=== PATIENT | female | born 1950 | race Caucasian/White ===

== ENCOUNTER 2017-06-18 11:52 | Inpatient (IN) | payer OTHER ==
[2017-06-18] MEDS ORDERED: METHYLPREDNISOLONE 125 MG INJ ONE (12:54)
[2017-06-18] MEDS ORDERED: LEVALBUTEROL 1.25 MG/3 ML NEB ONE (12:54)
--- NOTE | 2017-06-18 12:56 | RAD REPORT ---
EXAM DESCRIPTION: Vikash Single View06/18/2017 12:47 pm CLINICAL HISTORY: Shortness of breath COMPARISON: May 31, 2017 FINDINGS: The lungs appear clear of acute infiltrate. The heart is normal size IMPRESSION: No acute abnormalities displayed
[2017-06-18 13:11] LABS: Absolute Lymphocytes (CBC) 1.7 K/uL (0.7-4.9); Absolute Monocytes 0.9 K/uL (0.1-1.3); Absolute Neutrophil 17.7 K/uL (1.8-8.0); Basophils % 0.6 % (0-1.3); Hematocrit 41.8 % (36.0-45.0); Lymphocytes % 8.3 % (15.3-44.8); MCH 27.7 pg (27.0-35.0); MCV 89.2 fL (80-100); MPV 7.7 fL (7.6-11.3); Monocytes % 4.3 % (3.3-12.3); RBC Red Blood Cell Count 4.69 M/uL (3.86-4.86)
[2017-06-18 13:20] LABS: Protime INR 0.91
[2017-06-18 13:25] LABS: Potassium 4.4 mEq/L (3.6-5.0)
[2017-06-18 13:26] LABS: Magnesium 1.9 mg/dL (1.8-2.5)
[2017-06-18 13:36] LABS: CKMB Creatine Kinase MB 1.8 ng/ml (0.3-4.0)
[2017-06-18 13:47] LABS: Blood Morphology Comment NOT SEEN (NOT SEEN); Platelet Estimate ADEQ; Urine White Blood Cell Casts OK
[2017-06-18] MEDS ORDERED: ALBUTEROL 2.5 MG/3 ML NEB SOL ONE (13:57)
[2017-06-18] MEDS ORDERED: HYDROCODONE/APAP 5/325 MG TAB ONE (14:48)
--- NOTE | 2017-06-18 15:05 | ER ---
Nurse's Notes [facility] Name: Amy Velasquez Age: 67 yrs Sex: Female : 1950 Arrival Date: 06/18/2017 Time: 11:56 Bed 16 Private MD: Lucho Catalan Diagnosis: Chronic obstructive pulmonary disease with (acute) exacerbation;Dyspnea, unspecified Presentation: 06/18 11:58 Presenting complaint: Patient states: "My doctor sent me here. I have had pneumonia for lk1 2 weeks and can't get better.". Transition of care: patient was not received from another setting of care. Onset of symptoms was June 04, 2017. Care prior to arrival: None. 11:58 Method Of Arrival: Wheelchair lk1 11:58 Acuity: BHARTI 2 lk1 Triage Assessment: 12:01 General: Appears in no apparent distress. Behavior is calm, cooperative, appropriate lk1 for age. Pain: Complains of pain in back and chest. Pain: Pain currently is 9 out of 10 on a pain scale. Respiratory: Reports shortness of breath cough that is Airway is patent Respiratory effort is labored, with nasal flaring, pursed lip, Respiratory pattern is symmetrical, tachypnea Onset: The symptoms/episode began/occurred 2 weeks ago, the patient has moderate shortness of breath. Historical: - Allergies: 12:01 Amitriptyline; lk1 12:01 Cipro; lk1 12:01 Demerol; lk1 12:01 Morphine (rash, Itching); lk1 12:01 Phenobarbital; lk1 - Home Meds: 16:47 amlodipine 5 mg tab 1 tab once daily [Active]; aspirin 81 mg Oral chew 1 tab once daily [Active]; Cheratussin AC 10-100 mg/5 mL oral liqd 10 mL every 4 hours [Active]; clonazepam 1 mg Oral TbDL 1 tab once daily [Active]; clonazepam 1 mg Oral tab 1 tab 2 times per day [Active]; furosemide 20 mg Oral tab 1 tab once daily [Active]; gabapentin 400 mg oral cap 1 cap 3 times per day [Active]; lisinopril 40 mg Oral tab 1 tab twice a day [Active]; metoprolol tartrate 50 mg Oral tab 1 tab once daily [Active]; Nexium 40 mg Oral cpDR 1 cap once daily [Active]; nystatin 100,000 unit/gram Topical crea 3 times per day [Active]; oxycodone-acetaminophen 10-325 mg Oral tab 1 tab every 6 hours for Pain [Active]; prednisone 20 mg Oral tab 1 tab 2 times per day [Active]; sertraline 50 mg oral tab 3 tabs once daily [Active]; Bactrim DS 800-160 mg Oral tab 1 tab once daily [Active]; Tessalon Perles 100 mg Oral cap 1 cap 3 times per day [Active]; Ventolin Rotahaler/Rotacaps Inhl four times a day [Active]; - PMHx: 12:01 Anxiety; Asthma; Atrial Fib; CHF; COPD; Degenerative disc disease; Hernia; lk1 Hypertension; ADD/ADHD; cancer, skin; - PSHx: 12:01 Hysterectomy; Hernia repair; lypoma removed; tumor removed ovary; skin cancer removed; lk1 - Immunization history:: Adult Immunizations up to date. - Social history:: Smoking status: Patient/guardian denies using tobacco. - Family history:: not pertinent. - Hospitalizations: : No recent hospitalization is reported. Screenin:53 Abuse screen: Denies threats or abuse. Denies injuries from another. Nutritional hj screening: No deficits noted. Tuberculosis screening: No symptoms or risk factors identified. Fall Risk None identified. Assessment: 12:53 Cardiovascular: Rhythm is regular. Respiratory: Airway is patent Respiratory effort is hj labored, Respiratory pattern is regular, tachypnea Breath sounds with wheezes. 14:16 Reassessment: Patient appears in no apparent distress at this time. No changes from ch previously documented assessment. Patient and/or family updated on plan of care and expected duration. Pain level reassessed. General: Appears in no apparent distress. uncomfortable, Behavior is calm, cooperative, appropriate for age. Respiratory: Reports shortness of breath cough that is productive, Airway is patent Trachea midline Respiratory effort is even, labored, Respiratory pattern is regular, tachypnea Breath sounds are coarse bilaterally. Breath sounds with wheezes bilaterally. GI: No signs and/or symptoms were reported involving the gastrointestinal system. GI: Abdomen is obese, Bowel sounds present X 4 quads. : No signs and/or symptoms were reported regarding the genitourinary system. Derm: Skin is pale. 15:05 Reassessment: Patient appears in no apparent distress at this time. Patient and/or ch family updated on plan of care and expected duration. Pain level reassessed. pt states she feels the same. 15:05 Respiratory: Airway is patent Respiratory effort is even, labored, pt resting, states ch she feels better. pt has been off o2 for the past 30 min. pt tolerating well. Vital Signs: 12:02 BP 158 / 63; Pulse 79; Resp 24; Temp 97.2(TE); Pulse Ox 96% on R/A; Weight 164.2 kg; lk1 Height 5 ft. 4 in. (162.56 cm) (R); Pain 9/10; 14:16 BP 139 / 83; Pulse 75; Resp 24; Pulse Ox 97% on 2 lpm NC; Pain 9/10; ch 15:05 BP 152 / 72; Pulse 77; Resp 20; Temp 97.8; Pulse Ox 93% on R/A; Pain 7/10; ch 16:26 BP 136 / 87; Pulse 77; Resp 24; Temp 98.3; Pulse Ox 94% on R/A; Pain 7/10; ch 12:02 Body Mass Index 62.14 (164.20 kg, 162.56 cm) lk1 ED Course: 11:56 Patient arrived in ED. mr 11:56 Lucho Catalan MD is Private Physician. mr 11:59 Triage completed. lk1 12:04 Arm band placed on right wrist. lk1 12:07 Thom Lynn, SHAD is Primary Nurse. hj 12:19 Francis Mcintyre MD is Attending Physician. rn 12:30 EKG done, by mri special procedures technologist. reviewed by Francis Mcintyre MD. tc 12:40 X-ray completed. Portable x-ray completed in exam room. Patient tolerated procedure jb2 well. 12:42 XRAY CXR (1 view) In Process Unspecified. EDMS 12:52 Inserted saline lock: 22 gauge in right upper arm, using aseptic technique. hj 12:53 Patient has correct armband on for positive identification. Placed in gown. Bed in low hj position. Call light in reach. Side rails up X 1. Adult w/ patient. 12:57 Primary Nurse role handed off by Thom Lynn, SHAD ch 12:57 Rachel Osborne, SHAD is Primary Nurse. ch 12:59 Report received from thom. ch 15:03 Geovanna Ca MD is Hospitalizing Provider. rn 15:05 monitor technician on. Pulse ox on. NIBP on. 15:05 No provider procedures requiring assistance completed. 18:09 Patient admitted, IV remains in place. Administered Medications: 12:26 Drug: Xopenex 1.25 mg Route: Inhalation; hj 12:26 Drug: SOLU-Medrol 125 mg Route: IVP; Site: right upper arm; hj 12:58 Follow up: Response: No adverse reaction; Marked relief of symptoms 13:45 Drug: AtroVENT Aerosol 0.5 mg Route: Inhalation; 14:45 Drug: HYDROcodone-acetaminophen 5 mg-325 mg 1 tabs Route: PO; 18:07 Follow up: Response: No adverse reaction Outcome: 15:04 Decision to Hospitalize by Provider. rn 16:50 Admitted to Med/surg accompanied by tech, via wheelchair, with chart, Report called to sergio 16:50 Condition: stable 16:50 Instructed on the need for admit. 17:02 Patient left the ED. Signatures: Dispatcher [employer] EDMS Rachel Osborne, RN RN Sharifa Ruiz mr Jiménez, Elbert jb2 Francis Mcintyre MD MD rn Callis, Tiffany, benzol still operator EKG Ttc Thom Lynn RN RN hj Kluge, Leah RN RN lk1 Corrections: (The following items were deleted from the chart) 15:07 14:16 Reassessment: Patient appears in no apparent distress at this time. Patient ch and/or family updated on plan of care and expected duration. Pain level reassessed. Patient is alert, oriented x 3, equal unlabored respirations, skin warm/dry/pink. 15:07 15:05 Reassessment: Patient appears in no apparent distress at this time. Patient ch and/or family updated on plan of care and expected duration. Pain level reassessed. Patient is alert, oriented x 3, equal unlabored respirations, skin warm/dry/pink. pt states she feels the same.
--- NOTE | 2017-06-18 15:05 | EDPHYS ---
Physician Documentation [facility] Name: Amy Velasquez Age: 67 yrs Sex: Female : 1950 Arrival Date: 06/18/2017 Time: 11:56 Bed 16 Private MD: Lucho Catalan ED Physician Francis Mcintyre HPI: 06/18 13:18 This 67 yrs old Female presents to ER via Wheelchair with complaints of rn Breathing Difficulty. 13:18 The patient has shortness of breath at rest, with light activity. Onset: The rn symptoms/episode began/occurred 3 week(s) ago. Duration: The symptoms are continuous. The patient's shortness of breath is aggravated by coughing, light activity, talking. Severity of symptoms: At their worst the symptoms were moderate in the emergency department the symptoms are unchanged. The patient has experienced similar episodes in the past. Sent by Dr. Catalan for sob, patient states 3 weeks of sob, took augmentin for suspected pneumonia, + intermittent fever, + productive sputum, no chest pain, + weight gain, sleeps with 2L o2 at home, + increased dyspnea lately. . Historical: - Allergies: 12:01 Amitriptyline; lk1 12:01 Cipro; lk1 12:01 Demerol; lk1 12:01 Morphine (rash, Itching); lk1 12:01 Phenobarbital; lk1 - Home Meds: 16:47 amlodipine 5 mg tab 1 tab once daily [Active]; aspirin 81 mg Oral chew 1 tab once daily ch [Active]; Cheratussin AC 10-100 mg/5 mL oral liqd 10 mL every 4 hours [Active]; clonazepam 1 mg Oral TbDL 1 tab once daily [Active]; clonazepam 1 mg Oral tab 1 tab 2 times per day [Active]; furosemide 20 mg Oral tab 1 tab once daily [Active]; gabapentin 400 mg oral cap 1 cap 3 times per day [Active]; lisinopril 40 mg Oral tab 1 tab twice a day [Active]; metoprolol tartrate 50 mg Oral tab 1 tab once daily [Active]; Nexium 40 mg Oral cpDR 1 cap once daily [Active]; nystatin 100,000 unit/gram Topical crea 3 times per day [Active]; oxycodone-acetaminophen 10-325 mg Oral tab 1 tab every 6 hours for Pain [Active]; prednisone 20 mg Oral tab 1 tab 2 times per day [Active]; sertraline 50 mg oral tab 3 tabs once daily [Active]; Bactrim DS 800-160 mg Oral tab 1 tab once daily [Active]; Tessalon Perles 100 mg Oral cap 1 cap 3 times per day [Active]; Ventolin Rotahaler/Rotacaps Inhl four times a day [Active]; - PMHx: 12:01 Anxiety; Asthma; Atrial Fib; CHF; COPD; Degenerative disc disease; Hernia; lk1 Hypertension; ADD/ADHD; cancer, skin; - PSHx: 12:01 Hysterectomy; Hernia repair; lypoma removed; tumor removed ovary; skin cancer removed; lk1 - Immunization history:: Adult Immunizations up to date. - Social history:: Smoking status: Patient/guardian denies using tobacco. - Family history:: not pertinent. - Hospitalizations: : No recent hospitalization is reported. ROS: 13:18 Constitutional: Negative for fever, chills, and weight loss, Eyes: Negative for injury, rn pain, redness, and discharge, Neck: Negative for injury, pain, and swelling, Cardiovascular: Negative for chest pain, palpitations Respiratory: Negative for pleuritic chest pain Abdomen/GI: Negative for abdominal pain, nausea, vomiting, diarrhea, and constipation, Back: Negative for injury and pain, MS/Extremity: Negative for injury and deformity, Skin: Negative for injury, rash, and discoloration, Neuro: Negative for headache, numbness, tingling, and seizure. Exam: 13:18 Constitutional: Overweight female, mild tachypnea Head/Face: Normocephalic, rn atraumatic. Eyes: Pupils equal round and reactive to light, extra-ocular motions intact. Lids and lashes normal. Conjunctiva and sclera are non-icteric and not injected. Cornea within normal limits. Periorbital areas with no swelling, redness, or edema. ENT: no stridor Neck: Trachea midline, no thyromegaly or masses palpated, and no cervical lymphadenopathy. Supple, full range of motion without nuchal rigidity, or vertebral point tenderness. No Meningismus. Cardiovascular: Regular rate and rhythm with a normal S1 and S2. No gallops, murmurs, or rubs. Normal PMI, no JVD. No pulse deficits. Respiratory: + tachypnea with diffuse exp wheezing, no retractions Abdomen/GI: Soft, non-tender, with normal bowel sounds. No distension or tympany. No guarding or rebound. No evidence of tenderness throughout. Back: No spinal tenderness. No costovertebral tenderness. Full range of motion. MS/ Extremity: Pulses equal, no cyanosis. Neurovascular intact. Full, normal range of motion. Equal circumference. Neuro: Awake and alert, GCS 15, oriented to person, place, time, and situation. Cranial nerves II-XII grossly intact. Motor strength 5/5 in all extremities. Sensory grossly intact. Vital Signs: 12:02 BP 158 / 63; Pulse 79; Resp 24; Temp 97.2(TE); Pulse Ox 96% on R/A; Weight 164.2 kg; lk1 Height 5 ft. 4 in. (162.56 cm) (R); Pain 9/10; 14:16 BP 139 / 83; Pulse 75; Resp 24; Pulse Ox 97% on 2 lpm NC; Pain 9/10; ch 15:05 BP 152 / 72; Pulse 77; Resp 20; Temp 97.8; Pulse Ox 93% on R/A; Pain 7/10; ch 16:26 BP 136 / 87; Pulse 77; Resp 24; Temp 98.3; Pulse Ox 94% on R/A; Pain 7/10; ch 12:02 Body Mass Index 62.14 (164.20 kg, 162.56 cm) lk1 MDM: 12:19 Patient medically screened. rn 15:02 Differential diagnosis: Anemia CHF exacerbation, Chronic Obstructive Pulmonary Disease rn Myocardial Infarction pneumonia, Pneumothorax Psychogenic pulmonary edema, reactive airway disease. Data reviewed: vital signs, nurses notes, lab test result(s), EKG, radiologic studies, and as a result, I will admit patient. Counseling: I had a detailed discussion with the patient and/or guardian regarding: the historical points, exam findings, and any diagnostic results supporting the discharge/admit diagnosis, lab results, radiology results, the need for further work-up and treatment in the hospital. Response to treatment: the patient's symptoms have mildly improved after treatment, and as a result, I will admit patient. Admission orders: after a detailed discussion of the patient's condition and case, the admit orders are written by me. ED course: Symptoms only mildly improved, cxr clear, wbc 20k but may be due to steroid use, will admit for persistent dyspnea/wheezing/tachypnea. Admitted under observation status to Dr. Ca. . 06/18 12:26 Order name: Blood Culture Adult (2) rn 06/18 12:26 Order name: BMP; Complete Time: 13:38 rn 06/18 12:26 Order name: BNP; Complete Time: 13:38 rn 06/18 12:26 Order name: CBC with Diff; Complete Time: 14:14 rn 06/18 12:26 Order name: Ckmb; Complete Time: 13:38 rn 06/18 12:26 Order name: Magnesium; Complete Time: 13:38 rn 06/18 12:26 Order name: PT-INR; Complete Time: 13:38 rn 06/18 12:26 Order name: Ptt, Activated; Complete Time: 13:38 rn 06/18 12:26 Order name: Troponin (emerg Dept Use Only); Complete Time: 13:38 rn 06/18 12:26 Order name: Procalcitonin; Complete Time: 14:14 rn 06/18 12:26 Order name: Blood Culture [facility] 06/18 13:18 Order name: CBC Smear Scan; Complete Time: 14:14 [facility] 06/18 15:53 Order name: Urine Microscopic Only bd 06/18 15:56 Order name: Urine Dipstick--Ancillary (enter results) bd 06/18 12:26 Order name: XRAY CXR (1 view); Complete Time: 12:57 rn 06/18 12:26 Order name: EKG; Complete Time: 12:26 rn 06/18 12:26 Order name: Cardiac monitoring; Complete Time: 12:32 rn 06/18 12:26 Order name: EKG - Nurse/Tech; Complete Time: 12:32 rn 06/18 12:26 Order name: IV Saline Lock; Complete Time: 12:32 rn 06/18 12:26 Order name: Labs collected and sent; Complete Time: 12:57 rn 06/18 12:26 Order name: O2 Per Protocol; Complete Time: 12:32 rn 06/18 12:26 Order name: O2 Sat Monitoring; Complete Time: 12:32 rn 06/18 12:26 Order name: Urine Dipstick-Ancillary (obtain specimen); Complete Time: 16:25 rn Administered Medications: 12:26 Drug: Xopenex 1.25 mg Route: Inhalation; 12:26 Drug: SOLU-Medrol 125 mg Route: IVP; Site: right upper arm; 12:58 Follow up: Response: No adverse reaction; Marked relief of symptoms ch 13:45 Drug: AtroVENT Aerosol 0.5 mg Route: Inhalation; ch 14:45 Drug: HYDROcodone-acetaminophen 5 mg-325 mg 1 tabs Route: PO; 18:07 Follow up: Response: No adverse reaction Disposition: 06/18/17 15:04 Hospitalization ordered by Geovanna Ca for Observation. Preliminary diagnosis are Chronic obstructive pulmonary disease with (acute) exacerbation, Dyspnea, unspecified. - Bed requested for Telemetry/MedSurg (observation). - Status is Observation. - Condition is Stable. - Problem is an ongoing problem. - Symptoms have improved. UTI on Admission? No Signatures: Dispatcher [employer] EDMS Delisa Ontiveros Christina, RN RN Francis Mcintyre MD MD rn Joaquin, Henry, RN RN Ofelia Kellogg RN RN lk1
[2017-06-18] MEDS ORDERED: ALBUTEROL 2.5 MG/3 ML NEB SOL NEB PRN (15:42)
[2017-06-18] MEDS ORDERED: ACETAMINOPHEN 500 MG TAB PO PRN (15:42)
[2017-06-18] MEDS ORDERED: IPRATROPIUM BROM 0.5MG/2.5ML NEB PRN (15:42)
--- NOTE | 2017-06-18 16:26 | EKG ---
Test Date: 2017-06-18 Test Time: 12:17:47 Apple Picker: RALPH MEASUREMENT RESULTS: Intervals: Rate: 72 VA: 168 QRSD: 80 QT: 410 QTc: 448 [place]: P: 73 VA: 168 QRS: -4 T: 71 INTERPRETIVE STATEMENTS: Normal sinus rhythm with sinus arrhythmia Cannot rule out Anterior infarct, age undetermined Abnormal ECG Compared to ECG 05/31/2017 20:46:07 Ventricular premature complex(es) no longer present Myocardial infarct finding still present Electronically Signed On 06-18-17 16:24:31 CDT by Pollo Pinto
[2017-06-18 17:11] LABS: Urine Bacteria >50 /HPF (<20); Urine Culture Reflex Order REFLEXED; Urine RBC <5 /HPF (NONE SEEN)
[2017-06-18 17:14] LABS: Urine Blood TRACE (NEG); Urine Glucose NEGATIVE (NEG); Urine Protein NEGATIVE (NEG); Urine Specific Gravity 1.025 (1.005-1.030); Urine pH 5.5 (5.0-7.0)
[2017-06-18 18:00] VITALS: BMI 62.1
[2017-06-18] MEDS: ENOXAPARIN 40 MG/0.4 ML SQ SCH (18:44)
[2017-06-18] MEDS: CEFTRIAXONE/SWI 1gm 1 GM/10 ML SYR IV SCH (18:45)
[2017-06-18] MEDS: METHYLPREDNISOLONE 40 MG INJ IV SCH (18:45)
[2017-06-18] MEDS ORDERED: PROMETHAZINE 25 MG TABLET PO PRN (19:03)
[2017-06-18] MEDS ORDERED: NITROGLYCERIN 0.4 MG/TAB SL PRN (19:03)
[2017-06-18] MEDS ORDERED: HOME MED 1 EA UNK (Oxycodone Hcl/Acetaminophen [Oxycodone-Acetaminophen 10-325] 1 TAB) PO PRN (19:03)
[2017-06-18] MEDS ORDERED: HOME MED 1 EA UNK (Lisinopril [Zestril] 40 MG) PO SCH (21:00)
[2017-06-18] MEDS: GABAPENTIN 400 MG CAP PO SCH (21:00)
[2017-06-18] MEDS: FUROSEMIDE 40 MG TABLET PO SCH (21:00)
[2017-06-18] MEDS: clonazePAM 1 MG TAB PO PRN (21:05)
[2017-06-18] MEDS ORDERED: OXYCODONE *CR* 10 MG TAB PO PRN (21:14)
[2017-06-19] MEDS: METHYLPREDNISOLONE 40 MG INJ IV SCH ×2 (00:07→10:31)
--- NOTE | 2017-06-19 02:34 | HP ---
Date of Admission: 06/18/2017 Primary Care Physician: Dr. Catalan. Code Status: Full. Chief Complaint: Shortness of breath. History Of Present Illness: The patient is a 67-year-old female with past medical history of COPD, not on home oxygen, hypertension, congestive heart failure, asthma, gastroesophageal reflux disease, degenerative disk disease, morbid obesity, IBS, chronic back pain, depression, who was in her usual state of health. Recently discharged from the hospital in February of 2017. The patient reports shortness of breath especially worse with exertion. Does report some mild wheezing. No fever, cough, or chills. No ill contacts. The patient does report gaining 7 pounds in the past few days. She states she is compliant with her Lasix and her sodium restricted diet. The patient recently completed a multiple courses of antibiotics initially for pneumonia, specifically azithromycin 2 days ago. The patient also reports some generalized weakness. Her symptoms are constant, moderate, progressively worsening. No chest pain. The patient came into the ER for further evaluation. Upon arrival, her vital signs showed blood pressure 115/63, respirations 24, O2 saturation 96% on room air, temperature 97.2, pulse of 79. She was in some mild distress. Past Medical History: Hypertension, COPD, CHF, asthma, GERD, IBS, degenerative disk disease, melanoma removed from under the breast, history of liver tumor, chronic back pain, sees Pain Management Dr. Hale, depression. Past Surgical History: Left ovarian tumor removal, melanoma removed from breast , hysterectomy, and hernia repair. Social History: The patient is , is disabled, has 5 children, in good social support. Family History: Father has heart disease, hypertension, diabetes, cancer, liver disease. Mother has heart disease, hypertension, diabetes, and cancer. Sister has heart disease, hypertension, and diabetes. Brother has hypertension. Social History: Denies any alcohol use, tobacco use, or illicit drug use. Medications: Reviewed. Allergies: TO AMITRIPTYLINE, WHICH CAUSES NAUSEA, VOMITING. MEPERIDINE, MORPHINE, PHENOBARBITAL, WHICH CAUSES ITCHING, HIVES, RASH. Review of Systems: An 11-point system reviewed, negative except as above. Physical Examination: Vital Signs: Temperature 97.2, heart rate 79, blood pressure 158/62, respirations 24, O2 saturation 96% on room air. General: Awake, alert, oriented x3. Some acute distress, morbidly obese female , somewhat ill-appearing. HEENT: Normocephalic and atraumatic. PERRLA. EOMI. Moist mucous membranes. Oropharynx is clear. Normal dentition. Conjunctiva is anicteric. Neck: Supple. Trachea midline. CV: S1, S2. Regular rate and rhythm. Peripheral pulses are present bilaterally. Respiratory: Diminished breath sounds bilaterally. Some expiratory wheezes are present. No stridor. The patient is tachypneic, use of accessory muscles. Gastrointestinal: Abdomen is obese, soft, nontender, nondistended. Positive bowel sounds. No guarding or rigidity. Extremities: No clubbing, cyanosis. 1+ peripheral edema. No calf tenderness. Neuro: Cranial nerves 2 through 12 intact grossly. No focal neurological deficits. Strength is 5/5 in bilateral upper and lower extremities. Sensation intact to light touch. Skin: No rashes. Normal skin turgor. Laboratory Data: Sodium 140, potassium 4.4, chloride 100, CO2 29, BUN 23, creatinine 0.8, glucose 142, calcium 9.4, magnesium 1.9. Troponin less than 0.03. BNP 112. Procalcitonin 0.05. INR 0.91. WBC 20.4, H and H are 13 and 41.8, platelets 327, neutrophils 86%. UA pending. Chest x-ray shows no acute abnormalities. EKG shows normal sinus rhythm with sinus arrhythmia, rate of 72. Assessment And Plan: A 67-year-old female with; 1. Acute chronic obstructive pulmonary disease exacerbation. We will start on DuoNeb and IV steroids. We will monitor pulse ox. Supplemental oxygen as needed. 2. Dyspnea upon exertion likely secondary to chronic obstructive pulmonary disease. 3. Essential hypertension, resume home medications. 4. Diastolic heart failure, compensated. Chest x-ray is clear. We will resume home medications. 5. Asthma, mild intermittent. 6. Gastroesophageal reflux disease. PPI. 7. Irritable bowel syndrome. 8. Degenerative disk disease and chronic back pain, midline, without sciatica , on chronic narcotics. 9. Narcotic dependency. 10. History of melanoma, status post surgery. 11. History of liver tumor. 12. Major depressive disorder, on SSRI. 13. Morbid obesity. 14. Gastrointestinal and deep venous thrombosis prophylaxis with PPI and Lovenox. Plan: Admit the patient to Med-Surg, place as observation. No MPOA or living will /LUIS MIGUEL Voice ID: [id number] MTDD
[2017-06-19 05:08] LABS: BUN Blood Urea Nitrogen 18 mg/dL (6-20); Bicarbonate 31 mEq/L (21-31); Glomerular Filtration Rate > 90 mL/min (=/>90); Glucose Level 163 mg/dL (65-120); Potassium 4.8 mEq/L (3.6-5.0); Sodium Level 140 mEq/L (135-145)
[2017-06-19 05:10] LABS: Absolute Lymphocytes (CBC) 1.1 K/uL (0.7-4.9); Absolute Monocytes 0.2 K/uL (0.1-1.3); Absolute Neutrophil 11.8 K/uL (1.8-8.0); Basophils % 0.7 % (0-1.3); Hematocrit 40.8 % (36.0-45.0); Lymphocytes % 8.1 % (15.3-44.8); MCH 27.5 pg (27.0-35.0); MCV 88.2 fL (80-100); MPV 8.3 fL (7.6-11.3); Monocytes % 1.3 % (3.3-12.3); RBC Red Blood Cell Count 4.63 M/uL (3.86-4.86)
[2017-06-19] MEDS: PANTOPRAZOLE 40MG TABLET PO SCH (06:19)
[2017-06-19] MEDS: ASPIRIN EC 81 MG TAB PO SCH (10:31)
[2017-06-19] MEDS: AMLODIPINE 10 MG TAB PO SCH (10:31)
[2017-06-19] MEDS: METOPROLOL XL 50 MG TAB PO SCH (10:31)
[2017-06-19] MEDS: GABAPENTIN 400 MG CAP PO SCH ×2 (10:31→20:19)
[2017-06-19] MEDS: ONDANSETRON 4 MG/2 ML VIAL IV PRN ×2 (10:31→23:07)
[2017-06-19] MEDS: ENOXAPARIN 40 MG/0.4 ML SQ SCH (10:31)
[2017-06-19] MEDS: CA POLYCARBOPHIL (FIBERCON) 625 MG TAB PO SCH (10:31)
[2017-06-19] MEDS: LISINOPRIL 20 MG TAB PO SCH ×2 (10:32→20:19)
[2017-06-19] MEDS: SERTRALINE HCL 100 MG TAB PO SCH (10:32)
[2017-06-19] MEDS: FUROSEMIDE 40 MG TABLET PO SCH ×2 (10:33→18:02)
[2017-06-19] MEDS: CEFTRIAXONE/SWI 1gm 1 GM/10 ML SYR IV SCH (10:33)
[2017-06-19] MEDS: OXYCODONE *CR* 10 MG TAB PO PRN ×4 (10:57→23:06)
[2017-06-19] MEDS: clonazePAM 1 MG TAB PO PRN (14:08)
[2017-06-19] MEDS: Meropenem 1,000 MG in NA CHLORIDE 0.9% 100 ML IV SCH (18:02)
--- NOTE | 2017-06-19 19:10 | PN ---
Date of Progress Note: 06/19/2017 Subjective: The patient seen and examined. Chart reviewed and case discussed with RN. The patient states her breathing is somewhat better; however, still feeling weak, asking for her pain medications to be adjusted to every 4 hours. Review of Systems: Negative except as above. Medications: Reviewed. Physical Examination: Vital Signs: Temperature 98.4, heart rate 62, blood pressure 176/66, respirations 18, O2 96% on 2 L via nasal cannula. General: Awake, alert, and oriented x3. Morbidly obese female, somewhat ill- appearing, in mild distress. CV: S1, S2. No murmurs. Peripheral pulses present bilaterally. Respiratory: Some diminished breath sounds at the bases, otherwise moving air well. Some mild wheezing. Gastrointestinal: Abdomen is soft, nontender, nondistended. Positive bowel sounds. Extremities: No clubbing, cyanosis. Trace edema. Neurologic: Nonfocal. Laboratory Data: Sodium 140, potassium 4.8, chloride 101, CO2 31, BUN 18, creatinine 0.56, glucose 163, calcium 8.9. WBC 13.1, H and H 12.7 and 40.8, platelets 256, neutrophils 89%. Blood cultures, no growth to date. Urine culture shows 100,000 colony-forming units of gram-negative rods 4+. The patient has history of ESBL producing E. coli. Assessment: A 67-year-old female with; 1. Acute chronic obstructive pulmonary disease exacerbation. Continue DuoNebs. We will taper steroids. Continue supplemental oxygen. The patient does require home oxygen. 2. Chronic respiratory failure. The patient is on oxygen secondary to chronic obstructive pulmonary disease at home. 3. Essential hypertension, stable. 4. Diastolic heart failure, compensated. Continue home medications. 5. Mild intermittent asthma. 6. Gastroesophageal reflux disease. Continue PPI. 7. Irritable bowel syndrome. 8. Degenerative disk disease, chronic back pain in midline without sciatica, on chronic narcotics, dose adjusted. The patient brought in her pill vial, which shows that she takes hydrocodone every 4 hours as needed. 9. Narcotic dependency. 10. History of melanoma status post surgery. 11. History of liver tumor. 12. Major depressive disorder. Continue SSRI. 13. Morbid obesity, BMI of 62. 14. Gastrointestinal and deep venous thrombosis prophylaxis with PPI and Lovenox. 15. UTI acute cystitis without hematuria will start on IV antibiotics follow up on urine culture. Plan: Likely discharge in a.m. if continues to improve. Wean steroids. SA/MODL Voice ID: [id number] Report ID: [id number] MTDD
[2017-06-19] MEDS: predniSONE 20 MG TAB PO SCH (20:20)
[2017-06-20] MEDS: Meropenem 1,000 MG in NA CHLORIDE 0.9% 100 ML IV SCH ×2 (00:30→08:31)
[2017-06-20] MEDS: clonazePAM 1 MG TAB PO PRN ×3 (02:21→22:34)
[2017-06-20] MEDS: OXYCODONE *CR* 10 MG TAB PO PRN ×5 (03:49→21:00)
[2017-06-20 04:31] LABS: Absolute Lymphocytes (CBC) 1.1 K/uL (0.7-4.9); Absolute Monocytes 0.8 K/uL (0.1-1.3); Absolute Neutrophil 13.3 K/uL (1.8-8.0); Basophils % 0.5 % (0-1.3); Hematocrit 41.8 % (36.0-45.0); Lymphocytes % 7.3 % (15.3-44.8); MCH 27.9 pg (27.0-35.0); MCV 89.3 fL (80-100); MPV 8.3 fL (7.6-11.3); Potassium 4.8 mEq/L (3.6-5.0); RBC Red Blood Cell Count 4.68 M/uL (3.86-4.86)
[2017-06-20] MEDS: PANTOPRAZOLE 40MG TABLET PO SCH (06:37)
[2017-06-20] MEDS: CA POLYCARBOPHIL (FIBERCON) 625 MG TAB PO SCH (08:32)
[2017-06-20] MEDS: ENOXAPARIN 40 MG/0.4 ML SQ SCH (08:32)
[2017-06-20] MEDS: SERTRALINE HCL 100 MG TAB PO SCH (08:32)
[2017-06-20] MEDS: ASPIRIN EC 81 MG TAB PO SCH (08:32)
[2017-06-20] MEDS: predniSONE 20 MG TAB PO SCH ×2 (08:33→20:59)
[2017-06-20] MEDS: AMLODIPINE 10 MG TAB PO SCH (08:33)
[2017-06-20] MEDS: FUROSEMIDE 40 MG TABLET PO SCH ×2 (08:33→16:26)
[2017-06-20] MEDS: GABAPENTIN 400 MG CAP PO SCH ×2 (08:33→20:59)
[2017-06-20] MEDS: METOPROLOL XL 50 MG TAB PO SCH (08:33)
[2017-06-20] MEDS: LISINOPRIL 20 MG TAB PO SCH ×2 (08:33→20:59)
[2017-06-20] MEDS: CEFTRIAXONE/SWI 1gm 1 GM/10 ML SYR IV SCH (11:46)
--- NOTE | 2017-06-20 15:43 | PN ---
Date of Progress Note: 06/20/2017 The patient seen and examined. Chart reviewed and case discussed with RN. History: The patient states that she is feeling significantly weak. Her breathing has improved. Review of Systems: Negative except as above. Medications: Reviewed. Physical Examination: Vital Signs: Temperature 98.4, heart rate 60, blood pressure 151/79, respirations 20, O2 92% on 2 L via nasal cannula. General: Awake, alert, oriented x3, in some mild distress. Morbidly obese, ill-appearing female. B ND 62.1. CV: S1, S2. No murmurs. Regular rate and rhythm. Peripheral pulses present. Respiratory: Diminished breath sounds at the bases. Some mild expiratory wheezes. Gastrointestinal: Abdomen is soft, nontender, nondistended. Positive bowel sounds. Extremities: No clubbing, cyanosis. Some trace pedal edema. Neurologic: Nonfocal. Laboratory Data: Sodium 138, potassium 4.8, chloride 99, CO2 30, BUN 24, creatinine 0.81, glucose 18 9, calcium 8.6. WBC 15.2, H and H 13, 41.8, platelets 260, neutrophils 87%. Blood cultures, no grow th to date. Urine culture shows Escherichia coli, sensitivities noted. Sputum culture shows 2+ gram -negative rods. Assessment And Plan: A 67-year-old female with: 1.Acute chronic obstructive pulmonary disease exacerbation. We will continue DuoNeb and steroids. The patient does show some improvement. Still having some dry cough, but O2 saturation has improved. Will ambulate and recheck O2 levels. Chronic respiratory failure. The patient is on oxygen at [facility] secondary to chronic obstructive pulmonary disease, however, mainly at night only. 2.Essential hypertension, stable. 3.Diastolic heart failure, compensated. 4.Mild intermittent asthma. 5.Gastroesophageal reflux disease. Continue PPI. 6.Irritable bowel syndrome. 7.Degenerative disk disease. 8.Chronic back pain, midline without sciatica on chronic narcotics. 9.Narcotic dependency. 10.History of melanoma status post surgery. 11.Morbid obesity, BMI 62.1. 12.Major depressive disorder, SSRI. 13.History of liver tumor. 14.Urinary tract infection and acute cystitis. Urine culture growing Escherichia coli. Sensitiviti es noted. We will switch IV antibiotics to Rocephin as the patient does not have extended-spectrum b eta-lactamase producing Escherichia coli. 15.Gastrointestinal and deep venous thrombosis prophylaxis with PPI and Lovenox. Plan: Ambulate. Continue physical therapy. Likely discharge in the 24-48 hours if continues to imp rove. /LUIS MIGUEL Voice ID: [id number] Report ID: [id number]
[2017-06-20] MEDS: ONDANSETRON 4 MG/2 ML VIAL IV PRN (16:26)
[2017-06-20 23:41] VITALS: O2SAT 95
[2017-06-21] MEDS: OXYCODONE *CR* 10 MG TAB PO PRN ×3 (01:37→09:10)
[2017-06-21] MEDS: ONDANSETRON 4 MG/2 ML VIAL IV PRN (04:33)
[2017-06-21] MEDS: PANTOPRAZOLE 40MG TABLET PO SCH (05:25)
[2017-06-21] MEDS: ENOXAPARIN 40 MG/0.4 ML SQ SCH (09:00)
[2017-06-21] MEDS: SERTRALINE HCL 100 MG TAB PO SCH (09:11)
[2017-06-21] MEDS: CEFTRIAXONE/SWI 1gm 1 GM/10 ML SYR IV SCH (09:11)
[2017-06-21] MEDS: LISINOPRIL 20 MG TAB PO SCH (09:12)
[2017-06-21] MEDS: ASPIRIN EC 81 MG TAB PO SCH (09:12)
[2017-06-21] MEDS: FUROSEMIDE 40 MG TABLET PO SCH (09:13)
[2017-06-21] MEDS: CA POLYCARBOPHIL (FIBERCON) 625 MG TAB PO SCH (09:13)
[2017-06-21] MEDS: GABAPENTIN 400 MG CAP PO SCH (09:13)
[2017-06-21] MEDS: METOPROLOL XL 50 MG TAB PO SCH (09:13)
[2017-06-21] MEDS: predniSONE 20 MG TAB PO SCH (09:14)
[2017-06-21] MEDS: AMLODIPINE 10 MG TAB PO SCH (09:14)
[2017-06-21 09:15] VITALS: BP 150/71
[2017-06-21 09:38] VITALS: TEMP 97.1
--- NOTE | 2017-06-22 01:25 | DS ---
Date of Discharge: 06/21/2017 Admitting Diagnoses: 1.Acute chronic obstructive pulmonary disease exacerbation. 2.Essential hypertension. 3.Diastolic heart failure, chronic. 4.Mild intermittent asthma. 5.Gastroesophageal reflux disease. 6.Irritable bowel syndrome. 7.Degenerative disk disease. 8.Chronic back pain, midline without sciatica. 9.Narcotic dependency. 10.History of melanoma, status post surgery. 11.Morbid obesity, body mass index is 62.1. 12.Major depressive disorder. 13.History of liver tumor. 14.Urinary tract infection, acute cystitis secondary to Escherichia coli. Discharge Diagnoses: 1.Acute chronic obstructive pulmonary disease exacerbation, improved. 2.Urinary tract infection, acute cystitis without hematuria secondary to Escherichia coli. 3.Chronic diastolic heart failure. 4.Essential hypertension. 5.Mild intermittent asthma. 6.Gastroesophageal reflux disease without esophagitis. 7.Irritable bowel syndrome. 8.Degenerative disk disease. 9.Chronic back pain, midline without sciatica. 10.Narcotic dependency. 11.History of melanoma. 12.Morbid obesity, body mass index of 62.1. 13.Major depressive disorder. 14.History of liver tumor. Hospital Course: The patient is a 67-year-old female, who has had multiple recurrent admissions to [facility], comes in with shortness of breath. The patient was found to have some COPD type sympto ms. The patient did have some dry cough. The patient was started on DuoNeb treatments, IV steroids, which were weaned off. She was placed on supplemental oxygen as needed. Chest x-ray did not show a ny acute abnormalities. No infiltrates. The patient did well over the course of the hospital stay. Her vital signs remained stable. Her O2 saturations improved. She was able to ambulate without sig nificant hypoxia or dyspnea upon exertion. The patient was found to have acute cystitis secondary to E. coli. The patient's sputum culture grew out Pseudomonas cepacia. The patient's white count impr morgan initially, then went up slightly due to steroid induced leukocytosis. The patient was otherwise doing well. She was then discharged in a stable condition. Activity: No strenuous activity. No driving or operating heavy machinery while on narcotics. The patient was counseled on the excessive use of narcotics and to follow up with her primary care ph ysician to reduce the dose of narcotics to the lowest dose possible. Diet: Low-sodium, fluid-restricted diet. Medications: As per medication reconciliation list. Total time spent discharging the patient was 37 minutes. Physical Examination: General: Awake, alert, oriented, no acute distress. CV: S1, S2. No murmurs. Respiratory: Moving air well. No wheezing. Abdomen: Soft, nontender, nondistended. Positive bowel sounds. Extremities: No clubbing or cyanosis. Peripheral edema is present. Neuro: Nonfocal. SA/MODL Voice ID: [id number] Report ID: [id number]
== END 2017-06-21 10:59 | disposition home or self-care (01) | DRG 191 ==
LOC: ER 11:52 → ERHOLD 15:05 → 4TH 16:47 → OBSVTOIN 06-19 14:50
PROVIDERS: ADMIT Family Medicine; ATTEND Family Medicine
DX: J44.1 Chronic obstructive pulmonary disease with (acute) exacerbation (principal); I50.32 Chronic diastolic (congestive) heart failure; Z68.44 Body mass index [BMI] 60.0-69.9, adult; J96.10 Chronic respiratory failure, unspecified whether with hypoxia or hypercapnia; N30.00 Acute cystitis without hematuria; F11.20 Opioid dependence, uncomplicated; R84.5 Abnormal microbiological findings in specimens from respiratory organs and thorax; B96.20 Unspecified Escherichia coli [E. coli] as the cause of diseases classified elsewhere; I11.0 Hypertensive heart disease with heart failure; E66.01 Morbid (severe) obesity due to excess calories; J45.20 Mild intermittent asthma, uncomplicated; K21.9 Gastro-esophageal reflux disease without esophagitis; K58.9 Irritable bowel syndrome, unspecified; F32.9 Major depressive disorder, single episode, unspecified; Z85.820 Personal history of malignant melanoma of skin; M54.9 Dorsalgia, unspecified
CPT/HCPCS: 36415; 71045; 80048; 81003; 81015; 82553; 83605; 83735; 83880; 84145; 84484; 85025; 85610; 85730; 87040; 87070; 87077; 87086; 87088; 87186; 87205; 93005; 94760; 96374; 97163; 99285; G0378; J0696; J1650; J2405; J2920; J2930; J7512

== ENCOUNTER 2017-07-25 14:38 | Observation (INO) | payer OTHER ==
[2017-07-25] MEDS ORDERED: ALBUTEROL 2.5 MG/3 ML NEB SOL ONE (15:19)
[2017-07-25] MEDS ORDERED: IPRATROPIUM BROM 0.5MG/2.5ML ONE (15:20)
[2017-07-25 15:51] LABS: Absolute Lymphocytes (CBC) 1.7 K/uL (0.7-4.9); Absolute Monocytes 0.6 K/uL (0.1-1.3); Absolute Neutrophil 10.2 K/uL (1.8-8.0); Basophils % 0.2 % (0-1.3); Eosinophils % 0.1 % (0-4.4); Hematocrit 39.4 % (36.0-45.0); Lymphocytes % 13.5 % (15.3-44.8); MCH 28.2 pg (27.0-35.0); MCV 88.6 fL (80-100); MPV 7.7 fL (7.6-11.3); Monocytes % 5.1 % (3.3-12.3); RBC Red Blood Cell Count 4.45 M/uL (3.86-4.86)
[2017-07-25 15:53] LABS: Protime INR 0.93
--- NOTE | 2017-07-25 15:53 | RAD REPORT ---
EXAM DESCRIPTION: RAD - Chest Single View - 07/25/2017 3:46 pm CLINICAL HISTORY: Shortness of breath COMPARISON: June 18 TECHNIQUE: AP portable chest image was obtained 1541 hours . FINDINGS: No peripheral mass or consolidation seen. Vasculature and lung markings are increased slig htly over the prior study. Heart size is upper normal but not significantly different. Trachea is mid line. No measurable pleural effusion and no pneumothorax. No gross bony abnormality seen. No acute ao rtic findings suspected. IMPRESSION: Increased vasculature and lung markings since May. Pattern is suspicious for developing failure or volume overload.
--- NOTE | 2017-07-25 16:19 | EKG ---
Test Date: 2017-07-25 Test Time: 15:46:18 Health Care Facility Administrator: TOSHIA MEASUREMENT RESULTS: Intervals: Rate: 68 AK: 176 QRSD: 82 QT: 410 QTc: 435 Aspen: P: 88 AK: 176 QRS: 15 T: 61 INTERPRETIVE STATEMENTS: Normal sinus rhythm Possible Anterior infarct, age undetermined Abnormal ECG Compared to ECG 06/18/2017 12:17:47 Sinus arrhythmia no longer present Myocardial infarct finding still present Electronically Signed On 07-25-17 16:18:37 CDT by Krystian Charles
[2017-07-25] MEDS ORDERED: METHYLPREDNISOLONE 125 MG INJ ONE (16:48)
[2017-07-25] MEDS ORDERED: ONDANSETRON 4 MG/2 ML VIAL ONE (16:49)
[2017-07-25] MEDS ORDERED: Magnesium Sulfate 2gm IVPB 2 G/50 ML BAG IV ONE (16:49)
[2017-07-25] MEDS ORDERED: Oxycodone HCl/Acetaminophen 1 TAB TAB ONE (16:50)
[2017-07-25 17:05] LABS: Potassium 4.1 mEq/L (3.6-5.0)
[2017-07-25 17:23] LABS: Bilirubin Direct 0.1 mg/dL (0-0.2); Bilirubin Total 0.3 mg/dL (0.3-1.2); Protein, Total 8.4 g/dL (6.0-8.3)
--- NOTE | 2017-07-25 18:06 | ER ---
Nurse's Notes [facility] Name: Amy Velasquez Age: 67 yrs Sex: Female : 1950 Arrival Date: 07/25/2017 Time: 14:42 Bed 5 Private MD: Lucho Catalan Diagnosis: Unspecified combined systolic (congestive) and diastolic (congestive) heart failure;Shortness of breath Presentation: 07/25 14:43 Presenting complaint: Patient states: shortness of breath that's being there for 3 days hj now and i almost passed out today; reports fever and chills;. Transition of care: patient was not received from another setting of care. Onset of symptoms was July 25, 2017. Initial Sepsis Screen: Does the patient meet any 2 criteria? No. Patient's initial sepsis screen is negative. Does the patient have a suspected source of infection? No. Patient's initial sepsis screen is negative. Care prior to arrival: None. 14:43 Method Of Arrival: Ambulatory 14:43 Acuity: BHARTI 3 hj Triage Assessment: 14:46 General: Appears in no apparent distress. uncomfortable, obese, Behavior is calm, hj cooperative, appropriate for age. Pain: Complains of pain in chest. Respiratory: Reports shortness of breath labored breathing Onset: The symptoms/episode began/occurred yesterday, the patient has moderate shortness of breath. Historical: - Allergies: 14:46 Amitriptyline; 14:46 Cipro; 14:46 Demerol; 14:46 Morphine (rash, Itching); 14:46 Phenobarbital; - Home Meds: 14:46 amlodipine 5 mg tab 1 tab once daily [Active]; aspirin 81 mg Oral chew 1 tab once daily [Active]; Bactrim DS 800-160 mg Oral tab 1 tab once daily [Active]; Cheratussin AC 10-100 mg/5 mL Oral liqd 10 mL every 4 hours [Active]; clonazepam 1 mg Oral tab 1 tab once daily [Active]; clonazepam 1 mg Oral tab 1 tab 2 times per day [Active]; furosemide 20 mg Oral tab 1 tab once daily [Active]; gabapentin 400 mg Oral cap 1 cap 3 times per day [Active]; lisinopril 40 mg Oral tab 1 tab twice a day [Active]; metoprolol tartrate 50 mg Oral tab 1 tab once daily [Active]; Nexium 40 mg Oral cpDR 1 cap once daily [Active]; nystatin 100,000 unit/gram Topical crea 3 times per day [Active]; oxycodone-acetaminophen 10-325 mg Oral tab 1 tab every 6 hours for Pain [Active]; prednisone 20 mg Oral tab 1 tab 2 times per day [Active]; sertraline 50 mg Oral tab 3 tabs once daily [Active]; Tessalon Perles 100 mg Oral cap 1 cap 3 times per day [Active]; Ventolin Rotahaler/Rotacaps Inhl four times a day [Active]; - PMHx: 14:46 ADD/ADHD; Anxiety; Asthma; Atrial Fib; CANCER, SKIN; CHF; COPD; Degenerative disc hj disease; Hypertension; Hernia; - PSHx: 14:46 Hysterectomy; Hernia repair; lypoma removed; tumor removed ovary; skin cancer removed; hj - Immunization history:: Adult Immunizations up to date. - Social history:: Smoking status: Patient/guardian denies using tobacco. Screenin:09 Abuse screen: Denies threats or abuse. Denies injuries from another. Nutritional aj screening: No deficits noted. Tuberculosis screening: No symptoms or risk factors identified. Fall Risk None identified. Assessment: 14:47 Cardiovascular: Rhythm is. Respiratory: Airway is patent Respiratory effort is even, hj labored, Respiratory pattern is tachypnea 15:09 General: Appears in no apparent distress. uncomfortable, obese, Behavior is calm, aj cooperative, appropriate for age. Pain: Denies pain. Neuro: Level of Consciousness is awake, alert, obeys commands, Oriented to person, place, time, situation. Respiratory: Reports shortness of breath Airway is patent Respiratory effort is even, labored, Respiratory pattern is symmetrical, tachypnea. Derm: Skin is intact, is healthy with good turgor, Skin is pink, warm \T\ dry. normal. 19:28 Reassessment: Patient appears in no apparent distress at this time. Patient is alert, mg2 oriented x 3, equal unlabored respirations, skin warm/dry/pink. received on bed and asked for latham catheter insertion. Provider to be informed. 20:03 Reassessment: 4th floor nurse will call back to receive the report. ea Vital Signs: 14:47 BP 141 / 68; Pulse 76; Resp 22; Temp 98.4(TE); Pulse Ox 95% on 2 lpm NC; Weight 165.56 hj kg; Height 5 ft. 4 in. (162.56 cm); 15:45 BP 146 / 73; Pulse 71; Resp 17; Pulse Ox 94% on 2 lpm NC; hb 17:14 BP 123 / 73; Pulse 70; Resp 25; Pulse Ox 98% on 2 lpm NC; aj 18:43 BP 106 / 93; Pulse 78; Resp 26; Pulse Ox 98% on 2 lpm NC; aj 19:24 BP 121 / 67; Pulse 72; Resp 20; Pulse Ox 95% on 2 lpm NC; mg2 14:47 Body Mass Index 62.65 (165.56 kg, 162.56 cm) hj ED Course: 14:42 Patient arrived in ED. mr 14:42 Lucho Catalan MD is Private Physician. mr 14:44 Triage completed. hj 14:47 Arm band placed on right wrist. hj 15:00 You Jorge PA is PHCP. cp 15:00 Padilla Mak MD is Attending Physician. cp 15:06 Delma Sanchez, SHAD is Primary Nurse. aj 15:09 Patient has correct armband on for positive identification. aj 15:09 Inserted saline lock: 20 gauge in right antecubital area, using aseptic technique. aj Blood collected. 15:44 X-ray completed. Portable x-ray completed in exam room. Patient tolerated procedure ml well. 15:46 XRAY Chest (1 view) In Process Unspecified. EDMS 17:07 IV discontinued, intact, bleeding controlled, No redness/swelling at site. Pressure iw dressing applied. 17:08 Inserted saline lock: 20 gauge in right antecubital area, using aseptic technique. iw 18:04 Geovanna Ca MD is Hospitalizing Provider. cp 20:14 No provider procedures requiring assistance completed. Patient admitted, IV remains in lp1 place. Administered Medications: 15:20 Drug: Albuterol - atroVENT (3:1) (2.5 mg - 0.5 mg) 3 ml Route: Nebulizer; aj 17:00 Drug: Percocet (5 mg-325 mg) 2 tabs Route: PO; aj 17:12 Drug: Zofran 4 mg Route: IVP; Site: right antecubital; aj 17:13 Drug: SOLU-Medrol 125 mg Route: IVP; Site: right antecubital; aj 17:13 Drug: Magnesium Sulfate 2 grams Route: IVPB; Infused Over: 2 hrs; Site: right aj antecubital; 18:41 Drug: Lasix 40 mg Route: IVP; Site: right antecubital; aj 20:16 Follow up: Urine output 500 ml lp1 18:42 Drug: Lovenox 40 mg Route: Sub-Q; Site: right upper abdomen; aj 20:16 Follow up: Response: No adverse reaction lp1 Output: 20:16 Urine: 500ml; Total: 500ml. lp1 Outcome: 18:06 Decision to Hospitalize by Provider. cp 20:14 Condition: stable lp1 20:14 Instructed on the need for admit. 20:15 Admitted to Tele accompanied by tech, via wheelchair, room 419, with oxygen, with lp1 chart, Report called to STACIE Padron 21:02 Patient left the ED. lp1 Signatures: Dispatcher [employer] EDMS Delma Sanchez, RN Sharifa Louis Irene, RN Sakina Tan Laura, RN RN lp1 Thom Lynn RN RN hj Page, Corey, PA PA cp Baxter, Heather, RN Laurel Carmona RN RN ea Gardose, Michele, SHAD RN mg2 Corrections: (The following items were deleted from the chart) 14:49 14:47 Pulse 76bpm; Resp 22bpm; Pulse Ox 95% 2 lpm Nasal Cannula; Temp 98.4F Temporal; hj 165.56 kg; Height 5 ft. 4 in.; BMI: 62.6; hj
--- NOTE | 2017-07-25 18:07 | EDPHYS ---
Physician Documentation [facility] Name: Amy Velasquez Age: 67 yrs Sex: Female : 1950 Arrival Date: 07/25/2017 Time: 14:42 Bed 5 Private MD: Lcuho Catalan ED Physician Padilla Mak HPI: 07/25 15:20 This 67 yrs old Female presents to ER via Ambulatory with complaints of cp Shortness Of Breath. 15:20 The patient has shortness of breath with light activity. cp 15:20 Onset: The symptoms/episode began/occurred 3 day(s) ago. cp 15:20 Duration: The symptoms are continuous, and are steadily getting worse. The patient's cp shortness of breath is aggravated by walking. Associated signs and symptoms: Pertinent positives: near syncope, Pertinent negatives: chest pain, diaphoresis, fever. Severity of symptoms: in the emergency department the symptoms are unchanged. The patient has experienced similar episodes in the past, multiple times. Historical: - Allergies: 14:46 Amitriptyline; 14:46 Cipro; 14:46 Demerol; 14:46 Morphine (rash, Itching); 14:46 Phenobarbital; hj - Home Meds: 14:46 amlodipine 5 mg tab 1 tab once daily [Active]; aspirin 81 mg Oral chew 1 tab once daily [Active]; Bactrim DS 800-160 mg Oral tab 1 tab once daily [Active]; Cheratussin AC 10-100 mg/5 mL Oral liqd 10 mL every 4 hours [Active]; clonazepam 1 mg Oral tab 1 tab once daily [Active]; clonazepam 1 mg Oral tab 1 tab 2 times per day [Active]; furosemide 20 mg Oral tab 1 tab once daily [Active]; gabapentin 400 mg Oral cap 1 cap 3 times per day [Active]; lisinopril 40 mg Oral tab 1 tab twice a day [Active]; metoprolol tartrate 50 mg Oral tab 1 tab once daily [Active]; Nexium 40 mg Oral cpDR 1 cap once daily [Active]; nystatin 100,000 unit/gram Topical crea 3 times per day [Active]; oxycodone-acetaminophen 10-325 mg Oral tab 1 tab every 6 hours for Pain [Active]; prednisone 20 mg Oral tab 1 tab 2 times per day [Active]; sertraline 50 mg Oral tab 3 tabs once daily [Active]; Tessalon Perles 100 mg Oral cap 1 cap 3 times per day [Active]; Ventolin Rotahaler/Rotacaps Inhl four times a day [Active]; - PMHx: 14:46 ADD/ADHD; Anxiety; Asthma; Atrial Fib; CANCER, SKIN; CHF; COPD; Degenerative disc hj disease; Hypertension; Hernia; - PSHx: 14:46 Hysterectomy; Hernia repair; lypoma removed; tumor removed ovary; skin cancer removed; hj - Immunization history:: Adult Immunizations up to date. - Social history:: Smoking status: Patient/guardian denies using tobacco. ROS: 15:30 Constitutional: Negative for body aches, chills, fever, poor PO intake. cp 15:30 Eyes: Negative for injury, pain, redness, and discharge. cp 15:30 ENT: Negative for drainage from ear(s), ear pain, sore throat, difficulty swallowing, difficulty handling secretions. 15:30 Neck: Negative for pain with movement, pain at rest, stiffness. 15:30 Cardiovascular: Positive for edema, Negative for chest pain, palpitations. 15:30 Respiratory: Positive for shortness of breath, on exertion. Negative for cough. 15:30 Abdomen/GI: Negative for abdominal pain, nausea, vomiting, and diarrhea, black/tarry stool, rectal bleeding. 15:30 : Negative for urinary symptoms. 15:30 Skin: Negative for cellulitis, rash. 15:30 Neuro: Positive for near syncope, Negative for altered mental status, headache, weakness. 15:30 All other systems are negative. Exam: 15:30 Constitutional: The patient appears in no acute distress, alert, awake, cp non-diaphoretic, non-toxic, well developed, well nourished, morbid obesity 15:30 Head/Face: Normocephalic, atraumatic. cp 15:30 Eyes: Periorbital structures: appear normal, Pupils: equal, round, and reactive to light and accomodation, Extraocular movements: intact throughout, Conjunctiva: normal, no exudate, no injection, Sclera: no appreciated abnormality, Lids and lashes: appear normal, bilaterally. 15:30 ENT: External ear(s): are unremarkable, Ear canal(s): are normal, clear, TM's: bulging, is not appreciated, bilaterally, dullness, bilaterally, erythema, is not appreciated, bilaterally, Nose: is normal, Mouth: Lips: moist, Oral mucosa: pink and intact, moist, Posterior pharynx: is normal, airway is patent, no erythema, no exudate, Voice: is normal. 15:30 Neck: ROM/movement: is normal, is supple, without pain, no range of motions limitations, no meningismus, no nuchal rigidity. 15:30 Chest/axilla: Inspection: normal, Palpation: is normal, no crepitus, no tenderness. 15:30 Cardiovascular: Rate: normal, Rhythm: regular, Pulses: Pulses are 2+ in right radial artery and left radial artery. Edema: pedal edema, that is mild, JVD: is not appreciated. 15:30 Respiratory: mild respiratory distress is noted, Respirations: labored breathing, that is mild, intercostal retractions, are absent, shallow respirations, are not present, splinting, is not noted, Breath sounds: decreased breath sounds, that are moderate, throughout, stridor, is not appreciated, wheezing: is not appreciated. 15:30 Abdomen/GI: Inspection: obese Palpation: abdomen is soft and non-tender, in all quadrants, rebound tenderness, is not appreciated, involuntary guarding, is not appreciated. 15:30 Back: pain, is absent, ROM is normal. 15:30 Skin: cellulitis, is not appreciated, no rash present. 15:30 Neuro: Orientation: to person, place \T\ time. Mentation: lucid, able to follow commands, Cerebellar function: is grossly normal, Motor: moves all fours, strength is normal, Sensation: no obvious gross deficits. 15:51 ECG was reviewed by the Attending Physician. cp Vital Signs: 14:47 BP 141 / 68; Pulse 76; Resp 22; Temp 98.4(TE); Pulse Ox 95% on 2 lpm NC; Weight 165.56 hj kg; Height 5 ft. 4 in. (162.56 cm); 15:45 BP 146 / 73; Pulse 71; Resp 17; Pulse Ox 94% on 2 lpm NC; hb 17:14 BP 123 / 73; Pulse 70; Resp 25; Pulse Ox 98% on 2 lpm NC; aj 18:43 BP 106 / 93; Pulse 78; Resp 26; Pulse Ox 98% on 2 lpm NC; aj 19:24 BP 121 / 67; Pulse 72; Resp 20; Pulse Ox 95% on 2 lpm NC; mg2 14:47 Body Mass Index 62.65 (165.56 kg, 162.56 cm) hj MDM: 14:49 Patient medically screened. wa 16:00 Differential diagnosis: CHF exacerbation, Chronic Obstructive Pulmonary Disease cp Myocardial Infarction pneumonia, pulmonary edema, Pulmonary Embolism Unstable Angina. 17:45 Physician consultation: Geovanna Ca MD was contacted at 17:45, regarding admission, to the telemetry unit. patient's condition. 18:01 Data reviewed: vital signs, nurses notes, lab test result(s), EKG, radiologic studies, cp plain films. 18:01 Antibiotic administration: Not indicated, the patient does not have an appreciated cp infiltrate. Response to treatment: the patient's symptoms have mildly improved after treatment. 07/25 15:13 Order name: Basic Metabolic Panel; Complete Time: 17:48 cp 07/25 19:31 Interpretation: Normal except: CL 94; CO2 33; BUN 25; CRE 1.09; GFR 50. cp 07/25 15:13 Order name: BNP; Complete Time: 16:03 cp 07/25 15:13 Order name: CBC with Diff; Complete Time: 16:03 cp 03 15:13 Order name: Ckmb; Complete Time: 17:48 cp 03 15:13 Order name: CPK; Complete Time: 17:48 cp 03 15:13 Order name: LFT's; Complete Time: 17:48 cp 07/25 15:13 Order name: Magnesium; Complete Time: 17:48 cp 07/25 15:13 Order name: PT-INR; Complete Time: 16:03 cp 03 15:13 Order name: Ptt, Activated; Complete Time: 16:03 cp 03 15:13 Order name: Troponin (emerg Dept Use Only); Complete Time: 17:48 cp 07/25 15:13 Order name: XRAY Chest (1 view); Complete Time: 16:03 cp /03 16:58 Order name: Urine Dipstick--Ancillary (enter results); Complete Time: 19:30 ag 05/ 17:48 Order name: Urine Microscopic Only; Complete Time: 20:03 cp 03 20:03 Interpretation: Normal except: UWBC 5-10; UBACT 20-50; SQEPI 5-10. cp 07/25 15:13 Order name: EKG; Complete Time: 15:28 cp 07/25 15:13 Order name: Cardiac monitoring; Complete Time: 15:14 cp 07/25 15:13 Order name: EKG - Nurse/Tech; Complete Time: 17:13 cp 07/25 15:13 Order name: IV Saline Lock; Complete Time: 15:14 cp 07/25 15:13 Order name: Labs collected and sent; Complete Time: 15:15 cp 07/25 15:13 Order name: O2 Per Protocol; Complete Time: 15:15 cp 07/25 15:13 Order name: O2 Sat Monitoring; Complete Time: 15:15 cp 07/25 15:13 Order name: Urine Dipstick-Ancillary (obtain specimen); Complete Time: 17:13 cp 07/25 16:14 Order name: Labs - recollect needed; Complete Time: 16:37 iw EC:51 Rate is 68 beats/min. Rhythm is regular. IL interval is normal. QRS interval is normal. cp QT interval is normal. No ST changes noted. Interpreted by me. Reviewed by me. Administered Medications: 15:20 Drug: Albuterol - atroVENT (3:1) (2.5 mg - 0.5 mg) 3 ml Route: Nebulizer; aj 17:00 Drug: Percocet (5 mg-325 mg) 2 tabs Route: PO; aj 17:12 Drug: Zofran 4 mg Route: IVP; Site: right antecubital; aj 17:13 Drug: SOLU-Medrol 125 mg Route: IVP; Site: right antecubital; aj 17:13 Drug: Magnesium Sulfate 2 grams Route: IVPB; Infused Over: 2 hrs; Site: right aj antecubital; 18:41 Drug: Lasix 40 mg Route: IVP; Site: right antecubital; aj 20:16 Follow up: Urine output 500 ml lp1 18:42 Drug: Lovenox 40 mg Route: Sub-Q; Site: right upper abdomen; aj 20:16 Follow up: Response: No adverse reaction lp1 Disposition: 07/26 06:59 Co-signature as Attending Physician, Padilla Mak MD I agree with the assessment and wa plan of care. Disposition: 07/25/17 18:06 Hospitalization ordered by Geovanna Ca for Observation. Preliminary diagnosis are Unspecified combined systolic (congestive) and diastolic (congestive) heart failure, Shortness of breath. - Bed requested for Telemetry/MedSurg (observation). - Status is Observation. lp1 - Condition is Stable. - Problem is an acute exacerbation. - Symptoms have improved. UTI on Admission? No Signatures: Dispatcher [employer] EDMS Delma Sanchez RN SHAD aj Molly Mcdaniel RN RN iw Rocio Engel RN RN lp1 Thom Lynn RN RN You Saavedra PA PA cp Radha Ware RN RN Padilla Stone MD MD wa Corrections: (The following items were deleted from the chart) 07/25 15:33 15:13 Song ordered. cp aj 19:30 18:06 Hospitalization Ordered by Geovanna Ca MD for Observation. Preliminary diagnosis df is Unspecified combined systolic (congestive) and diastolic (congestive) heart failure; Shortness of breath. Bed requested for Telemetry/MedSurg (observation). Status is Observation. Condition is Stable. Problem is an acute exacerbation. Symptoms have improved. UTI on Admission? No. cp 19:32 19:30 Song ordered. cp mg2 21:02 19:30 07/25/2017 18:06 Hospitalization Ordered by Geovanna Ca MD for Observation. lp1 Preliminary diagnosis is Unspecified combined systolic (congestive) and diastolic (congestive) heart failure; Shortness of breath. Bed requested for Telemetry/MedSurg (observation). Status is Observation. Condition is Stable. Problem is an acute exacerbation. Symptoms have improved. UTI on Admission? No. df
[2017-07-25] MEDS ORDERED: ACETAMINOPHEN 500 MG TAB PO PRN (18:29)
[2017-07-25] MEDS ORDERED: ONDANSETRON 4 MG/2 ML VIAL IV PRN (18:29)
[2017-07-25] MEDS ORDERED: FUROSEMIDE 40 MG/4 ML VIAL ONE (18:35)
[2017-07-25] MEDS ORDERED: ENOXAPARIN 40 MG/0.4 ML SQ ONE (18:35)
[2017-07-25 19:22] LABS: Urine Blood TRACE (NEG); Urine Glucose NEGATIVE (NEG); Urine Protein NEGATIVE (NEG); Urine pH 5.5 (5.0-7.0)
[2017-07-25 20:01] LABS: Urine Bacteria 20-50 /HPF (<20); Urine Culture Reflex Order REFLEXED; Urine RBC <5 /HPF (NONE SEEN)
[2017-07-25 21:51] VITALS: BMI 63.6
[2017-07-26] MEDS: Oxycodone HCl/Acetaminophen 1 TAB TAB PO PRN ×5 (01:56→21:54)
[2017-07-26] MEDS: OXYCODONE HCL 5 MG TAB PO PRN ×5 (01:58→21:53)
[2017-07-26 05:23] LABS: Absolute Lymphocytes (CBC) 0.8 K/uL (0.7-4.9); Absolute Monocytes 0.1 K/uL (0.1-1.3); Absolute Neutrophil 8.3 K/uL (1.8-8.0); Basophils % 0.1 % (0-1.3); Lymphocytes % 8.9 % (15.3-44.8); MCH 28.4 pg (27.0-35.0); MCV 88.9 fL (80-100); MPV 7.8 fL (7.6-11.3); Monocytes % 1.3 % (3.3-12.3); RBC Red Blood Cell Count 4.16 M/uL (3.86-4.86)
[2017-07-26 05:37] LABS: Albumin 3.3 g/dL (3.2-5.5); Bilirubin Total 0.3 mg/dL (0.3-1.2); Potassium 4.6 mEq/L (3.6-5.0); Protein, Total 5.7 g/dL (6.0-8.3)
[2017-07-26] MEDS: PANTOPRAZOLE 40MG TABLET PO SCH (05:44)
--- NOTE | 2017-07-26 05:52 | P.HP ---
Certification for Inpatient Patient admitted to: Observation With expected LOS: <2 Midnights Practitioner: I am a practitioner with admitting privileges, knowledge of patient current condition, hospital course, and medical plan of care. Services: Services provided to patient in accordance with Admission requirements found in Title 42 Section 412.3 of the Code of Federal Regulations Patient History Date of Service: 07/25/17 Reason for admission: CHF exacerbation History of Present Illness: Ms Velasquez is a 67 years old woman with multiple medical problems who came to ED complaining of progressive SOB for the last 3 days. She report dry cough and wheezing. She als states that has had some fever and chills today, but she was afebrile in ER. Denied chest pain, nausea, vomiting or diarrhea. ER work up remarkable for leukocytosis 12.5, creatinine mildly elevated 1.09. CXR remarkable for vascular congestion. Allergies amitriptyline HCl [From Elavil] Allergy (Intermediate, Verified 12/18/16 04:46) Nausea/Vomiting ciprofloxacin [From Cipro] Allergy (Intermediate, Verified 06/18/17 17:27) Rash meperidine [From Demerol] Allergy (Verified 07/25/17 23:57) Itching/Hives/Rash morphine Allergy (Verified 03/21/17 22:38) Itching/Hives/Rash phenobarbital Allergy (Verified 12/18/16 04:46) Itching/Hives/Rash Home Medications: Albuterol Sulfate [Ventolin Hfa] 2 puff PO Q4HP PRN 07/25/17 Amlodipine Besylate 1 tab PO DAILY 07/25/17 Budesonide/Formoterol Fumarate [Symbicort 160-4.5 Mcg Inhaler] 2 puff PO BID 06/09 Clonazepam 1 tab PO BID 07/25/17 Esomeprazole Magnesium 40 mg PO DAILY 07/25/17 Gabapentin 1 cap PO BID 07/25/17 Lisinopril 1 tab PO BID 07/25/17 Metoprolol Succinate 1 tab PO DAILY 07/25/17 Oxycodone HCl/Acetaminophen [Oxycodone-Acetaminophen 10-325] 1 tab PO Q4HP PRN 07/25/17 Sertraline HCl 3 tab PO DAILY 07/25/17 - Past Medical/Surgical History Has patient received pneumonia vaccine in the past: Yes Diabetic: No -: HTN -: COPD -: CHF -: Asthma -: GERD -: IBS -: Degenerative Disc Disease -: Melanoma removed from under breasts -: History of Liver tumor -: Chronic back pain-Pain management-Dr. Herron -: Depression -: Left ovarian tumor -: Hysterectomy -: Hernia Repair Psychosocial/ Personal History: , Disabled, 5 children - Family History Father -: Heart disease, Hypertension, Diabetes, Cancer, Liver disease Mother -: Heart disease, Hypertension, Diabetes, Cancer Sister -: Heart disease, Hypertension, Diabetes Brother -: Hypertension - Social History Smoking Status: Former smoker Alcohol use: No CD- Drugs: No Caffeine use: Yes Place of Residence: Home Review of Systems 10-point ROS is otherwise unremarkable Physical Examination - Vital Signs Temperature: 97.1 F Blood Pressure: 131/67 Pulse: 66 Respirations: 20 Pulse Ox (%): 95 - Physical Exam General: Alert, In no apparent distress HEENT: Atraumatic, PERRLA, Mucous membr. moist/pink, EOMI, Sclerae nonicteric Neck: Supple, 2+ carotid pulse no bruit, No LAD, Without JVD or thyroid abnormality Respiratory: Normal air movement, Crackles/rales (bibasilar rales), Expiratory wheezes Cardiovascular: Regular rate/rhythm, Normal S1 S2 Gastrointestinal: Normal bowel sounds, No tenderness Musculoskeletal: No tenderness Integumentary: No rashes Neurological: Normal speech, Normal strength at 5/5 x4 extr, Normal tone, Normal affect Lymphatics: No axilla or inguinal lymphadenopathy - Studies Laboratory Data (last 24 hrs) 07/25/17 16:39: Sodium 140, Potassium 4.1, BUN 25 H, Creatinine 1.09 H, Glucose 96, Magnesium 2.0, Total Bilirubin 0.3, AST 34, ALT 34, Alkaline Phosphatase 88 07/25/17 15:25: PT 11.0, INR 0.93, APTT 24.8 07/25/17 15:25: WBC 12.5 H, Hgb 12.5, Hct 39.4, Plt Count 310 07/25/17 15:25: B-Natriuretic Peptide 139 H Assessment and Plan - Problems (Diagnosis) (1) ARF (acute renal failure) Onset Date: 06/20/15 Current Visit: No Status: Acute Qualifiers: (2) COPD (chronic obstructive pulmonary disease) Onset Date: 06/20/15 Current Visit: No Status: Chronic Qualifiers: (3) Hypertension Onset Date: 03/27/16 Current Visit: No Status: Chronic Qualifiers: Hypertension type: essential hypertension (4) Morbid obesity Onset Date: 03/26/17 Current Visit: No Status: Chronic (5) Acute on chronic diastolic CHF (congestive heart failure) Current Visit: Yes Status: Acute - Plan The patient will be admitted to the hospital due to dyspnea secondary of CHF exacerbation. She is COPD as well, CXR shows no acute infiltrate, will give empiric oral antibiotic for potential acute bronchitis. Will order diuretics and breathing treatments. - Advance Directives Does patient have a Living Will: No Does patient have a Durable POA for Healthcare: No
[2017-07-26] MEDS ORDERED: ALBUTEROL 2.5 MG/3 ML NEB SOL NEB PRN (05:55)
[2017-07-26 07:26] LABS: Blood Morphology Comment NOT SEEN (NOT SEEN); Platelet Estimate ADEQ; Urine White Blood Cell Casts OK
[2017-07-26] MEDS: FUROSEMIDE 40 MG/4 ML VIAL IV SCH ×2 (08:46→16:55)
[2017-07-26] MEDS: clonazePAM 1 MG TAB PO SCH ×2 (08:47→21:49)
[2017-07-26] MEDS: GABAPENTIN 400 MG CAP PO SCH ×2 (08:47→21:49)
[2017-07-26] MEDS: LISINOPRIL 20 MG TAB PO SCH (08:47)
[2017-07-26] MEDS: METOPROLOL TAR 50 MG TAB PO SCH (08:47)
[2017-07-26] MEDS: SERTRALINE HCL 50 MG TAB PO SCH (08:48)
[2017-07-26] MEDS ORDERED: METOPROLOL XL 50 MG TAB PO SCH (09:00)
[2017-07-26] MEDS: CEFTRIAXONE/SWI 1gm 1 GM/10 ML SYR IV SCH (10:20)
--- NOTE | 2017-07-26 12:32 | RAD REPORT ---
EXAM DESCRIPTION: RAD - Shoulder Left 2 View - 07/26/2017 12:06 pm CLINICAL HISTORY: Left shoulder pain COMPARISON: None. FINDINGS: Degenerative changes, mild, affect the AC joint and glenohumeral joint. No fracture, dislo cation or aggressive marrow lesion.
--- NOTE | 2017-07-26 19:16 | PN ---
Date of Progress Note: 07/26/2017 Subjective: The patient seen and examined, chart reviewed, and case discussed with RN. The patient still reports shortness of breath with exertion. Complaining of shoulder pain to the nurses. Review of Systems: Negative except as above. Medications: Reviewed. Physical Examination: Vital Signs: Temperature 97, heart rate 61, blood pressure 143/67, respirations 18, O2 97% on 3.5 L via nasal cannula. General: Awake, alert, oriented x3. Morbidly obese female, elderly, some mild distress. CV: S1 and S2. Peripheral pulses are present. No murmurs. Regular rate and rhythm. Respiratory: Diminished breath sounds. No wheezing or crackles. Gastrointestinal: Abdomen is soft, nontender, nondistended. Positive bowel sounds. Extremities: No clubbing, cyanosis. Peripheral edema is present. Neurologic: Nonfocal. Laboratory Data: Sodium 139, potassium 4.6, chloride 94, CO2 38, BUN 25, creatinine 0.81, glucose 17 2, and calcium 8.7. WBC 9.2, H and H 11.8, 37, and platelets 259. UA shows 4+ gram-negative rods. Shoulder x-ray personally reviewed shows degenerative changes, mild affect the AC joint and glenohume ral joint. No fracture, dislocation, or aggressive marrow lesion. Assessment: 1.Acute on chronic respiratory distress. The patient is on home oxygen at night only. Currently re quiring 4 L via nasal cannula. 2.Acute on chronic diastolic heart failure. We will continue with diuresis, fluid restriction, tish tor I's and O's strict. 3.Chronic obstructive pulmonary disease with chronic respiratory failure, on home oxygen. 4.Essential hypertension, stable. Resume home medications. 5.Morbid obesity, body mass index 63. 6.Gastroesophageal reflux disease without esophagitis. PPI. 7.Degenerative disk disease. 8.Urinary tract infection, acute cystitis without hematuria secondary to gram-negative rods. We elder l start on Rocephin. Follow up with culture, ID and sensitivity. 9.Acute kidney injury, resolved. Creatinine is normalized. We will continue to monitor. SA/MODL Voice ID: [id number] Report ID: [id number]
[2017-07-26] MEDS: Symbicort 160-4.5 Mcg Inhaler PO SCH (21:00)
[2017-07-27] MEDS: Oxycodone HCl/Acetaminophen 1 TAB TAB PO PRN ×3 (02:07→10:40)
[2017-07-27] MEDS: OXYCODONE HCL 5 MG TAB PO PRN ×3 (02:07→10:39)
[2017-07-27] MEDS: PANTOPRAZOLE 40MG TABLET PO SCH (06:07)
[2017-07-27 06:15] LABS: Albumin 3.1 g/dL (3.2-5.5); Bilirubin Total 0.3 mg/dL (0.3-1.2); Potassium 4.1 mEq/L (3.6-5.0); Protein, Total 5.3 g/dL (6.0-8.3)
[2017-07-27 07:03] LABS: Absolute Lymphocytes (CBC) 2.2 K/uL (0.7-4.9); Absolute Neutrophil 8.5 K/uL (1.8-8.0); Basophils % 0.7 % (0-1.3); Eosinophils % 0.1 % (0-4.4); Hematocrit 36.1 % (36.0-45.0); Lymphocytes % 18.8 % (15.3-44.8); MCH 27.7 pg (27.0-35.0); MPV 8.3 fL (7.6-11.3); Monocytes % 8.8 % (3.3-12.3); RBC Red Blood Cell Count 4.01 M/uL (3.86-4.86)
[2017-07-27] MEDS ORDERED: POTASSIUM 25 MEQ EFFERV TAB PO ONE (07:47)
[2017-07-27] MEDS: GABAPENTIN 400 MG CAP PO SCH (08:51)
[2017-07-27] MEDS: SERTRALINE HCL 50 MG TAB PO SCH (08:51)
[2017-07-27] MEDS: clonazePAM 1 MG TAB PO SCH (08:51)
[2017-07-27] MEDS: FUROSEMIDE 40 MG/4 ML VIAL IV SCH (08:51)
[2017-07-27] MEDS: METOPROLOL TAR 50 MG TAB PO SCH (08:52)
[2017-07-27] MEDS: CEFTRIAXONE/SWI 1gm 1 GM/10 ML SYR IV SCH (08:55)
[2017-07-27] MEDS: Symbicort 160-4.5 Mcg Inhaler PO SCH (09:41)
--- NOTE | 2017-07-27 10:14 | RAD REPORT ---
EXAM DESCRIPTION: Vikash Single View07/27/2017 6:05 am CLINICAL HISTORY: sob COMPARISON: July 25, 2017 FINDINGS: The lungs appear clear of acute infiltrate. The heart is normal size IMPRESSION: No acute abnormalities displayed
[2017-07-27] MEDS: LISINOPRIL 20 MG TAB PO SCH (10:40)
[2017-07-27 12:37] VITALS: O2SAT 98
[2017-07-27 12:39] VITALS: BP 123/44; TEMP 97.2
--- NOTE | 2017-07-28 05:55 | DS ---
Date of Discharge: 07/27/2017 Admitting Diagnoses: 1. Acute kidney injury. 2. Chronic obstructive pulmonary disease. 3. Hypertension. 4. Morbid obesity, BMI 63. 5. Acute on chronic diastolic heart failure. 6. Gastroesophageal reflux disease. 7. Irritable bowel syndrome. 8. Degenerative disk disease. 9. Depression. 10. Chronic back pain. Discharge Diagnoses: 1. [id number] respiratory distress, improved. The patient is on supplemental oxygen at home, 2 L at night. 2. Htdmy-[id number] diastolic heart failure, improving. Chest x-ray is clear. The patient will be discharged on Lasix. 3. Chronic obstructive pulmonary disease with chronic respiratory failure, 2 L of oxygen at night. 4. Essential hypertension, stable. 5. Morbid obesity BMI 63. 6. Gastroesophageal reflux disease without esophagitis, PPI. 7. Degenerative disk disease. 8. Back pain, midline, without sciatica. 9. Urinary tract infection, acute cystitis secondary to Escherichia coli, sensitivities noted. We will finish a course of antibiotics with cefuroxime. 10. Acute kidney injury, improved. Hospital Course: The patient is a frequent flyer to the hospital. A 67-year- old female, who comes in with CHF exacerbation. Her chest x-ray showed some vascular congestion. She did have some mild leukocytosis. Her UA was positive and grew out E. coli which was treated with Rocephin. The patient otherwise did well. She was able to be titrated back to her home level of oxygen requirement. She was able to ambulate. She does report some pain in her shoulder and back. However, this is chronic. The patient is morbidly obese. She is 5 feet 4 inches tall and 370 pounds. The patient needs to have bariatric surgery performed in order to improve her morbidity and mortality. The patient was doing well. She no longer had any shortness of breath, back to her baseline, able to ambulate. She was then cleared for discharge and sent home in a stable condition. Activity: No strenuous activity. Diet: Heart healthy, low-sodium, 2 g, 100 mL fluid restriction. Followup: Follow up with primary care physician in 2-3 days. Follow up with tie carrier 1 week. Return to ER for worsening condition. Medications: As per medication reconciliation list. Physical Examination: General: Awake, alert, oriented, in no acute distress, morbidly obese elderly female. CVS: S1, S2. No murmurs. Respiratory: Moving air well however some dominished breath sounds at the bases. Gastrointestinal: Abdomen is soft, nontender, nondistended. Positive bowel sounds. Extremities: No clubbing, cyanosis. Trace edema. Neurologic: Nonfocal. ADDENDUM: pt was not dc due to dyspnea upon exertion. /LUIS MIGUEL Voice ID: [id number] Report ID: [id number] [facility]
== END 2017-07-27 13:09 | disposition home or self-care (01) ==
LOC: ER 14:38 → ERHOLD 18:13 → 4TH 19:42
PROVIDERS: ADMIT Family Medicine; ATTEND Internal Medicine
DX: I11.0 Hypertensive heart disease with heart failure (principal); I50.33 Acute on chronic diastolic (congestive) heart failure; R06.03 Acute respiratory distress; J44.9 Chronic obstructive pulmonary disease, unspecified; E66.01 Morbid (severe) obesity due to excess calories; Z68.44 Body mass index [BMI] 60.0-69.9, adult; K21.9 Gastro-esophageal reflux disease without esophagitis; N30.00 Acute cystitis without hematuria; B96.20 Unspecified Escherichia coli [E. coli] as the cause of diseases classified elsewhere; N17.9 Acute kidney failure, unspecified; Z87.891 Personal history of nicotine dependence; Z88.0 Allergy status to penicillin
CPT/HCPCS: 36415 ×2; 71045 ×2; 73030; 80048; 80053 ×2; 80076; 82550; 82553; 83735; 83880; 84484; 85025 ×3; 85610; 85730; 87077; 87086; 87088; 87186; 93005; 94640; 94760 ×4; 96372; 96374; 96375; 99285; G0378 ×2; J0696 ×2; J1650; J2405; J2930; J3475; 81003; 81015

== ENCOUNTER 2017-11-12 12:09 | Inpatient (IN) | payer OTHER ==
[2017-11-12] MEDS ORDERED: LIDOCAINE 1% MPF 5 ML VIAL ONE (14:55)
[2017-11-12] MEDS ORDERED: FENTANYL CITR 100 MCG/2 ML ONE ×2 (15:27→15:58)
[2017-11-12] MEDS ORDERED: ONDANSETRON 4 MG/2 ML VIAL ONE (15:27)
[2017-11-12] MEDS ORDERED: FAMOTIDINE 20 MG/2 ML VIAL IV ONE (15:27)
[2017-11-12] MEDS ORDERED: Meropenem 1 GM/100 ML BAG ONE (15:27)
[2017-11-12] MEDS ORDERED: NA CHLORIDE 0.9% 1,000 ML ONE (15:27)
--- NOTE | 2017-11-12 15:32 | EDPHYS ---
Physician Documentation [facility] Name: Amy Velasquez Age: 67 yrs Sex: Female : 1950 Arrival Date: 11/12/2017 Time: 12:12 Bed 8 Private MD: Justin Benitez; out of town, doctor ED Physician You Dao HPI: 11/12 13:22 This 67 yrs old Female presents to ER via Wheelchair with complaints of phoebe INFECTION. 13:22 The patient presents with abdominal pain in the upper abdomen, in the lower abdomen. phoebe Onset: The symptoms/episode began/occurred 3 day(s) ago. fever , weakness, resistant uti. Onset: The symptoms/episode began/occurred 3 day(s) ago. The symptoms do not radiate. Associated signs and symptoms: none. The symptoms are described as crampy. Modifying factors: The symptoms are alleviated by nothing, the symptoms are aggravated by nothing. The patient reports fever, that was measured at 102 degrees Fahrenheit. Severity of pain: At its worst the pain was mild moderate. Historical: - Allergies: 12:28 Amitriptyline; ph 12:28 Phenobarbital; ph 12:28 Cipro; ph - Home Meds: 12:28 amlodipine 5 mg tab 1 tab once daily [Active]; aspirin 81 mg Oral chew 1 tab once daily ph [Active]; Cheratussin AC 10-100 mg/5 mL Oral liqd 10 mL every 4 hours [Active]; clonazepam 1 mg Oral tab 1 tab once daily [Active]; clonazepam 1 mg Oral tab 1 tab 2 times per day [Active]; furosemide 20 mg Oral tab 1 tab once daily [Active]; gabapentin 400 mg Oral cap 1 cap 3 times per day [Active]; lisinopril 40 mg Oral tab 1 tab twice a day [Active]; metoprolol tartrate 50 mg Oral tab 1 tab once daily [Active]; Nexium 40 mg Oral cpDR 1 cap once daily [Active]; nystatin 100,000 unit/gram Topical crea 3 times per day [Active]; oxycodone-acetaminophen 10-325 mg Oral tab 1 tab every 6 hours for Pain [Active]; prednisone 20 mg Oral tab 1 tab 2 times per day [Active]; sertraline 50 mg Oral tab 3 tabs once daily [Active]; Tessalon Perles 100 mg Oral cap 1 cap 3 times per day [Active]; Ventolin Rotahaler/Rotacaps Inhl four times a day [Active]; - PMHx: 12:28 ADD/ADHD; Anxiety; Asthma; Atrial Fib; CANCER, SKIN; CHF; COPD; Degenerative disc ph disease; Hernia; Hypertension; - PSHx: 12:28 Hysterectomy; lypoma removed; Hernia repair; tumor removed ovary; skin cancer removed; ph - Immunization history:: Adult Immunizations up to date. - Social history:: Smoking status: Patient/guardian denies using tobacco. - Family history:: not pertinent. - Ebola Screening: : No symptoms or risks identified at this time. ROS: 13:22 Eyes: Negative for injury, pain, redness, and discharge, ENT: Negative for injury, phoebe pain, and discharge, Neck: Negative for injury, pain, and swelling, Cardiovascular: Negative for chest pain, palpitations, and edema, Respiratory: Negative for shortness of breath, cough, wheezing, and pleuritic chest pain, Back: Negative for injury and pain, : Negative for injury, bleeding, discharge, and swelling, MS/Extremity: Negative for injury and deformity, Skin: Negative for injury, rash, and discoloration, Neuro: Negative for headache, weakness, numbness, tingling, and seizure, Psych: Negative for depression, anxiety, suicide ideation, homicidal ideation, and hallucinations, Allergy/Immunology: Negative for hives, rash, and allergies, Endocrine: Negative for neck swelling, polydipsia, polyuria, polyphagia, and marked weight changes, Hematologic/Lymphatic: Negative for swollen nodes, abnormal bleeding, and unusual bruising. 13:22 Abdomen/GI: Positive for abdominal pain, abdominal distension. Exam: 13:22 Constitutional: This is a well developed, well nourished patient who is awake, alert, phoebe and in no acute distress. Head/Face: Normocephalic, atraumatic. Eyes: Pupils equal round and reactive to light, extra-ocular motions intact. Lids and lashes normal. Conjunctiva and sclera are non-icteric and not injected. Cornea within normal limits. Periorbital areas with no swelling, redness, or edema. ENT: Nares patent. No nasal discharge, no septal abnormalities noted. Tympanic membranes are normal and external auditory canals are clear. Oropharynx with no redness, swelling, or masses, exudates, or evidence of obstruction, uvula midline. Mucous membranes moist. Neck: Trachea midline, no thyromegaly or masses palpated, and no cervical lymphadenopathy. Supple, full range of motion without nuchal rigidity, or vertebral point tenderness. No Meningismus. Chest/axilla: Normal chest wall appearance and motion. Nontender with no deformity. No lesions are appreciated. Cardiovascular: Regular rate and rhythm with a normal S1 and S2. No gallops, murmurs, or rubs. Normal PMI, no JVD. No pulse deficits. Respiratory: Lungs have equal breath sounds bilaterally, clear to auscultation and percussion. No rales, rhonchi or wheezes noted. No increased work of breathing, no retractions or nasal flaring. Back: No spinal tenderness. No costovertebral tenderness. Full range of motion. Female : Normal external genitalia. Skin: Warm, dry with normal turgor. Normal color with no rashes, no lesions, and no evidence of cellulitis. MS/ Extremity: Pulses equal, no cyanosis. Neurovascular intact. Full, normal range of motion. Neuro: Awake and alert, GCS 15, oriented to person, place, time, and situation. Cranial nerves II-XII grossly intact. Motor strength 5/5 in all extremities. Sensory grossly intact. Cerebellar exam normal. Normal gait. Psych: Awake, alert, with orientation to person, place and time. Behavior, mood, and affect are within normal limits. 13:22 Abdomen/GI: Inspection: distension, Bowel sounds: normal, Palpation: mild abdominal tenderness, in the posterior aspect of right lateral abdomen, posterior aspect of left lateral abdomen, right lower quadrant and left lower quadrant. Vital Signs: 12:29 BP 158 / 80; Pulse 82; Resp 22; Temp 97.7(O); Pulse Ox 96% on R/A; Weight 163.29 kg; ph Height 5 ft. 3 in. (160.02 cm); Pain 8/10; 13:30 BP 168 / 88; Pulse 80; Resp 20; Pulse Ox 96% on R/A; hb 14:30 BP 160 / 80; Pulse 84; Resp 19; Pulse Ox 97% on R/A; hb 15:30 BP 168 / 98; Pulse 86; Resp 22; Pulse Ox 96% on R/A; hb 17:07 BP 143 / 77; Pulse 88; Resp 17 S; Temp 97.7; Pulse Ox 95% on R/A; Pain 6/10; sg 12:29 Body Mass Index 63.77 (163.29 kg, 160.02 cm) ph Procedures: 15:26 Central Line: the site was prepped with Betadine, in sterile fashion, a triple lumen [facility] catheter was inserted, in the right femoral vein, in 1 attempts. placement was verified, by blood return, the site was dressed with using sterile technique, the patient tolerated the procedure, well. MDM: 12:46 Patient medically screened. [facility] 13:27 Data reviewed: vital signs, nurses notes, lab test result(s), EKG, radiologic studies, [facility] CT scan, plain films. 11/12 13:20 Order name: Basic Metabolic Panel; Complete Time: 16:56 [facility] 11/12 13:20 Order name: CBC with Diff; Complete Time: 15:51 [facility] 11/12 13:20 Order name: Ckmb; Complete Time: 16:56 [facility] 11/12 13:20 Order name: CPK; Complete Time: 16:56 [facility] 11/12 13:20 Order name: LFT's; Complete Time: 16:56 [facility] 11/12 13:20 Order name: Magnesium; Complete Time: 16:56 [facility] 11/12 13:20 Order name: NT PRO-BNP; Complete Time: 16:56 [facility] 11/12 13:20 Order name: PT-INR; Complete Time: 16:56 [facility] 11/12 13:20 Order name: Ptt, Activated; Complete Time: 16:56 [facility] 11/12 13:20 Order name: Troponin (emerg Dept Use Only); Complete Time: 16:56 [facility] 11/12 13:20 Order name: Lipase; Complete Time: 16:56 [facility] 11/12 13:20 Order name: Blood Culture Adult (2) [facility] 11/12 13:20 Order name: Urine Culture [facility] 11/12 13:22 Order name: Procalcitonin; Complete Time: 16:56 [facility] 11/12 13:20 Order name: XRAY Chest (1 view) [facility] 11/12 13:20 Order name: EKG; Complete Time: 13:21 [facility] 11/12 13:20 Order name: Cardiac monitoring; Complete Time: 14:33 [facility] 11/12 13:20 Order name: EKG - Nurse/Tech; Complete Time: 14:33 [facility] 11/12 13:20 Order name: IV Saline Lock; Complete Time: 15:33 [facility] 11/12 13:22 Order name: Lactate; Complete Time: 16:56 [facility] 11/12 14:29 Order name: Chest Abd Pelvis Wo Con; Complete Time: 16:56 [facility] 11/12 14:53 Order name: Urine Dipstick--Ancillary (enter results) 11/12 15:40 Order name: CONS Physician Consult [facility] 11/12 13:20 Order name: Labs collected and sent; Complete Time: 15:33 [facility] 11/12 13:20 Order name: O2 Per Protocol; Complete Time: 14:33 [facility] 11/12 13:20 Order name: O2 Sat Monitoring; Complete Time: 14:33 [facility] 11/12 13:20 Order name: Urine Dipstick-Ancillary (obtain specimen); Complete Time: 14:33 [facility] 11/12 14:33 Order name: Song; Complete Time: 14:33 hb Administered Medications: 15:32 Drug: Pepcid 20 mg Route: IVP; Site: right femoral; sg 16:00 Follow up: Response: No adverse reaction hb 15:32 Drug: NS 0.9% 1000 ml Route: IV; Rate: 125 ml/hr; Site: right femoral; sg 17:30 Follow up: Response: No adverse reaction; IV Status: Completed infusion; Infusion hb continued upon admission 15:32 Drug: fentaNYL (PF) 50 mcg Route: IVP; Site: right femoral; hb 15:45 Follow up: Response: No adverse reaction hb 15:33 Drug: Meropenem 1 grams Route: IV; Rate: per protocol; Site: right femoral; sg 16:30 Follow up: Response: No adverse reaction; IV Status: Completed infusion hb 16:10 Drug: fentaNYL (PF) 50 mcg Route: IVP; Site: right femoral; hb 16:30 Follow up: Response: No adverse reaction hb 17:05 Drug: Albuterol - atroVENT (3:1) (2.5 mg - 0.5 mg) 3 ml Route: Nebulizer; hb 17:30 Follow up: Response: No adverse reaction hb Disposition: 11/12/17 15:32 Hospitalization ordered by Hola Aguilera for Inpatient Admission. Preliminary diagnosis are Weakness, Cystitis, Fever, unspecified, Obesity, unspecified. - Bed requested for Telemetry/MedSurg (Inpatient). - Status is Inpatient Admission. hb - Condition is Stable. - Problem is new. - Symptoms have improved. UTI on Admission? Yes Signatures: Dispatcher [employer] [facility] Delisa Ontiveros Yousuf Melton, SHAD RN You Sutton MD MD cha Hall, Patricia, RN RN Jeanne Zuniga RN RN Corrections: (The following items were deleted from the chart) 14:26 13:21 Chest Abdomen Pelvis Wo Con+CT.RAD.BRZ ordered. [facility] 16:54 15:32 Hospitalization Ordered by Hola Aguilera DO for Inpatient Admission. Preliminary bd diagnosis is Weakness; Cystitis; Fever, unspecified; Obesity, unspecified. Bed requested for Telemetry/MedSurg (Inpatient). Status is Inpatient Admission. Condition is Stable. Problem is new. Symptoms have improved. UTI on Admission? Yes. [facility] 17:20 16:54 11/12/2017 15:32 Hospitalization Ordered by Hola Aguilera DO for Inpatient hb Admission. Preliminary diagnosis is Weakness; Cystitis; Fever, unspecified; Obesity, unspecified. Bed requested for Telemetry/MedSurg (Inpatient). Status is Inpatient Admission. Condition is Stable. Problem is new. Symptoms have improved. UTI on Admission? Yes. bd 17:31 17:20 11/12/2017 15:32 Hospitalization Ordered by Hola Aguilera DO for Inpatient hb Admission. Preliminary diagnosis is Weakness; Cystitis; Fever, unspecified; Obesity, unspecified. Bed requested for Telemetry/MedSurg (Inpatient). Status is Inpatient Admission. Condition is Stable. Problem is new. Symptoms have improved. UTI on Admission? Yes. hb
--- NOTE | 2017-11-12 15:32 | ER ---
Nurse's Notes [facility] Name: Amy Velasquez Age: 67 yrs Sex: Female : 1950 Arrival Date: 11/12/2017 Time: 12:12 Bed 8 Private MD: Justin Benitez; out of town, doctor Diagnosis: Weakness;Cystitis;Fever, unspecified;Obesity, unspecified Presentation: 11/12 12:23 Presenting complaint: Patient states: " Home health tested my urine a few days ago and ph they said today that I have E coli and need IV antibiotics." Pt reports abdominal pain, lora low back pain, burning w/ urination, N/V, and chills, reports being on PO Cipro and amoxicillin w/ no relief. Transition of care: patient was not received from another setting of care. Onset of symptoms was November 12, 2017. Risk Assessment: Do you want to hurt yourself or someone else? Patient reports no desire to harm self or others. Initial Sepsis Screen: Does the patient meet any 2 criteria? No. Patient's initial sepsis screen is negative. Does the patient have a suspected source of infection? Yes: Dysuria/Frequency/Urgency/UTI. Care prior to arrival: None. 12:23 Method Of Arrival: Wheelchair ph 12:23 Acuity: BHARTI 3 ph Historical: - Allergies: 12:28 Amitriptyline; ph 12:28 Phenobarbital; ph 12:28 Cipro; ph - Home Meds: 12:28 amlodipine 5 mg tab 1 tab once daily [Active]; aspirin 81 mg Oral chew 1 tab once daily ph [Active]; Cheratussin AC 10-100 mg/5 mL Oral liqd 10 mL every 4 hours [Active]; clonazepam 1 mg Oral tab 1 tab once daily [Active]; clonazepam 1 mg Oral tab 1 tab 2 times per day [Active]; furosemide 20 mg Oral tab 1 tab once daily [Active]; gabapentin 400 mg Oral cap 1 cap 3 times per day [Active]; lisinopril 40 mg Oral tab 1 tab twice a day [Active]; metoprolol tartrate 50 mg Oral tab 1 tab once daily [Active]; Nexium 40 mg Oral cpDR 1 cap once daily [Active]; nystatin 100,000 unit/gram Topical crea 3 times per day [Active]; oxycodone-acetaminophen 10-325 mg Oral tab 1 tab every 6 hours for Pain [Active]; prednisone 20 mg Oral tab 1 tab 2 times per day [Active]; sertraline 50 mg Oral tab 3 tabs once daily [Active]; Tessalon Perles 100 mg Oral cap 1 cap 3 times per day [Active]; Ventolin Rotahaler/Rotacaps Inhl four times a day [Active]; - PMHx: 12:28 ADD/ADHD; Anxiety; Asthma; Atrial Fib; CANCER, SKIN; CHF; COPD; Degenerative disc ph disease; Hernia; Hypertension; - PSHx: 12:28 Hysterectomy; lypoma removed; Hernia repair; tumor removed ovary; skin cancer removed; ph - Immunization history:: Adult Immunizations up to date. - Social history:: Smoking status: Patient/guardian denies using tobacco. - Family history:: not pertinent. - Ebola Screening: : No symptoms or risks identified at this time. Screenin:53 Abuse screen: Denies threats or abuse. Denies injuries from another. Nutritional hb screening: No deficits noted. Tuberculosis screening: No symptoms or risk factors identified. Fall Risk None identified. Assessment: 13:25 General: Appears in no apparent distress. Behavior is calm, cooperative. Pain: Pain hb currently is 5 out of 10 on a pain scale. Neuro: Level of Consciousness is awake, alert, obeys commands, Oriented to person, place, time, situation. Cardiovascular: Capillary refill < 3 seconds Patient's skin is warm and dry. Respiratory: Airway is patent Trachea midline Respiratory effort is even, unlabored, Respiratory pattern is regular, symmetrical, Breath sounds are clear bilaterally. GI: No signs and/or symptoms were reported involving the gastrointestinal system. : Reports urgency, urinary frequency. EENT: No signs and/or symptoms were reported regarding the EENT system. Derm: No signs and/or symptoms reported regarding the dermatologic system. Skin is intact, is healthy with good turgor, Skin is pink, warm \\T\\ dry. Musculoskeletal: No signs and/or symptoms reported regarding the musculoskeletal system. 13:45 Reassessment: Umable to esablish PIV access, DIEGO Tapia Rn and Dr. Dao notified. hb 13:46 Reassessment: DIEGO Tapia RN at bedside. hb 14:15 Reassessment: Rory Wylie RN at bedside to establish IV access. hb 14:20 Reassessment: Patient appears in no apparent distress at this time. Patient and/or hb family updated on plan of care and expected duration. Pain level reassessed. 14:26 Reassessment: Unable to establish IV access, Dr. Dao notified. hb 14:58 Reassessment: Dr. Dao at bedside for CVC placement. hb 15:32 Reassessment: Pt transported to MD via stretcher with tech. hb Vital Signs: 12:29 BP 158 / 80; Pulse 82; Resp 22; Temp 97.7(O); Pulse Ox 96% on R/A; Weight 163.29 kg; ph Height 5 ft. 3 in. (160.02 cm); Pain 8/10; 13:30 BP 168 / 88; Pulse 80; Resp 20; Pulse Ox 96% on R/A; hb 14:30 BP 160 / 80; Pulse 84; Resp 19; Pulse Ox 97% on R/A; hb 15:30 BP 168 / 98; Pulse 86; Resp 22; Pulse Ox 96% on R/A; hb 17:07 BP 143 / 77; Pulse 88; Resp 17 S; Temp 97.7; Pulse Ox 95% on R/A; Pain 6/10; sg 12:29 Body Mass Index 63.77 (163.29 kg, 160.02 cm) ph ED Course: 12:12 Patient arrived in ED. sb2 12:12 Justin Benitez DO is Private Physician. sb2 12:13 out of [facility], doctor is Private Physician. sb2 12:26 Triage completed. ph 12:29 Arm band placed on. ph 12:46 You Dao MD is Attending Physician. phoebe 13:42 EKG done, by p 3 armament/ordnance ima technician. reviewed by You Dao MD. sm3 13:45 Patient has correct armband on for positive identification. Placed in gown. Bed in low hb position. Call light in reach. Side rails up X2. 13:46 Missed attempt(s): 24 gauge in right upper arm. Bleeding controlled, band aid applied, hb catheter tip intact. 13:50 Missed attempt(s): 24 gauge in right hand. Bleeding controlled, band aid applied, ss catheter tip intact. 13:52 X-ray completed. Portable x-ray completed in exam room. Patient tolerated procedure ml well. 13:53 XRAY Chest (1 view) In Process Unspecified. EDMS 14:01 Missed attempt(s): 24 gauge in right antecubital area. Bleeding controlled, band aid ss applied, catheter tip intact. 14:25 Song cath inserted, using sterile technique, 16 Fr., by ok, balloon inflated, to hb gravity drainage, urine specimen collected. returned clear yellow urine. 14:33 Jeanne Zuniga, RN is Primary Nurse. hb 15:00 Assisted provider with central line placement. Set up central line tray. Triple lumen hb line placed in right femoral. Line placed by You Dao MD Placement verified by blood return, Dressed with Tegaderm, Blood was collected. Patient tolerated well. 15:32 Hola Aguilera DO is Hospitalizing Provider. phoebe 15:42 CT completed. Patient tolerated procedure well. Patient moved back from CT. 17:15 Patient admitted, IV remains in place. hb 17:28 Primary Nurse role handed off by Jeanne Zuniag, RN hb Administered Medications: 15:32 Drug: Pepcid 20 mg Route: IVP; Site: right femoral; sg 16:00 Follow up: Response: No adverse reaction hb 15:32 Drug: NS 0.9% 1000 ml Route: IV; Rate: 125 ml/hr; Site: right femoral; sg 17:30 Follow up: Response: No adverse reaction; IV Status: Completed infusion; Infusion hb continued upon admission 15:32 Drug: fentaNYL (PF) 50 mcg Route: IVP; Site: right femoral; hb 15:45 Follow up: Response: No adverse reaction hb 15:33 Drug: Meropenem 1 grams Route: IV; Rate: per protocol; Site: right femoral; sg 16:30 Follow up: Response: No adverse reaction; IV Status: Completed infusion hb 16:10 Drug: fentaNYL (PF) 50 mcg Route: IVP; Site: right femoral; hb 16:30 Follow up: Response: No adverse reaction hb 17:05 Drug: Albuterol - atroVENT (3:1) (2.5 mg - 0.5 mg) 3 ml Route: Nebulizer; hb 17:30 Follow up: Response: No adverse reaction hb Output: 17:12 Urine: 450ml (Song); Total: 450ml. sg Outcome: 15:32 Decision to Hospitalize by Provider. phoebe 17:00 Admitted to Tele accompanied by tech, family with patient, via stretcher, room 416, hb Report called to SHAD Friedman 17:00 Condition: stable 17:00 Instructed on the need for admit, Demonstrated understanding of instructions. 17:20 Patient left the ED. hb 17:31 Patient left the ED. hb Signatures: Dispatcher [employer] EDMS Yousuf Melton, SHAD RN You Sutton MD MD cha Jones, Amy Agudelo, Regina Cabral RN RN Sailaja Vaca RN RN Jeanne Zuniga RN RN Elba Sneed sb2 Arianna Slater sm3 Corrections: (The following items were deleted from the chart) 14:01 14:01 Missed attempt(s): 24 gauge in right antecubital area. [facility] 17:30 15:30 fentaNYL (PF) 50 mcg IVP in right femoral hb hb
[2017-11-12 15:35] LABS: Protime INR 1.01
[2017-11-12 15:47] LABS: Absolute Lymphocytes (CBC) 2.8 K/uL (0.7-4.9); Absolute Monocytes 1.1 K/uL (0.1-1.3); Absolute Neutrophil 9.4 K/uL (1.8-8.0); Basophils % 0.6 % (0-1.3); Eosinophils % 1.4 % (0-4.4); Hematocrit 40.6 % (36.0-45.0); Lymphocytes % 20.9 % (15.3-44.8); MCV 87.9 fL (80-100); MPV 7.9 fL (7.6-11.3); Monocytes % 7.8 % (3.3-12.3); RBC Red Blood Cell Count 4.62 M/uL (3.86-4.86)
[2017-11-12 15:53] LABS: ALT/SGPT 18 U/L (12-78); AST/SGOT 16 U/L (15-37); Albumin 3.2 g/dL (3.4-5.0); Alkaline Phosphatase 89 U/L (45-117); BUN Blood Urea Nitrogen 14 mg/dL (7-18); Bicarbonate 35 mmol/L (21-32); Bilirubin Direct < 0.1 mg/dL (0-0.2); Bilirubin Total 0.2 mg/dL (0.2-1.0); Creatine Phosphokinase 72 U/L (26-192); Glucose Level 107 mg/dL (74-106); Lipase 54 U/L (73-393); NT PRO-BNP 663 pg/mL (<125); Protein, Total 6.6 g/dL (6.4-8.2); Sodium Level 141 mmol/L (136-145)
--- NOTE | 2017-11-12 15:55 | RAD REPORT ---
EXAM DESCRIPTION: CT - Chest Abd Pelvis Wo Con - 11/12/2017 3:42 pm CLINICAL HISTORY: Cough, abdominal pain, abdominal distention COMPARISON: CT chest May 2017 TECHNIQUE: Axial 5 millimeter thick images of the chest, abdomen and pelvis were obtained. No oral o r IV contrast administered. All CT scans are performed using dose optimization technique as appropriate and may include automated exposure control or mA/KV adjustment according to patient size. FINDINGS: No suspicious mass or infiltrate of the lung parenchyma. Minimal scarring or atelectasis a t each lung base. No pneumothorax or pleural effusion. No chest wall mass or abnormal axillary lymph adenopathy seen. Mediastinal and hilar regions show no mass or lymphadenopathy. No significant card iac finding. Liver size is normal. In the posterior subcapsular dome (image 41/127) there is a 2.6 centimeter roun d low-density mass. This is not clearly seen on the prior study though the comparison is not consider ed adequate. This could simply be at a hemangioma. A follow-up nonemergent liver ultrasound could be performed. Spleen and pancreas are unremarkable. No gallbladder or biliary tree abnormality. Stones a nd sludge can be occult. No hydronephrosis or acute renal parenchymal process identifiable on noncontrast imaging. Isodense ma sses and pyelonephritis are not excluded. Urinary bladder is fully contracted around a Song catheter and is not further assessed. Uterus is absent. Ovaries are absent or atrophic. No adnexal abnormalit y. No adrenal abnormalities. No dilated bowel loops or focal ball bowel wall thickening. No free air, free fluid or inflammatory stranding. No hernia, mass or bulky lymphadenopathy. Disc and bony degenerative change present without acute finding. No acute vascular finding suspected. IMPRESSION: CT chest, abdomen and pelvis imaging, as detailed above, without acute or suspicious fin ding. Absence of IV contrast is limiting. Isodense masses and pyelonephritis of the kidneys cannot be exclu ded. Urinary bladder is contracted around a Song catheter limiting assessment. A 2.6 centimeter low-density mass in the subcapsular posterior dome of the liver is not otherwise phoebe racterized. No adequate comparison is available. A follow-up nonemergent liver ultrasound could be pe rformed.
[2017-11-12] MEDS ORDERED: ACETAMINOPHEN 500 MG TAB PO PRN (16:07)
[2017-11-12] MEDS ORDERED: HYDROCODONE/APAP 7.5/325 MG TAB PO PRN (16:07)
[2017-11-12] MEDS ORDERED: ONDANSETRON 4 MG/2 ML VIAL IV PRN (16:07)
--- NOTE | 2017-11-12 16:33 | P.HP ---
Certification for Inpatient Patient admitted to: Inpatient With expected LOS: >2 Midnights Patient will require the following post-hospital care: Other Practitioner: I am a practitioner with admitting privileges, knowledge of patient current condition, hospital course, and medical plan of care. Services: Services provided to patient in accordance with Admission requirements found in Title 42 Section 412.3 of the Code of Federal Regulations Patient History Date of Service: 11/12/17 Primary Care Provider: Dr. Anderson Reason for admission: Recurrent UTI History of Present Illness: 67-year-old female presented to the emergency room with recurrent UTI. She apparently was found to have a UTI on 11/07/2017. Urinalysis was done by [facility]. She was found to have E coli. The patient had been previously on Cipro and amoxicillin without any relief. The patient continue to have fever, chills and weakness. Urine culture identified E coli with multi resistance. The patient was sent to the ER for IV antibiotic therapy. Patient reports mild back pain. Some fatigue. Patient has a history of atrial fibrillation, diastolic CHF, COPD, degenerative disc and joint disease, chronic back pain, hypertension, GERD and anxiety. She is seen by pain management. In the ER patient was evaluated. Initial vital signs were stable. White count 13.6, lactic acid normal. Sodium 141, potassium 4.0, GFR greater than 90. BNP 663. CT scan shows no significant acute findings. She has a 2.6 cm liver mass. She reports that seen and evaluated in the past. Patient will be admitted. Central line was placed in emergency room. Patient to be started on meropenem. Allergies amitriptyline HCl [From Elavil] Allergy (Intermediate, Verified 12/18/16 04:46) Nausea/Vomiting ciprofloxacin [From Cipro] Allergy (Intermediate, Verified 06/18/17 17:27) Rash meperidine [From Demerol] Allergy (Verified 07/25/17 23:57) Itching/Hives/Rash morphine Allergy (Verified 03/21/17 22:38) Itching/Hives/Rash phenobarbital Allergy (Verified 12/18/16 04:46) Itching/Hives/Rash Home medications list reviewed: Yes Home Medications: Albuterol Sulfate [Ventolin Hfa] 2 puff PO Q4HP PRN 07/25/17 Budesonide/Formoterol Fumarate [Symbicort 160-4.5 Mcg Inhaler] 2 puff PO BID 06/09 Esomeprazole Magnesium 40 mg PO DAILY 07/25/17 Gabapentin 1 cap PO BID 07/25/17 Lisinopril 1 tab PO BID 07/25/17 Metoprolol Succinate 1 tab PO DAILY 07/25/17 Oxycodone HCl/Acetaminophen [Oxycodone-Acetaminophen 10-325] 1 tab PO Q4HP PRN 07/25/17 Sertraline HCl 3 tab PO DAILY 07/25/17 clonazePAM [Clonazepam] 1 tab PO BID 07/25/17 Cefuroxime Axetil [Cefuroxime] 500 mg PO BID #10 tab 07/27/17 Furosemide [Lasix] 40 mg PO DAILY #30 tablet 07/27/17 Lisinopril [Prinivil*] 40 mg PO DAILY tab 07/27/17 Potassium Chloride 20 meq PO DAILY #30 tablet.er 07/27/17 - Past Medical/Surgical History Diabetic: No -: HTN -: COPD -: CHF, diastolic dysfunction -: GERD -: Morbid obesity -: Anxiety -: DDD, DJD lumbar spine, chronic pain -: Melanoma removed from under breasts -: History of Liver tumor -: Chronic back pain-Pain management-Dr. Herron -: Depression with anxiety -: Left ovarian tumor -: Hysterectomy -: Hernia Repair Psychosocial/ Personal History: , Disabled, 5 children - Family History Father -: Heart disease, Hypertension, Diabetes, Cancer, Liver disease Mother -: Heart disease, Hypertension, Diabetes, Cancer Sister -: Heart disease, Hypertension, Diabetes Brother -: Hypertension - Social History Smoking Status: Never smoker Alcohol use: No CD- Drugs: No Caffeine use: Yes Place of Residence: Home Review of Systems General: Fever, Weakness, As per HPI Eyes: Unremarkable ENT: Unremarkable Respiratory: Unremarkable Cardiovascular: Unremarkable Gastrointestinal: Unremarkable Genitourinary: Dysuria, Urgency, As per HPI Musculoskeletal: Back Pain, As per HPI Integumentary: Unremarkable Neurological: As per HPI Lymphatics: Unremarkable Physical Examination - Physical Exam General: Alert, In no apparent distress, Oriented x3, Cooperative, Other ( Increased anxiety noted.) HEENT: Atraumatic, Normocephalic, PERRLA, Mucous membr. moist/pink Neck: Supple, No Thyromegaly Respiratory: Clear to auscultation bilaterally, Normal air movement Cardiovascular: Normal pulses, Regular rate/rhythm Gastrointestinal: Normal bowel sounds, Soft and benign, Non-distended, No tenderness, No masses, No rebound, No guarding, Other (Morbid obesity. Large pannus noted.) Musculoskeletal: No erythema, No tenderness, No warmth Integumentary: No erythema, No warmth, No cyanosis, Tenderness/swelling (Pain to the lumbar region) Neurological: Normal speech, Normal strength at 5/5 x4 extr, Normal tone, Normal affect - Studies Laboratory Data (last 24 hrs) 11/12/17 15:15: PT 11.9, INR 1.01, APTT 27.2 11/12/17 15:15: WBC 13.6 H, Hgb 12.9, Hct 40.6, Plt Count 267 11/12/17 15:15: Sodium 141, Potassium 4.0, BUN 14, Creatinine 0.60, Glucose 107 H, Magnesium 2.0, Total Bilirubin 0.2, AST 16, ALT 18, Alkaline Phosphatase 89, Lipase 54 L Assessment and Plan - Problems (Diagnosis) (1) Atrial fibrillation Current Visit: Yes Status: Chronic Plan: Patient has history of atrial fibrillation. Will start DVT prophylaxis. Will continue with aspirin. Patient not on chronic anti coagulation therapy likely because of multiple risks. Will review previous information. Qualifiers: Atrial fibrillation type: chronic Qualified Code(s): I48.2 - Chronic atrial fibrillation (2) Depression with anxiety Current Visit: Yes Status: Chronic Plan: Will continue with her medication. (3) UTI (urinary tract infection) Onset Date: 10/06/15 Current Visit: No Status: Acute Plan: Recurrent multi resistant UTI noted. Urine culture done on the shows E coli. Will recheck urine culture. Will obtain blood culture. Will start meropenem. Will also order PICC line as the patient will likely require IV antibiotic therapy. Patient does not desire to go to a skilled facility. Most likely patient will need IV antibiotic therapy as an outpatient through home health. Will have social services counselor arrange this. Will discuss case with her PCP. Qualifiers: Urinary tract infection type: acute cystitis Hematuria presence: without hematuria Qualified Code(s): N30.00 - Acute cystitis without hematuria (4) CHF (congestive heart failure) Onset Date: 04/23/14 Current Visit: No Status: Chronic Plan: Patient with diastolic dysfunction. Currently stable. Will continue with Lasix. Qualifiers: Qualified Code(s): I50.32 - Chronic diastolic (congestive) heart failure (5) COPD (chronic obstructive pulmonary disease) Onset Date: 06/20/15 Current Visit: No Status: Chronic Plan: Will continue with COPD medication. Will maintain sats above 90%. Will wean off oxygen. Qualifiers: COPD type: chronic bronchitis Chronic bronchitis type: unspecified Qualified Code(s): J42 - Unspecified chronic bronchitis (6) Chronic back pain Onset Date: 03/26/17 Current Visit: No Status: Chronic Plan: Will continue with pain medication. Patient with history of chronic back pain will continue with oral medication. No IV pain medication is recommended or indicated at this time. Qualifiers: Back pain location: back pain in unspecified location Back pain laterality : midline Qualified Code(s): M54.9 - Dorsalgia, unspecified; G89.29 - Other chronic pain; G89.29 - Other chronic pain (7) Hypertension Onset Date: 03/27/16 Current Visit: No Status: Chronic Plan: Will continue with her medication. Qualifiers: Hypertension type: essential hypertension (8) Morbid obesity Onset Date: 03/26/17 Current Visit: No Status: Chronic Plan: Will address lifestyle modification education. (9) Obstructive sleep apnea Current Visit: Yes Status: Suspected Plan: Suspect obstructive sleep apnea. Will check to see if the patient has CPAP machine (10) Liver mass Current Visit: Yes Status: Chronic Plan: She reports that this has been monitored as an outpatient. Recommendation to continue with GI evaluation as an outpatient. Discharge Plan: Home Plan to discharge in: 72 Hours - Advance Directives Does patient have a Living Will: No Does patient have a Durable POA for Healthcare: No - Code Status/Comfort Care Code Status Assessed: Yes Time Spent Managing Pts Care (In Minutes): 55
[2017-11-12] MEDS ORDERED: ALBUTEROL 2.5 MG/3 ML NEB SOL ONE (17:08)
[2017-11-12] MEDS ORDERED: IPRATROPIUM BROM 0.5MG/2.5ML ONE (17:08)
[2017-11-12 17:56] LABS: Urine Blood NEGATIVE (NEG); Urine Glucose NEGATIVE (NEG); Urine Protein NEGATIVE (NEG); Urine Specific Gravity 1.015 (1.005-1.030); Urine pH 6.5 (5.0-7.0)
[2017-11-12] MEDS: ENOXAPARIN 40 MG/0.4 ML SQ SCH (18:08)
[2017-11-12] MEDS: clonazePAM 1 MG TAB PO PRN (18:08)
[2017-11-12 18:28] VITALS: BMI 63.8
[2017-11-12] MEDS: OXYCODONE HCL 5 MG TAB PO PRN ×2 (18:32→22:57)
[2017-11-12] MEDS: ARFORMOTEROL TARTRATE 15 MCG/2 ML VIAL.NEB NEB SCH (20:17)
[2017-11-12] MEDS: Meropenem 1,000 MG in NA CHLORIDE 0.9% 100 ML IV SCH (20:38)
[2017-11-12] MEDS: GABAPENTIN 300 MG CAP PO SCH (20:38)
[2017-11-12] MEDS ORDERED: Meropenem 1000 MG/VIAL IV SCH (21:00)
[2017-11-12] MEDS ORDERED: SERTRALINE HCL 100 MG TAB PO SCH (21:00)
[2017-11-13] MEDS ORDERED: hydrOXYzine HCl 25 MG TAB PO ONE (01:17)
[2017-11-13] MEDS: OXYCODONE HCL 5 MG TAB PO PRN ×3 (06:04→17:02)
[2017-11-13 06:53] LABS: Potassium 4.3 mmol/L (3.5-5.1); Thyroid Stimulating Hormone 2.93 uIU/mL (0.36-3.74)
[2017-11-13 06:56] LABS: Absolute Lymphocytes (CBC) 2.3 K/uL (0.7-4.9); Absolute Monocytes 0.9 K/uL (0.1-1.3); Absolute Neutrophil 6.5 K/uL (1.8-8.0); Basophils % 0.6 % (0-1.3); Eosinophils % 2.9 % (0-4.4); Lymphocytes % 22.9 % (15.3-44.8); MCH 28.7 pg (27.0-35.0); MCV 89.2 fL (80-100); RBC Red Blood Cell Count 4.49 M/uL (3.86-4.86)
--- NOTE | 2017-11-13 07:23 | EKG ---
Test Date: 2017-11-12 Test Time: 13:32:41 Big Machine Consultant: MARIAELENA MEASUREMENT RESULTS: Intervals: Rate: 70 OH: 186 QRSD: 80 QT: 396 QTc: 427 Decker: P: 78 OH: 186 QRS: 15 T: 46 INTERPRETIVE STATEMENTS: Normal sinus rhythm Normal ECG Compared to ECG 07/25/2017 15:46:18 Myocardial infarct finding no longer present Electronically Signed On 11-13-17 07:22:18 CDT by Krystian Charles
[2017-11-13] MEDS: ARFORMOTEROL TARTRATE 15 MCG/2 ML VIAL.NEB NEB SCH ×2 (07:46→19:50)
[2017-11-13] MEDS: GABAPENTIN 300 MG CAP PO SCH (09:00)
[2017-11-13] MEDS ORDERED: hydrOXYzine HCl 25 MG TAB PO PRN (09:38)
--- NOTE | 2017-11-13 09:46 | P.PN ---
Subjective Date of Service: 11/13/17 Primary Care Provider: Dr. Anderson Chief Complaint: Recurrent UTI Subjective: Other (Patient anxious this morning.) Physical Examination - Vital Signs Temperature: 97.4 F Blood Pressure: 116/57 Pulse: 87 Respirations: 20 Pulse Ox (%): 91 - Physical Exam General: Alert, In no apparent distress, Oriented x3, Cooperative HEENT: Atraumatic Neck: Supple Respiratory: Clear to auscultation bilaterally, Normal air movement Cardiovascular: Normal pulses, Regular rate/rhythm Gastrointestinal: Normal bowel sounds, Soft and benign, Non-distended, No tenderness, No masses, No rebound, No guarding Musculoskeletal: No erythema, No tenderness, No warmth Integumentary: No tenderness/swelling, No erythema, No warmth, No cyanosis Neurological: Normal speech, Normal strength at 5/5 x4 extr, Normal tone, Abnormal affect (Increased anxiety) - Studies Laboratory Data (last 24 hrs) 11/12/17 15:15: PT 11.9, INR 1.01, APTT 27.2 11/12/17 15:15: WBC 13.6 H, Hgb 12.9, Hct 40.6, Plt Count 267 11/12/17 15:15: Sodium 141, Potassium 4.0, BUN 14, Creatinine 0.60, Glucose 107 H, Magnesium 2.0, Total Bilirubin 0.2, AST 16, ALT 18, Alkaline Phosphatase 89, Lipase 54 L Medications List Reviewed: Yes Assessment & Plan - Problems (Diagnosis) (1) Atrial fibrillation Onset Date: 11/13/17 Current Visit: Yes Status: Chronic Plan: Patient has history of atrial fibrillation. Continue with DVT prophylaxis. Will continue aspirin. Patient not on chronic anti coagulation therapy likely because of multiple risks. Will review previous information. Qualifiers: Atrial fibrillation type: chronic Qualified Code(s): I48.2 - Chronic atrial fibrillation (2) Depression with anxiety Onset Date: 11/13/17 Current Visit: Yes Status: Chronic Plan: Will continue with her medication. Patient takes antidepressant medication and benzodiazepine for anxiety. (3) UTI (urinary tract infection) Onset Date: 10/06/15 Current Visit: No Status: Acute Plan: Recurrent multi resistant UTI noted. Urine culture done on the shows E coli. Will recheck urine culture. Will obtain blood culture. Continue with meropenem. Will also order PICC line as the patient will likely require IV antibiotic therapy for at least 7 days. Spoke with case management. Insurance may not pay for IV antibiotic therapy at home. Options may only be long-term acute care facility placement or skilled placement. Will discuss with patient and family. Qualifiers: Urinary tract infection type: acute cystitis Hematuria presence: without hematuria Qualified Code(s): N30.00 - Acute cystitis without hematuria (4) CHF (congestive heart failure) Onset Date: 04/23/14 Current Visit: No Status: Chronic Plan: Patient with diastolic dysfunction. Currently stable. Will continue with Lasix. Will check chest x-ray today. Qualifiers: Qualified Code(s): I50.32 - Chronic diastolic (congestive) heart failure (5) COPD (chronic obstructive pulmonary disease) Onset Date: 06/20/15 Current Visit: No Status: Chronic Plan: Will continue with COPD medication. Will maintain sats above 90%. Will wean off oxygen. Patient with chronic steroids. Will restart prednisone. Qualifiers: COPD type: chronic bronchitis Chronic bronchitis type: unspecified Qualified Code(s): J42 - Unspecified chronic bronchitis (6) Chronic back pain Onset Date: 03/26/17 Current Visit: No Status: Chronic Plan: Will continue with pain medication. Patient with history of chronic back pain will continue with oral medication. No IV pain medication is recommended or indicated at this time. Qualifiers: Back pain location: back pain in unspecified location Back pain laterality : midline Qualified Code(s): M54.9 - Dorsalgia, unspecified; G89.29 - Other chronic pain; G89.29 - Other chronic pain (7) Hypertension Onset Date: 03/27/16 Current Visit: No Status: Chronic Plan: Will continue with her medication. Qualifiers: Hypertension type: essential hypertension (8) Morbid obesity Onset Date: 03/26/17 Current Visit: No Status: Chronic Plan: Will address lifestyle modification education. (9) Obstructive sleep apnea Onset Date: 11/13/17 Current Visit: Yes Status: Suspected Plan: Suspect obstructive sleep apnea. Will check to see if the patient has CPAP machine (10) Liver mass Onset Date: 11/13/17 Current Visit: Yes Status: Chronic Plan: She reports that this has been monitored as an outpatient. Recommendation to continue with GI evaluation as an outpatient. (11) Renal insufficiency Current Visit: Yes Status: Acute Plan: Mild renal insufficiency noted. Will start low-dose IV fluids. (12) Chronic use of steroids Current Visit: Yes Status: Chronic Plan: Patient appears to be taking chronic steroids. Will continue with her steroid medication. Will confirm. Discharge Plan: Other (Long-term acute care facility placement or skilled placement) Plan to discharge in: 24 Hours Time Spent Managing Pts Care (In Minutes): 55
[2017-11-13] MEDS: Meropenem 1,000 MG in NA CHLORIDE 0.9% 100 ML IV SCH ×2 (10:34→21:27)
[2017-11-13] MEDS: PANTOPRAZOLE 40MG TABLET PO SCH (10:35)
[2017-11-13] MEDS: AMLODIPINE 5 MG TAB PO SCH (10:35)
[2017-11-13] MEDS: ENOXAPARIN 40 MG/0.4 ML SQ SCH (10:35)
[2017-11-13] MEDS: LISINOPRIL 20 MG TAB PO SCH (10:35)
[2017-11-13] MEDS: ASPIRIN EC 81 MG TAB PO SCH (10:36)
[2017-11-13] MEDS: GABAPENTIN 400 MG CAP PO SCH ×2 (10:36→21:28)
[2017-11-13] MEDS: FUROSEMIDE 20 MG TABLET PO SCH (10:36)
[2017-11-13] MEDS: predniSONE 20 MG TAB PO SCH (10:36)
[2017-11-13] MEDS: METOPROLOL TAR 50 MG TAB PO SCH (10:36)
[2017-11-13] MEDS: NACHLORIDE 0.45% 1,000 ML IV SCH (10:37)
--- NOTE | 2017-11-13 11:12 | RAD REPORT ---
EXAM DESCRIPTION: RAD - Chest Single View - 11/12/2017 1:53 pm CLINICAL HISTORY: Cough and congestion COMPARISON: July 27, 2017 TECHNIQUE: AP portable chest image was obtained 1349 hours. FINDINGS: No peripheral mass or consolidation. Central vasculature and lung markings are prominent. Inspiratory effort is shallow. Heart size is upper normal and similar to comparison. Trachea is midli ne. No measurable pleural effusion and no pneumothorax. No gross bony abnormality seen. No acute aort ic findings suspected. IMPRESSION: 1. Central vasculature and lung markings are mildly prominent but not substantially diff erent from comparison. 2. Significant acute disease is doubtful. A minimal early failure or volume overload would be possibl e.
--- NOTE | 2017-11-13 11:58 | RAD REPORT ---
EXAM DESCRIPTION: Vikash Single View11/13/2017 11:34 am CLINICAL HISTORY: Shortness of breath COMPARISON: November 12, 2017 FINDINGS: The lungs appear clear of acute infiltrate. The heart is normal size IMPRESSION: No acute abnormalities displayed
[2017-11-13] MEDS: IPRATROPIUM BROM 0.5MG/2.5ML NEB PRN (13:44)
[2017-11-13] MEDS: ALBUTEROL 2.5 MG/3 ML NEB SOL NEB PRN (13:44)
[2017-11-13] MEDS: VANCOMYCIN 2 GM in NA CHLORIDE 0.9% 500 ML IVPB SCH (17:02)
--- NOTE | 2017-11-13 18:48 | CON ---
Date of Consultation: 11/13/2017 NEPHROLOGY CONSULTATION Reason For Consult: Acute renal insufficiency with recurrent urinary tract infection. History Of Present Illness: Ms. Velasquez is a 67-year-old female with past medical history signifi cant for history of recurrent urinary tract infection, presented to [facility] after she was treated for urinary tract infection on the , however, she continued to have fevers. She also alfaro d weakness. She was admitted for failure of outpatient antibiotic therapy. At this time, patient's daughter at bedside is reporting that the patient continues to have altered mental status and she fee ls fatigued and weak. Her oxygen level has been running low despite nasal oxygen. Past Medical History: Significant for history of hypertension, COPD, CHF with diastolic dysfunction, GERD, morbid obesity, chronic pain secondary to degenerative disk disease, history of liver tumor, d epression, anxiety, hysterectomy, and hernia repair. Social History: She is . She has 5 children. Lives at home. Family History: Significant for history of heart disease and hypertension in her father. Mother wit h diabetes and sister with diabetes. Social History: Lives at home. No history of smoking or alcohol use reported. Review of Systems: Positive for weakness, lethargy, shortness of breath. Denies any dysuria at this time, but has been having dysuria prior. All other review of systems are negative. Physical Examination: Vital Signs: At this time are showing temperature of 97.9, pulse rate of 97, respiratory rate 20, bl ood pressure 148/100. General: She is an obese female, in no acute distress, seems drowsy and lethargic. HEENT: Shows atraumatic head. Lungs: Auscultation of the lungs revealed diminished breath sounds overall. Heart: Auscultation of the heart revealed regular rate and rhythm. Abdomen: Obese and nontender. Extremities: Without any evidence of edema. Laboratory Data: At this time is showing sodium of 139, potassium of 4.6, chloride of 102, creatinin e worsened to 1 from 0.6, bicarb of 36. Urine was showing evidence of trace leukocyte esterase. Current Medications: Include amlodipine 5 mg a day, aspirin, clonazepam, Lasix 20 mg p.o. daily, dylon apentin, hydroxyzine, lisinopril 40 mg a day, meropenem every 12 hours, oxycodone p.r.n. for pain, Zo loft and tramadol. She is also on prednisone 20 mg a day. Imaging: She had a chest x-ray done today which shows no acute abnormalities were noted. She has a CT scan of her abdomen and pelvis that is pending at this time. Impression: 1.Recurrent urinary tract infections, currently with concern for sepsis. The patient remains on gina openem at this time. We will continue to monitor for now. 2.Altered mental status. The patient is on multiple medications for pain. We will need to minimize and monitor her mental status closely. 3.Depression with anxiety. Continue home dose of antidepressants. 4.Congestive heart failure, currently stable. Continue p.o. Lasix and avoid IV fluids at this time. 5.Chronic obstructive pulmonary disease. Resume all home medications. Continue nebulizer treatment s. May need steroids if continues to have worsening hypoxia. 6.Chronic back pain. Would be cautious with pain medications secondary to altered mental status. Plan: Overall, the patient is doing okay. Renal function remains stable. However will need to clos ginger monitor and consider getting a CT scan of her chest if still continues to have hypoxia and may need to be treated for COPD exacerbat ion as well. VICKY/LUIS MIGUEL Voice ID: [id number] Report ID: [id number]
[2017-11-13] MEDS ORDERED: NA CHLORIDE 0.9% 500 ML IV ONE (21:04)
[2017-11-13] MEDS: SERTRALINE HCL 100 MG TAB PO SCH (21:28)
[2017-11-14] MEDS: OXYCODONE HCL 5 MG TAB PO PRN ×5 (02:20→20:43)
[2017-11-14] MEDS: clonazePAM 1 MG TAB PO PRN ×2 (03:32→20:43)
[2017-11-14 05:36] LABS: Absolute Lymphocytes (CBC) 2.1 K/uL (0.7-4.9); Absolute Monocytes 1.2 K/uL (0.1-1.3); Absolute Neutrophil 9.4 K/uL (1.8-8.0); Basophils % 0.9 % (0-1.3); Eosinophils % 0.6 % (0-4.4); Hematocrit 38.6 % (36.0-45.0); Lymphocytes % 16.5 % (15.3-44.8); MCV 88.7 fL (80-100); MPV 7.6 fL (7.6-11.3); RBC Red Blood Cell Count 4.36 M/uL (3.86-4.86)
[2017-11-14 05:50] LABS: Magnesium 2.3 mg/dL (1.8-2.4); Potassium 4.8 mmol/L (3.5-5.1)
[2017-11-14] MEDS: NACHLORIDE 0.45% 1,000 ML IV SCH (06:30)
[2017-11-14] MEDS: ARFORMOTEROL TARTRATE 15 MCG/2 ML VIAL.NEB NEB SCH ×2 (07:42→19:52)
[2017-11-14] MEDS ORDERED: VANCOMYCIN 1 GM in NA CHLORIDE 0.9% 500 ML IVPB SCH (09:00)
--- NOTE | 2017-11-14 09:21 | RAD REPORT ---
EXAM DESCRIPTION: RAD - Chest Single View - 11/14/2017 4:49 am CLINICAL HISTORY: PICC line insertion COMPARISON: Chest Single View dated 11/13/2017; Chest Single View dated 11/12/2017; Chest Single View dated 07/27/2017; Chest Single View dated 07/25/2017 FINDINGS: Portable chest was obtained following placement of a right upper extremity PICC line. The catheter tip projects over the atriocaval junction.
--- NOTE | 2017-11-14 09:32 | P.PN ---
Subjective Date of Service: 11/14/17 Primary Care Provider: Dr. Anderson Chief Complaint: Recurrent UTI Subjective: Improving Physical Examination - Vital Signs Temperature: 97 F Blood Pressure: 138/57 Pulse: 77 Respirations: 16 Pulse Ox (%): 95 - Physical Exam General: Alert, In no apparent distress, Oriented x3, Cooperative HEENT: Atraumatic Neck: Supple Respiratory: Clear to auscultation bilaterally, Normal air movement Cardiovascular: Normal pulses, Regular rate/rhythm Gastrointestinal: Normal bowel sounds, Soft and benign, Non-distended, No tenderness, No masses, No rebound, No guarding Musculoskeletal: No erythema, No tenderness, No warmth Integumentary: No tenderness/swelling, No erythema, No warmth, No cyanosis Neurological: Normal speech, Normal strength at 5/5 x4 extr, Normal tone, Abnormal affect (Increased anxiety) - Studies Microbiology Data (last 24 hrs): 11/12/17 14:35 Catheterized Urine [place] Count - Final >100,000 CFU/ML. 11/12/17 14:35 Catheterized Urine - Final Escherichia Coli Medications List Reviewed: Yes Assessment & Plan - Problems (Diagnosis) (1) Atrial fibrillation Onset Date: 11/13/17 Current Visit: Yes Status: Chronic Plan: Patient has history of atrial fibrillation. Continue with DVT prophylaxis. Will continue aspirin. Patient not on chronic anti coagulation therapy likely because of multiple risks. Qualifiers: Atrial fibrillation type: chronic Qualified Code(s): I48.2 - Chronic atrial fibrillation (2) Depression with anxiety Onset Date: 11/13/17 Current Visit: Yes Status: Chronic Plan: Will continue with her medication. Patient takes antidepressant medication and benzodiazepine for anxiety. (3) UTI (urinary tract infection) Onset Date: 10/06/15 Current Visit: No Status: Acute Plan: Recurrent multi resistant UTI noted. Urine culture positive for E coli-ESBL. Patient on IV meropenem. Blood cultures positive for Gram positive cocci. This is likely a contaminant. Patient also on vancomycin. Await results of blood cultures to determine whether the patient will require 2 antibiotic therapies. Arrangements are being made so that she can get IV antibiotic therapy at home. This was discussed in detail with the patient and daughter present. Will discuss further with case management. Anticipate possible discharge tomorrow Qualifiers: Urinary tract infection type: acute cystitis Hematuria presence: without hematuria Qualified Code(s): N30.00 - Acute cystitis without hematuria (4) CHF (congestive heart failure) Onset Date: 04/23/14 Current Visit: No Status: Chronic Plan: Patient with diastolic dysfunction. Currently stable. Will hold Lasix today. Qualifiers: Qualified Code(s): I50.32 - Chronic diastolic (congestive) heart failure (5) COPD (chronic obstructive pulmonary disease) Onset Date: 06/20/15 Current Visit: No Status: Chronic Plan: Will continue with COPD medication. Will maintain sats above 90%. Will wean off oxygen. Patient with chronic steroids. Qualifiers: COPD type: chronic bronchitis Chronic bronchitis type: unspecified Qualified Code(s): J42 - Unspecified chronic bronchitis (6) Chronic back pain Onset Date: 03/26/17 Current Visit: No Status: Chronic Plan: Will continue with pain medication. Patient with history of chronic back pain will continue with oral medication. No IV pain medication is recommended or indicated at this time. Qualifiers: Back pain location: back pain in unspecified location Back pain laterality : midline Qualified Code(s): M54.9 - Dorsalgia, unspecified; G89.29 - Other chronic pain; G89.29 - Other chronic pain (7) Hypertension Onset Date: 03/27/16 Current Visit: No Status: Chronic Plan: Will continue with her medication. Qualifiers: Hypertension type: essential hypertension (8) Morbid obesity Onset Date: 03/26/17 Current Visit: No Status: Chronic Plan: Will address lifestyle modification education. (9) Obstructive sleep apnea Onset Date: 11/13/17 Current Visit: Yes Status: Suspected Plan: Suspect obstructive sleep apnea. Will check to see if the patient has CPAP machine (10) Liver mass Onset Date: 11/13/17 Current Visit: Yes Status: Chronic Plan: She reports that this has been monitored as an outpatient. Recommendation to continue with GI evaluation as an outpatient. (11) Renal insufficiency Current Visit: Yes Status: Acute Plan: Mild renal insufficiency noted. Will start low-dose IV fluids. (12) Chronic use of steroids Current Visit: Yes Status: Chronic Plan: Patient appears to be taking chronic steroids. Will continue with her steroid medication. Will confirm. (13) Bacteremia Current Visit: Yes Status: Acute Plan: Blood cultures positive. Likely contaminated. Await blood culture results positive for Gram positive cocci,urine culture positive for E coli-ESBL. Continue as above. Discharge Plan: Home Plan to discharge in: 24 Hours Time Spent Managing Pts Care (In Minutes): 55
[2017-11-14] MEDS: Meropenem 1,000 MG in NA CHLORIDE 0.9% 100 ML IV SCH ×2 (09:43→20:42)
[2017-11-14] MEDS: GABAPENTIN 400 MG CAP PO SCH ×2 (09:46→20:42)
[2017-11-14] MEDS: METOPROLOL TAR 50 MG TAB PO SCH (09:46)
[2017-11-14] MEDS: ASPIRIN EC 81 MG TAB PO SCH (09:47)
[2017-11-14] MEDS: AMLODIPINE 5 MG TAB PO SCH (09:47)
[2017-11-14] MEDS: PANTOPRAZOLE 40MG TABLET PO SCH (09:48)
[2017-11-14] MEDS: predniSONE 20 MG TAB PO SCH (09:48)
[2017-11-14] MEDS: ENOXAPARIN 40 MG/0.4 ML SQ SCH (09:48)
[2017-11-14] MEDS: LISINOPRIL 20 MG TAB PO SCH (09:48)
[2017-11-14] MEDS: VANCOMYCIN 2 GM in NA CHLORIDE 0.9% 500 ML IVPB SCH (09:49)
[2017-11-14] MEDS: SERTRALINE HCL 100 MG TAB PO SCH (20:43)
[2017-11-15] MEDS: OXYCODONE HCL 5 MG TAB PO PRN ×5 (01:33→21:06)
[2017-11-15] MEDS: NACHLORIDE 0.45% 1,000 ML IV SCH ×2 (04:06→21:11)
[2017-11-15 04:43] LABS: Absolute Lymphocytes (CBC) 2.3 K/uL (0.7-4.9); Absolute Monocytes 0.8 K/uL (0.1-1.3); Absolute Neutrophil 7.9 K/uL (1.8-8.0); Basophils % 0.2 % (0-1.3); Eosinophils % 1.6 % (0-4.4); Hematocrit 36.2 % (36.0-45.0); Lymphocytes % 20.2 % (15.3-44.8); MCH 28.6 pg (27.0-35.0); MCV 88.3 fL (80-100); MPV 7.8 fL (7.6-11.3); Monocytes % 6.9 % (3.3-12.3)
[2017-11-15 04:51] LABS: Magnesium 2.2 mg/dL (1.8-2.4)
[2017-11-15] MEDS: ARFORMOTEROL TARTRATE 15 MCG/2 ML VIAL.NEB NEB SCH ×2 (08:02→20:27)
[2017-11-15] MEDS: VANCOMYCIN 2 GM in NA CHLORIDE 0.9% 500 ML IVPB SCH (09:18)
[2017-11-15] MEDS: LISINOPRIL 20 MG TAB PO SCH (09:19)
[2017-11-15] MEDS: Meropenem 1,000 MG in NA CHLORIDE 0.9% 100 ML IV SCH ×2 (09:19→21:05)
[2017-11-15] MEDS: ENOXAPARIN 40 MG/0.4 ML SQ SCH (09:20)
[2017-11-15] MEDS: ASPIRIN EC 81 MG TAB PO SCH (09:20)
[2017-11-15] MEDS: predniSONE 20 MG TAB PO SCH (09:20)
[2017-11-15] MEDS: PANTOPRAZOLE 40MG TABLET PO SCH (09:20)
[2017-11-15] MEDS: AMLODIPINE 5 MG TAB PO SCH (09:20)
[2017-11-15] MEDS: GABAPENTIN 400 MG CAP PO SCH ×2 (09:20→21:06)
[2017-11-15] MEDS: METOPROLOL TAR 50 MG TAB PO SCH (09:20)
[2017-11-15] MEDS: FUROSEMIDE 20 MG TABLET PO SCH (09:23)
--- NOTE | 2017-11-15 10:28 | P.PN ---
Subjective Date of Service: 11/15/17 Primary Care Provider: Dr. Anderson Chief Complaint: Recurrent UTI Subjective: Doing well Physical Examination - Vital Signs Temperature: 97.1 F Blood Pressure: 140/61 Pulse: 67 Respirations: 22 Pulse Ox (%): 97 - Physical Exam General: Alert, In no apparent distress, Oriented x3, Cooperative HEENT: Atraumatic Neck: Supple Respiratory: Clear to auscultation bilaterally, Normal air movement Cardiovascular: Normal pulses, Regular rate/rhythm Gastrointestinal: Normal bowel sounds, Soft and benign, Non-distended, No tenderness, No masses, No rebound, No guarding Musculoskeletal: No erythema, No tenderness, No warmth Integumentary: No tenderness/swelling, No erythema, No warmth, No cyanosis Neurological: Normal speech, Normal strength at 5/5 x4 extr, Normal tone, Abnormal affect (Increase anxiety noted) - Studies Microbiology Data (last 24 hrs): 11/12/17 14:35 Catheterized Urine [place] Count - Final >100,000 CFU/ML. 11/12/17 14:35 Catheterized Urine - Final Escherichia Coli Medications List Reviewed: Yes Assessment & Plan - Problems (Diagnosis) (1) Atrial fibrillation Onset Date: 11/13/17 Current Visit: Yes Status: Chronic Plan: Patient has history of atrial fibrillation. Continue with DVT prophylaxis. Will continue aspirin. Patient not on chronic anti coagulation therapy likely because of multiple risks. Qualifiers: Atrial fibrillation type: chronic Qualified Code(s): I48.2 - Chronic atrial fibrillation (2) Depression with anxiety Onset Date: 11/13/17 Current Visit: Yes Status: Chronic Plan: Will continue with her medication. Patient takes antidepressant medication and benzodiazepine for anxiety. (3) UTI (urinary tract infection) Onset Date: 10/06/15 Current Visit: No Status: Acute Plan: Recurrent multi resistant UTI noted. Urine culture positive for E coli-ESBL. Patient on IV meropenem. Blood cultures positive for Gram positive cocci. This is likely a contaminant. Vancomycin was started yesterday. Await blood culture results as this will determine whether the patient will require 2 antibiotic therapies at discharge. If negative patient can possibly be discharged today with IV antibiotic arranged as an outpatient. Case discussed with case management. Qualifiers: Urinary tract infection type: acute cystitis Hematuria presence: without hematuria Qualified Code(s): N30.00 - Acute cystitis without hematuria (4) CHF (congestive heart failure) Onset Date: 04/23/14 Current Visit: No Status: Chronic Plan: Patient with diastolic dysfunction. Currently stable. Will hold Lasix today. Qualifiers: Qualified Code(s): I50.32 - Chronic diastolic (congestive) heart failure (5) COPD (chronic obstructive pulmonary disease) Onset Date: 06/20/15 Current Visit: No Status: Chronic Plan: Will continue with COPD medication. Will maintain sats above 90%. Will wean off oxygen. Patient with chronic steroids. Patient uses oxygen at home. Qualifiers: COPD type: chronic bronchitis Chronic bronchitis type: unspecified Qualified Code(s): J42 - Unspecified chronic bronchitis (6) Chronic back pain Onset Date: 03/26/17 Current Visit: No Status: Chronic Plan: Will continue with pain medication. Patient with history of chronic back pain will continue with oral medication. No IV pain medication is recommended or indicated at this time. Qualifiers: Back pain location: back pain in unspecified location Back pain laterality : midline Qualified Code(s): M54.9 - Dorsalgia, unspecified; G89.29 - Other chronic pain; G89.29 - Other chronic pain (7) Hypertension Onset Date: 03/27/16 Current Visit: No Status: Chronic Plan: Will continue with her medication. Qualifiers: Hypertension type: essential hypertension (8) Morbid obesity Onset Date: 03/26/17 Current Visit: No Status: Chronic Plan: Will address lifestyle modification education. (9) Obstructive sleep apnea Onset Date: 11/13/17 Current Visit: Yes Status: Suspected Plan: Suspect obstructive sleep apnea. Will check to see if the patient has CPAP machine (10) Liver mass Onset Date: 11/13/17 Current Visit: Yes Status: Chronic Plan: She reports that this has been monitored as an outpatient. Recommendation to continue with GI evaluation as an outpatient. (11) Renal insufficiency Current Visit: Yes Status: Acute Plan: Mild renal insufficiency noted. Will start low-dose IV fluids. (12) Chronic use of steroids Current Visit: Yes Status: Chronic Plan: Patient appears to be taking chronic steroids. Will continue with her steroid medication. Will confirm. (13) Bacteremia Current Visit: Yes Status: Acute Plan: Blood cultures positive. Likely contaminated. Await blood culture results positive for Gram positive cocci. Urine culture positive for E coli-ESBL. Await final results as this will determine what the patient will require at discharge. Discharge Plan: Home Plan to discharge in: 24 Hours Time Spent Managing Pts Care (In Minutes): 55
[2017-11-15] MEDS: IPRATROPIUM BROM 0.5MG/2.5ML NEB PRN (20:27)
[2017-11-15] MEDS: ALBUTEROL 2.5 MG/3 ML NEB SOL NEB PRN (20:27)
[2017-11-15] MEDS: clonazePAM 1 MG TAB PO PRN (21:06)
[2017-11-15] MEDS: SERTRALINE HCL 100 MG TAB PO SCH (21:06)
[2017-11-15] MEDS ORDERED: hydrOXYzine HCl 25 MG TAB PO PRN (23:27)
[2017-11-16] MEDS: OXYCODONE HCL 5 MG TAB PO PRN ×6 (01:55→22:31)
[2017-11-16] MEDS ORDERED: LACTULOSE 20 GM/30 ML UCUP PO PRN (06:58)
[2017-11-16] MEDS: VANCOMYCIN 2 GM in NA CHLORIDE 0.9% 500 ML IVPB SCH (08:18)
[2017-11-16] MEDS: Meropenem 1,000 MG in NA CHLORIDE 0.9% 100 ML IV SCH ×2 (08:18→16:32)
[2017-11-16] MEDS: ENOXAPARIN 40 MG/0.4 ML SQ SCH (08:19)
[2017-11-16] MEDS: AMLODIPINE 5 MG TAB PO SCH (08:19)
[2017-11-16] MEDS: GABAPENTIN 400 MG CAP PO SCH ×2 (08:19→20:50)
[2017-11-16] MEDS: LISINOPRIL 20 MG TAB PO SCH (08:19)
[2017-11-16] MEDS: DOCUSATE NA 100 MG CAP PO SCH (08:20)
[2017-11-16] MEDS: FUROSEMIDE 20 MG TABLET PO SCH (08:20)
[2017-11-16] MEDS: PANTOPRAZOLE 40MG TABLET PO SCH (08:20)
[2017-11-16] MEDS: predniSONE 20 MG TAB PO SCH (08:20)
[2017-11-16] MEDS: ASPIRIN EC 81 MG TAB PO SCH (08:20)
[2017-11-16] MEDS: METOPROLOL TAR 50 MG TAB PO SCH (08:20)
--- NOTE | 2017-11-16 08:59 | P.PN ---
Subjective Date of Service: 11/16/17 Primary Care Provider: Dr. Anderson Chief Complaint: Recurrent UTI Subjective: Improving Physical Examination - Vital Signs Temperature: 97.7 F Blood Pressure: 143/72 Pulse: 65 Respirations: 18 Pulse Ox (%): 97 - Physical Exam General: Alert, In no apparent distress, Oriented x3, Cooperative HEENT: Atraumatic Neck: Supple Respiratory: Clear to auscultation bilaterally, Normal air movement Cardiovascular: Normal pulses, Regular rate/rhythm Gastrointestinal: Normal bowel sounds, Soft and benign, Non-distended, No tenderness, No masses, No rebound, No guarding Musculoskeletal: No erythema, No tenderness, No warmth Integumentary: No tenderness/swelling, No erythema, No warmth, No cyanosis Neurological: Normal speech, Normal strength at 5/5 x4 extr, Normal tone, Abnormal affect (Anxious appearing) - Studies Microbiology Data (last 24 hrs): 11/12/17 15:27 Blood - Blood Aerobic Blood Culture - Final Staph Hominis 11/12/17 15:27 Blood - Blood Gram Stain - Final 11/12/17 15:27 Blood - Blood Anaerobic Blood Culture - Final Staph Hominis 11/12/17 15:27 Blood - Blood Gram Stain - Final 11/12/17 15:15 Blood - Blood Aerobic Blood Culture - Final Staph Hominis 11/12/17 15:15 Blood - Blood Gram Stain - Final 11/12/17 15:15 Blood - Blood Anaerobic Blood Culture - Final Staph Hominis 11/12/17 15:15 Blood - Blood Gram Stain - Final Medications List Reviewed: Yes Assessment & Plan - Problems (Diagnosis) (1) Atrial fibrillation Onset Date: 11/13/17 Current Visit: Yes Status: Chronic Plan: Patient has history of atrial fibrillation. Continue with DVT prophylaxis. Will continue aspirin. Patient not on chronic anti coagulation therapy likely because of multiple risks. Qualifiers: Atrial fibrillation type: chronic Qualified Code(s): I48.2 - Chronic atrial fibrillation (2) Depression with anxiety Onset Date: 11/13/17 Current Visit: Yes Status: Chronic Plan: Will continue with her medication. Patient takes antidepressant medication and benzodiazepine for anxiety. (3) UTI (urinary tract infection) Onset Date: 10/06/15 Current Visit: No Status: Acute Plan: Recurrent multi resistant UTI noted. Urine culture positive for E coli-ESBL. Patient on IV meropenem. Blood cultures positive for Staph hominis. Will discuss case with infectious disease. Will continue with IV meropenem. Will recheck urine culture today to along with repeat blood cultures. Will transition vancomycin to Augmentin if okay with Infectious disease. Will discuss treatment and duration. Qualifiers: Urinary tract infection type: acute cystitis Hematuria presence: without hematuria Qualified Code(s): N30.00 - Acute cystitis without hematuria (4) CHF (congestive heart failure) Onset Date: 04/23/14 Current Visit: No Status: Chronic Plan: Patient with diastolic dysfunction. Currently stable. Restart low-dose Lasix Qualifiers: Qualified Code(s): I50.32 - Chronic diastolic (congestive) heart failure (5) COPD (chronic obstructive pulmonary disease) Onset Date: 06/20/15 Current Visit: No Status: Chronic Plan: Will continue with COPD medication. Will maintain sats above 90%. Will wean off oxygen. Patient with chronic steroids. Patient uses oxygen at home. Qualifiers: COPD type: chronic bronchitis Chronic bronchitis type: unspecified Qualified Code(s): J42 - Unspecified chronic bronchitis (6) Chronic back pain Onset Date: 03/26/17 Current Visit: No Status: Chronic Plan: Will continue with pain medication. Patient with history of chronic back pain will continue with oral medication. No IV pain medication is recommended or indicated at this time. Qualifiers: Back pain location: back pain in unspecified location Back pain laterality : midline Qualified Code(s): M54.9 - Dorsalgia, unspecified; G89.29 - Other chronic pain; G89.29 - Other chronic pain (7) Hypertension Onset Date: 03/27/16 Current Visit: No Status: Chronic Plan: Will continue with her medication. Qualifiers: Hypertension type: essential hypertension (8) Morbid obesity Onset Date: 03/26/17 Current Visit: No Status: Chronic Plan: Will address lifestyle modification education. (9) Obstructive sleep apnea Onset Date: 11/13/17 Current Visit: Yes Status: Suspected Plan: Suspect obstructive sleep apnea. Will check to see if the patient has CPAP machine (10) Liver mass Onset Date: 11/13/17 Current Visit: Yes Status: Chronic Plan: She reports that this has been monitored as an outpatient. Recommendation to continue with GI evaluation as an outpatient. (11) Renal insufficiency Current Visit: Yes Status: Acute Plan: Mild renal insufficiency noted but improved. Will discontinue IV fluids. (12) Chronic use of steroids Current Visit: Yes Status: Chronic Plan: Patient appears to be taking chronic steroids. Will continue with her steroid medication. Will confirm. (13) Bacteremia Current Visit: Yes Status: Acute Plan: Blood cultures positive for Staph hominis. Will transition from vancomycin to Augmentin. Will repeat blood cultures. Patient also with urine culture positive for E coli-ESBL. Patient on meropenem for that. Will consult infectious disease. Will discuss treatment and induration of antibiotics. Discharge Plan: Home Plan to discharge in: 72 Hours Time Spent Managing Pts Care (In Minutes): 55
[2017-11-16] MEDS ORDERED: AMOX/K CLAV 500 MG TAB PO SCH (09:00)
[2017-11-16] MEDS: ARFORMOTEROL TARTRATE 15 MCG/2 ML VIAL.NEB NEB SCH ×2 (09:44→20:39)
[2017-11-16] MEDS: clonazePAM 1 MG TAB PO PRN ×2 (11:52→22:34)
[2017-11-16] MEDS: SERTRALINE HCL 100 MG TAB PO SCH (20:51)
[2017-11-17] MEDS: Meropenem 1,000 MG in NA CHLORIDE 0.9% 100 ML IV SCH ×3 (01:46→18:09)
[2017-11-17] MEDS: OXYCODONE HCL 5 MG TAB PO PRN ×5 (02:33→22:17)
[2017-11-17] MEDS: ARFORMOTEROL TARTRATE 15 MCG/2 ML VIAL.NEB NEB SCH ×2 (07:30→19:40)
[2017-11-17] MEDS: FUROSEMIDE 20 MG TABLET PO SCH (09:00)
[2017-11-17] MEDS ORDERED: VANCOMYCIN 1 GM in NA CHLORIDE 0.9% 500 ML IVPB SCH (09:00)
[2017-11-17] MEDS: DOCUSATE NA 100 MG CAP PO SCH (09:13)
[2017-11-17] MEDS: METOPROLOL TAR 50 MG TAB PO SCH (09:13)
[2017-11-17] MEDS: LISINOPRIL 20 MG TAB PO SCH (09:14)
[2017-11-17] MEDS: clonazePAM 1 MG TAB PO PRN ×2 (09:14→18:59)
[2017-11-17] MEDS: predniSONE 20 MG TAB PO SCH (09:14)
[2017-11-17] MEDS: AMLODIPINE 5 MG TAB PO SCH (09:14)
[2017-11-17] MEDS: ASPIRIN EC 81 MG TAB PO SCH (09:14)
[2017-11-17] MEDS: GABAPENTIN 400 MG CAP PO SCH ×2 (09:14→22:04)
[2017-11-17] MEDS: PANTOPRAZOLE 40MG TABLET PO SCH (09:15)
[2017-11-17] MEDS: VANCOMYCIN 2 GM in NA CHLORIDE 0.9% 500 ML IVPB SCH (09:16)
[2017-11-17] MEDS: ENOXAPARIN 40 MG/0.4 ML SQ SCH (09:17)
--- NOTE | 2017-11-17 09:18 | P.PN ---
Subjective Date of Service: 11/17/17 Primary Care Provider: Dr. Anderson Chief Complaint: Recurrent UTI Subjective: Doing well Physical Examination - Vital Signs Temperature: 97.8 F Blood Pressure: 148/76 Pulse: 75 Respirations: 18 Pulse Ox (%): 98 - Physical Exam General: Alert, In no apparent distress, Cooperative, Other (Increased anxiety) HEENT: Atraumatic Neck: Supple Respiratory: Clear to auscultation bilaterally, Normal air movement Cardiovascular: Normal pulses, Regular rate/rhythm Gastrointestinal: Normal bowel sounds, Soft and benign, Non-distended, No tenderness, No masses, No rebound, No guarding Musculoskeletal: No erythema, No tenderness, No warmth Integumentary: No tenderness/swelling, No erythema, No warmth, No cyanosis Neurological: Normal speech, Normal strength at 5/5 x4 extr, Normal tone, Abnormal affect (Increase anxiety) - Studies Microbiology Data (last 24 hrs): 11/12/17 15:27 Blood - Blood Aerobic Blood Culture - Final Staph Hominis 11/12/17 15:27 Blood - Blood Gram Stain - Final 11/12/17 15:27 Blood - Blood Anaerobic Blood Culture - Final Staph Hominis 11/12/17 15:27 Blood - Blood Gram Stain - Final 11/12/17 15:15 Blood - Blood Aerobic Blood Culture - Final Staph Hominis 11/12/17 15:15 Blood - Blood Gram Stain - Final 11/12/17 15:15 Blood - Blood Anaerobic Blood Culture - Final Staph Hominis 11/12/17 15:15 Blood - Blood Gram Stain - Final Medications List Reviewed: Yes Assessment & Plan - Problems (Diagnosis) (1) Atrial fibrillation Onset Date: 11/13/17 Current Visit: Yes Status: Chronic Plan: Patient has history of atrial fibrillation. Continue with DVT prophylaxis. Will continue aspirin. Patient not on chronic anti coagulation therapy likely because of multiple risks. Qualifiers: Atrial fibrillation type: chronic Qualified Code(s): I48.2 - Chronic atrial fibrillation (2) Depression with anxiety Onset Date: 11/13/17 Current Visit: Yes Status: Chronic Plan: Will continue with her medication. Patient takes antidepressant medication and benzodiazepine for anxiety. (3) UTI (urinary tract infection) Onset Date: 10/06/15 Current Visit: No Status: Acute Plan: Recurrent multi resistant UTI noted. Urine culture positive for E coli-ESBL. Patient on IV meropenem. Blood cultures positive for Staph hominis. Will continue with IV meropenem. Patient currently on meropenem 1 g IV 3 times a day. Will consider changing to twice daily. Patient also on vancomycin to cover for blood cultures that were positive for Staph hominis. Likely cause of bacteremia likely from central line. Repeat blood culture and urine culture at this time. Patient will likely need IV antibiotic therapy for a total 14 days. This includes vancomycin 2 g currently daily and meropenem 1 g IV currently 3 times a day possibly changed over to twice daily. Will need to discuss options with patient and patient family. Patient may likely require skilled placement versus home considering the complexity of her infection. Will discuss with infectious disease. Will check echocardiogram to rule out endocarditis. Qualifiers: Urinary tract infection type: acute cystitis Hematuria presence: without hematuria Qualified Code(s): N30.00 - Acute cystitis without hematuria (4) CHF (congestive heart failure) Onset Date: 04/23/14 Current Visit: No Status: Chronic Plan: Patient with diastolic dysfunction. Currently stable. Continue with low-dose Lasix Qualifiers: Qualified Code(s): I50.32 - Chronic diastolic (congestive) heart failure (5) COPD (chronic obstructive pulmonary disease) Onset Date: 06/20/15 Current Visit: No Status: Chronic Plan: Will continue with COPD medication. Will maintain sats above 90%. Will wean off oxygen. Patient with chronic steroids. Patient uses oxygen at home. Qualifiers: COPD type: chronic bronchitis Chronic bronchitis type: unspecified Qualified Code(s): J42 - Unspecified chronic bronchitis (6) Chronic back pain Onset Date: 03/26/17 Current Visit: No Status: Chronic Plan: Will continue with pain medication. Patient with history of chronic back pain will continue with oral medication. No IV pain medication is recommended or indicated at this time. Qualifiers: Back pain location: back pain in unspecified location Back pain laterality : midline Qualified Code(s): M54.9 - Dorsalgia, unspecified; G89.29 - Other chronic pain; G89.29 - Other chronic pain (7) Hypertension Onset Date: 03/27/16 Current Visit: No Status: Chronic Plan: Will continue with her medication. Qualifiers: Hypertension type: essential hypertension (8) Morbid obesity Onset Date: 03/26/17 Current Visit: No Status: Chronic Plan: Will address lifestyle modification education. (9) Obstructive sleep apnea Onset Date: 11/13/17 Current Visit: Yes Status: Suspected Plan: Suspect obstructive sleep apnea. Will check to see if the patient has CPAP machine (10) Liver mass Onset Date: 11/13/17 Current Visit: Yes Status: Chronic Plan: She reports that this has been monitored as an outpatient. Recommendation to continue with GI evaluation as an outpatient. (11) Renal insufficiency Current Visit: Yes Status: Acute Plan: Mild renal insufficiency noted but improved. Will monitor closely. (12) Chronic use of steroids Current Visit: Yes Status: Chronic Plan: Patient appears to be taking chronic steroids. Will continue with her steroid medication. (13) Bacteremia Current Visit: Yes Status: Acute Plan: Blood cultures positive for Staph hominis. This is likely from central line. Will check echocardiogram to rule out endocarditis. Patient also with urine culture positive for E coli-ESBL. Currently on meropenem and vancomycin. Will consult infectious disease for further recommendation. Patient will likely need IV antibiotic therapy for total 14 days. Blood culture positive likely from central line. Will discuss with patient and family concerning complexity of infections. Will recommend skilled placement. Patient previously did not want to go to a skilled placement facility. This may be her only option as the patient will require 2 antibiotic therapies. Await further recommendations from infectious disease. Discharge Plan: Other (Home versus skilled placement) Plan to discharge in: 24 Hours Time Spent Managing Pts Care (In Minutes): 55
[2017-11-17] MEDS: TRAMADOL HCL 50 MG TAB PO PRN (11:31)
[2017-11-17] MEDS: SERTRALINE HCL 100 MG TAB PO SCH (22:04)
--- NOTE | 2017-11-17 23:46 | CON ---
History Of Present Illness: This is a 67-year-old female consulted for urinary tract infection secon harshal to Escherichia coli and Staph hominis identified in blood culture. The patient came in with rec urrent urinary tract infection to emergency room. She was found to have E. coli growing in her urine with ESBL, sensitive to meropenem and aminoglycosides. The patient is currently being treated with meropenem and vancomycin. The patient denies any headache, nausea, vomiting, chest pain, abdominal p ain, constipation, or diarrhea. Past Medical History: Includes hypertension, COPD, congestive heart failure, gastroesophageal reflux disease, morbid obesity, anxiety, degenerative joint disease of lumbar spine, melanoma, history of l iver tumor, back pain, depression, hysterectomy, hernia repair. Social History: Nonsmoker, nondrinker. Family History: Hypertension, diabetes, and liver disease. Medication: Includes vancomycin and meropenem. Allergies: AMITRIPTYLINE, CIPRO, AND PHENOBARBITAL. Review of Systems: A 10-point review was performed. Physical Examination: General: This is a 67-year-old female, lying in bed, not in any acute cardiopulmonary distress. Vital Signs: Temperature 98, pulse 65, respirations 20, blood pressure 173/74. HEENT: Unremarkable. Neck: Supple. Lungs: Clear to auscultation. Heart: S1, S2. Regular. Abdomen: Soft, nontender. Bowel sounds positive. Extremities: 3+ edema. Laboratory Data: WBC 11.2, hemoglobin 11.7, platelets are 230. Chemistry shows sodium 134, potassiu m 5, chloride 98, bicarb 35, BUN 23, creatinine 0.7, glucose is 104. Micro data shows Staph hominis in blood culture; sensitive to sulfa drugs, tetracycline, and cefazolin, vancomycin, Levaquin. Urine infection is secondary to Escherichia coli ESBL. Assessment And Plan: Staphylococcus hominis bacteremia and Escherichia coli extended spectrum beta-l actamase urinary tract infection in a 67-year-old female with multiple medical problems and severe mo rbid obesity, poor nutritional status. We will recommend to continue IV antibiotics at this time. C onsider long-term acute care. We will follow the patient closely. Thank you Dr. Aguilera for consult. NF/MODL Voice ID: [id number] Report ID: [id number]
[2017-11-18] MEDS: Meropenem 1,000 MG in NA CHLORIDE 0.9% 100 ML IV SCH ×3 (01:11→16:51)
[2017-11-18 05:08] VITALS: O2SAT 92
[2017-11-18] MEDS: TRAMADOL HCL 50 MG TAB PO PRN (05:49)
[2017-11-18 05:50] LABS: Absolute Lymphocytes (CBC) 2.2 K/uL (0.7-4.9); Absolute Monocytes 0.9 K/uL (0.1-1.3); Absolute Neutrophil 7.6 K/uL (1.8-8.0); Basophils % 0.5 % (0-1.3); Eosinophils % 1.7 % (0-4.4); Hematocrit 37.4 % (36.0-45.0); Lymphocytes % 20.3 % (15.3-44.8); MCH 28.5 pg (27.0-35.0); MCV 87.5 fL (80-100); MPV 7.5 fL (7.6-11.3); RBC Red Blood Cell Count 4.28 M/uL (3.86-4.86)
[2017-11-18 05:55] LABS: BUN Blood Urea Nitrogen 18 mg/dL (7-18); Bicarbonate 39 mmol/L (21-32); Glucose Level 148 mg/dL (74-106); Magnesium 2.1 mg/dL (1.8-2.4); Potassium 4.1 mmol/L (3.5-5.1); Sodium Level 140 mmol/L (136-145)
[2017-11-18] MEDS: ARFORMOTEROL TARTRATE 15 MCG/2 ML VIAL.NEB NEB SCH (08:00)
[2017-11-18] MEDS: ENOXAPARIN 40 MG/0.4 ML SQ SCH (09:24)
[2017-11-18] MEDS: OXYCODONE HCL 5 MG TAB PO PRN ×3 (09:25→17:33)
[2017-11-18] MEDS: METOPROLOL TAR 50 MG TAB PO SCH (09:25)
[2017-11-18] MEDS: DOCUSATE NA 100 MG CAP PO SCH (09:25)
[2017-11-18] MEDS: PANTOPRAZOLE 40MG TABLET PO SCH (09:25)
[2017-11-18] MEDS: LISINOPRIL 20 MG TAB PO SCH (09:26)
[2017-11-18] MEDS: ASPIRIN EC 81 MG TAB PO SCH (09:26)
[2017-11-18] MEDS: GABAPENTIN 400 MG CAP PO SCH (09:26)
[2017-11-18] MEDS: FUROSEMIDE 20 MG TABLET PO SCH (09:27)
[2017-11-18] MEDS: AMLODIPINE 5 MG TAB PO SCH (09:27)
[2017-11-18] MEDS: predniSONE 20 MG TAB PO SCH (09:27)
[2017-11-18] MEDS: VANCOMYCIN 2 GM in NA CHLORIDE 0.9% 500 ML IVPB SCH (09:28)
--- NOTE | 2017-11-18 11:40 | ECHO ---
HEIGHT: 5 ft 3 in WEIGHT: 360 lb 0 oz DATE OF STUDY: 11/18/[address]: 2-DIMENSIONAL: YES M.MODE: YES DOPPLER: YES COLOR FLOW: YES TDS: YES PORTABLE: NO DEFINITY: NO BUBBLE STUDY: NO DIAGNOSIS: BACTEREMIA CARDIAC HISTORY: CATHERIZATION: NO SURGERY: NO PROSTHETIC VALVE: NO PACEMAKER: NO MEASUREMENTS (cm) DIASTOLIC (NORMALS) SYSTOLIC (NORMALS) IVSd 1.2 (0.6-1.2) LA Diam 4.4 (1.9-4.0) LVEF 60-69% LVIDd 4.7 (3.5-5.7) LVIDs 2.8 (2.0-3.5) %FS 12% LVPWd 1.2 (0.6-1.2) Ao Diam 2.9 (2.0-3.7) 2 DIMENSIONAL ASSESSMENT: RIGHT ATRIUM: NORMAL LEFT ATRIUM: DILATED RIGHT VENTRICLE: NORMAL LEFT VENTRICLE: NORMAL TRICUSPID VALVE: NORMAL MITRAL VALVE: NORMAL PULMONIC VALVE: NORMAL AORTIC VALVE: NORMAL PERICARDIAL EFFUSION: NONE AORTIC ROOT: NORMAL LEFT VENTRICULAR WALL MOTION: NORMAL. DOPPLER/COLOR FLOW: NORMAL. COMMENTS: NORMAL LEFT VENTRICULAR EJECTION FRACTION. DILATED LEFT ATRIUM. NORMAL CARDIAC DOPPLER. TECHNOLOGIST: BRYANNA LEON
[2017-11-18] MEDS: clonazePAM 1 MG TAB PO PRN (12:33)
--- NOTE | 2017-11-18 15:40 | P.DS ---
Admission Date: 11/12/17 Discharge Date: 11/18/17 Primary Care Provider: Dr. Anderson Disposition: DC HOME/HOME HEALTH CARE Discharge Condition: GOOD Reason for Admission: Recurrent UTI - Problems (1) Atrial fibrillation Onset Date: 11/13/17 Current Visit: Yes Status: Chronic Qualifiers: Atrial fibrillation type: chronic Qualified Code(s): I48.2 - Chronic atrial fibrillation (2) Depression with anxiety Onset Date: 11/13/17 Current Visit: Yes Status: Chronic (3) UTI (urinary tract infection) Onset Date: 10/06/15 Current Visit: No Status: Acute Qualifiers: Urinary tract infection type: acute cystitis Hematuria presence: without hematuria Qualified Code(s): N30.00 - Acute cystitis without hematuria (4) CHF (congestive heart failure) Onset Date: 04/23/14 Current Visit: No Status: Chronic Qualifiers: Qualified Code(s): I50.32 - Chronic diastolic (congestive) heart failure (5) COPD (chronic obstructive pulmonary disease) Onset Date: 06/20/15 Current Visit: No Status: Chronic Qualifiers: COPD type: chronic bronchitis Chronic bronchitis type: unspecified Qualified Code(s): J42 - Unspecified chronic bronchitis (6) Chronic back pain Onset Date: 03/26/17 Current Visit: No Status: Chronic Qualifiers: Back pain location: back pain in unspecified location Back pain laterality : midline Qualified Code(s): M54.9 - Dorsalgia, unspecified; G89.29 - Other chronic pain; G89.29 - Other chronic pain (7) Hypertension Onset Date: 03/27/16 Current Visit: No Status: Chronic Qualifiers: Hypertension type: essential hypertension (8) Morbid obesity Onset Date: 03/26/17 Current Visit: No Status: Chronic (9) Obstructive sleep apnea Onset Date: 11/13/17 Current Visit: Yes Status: Suspected (10) Liver mass Onset Date: 11/13/17 Current Visit: Yes Status: Chronic (11) Renal insufficiency Current Visit: Yes Status: Acute (12) Chronic use of steroids Current Visit: Yes Status: Chronic (13) Bacteremia Current Visit: Yes Status: Acute Brief History of Present Illness: 67-year-old female presented to the emergency room with recurrent UTI. She apparently was found to have a UTI on 11/07/2017. Urinalysis was done by home health. She was found to have E coli. The patient had been previously on Cipro and amoxicillin without any relief. The patient continue to have fever, chills and weakness. Urine culture identified E coli with multi resistance. The patient was sent to the ER for IV antibiotic therapy. Patient reports mild back pain. Some fatigue. Patient has a history of atrial fibrillation, diastolic CHF, COPD, degenerative disc and joint disease, chronic back pain, hypertension, GERD and anxiety. She is seen by pain management. In the ER patient was evaluated. Initial vital signs were stable. White count 13.6, lactic acid normal. Sodium 141, potassium 4.0, GFR greater than 90. BNP 663. CT scan shows no significant acute findings. She has a 2.6 cm liver mass. She reports that seen and evaluated in the past. Patient will be admitted. Central line was placed in emergency room. Patient to be started on meropenem. Hospital Course: Patient presented with recurrent multi resistant UTI. Patient found to have E coli-ESBL and Blood culture positive for Staph Hominis. This required IV antibiotic therapy. Patient seen evaluated by infectious disease. Patient responded to antibiotic therapy well. Arrangements have been made so that she can continue with IV antibiotic therapy at Skilled facility. Patient has PICC line in place. At discharge she will continue with IV meropenem 1 g IV three times a day and Vancomycin 2 gm IV daily for total of 14 days. Pharmacy will monitor and adjust appropriately along with Skilled facility physician. This can be followed up by her PCP. Recommendation to recheck urine culture and blood culture after that time to monitor resolution. If negative PICC line can be removed. Patient will need to continue with UTI prevention. Patient has COPD. She is oxygen and steroid dependent. At discharge she will continue with oxygen to maintain sats above 90%. She will also continue with prednisone 20 mg daily. At discharge she will continue with Brovana 1 puff twice daily for 5 days for COPD maintenance. Patient may continue with Pro air 2 puffs 3 times a day as needed for shortness of breath. Recommendation is for the patient follow up with pulmonology as an outpatient to further monitor and address. Patient has hypertension. At discharge she will continue with Norvasc 5 mg daily, lisinopril 40 mg 1 pill daily, and metoprolol 50 mg 1 pill daily. Recommendation is to maintain blood pressures less 150/80. Further adjustment can be done by her PCP. 5. Patient has history of atrial fibrillation not on chronic anti coagulation therapy. Patient will continue with aspirin 81 mg daily. Patient has history of diastolic CHF. Patient will continue with a 1500 cc per day fluid restriction and low-salt diet. Patient will also continue with Lasix 40 mg 1 pill once daily. Medications may need to be adjusted by her PCP. Patient is to monitor her weight daily. If her weight increases by more than 5 lb she is to contact her PCP for further recommendation. Patient has depression with anxiety. Patient will continue with Zoloft 200 mg daily and clonazepam 1 mg 1 pill twice daily as needed for anxiety. Further adjustment can be done by her PCP. Patient has GERD. Patient will continue with Nexium 40 mg 1 pill once daily. Patient with chronic pain. Patient will continue with Neurontin 400 mg 1 pill twice daily. Patient also takes oxycodone 10/325 mg 1 pill 4 times a day as needed for pain. Patient will need to follow up with her pain management physician to continue her care and monitor this closely. Patient likely with obstructive sleep apnea. Recommendation is to continue with her CPAP if this is already in place or if not patient will need a follow up with pulmonology as an outpatient to further assess. Patient may require sleep study as an outpatient to further treat. Lifestyle modification education will be provided. Fall precautions will need to be enforced. Vital Signs/Physical Exam: Temp Pulse Resp BP Pulse Ox 97.0 F 63 20 116/57 L 100 11/18/17 12:00 11/18/17 12:00 11/18/17 12:00 11/18/17 12:00 11/18/17 12:00 Laboratory Data at Discharge: WBC 10.9 K/uL (4.3-10.9) 11/18/17 05:30 Hgb 12.2 g/dL (12.0-15.0) 11/18/17 05:30 Hct 37.4 % (36.0-45.0) 11/18/17 05:30 Plt Count 249 K/uL (152-406) 11/18/17 05:30 PT 11.9 SECONDS (9.5-12.5) 11/12/17 15:15 INR 1.01 11/12/17 15:15 APTT 27.2 SECONDS (24.3-36.9) 11/12/17 15:15 Sodium 140 mmol/L (136-145) 11/18/17 05:30 Potassium 4.1 mmol/L (3.5-5.1) 11/18/17 05:30 BUN 18 mg/dL (7-18) 11/18/17 05:30 Creatinine 0.50 mg/dL (0.55-1.3) L 11/18/17 05:30 Glucose 148 mg/dL (74-106) H 11/18/17 05:30 Magnesium 2.1 mg/dL (1.8-2.4) 11/18/17 05:30 Total Bilirubin 0.2 mg/dL (0.2-1.0) 11/12/17 15:15 AST 16 U/L (15-37) 11/12/17 15:15 ALT 18 U/L (12-78) 11/12/17 15:15 Alkaline Phosphatase 89 U/L (45-117) 11/12/17 15:15 Lipase 54 U/L (73-393) L 11/12/17 15:15 Home Medications: Albuterol Inhaler [Ventolin Inhaler*] 2 puff IH QID 11/12/17 Amlodipine [Norvasc*] 5 mg PO DAILY 11/12/17 Aspirin 81 mg PO DAILY 11/12/17 Esomeprazole Mag Trihydrate [Nexium] 1 cap PO DAILY 11/12/17 Furosemide [Lasix*] 40 mg PO DAILY 11/12/17 Gabapentin [Neurontin*] 400 mg PO BID 11/12/17 Metoprolol Tartrate [Lopressor*] 50 mg PO DAILY 11/12/17 Nystatin 100,000 unit TD QID 11/12/17 Oxycodone HCl/Acetaminophen [Endocet 10-325 mg Tablet] 1 each PO Q4H PRN Prednisone [Deltasone] 20 mg PO DAILY 11/12/17 Promethazine HCl [Phenergan] 25 mg PO Q6HR 11/12/17 Sertraline [Zoloft*] 2 tab PO DAILY 11/12/17 clonazePAM [Clonazepam] 1 mg PO BID 11/12/17 hydrOXYzine pamoate [Hydroxyzine Pamoate] 1 tab PO BID PRN 11/13/17 Arformoterol Tartrate [Brovana] 15 mcg NEB BIDRESP #60 vial.neb 11/15/17 Lisinopril 40 mg PO DAILY #30 tablet 11/15/17 New Medications: Arformoterol Tartrate [Brovana] 15 mcg NEB BIDRESP #60 vial.neb Lisinopril 40 mg PO DAILY #30 tablet Patient Discharge Instructions: 1. Patient will need a follow up with a PCP in 1 week to follow up this hospitalization. 2. Patient presented with recurrent multi resistant UTI. Patient found to have E coli-ESBL and Blood culture positive for Staph Hominis. This required IV antibiotic therapy. Arrangements have been made so that she can continue with IV antibiotic therapy at Skilled facility. Patient seen by Infectious disease. Patient has PICC line in place. At discharge she will continue with IV meropenem 1 g IV three times a day and Vancomycin 2 gm IV daily for total of 14 days. Pharmacy will monitor and adjust appropriately along with [facility] physician. This can be followed up by her PCP. Recommendation to recheck urine culture and blood culture after that time to monitor resolution. If negative PICC line can be removed. Patient will need to continue with UTI prevention. 3. Patient has COPD. She is oxygen and steroid dependent. At discharge she will continue with oxygen to maintain sats above 90%. She will also continue with prednisone 20 mg daily. At discharge she will continue with Brovana 1 puff twice daily for 5 days for COPD maintenance. Patient may continue with Pro air 2 puffs 3 times a day as needed for shortness of breath. Recommendation is for the patient follow up with pulmonology as an outpatient to further monitor and address. 4. Patient has hypertension. At discharge she will continue with Norvasc 5 mg daily, lisinopril 40 mg 1 pill daily, and metoprolol 50 mg 1 pill daily. Recommendation is to maintain blood pressures less 150/80. Further adjustment can be done by her PCP. 5. Patient has history of atrial fibrillation not on chronic anti coagulation therapy. Patient will continue with aspirin 81 mg daily. 6. Patient has history of diastolic CHF. Patient will continue with a 1500 cc per day fluid restriction and low-salt diet. Patient will also continue with Lasix 40 mg 1 pill once daily. Medications may need to be adjusted by her PCP. Patient is to monitor her weight daily. If her weight increases by more than 5 lb she is to contact her PCP for further recommendation. 7. Patient has depression with anxiety. Patient will continue with Zoloft 200 mg daily and clonazepam 1 mg 1 pill twice daily as needed for anxiety. Further adjustment can be done by her PCP. 8. Patient has GERD. Patient will continue with Nexium 40 mg 1 pill once daily. 9. Patient with chronic pain. Patient will continue with Neurontin 400 mg 1 pill twice daily. Patient also takes oxycodone 10/325 mg 1 pill 4 times a day as needed for pain. Patient will need to follow up with her pain management physician to continue her care and monitor this closely. 10. Patient likely with obstructive sleep apnea. Recommendation is to continue with her CPAP if this is already in place or if not patient will need a follow up with pulmonology as an outpatient to further assess. Patient may require sleep study as an outpatient to further treat. 11. Lifestyle modification education will be provided. Fall precautions will need to be enforced. Diet: AHA Activity: Fall precautions Time spent managing pt's care (in minutes): 55
[2017-11-18 18:27] VITALS: BP 140/61; TEMP 97.4
--- NOTE | 2017-11-19 08:28 | PN ---
Subjective: The patient lying in bed. Denies any headache, nausea, vomiting, chest pain, abdominal pain, constipation, or diarrhea. Objective: Vital Signs: Reviewed. Lungs: Basal crackles. Heart: S1, S2, regular. Abdomen: Soft, nontender. Bowel sounds positive. Extremity: Trace edema. Laboratory Data: Reviewed. Assessment And Plan: Urinary tract infection secondary to ESBL. Continue IV antibiotics and support thang care. We will follow the patient as needed. ARIELA/MODL Voice ID: [id number] Report ID: [id number]
== END 2017-11-18 18:00 | DRG 690 ==
LOC: ER 12:09 → ERHOLD 15:34 → 4TH 17:09
PROVIDERS: ADMIT Family Medicine; ATTEND Family Medicine
PROC: 06HM33Z Insertion of Infusion Device into Right Femoral Vein, Percutaneous Approach (ICD-10-PCS; 2017-11-12)
PROC: 02HV33Z Insertion of Infusion Device into Superior Vena Cava, Percutaneous Approach (ICD-10-PCS; principal; 2017-11-14)
DX: N30.00 Acute cystitis without hematuria (principal); I50.32 Chronic diastolic (congestive) heart failure; R78.81 Bacteremia; R53.1 Weakness; E66.01 Morbid (severe) obesity due to excess calories; I48.2 Chronic atrial fibrillation; F41.8 Other specified anxiety disorders; I11.0 Hypertensive heart disease with heart failure; J44.9 Chronic obstructive pulmonary disease, unspecified; G89.29 Other chronic pain; M54.9 Dorsalgia, unspecified; G47.33 Obstructive sleep apnea (adult) (pediatric); R16.0 Hepatomegaly, not elsewhere classified; N28.9 Disorder of kidney and ureter, unspecified; Z79.52 Long term (current) use of systemic steroids; B96.20 Unspecified Escherichia coli [E. coli] as the cause of diseases classified elsewhere; Z16.12 Extended spectrum beta lactamase (ESBL) resistance; K21.9 Gastro-esophageal reflux disease without esophagitis; B95.7 Other staphylococcus as the cause of diseases classified elsewhere; Z99.81 Dependence on supplemental oxygen; Z79.82 Long term (current) use of aspirin
CPT/HCPCS: 36415; 51702; 71045; 71250; 74176; 80048; 80076; 80202; 81003; 82550; 82553; 82962; 83605; 83690; 83735; 83880; 84145; 84443; 84484; 85025; 85610; 85730; 87040; 87077; 87086; 87088; 87186; 87205; 93005; 93306; 94640; 96361; 96365; 96375; 97163; 99285; J1650; J2185; J2405; J3010; J7030; J7512; J7605

== ENCOUNTER 2017-12-10 14:08 | Observation (INO) | payer OTHER ==
[2017-12-10] MEDS ORDERED: LEVALBUTEROL 1.25 MG/3 ML NEB ONE (15:02)
[2017-12-10 15:05] LABS: Absolute Lymphocytes (CBC) 1.5 K/uL (0.7-4.9); Absolute Monocytes 1.1 K/uL (0.1-1.3); Absolute Neutrophil 5.5 K/uL (1.8-8.0); Basophils % 0.7 % (0-1.3); Eosinophils % 10.5 % (0-4.4); Hematocrit 34.5 % (36.0-45.0); Lymphocytes % 16.4 % (15.3-44.8); MCH 28.7 pg (27.0-35.0); MCV 87.6 fL (80-100); MPV 7.1 fL (7.6-11.3); Monocytes % 12.1 % (3.3-12.3); RBC Red Blood Cell Count 3.93 M/uL (3.86-4.86)
[2017-12-10 15:16] LABS: Potassium 3.5 mmol/L (3.5-5.1); Protime INR 1.17
[2017-12-10 15:50] LABS: Urine Amorphous Sediment 1+ /HPF (NONE SEEN); Urine Bacteria <20 /HPF (<20); Urine Culture Reflex Order NOT NEEDED
[2017-12-10 15:50] LABS: Urine Blood TRACE (NEG); Urine Glucose NEGATIVE (NEG); Urine Protein NEGATIVE (NEG)
--- NOTE | 2017-12-10 15:57 | RAD REPORT ---
EXAM DESCRIPTION: CT - Head Brain Wo Cont - 12/10/2017 3:49 pm CLINICAL HISTORY: Fall, head injury COMPARISON: CT study December 01 TECHNIQUE: Axial 5 mm thick images of the head were obtained without IV contrast. All CT scans are performed using dose optimization technique as appropriate and may include automated exposure control or mA/KV adjustment according to patient size. FINDINGS: No intracranial hemorrhage, mass, edema or shift of mid-line structures. No acute infarcti on changes seen. Mild atrophy and chronic ischemic changes are present matching the prior short inter teressa study. Ventricles are normal. Mastoid air cells and visualized portions of the paranasal sinuses are clear. No acute bony findings. IMPRESSION: No acute intracranial finding. Mild atrophy and chronic ischemic pattern similar to December 01.
--- NOTE | 2017-12-10 16:03 | RAD REPORT ---
EXAM DESCRIPTION: CT - Chest Abdomen Pelvis W Cont - 12/10/2017 3:49 pm CLINICAL HISTORY: Fall, chest and abdomen pain COMPARISON: CT imaging March 2016 TECHNIQUE: Following dynamic enhancement using 100 milliliters nonionic IV contrast, axial imaging o f the chest, abdomen and pelvis was performed. Biphasic technique was utilized through the abdomen. No oral contrast was administered. All CT scans are performed using dose optimization technique as appropriate and may include automated exposure control or mA/KV adjustment according to patient size. FINDINGS: Minimal scarring or atelectasis changes in the left base. No pulmonary contusion or acute lung parenchymal process. No pleural effusion, pleural thickening or pneumothorax. No significant aor tic or pulmonary arterial tree finding. Mediastinal and hilar regions show no mass or abnormal lympha denopathy. No chest wall mass or axillary lymphadenopathy. No displaced rib fractures. Thoracic spine degenerative changes are present. No clearly pathologic bone process seen. The liver, spleen and pancreas show no suspicious findings. Liver shows a mild fatty infiltration pat tern. Gallbladder is distended. Wall thickening and pericholecystic fluid are not seen. Gallstones ca n be occult. No biliary tree dilatation. Symmetric renal function is seen with no mass or hydronephro sis. No adrenal abnormalities. Urinary bladder is fully contracted limiting assessment. Uterus is abs ent. Ovaries are absent or atrophic. No gastric dilatation or gastric wall thickening. No dilated small bowel loops. No appendicitis findi ngs. Tortuous sigmoid colon is decompressed. There is subtle stranding in the adjacent fat. This was not seen on the comparison study. Trauma etiology is not suspected. A minimal colitis would be possib le if there are matching clinical findings. No other acute GI finding. No acute or destructive bony process. Degenerative changes are present. No significant vascular findings. IMPRESSION: CT chest imaging shows no pulmonary contusion, pneumothorax or acute CT chest finding. Trace amount of stranding is present in the fatty tissues adjacent to a decompressed sigmoid colon. F indings are subtle and not suspected to be trauma related. Minimal colitis would be possible but woul d need a supporting clinical presentation. No associated mass. No free air, free fluid or other emergent traumatic injury.
--- NOTE | 2017-12-10 16:20 | EDPHYS ---
Physician Documentation [facility] Name: Amy Velasquez Age: 67 yrs Sex: Female : 1950 Arrival Date: 12/10/2017 Time: 14:17 Bed 23 Private MD: ED Physician Francis Mcintyre HPI: 12/10 14:33 This 67 yrs old Female presents to ER via EMS with complaints of Fall Injury. rn 14:33 Details of fall: The patient fell from an upright position. Onset: The symptoms/episode rn began/occurred 3 day(s) ago. Associated injuries: The patient sustained injury to the head, injury to the chest, injury to the abdomen. Severity of symptoms: At their worst the symptoms were moderate, in the emergency department the symptoms are unchanged. The patient has experienced similar episodes in the past. Reports fall 3 days ago, from standing, hit head/chest/abdomen, feels like cracked some ribs, + painful breathing and sob, also reports mild abd pain and diarrhea, non-bloody. . Historical: - Allergies: 14:26 Amitriptyline; aj1 14:26 Cipro; aj1 14:26 Morphine (rash, Itching); aj1 14:26 Phenobarbital; aj1 - Home Meds: 14:26 amlodipine 5 mg tab 1 tab once daily [Active]; aspirin 81 mg Oral chew 1 tab once daily aj1 [Active]; clonazepam 1 mg Oral tab 1 tab once daily [Active]; furosemide 20 mg Oral tab 1 tab once daily [Active]; gabapentin 400 mg Oral cap 1 cap 3 times per day [Active]; lisinopril 40 mg Oral tab 1 tab twice a day [Active]; metoprolol tartrate 50 mg Oral tab 1 tab once daily [Active]; Nexium 40 mg Oral cpDR 1 cap once daily [Active]; nystatin 100,000 unit/gram Topical crea 3 times per day [Active]; oxycodone-acetaminophen 10-325 mg Oral tab 1 tab every 6 hours for Pain [Active]; prednisone 20 mg Oral tab 1 tab 2 times per day [Active]; sertraline 50 mg Oral tab 3 tabs once daily [Active]; Ventolin Rotahaler/Rotacaps Inhl four times a day [Active]; - PMHx: 14:26 ADD/ADHD; Anxiety; Asthma; Atrial Fib; CANCER, SKIN; CHF; COPD; Degenerative disc aj1 disease; Hernia; Hypertension; - Immunization history:: Flu vaccine is up to date. - Social history:: Smoking status: Patient/guardian denies using tobacco. - Ebola Screening: : Patient denies travel to an Ebola-affected area in the 21 days before illness onset. - Family history:: not pertinent. - Hospitalizations: : No recent hospitalization is reported. ROS: 14:33 Constitutional: Negative for fever, chills, and weight loss, Eyes: Negative for injury, rn pain, redness, and discharge, Neck: Negative for injury, pain, and swelling, Cardiovascular: Negative for palpitations Respiratory: + sob Abdomen/GI: + abd pain and diarrhea Back: Negative for injury and pain, MS/Extremity: Negative for deformity, Skin: Negative for injury, rash, and discoloration, Neuro: Negative for headache, numbness, tingling, and seizure. Exam: 14:33 Constitutional: Morbidly obese female who appears somnolent Head/Face: Normocephalic, rn atraumatic. Eyes: Pupils equal round and reactive to light, extra-ocular motions intact. Lids and lashes normal. Conjunctiva and sclera are non-icteric and not injected. Cornea within normal limits. Periorbital areas with no swelling, redness, or edema. ENT: dry MM, no stridor Neck: Trachea midline, no thyromegaly or masses palpated, and no cervical lymphadenopathy. Supple, full range of motion without nuchal rigidity, or vertebral point tenderness. No Meningismus. Cardiovascular: Regular rate and rhythm with a normal S1 and S2. No gallops, murmurs, or rubs. Respiratory: + mild tachypnea and speaking 4-5 word sentences, diminished breath sounds at bases with mild wheezing noted bilaterally Abdomen/GI: soft, mild mid and upper tenderness without rebound, + ecchymosis lower abd quadrants (presumably from lovenox shots) MS/ Extremity: Pulses equal, no cyanosis. Neuro: Somnolent but awakens to voice and stimulation, moves all 4 extremities oriented x 3. Vital Signs: 14:26 BP 117 / 61; Pulse 92; Resp 24; Temp 98.9(O); Pulse Ox 94% on 3 lpm NC; Weight 167.83 aj1 kg (R); Height 5 ft. 3 in. (160.02 cm) (R); Pain 8/10; 15:16 BP 122 / 62; Pulse 90; Resp 24; Pulse Ox 97% on Nebulizer Mask; aj1 16:10 BP 114 / 75; Pulse 95; Resp 24; Pulse Ox 97% on 2 lpm NC; aj1 17:30 BP 127 / 65; Pulse 92; Resp 24; Pulse Ox 97% on 2 lpm NC; aj1 14:26 Body Mass Index 65.54 (167.83 kg, 160.02 cm) [facility] MDM: 14:17 Patient medically screened. rn 16:17 Differential diagnosis: abrasion, closed head injury, contusion, fracture, sprain, rn strain. Data reviewed: vital signs, nurses notes, lab test result(s), EKG, radiologic studies, CT scan, and as a result, I will admit patient. Counseling: I had a detailed discussion with the patient and/or guardian regarding: the historical points, exam findings, and any diagnostic results supporting the discharge/admit diagnosis, lab results, radiology results, the need for further work-up and treatment in the hospital. Response to treatment: the patient's symptoms have mildly improved after treatment, and as a result, I will admit patient. Admission orders: after a detailed discussion of the patient's condition and case, the admit orders are written by me. ED course: Pt with mild improvement, + dehydration and weakness, + mild colitis on CT, with recent abx for urosepsis, possible Cdiff, will admit for hydration and further assessment, no acute traumatic findings. Message left for Dr. Rausch regarding admission \T\ 1618.. 12/10 14:26 Order name: CBC with Diff; Complete Time: 15:28 12/10 14:26 Order name: Basic Metabolic Panel; Complete Time: 15:12/10 14:26 Order name: Protime (+inr); Complete Time: 15:28 12/10 14:26 Order name: Ptt, Activated; Complete Time: 15:28 12/10 14:26 Order name: Urine Culture rn 12/10 14:26 Order name: Urine Microscopic Only; Complete Time: 16:06 12/10 14:26 Order name: IV Start; Complete Time: 15:12/10 14:26 Order name: Urine Dipstick-Ancillary (obtain specimen); Complete Time: 15:10 rn 12/10 14:26 Order name: CT Head Brain wo Cont; Complete Time: 16:06 rn 12/10 14:26 Order name: CT Chest, Abdomen, Pelvis - W/Contrast; Complete Time: 16:06 rn 12/10 14:33 Order name: N-Terminal Pro-brain Natriuretic Peptide 12/10 15:31 Order name: Urine Dipstick--Ancillary (enter results); Complete Time: 16:06 12/10 16:08 Order name: CDIFF rn Administered Medications: 15:10 Drug: Xopenex 1.25 mg Route: Inhalation; aj1 Disposition: 12/10/17 16:19 Hospitalization ordered by Evita Rausch for Observation. Preliminary diagnosis are Dehydration, Colitis, Chest and abdominal wall contusions. - Bed requested for Telemetry/MedSurg (observation). - Status is Observation. sv - Condition is Stable. - Problem is an ongoing problem. - Symptoms are unchanged. UTI on Admission? No Signatures: Dispatcher [employer] EDMS Jazmin Seaman RN RN aj1 Elva Mclaughlin RN RN sv Woody, Diana, RN RN dw Nieto, Roman, MD MD rn Corrections: (The following items were deleted from the chart) 14:39 14:33 Constitutional: Morbidly obese female who appears somnolent Head/Face: rn Normocephalic, atraumatic. Eyes: Pupils equal round and reactive to light, extra-ocular motions intact. Lids and lashes normal. Conjunctiva and sclera are non-icteric and not injected. Cornea within normal limits. Periorbital areas with no swelling, redness, or edema. Neck: Trachea midline, no thyromegaly or masses palpated, and no cervical lymphadenopathy. Supple, full range of motion without nuchal rigidity, or vertebral point tenderness. No Meningismus. Cardiovascular: Regular rate and rhythm with a normal S1 and S2. No gallops, murmurs, or rubs. Normal PMI, no JVD. No pulse deficits. Respiratory: Lungs have equal breath sounds bilaterally, clear to auscultation and percussion. No rales, rhonchi or wheezes noted. No increased work of breathing, no retractions or nasal flaring. Abdomen/GI: Soft, non-tender, with normal bowel sounds. No distension or tympany. No guarding or rebound. No evidence of tenderness throughout. rn 17: 16:19 Hospitalization Ordered by Evita Rausch MD for Observation. Preliminary dw diagnosis is Dehydration; Colitis; Chest and abdominal wall contusions. Bed requested for Telemetry/MedSurg (observation). Status is Observation. Condition is Stable. Problem is an ongoing problem. Symptoms are unchanged. UTI on Admission? No. rn 18:11 17:08 12/10/2017 16:19 Hospitalization Ordered by Evita Rausch MD for Observation. sv Preliminary diagnosis is Dehydration; Colitis; Chest and abdominal wall contusions. Bed requested for Telemetry/MedSurg (observation). Status is Observation. Condition is Stable. Problem is an ongoing problem. Symptoms are unchanged. UTI on Admission? No. dw
--- NOTE | 2017-12-10 16:20 | ER ---
Nurse's Notes [facility] Name: Amy Velasquez Age: 67 yrs Sex: Female : 1950 Arrival Date: 12/10/2017 Time: 14:17 Bed 23 Private MD: Diagnosis: Dehydration;Colitis;Chest and abdominal wall contusions Presentation: 12/10 14:18 Presenting complaint: Patient states: She was discharged from [facility] last ajSaturday. On Saturday she fell, but did not want to go back to the hospital. Since then she has been having right rib pain, that has gotten worse, and it is making her feel more short of breath than usual. Patient states that she has also been having diarrhea, which she has been taking Imodium for, which has helped. Reports that she is having much less diarrhea now. Transition of care: patient was not received from another setting of care. Onset of symptoms was December 06, 2017. Risk Assessment: Do you want to hurt yourself or someone else? Patient reports no desire to harm self or others. Initial Sepsis Screen: Does the patient meet any 2 criteria? RR > 20 per min. HR > 90 bpm. Does the patient have a suspected source of infection? Yes: Other: diarrhea. Care prior to arrival: None. 14:18 Method Of Arrival: EMS: [facility] aj1 14:18 Acuity: BHARTI 3 aj1 Triage Assessment: 14:26 General: Appears in no apparent distress. uncomfortable, Behavior is calm, cooperative, aj1 appropriate for age. Pain: Complains of pain in right lateral anterior chest Pain does not radiate. Historical: - Allergies: 14:26 Amitriptyline; aj1 14:26 Cipro; aj1 14:26 Morphine (rash, Itching); aj1 14:26 Phenobarbital; aj1 - Home Meds: 14:26 amlodipine 5 mg tab 1 tab once daily [Active]; aspirin 81 mg Oral chew 1 tab once daily aj1 [Active]; clonazepam 1 mg Oral tab 1 tab once daily [Active]; furosemide 20 mg Oral tab 1 tab once daily [Active]; gabapentin 400 mg Oral cap 1 cap 3 times per day [Active]; lisinopril 40 mg Oral tab 1 tab twice a day [Active]; metoprolol tartrate 50 mg Oral tab 1 tab once daily [Active]; Nexium 40 mg Oral cpDR 1 cap once daily [Active]; nystatin 100,000 unit/gram Topical crea 3 times per day [Active]; oxycodone-acetaminophen 10-325 mg Oral tab 1 tab every 6 hours for Pain [Active]; prednisone 20 mg Oral tab 1 tab 2 times per day [Active]; sertraline 50 mg Oral tab 3 tabs once daily [Active]; Ventolin Rotahaler/Rotacaps Inhl four times a day [Active]; - PMHx: 14:26 ADD/ADHD; Anxiety; Asthma; Atrial Fib; CANCER, SKIN; CHF; COPD; Degenerative disc aj1 disease; Hernia; Hypertension; - Immunization history:: Flu vaccine is up to date. - Social history:: Smoking status: Patient/guardian denies using tobacco. - Ebola Screening: : Patient denies travel to an Ebola-affected area in the 21 days before illness onset. - Family history:: not pertinent. - Hospitalizations: : No recent hospitalization is reported. Screenin:28 Abuse screen: Denies threats or abuse. Denies injuries from another. Nutritional aj1 screening: No deficits noted. Tuberculosis screening: No symptoms or risk factors identified. 17:27 Fall Risk Fall in past 12 months (25 points). Secondary diagnosis (15 points) impaired aj1 mobility, IV access (20 points). Ambulatory Aid- None/Bed Rest/Nurse Assist (0 pts). Gait- Normal/Bed Rest/Wheelchair (0 pts) Mental Status- Oriented to own ability (0 pts). Total Omer Fall Scale indicates High Risk Score (45 or more points). As available patient and family educated on Fall Prevention Program and Strategies. Assessment: 14:28 General: Appears in no apparent distress. uncomfortable, Behavior is calm, cooperative, aj1 appropriate for age. Pain: Complains of pain in right lateral anterior chest Pain does not radiate. Pain currently is 8 out of 10 on a pain scale. Quality of pain is described as aching, Aggravated by deep breathing, activity. Neuro: Level of Consciousness is awake, alert, obeys commands, Oriented to person, place, time, situation, Moves all extremities. Full function Speech is normal, Facial symmetry appears normal. Cardiovascular: Patient's skin is warm and dry. Respiratory: Reports shortness of breath on exertion Airway is patent Respiratory effort is even, unlabored, Respiratory pattern is regular, symmetrical, Breath sounds are diminished bilaterally. GI: Reports diarrhea, that has improved with the use of Imodium. : No signs and/or symptoms were reported regarding the genitourinary system. EENT: No signs and/or symptoms were reported regarding the EENT system. Derm: No signs and/or symptoms reported regarding the dermatologic system. Skin is pink, warm \T\ dry. normal. Musculoskeletal: Range of motion: intact in all extremities. 15:16 Reassessment: Patient appears in no apparent distress at this time. No changes from [facility] previously documented assessment. Patient and/or family updated on plan of care and expected duration. Pain level reassessed. Patient is alert, oriented x 3, equal unlabored respirations, skin warm/dry/pink. 15:40 Reassessment: Patient transported to [place] via stretcher. aj 16:10 Reassessment: Patient states that her eyes have been burning since she went to [place]. [facility] Notified Dr. Mcintyre of patient complaint. 16:15 Reassessment: Patient and/or family updated on plan of care and expected duration. Pain aj1 level reassessed. General: Appears in no apparent distress. uncomfortable, Behavior is calm, cooperative. Neuro: Level of Consciousness is awake, alert, obeys commands, Speech is normal. Cardiovascular: Patient's skin is warm and dry. Respiratory: Airway is patent Respiratory effort is even, unlabored, Respiratory pattern is regular, symmetrical. Derm: Skin is pink, warm \T\ dry. normal, Bruising that is dark purple, on right lower quadrant and left lower quadrant. Musculoskeletal: Range of motion: intact in all extremities. 17:20 Reassessment: Spoke with Joya, Proposal Development Manager on 2nd floor. States that the [facility] receiving nurse is unavailable to take report at this time as she is giving medications. Reports that receiving nurse will call back. 17:27 Reassessment: Patient appears in no apparent distress at this time. No changes from [facility] previously documented assessment. Patient and/or family updated on plan of care and expected duration. Pain level reassessed. Patient is alert, oriented x 3, equal unlabored respirations, skin warm/dry/pink. 17:45 Reassessment: Reports given to SHAD Blanca on 2nd floor. [facility] Vital Signs: 14:26 BP 117 / 61; Pulse 92; Resp 24; Temp 98.9(O); Pulse Ox 94% on 3 lpm NC; Weight 167.83 aj1 kg (R); Height 5 ft. 3 in. (160.02 cm) (R); Pain 8/10; 15:16 BP 122 / 62; Pulse 90; Resp 24; Pulse Ox 97% on Nebulizer Mask; aj1 16:10 BP 114 / 75; Pulse 95; Resp 24; Pulse Ox 97% on 2 lpm NC; aj1 17:30 BP 127 / 65; Pulse 92; Resp 24; Pulse Ox 97% on 2 lpm NC; aj1 14:26 Body Mass Index 65.54 (167.83 kg, 160.02 cm) aj1 ED Course: 14:17 Patient arrived in ED. rn 14:17 Jazmin Seaman, RN is Primary Nurse. aj1 14:17 Francis Mcintyre MD is Attending Physician. rn 14:21 Triage completed. aj1 14:26 Arm band placed on. aj1 14:28 Patient has correct armband on for positive identification. Bed in low position. Call aj1 light in reach. Side rails up X2. 14:28 No provider procedures requiring assistance completed. aj1 14:50 Inserted saline lock: 24 gauge in left antecubital area, using aseptic technique. Blood ss collected. 15:13 Straight cath inserted, using sterile technique, Returned clear yellow urine. Patient aj1 tolerated well. 15:50 CT Head Brain wo Cont In Process Unspecified. EDMS 15:50 CT Chest, Abdomen, Pelvis - W/Contrast In Process Unspecified. EDMS 16:18 Evita Rausch MD is Hospitalizing Provider. rn 16:57 bariatric bed order from [facility], confirmation number [id number]. bd 17:28 Patient admitted, IV remains in place. aj1 Administered Medications: 15:10 Drug: Xopenex 1.25 mg Route: Inhalation; aj1 Outcome: 16:19 Decision to Hospitalize by Provider. rn 17:57 Admitted to Med/surg accompanied by tech, via stretcher, with chart. aj1 17:57 Condition: stable 17:57 Discharge instructions given to patient, Instructed on the need for admit, Demonstrated understanding of instructions. 18:11 Patient left the ED. sv Signatures: Dispatcher [employer] EDMS Delisa Ontiveros Jazmin, RN RN aj1 Elva Mclaughlin, RN RN sv Francis Mcintyre MD MD rn Regina Louis, RN RN ss
--- NOTE | 2017-12-10 17:04 | P.HP ---
Certification for Inpatient Patient admitted to: Observation With expected LOS: <2 Midnights Patient will require the following post-hospital care: None Practitioner: I am a practitioner with admitting privileges, knowledge of patient current condition, hospital course, and medical plan of care. Services: Services provided to patient in accordance with Admission requirements found in Title 42 Section 412.3 of the Code of Federal Regulations Patient History Date of Service: 12/10/17 Reason for admission: Colitis History of Present Illness: 67 y/o F with pmhx of COPD, Afib, CHF, HTN, Anxiety and Asthma who presented to the ER with Complains of Diarrhea, Fever and Chills x 4 days. Progressively getting Worse since 4 days. Diarrhea is NB and Watery in consistency. Recently admitted to the hospital for UTI and sent to SNF for IV abx for ecoli for 14days. Pt also had a fall x 2 at the house. Fever is subjective and Chills are intermittent. No Nausea or vomitting noted. Pt also complains of having generalized weakness since past 6 to 7 days. No other symptoms noted. Allergies amitriptyline HCl [From Elavil] Allergy (Intermediate, Verified 12/18/16 04:46) Nausea/Vomiting ciprofloxacin [From Cipro] Allergy (Intermediate, Verified 06/18/17 17:27) Rash phenobarbital Allergy (Verified 12/18/16 04:46) Itching/Hives/Rash Home Medications: Albuterol Inhaler [Ventolin Inhaler*] 2 puff IH QID 11/12/17 Amlodipine [Norvasc*] 5 mg PO DAILY 11/12/17 Aspirin 81 mg PO DAILY 11/12/17 Esomeprazole Mag Trihydrate [Nexium] 1 cap PO DAILY 11/12/17 Furosemide [Lasix*] 40 mg PO DAILY 11/12/17 Gabapentin [Neurontin*] 400 mg PO BID 11/12/17 Metoprolol Tartrate [Lopressor*] 50 mg PO DAILY 11/12/17 Nystatin 100,000 unit TD QID 11/12/17 Oxycodone HCl/Acetaminophen [Endocet 10-325 mg Tablet] 1 each PO Q4H PRN Prednisone [Deltasone] 20 mg PO DAILY 11/12/17 Promethazine HCl [Phenergan] 25 mg PO Q6HR 11/12/17 Sertraline [Zoloft*] 2 tab PO DAILY 11/12/17 clonazePAM [Clonazepam] 1 mg PO BID 11/12/17 hydrOXYzine pamoate [Hydroxyzine Pamoate] 1 tab PO BID PRN 11/13/17 Arformoterol Tartrate [Brovana] 15 mcg NEB BIDRESP #60 vial.neb 11/15/17 Lisinopril 40 mg PO DAILY #30 tablet 11/15/17 - Past Medical/Surgical History Diabetic: No -: HTN -: COPD -: CHF, diastolic dysfunction -: GERD -: Morbid obesity -: Anxiety -: DDD, DJD lumbar spine, chronic pain -: Melanoma removed from back -: History of Liver tumor -: Chronic back pain-Pain management-Dr. Herron -: Depression with anxiety -: Hernia -: Left ovarian tumor removal -: Hysterectomy -: Hernia Repair Psychosocial/ Personal History: , Disabled, 5 children - Family History Father -: Heart disease, Hypertension, Diabetes, Cancer, Liver disease Mother -: Heart disease, Hypertension, Diabetes, Cancer Sister -: Heart disease, Hypertension, Diabetes Brother -: Hypertension - Social History Alcohol use: No CD- Drugs: No Caffeine use: Yes Review of Systems 10-point ROS is otherwise unremarkable Physical Examination - Physical Exam General: Alert, In no apparent distress, Obese HEENT: Atraumatic, PERRLA Neck: Supple, 2+ carotid pulse no bruit, No LAD, Without JVD or thyroid abnormality Respiratory: Clear to auscultation bilaterally, Normal air movement Cardiovascular: Regular rate/rhythm, Normal S1 S2 Gastrointestinal: Normal bowel sounds, Tenderness Musculoskeletal: No tenderness Integumentary: No rashes Neurological: Normal speech, Normal tone Lymphatics: No axilla or inguinal lymphadenopathy - Studies Laboratory Data (last 24 hrs) 12/10/17 14:50: PT 13.8 H, INR 1.17, APTT 31.3 12/10/17 14:50: Sodium 141, Potassium 3.5, BUN 15, Creatinine 0.90, Glucose 98 12/10/17 14:50: WBC 9.1, Hgb 11.3 L, Hct 34.5 L, Plt Count 263 Assessment and Plan - Plan Assessment and Plan: 1. Colitis 2.2 to abx use -Abd CT with Colitis mild -IV cipro and flagyl -Cdiff pending at this time -F.u with Culture -NPO and then CLD 2. Fall -Fall precaution given -PT consult -may need HH 3. HTN -Restart home medicaiton 4. Afib chronic 5. CHF systolic 6. COPD 7. Anxiety Dispo: Admit to Med surg for IV abx and PT consult. Discharge Plan: Home Plan to discharge in: 48 Hours - Advance Directives Does patient have a Living Will: No Does patient have a Durable POA for Healthcare: No - Code Status/Comfort Care Code Status Assessed: Yes Critical Care: No
[2017-12-10] MEDS ORDERED: ONDANSETRON 4 MG/2 ML VIAL IV PRN (17:59)
[2017-12-10] MEDS ORDERED: ACETAMINOPHEN 500 MG TAB PO PRN (17:59)
[2017-12-10 18:23] VITALS: BMI 64.5
[2017-12-10] MEDS: METRONIDAZOLE 500mg IVPB 500 MG/100 ML BAG IV SCH (19:12)
[2017-12-10] MEDS: DIPHENHYDRAMINE 50 MG/ML VIAL IV PRN (21:37)
[2017-12-10] MEDS: CIPROFLOXACIN 400mg IV 400 MG/200 ML BAG IV SCH (21:38)
[2017-12-10] MEDS: ENOXAPARIN 40 MG/0.4 ML SQ SCH (21:51)
[2017-12-10] MEDS ORDERED: KCL 20 MEQ/100 mL IVPB 20 MEQ/100 ML BAG IV SCH (22:00)
[2017-12-10] MEDS: Oxycodone HCl/Acetaminophen 1 TAB TAB PO PRN (22:35)
[2017-12-10] MEDS ORDERED: NA CHLORIDE 0.9% 250 ML ONE (22:37)
[2017-12-11] MEDS: Oxycodone HCl/Acetaminophen 1 TAB TAB PO PRN ×5 (02:08→22:12)
[2017-12-11] MEDS: METRONIDAZOLE 500mg IVPB 500 MG/100 ML BAG IV SCH ×3 (03:24→17:18)
[2017-12-11 05:19] LABS: Absolute Lymphocytes (CBC) 1.5 K/uL (0.7-4.9); Basophils % 0.8 % (0-1.3); Eosinophils % 9.5 % (0-4.4); Hematocrit 33.5 % (36.0-45.0); Lymphocytes % 18.3 % (15.3-44.8); MCH 28.4 pg (27.0-35.0); MCV 87.3 fL (80-100); MPV 7.6 fL (7.6-11.3); RBC Red Blood Cell Count 3.84 M/uL (3.86-4.86)
[2017-12-11 05:49] LABS: Albumin 2.7 g/dL (3.4-5.0); Bilirubin Total 0.5 mg/dL (0.2-1.0); Magnesium 1.8 mg/dL (1.8-2.4); Phosphorus 3.8 mg/dL (2.5-4.9); Potassium 3.5 mmol/L (3.5-5.1); Protein, Total 5.9 g/dL (6.4-8.2)
[2017-12-11] MEDS ORDERED: MAGNESIUM SULFATE 1 gm IVPB 1 GM/100 ML BAG IV ONE (06:10)
[2017-12-11] MEDS ORDERED: NA CHLORIDE 0.9% 250 ML ONE (06:45)
[2017-12-11] MEDS ORDERED: KCL 20 MEQ/100 mL IVPB 20 MEQ/100 ML BAG IV SCH (08:00)
[2017-12-11] MEDS: CIPROFLOXACIN 400mg IV 400 MG/200 ML BAG IV SCH ×2 (08:58→21:00)
[2017-12-11] MEDS: ENOXAPARIN 40 MG/0.4 ML SQ SCH (08:58)
[2017-12-11] MEDS: DIPHENHYDRAMINE 50 MG/ML VIAL IV PRN ×2 (08:58→22:32)
[2017-12-11] MEDS ORDERED: POTASSIUM 25 MEQ EFFERV TAB PO ONE (13:23)
--- NOTE | 2017-12-11 13:41 | P.PN ---
Subjective Date of Service: 12/11/17 Chief Complaint: Colitis Patient seen and examined at bedside with RN. Chart reviewed. Case discussed with family and patient at bedside. Currently doing much better than before. Had a 2 bouts of diarrhea overnight has improved drastically from 4-5 diarrheal episodes at home. Review of Systems 10-point ROS is otherwise unremarkable Physical Examination - Vital Signs Temperature: 97.9 F Blood Pressure: 110/60 Pulse: 88 Respirations: 20 Pulse Ox (%): 93 - Physical Exam General: Alert, In no apparent distress, Obese HEENT: Atraumatic, PERRLA, EOMI Neck: Supple, JVD not distended Respiratory: Clear to auscultation bilaterally, Normal air movement Cardiovascular: Regular rate/rhythm, Normal S1 S2 Gastrointestinal: Normal bowel sounds, No tenderness Musculoskeletal: No tenderness Integumentary: No rashes Neurological: Normal speech, Normal tone, Normal affect Lymphatics: No axilla or inguinal lymphadenopathy - Studies Laboratory Data (last 24 hrs) 12/10/17 14:50: PT 13.8 H, INR 1.17, APTT 31.3 12/10/17 14:50: Sodium 141, Potassium 3.5, BUN 15, Creatinine 0.90, Glucose 98 12/10/17 14:50: WBC 9.1, Hgb 11.3 L, Hct 34.5 L, Plt Count 263 Medications List Reviewed: Yes Assessment And Plan - Plan Assessment and Plan: 1. Colitis 2.2 to abx use -Abd CT with Colitis -IV cipro and flagyl. Will continue today -Cdiff pending at this time -advance diet to a clear liquid diet today. 2. Fall -Fall precaution given -PT consult -may need HH 3. HTN -Restart home medication 4. Afib chronic 5. CHF systolic 6. COPD 7. Anxiety Dispo: Awaiting clinical improvement at this time. Will advance diet to a clear liquid diet today if patient is able to tolerated will go ahead and bands a diet further. Once patient is able to ambulate with physical therapy and able to tolerate p.o. intake she will have transition to p.o. antibiotics. Anticipate discharge in 24-48 hr after that. Discharge Plan: Home Plan to discharge in: 48 Hours - Code Status/Comfort Care Code Status Assessed: Yes Critical Care: No
[2017-12-11] MEDS: CIPROFLOXACIN 0.3% ML OPHTH OPTH SCH ×2 (17:26→21:00)
[2017-12-11] MEDS: Levofloxacin500mg IV 500 MG/100 ML BAG IV SCH (22:33)
[2017-12-12] MEDS: METRONIDAZOLE 500mg IVPB 500 MG/100 ML BAG IV SCH ×3 (00:43→17:39)
[2017-12-12 05:14] LABS: Albumin 2.9 g/dL (3.4-5.0); Bilirubin Total 0.4 mg/dL (0.2-1.0); Magnesium 2.2 mg/dL (1.8-2.4); Potassium 4.2 mmol/L (3.5-5.1); Protein, Total 6.6 g/dL (6.4-8.2)
[2017-12-12 05:21] LABS: Absolute Lymphocytes (CBC) 1.9 K/uL (0.7-4.9); Absolute Monocytes 1.2 K/uL (0.1-1.3); Absolute Neutrophil 5.9 K/uL (1.8-8.0); Basophils % 0.7 % (0-1.3); Eosinophils % 7.7 % (0-4.4); Hematocrit 36.5 % (36.0-45.0); Lymphocytes % 19.4 % (15.3-44.8); MCH 28.6 pg (27.0-35.0); MCV 88.5 fL (80-100); MPV 7.7 fL (7.6-11.3); Monocytes % 12.2 % (3.3-12.3); RBC Red Blood Cell Count 4.13 M/uL (3.86-4.86)
[2017-12-12] MEDS: Oxycodone HCl/Acetaminophen 1 TAB TAB PO PRN ×4 (09:31→21:53)
[2017-12-12] MEDS: ENOXAPARIN 40 MG/0.4 ML SQ SCH (09:33)
[2017-12-12] MEDS: CIPROFLOXACIN 0.3% ML OPHTH OPTH SCH ×2 (09:35→21:00)
[2017-12-12] MEDS: DIPHENHYDRAMINE 50 MG/ML VIAL IV PRN ×2 (11:39→22:41)
--- NOTE | 2017-12-12 13:03 | P.PN ---
Subjective Date of Service: 12/12/17 Chief Complaint: Colitis Patient seen and examined at bedside with RN. Chart reviewed. Currently doing much better than before. Awaiting physical therapy recommendations at this time. Patient wanting to go home with home health however educated on the need to be evaluated by physical therapy for proper disposition Review of Systems 10-point ROS is otherwise unremarkable Physical Examination - Vital Signs Temperature: 100.2 F Blood Pressure: 149/66 Pulse: 95 Respirations: 16 Pulse Ox (%): 92 - Physical Exam General: Alert, In no apparent distress, Obese HEENT: Atraumatic, PERRLA, EOMI Neck: Supple, JVD not distended Respiratory: Clear to auscultation bilaterally, Normal air movement Cardiovascular: Regular rate/rhythm, Normal S1 S2 Gastrointestinal: Normal bowel sounds, No tenderness Musculoskeletal: No tenderness Integumentary: No rashes Neurological: Normal speech, Normal tone, Normal affect Lymphatics: No axilla or inguinal lymphadenopathy - Studies Medications List Reviewed: Yes Assessment And Plan - Plan Assessment and Plan: 1. Colitis 2.2 to abx use -Abd CT with Colitis -IV cipro and flagyl. Will continue today -Cdiff pending at this time -advance diet to a clear liquid diet today. 2. Recurrent Fall secondary to unsteady gait worse is acute -Fall precaution given -PT consult -may need placement 3. HTN -Restart home medication 4. Afib chronic 5. CHF systolic 6. COPD 7. Anxiety Dispo: Awaiting clinical improvement at this time. The C. diff is pending at this time. Physical therapy evaluation pending at this time as well. If patient needs placement will talk to the family and patient about inpatient rehab as patient has used all her halfway facility days from previous time and has no benefits with halfway facility. Discharge Plan: Other Plan to discharge in: 48 Hours - Code Status/Comfort Care Code Status Assessed: Yes Critical Care: No
[2017-12-12] MEDS: Levofloxacin500mg IV 500 MG/100 ML BAG IV SCH (21:19)
[2017-12-13] MEDS: METRONIDAZOLE 500mg IVPB 500 MG/100 ML BAG IV SCH ×2 (00:30→08:25)
[2017-12-13 01:00] VITALS: O2SAT 94
[2017-12-13] MEDS: Oxycodone HCl/Acetaminophen 1 TAB TAB PO PRN ×4 (01:25→17:24)
[2017-12-13 05:01] LABS: Absolute Lymphocytes (CBC) 1.6 K/uL (0.7-4.9); Absolute Monocytes 1.1 K/uL (0.1-1.3); Absolute Neutrophil 4.5 K/uL (1.8-8.0); Basophils % 0.8 % (0-1.3); Eosinophils % 9.3 % (0-4.4); Hematocrit 33.7 % (36.0-45.0); Lymphocytes % 19.9 % (15.3-44.8); MCH 28.6 pg (27.0-35.0); MCV 88.3 fL (80-100); MPV 7.4 fL (7.6-11.3); Monocytes % 13.8 % (3.3-12.3); RBC Red Blood Cell Count 3.82 M/uL (3.86-4.86)
[2017-12-13 05:12] LABS: Albumin 2.6 g/dL (3.4-5.0); Bilirubin Total 0.3 mg/dL (0.2-1.0); Potassium 4.1 mmol/L (3.5-5.1)
[2017-12-13] MEDS: ENOXAPARIN 40 MG/0.4 ML SQ SCH (08:25)
[2017-12-13] MEDS: CIPROFLOXACIN 0.3% ML OPHTH OPTH SCH (08:26)
--- NOTE | 2017-12-13 12:26 | P.DS ---
Admission Date: 12/10/17 Discharge Date: 12/13/17 Disposition: TRANSFER TO INPATIENT REHAB Discharge Condition: GOOD Reason for Admission: Colitis Consultations: None Brief History of Present Illness: 67 y/o F with pmhx of COPD, Afib, CHF, HTN, Anxiety and Asthma who presented to the ER with Complains of Diarrhea, Fever and Chills x 4 days. Progressively getting Worse since 4 days. Diarrhea is NB and Watery in consistency. Recently admitted to the hospital for UTI and sent to SNF for IV abx for ecoli for 14days. Pt also had a fall x 2 at the house. Fever is subjective and Chills are intermittent. No Nausea or vomitting noted. Pt also complains of having generalized weakness since past 6 to 7 days. No other symptoms noted. Hospital Course: Discharge Diagnosis 1. Colitis 2.2 to abx use 2. Recurrent Fall secondary to unsteady gait worse is acute 3. HTN 4. Afib chronic 5. CHF systolic 6. COPD 7. Anxiety Hospital Course Overall patient remained stable while here in the hospital The patient was initially admitted to the hospital after having generalized weakness and having a fall at the house. Patient also had diarrhea at the house as well. C. diff was collected which was positive. Patient was started on Flagyl here in the hospital. Patient also had a UTI for which she was treated with Levaquin while here in the hospital. For patient's generalized weakness patient did have physical therapy consulted who recommended the patient me need inpatient rehab. Patient then had a rehab consult and got accepted to inpatient rehab for therapy. Patient then was discharged to inpatient rehab once her diarrhea has resolved for further therapy. Patient was educated extensively on the disease process and the need to have proper and hygiene patient then demonstrated understanding and then was discharged to inpatient rehab under stable condition Vital Signs/Physical Exam: Temp Pulse Resp BP Pulse Ox 98 F 80 20 144/66 H 94 12/13/17 08:00 12/13/17 08:00 12/13/17 08:00 12/13/17 08:00 12/13/17 08:00 General: Alert, In no apparent distress, Obese HEENT: Atraumatic, PERRLA, EOMI Neck: Supple, JVD not distended Respiratory: Clear to auscultation bilaterally, Normal air movement Cardiovascular: Regular rate/rhythm, Normal S1 S2 Gastrointestinal: Normal bowel sounds, No tenderness Musculoskeletal: No tenderness Integumentary: No rashes Neurological: Normal speech, Normal tone, Normal affect Lymphatics: No axilla or inguinal lymphadenopathy Laboratory Data at Discharge: WBC 7.9 K/uL (4.3-10.9) D 12/13/17 04:24 Hgb 10.9 g/dL (12.0-15.0) L 12/13/17 04:24 Hct 33.7 % (36.0-45.0) L 12/13/17 04:24 Plt Count 297 K/uL (152-406) 12/13/17 04:24 PT 13.8 SECONDS (9.5-12.5) H 12/10/17 14:50 INR 1.17 12/10/17 14:50 APTT 31.3 SECONDS (24.3-36.9) 12/10/17 14:50 Sodium 140 mmol/L (136-145) 12/13/17 04:24 Potassium 4.1 mmol/L (3.5-5.1) 12/13/17 04:24 BUN 15 mg/dL (7-18) 12/13/17 04:24 Creatinine 1.00 mg/dL (0.55-1.3) 12/13/17 04:24 Glucose 114 mg/dL (74-106) H 12/13/17 04:24 Phosphorus 3.8 mg/dL (2.5-4.9) 12/11/17 04:25 Magnesium 2.2 mg/dL (1.8-2.4) 12/12/17 04:44 Total Bilirubin 0.3 mg/dL (0.2-1.0) 12/13/17 04:24 AST 21 U/L (15-37) 12/13/17 04:24 ALT 23 U/L (12-78) 12/13/17 04:24 Alkaline Phosphatase 75 U/L (45-117) 12/13/17 04:24 Home Medications: Albuterol Inhaler [Ventolin Inhaler*] 2 puff IH QID 11/12/17 Amlodipine [Norvasc*] 5 mg PO DAILY 11/12/17 Aspirin 81 mg PO DAILY 11/12/17 Esomeprazole Mag Trihydrate [Nexium] 1 cap PO DAILY 11/12/17 Furosemide [Lasix*] 40 mg PO DAILY 11/12/17 Gabapentin [Neurontin*] 400 mg PO BID 11/12/17 Metoprolol Tartrate [Lopressor*] 50 mg PO DAILY 11/12/17 Nystatin 100,000 unit TD QID 11/12/17 Oxycodone HCl/Acetaminophen [Endocet 10-325 mg Tablet] 1 each PO Q4H PRN Prednisone [Deltasone] 20 mg PO DAILY 11/12/17 Promethazine HCl [Phenergan] 25 mg PO Q6HR 11/12/17 Sertraline [Zoloft*] 2 tab PO DAILY 11/12/17 clonazePAM [Clonazepam] 1 mg PO BID 11/12/17 hydrOXYzine pamoate [Hydroxyzine Pamoate] 1 tab PO BID PRN 11/13/17 Arformoterol Tartrate [Brovana] 15 mcg NEB BIDRESP #60 vial.neb 11/15/17 Lisinopril 40 mg PO DAILY #30 tablet 11/15/17 Ciprofloxacin HCl [Ciprofloxacin 0.3% Ophth Maggie] 1 drops OPTH BID #1 btl levoFLOXacin [Levaquin] 500 mg PO DAILY #14 tab 12/13/17 metroNIDAZOLE [Flagyl] 500 mg PO Q8H #42 tablet 12/13/17 New Medications: Ciprofloxacin HCl [Ciprofloxacin 0.3% Ophth Maggie] 1 drops OPTH BID #1 btl levoFLOXacin [Levaquin] 500 mg PO DAILY #14 tab metroNIDAZOLE [Flagyl] 500 mg PO Q8H #42 tablet Patient Discharge Instructions: Please f.u with PCP IN 1TO 2 WEEK POST DISCHARge. New medication. Levaquin 500mg daily for 14 days. Flagyl 500mg q8h for 14 days Diet: Regular Activity: Ad leti
[2017-12-13] MEDS ORDERED: DIPHENHYDRAMINE 25 MG TAB/CAP PO PRN (15:11)
[2017-12-13 15:37] VITALS: TEMP 97.1
[2017-12-13] MEDS ORDERED: VANCOMYCIN ORAL SOLN 250 MG/5 ML OSYR PO SCH (18:00)
[2017-12-13 18:09] VITALS: BP 130/64
== END 2017-12-13 18:21 ==
LOC: ER 14:08 → ERHOLD 16:20 → 2ND 17:13
PROVIDERS: ADMIT Family Medicine; ATTEND Family Medicine
DX: A04.72 Enterocolitis due to Clostridium difficile, not specified as recurrent (principal); N39.0 Urinary tract infection, site not specified; J44.9 Chronic obstructive pulmonary disease, unspecified; I11.0 Hypertensive heart disease with heart failure; I50.22 Chronic systolic (congestive) heart failure; F41.9 Anxiety disorder, unspecified; I48.2 Chronic atrial fibrillation; J45.909 Unspecified asthma, uncomplicated; E66.01 Morbid (severe) obesity due to excess calories; Z68.44 Body mass index [BMI] 60.0-69.9, adult
CPT/HCPCS: 36415; 51702; 70450; 71260; 74177; 80048; 80053; 81003; 81015; 83735; 83880; 84100; 85025; 85610; 85730; 87077; 87086; 87088; 87186; 87493; 97163; 99285; G0378; J0744; J1650; J2405; J3475; Q9967

== ENCOUNTER 2017-12-13 10:38 | Inpatient (IN) | payer OTHER ==
--- NOTE | 2017-12-13 14:35 | R.PREADM ---
SCREENING DATE AND TIME 12/13/2017 13:05 (CDT) ANTICIPATED REHAB ADMISSION DATE 12/15/2017 REFERRING FACILITY [facility] REFERRAL DATE AND TIME 12/13/2017 13:05 (CDT) ACUTE ADMIT DATE 12/10/2017 Previous Rehabilitation(s): No. REFERRING PHYSICIAN Evita Rausch REHAB FACILITY [facility] CLINICAL LIAISON Nathanael Ely PHYSICIAN REVIEWER Dr. Pancho De Santiago M.D. MR# [id number] NAME ELIJAH ORTEGA ADDRESS [address] [facility] PHONE [facility] [id number] DATE OF 1950 AGE 67 SSN# [id number] GENDER female MARITAL STATUS RACE white ADMIT FROM 02 - [facility] PRE-HOSPITAL LIVING SETTING 01 - Home (private home/apt. board/care, assisted living, chcf, transitional living) HOME TYPE AND DETAILS Type of home: single family house # of steps to enter the residence: 4 # of steps within the residence: 0 # of levels in the residence: 1 PRE-HOSPITAL LIVING WITH Family/Relatives FAMILY SUPPORT Yes PRIMARY FAMILY CONTACT NAME Raffi Rawls PRIMARY FAMILY CONTACT PHONE PHONE PRIMARY FAMILY CONTACT ON ADM.? no IS PRIMARY FAMILY CONTACT AUTH. REP.? no 1ST EMERGENCY CONTACT Raffi Rawls 1ST CONTACT PHONE PHONE 1ST CONTACT ON ADM. no IS 1ST CONTACT AUTH. REP.? no PHONE 2ND CONTACT ON ADM.? no PATIENT EMPLOYMENT STATUS Retired (for age) PATIENT EMPLOYER No Employer PAYOR INFORMATION: 1ST PAYOR NAME Medicare 1ST PAYOR PHONE 1ST PAYOR INJURY/ILLNESS DUE TO ACCIDENT? No ANOTHER CONSTITUTION PARTY RESPONSIBLE? No PRIMARY REHAB/ACUTE DIAGNOSIS: colitis hypertension chronic Afib CHF systolic COPD Anxiety ONSET DATE 12/10/2017 REHAB IMPAIRMENT CATEGORY ([place]): 20 Miscellaneous (Misc) does NOT meet 60% rule PRIMARY DIAGNOSIS-RELATED SURGERIES: No surgeries related to the primary diagnosis were performed. COMORBID REHAB/ACUTE DIAGNOSES: - N/A asthma diarrhea Falls INTERVENTIONS: - Asthma ABG's Inhalers Medications Nebulizers Respiratory therapy X-Rays RISK FOR COMPLICATIONS: - Asthma Hypoxia Metabolic acidosis Worsening of asthma SUMMARY OF ACUTE HOSPITALIZATION: Pt. is a 67 yo Right-handed white female. On 12/10/2017 she was admitted to [facility] with diagnosis colitis. Her impairment category is Medically Complex Conditions 17 - Other Medically Complex Conditions (17. 9). Pre-morbidly, Pt. was independent/mod-I in Sphincter Control, Communication, Social Cognition, Self-C are, and Locomotion; and she had good Sphincter Control. Currently, she has deficits of Endurance, Safety Awareness, Transfers Control, Communication, Social Cognition, Balance, Locomotion, and Self-Care. Pt. is now referred to [facility] for acute in-patient rehabilitation in order to maximize patient's functional independence in activities of daily living, strength, ROM, and mobi lity. Patient has realistic goal of being discharged at assistance level 6-Zainab to reside at Home with Fam genevieve/Relatives. PAST MEDICAL HISTORY Falls asthma diarrhea MEDICATION ALLERGIES: amitriptyline HCI Ciprofloxacin Phenobarbital ENVIRONMENTAL ALLERGIES: - Substance Allergies None Known - Other Allergies None Known CODE STATUS: Full code WEIGHT/HEIGHT/BMI: WEIGHT 370 lbs HEIGHT 5' 4" BMI 63.5 DIET: - Diet Type Regular - Diet - Solid Texture Regular - Diet - Liquid Texture Regular - Tube Feed N/A REVIEW OF SYSTEMS: - Gen Alert and awake Lying in bed No apparent distress Oriented to: person, time, and place - CVS RRR VITAL SIGNS Temperature: 98.3F SBP/DBP: 140/81 Pulse: 80 Resp: 18 Vital signs stable, afebrile CURRENT SPHINCTER CONTROL: Pre-hospital bladder status: incontinent # of bladder accidents in the last 7 days prior to screenin Pre-hospital bowel status: incontinent # of bowel accidents in the last 7 days prior to screenin Last Bowel Movement Date: 12/13/2017 DETAILED CURRENT FUNCTIONAL STATUS: - Bladder Bladder control device used: diaper accident frequency: Ind - No accidents in the past 7 days - Bowel Bowel control device used: diaper accident frequency: Ind - No accidents in the past 7 days - Walking score based on distance walked: 0(N/A) - Wheelchair score based on distance traveled: 0(N/A) FUNCTIONAL STATUS: - Self-Care A. Eating Ind Ind B. Grooming Ind Ind C. Bathing Joanna maxA D. Dressing - Upper sup sup E. Dressing - Lower Joanna maxA F. Toileting Dep Dep - Sphincter Control G: Bladder control Dep Dep H: Bowel control Dep Dep - Transfers Control I. Bed/Chair/Wheelchair sup modA J. Toilet sup modA K. Tub/Shower sup modA - Locomotion L. Walk/Wheelchair (B) Zainab maxA M. Stairs Joanna ADNO - Communication N. Comprehension (B) Ind sup O. Expression (B) Ind sup - Social Cognition P. Social Interaction Ind sup Q. Problem Solving Ind sup R. Memory Ind sup - Endurance Poor - Balance Fair - Safety Awareness Poor CURRENT FUNC. DEFICITS: Endurance, Safety Awareness, Transfers Control, Communication, Social Cognition, Balance, Locomotion, and Self-Care THERAPY NOTES FROM ACUTE CARE: Attached. SPECIAL NEEDS: - Safety Concerns Skin breakdown precautions needed due to skin breakdown risk PATIENT NEEDS ACTIVE AND ONGOING THERAPEUTIC INTERVENTION OF MULTIPLE THERAPY DISCIPLINES, INCLUDING: - Occupational Therapy Evaluate and Treat. - Physical Therapy Evaluate and Treat. PATIENT NEEDS CLOSE MEDICAL SUPERVISION BY A REHABILITATION PHYSICIAN FOR: Bowel and Bladder Management Coordination of Treatment Team Medical and Co-Morbidity Management PATIENT REQUIRES 24X7 REHAB NURSING FOR MEDICAL AND FUNCTIONAL MGT. OF THE FOLLOWING DEFICITS: ADL's Ambulation Bowel and Bladder Management Cognition Communication Disease Management Medication Management Patient/Family Education Providing Safe Environment Transfers PATIENT REQUIRES INTENSIVE, COORDINATED INTERDISCIPLINARY APPROACH TO REHAB: Arranging Home Equipment/Services Discharge Planning Family Intervention/Training Pharmaceutical Development Technician/Case Management PATIENT REHAB POTENTIAL: Expected level of measurable improvement will be of a practical value to patient's functional capacit y or adaptations to impairments Has a viable Discharge Plan Medically appropriate; condition is sufficiently stable to participate in intensive rehab program Patient is able and expected to receive 3 hours of individualized therapy daily on at least 5 of ever y 7 days Patient's prognosis for significant practical improvement within a reasonable period of time appears Good DISCHARGE PLAN: - Estimated Length of Stay (days) 13. - Consensus on plan Discharge plan has been discussed with primary caregiver. Patient/Family is in agreement with the juan miguel n. Primary caregiver is in agreement with the plan. - Patient/Family Goals Return home with assistance. - Planned Living Setting Upon Discharge Home, to live with Family/Relatives. RECOMMENDED CARE LEVEL: IRF RECOMMENDATION DETAILS: Recommended Admission to Comprehensive Rehabilitation Program to Increase Functional [place] SCREENER'S COMPLETENESS CONFIRMATION: - Screening Confirmation The patient data collection on this preadmission screening form is finished PHYSICIANS REVIEW AND ADMISSION DETERMINATION Admit - Based on my review of the Pre-Admission Screening results, in my medical judgment and experie nce, I concur with the findings and recommend admission to [facility], as this patient requires an IRF level of care. SIGNATURE PANEL: Clinical Liaison - [electronically] signed by Rosmery Crawford on 12/13/2017 at 13:59 (CDT) Clinical Liaison - [electronically] signed by Nathanael Ely on 12/13/2017 at 14:20 (CDT) Physician Reviewer - [electronically] signed by Dr. Pancho De Santiago M.D. on 12/13/2017 at 14:34 (CDT )
[2017-12-13] MEDS: clonazePAM 1 MG TAB PO PRN (23:30)
[2017-12-13] MEDS: Oxycodone HCl/Acetaminophen 1 TAB TAB PO PRN (23:30)
[2017-12-14] MEDS: metroNIDAZOLE 500 MG TABLET PO SCH ×3 (01:00→16:18)
[2017-12-14] MEDS ORDERED: hydrOXYzine HCl 25 MG TAB PO PRN (01:03)
[2017-12-14 06:25] LABS: Absolute Monocytes 0.9 K/uL (0.1-1.3); Absolute Neutrophil 4.9 K/uL (1.8-8.0); Basophils % 0.5 % (0-1.3); Eosinophils % 8.4 % (0-4.4); Hematocrit 39.2 % (36.0-45.0); MCH 28.5 pg (27.0-35.0); MCV 89.7 fL (80-100); MPV 7.2 fL (7.6-11.3); Monocytes % 10.8 % (3.3-12.3); RBC Red Blood Cell Count 4.37 M/uL (3.86-4.86)
[2017-12-14] MEDS: PANTOPRAZOLE 40MG TABLET PO SCH (06:26)
[2017-12-14 07:20] LABS: Albumin 3.1 g/dL (3.4-5.0); Magnesium 2.1 mg/dL (1.8-2.4); Potassium 4.4 mmol/L (3.5-5.1); Prealbumin 10.8 mg/dL (20-40)
[2017-12-14] MEDS: CIPROFLOXACIN 0.3% ML OPHTH OPTH SCH ×2 (08:00→20:00)
[2017-12-14] MEDS: LISINOPRIL 20 MG TAB PO SCH (08:37)
[2017-12-14] MEDS: GABAPENTIN 400 MG CAP PO SCH ×2 (08:37→20:28)
[2017-12-14] MEDS: DIPHENHYDRAMINE 25 MG TAB/CAP PO PRN ×2 (08:37→16:18)
[2017-12-14] MEDS: METOPROLOL TAR 50 MG TAB PO SCH (08:38)
[2017-12-14] MEDS: FUROSEMIDE 40 MG TABLET PO SCH (08:38)
[2017-12-14] MEDS: ASPIRIN EC 81 MG TAB PO SCH (08:38)
[2017-12-14] MEDS: levoFLOXacin 500 MG TAB PO SCH (08:38)
[2017-12-14] MEDS: AMLODIPINE 5 MG TAB PO SCH (08:38)
[2017-12-14] MEDS: predniSONE 20 MG TAB PO SCH (08:39)
[2017-12-14] MEDS: SERTRALINE HCL 50 MG TAB PO SCH (08:42)
[2017-12-14] MEDS: Oxycodone HCl/Acetaminophen 1 TAB TAB PO PRN ×4 (09:29→21:04)
[2017-12-14] MEDS: ALBUTEROL INHALER 60 PUFF/8 GM IH SCH ×4 (09:37→20:30)
[2017-12-14] MEDS: ARFORMOTEROL TARTRATE 15 MCG/2 ML VIAL.NEB NEB SCH ×2 (09:45→19:39)
[2017-12-14] MEDS: VANCOMYCIN ORAL SOLN 250 MG/5 ML OSYR PO SCH ×2 (16:57→20:28)
[2017-12-14] MEDS: clonazePAM 1 MG TAB PO PRN (21:03)
--- NOTE | 2017-12-14 23:26 | FAST ---
SHIFT START DATE/TIME: 12/14/2017 07:00 (CDT) SHIFT END DATE/TIME: 12/14/2017 19:00 (CDT) NAME ELIJAH ORTEGA DATE OF : 1950 DATE OF ADMISSION: 12/13/2017 18:47 (CDT) PHONE: AGE: 67 N# [id number] GENDER: Female ENCOUNTER PHYSICIAN: Dr. Pancho De Santiago M.D. ADMISSION DIAGNOSIS: - Medically Complex Conditions 17 - Other Medically Complex Conditions (17.9) colitis. hypertension. chronic Afib. CHF systolic. COPD. Anxiety. EATING: EATING - STEP 1: Does the patient require assistance when eating? Yes. EATING - STEP 2: Does the patient require the assistance of a helper? Yes. EATING - STEP 3: Does the patient perform half or more of the eating tasks? Yes. EATING - STEP 4: Does the patient need only supervision, cuing, coaxing OR help to apply an orthosis OR help to cut fo od, open containers, pour liquids, or butter bread? Yes. EATING - SCORE: 5-SUP GROOMING: Activity did not occur on this shift GROOMING - SCORE: 0-UNK BATHING: Activity did not occur on this shift BATHING - SCORE: 0-UNK DRESSING - UPPER BODY: Activity did not occur on this shift ARTICLES SCORE Total number of steps: 0 DRESSING - UPPER BODY - SCORE: 0-UNK DRESSING - LOWER BODY: Activity did not occur on this shift ARTICLES SCORE Total number of steps: 0 DRESSING - LOWER BODY - SCORE: 0-UNK TOILETING: TOILETING - STEP 1: Does the patient require assistance with toileting? Yes. TOILETING - STEP 2: Does the patient require the assistance of a helper? Yes. TOILETING - STEP 3: How much assistance does the patient require from the helper? Hands-on assistance from the helper TOILETING - STEP 4: Of the 3 tasks: 1) Adjusting clothing prior to use, 2) Cleansing of perineal area, 3) Adjusting clot brooks after use; How many tasks does the patient perform WITHOUT assistance of the helper? Two tasks TOILETING - SCORE: 3-MOD BLADDER MANAGEMENT: BLADDER MANAGEMENT - STEP 1: Does the patient control the bladder completely and intentionally without equipment or devices or med ications, and is always continent? No. BLADDER MANAGEMENT - STEP 2: Does the patient require the assistance of a helper? No, patient requires and independently uses an a ssistive device, such as a urinal, bedpan, bedside commode, catheter, absorbent pad, or collecting de vice BLADDER MANAGEMENT - SCORE: 6-LUIS ARMANDO BOWEL MANAGEMENT: Activity did not occur on this shift BOWEL MANAGEMENT - SCORE: 7-IND TRANSFERS: BED, CHAIR, WHEELCHAIR: TRANSFERS: BED, CHAIR, WHEELCHAIR - STEP 1: Does the patient require assistance with bed, chair, or wheelchair transfers? Yes. TRANSFERS: BED, CHAIR, WHEELCHAIR - STEP 2: Does the patient require the assistance of a helper? Yes. TRANSFERS: BED, CHAIR, WHEELCHAIR - STEP 3: How much assistance does the patient require from the helper? Lifting of the legs TRANSFERS: BED, CHAIR, WHEELCHAIR - STEP 4: How many legs does the patient require the helper to lift? both legs TRANSFERS: BED, CHAIR, WHEELCHAIR - SCORE: 3-MOD TRANSFERS: TOILET: TRANSFERS: TOILET - STEP 1: Does the patient require assistance with toilet transfers? Yes. TRANSFERS: TOILET - STEP 2: Does the patient require the assistance of a helper? Yes. TRANSFERS: TOILET - STEP 3: How much assistance does the patient require from the helper? Patient performs less than half of the transferring tasks TRANSFERS: TOILET - STEP 4: Does the patient require total assistance for the toilet transfer such as the helper doing basically all the lifting? No. TRANSFERS: TOILET - SCORE: 2-MAX TRANSFERS: SHOWER: Activity did not occur on this shift TRANSFERS: SHOWER - SCORE: 0-UNK TRANSFERS: TUB: Activity did not occur on this shift TRANSFERS: TUB - SCORE: 0-UNK LOCOMOTION: WALK: Activity did not occur on this shift LOCOMOTION: WALK - SCORE: 0-UNK LOCOMOTION: WHEELCHAIR: Activity did not occur on this shift LOCOMOTION: WHEELCHAIR - SCORE: 0-UNK COMPREHENSION: COMPREHENSION: TYPE: Both COMPREHENSION - STEP 1: Does the patient require help to understand complex and abstract ideas (such as current events, finan sebastian, discharge planning, medical issues, relationships, etc)? No. COMPREHENSION - STEP 2: Does the patient need extra time, require an assistive device (such as glasses for visual comprehensi on or a hearing aid for auditory comprehension) or does s/he have mild difficulty understanding compl ex and abstract information? Yes. COMPREHENSION - SCORE: 6-LUIS ARMANDO EXPRESSION EXPRESSION: TYPE: Both EXPRESSION - STEP 1: Does the patient require help expressing complex and abstract ideas (such as current events, finances , discharge planning, medical issues, relationships, etc)? No. EXPRESSION - STEP 2: Does the patient need extra time, require an assistive device (such as augmentive communication syste m or a communication board), OR does s/he have mild difficulty expressing complex and abstract ideas (including mild dysarthria or mild word-find problems)? Yes. EXPRESSION - SCORE: 6-LUIS ARMANDO SOCIAL INTERACTION: SOCIAL INTERACTION - STEP 1: Does the patient require a helper to interact with others in social and therapeutic situations? No. SOCIAL INTERACTION - STEP 2: Does the patient need extra time in social situations, OR does s/he interact with staff, other patien ts, and family members ONLY in structured environments, OR does s/he require medication for social in teraction? Yes, patient needs extra time SOCIAL INTERACTION - SCORE: 6-LUIS ARMANDO PROBLEM SOLVING: PROBLEM SOLVING - STEP 1: Does the patient need help to solve complex problems such as managing a checking account or confronti ng interpersonal problems? No. PROBLEM SOLVING - STEP 2: Does the patient require extra time to make decisions or solve problems, OR does s/he have slight dif ficulty reading, initiating, or self-correcting in unfamiliar situations? Yes, patient needs extra ti me. PROBLEM SOLVING - SCORE: 6-LUIS ARMANDO MEMORY: MEMORY - STEP 1: Does the patient need help to remember frequently encountered people, daily routines, and executing r equests? No. MEMORY - STEP 2: Does the patient have slight difficulty recognizing frequently encountered people, daily routines, or executing requests without the need for repetition or using self-initiated or environmental cues to remember? Yes. MEMORY - SCORE: 6-LUIS ARMANDO SIGNATURE PANEL: The following modified sections: Eating - Score, Grooming - Score, Bathing - Score, Dressing - Upper Body - Score, Dressing - Lower Body - Score, Toileting - Score, Bladder Management - Score, Bowel Man agement - Score, Transfers: Bed, Chair, Wheelchair - Score, Transfers: Toilet - Score, Transfers: Yuli wer - Score, Transfers: Tub - Score, Locomotion: Walk - Score, Locomotion: Wheelchair - Score, Compre hension - Score, Expression - Score, Social Interaction - Score, Problem Solving - Score, Memory - Sc ore were [electronically] signed by Endy Strong on Sat Dec 14 2017 13:50:54 GMT-0500 (Central Daylight Time)
--- NOTE | 2017-12-14 23:27 | FAST ---
ENCOUNTER DATE AND TIME: 12/14/2017 08:00 (CDT) NAME ELIJAH ORTEGA DATE OF : 1950 DATE OF ADMISSION: 12/13/2017 18:47 (CDT) PHONE: AGE: 67 SSN# [id number] GENDER: Female ENCOUNTER PHYSICIAN: Dr. Pancho De Santiago M.D. ADMISSION DIAGNOSIS: - Medically Complex Conditions 17 - Other Medically Complex Conditions (17.9) colitis. hypertension. chronic Afib. CHF systolic. COPD. Anxiety. EATING: Activity did not occur on this shift EATING - SCORE: 0-UNK GROOMING: Activity did not occur on this shift GROOMING - SCORE: 0-UNK BATHING: Activity did not occur on this shift BATHING - SCORE: 0-UNK DRESSING - UPPER BODY: Activity did not occur on this shift Patient is not dressing in public clothing ARTICLES SCORE Total number of steps: 0 DRESSING - UPPER BODY - SCORE: 0-UNK DRESSING - LOWER BODY: Activity did not occur on this shift Patient is not dressing in public clothing ARTICLES SCORE Total number of steps: 0 DRESSING - LOWER BODY - SCORE: 0-UNK TOILETING: Activity did not occur on this shift TOILETING - SCORE: 0-UNK BLADDER MANAGEMENT: Activity did not occur on this shift BLADDER MANAGEMENT - SCORE: 7-IND BOWEL MANAGEMENT: Activity did not occur on this shift BOWEL MANAGEMENT - SCORE: 7-IND TRANSFERS: BED, CHAIR, WHEELCHAIR: TRANSFERS: BED, CHAIR, WHEELCHAIR - STEP 1: Does the patient require assistance with bed, chair, or wheelchair transfers? Yes. TRANSFERS: BED, CHAIR, WHEELCHAIR - STEP 2: Does the patient require the assistance of a helper? Yes. TRANSFERS: BED, CHAIR, WHEELCHAIR - STEP 3: How much assistance does the patient require from the helper? Lifting of the legs TRANSFERS: BED, CHAIR, WHEELCHAIR - STEP 4: How many legs does the patient require the helper to lift? both legs TRANSFERS: BED, CHAIR, WHEELCHAIR - SCORE: 3-MOD TRANSFERS: TOILET: TRANSFERS: TOILET - STEP 1: Does the patient require assistance with toilet transfers? Yes. TRANSFERS: TOILET - STEP 2: Does the patient require the assistance of a helper? Yes. TRANSFERS: TOILET - STEP 3: How much assistance does the patient require from the helper? Patient performs half or more of the tr ansferring tasks TRANSFERS: TOILET - STEP 4: Does the patient need only incidental help such as contact guard or steadying during toilet transfer? Yes. TRANSFERS: TOILET - SCORE: 4-MIN TRANSFERS: SHOWER: Activity did not occur on this shift TRANSFERS: SHOWER - SCORE: 0-UNK TRANSFERS: TUB: Activity did not occur on this shift TRANSFERS: TUB - SCORE: 0-UNK LOCOMOTION: WALK: Patient walks less than 50 feet LOCOMOTION: WALK - SCORE: 1-DEP LOCOMOTION: WHEELCHAIR: Activity did not occur on this shift LOCOMOTION: WHEELCHAIR - SCORE: 0-UNK LOCOMOTION: STAIRS: HOUSEHOLD EXCEPTION: Patient goes up and down at least 4 to 6 stairs independently (with or without a device) LOCOMOTION: STAIRS - SCORE: 5-SUP COMPREHENSION: COMPREHENSION - SCORE: 0-UNK EXPRESSION EXPRESSION - SCORE: 0-UNK SOCIAL INTERACTION: SOCIAL INTERACTION - SCORE: 0-UNK PROBLEM SOLVING: PROBLEM SOLVING - SCORE: 0-UNK MEMORY: MEMORY - SCORE: 0-UNK SIGNATURE PANEL: The following modified sections: Transfers: Bed, Chair, Wheelchair - Score, Transfers: Toilet - Score , Locomotion: Walk - Score, Locomotion: Wheelchair - Score, Locomotion: Stairs - Score were [electron matias] signed by Ruth Morris PTA on Sat Dec 14 2017 16:09:07 GMT-0500 (Central Daylight Time)
--- NOTE | 2017-12-14 23:27 | FAST ---
ENCOUNTER DATE AND TIME: 12/14/2017 08:00 (CDT) NAME ELIJAH ORTEGA DATE OF : 1950 DATE OF ADMISSION: 12/13/2017 18:47 (CDT) PHONE: AGE: 67 SSN# [id number] GENDER: Female ENCOUNTER PHYSICIAN: Dr. Pancho De Santiago M.D. ADMISSION DIAGNOSIS: - Medically Complex Conditions 17 - Other Medically Complex Conditions (17.9) colitis. hypertension. chronic Afib. CHF systolic. COPD. Anxiety. EATING: Activity did not occur on this shift EATING - SCORE: 0-UNK GROOMING: Wash, rinse, and dry face Wash, rinse, and dry hands GROOMING - STEP 1: Does the patient require assistance when grooming? No. GROOMING - SCORE: 7-IND BATHING: Abdomen Buttocks Chest Left arm Left lower leg and foot Left upper leg Perineal area Right arm Right lower leg and foot BATHING - STEP 1: Does the patient require assistance when bathing? Yes. BATHING - STEP 2: Does the patient require the assistance of a helper? Yes. BATHING - STEP 3: How much assistance does the patient require from the helper? More than just incidental help BATHING - STEP 4: What percent of the body parts did the patient bathe WITHOUT the helper? Less than half of the body p arts BATHING - SCORE: 2-MAX DRESSING - UPPER BODY: T-shirt/pullover shirt (four steps) ARTICLES SCORE Total number of steps: 4 DRESSING - UPPER BODY - STEP 1: Does the patient require help when dressing above the waist? Yes. DRESSING - UPPER BODY - STEP 2: Does the patient require the assistance of a helper? Yes. DRESSING - UPPER BODY - STEP 3: Does the helper touch the patient while dressing? Yes. DRESSING - UPPER BODY - STEP 4: How many of the total steps does the patient complete on his/her own? 3 DRESSING - UPPER BODY - SCORE: 4-MIN DRESSING - UPPER BODY - COMMENTS: Pullover shirt style dress DRESSING - LOWER BODY: Sock - Left foot (one step) Sock - Right foot (one step) Underwear (three steps) ARTICLES SCORE Total number of steps: 5 DRESSING - LOWER BODY - STEP 1: Does the patient require help when dressing below the waist? Yes. DRESSING - LOWER BODY - STEP 2: Does the patient require the assistance of a helper? Yes. DRESSING - LOWER BODY - STEP 3: Does the helper touch the patient while dressing? Yes. DRESSING - LOWER BODY - STEP 4: How many of the total steps does the patient complete on his/her own? 0 DRESSING - LOWER BODY - STEP 5: Does patient require total assistance for dressing below the waist such as the helper holding clothin g and performing basically all the activities? Yes. DRESSING - LOWER BODY - SCORE: 1-DEP TOILETING: Activity did not occur on this shift TOILETING - SCORE: 0-UNK BLADDER MANAGEMENT: Activity did not occur on this shift BLADDER MANAGEMENT - SCORE: 7-IND BOWEL MANAGEMENT: Activity did not occur on this shift BOWEL MANAGEMENT - SCORE: 7-IND TRANSFERS: BED, CHAIR, WHEELCHAIR: Activity did not occur on this shift TRANSFERS: BED, CHAIR, WHEELCHAIR - SCORE: 0-UNK TRANSFERS: TOILET: Activity did not occur on this shift TRANSFERS: TOILET - SCORE: 0-UNK TRANSFERS: SHOWER: TRANSFERS: SHOWER - STEP 1: Does the patient require assistance with shower transfers? Yes. TRANSFERS: SHOWER - STEP 2: Does the patient require the assistance of a helper? Yes. TRANSFERS: SHOWER - STEP 3: How much assistance does the patient require from the helper? More than incidental help TRANSFERS: SHOWER - STEP 4: How much more help does the patient require from the helper? Lifting the patient either up OR down fr om the wheelchair onto the shower chair TRANSFERS: SHOWER - SCORE: 3-MOD TRANSFERS: TUB: Activity did not occur on this shift TRANSFERS: TUB - SCORE: 0-UNK LOCOMOTION: WALK: Activity did not occur on this shift LOCOMOTION: WALK - SCORE: 0-UNK LOCOMOTION: WHEELCHAIR: Activity did not occur on this shift LOCOMOTION: WHEELCHAIR - SCORE: 0-UNK LOCOMOTION: STAIRS: Activity did not occur on this shift LOCOMOTION: STAIRS - SCORE: 0-UNK COMPREHENSION: COMPREHENSION: TYPE: Both COMPREHENSION - STEP 1: Does the patient require help to understand complex and abstract ideas (such as current events, finan sebastian, discharge planning, medical issues, relationships, etc)? No. COMPREHENSION - STEP 2: Does the patient need extra time, require an assistive device (such as glasses for visual comprehensi on or a hearing aid for auditory comprehension) or does s/he have mild difficulty understanding compl ex and abstract information? Yes. COMPREHENSION - SCORE: 6-LUIS ARMANDO EXPRESSION EXPRESSION: TYPE: Vocal EXPRESSION - STEP 1: Does the patient require help expressing complex and abstract ideas (such as current events, finances , discharge planning, medical issues, relationships, etc)? No. EXPRESSION - STEP 2: Does the patient need extra time, require an assistive device (such as augmentive communication syste m or a communication board), OR does s/he have mild difficulty expressing complex and abstract ideas (including mild dysarthria or mild word-find problems)? No. EXPRESSION - SCORE: 7-IND SOCIAL INTERACTION: SOCIAL INTERACTION - STEP 1: Does the patient require a helper to interact with others in social and therapeutic situations? No. SOCIAL INTERACTION - STEP 2: Does the patient need extra time in social situations, OR does s/he interact with staff, other patien ts, and family members ONLY in structured environments, OR does s/he require medication for social in teraction? No. SOCIAL INTERACTION - SCORE: 7-IND PROBLEM SOLVING: PROBLEM SOLVING - STEP 1: Does the patient need help to solve complex problems such as managing a checking account or confronti ng interpersonal problems? Yes. PROBLEM SOLVING - STEP 2: Does the patient solve basic routine problems half or more of the time? Yes. PROBLEM SOLVING - STEP 3: How often does the patient need help to solve basic routine problems? Less than 10% of the time PROBLEM SOLVING - SCORE: 5-SUP MEMORY: MEMORY - STEP 1: Does the patient need help to remember frequently encountered people, daily routines, and executing r equests? No. MEMORY - STEP 2: Does the patient have slight difficulty recognizing frequently encountered people, daily routines, or executing requests without the need for repetition or using self-initiated or environmental cues to remember? Yes. MEMORY - SCORE: 6-LUIS ARMANDO SIGNATURE PANEL: The following modified sections: Eating - Score, Grooming - Score, Bathing - Score, Dressing - Upper Body - Score, Dressing - Upper Body - Comments:, Dressing - Lower Body - Score, Toileting - Score, Tr ansfers: Bed, Chair, Wheelchair - Score, Transfers: Toilet - Score, Transfers: Shower - Score, Transf ers: Tub - Score, Comprehension - Score, Expression - Score, Social Interaction - Score, Problem Solv ing - Score, Memory - Score were [electronically] signed by Marie Dias OT on Sat Dec 14 2017 16: 25:07 GMT-0500 (Central Daylight Time)
--- NOTE | 2017-12-15 02:22 | FAST ---
SHIFT START DATE/TIME: 12/14/2017 19:00 (CDT) SHIFT END DATE/TIME: 12/15/2017 07:00 (CDT) NAME ELIJAH ORTEGA DATE OF : 1950 DATE OF ADMISSION: 12/13/2017 18:47 (CDT) PHONE: AGE: 67 N# [id number] GENDER: Female ENCOUNTER PHYSICIAN: Dr. Pancho De Santiago M.D. ADMISSION DIAGNOSIS: - Medically Complex Conditions 17 - Other Medically Complex Conditions (17.9) colitis. hypertension. chronic Afib. CHF systolic. COPD. Anxiety. EATING: EATING - STEP 1: Does the patient require assistance when eating? Yes. EATING - STEP 2: Does the patient require the assistance of a helper? Yes. EATING - STEP 3: Does the patient perform half or more of the eating tasks? Yes. EATING - STEP 4: Does the patient need only supervision, cuing, coaxing OR help to apply an orthosis OR help to cut fo od, open containers, pour liquids, or butter bread? Yes. EATING - SCORE: 5-SUP GROOMING: Activity did not occur on this shift GROOMING - SCORE: 0-UNK BATHING: Activity did not occur on this shift BATHING - SCORE: 0-UNK DRESSING - UPPER BODY: Patient is not dressing in public clothing ARTICLES SCORE Total number of steps: 0 DRESSING - UPPER BODY - SCORE: 0-UNK DRESSING - LOWER BODY: Patient is not dressing in public clothing ARTICLES SCORE Total number of steps: 0 DRESSING - LOWER BODY - SCORE: 0-UNK TOILETING: TOILETING - STEP 1: Does the patient require assistance with toileting? Yes. TOILETING - STEP 2: Does the patient require the assistance of a helper? Yes. TOILETING - STEP 3: How much assistance does the patient require from the helper? Hands-on assistance from the helper TOILETING - STEP 4: Of the 3 tasks: 1) Adjusting clothing prior to use, 2) Cleansing of perineal area, 3) Adjusting clot brooks after use; How many tasks does the patient perform WITHOUT assistance of the helper? Three tasks with steadying assistance from the helper TOILETING - SCORE: 4-MIN BLADDER MANAGEMENT: BLADDER MANAGEMENT - STEP 1: Does the patient control the bladder completely and intentionally without equipment or devices or med ications, and is always continent? No. BLADDER MANAGEMENT - STEP 2: Does the patient require the assistance of a helper? Yes. BLADDER MANAGEMENT - STEP 3: How much assistance does the patient require from the helper? Patient requires contact assistance fro m the helper BLADDER MANAGEMENT - STEP 4: How much contact assistance does the patient require from the helper? Patient requires minimal assist ance to maintain an external device - by positioning, and the patient performs 75% or more of bladder management tasks, while the helper provides less than 25% of the assistance to position patient on / off bedpan BLADDER MANAGEMENT - SCORE: 4-MIN BLADDER MANAGEMENT - FREQUENCY OF ACCIDENTS: BLADDER MANAGEMENT(FA) - STEP 1: How many accidents has the patient had during the current shift? 1 BOWEL MANAGEMENT: Activity did not occur on this shift BOWEL MANAGEMENT - SCORE: 7-IND TRANSFERS: BED, CHAIR, WHEELCHAIR: TRANSFERS: BED, CHAIR, WHEELCHAIR - STEP 1: Does the patient require assistance with bed, chair, or wheelchair transfers? Yes. TRANSFERS: BED, CHAIR, WHEELCHAIR - STEP 2: Does the patient require the assistance of a helper? Yes. TRANSFERS: BED, CHAIR, WHEELCHAIR - STEP 3: How much assistance does the patient require from the helper? Lifting of the legs TRANSFERS: BED, CHAIR, WHEELCHAIR - STEP 4: How many legs does the patient require the helper to lift? both legs TRANSFERS: BED, CHAIR, WHEELCHAIR - SCORE: 3-MOD TRANSFERS: TOILET: TRANSFERS: TOILET - STEP 1: Does the patient require assistance with toilet transfers? Yes. TRANSFERS: TOILET - STEP 2: Does the patient require the assistance of a helper? Yes. TRANSFERS: TOILET - STEP 3: How much assistance does the patient require from the helper? Patient performs half or more of the tr ansferring tasks TRANSFERS: TOILET - STEP 4: Does the patient need only incidental help such as contact guard or steadying during toilet transfer? Yes. TRANSFERS: TOILET - SCORE: 4-MIN TRANSFERS: SHOWER: Activity did not occur on this shift TRANSFERS: SHOWER - SCORE: 0-UNK TRANSFERS: TUB: Activity did not occur on this shift TRANSFERS: TUB - SCORE: 0-UNK LOCOMOTION: WALK: Activity did not occur on this shift LOCOMOTION: WALK - SCORE: 0-UNK LOCOMOTION: WHEELCHAIR: Activity did not occur on this shift LOCOMOTION: WHEELCHAIR - SCORE: 0-UNK COMPREHENSION: COMPREHENSION: TYPE: Both COMPREHENSION - STEP 1: Does the patient require help to understand complex and abstract ideas (such as current events, finan sebastian, discharge planning, medical issues, relationships, etc)? No. COMPREHENSION - STEP 2: Does the patient need extra time, require an assistive device (such as glasses for visual comprehensi on or a hearing aid for auditory comprehension) or does s/he have mild difficulty understanding compl ex and abstract information? Yes. COMPREHENSION - SCORE: 6-LUIS ARMANDO EXPRESSION EXPRESSION: TYPE: Both EXPRESSION - STEP 1: Does the patient require help expressing complex and abstract ideas (such as current events, finances , discharge planning, medical issues, relationships, etc)? No. EXPRESSION - STEP 2: Does the patient need extra time, require an assistive device (such as augmentive communication syste m or a communication board), OR does s/he have mild difficulty expressing complex and abstract ideas (including mild dysarthria or mild word-find problems)? No. EXPRESSION - SCORE: 7-IND SOCIAL INTERACTION: SOCIAL INTERACTION - STEP 1: Does the patient require a helper to interact with others in social and therapeutic situations? No. SOCIAL INTERACTION - STEP 2: Does the patient need extra time in social situations, OR does s/he interact with staff, other patien ts, and family members ONLY in structured environments, OR does s/he require medication for social in teraction? Yes, patient requires medication for social interaction SOCIAL INTERACTION - SCORE: 6-LUIS ARMANDO PROBLEM SOLVING: PROBLEM SOLVING - STEP 1: Does the patient need help to solve complex problems such as managing a checking account or confronti ng interpersonal problems? No. PROBLEM SOLVING - STEP 2: Does the patient require extra time to make decisions or solve problems, OR does s/he have slight dif ficulty reading, initiating, or self-correcting in unfamiliar situations? No. PROBLEM SOLVING - SCORE: 7-IND MEMORY: MEMORY - STEP 1: Does the patient need help to remember frequently encountered people, daily routines, and executing r equests? No. MEMORY - STEP 2: Does the patient have slight difficulty recognizing frequently encountered people, daily routines, or executing requests without the need for repetition or using self-initiated or environmental cues to remember? Yes. MEMORY - SCORE: 6-LUIS ARMANDO SIGNATURE PANEL: The following modified sections: Eating - Score, Grooming - Score, Bathing - Score, Dressing - Upper Body - Score, Dressing - Lower Body - Score, Toileting - Score, Bladder Management - Score, Bowel Man agement - Score, Transfers: Bed, Chair, Wheelchair - Score, Transfers: Toilet - Score, Transfers: Yuli wer - Score, Transfers: Tub - Score, Locomotion: Walk - Score, Locomotion: Wheelchair - Score, Compre hension - Score, Expression - Score, Social Interaction - Score, Problem Solving - Score, Memory - Sc ore were [electronically] signed by Trang Noe RN on SatDec 15 2017 02:21:57 GMT-0500 ([facility] Time)
[2017-12-15] MEDS: Oxycodone HCl/Acetaminophen 1 TAB TAB PO PRN ×5 (03:27→20:35)
[2017-12-15 05:57] LABS: Urine Appearance CLOUDY; Urine Bilirubin NEGATIVE (NEG); Urine Blood NEGATIVE (NEG); Urine Color YELLOW; Urine Glucose NEGATIVE (NEG); Urine Protein NEGATIVE (NEG); Urine Specific Gravity 1.015 (1.005-1.030); Urine Urobilinogen 0.2 mg/dL (0.2-1.0)
[2017-12-15 06:12] LABS: Urine Bacteria >50 /HPF (<20); Urine RBC NONE SEEN /HPF (NONE SEEN)
[2017-12-15 06:13] LABS: Urine Culture Reflex Order NOT NEEDED
[2017-12-15] MEDS: PANTOPRAZOLE 40MG TABLET PO SCH (06:24)
[2017-12-15] MEDS: CIPROFLOXACIN 0.3% ML OPHTH OPTH SCH ×2 (08:00→20:36)
[2017-12-15] MEDS: ARFORMOTEROL TARTRATE 15 MCG/2 ML VIAL.NEB NEB SCH ×2 (08:00→20:23)
[2017-12-15] MEDS: LISINOPRIL 20 MG TAB PO SCH (08:34)
[2017-12-15] MEDS: ASPIRIN EC 81 MG TAB PO SCH (08:35)
[2017-12-15] MEDS: METOPROLOL TAR 50 MG TAB PO SCH (08:35)
[2017-12-15] MEDS: levoFLOXacin 500 MG TAB PO SCH (08:35)
[2017-12-15] MEDS: VANCOMYCIN ORAL SOLN 250 MG/5 ML OSYR PO SCH ×4 (08:36→20:36)
[2017-12-15] MEDS: FUROSEMIDE 40 MG TABLET PO SCH (08:36)
[2017-12-15] MEDS: predniSONE 20 MG TAB PO SCH (08:36)
[2017-12-15] MEDS: SERTRALINE HCL 50 MG TAB PO SCH (08:36)
[2017-12-15] MEDS: DIPHENHYDRAMINE 25 MG TAB/CAP PO PRN ×2 (08:36→16:41)
[2017-12-15] MEDS: AMLODIPINE 5 MG TAB PO SCH (08:36)
[2017-12-15] MEDS: GABAPENTIN 400 MG CAP PO SCH ×2 (08:36→20:35)
[2017-12-15] MEDS: ALBUTEROL INHALER 60 PUFF/8 GM IH SCH ×4 (08:39→20:37)
--- NOTE | 2017-12-15 10:23 | FAST ---
SHIFT START DATE/TIME: 12/15/2017 07:00 (CDT) SHIFT END DATE/TIME: 12/15/2017 19:00 (CDT) NAME ELIJAH ORTEGA DATE OF : 1950 DATE OF ADMISSION: 12/13/2017 18:47 (CDT) PHONE: AGE: 67 N# [id number] GENDER: Female ENCOUNTER PHYSICIAN: Dr. Pancho De Santiago M.D. ADMISSION DIAGNOSIS: - Medically Complex Conditions 17 - Other Medically Complex Conditions (17.9) colitis. hypertension. chronic Afib. CHF systolic. COPD. Anxiety. EATING: EATING - STEP 1: Does the patient require assistance when eating? Yes. EATING - STEP 2: Does the patient require the assistance of a helper? Yes. EATING - STEP 3: Does the patient perform half or more of the eating tasks? Yes. EATING - STEP 4: Does the patient need only supervision, cuing, coaxing OR help to apply an orthosis OR help to cut fo od, open containers, pour liquids, or butter bread? Yes. EATING - SCORE: 5-SUP GROOMING: Activity did not occur on this shift GROOMING - SCORE: 0-UNK BATHING: Activity did not occur on this shift BATHING - SCORE: 0-UNK DRESSING - UPPER BODY: Patient is not dressing in public clothing ARTICLES SCORE Total number of steps: 0 DRESSING - UPPER BODY - SCORE: 0-UNK DRESSING - LOWER BODY: Activity did not occur on this shift ARTICLES SCORE Total number of steps: 0 DRESSING - LOWER BODY - SCORE: 0-UNK TOILETING: TOILETING - STEP 1: Does the patient require assistance with toileting? Yes. TOILETING - STEP 2: Does the patient require the assistance of a helper? Yes. TOILETING - STEP 3: How much assistance does the patient require from the helper? Hands-on assistance from the helper TOILETING - STEP 4: Of the 3 tasks: 1) Adjusting clothing prior to use, 2) Cleansing of perineal area, 3) Adjusting clot brooks after use; How many tasks does the patient perform WITHOUT assistance of the helper? Three tasks with steadying assistance from the helper TOILETING - SCORE: 4-MIN BLADDER MANAGEMENT: BLADDER MANAGEMENT - STEP 1: Does the patient control the bladder completely and intentionally without equipment or devices or med ications, and is always continent? No. BLADDER MANAGEMENT - STEP 2: Does the patient require the assistance of a helper? No, patient requires and independently uses an a ssistive device, such as a urinal, bedpan, bedside commode, catheter, absorbent pad, or collecting de vice BLADDER MANAGEMENT - SCORE: 6-LUIS ARMANDO BOWEL MANAGEMENT: Activity did not occur on this shift BOWEL MANAGEMENT - SCORE: 7-IND TRANSFERS: BED, CHAIR, WHEELCHAIR: TRANSFERS: BED, CHAIR, WHEELCHAIR - STEP 1: Does the patient require assistance with bed, chair, or wheelchair transfers? Yes. TRANSFERS: BED, CHAIR, WHEELCHAIR - STEP 2: Does the patient require the assistance of a helper? Yes. TRANSFERS: BED, CHAIR, WHEELCHAIR - STEP 3: How much assistance does the patient require from the helper? Lifting of the legs TRANSFERS: BED, CHAIR, WHEELCHAIR - STEP 4: How many legs does the patient require the helper to lift? both legs TRANSFERS: BED, CHAIR, WHEELCHAIR - SCORE: 3-MOD TRANSFERS: TOILET: TRANSFERS: TOILET - STEP 1: Does the patient require assistance with toilet transfers? Yes. TRANSFERS: TOILET - STEP 2: Does the patient require the assistance of a helper? Yes. TRANSFERS: TOILET - STEP 3: How much assistance does the patient require from the helper? Patient performs half or more of the tr ansferring tasks TRANSFERS: TOILET - STEP 4: Does the patient need only incidental help such as contact guard or steadying during toilet transfer? Yes. TRANSFERS: TOILET - SCORE: 4-MIN TRANSFERS: SHOWER: Activity did not occur on this shift TRANSFERS: SHOWER - SCORE: 0-UNK TRANSFERS: TUB: Activity did not occur on this shift TRANSFERS: TUB - SCORE: 0-UNK LOCOMOTION: WALK: Activity did not occur on this shift LOCOMOTION: WALK - SCORE: 0-UNK LOCOMOTION: WHEELCHAIR: Activity did not occur on this shift LOCOMOTION: WHEELCHAIR - SCORE: 0-UNK COMPREHENSION: COMPREHENSION: TYPE: Both COMPREHENSION - STEP 1: Does the patient require help to understand complex and abstract ideas (such as current events, finan sebastian, discharge planning, medical issues, relationships, etc)? No. COMPREHENSION - STEP 2: Does the patient need extra time, require an assistive device (such as glasses for visual comprehensi on or a hearing aid for auditory comprehension) or does s/he have mild difficulty understanding compl ex and abstract information? Yes. COMPREHENSION - SCORE: 6-LUIS ARMANDO EXPRESSION EXPRESSION: TYPE: Both EXPRESSION - STEP 1: Does the patient require help expressing complex and abstract ideas (such as current events, finances , discharge planning, medical issues, relationships, etc)? No. EXPRESSION - STEP 2: Does the patient need extra time, require an assistive device (such as augmentive communication syste m or a communication board), OR does s/he have mild difficulty expressing complex and abstract ideas (including mild dysarthria or mild word-find problems)? Yes. EXPRESSION - SCORE: 6-LUIS ARMANDO SOCIAL INTERACTION: SOCIAL INTERACTION - STEP 1: Does the patient require a helper to interact with others in social and therapeutic situations? No. SOCIAL INTERACTION - STEP 2: Does the patient need extra time in social situations, OR does s/he interact with staff, other patien ts, and family members ONLY in structured environments, OR does s/he require medication for social in teraction? Yes, patient needs extra time SOCIAL INTERACTION - SCORE: 6-LUIS ARMANDO PROBLEM SOLVING: PROBLEM SOLVING - STEP 1: Does the patient need help to solve complex problems such as managing a checking account or confronti ng interpersonal problems? No. PROBLEM SOLVING - STEP 2: Does the patient require extra time to make decisions or solve problems, OR does s/he have slight dif ficulty reading, initiating, or self-correcting in unfamiliar situations? No. PROBLEM SOLVING - SCORE: 7-IND MEMORY: MEMORY - STEP 1: Does the patient need help to remember frequently encountered people, daily routines, and executing r equests? No. MEMORY - STEP 2: Does the patient have slight difficulty recognizing frequently encountered people, daily routines, or executing requests without the need for repetition or using self-initiated or environmental cues to remember? No. MEMORY - SCORE: 7-IND SIGNATURE PANEL: The following modified sections: Eating - Score, Grooming - Score, Bathing - Score, Dressing - Upper Body - Score, Dressing - Lower Body - Score, Toileting - Score, Bladder Management - Score, Bowel Man agement - Score, Transfers: Bed, Chair, Wheelchair - Score, Transfers: Toilet - Score, Transfers: Yuli wer - Score, Transfers: Tub - Score, Locomotion: Walk - Score, Locomotion: Wheelchair - Score, Compre hension - Score, Expression - Score, Social Interaction - Score, Problem Solving - Score, Memory - Sc ore were [electronically] signed by Endy Strong on Sun Dec 15 2017 10:22:25 T-0500 (Central Daylight Time)
--- NOTE | 2017-12-15 12:29 | R.HP ---
FACILITY: [facility] ENCOUNTER DATE AND TIME: 12/15/2017 12:24 (CDT) MR#: [id number] NAME ELIJAH ORTEGA ADDRESS: [place] [id number] CITY: [place] [address] [address] PHONE: DATE OF : 1950 AGE: 67 SSN# [id number] GENDER: Female DEXTERITY Right-handed MARITAL STATUS RACE White PRE-HOSPITAL LIVING SETTING 01 - Home (private home/apt. board/care, assisted living, skilled nursing, transitional living) PRE-HOSPITAL LIVING WITH Family/Relatives ENCOUNTER PHYSICIAN: Dr. Pancho De Santiago M.D. REFERRING DOCTOR: alondra Rausch DATE OF ADMISSION: 12/13/2017 18:47 (CDT) REFERRING FACILITY [facility] HOME TYPE AND DETAILS: Type of home: single family house # of steps to enter the residence: 4 # of steps within the residence: 0 # of levels in the residence: 1 ADMISSION DIAGNOSIS: colitis hypertension chronic Afib CHF systolic COPD Anxiety ONSET DATE: 12/10/2017 PRIMARY DIAGNOSIS-RELATED SURGERIES: No surgeries related to the primary diagnosis were performed. SECONDARY/COMORBID DIAGNOSES (TIERED): - N/A asthma diarrhea Falls HISTORY OF PRESENT ILLNESS (HPI): Pt. is a 67 yo Right-handed white female. On 12/10/2017 she was admitted to [facility] with diagnosis colitis. Her impairment category is Medically Complex Conditions 17 - Other Medically Complex Conditions (17. 9). Pre-morbidly, Pt. was independent/mod-I in Sphincter Control, Communication, Social Cognition, Self-C are, and Locomotion; and she had good Sphincter Control. Currently, she has deficits of Endurance, Safety Awareness, Transfers Control, Communication, Social Cognition, Balance, Locomotion, and Self-Care. Pt. is now referred to [facility] for acute in-patient rehabilitation in order to maximize patient's functional independence in activities of daily living, strength, ROM, and mobi lity. Patient has realistic goal of being discharged at assistance level 6-Zainab to reside at Home with Fam genevieve/Relatives. MEDICATION ALLERGIES: amitriptyline HCI Ciprofloxacin Phenobarbital ENVIRONMENTAL ALLERGIES: - Substance Allergies None Known - Other Allergies None Known PAST MEDICAL HISTORY: Falls asthma diarrhea FAMILY HISTORY: Family history is not contributory. SOCIAL HISTORY: - Home Living Family/Relatives REVIEW OF SYSTEMS: - Gen No Chills No Fatigue No Fever - Eyes No Double Vision No itchiness - ENMT No Difficulty Swallowing - CVS No Chest Discomfort No Chest Pain Fatigue No Weight Gain - Resp No Cough No Shortness of Breath - GI Continent No Abdominal Pain No Constipation No Diarrhea - Continent No Kidney Pain No Painful Urination No Urinary Urgency - MSK No Joint Pain Muscle Cramps Stiffness - Skin No Itching No Rash No Suspicious Lesions - Neuro Coordination Difficulty No Difficulty with Concentration No Memory Loss No Seizures Weakness - Psych No Anxiety No Depression No HIV Exposure No Persistent Infections No Seasonal Allergies - Endo No Cold/Heat Intolerance No Excessive Hunger No Excessive Thirst No Excessive Urination PHYSICAL EXAM - Gen Alert and awake Lying in bed No apparent distress Oriented to: person, time, and place - Skin No skin breakdown. Normacephalic - Eyes No abnormalities - ENMT No abnormalities - Neck No abnormalities - CVS RRR - Chest Clear - Abd Soft - GI Non distended Deferred - No abnormalities - Ext No significant edema - MSK 4/5 weakness in both lower extremities. - Neuro No focal deficits - Psych No abnormalities VITAL SIGNS Temperature: 98.3F SBP/DBP: 140/81 Pulse: 80 Resp: 18 NURSING: - Shower allowing shower ACTIVITIES OOB only with supervision FUNCTIONAL STATUS: - Self-Care A. Eating Ind Ind B. Grooming Ind Ind C. Bathing Joanna maxA D. Dressing - Upper sup sup E. Dressing - Lower Joanna maxA F. Toileting Dep Dep - Sphincter Control G: Bladder control Dep Dep H: Bowel control Dep Dep - Transfers Control I. Bed/Chair/Wheelchair sup modA J. Toilet sup modA K. Tub/Shower sup modA - Locomotion L. Walk/Wheelchair (B) Zainab maxA M. Stairs Joanna ADNO - Communication N. Comprehension (B) Ind sup O. Expression (B) Ind sup - Social Cognition P. Social Interaction Ind sup Q. Problem Solving Ind sup R. Memory Ind sup - Endurance Poor - Balance Fair - Safety Awareness Poor CURRENT FUNC. DEFICITS: Endurance, Safety Awareness, Transfers Control, Communication, Social Cognition, Balance, Locomotion, and Self-Care ASSESSMENT: Pt. is a 67 yo Right-handed white female.On 12/10/2017 she was admitted to [facility] with diagnosis colitis.Her impairment category is Medically Complex Conditions 17 - Other Med ically Complex Conditions (17.9).Pre-morbidly, Pt. was independent/mod-I in Sphincter Control, Commun ication, Social Cognition, Self-Care, and Locomotion; and she had good Sphincter Control.Currently, s he has deficits of Endurance, Safety Awareness, Transfers Control, Communication, Social Cognition, B alance, Locomotion, and Self-Care.Pt. is now referred to [facility] for acute in-patient rehabilitation in order to maximize patient's functional independence in activities of ruddy ly living, strength, ROM, and mobility.- Rehab Goal Patient has realistic goal of being discharged at assistance level 6-Zainab to reside at Home with Fam genevieve/Relatives. REHAB PLAN: - Physical Therapy Gait dysfunction - to improve, our physical therapists will perform initial evaluation of pt's status upon admission and devise an individualized program for Gait Training, and Wheel Chair mobility Inability to transfer - to improve, our physical therapists will perform initial evaluation of pt's s tatus upon admission and devise an individualized program for Bed mobility Need for home safety evaluation - to improve, our physical therapists will perform initial evaluation of pt's status upon admission and devise an individualized program for Home Evaluation Need in caregiver upon discharge - to improve, our physical therapists will perform initial evaluatio n of pt's status upon admission and devise an individualized program for Caregiver Training New precaution - to improve, our physical therapists will perform initial evaluation of pt's status u jeannette admission and devise an individualized program for Patient precaution education Edema - to improve, our physical therapists will perform initial evaluation of pt's status upon admi ssion and devise an individualized program for Elevation Training, and Lymphedema Therapy Poor balance - to improve, our physical therapists will perform initial evaluation of pt's status upo n admission and devise an individualized program for Balance Training Poor endurance - to improve, our physical therapists will perform initial evaluation of pt's status u jeannette admission and devise an individualized program for Endurance Training Weakness - to improve, our physical therapists will perform initial evaluation of pt's status upon ad mission and devise an individualized program for Aquatic Therapy, Neuromuscular Reeducation, and Stre ngthening Achieving independence - to improve, our physical therapists will perform initial evaluation of pt's status upon admission and devise an individualized program for Community Reintegration Activities - Occupational Therapy ADL deficits - to improve, our occupation therapists will perform initial evaluation of pt's status u jeannette admission and devise an individualized program for Bathing, Bed mobility, Community Reintegration , Cooking, Dressing, Eating, Fine Motor Skills, Grooming, Homemaking, Kitchen Mobility, Laundry, Nisha ent Education, Safety Awareness, Splinting - Positioning, Transfers(Toilet, Tub, Shower), and Wheel C hair Management Cognitive deficits - to improve, our occupation therapists will perform initial evaluation of pt's st atus upon admission and devise an individualized program for Cognition - orientation Need for medication care manager - to improve, our occupation therapists will perform initial evaluation of pt's s tatus upon admission and devise an individualized program for Caregiver Training Weakness - to improve, our occupation therapists will perform initial evaluation of pt's status upon admission and devise an individualized program for Aquatic Therapy, Balance, Endurance, UE ROM, and U E strengthening MEDICAL PLAN: - Diet Type Start Regular - Diet - Liquid Texture Start Regular - Tube Feed Start N/A - Diet - Solid Texture Regular - Shower shower DISCHARGE PLAN: - Estimated Length of Stay (days) 13. - Consensus on plan Discharge plan has been discussed with primary caregiver. Patient/Family is in agreement with the juan miguel n. Primary caregiver is in agreement with the plan. - Patient/Family Goals Return home with assistance. - Planned Living Setting Upon Discharge Home, to live with Family/Relatives. SIGNATURE PANEL: (CDT)
--- NOTE | 2017-12-15 12:30 | PAPE ---
PATIENT: [facility] MR# [id number] REFERRING DOCTOR alondra Rausch EVALUATION DATE AND TIME 12/15/2017 12:28 (CDT) NAME ELIJAH ORTEGA DATE OF 1950 AGE 67 PHONE SSN# [id number] GENDER female EVALUATING PHYSICIAN Dr. Pancho De Santiago M.D. ADMISSION DIAGNOSIS: colitis hypertension chronic Afib CHF systolic COPD Anxiety ONSET DATE 12/10/2017 SECONDARY/COMORBID DIAGNOSES TIERED: - N/A asthma diarrhea Falls POST-ADMISSION FUNCTIONAL/MEDICAL STATUS: - Bladder Same Bladder control device used: diaper Same accident frequency: Ind - No accidents in the past 7 days - Bowel Same Bowel control device used: diaper Same accident frequency: Ind - No accidents in the past 7 days - Walking Same score based on distance walked: 0(N/A) - Wheelchair Same score based on distance traveled: 0(N/A) STATUS CHANGE EVALUATION: No change in Functional or Medical Status is identified compared with Pre-Admission screening. PATIENT NEEDS CLOSE MEDICAL SUPERVISION BY A REHABILITATION PHYSICIAN FOR: Bowel and Bladder Management Coordination of Treatment Team Medical and Co-Morbidity Management PATIENT REQUIRES 24X7 REHAB NURSING FOR MEDICAL AND FUNCTIONAL MGT. OF THE FOLLOWING DEFICITS: ADL's Ambulation Bowel and Bladder Management Cognition Communication Disease Management Medication Management Patient/Family Education Providing Safe Environment Transfers PATIENT REQUIRES INTENSIVE, COORDINATED INTERDISCIPLINARY APPROACH TO REHAB: Arranging Home Equipment/Services Discharge Planning Family Intervention/Training Video Surveillance Technician/Case Management LIST OF IDENTIFIED AND POTENTIAL PROBLEMS: Alteration in leisure activities Bladder, Incontinence Bowel, Incontinence Fluid volume change related to dehydration Infection, Actual or Potential Mobility Impaired Pain, Alteration in Comfort Self Care Deficit Skin Integrity, Actual or Potential Urinary Tract Infection (UTI), Actual or Potential RISK FOR COMPLICATIONS - Asthma Hypoxia. Metabolic acidosis. Worsening of asthma. INTERVENTIONS - Asthma ABG's. Inhalers. Medications. Nebulizers. Respiratory therapy. X-Rays. PATIENT COULD BE AT RISK FOR COMPLICATIONS FROM ADVERSE MEDICAL CONDITIONS DUE TO HIS/HER COMORBIDITI ES AND THE RIGORS OF THE INTENSIVE REHABILLITATION PROGRAM. METHODS OR INTERVENTIONS TO AVOID COMPLIC ATIONS INCLUDE: - Infection Clinical staff to assess and manage the signs and symptoms of infection including fever, redness, war mth, etc. - Urinary Tract Infection - Falls Patient will be evaluated for Fall Precautions and will be placed on Fall Precautions as indicated pe r protocol. - Skin Breakdown Nursing will assess skin daily using assessment tool and will place on Skin Breakdown Precautions as indicated per protocol. - Pain Clinical staff may employ non-medication methods such as massage, distraction, decrease stimulus, etc . as needed. Clinical staff will assess patient's pain level every shift per protocol to assess and e nsure pain management effectiveness. Medications will be given and the pain level re-assessed. PRELIMINARY PLAN OF CARE: - Physical Therapy Patient needs Physical Therapy for a daily minimum of 1.5 hours at least 5 out of 7 days, to improve: Mobility, Strengthening, Transfers, Stretching, ROM, Endurance, Ability to manage stairs, Gait, and Balance. - Rehabilitation Nursing Patient requires 24x7 Rehabilitation Nursing for: Pain Issues, Identifying and preventing risk factor s, Monitoring and reporting current medical conditions, Assisting with ambulation and transfer, Ismael ting with all ADL-s, Teaching patients about disease process and medications, Family teaching, Provid ing safe environment, Bowel and Bladder Issues, Skin Integrity, and Medication Management. Patient needs Video Surveillance Technician and/or Case Management for: Discharge Planning, Arranging Home Equipmen t or Services, and Family Interventions. - Dietary and Nutrition Services Patient needs Dietary and Nutrition Services for: Adequate Nutrition, Nutritional Supplements, and Nu tritional Education. - Occupational Therapy Patient needs Occupational Therapy for a daily minimum of 1.5 hours at least 5 out of 7 days, to impr ove Activities of Daily Living, including: Eating, Grooming, Bathing, Dressing, Toileting, Toilet Tra nsfers, Community Reintegration, Higher functional activities, Adaptive Equipment, Splinting, Househo ld Tasks, and Other activities as determined. POTENTIAL FUNCTIONAL GOALS FOR PATIENT TO ACHIEVE BY DISCHARGE: - Safety Precaution Patient will remain free from falls or injury at time of discharge. - Bed Mobility Patient will perform bed mobility at 4-Joanna level of assistance. - Transfers Patient will complete transfers from bed to chair at 4-Joanna level of assistance. - Mobility Patient will ambulate 150 ft with 4-Joanna level of assistance with RW. PATIENT REHAB POTENTIAL Expected level of measurable improvement will be of a practical value to patient's functional capacit y or adaptations to impairments Has a viable Discharge Plan Medically appropriate; condition is sufficiently stable to participate in intensive rehab program Patient is able and expected to receive 3 hours of individualized therapy daily on at least 5 of ever y 7 days Patient's prognosis for significant practical improvement within a reasonable period of time appears Good DISCHARGE PLAN: - Estimated Length of Stay (days) 13. - Consensus on plan Discharge plan has been discussed with primary caregiver. Patient/Family is in agreement with the juan miguel n. Primary caregiver is in agreement with the plan. - Patient/Family Goals Return home with assistance. - Planned Living Setting Upon Discharge Home, to live with Family/Relatives. CONCLUSION ON REHABILITATION NECESSITY: I have evaluated patient's pre-admission functional status and, comparing it to the patient's post-ad mission functional status now, I conclude that the pre-admission assessment was accurate. Patient's c ondition on admission supports the medical necessity of admission to IRF. It is safe to proceed with patient's therapy program. SIGNATURE PANEL: (CDT)
[2017-12-15] MEDS: clonazePAM 1 MG TAB PO PRN (17:28)
[2017-12-15] MEDS: PROMETHAZINE 25 MG TABLET PO PRN (18:13)
[2017-12-15] MEDS: APIXABAN 2.5 MG TABLET PO SCH (20:35)
--- NOTE | 2017-12-16 02:13 | FAST ---
SHIFT START DATE/TIME: 12/15/2017 19:00 (CDT) SHIFT END DATE/TIME: 12/16/2017 07:00 (CDT) NAME ELIJAH ORTEGA DATE OF : 1950 DATE OF ADMISSION: 12/13/2017 18:47 (CDT) PHONE: AGE: 67 N# [id number] GENDER: Female ENCOUNTER PHYSICIAN: Dr. Pancho De Santiago M.D. ADMISSION DIAGNOSIS: - Medically Complex Conditions 17 - Other Medically Complex Conditions (17.9) colitis. hypertension. chronic Afib. CHF systolic. COPD. Anxiety. EATING: EATING - STEP 1: Does the patient require assistance when eating? No. EATING - SCORE: 7-IND GROOMING: Activity did not occur on this shift GROOMING - SCORE: 0-UNK BATHING: Activity did not occur on this shift BATHING - SCORE: 0-UNK DRESSING - UPPER BODY: Activity did not occur on this shift ARTICLES SCORE Total number of steps: 0 DRESSING - UPPER BODY - SCORE: 0-UNK DRESSING - LOWER BODY: Activity did not occur on this shift ARTICLES SCORE Total number of steps: 0 DRESSING - LOWER BODY - SCORE: 0-UNK TOILETING: TOILETING - STEP 1: Does the patient require assistance with toileting? Yes. TOILETING - STEP 2: Does the patient require the assistance of a helper? Yes. TOILETING - STEP 3: How much assistance does the patient require from the helper? Only supervision TOILETING - SCORE: 5-SUP BLADDER MANAGEMENT: BLADDER MANAGEMENT - STEP 1: Does the patient control the bladder completely and intentionally without equipment or devices or med ications, and is always continent? No. BLADDER MANAGEMENT - STEP 2: Does the patient require the assistance of a helper? Yes. BLADDER MANAGEMENT - STEP 3: How much assistance does the patient require from the helper? Only supervision, stand-by, cuing, or c oaxing BLADDER MANAGEMENT - SCORE: 5-SUP BOWEL MANAGEMENT: Activity did not occur on this shift BOWEL MANAGEMENT - SCORE: 7-IND TRANSFERS: BED, CHAIR, WHEELCHAIR: TRANSFERS: BED, CHAIR, WHEELCHAIR - STEP 1: Does the patient require assistance with bed, chair, or wheelchair transfers? Yes. TRANSFERS: BED, CHAIR, WHEELCHAIR - STEP 2: Does the patient require the assistance of a helper? Yes. TRANSFERS: BED, CHAIR, WHEELCHAIR - STEP 3: How much assistance does the patient require from the helper? Lifting of the legs TRANSFERS: BED, CHAIR, WHEELCHAIR - STEP 4: How many legs does the patient require the helper to lift? one leg TRANSFERS: BED, CHAIR, WHEELCHAIR - SCORE: 4-MIN TRANSFERS: TOILET: TRANSFERS: TOILET - STEP 1: Does the patient require assistance with toilet transfers? Yes. TRANSFERS: TOILET - STEP 2: Does the patient require the assistance of a helper? Yes. TRANSFERS: TOILET - STEP 3: How much assistance does the patient require from the helper? Only supervision, cuing, coaxing, OR he lp to set out transfer equipment or to lock brakes and/or lift foot rests TRANSFERS: TOILET - SCORE: 5-SUP TRANSFERS: SHOWER: Activity did not occur on this shift TRANSFERS: SHOWER - SCORE: 0-UNK TRANSFERS: TUB: Activity did not occur on this shift TRANSFERS: TUB - SCORE: 0-UNK LOCOMOTION: WALK: Activity did not occur on this shift LOCOMOTION: WALK - SCORE: 0-UNK LOCOMOTION: WHEELCHAIR: Activity did not occur on this shift LOCOMOTION: WHEELCHAIR - SCORE: 0-UNK COMPREHENSION: COMPREHENSION: TYPE: Both COMPREHENSION - STEP 1: Does the patient require help to understand complex and abstract ideas (such as current events, finan sebastian, discharge planning, medical issues, relationships, etc)? No. COMPREHENSION - STEP 2: Does the patient need extra time, require an assistive device (such as glasses for visual comprehensi on or a hearing aid for auditory comprehension) or does s/he have mild difficulty understanding compl ex and abstract information? Yes. COMPREHENSION - SCORE: 6-LUIS ARMANDO EXPRESSION EXPRESSION: TYPE: Both EXPRESSION - STEP 1: Does the patient require help expressing complex and abstract ideas (such as current events, finances , discharge planning, medical issues, relationships, etc)? No. EXPRESSION - STEP 2: Does the patient need extra time, require an assistive device (such as augmentive communication syste m or a communication board), OR does s/he have mild difficulty expressing complex and abstract ideas (including mild dysarthria or mild word-find problems)? Yes. EXPRESSION - SCORE: 6-LUIS ARMANDO SOCIAL INTERACTION: SOCIAL INTERACTION - STEP 1: Does the patient require a helper to interact with others in social and therapeutic situations? No. SOCIAL INTERACTION - STEP 2: Does the patient need extra time in social situations, OR does s/he interact with staff, other patien ts, and family members ONLY in structured environments, OR does s/he require medication for social in teraction? Yes, patient requires medication for social interaction SOCIAL INTERACTION - SCORE: 6-LUIS ARMANDO PROBLEM SOLVING: PROBLEM SOLVING - STEP 1: Does the patient need help to solve complex problems such as managing a checking account or confronti ng interpersonal problems? No. PROBLEM SOLVING - STEP 2: Does the patient require extra time to make decisions or solve problems, OR does s/he have slight dif ficulty reading, initiating, or self-correcting in unfamiliar situations? Yes, patient needs extra ti me. PROBLEM SOLVING - SCORE: 6-LUIS ARMANDO MEMORY: MEMORY - STEP 1: Does the patient need help to remember frequently encountered people, daily routines, and executing r equests? No. MEMORY - STEP 2: Does the patient have slight difficulty recognizing frequently encountered people, daily routines, or executing requests without the need for repetition or using self-initiated or environmental cues to remember? Yes. MEMORY - SCORE: 6-LUIS ARMANDO SIGNATURE PANEL: The following modified sections: Eating - Score, Grooming - Score, Bathing - Score, Dressing - Upper Body - Score, Dressing - Lower Body - Score, Toileting - Score, Bladder Management - Score, Bowel Man agement - Score, Transfers: Bed, Chair, Wheelchair - Score, Transfers: Toilet - Score, Transfers: Yuli wer - Score, Transfers: Tub - Score, Locomotion: Walk - Score, Locomotion: Wheelchair - Score, Compre hension - Score, Expression - Score, Social Interaction - Score, Problem Solving - Score, Memory - Sc ore were [electronically] signed by Elizabeth Bartlett on SatDec 16 2017 02:12:50 GMT-0500 (Central Day light Time)
[2017-12-16] MEDS: Oxycodone HCl/Acetaminophen 1 TAB TAB PO PRN ×5 (05:26→21:13)
[2017-12-16] MEDS: PANTOPRAZOLE 40MG TABLET PO SCH (07:00)
[2017-12-16] MEDS: CIPROFLOXACIN 0.3% ML OPHTH OPTH SCH ×2 (08:00→20:00)
[2017-12-16] MEDS: FUROSEMIDE 40 MG TABLET PO SCH ×2 (08:00→09:02)
[2017-12-16] MEDS: LISINOPRIL 20 MG TAB PO SCH (08:00)
[2017-12-16] MEDS: ARFORMOTEROL TARTRATE 15 MCG/2 ML VIAL.NEB NEB SCH ×2 (08:52→19:33)
[2017-12-16] MEDS: ALBUTEROL INHALER 60 PUFF/8 GM IH SCH ×4 (09:00→21:00)
[2017-12-16] MEDS: GABAPENTIN 400 MG CAP PO SCH ×2 (09:02→21:14)
[2017-12-16] MEDS: predniSONE 20 MG TAB PO SCH (09:02)
[2017-12-16] MEDS: levoFLOXacin 500 MG TAB PO SCH (09:02)
[2017-12-16] MEDS: ASPIRIN EC 81 MG TAB PO SCH (09:03)
[2017-12-16] MEDS: APIXABAN 2.5 MG TABLET PO SCH ×2 (09:03→21:14)
[2017-12-16] MEDS: SERTRALINE HCL 50 MG TAB PO SCH (09:03)
--- NOTE | 2017-12-16 11:11 | FAST ---
SHIFT START DATE/TIME: 12/16/2017 07:00 (CDT) SHIFT END DATE/TIME: 12/16/2017 19:00 (CDT) NAME ELIJAH ORTEGA DATE OF : 1950 DATE OF ADMISSION: 12/13/2017 18:47 (CDT) PHONE: AGE: 67 N# [id number] GENDER: Female ENCOUNTER PHYSICIAN: Dr. Pancho De Santiago M.D. ADMISSION DIAGNOSIS: - Medically Complex Conditions 17 - Other Medically Complex Conditions (17.9) colitis. hypertension. chronic Afib. CHF systolic. COPD. Anxiety. EATING: EATING - STEP 1: Does the patient require assistance when eating? Yes. EATING - STEP 2: Does the patient require the assistance of a helper? Yes. EATING - STEP 3: Does the patient perform half or more of the eating tasks? Yes. EATING - STEP 4: Does the patient need only supervision, cuing, coaxing OR help to apply an orthosis OR help to cut fo od, open containers, pour liquids, or butter bread? Yes. EATING - SCORE: 5-SUP GROOMING: Oral care GROOMING - STEP 1: Does the patient require assistance when grooming? Yes. GROOMING - STEP 2: Does the patient require the assistance of a helper? Yes. GROOMING - STEP 3: How much assistance does the patient require from the helper? Only prior equipment preparation/set up from the helper GROOMING - SCORE: 5-SUP BATHING: Activity did not occur on this shift BATHING - SCORE: 0-UNK DRESSING - UPPER BODY: Activity did not occur on this shift ARTICLES SCORE Total number of steps: 0 DRESSING - UPPER BODY - SCORE: 0-UNK DRESSING - LOWER BODY: Activity did not occur on this shift ARTICLES SCORE Total number of steps: 0 DRESSING - LOWER BODY - SCORE: 0-UNK TOILETING: TOILETING - STEP 1: Does the patient require assistance with toileting? Yes. TOILETING - STEP 2: Does the patient require the assistance of a helper? Yes. TOILETING - STEP 3: How much assistance does the patient require from the helper? Hands-on assistance from the helper TOILETING - STEP 4: Of the 3 tasks: 1) Adjusting clothing prior to use, 2) Cleansing of perineal area, 3) Adjusting clot brooks after use; How many tasks does the patient perform WITHOUT assistance of the helper? Three tasks with steadying assistance from the helper TOILETING - SCORE: 4-MIN BLADDER MANAGEMENT: BLADDER MANAGEMENT - STEP 1: Does the patient control the bladder completely and intentionally without equipment or devices or med ications, and is always continent? No. BLADDER MANAGEMENT - STEP 2: Does the patient require the assistance of a helper? No, patient requires and independently uses an a ssistive device, such as a urinal, bedpan, bedside commode, catheter, absorbent pad, or collecting de vice BLADDER MANAGEMENT - SCORE: 6-LUIS ARMANDO BOWEL MANAGEMENT: Activity did not occur on this shift BOWEL MANAGEMENT - SCORE: 7-IND TRANSFERS: BED, CHAIR, WHEELCHAIR: TRANSFERS: BED, CHAIR, WHEELCHAIR - STEP 1: Does the patient require assistance with bed, chair, or wheelchair transfers? Yes. TRANSFERS: BED, CHAIR, WHEELCHAIR - STEP 2: Does the patient require the assistance of a helper? Yes. TRANSFERS: BED, CHAIR, WHEELCHAIR - STEP 3: How much assistance does the patient require from the helper? Steadying/guiding assistance TRANSFERS: BED, CHAIR, WHEELCHAIR - SCORE: 4-MIN TRANSFERS: TOILET: TRANSFERS: TOILET - STEP 1: Does the patient require assistance with toilet transfers? Yes. TRANSFERS: TOILET - STEP 2: Does the patient require the assistance of a helper? Yes. TRANSFERS: TOILET - STEP 3: How much assistance does the patient require from the helper? Patient performs half or more of the tr ansferring tasks TRANSFERS: TOILET - STEP 4: Does the patient need only incidental help such as contact guard or steadying during toilet transfer? Yes. TRANSFERS: TOILET - SCORE: 4-MIN TRANSFERS: SHOWER: Activity did not occur on this shift TRANSFERS: SHOWER - SCORE: 0-UNK TRANSFERS: TUB: Activity did not occur on this shift TRANSFERS: TUB - SCORE: 0-UNK LOCOMOTION: WALK: Activity did not occur on this shift LOCOMOTION: WALK - SCORE: 0-UNK LOCOMOTION: WHEELCHAIR: Activity did not occur on this shift LOCOMOTION: WHEELCHAIR - SCORE: 0-UNK COMPREHENSION: COMPREHENSION: TYPE: Both COMPREHENSION - STEP 1: Does the patient require help to understand complex and abstract ideas (such as current events, finan sebastian, discharge planning, medical issues, relationships, etc)? No. COMPREHENSION - STEP 2: Does the patient need extra time, require an assistive device (such as glasses for visual comprehensi on or a hearing aid for auditory comprehension) or does s/he have mild difficulty understanding compl ex and abstract information? Yes. COMPREHENSION - SCORE: 6-LUIS ARMANDO EXPRESSION EXPRESSION: TYPE: Both EXPRESSION - STEP 1: Does the patient require help expressing complex and abstract ideas (such as current events, finances , discharge planning, medical issues, relationships, etc)? No. EXPRESSION - STEP 2: Does the patient need extra time, require an assistive device (such as augmentive communication syste m or a communication board), OR does s/he have mild difficulty expressing complex and abstract ideas (including mild dysarthria or mild word-find problems)? No. EXPRESSION - SCORE: 7-IND SOCIAL INTERACTION: SOCIAL INTERACTION - STEP 1: Does the patient require a helper to interact with others in social and therapeutic situations? No. SOCIAL INTERACTION - STEP 2: Does the patient need extra time in social situations, OR does s/he interact with staff, other patien ts, and family members ONLY in structured environments, OR does s/he require medication for social in teraction? Yes, patient needs extra time SOCIAL INTERACTION - SCORE: 6-LUIS ARMANDO PROBLEM SOLVING: PROBLEM SOLVING - STEP 1: Does the patient need help to solve complex problems such as managing a checking account or confronti ng interpersonal problems? No. PROBLEM SOLVING - STEP 2: Does the patient require extra time to make decisions or solve problems, OR does s/he have slight dif ficulty reading, initiating, or self-correcting in unfamiliar situations? Yes, patient needs extra ti me. PROBLEM SOLVING - SCORE: 6-LUIS ARMANDO MEMORY: MEMORY - STEP 1: Does the patient need help to remember frequently encountered people, daily routines, and executing r equests? No. MEMORY - STEP 2: Does the patient have slight difficulty recognizing frequently encountered people, daily routines, or executing requests without the need for repetition or using self-initiated or environmental cues to remember? Yes. MEMORY - SCORE: 6-LUIS ARMANDO SIGNATURE PANEL: The following modified sections: Eating - Score, Grooming - Score, Bathing - Score, Dressing - Upper Body - Score, Dressing - Lower Body - Score, Toileting - Score, Bladder Management - Score, Bowel Man agement - Score, Transfers: Bed, Chair, Wheelchair - Score, Transfers: Toilet - Score, Transfers: Yuli wer - Score, Transfers: Tub - Score, Locomotion: Walk - Score, Locomotion: Wheelchair - Score, Compre hension - Score, Expression - Score, Social Interaction - Score, Problem Solving - Score, Memory - Sc ore were [electronically] signed by Endy Strong on SatDec 16 2017 11:10:36 GMT-0500 (Central Daylight Time)
[2017-12-16] MEDS: VANCOMYCIN ORAL SOLN 250 MG/5 ML OSYR PO SCH ×4 (11:22→21:14)
[2017-12-16] MEDS: AMLODIPINE 5 MG TAB PO SCH (12:36)
[2017-12-16] MEDS: METOPROLOL TAR 50 MG TAB PO SCH (12:37)
--- NOTE | 2017-12-16 14:51 | FAST ---
ENCOUNTER DATE AND TIME: 12/16/2017 08:00 (CDT) NAME ELIJAH ORTEGA DATE OF : 1950 DATE OF ADMISSION: 12/13/2017 18:47 (CDT) PHONE: AGE: 67 SSN# [id number] GENDER: Female ENCOUNTER PHYSICIAN: Dr. Pancho De Santiago M.D. ADMISSION DIAGNOSIS: - Medically Complex Conditions 17 - Other Medically Complex Conditions (17.9) colitis. hypertension. chronic Afib. CHF systolic. COPD. Anxiety. EATING: Activity did not occur on this shift EATING - SCORE: 0-UNK GROOMING: Activity did not occur on this shift GROOMING - SCORE: 0-UNK BATHING: Activity did not occur on this shift BATHING - SCORE: 0-UNK DRESSING - UPPER BODY: Activity did not occur on this shift Patient is not dressing in public clothing ARTICLES SCORE Total number of steps: 0 DRESSING - UPPER BODY - SCORE: 0-UNK DRESSING - LOWER BODY: Activity did not occur on this shift Patient is not dressing in public clothing ARTICLES SCORE Total number of steps: 0 DRESSING - LOWER BODY - SCORE: 0-UNK TOILETING: Activity did not occur on this shift TOILETING - SCORE: 0-UNK BLADDER MANAGEMENT: Activity did not occur on this shift BLADDER MANAGEMENT - SCORE: 7-IND BOWEL MANAGEMENT: Activity did not occur on this shift BOWEL MANAGEMENT - SCORE: 7-IND TRANSFERS: BED, CHAIR, WHEELCHAIR: TRANSFERS: BED, CHAIR, WHEELCHAIR - STEP 1: Does the patient require assistance with bed, chair, or wheelchair transfers? Yes. TRANSFERS: BED, CHAIR, WHEELCHAIR - STEP 2: Does the patient require the assistance of a helper? Yes. TRANSFERS: BED, CHAIR, WHEELCHAIR - STEP 3: How much assistance does the patient require from the helper? Only supervision TRANSFERS: BED, CHAIR, WHEELCHAIR - SCORE: 5-SUP TRANSFERS: TOILET: TRANSFERS: TOILET - STEP 1: Does the patient require assistance with toilet transfers? Yes. TRANSFERS: TOILET - STEP 2: Does the patient require the assistance of a helper? Yes. TRANSFERS: TOILET - STEP 3: How much assistance does the patient require from the helper? Only supervision, cuing, coaxing, OR he lp to set out transfer equipment or to lock brakes and/or lift foot rests TRANSFERS: TOILET - SCORE: 5-SUP TRANSFERS: SHOWER: Activity did not occur on this shift TRANSFERS: SHOWER - SCORE: 0-UNK TRANSFERS: TUB: Activity did not occur on this shift TRANSFERS: TUB - SCORE: 0-UNK LOCOMOTION: WALK: LOCOMOTION: WALK - STEP 1: Does the patient need help to walk 150 feet? Yes. LOCOMOTION: WALK - STEP 2: How much assistance does the patient require to walk a minimum of 150 feet? Patient walks less than 1 50 feet - but more than 50 feet - with the assistance of only one helper LOCOMOTION: WALK - SCORE: 2-MAX LOCOMOTION: WHEELCHAIR: Activity did not occur on this shift LOCOMOTION: WHEELCHAIR - SCORE: 0-UNK LOCOMOTION: STAIRS: Activity did not occur on this shift LOCOMOTION: STAIRS - SCORE: 0-UNK COMPREHENSION: COMPREHENSION - SCORE: 0-UNK EXPRESSION EXPRESSION - SCORE: 0-UNK SOCIAL INTERACTION: SOCIAL INTERACTION - SCORE: 0-UNK PROBLEM SOLVING: PROBLEM SOLVING - SCORE: 0-UNK MEMORY: MEMORY - SCORE: 0-UNK SIGNATURE PANEL: The following modified sections: Transfers: Bed, Chair, Wheelchair - Score, Transfers: Toilet - Score , Locomotion: Walk - Score, Locomotion: Wheelchair - Score, Locomotion: Stairs - Score were [electron matias] signed by Henrry Murphy PT on SatDec 16 2017 14:50:13 GMT-0500 (Central Daylight Time)
--- NOTE | 2017-12-16 16:50 | FAST ---
ENCOUNTER DATE AND TIME: 12/16/2017 08:00 (CDT) NAME ELIJAH ORTEGA DATE OF : 1950 DATE OF ADMISSION: 12/13/2017 18:47 (CDT) PHONE: AGE: 67 N# [id number] GENDER: Female ENCOUNTER PHYSICIAN: Dr. Pancho De Santiago M.D. ADMISSION DIAGNOSIS: - Medically Complex Conditions 17 - Other Medically Complex Conditions (17.9) colitis. hypertension. chronic Afib. CHF systolic. COPD. Anxiety. EATING: EATING - STEP 1: Does the patient require assistance when eating? No. EATING - SCORE: 7-IND GROOMING: Wash, rinse, and dry hands GROOMING - STEP 1: Does the patient require assistance when grooming? No. GROOMING - SCORE: 7-IND BATHING: Activity did not occur on this shift BATHING - SCORE: 0-UNK DRESSING - UPPER BODY: Activity did not occur on this shift ARTICLES SCORE Total number of steps: 0 DRESSING - UPPER BODY - SCORE: 0-UNK DRESSING - LOWER BODY: Activity did not occur on this shift ARTICLES SCORE Total number of steps: 0 DRESSING - LOWER BODY - SCORE: 0-UNK TOILETING: TOILETING - STEP 1: Does the patient require assistance with toileting? Yes. TOILETING - STEP 2: Does the patient require the assistance of a helper? Yes. TOILETING - STEP 3: How much assistance does the patient require from the helper? Hands-on assistance from the helper TOILETING - STEP 4: Of the 3 tasks: 1) Adjusting clothing prior to use, 2) Cleansing of perineal area, 3) Adjusting clot brooks after use; How many tasks does the patient perform WITHOUT assistance of the helper? Two tasks TOILETING - SCORE: 3-MOD BLADDER MANAGEMENT: Activity did not occur on this shift BLADDER MANAGEMENT - SCORE: 7-IND BOWEL MANAGEMENT: Activity did not occur on this shift BOWEL MANAGEMENT - SCORE: 7-IND TRANSFERS: BED, CHAIR, WHEELCHAIR: Activity did not occur on this shift TRANSFERS: BED, CHAIR, WHEELCHAIR - SCORE: 0-UNK TRANSFERS: TOILET: TRANSFERS: TOILET - STEP 1: Does the patient require assistance with toilet transfers? Yes. TRANSFERS: TOILET - STEP 2: Does the patient require the assistance of a helper? Yes. TRANSFERS: TOILET - STEP 3: How much assistance does the patient require from the helper? Only supervision, cuing, coaxing, OR he lp to set out transfer equipment or to lock brakes and/or lift foot rests TRANSFERS: TOILET - SCORE: 5-SUP TRANSFERS: SHOWER: Activity did not occur on this shift TRANSFERS: SHOWER - SCORE: 0-UNK TRANSFERS: TUB: Activity did not occur on this shift TRANSFERS: TUB - SCORE: 0-UNK LOCOMOTION: WALK: Activity did not occur on this shift LOCOMOTION: WALK - SCORE: 0-UNK LOCOMOTION: WHEELCHAIR: Activity did not occur on this shift LOCOMOTION: WHEELCHAIR - SCORE: 0-UNK LOCOMOTION: STAIRS: Activity did not occur on this shift LOCOMOTION: STAIRS - SCORE: 0-UNK COMPREHENSION: COMPREHENSION: TYPE: Both COMPREHENSION - STEP 1: Does the patient require help to understand complex and abstract ideas (such as current events, finan sebastian, discharge planning, medical issues, relationships, etc)? No. COMPREHENSION - STEP 2: Does the patient need extra time, require an assistive device (such as glasses for visual comprehensi on or a hearing aid for auditory comprehension) or does s/he have mild difficulty understanding compl ex and abstract information? No. COMPREHENSION - SCORE: 7-IND EXPRESSION EXPRESSION: TYPE: Both EXPRESSION - STEP 1: Does the patient require help expressing complex and abstract ideas (such as current events, finances , discharge planning, medical issues, relationships, etc)? No. EXPRESSION - STEP 2: Does the patient need extra time, require an assistive device (such as augmentive communication syste m or a communication board), OR does s/he have mild difficulty expressing complex and abstract ideas (including mild dysarthria or mild word-find problems)? No. EXPRESSION - SCORE: 7-IND SOCIAL INTERACTION: SOCIAL INTERACTION - STEP 1: Does the patient require a helper to interact with others in social and therapeutic situations? No. SOCIAL INTERACTION - STEP 2: Does the patient need extra time in social situations, OR does s/he interact with staff, other patien ts, and family members ONLY in structured environments, OR does s/he require medication for social in teraction? Yes, patient needs extra time SOCIAL INTERACTION - SCORE: 6-LUIS ARMANDO PROBLEM SOLVING: PROBLEM SOLVING - STEP 1: Does the patient need help to solve complex problems such as managing a checking account or confronti ng interpersonal problems? No. PROBLEM SOLVING - STEP 2: Does the patient require extra time to make decisions or solve problems, OR does s/he have slight dif ficulty reading, initiating, or self-correcting in unfamiliar situations? No. PROBLEM SOLVING - SCORE: 7-IND MEMORY: MEMORY - STEP 1: Does the patient need help to remember frequently encountered people, daily routines, and executing r equests? No. MEMORY - STEP 2: Does the patient have slight difficulty recognizing frequently encountered people, daily routines, or executing requests without the need for repetition or using self-initiated or environmental cues to remember? No. MEMORY - SCORE: 7-IND SIGNATURE PANEL: The following modified sections: Memory - Score, Problem Solving - Score, Social Interaction - Score, Expression - Score, Comprehension - Score, Transfers: Bed, Chair, Wheelchair - Score, Transfers: Yuli wer - Score, Transfers: Toilet - Score, Transfers: Tub - Score, Eating - Score, Grooming - Score, Bat brooks - Score, Dressing - Upper Body - Score, Dressing - Lower Body - Score, Toileting - Score were [e lectronically] signed by Nellie Reid OT on SatDec 16 2017 16:49:55 T-0500 (Central Daylight T mohan)
--- NOTE | 2017-12-16 17:42 | R.PN ---
ENCOUNTER DATE AND TIME: 12/16/2017 17:36 (CDT) NAME ELIJAH ORTEGA DATE OF : 1950 DATE OF ADMISSION: 12/13/2017 18:47 (CDT) colitishypertensionchronic AfibCHF systolicCOPDAnxietySUBJECTIVE: Pt denied any Shortness of Breath. Pt denied any depression. Ambulated 90' with rolling walker with contact guard to standby assistance. VITAL SIGNS Temperature: 98.3F SBP/DBP: 107/57 Pulse: 65 Resp: 18 MEDICATION ALLERGIES: amitriptyline HCI Ciprofloxacin Phenobarbital ENVIRONMENTAL ALLERGIES: - Substance Allergies None Known - Other Allergies None Known NURSING: - Shower allowing shower ACTIVITIES OOB only with supervision THERAPIES: - Occupational Therapy Evaluate and Treat. - Physical Therapy Evaluate and Treat. PHYSICAL EXAM - Gen Alert and awake Lying in bed No apparent distress Oriented to: person, time, and place - Skin No skin breakdown. Normacephalic - Eyes No abnormalities - ENMT No abnormalities - Neck No abnormalities - CVS RRR - Chest Clear - Abd Soft - GI Non distended Deferred - No abnormalities - Ext No significant edema - MSK 4/5 weakness in both lower extremities. - Neuro No focal deficits - Psych No abnormalities ASSESSMENT: Pt. is a 67 yo Right-handed white female.On 12/10/2017 she was admitted to [facility] with diagnosis colitis.Her impairment category is Medically Complex Conditions 17 - Other Med ically Complex Conditions (17.9).Pre-morbidly, Pt. was independent/mod-I in Sphincter Control, Commun ication, Social Cognition, Self-Care, and Locomotion; and she had good Sphincter Control.Currently, s he has deficits of Endurance, Safety Awareness, Transfers Control, Communication, Social Cognition, B alance, Locomotion, and Self-Care.Pt. is now referred to [facility] for acute in-patient rehabilitation in order to maximize patient's functional independence in activities of ruddy ly living, strength, ROM, and mobility.- Rehab Goal Patient has realistic goal of being discharged at assistance level 6-Zainab to reside at Home with Fam genevieve/Relatives. MDM/PLAN: - Physical Therapy Gait dysfunction - to improve, our physical therapists will perform initial evaluation of pt's statu s upon admission and devise an individualized program for Gait Training, and Wheel Chair mobility Inability to transfer - to improve, our physical therapists will perform initial evaluation of pt's status upon admission and devise an individualized program for Bed mobility Need for home safety evaluation - to improve, our physical therapists will perform initial evaluatio n of pt's status upon admission and devise an individualized program for Home Evaluation Need in caregiver upon discharge - to improve, our physical therapists will perform initial evaluati on of pt's status upon admission and devise an individualized program for Caregiver Training Edema - to improve, our physical therapists will perform initial evaluation of pt's status upon admis meagan and devise an individualized program for Elevation Training, and Lymphedema Therapy New precaution - to improve, our physical therapists will perform initial evaluation of pt's status upon admission and devise an individualized program for Patient precaution education Poor balance - to improve, our physical therapists will perform initial evaluation of pt's status up on admission and devise an individualized program for Balance Training Poor endurance - to improve, our physical therapists will perform initial evaluation of pt's status upon admission and devise an individualized program for Endurance Training Weakness - to improve, our physical therapists will perform initial evaluation of pt's status upon a dmission and devise an individualized program for Aquatic Therapy, Neuromuscular Reeducation, and Str engthening Achieving independence - to improve, our physical therapists will perform initial evaluation of pt's status upon admission and devise an individualized program for Community Reintegration Activities - Occupational Therapy ADL deficits - to improve, our occupation therapists will perform initial evaluation of pt's status upon admission and devise an individualized program for Bathing, Bed mobility, Community Reintegratio n, Cooking, Dressing, Eating, Fine Motor Skills, Grooming, Homemaking, Kitchen Mobility, Laundry, Pat ient Education, Safety Awareness, Splinting - Positioning, Transfers(Toilet, Tub, Shower), and Wheel Chair Management Cognitive deficits - to improve, our occupation therapists will perform initial evaluation of pt's s tatus upon admission and devise an individualized program for Cognition - orientation Need for career representative - to improve, our occupation therapists will perform initial evaluation of pt's status upon admission and devise an individualized program for Caregiver Training Weakness - to improve, our occupation therapists will perform initial evaluation of pt's status upon admission and devise an individualized program for Aquatic Therapy, Balance, Endurance, UE ROM, and UE strengthening - Diet Type Continue Regular - Diet - Liquid Texture Continue Regular - Tube Feed Continue N/A - Diet - Solid Texture Continue Regular - Shower allowing shower FUNCTIONAL STATUS: UPDATED AT WEEKLY TEAM CONFERENCE - Bladder Same Bladder control device used: diaper Same accident frequency: 7-Ind - No accidents in the past 7 days - Bowel Same Bowel control device used: diaper Same accident frequency: 7-Ind - No accidents in the past 7 days - Walking Same score based on distance walked: 0(N/A) - Wheelchair Same score based on distance traveled: 0(N/A) FUNCTIONAL STATUS: - Self-Care A. Eating Ind B. Grooming Ind C. Bathing maxA D. Dressing - Upper sup E. Dressing - Lower maxA F. Toileting Dep - Sphincter Control G: Bladder control Dep H: Bowel control Dep - Transfers Control I. Bed/Chair/Wheelchair modA J. Toilet modA K. Tub/Shower modA - Locomotion L. Walk/Wheelchair (B) maxA M. Stairs ADNO - Communication N. Comprehension (B) sup O. Expression (B) sup - Social Cognition P. Social Interaction sup Q. Problem Solving sup R. Memory sup - Endurance Poor - Balance Fair - Safety Awareness Poor CURRENT FUNC. DEFICITS: Endurance, Safety Awareness, Transfers Control, Communication, Social Cognition, Balance, Locomotion, and Self-Care SIGNATURE PANEL: (CDT)
[2017-12-16] MEDS: clonazePAM 1 MG TAB PO PRN (18:39)
[2017-12-16] MEDS: DIPHENHYDRAMINE 25 MG TAB/CAP PO PRN (18:39)
--- NOTE | 2017-12-17 02:50 | FAST ---
SHIFT START DATE/TIME: 12/16/2017 19:00 (CDT) SHIFT END DATE/TIME: 12/17/2017 07:00 (CDT) NAME ELIJAH ORTEGA DATE OF : 1950 DATE OF ADMISSION: 12/13/2017 18:47 (CDT) PHONE: AGE: 67 N# [id number] GENDER: Female ENCOUNTER PHYSICIAN: Dr. Pancho De Santiago M.D. ADMISSION DIAGNOSIS: - Medically Complex Conditions 17 - Other Medically Complex Conditions (17.9) colitis. hypertension. chronic Afib. CHF systolic. COPD. Anxiety. EATING: Activity did not occur on this shift EATING - SCORE: 0-UNK GROOMING: Wash, rinse, and dry hands GROOMING - STEP 1: Does the patient require assistance when grooming? Yes. GROOMING - STEP 2: Does the patient require the assistance of a helper? Yes. GROOMING - STEP 3: How much assistance does the patient require from the helper? Cuing, coaxing, instructions, or encour agement for completion of grooming GROOMING - SCORE: 5-SUP BATHING: Activity did not occur on this shift BATHING - SCORE: 0-UNK DRESSING - UPPER BODY: Patient is not dressing in public clothing ARTICLES SCORE Total number of steps: 0 DRESSING - UPPER BODY - SCORE: 0-UNK DRESSING - LOWER BODY: Patient is not dressing in public clothing ARTICLES SCORE Total number of steps: 0 DRESSING - LOWER BODY - SCORE: 0-UNK TOILETING: TOILETING - STEP 1: Does the patient require assistance with toileting? Yes. TOILETING - STEP 2: Does the patient require the assistance of a helper? Yes. TOILETING - STEP 3: How much assistance does the patient require from the helper? Hands-on assistance from the helper TOILETING - STEP 4: Of the 3 tasks: 1) Adjusting clothing prior to use, 2) Cleansing of perineal area, 3) Adjusting clot brooks after use; How many tasks does the patient perform WITHOUT assistance of the helper? One task TOILETING - SCORE: 2-MAX BLADDER MANAGEMENT: BLADDER MANAGEMENT - STEP 1: Does the patient control the bladder completely and intentionally without equipment or devices or med ications, and is always continent? No. BLADDER MANAGEMENT - STEP 2: Does the patient require the assistance of a helper? Yes. BLADDER MANAGEMENT - STEP 3: How much assistance does the patient require from the helper? Only set-up of equipment - such as plac ing it within reach of the patient or emptying a device - to maintain either satisfactory voiding pat tern or managing an external device, such as an absorbent pad, ileal device, or catheter BLADDER MANAGEMENT - SCORE: 5-SUP BOWEL MANAGEMENT: Activity did not occur on this shift BOWEL MANAGEMENT - SCORE: 7-IND TRANSFERS: BED, CHAIR, WHEELCHAIR: TRANSFERS: BED, CHAIR, WHEELCHAIR - STEP 1: Does the patient require assistance with bed, chair, or wheelchair transfers? Yes. TRANSFERS: BED, CHAIR, WHEELCHAIR - STEP 2: Does the patient require the assistance of a helper? Yes. TRANSFERS: BED, CHAIR, WHEELCHAIR - STEP 3: How much assistance does the patient require from the helper? Lifting of the legs TRANSFERS: BED, CHAIR, WHEELCHAIR - STEP 4: How many legs does the patient require the helper to lift? both legs TRANSFERS: BED, CHAIR, WHEELCHAIR - SCORE: 3-MOD TRANSFERS: TOILET: TRANSFERS: TOILET - STEP 1: Does the patient require assistance with toilet transfers? Yes. TRANSFERS: TOILET - STEP 2: Does the patient require the assistance of a helper? Yes. TRANSFERS: TOILET - STEP 3: How much assistance does the patient require from the helper? Patient performs half or more of the tr ansferring tasks TRANSFERS: TOILET - STEP 4: Does the patient need only incidental help such as contact guard or steadying during toilet transfer? Yes. TRANSFERS: TOILET - SCORE: 4-MIN TRANSFERS: SHOWER: Activity did not occur on this shift TRANSFERS: SHOWER - SCORE: 0-UNK TRANSFERS: TUB: Activity did not occur on this shift TRANSFERS: TUB - SCORE: 0-UNK LOCOMOTION: WALK: Activity did not occur on this shift LOCOMOTION: WALK - SCORE: 0-UNK LOCOMOTION: WHEELCHAIR: Activity did not occur on this shift LOCOMOTION: WHEELCHAIR - SCORE: 0-UNK COMPREHENSION: COMPREHENSION: TYPE: Both COMPREHENSION - STEP 1: Does the patient require help to understand complex and abstract ideas (such as current events, finan sebastian, discharge planning, medical issues, relationships, etc)? No. COMPREHENSION - STEP 2: Does the patient need extra time, require an assistive device (such as glasses for visual comprehensi on or a hearing aid for auditory comprehension) or does s/he have mild difficulty understanding compl ex and abstract information? Yes. COMPREHENSION - SCORE: 6-LUIS ARMANDO EXPRESSION EXPRESSION: TYPE: Both EXPRESSION - STEP 1: Does the patient require help expressing complex and abstract ideas (such as current events, finances , discharge planning, medical issues, relationships, etc)? No. EXPRESSION - STEP 2: Does the patient need extra time, require an assistive device (such as augmentive communication syste m or a communication board), OR does s/he have mild difficulty expressing complex and abstract ideas (including mild dysarthria or mild word-find problems)? Yes. EXPRESSION - SCORE: 6-LUIS ARMANDO SOCIAL INTERACTION: SOCIAL INTERACTION - STEP 1: Does the patient require a helper to interact with others in social and therapeutic situations? No. SOCIAL INTERACTION - STEP 2: Does the patient need extra time in social situations, OR does s/he interact with staff, other patien ts, and family members ONLY in structured environments, OR does s/he require medication for social in teraction? Yes, patient requires medication for social interaction SOCIAL INTERACTION - SCORE: 6-LUIS ARMANDO PROBLEM SOLVING: PROBLEM SOLVING - STEP 1: Does the patient need help to solve complex problems such as managing a checking account or confronti ng interpersonal problems? No. PROBLEM SOLVING - STEP 2: Does the patient require extra time to make decisions or solve problems, OR does s/he have slight dif ficulty reading, initiating, or self-correcting in unfamiliar situations? Yes, patient needs extra ti me. PROBLEM SOLVING - SCORE: 6-LUIS ARMANDO MEMORY: MEMORY - STEP 1: Does the patient need help to remember frequently encountered people, daily routines, and executing r equests? No. MEMORY - STEP 2: Does the patient have slight difficulty recognizing frequently encountered people, daily routines, or executing requests without the need for repetition or using self-initiated or environmental cues to remember? Yes. MEMORY - SCORE: 6-LUIS ARMANDO SIGNATURE PANEL: The following modified sections: Eating - Score, Grooming - Score, Dressing - Upper Body - Score, Jose ssing - Lower Body - Score, Toileting - Score, Bladder Management - Score, Bowel Management - Score, Transfers: Bed, Chair, Wheelchair - Score, Transfers: Toilet - Score, Transfers: Shower - Score, Kramer sfers: Tub - Score, Locomotion: Walk - Score, Locomotion: Wheelchair - Score, Comprehension - Score, Expression - Score, Social Interaction - Score, Problem Solving - Score, Memory - Score were [electro nically] signed by Sandra Don CNA on SatDec 17 2017 02:48:56 GMT-0500 (Central Daylight Time)
[2017-12-17] MEDS: Oxycodone HCl/Acetaminophen 1 TAB TAB PO PRN ×4 (05:04→18:53)
[2017-12-17] MEDS: FUROSEMIDE 40 MG TABLET PO SCH (05:05)
[2017-12-17] MEDS: CIPROFLOXACIN 0.3% ML OPHTH OPTH SCH ×2 (08:00→20:00)
[2017-12-17] MEDS: levoFLOXacin 500 MG TAB PO SCH (08:00)
[2017-12-17] MEDS: ARFORMOTEROL TARTRATE 15 MCG/2 ML VIAL.NEB NEB SCH ×2 (08:00→19:45)
[2017-12-17] MEDS ORDERED: Meropenem 1000 MG/VIAL IV SCH (09:00)
[2017-12-17] MEDS: LISINOPRIL 20 MG TAB PO SCH (09:03)
[2017-12-17] MEDS: GABAPENTIN 400 MG CAP PO SCH ×2 (09:04→20:02)
[2017-12-17] MEDS: ASPIRIN EC 81 MG TAB PO SCH (09:04)
[2017-12-17] MEDS: SERTRALINE HCL 50 MG TAB PO SCH (09:04)
[2017-12-17] MEDS: METOPROLOL TAR 50 MG TAB PO SCH (09:04)
[2017-12-17] MEDS: APIXABAN 2.5 MG TABLET PO SCH ×2 (09:05→20:02)
[2017-12-17] MEDS: predniSONE 20 MG TAB PO SCH (09:05)
[2017-12-17] MEDS: ALBUTEROL INHALER 60 PUFF/8 GM IH SCH ×4 (09:05→21:00)
[2017-12-17] MEDS: PANTOPRAZOLE 40MG TABLET PO SCH (09:29)
[2017-12-17] MEDS: AMLODIPINE 5 MG TAB PO SCH (10:12)
[2017-12-17] MEDS: Meropenem 1,000 MG in NA CHLORIDE 0.9% 100 ML IV SCH ×2 (10:12→17:03)
[2017-12-17] MEDS: clonazePAM 1 MG TAB PO PRN (10:47)
--- NOTE | 2017-12-17 17:18 | FAST ---
SHIFT START DATE/TIME: 12/17/2017 07:00 (CDT) SHIFT END DATE/TIME: 12/17/2017 19:00 (CDT) NAME ELIJAH ORTEGA DATE OF : 1950 DATE OF ADMISSION: 12/13/2017 18:47 (CDT) PHONE: AGE: 67 N# [id number] GENDER: Female ENCOUNTER PHYSICIAN: Dr. Pancho De Santiago M.D. ADMISSION DIAGNOSIS: - Medically Complex Conditions 17 - Other Medically Complex Conditions (17.9) colitis. hypertension. chronic Afib. CHF systolic. COPD. Anxiety. EATING: EATING - STEP 1: Does the patient require assistance when eating? Yes. EATING - STEP 2: Does the patient require the assistance of a helper? Yes. EATING - STEP 3: Does the patient perform half or more of the eating tasks? Yes. EATING - STEP 4: Does the patient need only supervision, cuing, coaxing OR help to apply an orthosis OR help to cut fo od, open containers, pour liquids, or butter bread? Yes. EATING - SCORE: 5-SUP GROOMING: Comb/brush hair Wash, rinse, and dry face Wash, rinse, and dry hands GROOMING - STEP 1: Does the patient require assistance when grooming? Yes. GROOMING - STEP 2: Does the patient require the assistance of a helper? Yes. GROOMING - STEP 3: How much assistance does the patient require from the helper? Only prior equipment preparation/set up from the helper GROOMING - SCORE: 5-SUP BATHING: Activity did not occur on this shift BATHING - SCORE: 0-UNK DRESSING - UPPER BODY: Activity did not occur on this shift ARTICLES SCORE Total number of steps: 0 DRESSING - UPPER BODY - SCORE: 0-UNK DRESSING - LOWER BODY: Activity did not occur on this shift ARTICLES SCORE Total number of steps: 0 DRESSING - LOWER BODY - SCORE: 0-UNK TOILETING: TOILETING - STEP 1: Does the patient require assistance with toileting? Yes. TOILETING - STEP 2: Does the patient require the assistance of a helper? Yes. TOILETING - STEP 3: How much assistance does the patient require from the helper? Hands-on assistance from the helper TOILETING - STEP 4: Of the 3 tasks: 1) Adjusting clothing prior to use, 2) Cleansing of perineal area, 3) Adjusting clot brooks after use; How many tasks does the patient perform WITHOUT assistance of the helper? Two tasks TOILETING - SCORE: 3-MOD BLADDER MANAGEMENT: BLADDER MANAGEMENT - STEP 1: Does the patient control the bladder completely and intentionally without equipment or devices or med ications, and is always continent? No. BLADDER MANAGEMENT - STEP 2: Does the patient require the assistance of a helper? No, patient requires and independently uses an a ssistive device, such as a urinal, bedpan, bedside commode, catheter, absorbent pad, or collecting de vice BLADDER MANAGEMENT - SCORE: 6-LUIS ARMANDO BLADDER MANAGEMENT - FREQUENCY OF ACCIDENTS: BLADDER MANAGEMENT(FA) - STEP 1: How many accidents has the patient had during the current shift? 0 BOWEL MANAGEMENT: BOWEL MANAGEMENT - STEP 1: Does the patient control bowels completely and intentionally without equipment devices or medications AND is always continent? Yes. BOWEL MANAGEMENT - SCORE: 7-IND BOWEL MANAGEMENT - FREQUENCY OF ACCIDENTS: BOWEL MANAGEMENT(FA) - STEP 1: How many accidents has the patient had during the current shift? 0 TRANSFERS: BED, CHAIR, WHEELCHAIR: TRANSFERS: BED, CHAIR, WHEELCHAIR - STEP 1: Does the patient require assistance with bed, chair, or wheelchair transfers? Yes. TRANSFERS: BED, CHAIR, WHEELCHAIR - STEP 2: Does the patient require the assistance of a helper? Yes. TRANSFERS: BED, CHAIR, WHEELCHAIR - STEP 3: How much assistance does the patient require from the helper? Only supervision TRANSFERS: BED, CHAIR, WHEELCHAIR - SCORE: 5-SUP TRANSFERS: TOILET: TRANSFERS: TOILET - STEP 1: Does the patient require assistance with toilet transfers? Yes. TRANSFERS: TOILET - STEP 2: Does the patient require the assistance of a helper? Yes. TRANSFERS: TOILET - STEP 3: How much assistance does the patient require from the helper? Only supervision, cuing, coaxing, OR he lp to set out transfer equipment or to lock brakes and/or lift foot rests TRANSFERS: TOILET - SCORE: 5-SUP TRANSFERS: SHOWER: Activity did not occur on this shift TRANSFERS: SHOWER - SCORE: 0-UNK TRANSFERS: TUB: Activity did not occur on this shift TRANSFERS: TUB - SCORE: 0-UNK LOCOMOTION: WALK: Activity did not occur on this shift LOCOMOTION: WALK - SCORE: 0-UNK LOCOMOTION: WHEELCHAIR: Activity did not occur on this shift LOCOMOTION: WHEELCHAIR - SCORE: 0-UNK COMPREHENSION: COMPREHENSION: TYPE: Both COMPREHENSION - STEP 1: Does the patient require help to understand complex and abstract ideas (such as current events, finan sebastian, discharge planning, medical issues, relationships, etc)? No. COMPREHENSION - STEP 2: Does the patient need extra time, require an assistive device (such as glasses for visual comprehensi on or a hearing aid for auditory comprehension) or does s/he have mild difficulty understanding compl ex and abstract information? Yes. COMPREHENSION - SCORE: 6-LUIS ARMANDO EXPRESSION EXPRESSION: TYPE: Both EXPRESSION - STEP 1: Does the patient require help expressing complex and abstract ideas (such as current events, finances , discharge planning, medical issues, relationships, etc)? No. EXPRESSION - STEP 2: Does the patient need extra time, require an assistive device (such as augmentive communication syste m or a communication board), OR does s/he have mild difficulty expressing complex and abstract ideas (including mild dysarthria or mild word-find problems)? Yes. EXPRESSION - SCORE: 6-LUIS ARMANDO SOCIAL INTERACTION: SOCIAL INTERACTION - STEP 1: Does the patient require a helper to interact with others in social and therapeutic situations? No. SOCIAL INTERACTION - STEP 2: Does the patient need extra time in social situations, OR does s/he interact with staff, other patien ts, and family members ONLY in structured environments, OR does s/he require medication for social in teraction? Yes, patient needs extra time SOCIAL INTERACTION - SCORE: 6-LUIS ARMANDO PROBLEM SOLVING: PROBLEM SOLVING - STEP 1: Does the patient need help to solve complex problems such as managing a checking account or confronti ng interpersonal problems? No. PROBLEM SOLVING - STEP 2: Does the patient require extra time to make decisions or solve problems, OR does s/he have slight dif ficulty reading, initiating, or self-correcting in unfamiliar situations? Yes, patient needs extra ti me. PROBLEM SOLVING - SCORE: 6-LUIS ARMANDO MEMORY: MEMORY - STEP 1: Does the patient need help to remember frequently encountered people, daily routines, and executing r equests? No. MEMORY - STEP 2: Does the patient have slight difficulty recognizing frequently encountered people, daily routines, or executing requests without the need for repetition or using self-initiated or environmental cues to remember? Yes. MEMORY - SCORE: 6-LUIS ARMANDO SIGNATURE PANEL: The following modified sections: Eating - Score, Grooming - Score, Bathing - Score, Dressing - Upper Body - Score, Dressing - Lower Body - Score, Toileting - Score, Bladder Management - Score, Bowel Man agement - Score, Transfers: Bed, Chair, Wheelchair - Score, Transfers: Toilet - Score, Transfers: Yuli wer - Score, Transfers: Tub - Score, Locomotion: Walk - Score, Locomotion: Wheelchair - Score, Compre hension - Score, Expression - Score, Social Interaction - Score, Problem Solving - Score, Memory - Sc ore were [electronically] signed by Chey Davis C.N.A. on SatDec 17 2017 17:17:40 T-0500 (Centra l Daylight Time)
[2017-12-17] MEDS: DIPHENHYDRAMINE 25 MG TAB/CAP PO PRN (20:02)
[2017-12-17] MEDS: PROMOD 30 ML DOSE PO SCH (20:03)
--- NOTE | 2017-12-17 21:37 | R.PN ---
ENCOUNTER DATE AND TIME: 12/17/2017 21:30 (CDT) NAME ELIJAH ORTEGA DATE OF : 1950 DATE OF ADMISSION: 12/13/2017 18:47 (CDT) colitishypertensionchronic AfibCHF systolicCOPDAnxietyCHIEF COMPLAINT: Debility SUBJECTIVE: Pt denied any Shortness of Breath. Pt denied any depression. Ambulated 90' with rolling walker with contact guard to standby assistance. Eating mechanical soft d iet with chopped meats and requiring supervision. VITAL SIGNS Temperature: 98.3F SBP/DBP: 150/74 Pulse: 76 Resp: 18 MEDICATION ALLERGIES: amitriptyline HCI Ciprofloxacin Phenobarbital ENVIRONMENTAL ALLERGIES: - Substance Allergies None Known - Other Allergies None Known NURSING: - Shower allowing shower ACTIVITIES OOB only with supervision THERAPIES: - Occupational Therapy Evaluate and Treat. - Physical Therapy Evaluate and Treat. PHYSICAL EXAM - Gen Alert and awake Lying in bed No apparent distress Oriented to: person, time, and place - Skin No skin breakdown. Normacephalic - Eyes No abnormalities - ENMT No abnormalities - Neck No abnormalities - CVS RRR - Chest Clear - Abd Soft - GI Non distended Deferred - No abnormalities - Ext No significant edema - MSK 4/5 weakness in both lower extremities. - Neuro No focal deficits - Psych No abnormalities ASSESSMENT: Pt. is a 67 yo Right-handed white female.On 12/10/2017 she was admitted to [facility] with diagnosis colitis.Her impairment category is Medically Complex Conditions 17 - Other Med ically Complex Conditions (17.9).Pre-morbidly, Pt. was independent/mod-I in Sphincter Control, Commun ication, Social Cognition, Self-Care, and Locomotion; and she had good Sphincter Control.Currently, s he has deficits of Endurance, Safety Awareness, Transfers Control, Communication, Social Cognition, B alance, Locomotion, and Self-Care.Pt. is now referred to [facility] for acute in-patient rehabilitation in order to maximize patient's functional independence in activities of ruddy ly living, strength, ROM, and mobility.- Rehab Goal Patient has realistic goal of being discharged at assistance level 6-Zainab to reside at Home with Fam genevieve/Relatives. MDM/PLAN: - Physical Therapy Gait dysfunction - to improve, our physical therapists will perform initial evaluation of pt's statu s upon admission and devise an individualized program for Gait Training, and Wheel Chair mobility Inability to transfer - to improve, our physical therapists will perform initial evaluation of pt's status upon admission and devise an individualized program for Bed mobility Need for home safety evaluation - to improve, our physical therapists will perform initial evaluatio n of pt's status upon admission and devise an individualized program for Home Evaluation Need in caregiver upon discharge - to improve, our physical therapists will perform initial evaluati on of pt's status upon admission and devise an individualized program for Caregiver Training Edema - to improve, our physical therapists will perform initial evaluation of pt's status upon admi ssion and devise an individualized program for Elevation Training, and Lymphedema Therapy New precaution - to improve, our physical therapists will perform initial evaluation of pt's status upon admission and devise an individualized program for Patient precaution education Poor balance - to improve, our physical therapists will perform initial evaluation of pt's status up on admission and devise an individualized program for Balance Training Poor endurance - to improve, our physical therapists will perform initial evaluation of pt's status upon admission and devise an individualized program for Endurance Training Weakness - to improve, our physical therapists will perform initial evaluation of pt's status upon a dmission and devise an individualized program for Aquatic Therapy, Neuromuscular Reeducation, and Str engthening Achieving independence - to improve, our physical therapists will perform initial evaluation of pt's status upon admission and devise an individualized program for Community Reintegration Activities - Occupational Therapy ADL deficits - to improve, our occupation therapists will perform initial evaluation of pt's status upon admission and devise an individualized program for Bathing, Bed mobility, Community Reintegratio n, Cooking, Dressing, Eating, Fine Motor Skills, Grooming, Homemaking, Kitchen Mobility, Laundry, Pat ient Education, Safety Awareness, Splinting - Positioning, Transfers(Toilet, Tub, Shower), and Wheel Chair Management Cognitive deficits - to improve, our occupation therapists will perform initial evaluation of pt's s tatus upon admission and devise an individualized program for Cognition - orientation Need for respiratory care program director - to improve, our occupation therapists will perform initial evaluation of pt's status upon admission and devise an individualized program for Caregiver Training Weakness - to improve, our occupation therapists will perform initial evaluation of pt's status upon admission and devise an individualized program for Aquatic Therapy, Balance, Endurance, UE ROM, and UE strengthening - Diet Type Continue Regular - Diet - Liquid Texture Continue Regular - Tube Feed Continue N/A - Diet - Solid Texture Continue Regular - Shower allowing shower FUNCTIONAL STATUS: UPDATED AT WEEKLY TEAM CONFERENCE - Bladder Same Bladder control device used: diaper Same accident frequency: 7-Ind - No accidents in the past 7 days - Bowel Same Bowel control device used: diaper Same accident frequency: 7-Ind - No accidents in the past 7 days - Walking Same score based on distance walked: 0(N/A) - Wheelchair Same score based on distance traveled: 0(N/A) FUNCTIONAL STATUS: - Self-Care A. Eating Ind B. Grooming Ind C. Bathing maxA D. Dressing - Upper sup E. Dressing - Lower maxA F. Toileting Dep - Sphincter Control G: Bladder control Dep H: Bowel control Dep - Transfers Control I. Bed/Chair/Wheelchair modA J. Toilet modA K. Tub/Shower modA - Locomotion L. Walk/Wheelchair (B) maxA M. Stairs ADNO - Communication N. Comprehension (B) sup O. Expression (B) sup - Social Cognition P. Social Interaction sup Q. Problem Solving sup R. Memory sup - Endurance Poor - Balance Fair - Safety Awareness Poor CURRENT FUNC. DEFICITS: Endurance, Safety Awareness, Transfers Control, Communication, Social Cognition, Balance, Locomotion, and Self-Care SIGNATURE PANEL: (CDT)
[2017-12-18] MEDS: Meropenem 1,000 MG in NA CHLORIDE 0.9% 100 ML IV SCH ×2 (00:49→08:57)
[2017-12-18] MEDS: Oxycodone HCl/Acetaminophen 1 TAB TAB PO PRN ×6 (01:00→20:21)
[2017-12-18] MEDS: clonazePAM 1 MG TAB PO PRN ×2 (01:09→20:21)
--- NOTE | 2017-12-18 01:14 | FAST ---
SHIFT START DATE/TIME: 12/17/2017 19:00 (CDT) SHIFT END DATE/TIME: 12/18/2017 07:00 (CDT) NAME ELIJAH ORTEGA DATE OF : 1950 DATE OF ADMISSION: 12/13/2017 18:47 (CDT) PHONE: AGE: 67 N# [id number] GENDER: Female ENCOUNTER PHYSICIAN: Dr. Pancho De Santiago M.D. ADMISSION DIAGNOSIS: - Medically Complex Conditions 17 - Other Medically Complex Conditions (17.9) colitis. hypertension. chronic Afib. CHF systolic. COPD. Anxiety. EATING: Activity did not occur on this shift EATING - SCORE: 0-UNK GROOMING: Wash, rinse, and dry hands GROOMING - STEP 1: Does the patient require assistance when grooming? Yes. GROOMING - STEP 2: Does the patient require the assistance of a helper? Yes. GROOMING - STEP 3: How much assistance does the patient require from the helper? Cuing, coaxing, instructions, or encour agement for completion of grooming GROOMING - SCORE: 5-SUP BATHING: Activity did not occur on this shift BATHING - SCORE: 0-UNK DRESSING - UPPER BODY: Patient is not dressing in public clothing ARTICLES SCORE Total number of steps: 0 DRESSING - UPPER BODY - SCORE: 0-UNK DRESSING - LOWER BODY: Patient is not dressing in public clothing ARTICLES SCORE Total number of steps: 0 DRESSING - LOWER BODY - SCORE: 0-UNK TOILETING: TOILETING - STEP 1: Does the patient require assistance with toileting? Yes. TOILETING - STEP 2: Does the patient require the assistance of a helper? Yes. TOILETING - STEP 3: How much assistance does the patient require from the helper? Hands-on assistance from the helper TOILETING - STEP 4: Of the 3 tasks: 1) Adjusting clothing prior to use, 2) Cleansing of perineal area, 3) Adjusting clot brooks after use; How many tasks does the patient perform WITHOUT assistance of the helper? No tasks; megan zamora performs all three tasks TOILETING - SCORE: 1-DEP BLADDER MANAGEMENT: BLADDER MANAGEMENT - STEP 1: Does the patient control the bladder completely and intentionally without equipment or devices or med ications, and is always continent? No. BLADDER MANAGEMENT - STEP 2: Does the patient require the assistance of a helper? Yes. BLADDER MANAGEMENT - STEP 3: How much assistance does the patient require from the helper? Patient requires contact assistance fro m the helper BLADDER MANAGEMENT - STEP 4: How much contact assistance does the patient require from the helper? Patient requires minimal assist ance to maintain an external device - by positioning, and the patient performs 75% or more of bladder management tasks, while the helper provides less than 25% of the assistance to position patient on / off bedpan BLADDER MANAGEMENT - SCORE: 4-MIN BOWEL MANAGEMENT: BOWEL MANAGEMENT - STEP 1: Does the patient control bowels completely and intentionally without equipment devices or medications AND is always continent? No. BOWEL MANAGEMENT - STEP 2: Does the patient require the assistance of a helper? No, patient requires medication for control such as stool softeners, suppositories, laxatives, enemas, or OTC medications BOWEL MANAGEMENT - SCORE: 6-LUIS ARMANDO TRANSFERS: BED, CHAIR, WHEELCHAIR: TRANSFERS: BED, CHAIR, WHEELCHAIR - STEP 1: Does the patient require assistance with bed, chair, or wheelchair transfers? Yes. TRANSFERS: BED, CHAIR, WHEELCHAIR - STEP 2: Does the patient require the assistance of a helper? Yes. TRANSFERS: BED, CHAIR, WHEELCHAIR - STEP 3: How much assistance does the patient require from the helper? Lifting of the legs TRANSFERS: BED, CHAIR, WHEELCHAIR - STEP 4: How many legs does the patient require the helper to lift? both legs TRANSFERS: BED, CHAIR, WHEELCHAIR - SCORE: 3-MOD TRANSFERS: TOILET: TRANSFERS: TOILET - STEP 1: Does the patient require assistance with toilet transfers? Yes. TRANSFERS: TOILET - STEP 2: Does the patient require the assistance of a helper? Yes. TRANSFERS: TOILET - STEP 3: How much assistance does the patient require from the helper? Patient performs half or more of the tr ansferring tasks TRANSFERS: TOILET - STEP 4: Does the patient need only incidental help such as contact guard or steadying during toilet transfer? Yes. TRANSFERS: TOILET - SCORE: 4-MIN TRANSFERS: SHOWER: Activity did not occur on this shift TRANSFERS: SHOWER - SCORE: 0-UNK TRANSFERS: TUB: Activity did not occur on this shift TRANSFERS: TUB - SCORE: 0-UNK LOCOMOTION: WALK: Activity did not occur on this shift LOCOMOTION: WALK - SCORE: 0-UNK LOCOMOTION: WHEELCHAIR: Activity did not occur on this shift LOCOMOTION: WHEELCHAIR - SCORE: 0-UNK COMPREHENSION: COMPREHENSION: TYPE: Both COMPREHENSION - STEP 1: Does the patient require help to understand complex and abstract ideas (such as current events, finan sebastian, discharge planning, medical issues, relationships, etc)? Yes. COMPREHENSION - STEP 2: Does the patient require help to understand questions or statements about basic needs or ideas (such as hunger, thirst, sleep, safety, daily schedule, room location, or discomfort) half or more of the t mohan? No. COMPREHENSION - STEP 3: How often does the patient need help to understand directions and conversation about basic needs? 10% - 24% of the time COMPREHENSION - SCORE: 4-MIN EXPRESSION EXPRESSION: TYPE: Both EXPRESSION - STEP 1: Does the patient require help expressing complex and abstract ideas (such as current events, finances , discharge planning, medical issues, relationships, etc)? No. EXPRESSION - STEP 2: Does the patient need extra time, require an assistive device (such as augmentive communication syste m or a communication board), OR does s/he have mild difficulty expressing complex and abstract ideas (including mild dysarthria or mild word-find problems)? Yes. EXPRESSION - SCORE: 6-LUIS ARMANDO SOCIAL INTERACTION: SOCIAL INTERACTION - STEP 1: Does the patient require a helper to interact with others in social and therapeutic situations? No. SOCIAL INTERACTION - STEP 2: Does the patient need extra time in social situations, OR does s/he interact with staff, other patien ts, and family members ONLY in structured environments, OR does s/he require medication for social in teraction? Yes, patient requires medication for social interaction SOCIAL INTERACTION - SCORE: 6-LUIS ARMANDO PROBLEM SOLVING: PROBLEM SOLVING - STEP 1: Does the patient need help to solve complex problems such as managing a checking account or confronti ng interpersonal problems? No. PROBLEM SOLVING - STEP 2: Does the patient require extra time to make decisions or solve problems, OR does s/he have slight dif ficulty reading, initiating, or self-correcting in unfamiliar situations? Yes, patient needs extra ti me. PROBLEM SOLVING - SCORE: 6-LUIS ARMANDO MEMORY: MEMORY - STEP 1: Does the patient need help to remember frequently encountered people, daily routines, and executing r equests? No. MEMORY - STEP 2: Does the patient have slight difficulty recognizing frequently encountered people, daily routines, or executing requests without the need for repetition or using self-initiated or environmental cues to remember? Yes. MEMORY - SCORE: 6-LUIS ARMANDO SIGNATURE PANEL: The following modified sections: Eating - Score, Grooming - Score, Dressing - Upper Body - Score, Jose ssing - Lower Body - Score, Toileting - Score, Bladder Management - Score, Bowel Management - Score, Transfers: Bed, Chair, Wheelchair - Score, Transfers: Toilet - Score, Transfers: Shower - Score, Kramer sfers: Tub - Score, Locomotion: Walk - Score, Locomotion: Wheelchair - Score, Comprehension - Score, Expression - Score, Social Interaction - Score, Problem Solving - Score, Memory - Score were [electro nically] signed by Sandra Don CNA on SatDec 18 2017 01:13:19 T-0500 (Central Daylight Time)
[2017-12-18] MEDS: FUROSEMIDE 40 MG TABLET PO SCH (05:00)
[2017-12-18] MEDS: PANTOPRAZOLE 40MG TABLET PO SCH (06:28)
[2017-12-18] MEDS: CIPROFLOXACIN 0.3% ML OPHTH OPTH SCH ×2 (07:37→20:00)
[2017-12-18] MEDS: ARFORMOTEROL TARTRATE 15 MCG/2 ML VIAL.NEB NEB SCH ×2 (07:48→20:00)
[2017-12-18] MEDS: LISINOPRIL 20 MG TAB PO SCH (08:00)
[2017-12-18] MEDS: AMLODIPINE 5 MG TAB PO SCH (08:00)
[2017-12-18] MEDS: METOPROLOL TAR 50 MG TAB PO SCH (08:00)
[2017-12-18] MEDS: ALBUTEROL INHALER 60 PUFF/8 GM IH SCH ×4 (08:50→20:30)
[2017-12-18] MEDS: ASPIRIN EC 81 MG TAB PO SCH (08:52)
[2017-12-18] MEDS: SERTRALINE HCL 50 MG TAB PO SCH (08:52)
[2017-12-18] MEDS: predniSONE 20 MG TAB PO SCH (08:53)
[2017-12-18] MEDS: APIXABAN 2.5 MG TABLET PO SCH ×2 (08:53→20:21)
[2017-12-18] MEDS: GABAPENTIN 400 MG CAP PO SCH (08:54)
[2017-12-18] MEDS: PROMOD 30 ML DOSE PO SCH ×2 (08:54→20:20)
--- NOTE | 2017-12-18 11:27 | FAST ---
SHIFT START DATE/TIME: 12/18/2017 07:00 (CDT) SHIFT END DATE/TIME: 12/18/2017 19:00 (CDT) NAME ELIJAH ORTEGA DATE OF : 1950 DATE OF ADMISSION: 12/13/2017 18:47 (CDT) PHONE: AGE: 67 N# [id number] GENDER: Female ENCOUNTER PHYSICIAN: Dr. Pancho De Santiago M.D. ADMISSION DIAGNOSIS: - Medically Complex Conditions 17 - Other Medically Complex Conditions (17.9) colitis. hypertension. chronic Afib. CHF systolic. COPD. Anxiety. EATING: EATING - STEP 1: Does the patient require assistance when eating? Yes. EATING - STEP 2: Does the patient require the assistance of a helper? Yes. EATING - STEP 3: Does the patient perform half or more of the eating tasks? Yes. EATING - STEP 4: Does the patient need only supervision, cuing, coaxing OR help to apply an orthosis OR help to cut fo od, open containers, pour liquids, or butter bread? Yes. EATING - SCORE: 5-SUP GROOMING: Activity did not occur on this shift GROOMING - SCORE: 0-UNK BATHING: Activity did not occur on this shift BATHING - SCORE: 0-UNK DRESSING - UPPER BODY: Activity did not occur on this shift ARTICLES SCORE Total number of steps: 0 DRESSING - UPPER BODY - SCORE: 0-UNK DRESSING - LOWER BODY: Activity did not occur on this shift ARTICLES SCORE Total number of steps: 0 DRESSING - LOWER BODY - SCORE: 0-UNK TOILETING: TOILETING - STEP 1: Does the patient require assistance with toileting? Yes. TOILETING - STEP 2: Does the patient require the assistance of a helper? Yes. TOILETING - STEP 3: How much assistance does the patient require from the helper? Hands-on assistance from the helper TOILETING - STEP 4: Of the 3 tasks: 1) Adjusting clothing prior to use, 2) Cleansing of perineal area, 3) Adjusting clot brooks after use; How many tasks does the patient perform WITHOUT assistance of the helper? Three tasks with steadying assistance from the helper TOILETING - SCORE: 4-MIN BLADDER MANAGEMENT: BLADDER MANAGEMENT - STEP 1: Does the patient control the bladder completely and intentionally without equipment or devices or med ications, and is always continent? No. BLADDER MANAGEMENT - STEP 2: Does the patient require the assistance of a helper? No, patient requires and independently uses an a ssistive device, such as a urinal, bedpan, bedside commode, catheter, absorbent pad, or collecting de vice BLADDER MANAGEMENT - SCORE: 6-LUIS ARMANDO BOWEL MANAGEMENT: Activity did not occur on this shift BOWEL MANAGEMENT - SCORE: 7-IND TRANSFERS: BED, CHAIR, WHEELCHAIR: TRANSFERS: BED, CHAIR, WHEELCHAIR - STEP 1: Does the patient require assistance with bed, chair, or wheelchair transfers? Yes. TRANSFERS: BED, CHAIR, WHEELCHAIR - STEP 2: Does the patient require the assistance of a helper? Yes. TRANSFERS: BED, CHAIR, WHEELCHAIR - STEP 3: How much assistance does the patient require from the helper? Steadying/guiding assistance TRANSFERS: BED, CHAIR, WHEELCHAIR - SCORE: 4-MIN TRANSFERS: TOILET: TRANSFERS: TOILET - STEP 1: Does the patient require assistance with toilet transfers? Yes. TRANSFERS: TOILET - STEP 2: Does the patient require the assistance of a helper? Yes. TRANSFERS: TOILET - STEP 3: How much assistance does the patient require from the helper? Patient performs half or more of the tr ansferring tasks TRANSFERS: TOILET - STEP 4: Does the patient need only incidental help such as contact guard or steadying during toilet transfer? Yes. TRANSFERS: TOILET - SCORE: 4-MIN TRANSFERS: SHOWER: Activity did not occur on this shift TRANSFERS: SHOWER - SCORE: 0-UNK TRANSFERS: TUB: Activity did not occur on this shift TRANSFERS: TUB - SCORE: 0-UNK LOCOMOTION: WALK: Activity did not occur on this shift LOCOMOTION: WALK - SCORE: 0-UNK LOCOMOTION: WHEELCHAIR: Activity did not occur on this shift LOCOMOTION: WHEELCHAIR - SCORE: 0-UNK COMPREHENSION: COMPREHENSION: TYPE: Both COMPREHENSION - STEP 1: Does the patient require help to understand complex and abstract ideas (such as current events, finan sebastian, discharge planning, medical issues, relationships, etc)? Yes. COMPREHENSION - STEP 2: Does the patient require help to understand questions or statements about basic needs or ideas (such as hunger, thirst, sleep, safety, daily schedule, room location, or discomfort) half or more of the t mohan? No. COMPREHENSION - STEP 3: How often does the patient need help to understand directions and conversation about basic needs? Les s than 10% of the time COMPREHENSION - SCORE: 5-SUP EXPRESSION EXPRESSION: TYPE: Both EXPRESSION - STEP 1: Does the patient require help expressing complex and abstract ideas (such as current events, finances , discharge planning, medical issues, relationships, etc)? No. EXPRESSION - STEP 2: Does the patient need extra time, require an assistive device (such as augmentive communication syste m or a communication board), OR does s/he have mild difficulty expressing complex and abstract ideas (including mild dysarthria or mild word-find problems)? Yes. EXPRESSION - SCORE: 6-LUIS ARMANDO SOCIAL INTERACTION: SOCIAL INTERACTION - STEP 1: Does the patient require a helper to interact with others in social and therapeutic situations? No. SOCIAL INTERACTION - STEP 2: Does the patient need extra time in social situations, OR does s/he interact with staff, other patien ts, and family members ONLY in structured environments, OR does s/he require medication for social in teraction? Yes, patient needs extra time SOCIAL INTERACTION - SCORE: 6-LUIS ARMANDO PROBLEM SOLVING: PROBLEM SOLVING - STEP 1: Does the patient need help to solve complex problems such as managing a checking account or confronti ng interpersonal problems? Yes. PROBLEM SOLVING - STEP 2: Does the patient solve basic routine problems half or more of the time? Yes. PROBLEM SOLVING - STEP 3: How often does the patient need help to solve basic routine problems? Less than 10% of the time PROBLEM SOLVING - SCORE: 5-SUP MEMORY: MEMORY - STEP 1: Does the patient need help to remember frequently encountered people, daily routines, and executing r equests? No. MEMORY - STEP 2: Does the patient have slight difficulty recognizing frequently encountered people, daily routines, or executing requests without the need for repetition or using self-initiated or environmental cues to remember? No. MEMORY - SCORE: 7-IND SIGNATURE PANEL: The following modified sections: Memory - Score, Problem Solving - Score, Social Interaction - Score, Expression - Score, Comprehension - Score, Locomotion: Wheelchair - Score, Locomotion: Walk - Score, Transfers: Tub - Score, Transfers: Shower - Score, Transfers: Toilet - Score, Transfers: Bed, Chair, Wheelchair - Score, Bowel Management - Score, Bladder Management - Score, Toileting - Score, Dressin g - Lower Body - Score, Dressing - Upper Body - Score, Bathing - Score, Grooming - Score, Eating - Sc ore were [electronically] signed by Endy Strong on SatDec 18 2017 11:26:26 GMT-0500 (Central Daylight Time)
--- NOTE | 2017-12-18 12:16 | RAD REPORT ---
EXAM DESCRIPTION: RAD - Ribs Left - 12/18/2017 12:01 pm CLINICAL HISTORY: c/o pain Left-sided chest pain COMPARISON: Chest Single View dated 11/14/2017; Chest Abdomen Pelvis W Cont dated 12/10/2017 FINDINGS: Minimally displaced fractures of the lateral third, fourth, fifth and sixth ribs seen. No underlying pneumothorax.
[2017-12-18] MEDS: LIDOCAINE 5% PATCH TOP SCH (14:57)
--- NOTE | 2017-12-18 16:08 | FAST ---
ENCOUNTER DATE AND TIME: 12/18/2017 08:00 (CDT) NAME ELIJAH ORTEGA DATE OF : 1950 DATE OF ADMISSION: 12/13/2017 18:47 (CDT) PHONE: AGE: 67 SSN# [id number] GENDER: Female ENCOUNTER PHYSICIAN: Dr. Pancho De Santiago M.D. ADMISSION DIAGNOSIS: - Medically Complex Conditions 17 - Other Medically Complex Conditions (17.9) colitis. hypertension. chronic Afib. CHF systolic. COPD. Anxiety. EATING: Activity did not occur on this shift EATING - SCORE: 0-UNK GROOMING: Activity did not occur on this shift GROOMING - SCORE: 0-UNK BATHING: Activity did not occur on this shift BATHING - SCORE: 0-UNK DRESSING - UPPER BODY: Activity did not occur on this shift Patient is not dressing in public clothing ARTICLES SCORE Total number of steps: 0 DRESSING - UPPER BODY - SCORE: 0-UNK DRESSING - LOWER BODY: Activity did not occur on this shift Patient is not dressing in public clothing ARTICLES SCORE Total number of steps: 0 DRESSING - LOWER BODY - SCORE: 0-UNK TOILETING: Activity did not occur on this shift TOILETING - SCORE: 0-UNK BLADDER MANAGEMENT: Activity did not occur on this shift BLADDER MANAGEMENT - SCORE: 7-IND BOWEL MANAGEMENT: Activity did not occur on this shift BOWEL MANAGEMENT - SCORE: 7-IND TRANSFERS: BED, CHAIR, WHEELCHAIR: TRANSFERS: BED, CHAIR, WHEELCHAIR - STEP 1: Does the patient require assistance with bed, chair, or wheelchair transfers? Yes. TRANSFERS: BED, CHAIR, WHEELCHAIR - STEP 2: Does the patient require the assistance of a helper? Yes. TRANSFERS: BED, CHAIR, WHEELCHAIR - STEP 3: How much assistance does the patient require from the helper? Only supervision TRANSFERS: BED, CHAIR, WHEELCHAIR - SCORE: 5-SUP TRANSFERS: TOILET: TRANSFERS: TOILET - STEP 1: Does the patient require assistance with toilet transfers? Yes. TRANSFERS: TOILET - STEP 2: Does the patient require the assistance of a helper? Yes. TRANSFERS: TOILET - STEP 3: How much assistance does the patient require from the helper? Only supervision, cuing, coaxing, OR he lp to set out transfer equipment or to lock brakes and/or lift foot rests TRANSFERS: TOILET - SCORE: 5-SUP TRANSFERS: SHOWER: Activity did not occur on this shift TRANSFERS: SHOWER - SCORE: 0-UNK TRANSFERS: TUB: Activity did not occur on this shift TRANSFERS: TUB - SCORE: 0-UNK LOCOMOTION: WALK: LOCOMOTION: WALK - STEP 1: Does the patient need help to walk 150 feet? Yes. LOCOMOTION: WALK - STEP 2: How much assistance does the patient require to walk a minimum of 150 feet? Patient walks less than 1 50 feet - but more than 50 feet - with the assistance of only one helper LOCOMOTION: WALK - SCORE: 2-MAX LOCOMOTION: WHEELCHAIR: Activity did not occur on this shift LOCOMOTION: WHEELCHAIR - SCORE: 0-UNK LOCOMOTION: STAIRS: Activity did not occur on this shift LOCOMOTION: STAIRS - SCORE: 0-UNK COMPREHENSION: COMPREHENSION - SCORE: 0-UNK EXPRESSION EXPRESSION - SCORE: 0-UNK SOCIAL INTERACTION: SOCIAL INTERACTION - SCORE: 0-UNK PROBLEM SOLVING: PROBLEM SOLVING - SCORE: 0-UNK MEMORY: MEMORY - SCORE: 0-UNK SIGNATURE PANEL: The following modified sections: Transfers: Bed, Chair, Wheelchair - Score, Transfers: Toilet - Score , Locomotion: Walk - Score, Locomotion: Wheelchair - Score, Locomotion: Stairs - Score were [electron matias] signed by Henrry Murphy PT on SatDec 18 2017 16:07:31 T-0500 (Central Daylight Time)
--- NOTE | 2017-12-18 18:50 | R.PN ---
ENCOUNTER DATE AND TIME: 12/18/2017 18:46 (CDT) NAME ELIJAH ORTEGA DATE OF : 1950 DATE OF ADMISSION: 12/13/2017 18:47 (CDT) colitishypertensionchronic AfibCHF systolicCOPDAnxietyCHIEF COMPLAINT: Debility SUBJECTIVE: Pt denied any Shortness of Breath. Pt denied any depression. Ambulated 140' with rolling walker with standby assistance. Eating mechanical soft diet with chopped meats and requiring supervision. Chest x-ray shows 4 broken ribs on the left side. Will add pain patch to left chest. Increase gabape ntin to 600 mg twice daily. VITAL SIGNS Temperature: 97.8F SBP/DBP: 113/68 Pulse: 68 Resp: 16 MEDICATION ALLERGIES: amitriptyline HCI Ciprofloxacin Phenobarbital ENVIRONMENTAL ALLERGIES: - Substance Allergies None Known - Other Allergies None Known NURSING: - Shower allowing shower ACTIVITIES OOB only with supervision THERAPIES: - Occupational Therapy Evaluate and Treat. - Physical Therapy Evaluate and Treat. PHYSICAL EXAM - Gen Alert and awake Lying in bed No apparent distress Oriented to: person, time, and place - Skin No skin breakdown. Normacephalic - Eyes No abnormalities - ENMT No abnormalities - Neck No abnormalities - CVS RRR - Chest Clear - Abd Soft - GI Non distended Deferred - No abnormalities - Ext No significant edema - MSK 4/5 weakness in both lower extremities. - Neuro No focal deficits - Psych No abnormalities ASSESSMENT: Pt. is a 67 yo Right-handed white female.On 12/10/2017 she was admitted to [facility] with diagnosis colitis.Her impairment category is Medically Complex Conditions 17 - Other Med ically Complex Conditions (17.9).Pre-morbidly, Pt. was independent/mod-I in Sphincter Control, Commun ication, Social Cognition, Self-Care, and Locomotion; and she had good Sphincter Control.Currently, s he has deficits of Endurance, Safety Awareness, Transfers Control, Communication, Social Cognition, B alance, Locomotion, and Self-Care.Pt. is now referred to [facility] for acute in-patient rehabilitation in order to maximize patient's functional independence in activities of ruddy ly living, strength, ROM, and mobility.- Rehab Goal Patient has realistic goal of being discharged at assistance level 6-Zainab to reside at Home with Fam genevieve/Relatives. MDM/PLAN: - Physical Therapy Gait dysfunction - to improve, our physical therapists will perform initial evaluation of pt's statu s upon admission and devise an individualized program for Gait Training, and Wheel Chair mobility Inability to transfer - to improve, our physical therapists will perform initial evaluation of pt's status upon admission and devise an individualized program for Bed mobility Need for home safety evaluation - to improve, our physical therapists will perform initial evaluatio n of pt's status upon admission and devise an individualized program for Home Evaluation Need in caregiver upon discharge - to improve, our physical therapists will perform initial evaluati on of pt's status upon admission and devise an individualized program for Caregiver Training Edema - to improve, our physical therapists will perform initial evaluation of pt's status upon admi ssion and devise an individualized program for Elevation Training, and Lymphedema Therapy New precaution - to improve, our physical therapists will perform initial evaluation of pt's status upon admission and devise an individualized program for Patient precaution education Poor balance - to improve, our physical therapists will perform initial evaluation of pt's status up on admission and devise an individualized program for Balance Training Poor endurance - to improve, our physical therapists will perform initial evaluation of pt's status upon admission and devise an individualized program for Endurance Training Weakness - to improve, our physical therapists will perform initial evaluation of pt's status upon a dmission and devise an individualized program for Aquatic Therapy, Neuromuscular Reeducation, and Str engthening Achieving independence - to improve, our physical therapists will perform initial evaluation of pt's status upon admission and devise an individualized program for Community Reintegration Activities - Occupational Therapy ADL deficits - to improve, our occupation therapists will perform initial evaluation of pt's status upon admission and devise an individualized program for Bathing, Bed mobility, Community Reintegratio n, Cooking, Dressing, Eating, Fine Motor Skills, Grooming, Homemaking, Kitchen Mobility, Laundry, Pat ient Education, Safety Awareness, Splinting - Positioning, Transfers(Toilet, Tub, Shower), and Wheel Chair Management Cognitive deficits - to improve, our occupation therapists will perform initial evaluation of pt's s tatus upon admission and devise an individualized program for Cognition - orientation Need for skin care technician - to improve, our occupation therapists will perform initial evaluation of pt's status upon admission and devise an individualized program for Caregiver Training Weakness - to improve, our occupation therapists will perform initial evaluation of pt's status upon admission and devise an individualized program for Aquatic Therapy, Balance, Endurance, UE ROM, and UE strengthening - Diet Type Continue Regular - Diet - Liquid Texture Continue Regular - Tube Feed Continue N/A - Diet - Solid Texture Continue Regular - Shower allowing shower FUNCTIONAL STATUS: UPDATED AT WEEKLY TEAM CONFERENCE - Bladder Same Bladder control device used: diaper Same accident frequency: 7-Ind - No accidents in the past 7 days - Bowel Same Bowel control device used: diaper Same accident frequency: 7-Ind - No accidents in the past 7 days - Walking Same score based on distance walked: 0(N/A) - Wheelchair Same score based on distance traveled: 0(N/A) FUNCTIONAL STATUS: - Self-Care A. Eating Ind B. Grooming Ind C. Bathing maxA D. Dressing - Upper sup E. Dressing - Lower maxA F. Toileting Dep - Sphincter Control G: Bladder control Dep H: Bowel control Dep - Transfers Control I. Bed/Chair/Wheelchair modA J. Toilet modA K. Tub/Shower modA - Locomotion L. Walk/Wheelchair (B) maxA M. Stairs ADNO - Communication N. Comprehension (B) sup O. Expression (B) sup - Social Cognition P. Social Interaction sup Q. Problem Solving sup R. Memory sup - Endurance Poor - Balance Fair - Safety Awareness Poor CURRENT FUNC. DEFICITS: Endurance, Safety Awareness, Transfers Control, Communication, Social Cognition, Balance, Locomotion, and Self-Care SIGNATURE PANEL: (CDT)
[2017-12-18] MEDS: CRANBERRY FRUIT EXTRACT 200 MG CAP PO SCH (20:20)
[2017-12-18] MEDS: GABAPENTIN 300 MG CAP PO SCH (20:20)
--- NOTE | 2017-12-19 03:01 | FAST ---
SHIFT START DATE/TIME: 12/18/2017 19:00 (CDT) SHIFT END DATE/TIME: 12/19/2017 07:00 (CDT) NAME ELIJAH ORTEGA DATE OF : 1950 DATE OF ADMISSION: 12/13/2017 18:47 (CDT) PHONE: AGE: 67 N# [id number] GENDER: Female ENCOUNTER PHYSICIAN: Dr. Pancho De Santiago M.D. ADMISSION DIAGNOSIS: - Medically Complex Conditions 17 - Other Medically Complex Conditions (17.9) colitis. hypertension. chronic Afib. CHF systolic. COPD. Anxiety. EATING: Activity did not occur on this shift EATING - SCORE: 0-UNK GROOMING: Activity did not occur on this shift GROOMING - SCORE: 0-UNK BATHING: Activity did not occur on this shift BATHING - SCORE: 0-UNK DRESSING - UPPER BODY: Activity did not occur on this shift ARTICLES SCORE Total number of steps: 0 DRESSING - UPPER BODY - SCORE: 0-UNK DRESSING - LOWER BODY: Activity did not occur on this shift ARTICLES SCORE Total number of steps: 0 DRESSING - LOWER BODY - SCORE: 0-UNK TOILETING: TOILETING - STEP 1: Does the patient require assistance with toileting? Yes. TOILETING - STEP 2: Does the patient require the assistance of a helper? Yes. TOILETING - STEP 3: How much assistance does the patient require from the helper? Hands-on assistance from the helper TOILETING - STEP 4: Of the 3 tasks: 1) Adjusting clothing prior to use, 2) Cleansing of perineal area, 3) Adjusting clot brooks after use; How many tasks does the patient perform WITHOUT assistance of the helper? One task TOILETING - SCORE: 2-MAX BLADDER MANAGEMENT: BLADDER MANAGEMENT - STEP 1: Does the patient control the bladder completely and intentionally without equipment or devices or med ications, and is always continent? No. BLADDER MANAGEMENT - STEP 2: Does the patient require the assistance of a helper? Yes. BLADDER MANAGEMENT - STEP 3: How much assistance does the patient require from the helper? Patient requires contact assistance fro m the helper BLADDER MANAGEMENT - STEP 4: How much contact assistance does the patient require from the helper? Patient requires minimal assist ance to maintain an external device - by positioning, and the patient performs 75% or more of bladder management tasks, while the helper provides less than 25% of the assistance to position patient on / off bedpan BLADDER MANAGEMENT - SCORE: 4-MIN BOWEL MANAGEMENT: Activity did not occur on this shift BOWEL MANAGEMENT - SCORE: 7-IND TRANSFERS: BED, CHAIR, WHEELCHAIR: Activity did not occur on this shift TRANSFERS: BED, CHAIR, WHEELCHAIR - SCORE: 0-UNK TRANSFERS: TOILET: Activity did not occur on this shift TRANSFERS: TOILET - SCORE: 0-UNK TRANSFERS: SHOWER: Activity did not occur on this shift TRANSFERS: SHOWER - SCORE: 0-UNK TRANSFERS: TUB: Activity did not occur on this shift TRANSFERS: TUB - SCORE: 0-UNK LOCOMOTION: WALK: Activity did not occur on this shift LOCOMOTION: WALK - SCORE: 0-UNK LOCOMOTION: WHEELCHAIR: Activity did not occur on this shift LOCOMOTION: WHEELCHAIR - SCORE: 0-UNK COMPREHENSION: COMPREHENSION: TYPE: Both COMPREHENSION - STEP 1: Does the patient require help to understand complex and abstract ideas (such as current events, finan sebastian, discharge planning, medical issues, relationships, etc)? No. COMPREHENSION - STEP 2: Does the patient need extra time, require an assistive device (such as glasses for visual comprehensi on or a hearing aid for auditory comprehension) or does s/he have mild difficulty understanding compl ex and abstract information? Yes. COMPREHENSION - SCORE: 6-LUIS ARMANDO EXPRESSION EXPRESSION: TYPE: Both EXPRESSION - STEP 1: Does the patient require help expressing complex and abstract ideas (such as current events, finances , discharge planning, medical issues, relationships, etc)? No. EXPRESSION - STEP 2: Does the patient need extra time, require an assistive device (such as augmentive communication syste m or a communication board), OR does s/he have mild difficulty expressing complex and abstract ideas (including mild dysarthria or mild word-find problems)? Yes. EXPRESSION - SCORE: 6-LUIS ARMANDO SOCIAL INTERACTION: SOCIAL INTERACTION - STEP 1: Does the patient require a helper to interact with others in social and therapeutic situations? No. SOCIAL INTERACTION - STEP 2: Does the patient need extra time in social situations, OR does s/he interact with staff, other patien ts, and family members ONLY in structured environments, OR does s/he require medication for social in teraction? Yes, patient requires medication for social interaction SOCIAL INTERACTION - SCORE: 6-LUIS ARMANDO PROBLEM SOLVING: PROBLEM SOLVING - STEP 1: Does the patient need help to solve complex problems such as managing a checking account or confronti ng interpersonal problems? No. PROBLEM SOLVING - STEP 2: Does the patient require extra time to make decisions or solve problems, OR does s/he have slight dif ficulty reading, initiating, or self-correcting in unfamiliar situations? Yes, patient needs extra ti me. PROBLEM SOLVING - SCORE: 6-LUIS ARMANDO MEMORY: MEMORY - STEP 1: Does the patient need help to remember frequently encountered people, daily routines, and executing r equests? No. MEMORY - STEP 2: Does the patient have slight difficulty recognizing frequently encountered people, daily routines, or executing requests without the need for repetition or using self-initiated or environmental cues to remember? Yes. MEMORY - SCORE: 6-LUIS ARMANDO SIGNATURE PANEL: The following modified sections: Eating - Score, Grooming - Score, Bathing - Score, Dressing - Upper Body - Score, Dressing - Lower Body - Score, Toileting - Score, Bladder Management - Score, Bowel Man agement - Score, Transfers: Bed, Chair, Wheelchair - Score, Transfers: Toilet - Score, Transfers: Yuli wer - Score, Transfers: Tub - Score, Locomotion: Walk - Score, Locomotion: Wheelchair - Score, Compre hension - Score, Expression - Score, Social Interaction - Score, Problem Solving - Score, Memory - Sc ore were [electronically] signed by Elizabeth Bartlett on SatDec 19 2017 03:01:22 GMT-0500 (Central Day light Time)
[2017-12-19] MEDS: FUROSEMIDE 40 MG TABLET PO SCH (05:00)
[2017-12-19] MEDS: Oxycodone HCl/Acetaminophen 1 TAB TAB PO PRN ×5 (05:01→20:33)
[2017-12-19] MEDS: PANTOPRAZOLE 40MG TABLET PO SCH (06:12)
[2017-12-19 06:35] LABS: Absolute Monocytes 0.9 K/uL (0.1-1.3); Absolute Neutrophil 8.4 K/uL (1.8-8.0); Basophils % 0.2 % (0-1.3); Eosinophils % 0.2 % (0-4.4); Lymphocytes % 17.6 % (15.3-44.8); MCH 28.6 pg (27.0-35.0); MCV 87.3 fL (80-100); MPV 7.4 fL (7.6-11.3); Monocytes % 7.7 % (3.3-12.3)
[2017-12-19 06:54] LABS: Albumin 2.8 g/dL (3.4-5.0); Potassium 4.6 mmol/L (3.5-5.1); Prealbumin 22.7 mg/dL (20-40)
[2017-12-19] MEDS: PROMOD 30 ML DOSE PO SCH ×2 (08:00→20:31)
[2017-12-19] MEDS: CIPROFLOXACIN 0.3% ML OPHTH OPTH SCH ×2 (08:00→20:00)
[2017-12-19] MEDS ORDERED: LIDOCAINE 5% PATCH TOP SCH (08:00)
[2017-12-19] MEDS: LIDOCAINE 5% PATCH TOP SCH (09:00)
[2017-12-19] MEDS: AMLODIPINE 5 MG TAB PO SCH (09:00)
[2017-12-19] MEDS: ASPIRIN EC 81 MG TAB PO SCH (09:00)
[2017-12-19] MEDS: DIPHENHYDRAMINE 25 MG TAB/CAP PO PRN ×2 (09:00→20:40)
[2017-12-19] MEDS: GABAPENTIN 300 MG CAP PO SCH ×2 (09:00→20:32)
[2017-12-19] MEDS: ALBUTEROL INHALER 60 PUFF/8 GM IH SCH ×4 (09:00→20:40)
[2017-12-19] MEDS: CRANBERRY FRUIT EXTRACT 200 MG CAP PO SCH ×2 (09:00→20:32)
[2017-12-19] MEDS: LISINOPRIL 20 MG TAB PO SCH (09:00)
[2017-12-19] MEDS: SERTRALINE HCL 50 MG TAB PO SCH (09:01)
[2017-12-19] MEDS: METOPROLOL TAR 50 MG TAB PO SCH (09:01)
[2017-12-19] MEDS: APIXABAN 2.5 MG TABLET PO SCH ×2 (09:02→20:32)
[2017-12-19] MEDS: predniSONE 20 MG TAB PO SCH (09:02)
--- NOTE | 2017-12-19 09:27 | FAST ---
ENCOUNTER DATE AND TIME: 12/17/2017 08:00 (CDT) NAME ELIJAH ORTEGA DATE OF : 1950 DATE OF ADMISSION: 12/13/2017 18:47 (CDT) PHONE: AGE: 67 N# [id number] GENDER: Female ENCOUNTER PHYSICIAN: Dr. Pancho De Santiago M.D. ADMISSION DIAGNOSIS: - Medically Complex Conditions 17 - Other Medically Complex Conditions (17.9) colitis. hypertension. chronic Afib. CHF systolic. COPD. Anxiety. EATING: EATING - STEP 1: Does the patient require assistance when eating? No. EATING - SCORE: 7-IND GROOMING: Comb/brush hair Oral care Wash, rinse, and dry face Wash, rinse, and dry hands GROOMING - STEP 1: Does the patient require assistance when grooming? Yes. GROOMING - STEP 2: Does the patient require the assistance of a helper? Yes. GROOMING - STEP 3: How much assistance does the patient require from the helper? Incidental touching assistance from the helper while grooming GROOMING - SCORE: 4-MIN BATHING: Abdomen Buttocks Chest Left arm Left lower leg and foot Left upper leg Perineal area Right arm Right lower leg and foot Right upper leg BATHING - STEP 1: Does the patient require assistance when bathing? Yes. BATHING - STEP 2: Does the patient require the assistance of a helper? Yes. BATHING - STEP 3: How much assistance does the patient require from the helper? Only incidental help such as placement of a wash cloth in his/her hand a few times as s/he bathes OR help to bathe just one or two areas of the body BATHING - SCORE: 4-MIN DRESSING - UPPER BODY: Sweater (four steps) T-shirt/pullover shirt (four steps) ARTICLES SCORE Total number of steps: 8 DRESSING - UPPER BODY - STEP 1: Does the patient require help when dressing above the waist? Yes. DRESSING - UPPER BODY - STEP 2: Does the patient require the assistance of a helper? Yes. DRESSING - UPPER BODY - STEP 3: Does the helper touch the patient while dressing? Yes. DRESSING - UPPER BODY - STEP 4: How many of the total steps does the patient complete on his/her own? 6 DRESSING - UPPER BODY - SCORE: 4-MIN DRESSING - LOWER BODY: Sock - Left foot (one step) Sock - Right foot (one step) Underwear (three steps) ARTICLES SCORE Total number of steps: 5 DRESSING - LOWER BODY - STEP 1: Does the patient require help when dressing below the waist? Yes. DRESSING - LOWER BODY - STEP 2: Does the patient require the assistance of a helper? Yes. DRESSING - LOWER BODY - STEP 3: Does the helper touch the patient while dressing? Yes. DRESSING - LOWER BODY - STEP 4: How many of the total steps does the patient complete on his/her own? 1 DRESSING - LOWER BODY - STEP 5: Does patient require total assistance for dressing below the waist such as the helper holding clothin g and performing basically all the activities? No. DRESSING - LOWER BODY - SCORE: 2-MAX TOILETING: Activity did not occur on this shift TOILETING - SCORE: 0-UNK BLADDER MANAGEMENT: Activity did not occur on this shift BLADDER MANAGEMENT - SCORE: 7-IND BOWEL MANAGEMENT: Activity did not occur on this shift BOWEL MANAGEMENT - SCORE: 7-IND TRANSFERS: BED, CHAIR, WHEELCHAIR: Activity did not occur on this shift TRANSFERS: BED, CHAIR, WHEELCHAIR - SCORE: 0-UNK TRANSFERS: TOILET: Activity did not occur on this shift TRANSFERS: TOILET - SCORE: 0-UNK TRANSFERS: SHOWER: TRANSFERS: SHOWER - STEP 1: Does the patient require assistance with shower transfers? Yes. TRANSFERS: SHOWER - STEP 2: Does the patient require the assistance of a helper? Yes. TRANSFERS: SHOWER - STEP 3: How much assistance does the patient require from the helper? Only incidental help such as contact gu arding or steadying during shower transfers, or help to lift one leg into the shower TRANSFERS: SHOWER - SCORE: 4-MIN TRANSFERS: TUB: Activity did not occur on this shift TRANSFERS: TUB - SCORE: 0-UNK LOCOMOTION: WALK: Activity did not occur on this shift LOCOMOTION: WALK - SCORE: 0-UNK LOCOMOTION: WHEELCHAIR: Activity did not occur on this shift LOCOMOTION: WHEELCHAIR - SCORE: 0-UNK LOCOMOTION: STAIRS: Activity did not occur on this shift LOCOMOTION: STAIRS - SCORE: 0-UNK COMPREHENSION: COMPREHENSION: TYPE: Both COMPREHENSION - STEP 1: Does the patient require help to understand complex and abstract ideas (such as current events, finan sebastian, discharge planning, medical issues, relationships, etc)? No. COMPREHENSION - STEP 2: Does the patient need extra time, require an assistive device (such as glasses for visual comprehensi on or a hearing aid for auditory comprehension) or does s/he have mild difficulty understanding compl ex and abstract information? No. COMPREHENSION - SCORE: 7-IND EXPRESSION EXPRESSION: TYPE: Both EXPRESSION - STEP 1: Does the patient require help expressing complex and abstract ideas (such as current events, finances , discharge planning, medical issues, relationships, etc)? No. EXPRESSION - STEP 2: Does the patient need extra time, require an assistive device (such as augmentive communication syste m or a communication board), OR does s/he have mild difficulty expressing complex and abstract ideas (including mild dysarthria or mild word-find problems)? No. EXPRESSION - SCORE: 7-IND SOCIAL INTERACTION: SOCIAL INTERACTION - STEP 1: Does the patient require a helper to interact with others in social and therapeutic situations? No. SOCIAL INTERACTION - STEP 2: Does the patient need extra time in social situations, OR does s/he interact with staff, other patien ts, and family members ONLY in structured environments, OR does s/he require medication for social in teraction? Yes, patient needs extra time SOCIAL INTERACTION - SCORE: 6-LUIS ARMANDO PROBLEM SOLVING: PROBLEM SOLVING - STEP 1: Does the patient need help to solve complex problems such as managing a checking account or confronti ng interpersonal problems? No. PROBLEM SOLVING - STEP 2: Does the patient require extra time to make decisions or solve problems, OR does s/he have slight dif ficulty reading, initiating, or self-correcting in unfamiliar situations? Yes, patient needs extra ti me. PROBLEM SOLVING - SCORE: 6-LUIS ARMANDO MEMORY: MEMORY - STEP 1: Does the patient need help to remember frequently encountered people, daily routines, and executing r equests? No. MEMORY - STEP 2: Does the patient have slight difficulty recognizing frequently encountered people, daily routines, or executing requests without the need for repetition or using self-initiated or environmental cues to remember? Yes. MEMORY - SCORE: 6-LUIS ARMANDO SIGNATURE PANEL: The following modified sections: Eating - Score, Grooming - Score, Bathing - Score, Dressing - Upper Body - Score, Dressing - Lower Body - Score, Toileting - Score, Transfers: Bed, Chair, Wheelchair - S core, Transfers: Toilet - Score, Transfers: Shower - Score, Transfers: Tub - Score, Comprehension - S core, Expression - Score, Social Interaction - Score, Problem Solving - Score, Memory - Score were [e lectronically] signed by Nellie Reid OT on SatDec 19 2017 09:26:53 GMT-0500 (Central Daylight T mohan)
[2017-12-19] MEDS: ARFORMOTEROL TARTRATE 15 MCG/2 ML VIAL.NEB NEB SCH ×2 (14:15→20:50)
--- NOTE | 2017-12-19 14:53 | FAST ---
SHIFT START DATE/TIME: 12/19/2017 07:00 (CDT) SHIFT END DATE/TIME: 12/19/2017 19:00 (CDT) NAME ELIJAH ORTEGA DATE OF : 1950 DATE OF ADMISSION: 12/13/2017 18:47 (CDT) PHONE: AGE: 67 N# [id number] GENDER: Female ENCOUNTER PHYSICIAN: Dr. Pancho De Santiago M.D. ADMISSION DIAGNOSIS: - Medically Complex Conditions 17 - Other Medically Complex Conditions (17.9) colitis. hypertension. chronic Afib. CHF systolic. COPD. Anxiety. EATING: EATING - STEP 1: Does the patient require assistance when eating? Yes. EATING - STEP 2: Does the patient require the assistance of a helper? No, patient only requires an assistive device, O R s/he takes more than reasonable time to eat, OR there is a safety concern, OR s/he requires modifie d food consistency EATING - SCORE: 6-LUIS ARMANDO GROOMING: Comb/brush hair Wash, rinse, and dry face Wash, rinse, and dry hands GROOMING - STEP 1: Does the patient require assistance when grooming? Yes. GROOMING - STEP 2: Does the patient require the assistance of a helper? No. The patient only requires an assistive devic e, OR takes more than reasonable time to groom, OR there is a concern for safety as the patient groom s GROOMING - SCORE: 6-LUIS ARMANDO BATHING: Activity did not occur on this shift BATHING - SCORE: 0-UNK DRESSING - UPPER BODY: T-shirt/pullover shirt (four steps) ARTICLES SCORE Total number of steps: 4 DRESSING - UPPER BODY - STEP 1: Does the patient require help when dressing above the waist? Yes. DRESSING - UPPER BODY - STEP 2: Does the patient require the assistance of a helper? No. Patient only requires an assistive device, s uch as a button hook, velcro, or tc operator. OR s/he takes more than reasonable time as s/he dresses the upper body. OR there is a concern for safety when s/he dresses the upper body DRESSING - UPPER BODY - SCORE: 6-LUIS ARMANDO DRESSING - LOWER BODY: Underwear (three steps) ARTICLES SCORE Total number of steps: 3 DRESSING - LOWER BODY - STEP 1: Does the patient require help when dressing below the waist? Yes. DRESSING - LOWER BODY - STEP 2: Does the patient require the assistance of a helper? No. Patient requires an assistive device such as a tc operator. OR s/he takes more than reasonable time as s/he dresses the lower body, OR there is a con cern for safety when s/he dresses the lower body DRESSING - LOWER BODY - SCORE: 6-LUIS ARMANDO TOILETING: TOILETING - STEP 1: Does the patient require assistance with toileting? Yes. TOILETING - STEP 2: Does the patient require the assistance of a helper? Yes. TOILETING - STEP 3: How much assistance does the patient require from the helper? Only supervision TOILETING - SCORE: 5-SUP BLADDER MANAGEMENT: Elmo removes incontinent device (Depends, pull ups, etc.); cleans the patient after accident / inco ntinent episode; and, applies new incontinent device. BLADDER MANAGEMENT - SCORE: 1-DEP BLADDER MANAGEMENT - FREQUENCY OF ACCIDENTS: BLADDER MANAGEMENT(FA) - STEP 1: How many accidents has the patient had during the current shift? 2 BOWEL MANAGEMENT: Activity did not occur on this shift BOWEL MANAGEMENT - SCORE: 7-IND BOWEL MANAGEMENT - FREQUENCY OF ACCIDENTS: BOWEL MANAGEMENT(FA) - STEP 1: How many accidents has the patient had during the current shift? 0 TRANSFERS: BED, CHAIR, WHEELCHAIR: TRANSFERS: BED, CHAIR, WHEELCHAIR - STEP 1: Does the patient require assistance with bed, chair, or wheelchair transfers? Yes. TRANSFERS: BED, CHAIR, WHEELCHAIR - STEP 2: Does the patient require the assistance of a helper? Yes. TRANSFERS: BED, CHAIR, WHEELCHAIR - STEP 3: How much assistance does the patient require from the helper? Lifting of the legs TRANSFERS: BED, CHAIR, WHEELCHAIR - STEP 4: How many legs does the patient require the helper to lift? one leg TRANSFERS: BED, CHAIR, WHEELCHAIR - SCORE: 4-MIN TRANSFERS: TOILET: TRANSFERS: TOILET - STEP 1: Does the patient require assistance with toilet transfers? Yes. TRANSFERS: TOILET - STEP 2: Does the patient require the assistance of a helper? No. Patient only requires an assistive device benitez ch as a grab bar or special seat, OR s/he takes more than reasonable time to perform toilet transfers , OR there is a safety concern when s/he performs toilet transfers. TRANSFERS: TOILET - SCORE: 6-LUIS ARMANDO TRANSFERS: SHOWER: Activity did not occur on this shift TRANSFERS: SHOWER - SCORE: 0-UNK TRANSFERS: TUB: Activity did not occur on this shift TRANSFERS: TUB - SCORE: 0-UNK LOCOMOTION: WALK: Activity did not occur on this shift LOCOMOTION: WALK - SCORE: 0-UNK LOCOMOTION: WHEELCHAIR: Activity did not occur on this shift LOCOMOTION: WHEELCHAIR - SCORE: 0-UNK COMPREHENSION: COMPREHENSION: TYPE: Visual COMPREHENSION - STEP 1: Does the patient require help to understand complex and abstract ideas (such as current events, finan sebastian, discharge planning, medical issues, relationships, etc)? No. COMPREHENSION - STEP 2: Does the patient need extra time, require an assistive device (such as glasses for visual comprehensi on or a hearing aid for auditory comprehension) or does s/he have mild difficulty understanding compl ex and abstract information? Yes. COMPREHENSION - SCORE: 6-LUIS ARMANDO EXPRESSION EXPRESSION: TYPE: Both EXPRESSION - STEP 1: Does the patient require help expressing complex and abstract ideas (such as current events, finances , discharge planning, medical issues, relationships, etc)? No. EXPRESSION - STEP 2: Does the patient need extra time, require an assistive device (such as augmentive communication syste m or a communication board), OR does s/he have mild difficulty expressing complex and abstract ideas (including mild dysarthria or mild word-find problems)? Yes. EXPRESSION - SCORE: 6-LUIS ARMANDO SOCIAL INTERACTION: SOCIAL INTERACTION - STEP 1: Does the patient require a helper to interact with others in social and therapeutic situations? No. SOCIAL INTERACTION - STEP 2: Does the patient need extra time in social situations, OR does s/he interact with staff, other patien ts, and family members ONLY in structured environments, OR does s/he require medication for social in teraction? Yes, patient needs extra time SOCIAL INTERACTION - SCORE: 6-LUIS ARMANDO PROBLEM SOLVING: PROBLEM SOLVING - STEP 1: Does the patient need help to solve complex problems such as managing a checking account or confronti ng interpersonal problems? No. PROBLEM SOLVING - STEP 2: Does the patient require extra time to make decisions or solve problems, OR does s/he have slight dif ficulty reading, initiating, or self-correcting in unfamiliar situations? Yes, patient needs extra ti me. PROBLEM SOLVING - SCORE: 6-LUIS ARMANDO MEMORY: MEMORY - STEP 1: Does the patient need help to remember frequently encountered people, daily routines, and executing r equests? No. MEMORY - STEP 2: Does the patient have slight difficulty recognizing frequently encountered people, daily routines, or executing requests without the need for repetition or using self-initiated or environmental cues to remember? Yes. MEMORY - SCORE: 6-LUIS ARMANDO SIGNATURE PANEL: The following modified sections: Eating - Score, Grooming - Score, Bathing - Score, Dressing - Upper Body - Score, Dressing - Lower Body - Score, Toileting - Score, Bladder Management - Score, Bowel Man agement - Score, Transfers: Bed, Chair, Wheelchair - Score, Transfers: Toilet - Score, Transfers: Yuli wer - Score, Transfers: Tub - Score, Locomotion: Walk - Score, Locomotion: Wheelchair - Score, Compre hension - Score, Expression - Score, Social Interaction - Score, Problem Solving - Score, Memory - Sc ore were [electronically] signed by Jose GuzmanNGauri on SatDec 19 2017 14:51:59 T-0500 (Centra l Daylight Time)
[2017-12-19] MEDS: clonazePAM 1 MG TAB PO PRN (15:27)
--- NOTE | 2017-12-19 18:32 | R.PN ---
ENCOUNTER DATE AND TIME: 12/19/2017 18:29 (CDT) NAME ELIJAH ORTEGA DATE OF : 1950 DATE OF ADMISSION: 12/13/2017 18:47 (CDT) colitishypertensionchronic AfibCHF systolicCOPDAnxietyCHIEF COMPLAINT: Debility SUBJECTIVE: Pt denied any Shortness of Breath. Pt denied any depression. Ambulated 180' with rolling walker with standby assistance. Eating mechanical soft diet with chopped meats and requiring supervision. Chest x-ray shows 4 broken ribs on the left side. Will add pain patch to left chest. Increase gabape ntin to 600 mg twice daily. Her pain is better managed today. VITAL SIGNS Temperature: 97.8F SBP/DBP: 148/68 Pulse: 70 Resp: 16 MEDICATION ALLERGIES: amitriptyline HCI Ciprofloxacin Phenobarbital ENVIRONMENTAL ALLERGIES: - Substance Allergies None Known - Other Allergies None Known NURSING: - Shower allowing shower ACTIVITIES OOB only with supervision THERAPIES: - Occupational Therapy Evaluate and Treat. - Physical Therapy Evaluate and Treat. PHYSICAL EXAM - Gen Alert and awake Lying in bed No apparent distress Oriented to: person, time, and place - Skin No skin breakdown. Normacephalic - Eyes No abnormalities - ENMT No abnormalities - Neck No abnormalities - CVS RRR - Chest Clear - Abd Soft - GI Non distended Deferred - No abnormalities - Ext No significant edema - MSK 4/5 weakness in both lower extremities. - Neuro No focal deficits - Psych No abnormalities ASSESSMENT: Pt. is a 67 yo Right-handed white female.On 12/10/2017 [address] [facility] with diagnosis colitis.Her impairment category is Medically Complex Conditions 17 - Other Med ically Complex Conditions (17.9).Pre-morbidly, Pt. was independent/mod-I in Sphincter Control, Commun ication, Social Cognition, Self-Care, and Locomotion; and she had good Sphincter Control.Currently, s he has deficits of Endurance, Safety Awareness, Transfers Control, Communication, Social Cognition, B alance, Locomotion, and Self-Care.Pt. is now referred to [facility] for acute in-patient rehabilitation in order to maximize patient's functional independence in activities of ruddy ly living, strength, ROM, and mobility.- Rehab Goal Patient has realistic goal of being discharged at assistance level 6-Zainab to reside at Home with Fam genevieve/Relatives. MDM/PLAN: - Physical Therapy Gait dysfunction - to improve, our physical therapists will perform initial evaluation of pt's statu s upon admission and devise an individualized program for Gait Training, and Wheel Chair mobility Inability to transfer - to improve, our physical therapists will perform initial evaluation of pt's status upon admission and devise an individualized program for Bed mobility Need for home safety evaluation - to improve, our physical therapists will perform initial evaluatio n of pt's status upon admission and devise an individualized program for Home Evaluation Need in caregiver upon discharge - to improve, our physical therapists will perform initial evaluati on of pt's status upon admission and devise an individualized program for Caregiver Training Edema - to improve, our physical therapists will perform initial evaluation of pt's status upon admi ssion and devise an individualized program for Elevation Training, and Lymphedema Therapy New precaution - to improve, our physical therapists will perform initial evaluation of pt's status upon admission and devise an individualized program for Patient precaution education Poor balance - to improve, our physical therapists will perform initial evaluation of pt's status up on admission and devise an individualized program for Balance Training Poor endurance - to improve, our physical therapists will perform initial evaluation of pt's status upon admission and devise an individualized program for Endurance Training Weakness - to improve, our physical therapists will perform initial evaluation of pt's status upon a dmission and devise an individualized program for Aquatic Therapy, Neuromuscular Reeducation, and Str engthening Achieving independence - to improve, our physical therapists will perform initial evaluation of pt's status upon admission and devise an individualized program for Community Reintegration Activities - Occupational Therapy ADL deficits - to improve, our occupation therapists will perform initial evaluation of pt's status upon admission and devise an individualized program for Bathing, Bed mobility, Community Reintegratio n, Cooking, Dressing, Eating, Fine Motor Skills, Grooming, Homemaking, Kitchen Mobility, Laundry, Pat ient Education, Safety Awareness, Splinting - Positioning, Transfers(Toilet, Tub, Shower), and Wheel Chair Management Cognitive deficits - to improve, our occupation therapists will perform initial evaluation of pt's s tatus upon admission and devise an individualized program for Cognition - orientation Need for healthcare customer service - to improve, our occupation therapists will perform initial evaluation of pt's status upon admission and devise an individualized program for Caregiver Training Weakness - to improve, our occupation therapists will perform initial evaluation of pt's status upon admission and devise an individualized program for Aquatic Therapy, Balance, Endurance, UE ROM, and UE strengthening - Diet Type Continue Regular - Diet - Liquid Texture Continue Regular - Tube Feed Continue N/A - Diet - Solid Texture Continue Regular - Shower allowing shower FUNCTIONAL STATUS: UPDATED AT WEEKLY TEAM CONFERENCE - Bladder Same Bladder control device used: diaper Same accident frequency: 7-Ind - No accidents in the past 7 days - Bowel Same Bowel control device used: diaper Same accident frequency: 7-Ind - No accidents in the past 7 days - Walking Same score based on distance walked: 0(N/A) - Wheelchair Same score based on distance traveled: 0(N/A) FUNCTIONAL STATUS: - Self-Care A. Eating Ind B. Grooming Ind C. Bathing maxA D. Dressing - Upper sup E. Dressing - Lower maxA F. Toileting Dep - Sphincter Control G: Bladder control Dep H: Bowel control Dep - Transfers Control I. Bed/Chair/Wheelchair modA J. Toilet modA K. Tub/Shower modA - Locomotion L. Walk/Wheelchair (B) maxA M. Stairs ADNO - Communication N. Comprehension (B) sup O. Expression (B) sup - Social Cognition P. Social Interaction sup Q. Problem Solving sup R. Memory sup - Endurance Poor - Balance Fair - Safety Awareness Poor CURRENT FUNC. DEFICITS: Endurance, Safety Awareness, Transfers Control, Communication, Social Cognition, Balance, Locomotion, and Self-Care SIGNATURE PANEL: (CDT)
[2017-12-20] MEDS: Oxycodone HCl/Acetaminophen 1 TAB TAB PO PRN ×6 (00:34→21:48)
--- NOTE | 2017-12-20 01:59 | FAST ---
SHIFT START DATE/TIME: 12/19/2017 19:00 (CDT) SHIFT END DATE/TIME: 12/20/2017 07:00 (CDT) NAME ELIJAH ORTEGA DATE OF : 1950 DATE OF ADMISSION: 12/13/2017 18:47 (CDT) PHONE: AGE: 67 N# [id number] GENDER: Female ENCOUNTER PHYSICIAN: Dr. Pancho De Santiago M.D. ADMISSION DIAGNOSIS: - Medically Complex Conditions 17 - Other Medically Complex Conditions (17.9) colitis. hypertension. chronic Afib. CHF systolic. COPD. Anxiety. EATING: Activity did not occur on this shift EATING - SCORE: 0-UNK GROOMING: Wash, rinse, and dry hands GROOMING - STEP 1: Does the patient require assistance when grooming? Yes. GROOMING - STEP 2: Does the patient require the assistance of a helper? Yes. GROOMING - STEP 3: How much assistance does the patient require from the helper? Cuing, coaxing, instructions, or encour agement for completion of grooming GROOMING - SCORE: 5-SUP BATHING: Activity did not occur on this shift BATHING - SCORE: 0-UNK DRESSING - UPPER BODY: Patient is not dressing in public clothing ARTICLES SCORE Total number of steps: 0 DRESSING - UPPER BODY - SCORE: 0-UNK DRESSING - LOWER BODY: Patient is not dressing in public clothing ARTICLES SCORE Total number of steps: 0 DRESSING - LOWER BODY - SCORE: 0-UNK TOILETING: TOILETING - STEP 1: Does the patient require assistance with toileting? Yes. TOILETING - STEP 2: Does the patient require the assistance of a helper? Yes. TOILETING - STEP 3: How much assistance does the patient require from the helper? Hands-on assistance from the helper TOILETING - STEP 4: Of the 3 tasks: 1) Adjusting clothing prior to use, 2) Cleansing of perineal area, 3) Adjusting clot brooks after use; How many tasks does the patient perform WITHOUT assistance of the helper? Two tasks TOILETING - SCORE: 3-MOD BLADDER MANAGEMENT: BLADDER MANAGEMENT - STEP 1: Does the patient control the bladder completely and intentionally without equipment or devices or med ications, and is always continent? No. BLADDER MANAGEMENT - STEP 2: Does the patient require the assistance of a helper? Yes. BLADDER MANAGEMENT - STEP 3: How much assistance does the patient require from the helper? Patient requires contact assistance fro m the helper BLADDER MANAGEMENT - STEP 4: How much contact assistance does the patient require from the helper? Patient requires minimal assist ance to maintain an external device - by positioning, and the patient performs 75% or more of bladder management tasks, while the helper provides less than 25% of the assistance to position patient on / off bedpan BLADDER MANAGEMENT - SCORE: 4-MIN BOWEL MANAGEMENT: Activity did not occur on this shift BOWEL MANAGEMENT - SCORE: 7-IND TRANSFERS: BED, CHAIR, WHEELCHAIR: TRANSFERS: BED, CHAIR, WHEELCHAIR - STEP 1: Does the patient require assistance with bed, chair, or wheelchair transfers? Yes. TRANSFERS: BED, CHAIR, WHEELCHAIR - STEP 2: Does the patient require the assistance of a helper? Yes. TRANSFERS: BED, CHAIR, WHEELCHAIR - STEP 3: How much assistance does the patient require from the helper? Lifting of the patient TRANSFERS: BED, CHAIR, WHEELCHAIR - STEP 4: Does the helper lift the patient ONLY up? ONLY down? Up AND Down? ONLY up. TRANSFERS: BED, CHAIR, WHEELCHAIR - SCORE: 3-MOD TRANSFERS: TOILET: TRANSFERS: TOILET - STEP 1: Does the patient require assistance with toilet transfers? Yes. TRANSFERS: TOILET - STEP 2: Does the patient require the assistance of a helper? Yes. TRANSFERS: TOILET - STEP 3: How much assistance does the patient require from the helper? Patient performs half or more of the tr ansferring tasks TRANSFERS: TOILET - STEP 4: Does the patient need only incidental help such as contact guard or steadying during toilet transfer? No. Patient needs more than incidental help TRANSFERS: TOILET - SCORE: 3-MOD TRANSFERS: SHOWER: Activity did not occur on this shift TRANSFERS: SHOWER - SCORE: 0-UNK TRANSFERS: TUB: Activity did not occur on this shift TRANSFERS: TUB - SCORE: 0-UNK LOCOMOTION: WALK: Activity did not occur on this shift LOCOMOTION: WALK - SCORE: 0-UNK LOCOMOTION: WHEELCHAIR: Activity did not occur on this shift LOCOMOTION: WHEELCHAIR - SCORE: 0-UNK COMPREHENSION: COMPREHENSION: TYPE: Both COMPREHENSION - STEP 1: Does the patient require help to understand complex and abstract ideas (such as current events, finan sebastian, discharge planning, medical issues, relationships, etc)? No. COMPREHENSION - STEP 2: Does the patient need extra time, require an assistive device (such as glasses for visual comprehensi on or a hearing aid for auditory comprehension) or does s/he have mild difficulty understanding compl ex and abstract information? Yes. COMPREHENSION - SCORE: 6-LUIS ARMANDO EXPRESSION EXPRESSION: TYPE: Both EXPRESSION - STEP 1: Does the patient require help expressing complex and abstract ideas (such as current events, finances , discharge planning, medical issues, relationships, etc)? No. EXPRESSION - STEP 2: Does the patient need extra time, require an assistive device (such as augmentive communication syste m or a communication board), OR does s/he have mild difficulty expressing complex and abstract ideas (including mild dysarthria or mild word-find problems)? Yes. EXPRESSION - SCORE: 6-LUIS ARMANDO SOCIAL INTERACTION: SOCIAL INTERACTION - STEP 1: Does the patient require a helper to interact with others in social and therapeutic situations? No. SOCIAL INTERACTION - STEP 2: Does the patient need extra time in social situations, OR does s/he interact with staff, other patien ts, and family members ONLY in structured environments, OR does s/he require medication for social in teraction? Yes, patient requires medication for social interaction SOCIAL INTERACTION - SCORE: 6-LUIS ARMANDO PROBLEM SOLVING: PROBLEM SOLVING - STEP 1: Does the patient need help to solve complex problems such as managing a checking account or confronti ng interpersonal problems? No. PROBLEM SOLVING - STEP 2: Does the patient require extra time to make decisions or solve problems, OR does s/he have slight dif ficulty reading, initiating, or self-correcting in unfamiliar situations? Yes, patient needs extra ti me. PROBLEM SOLVING - SCORE: 6-LUIS ARMANDO MEMORY: MEMORY - STEP 1: Does the patient need help to remember frequently encountered people, daily routines, and executing r equests? No. MEMORY - STEP 2: Does the patient have slight difficulty recognizing frequently encountered people, daily routines, or executing requests without the need for repetition or using self-initiated or environmental cues to remember? Yes. MEMORY - SCORE: 6-LUIS ARMANDO SIGNATURE PANEL: The following modified sections: Eating - Score, Grooming - Score, Dressing - Upper Body - Score, Jose ssing - Lower Body - Score, Toileting - Score, Bladder Management - Score, Bowel Management - Score, Transfers: Bed, Chair, Wheelchair - Score, Transfers: Toilet - Score, Transfers: Shower - Score, Kramer sfers: Tub - Score, Locomotion: Walk - Score, Locomotion: Wheelchair - Score, Comprehension - Score, Expression - Score, Social Interaction - Score, Problem Solving - Score, Memory - Score were [electro nically] signed by Sandra Don CNA on SatDec 20 2017 01:59:00 GMT-0500 (Central Daylight Time)
[2017-12-20] MEDS: clonazePAM 1 MG TAB PO PRN ×2 (02:33→14:28)
[2017-12-20] MEDS: FUROSEMIDE 40 MG TABLET PO SCH (04:54)
[2017-12-20] MEDS: PANTOPRAZOLE 40MG TABLET PO SCH (07:00)
[2017-12-20] MEDS: ARFORMOTEROL TARTRATE 15 MCG/2 ML VIAL.NEB NEB SCH ×2 (07:40→20:00)
[2017-12-20] MEDS: CIPROFLOXACIN 0.3% ML OPHTH OPTH SCH ×2 (08:00→20:33)
[2017-12-20] MEDS: APIXABAN 2.5 MG TABLET PO SCH ×2 (08:48→20:32)
[2017-12-20] MEDS: LISINOPRIL 20 MG TAB PO SCH (08:48)
[2017-12-20] MEDS: CRANBERRY FRUIT EXTRACT 200 MG CAP PO SCH ×2 (08:48→20:32)
[2017-12-20] MEDS: ASPIRIN EC 81 MG TAB PO SCH (08:48)
[2017-12-20] MEDS: SERTRALINE HCL 50 MG TAB PO SCH (08:49)
[2017-12-20] MEDS: GABAPENTIN 300 MG CAP PO SCH ×2 (08:49→20:33)
[2017-12-20] MEDS: predniSONE 20 MG TAB PO SCH (08:50)
[2017-12-20] MEDS: AMLODIPINE 5 MG TAB PO SCH (08:51)
[2017-12-20] MEDS: LIDOCAINE 5% PATCH TOP SCH (09:22)
[2017-12-20] MEDS: PROMOD 30 ML DOSE PO SCH ×2 (09:23→20:33)
[2017-12-20] MEDS: ALBUTEROL INHALER 60 PUFF/8 GM IH SCH ×4 (09:23→21:00)
--- NOTE | 2017-12-20 10:16 | P.RH.PN ---
Estimated Length of Stay: 12 Expected Discharge Date: 12/24/17 Discharge Disposition Plan: Home Family Support: Yes Half-Way Goal: Mobility, Transfers, Self Care Vital Signs: Last Vital Signs Temp 96.4 F L 12/20/17 07:15 Pulse 66 12/20/17 08:51 Resp 18 12/20/17 07:15 BP 119/65 12/20/17 08:51 Pulse Ox 93 12/20/17 07:15 Laboratory: Laboratory Last Values WBC 11.3 K/uL (4.3-10.9) H D 12/19/17 06:05 RBC 4.00 M/uL (3.86-4.86) 12/19/17 06:05 Hgb 11.4 g/dL (12.0-15.0) L 12/19/17 06:05 Hct 35.0 % (36.0-45.0) L 12/19/17 06:05 MCV 87.3 fL (80-100) 12/19/17 06:05 MCH 28.6 pg (27.0-35.0) 12/19/17 06:05 MCHC 32.7 g/dL (32.0-36.0) 12/19/17 06:05 RDW 13.9 % (12.1-15.2) 12/19/17 06:05 Plt Count 350 K/uL (152-406) 12/19/17 06:05 MPV 7.4 fL (7.6-11.3) L 12/19/17 06:05 Neutrophils % 74.3 % (41.7-73.7) H 12/19/17 06:05 Lymphocytes % 17.6 % (15.3-44.8) 12/19/17 06:05 Monocytes % 7.7 % (3.3-12.3) 12/19/17 06:05 Eosinophils % 0.2 % (0-4.4) 12/19/17 06:05 Basophils % 0.2 % (0-1.3) 12/19/17 06:05 Absolute Neutrophils 8.4 K/uL (1.8-8.0) H 12/19/17 06:05 Absolute Lymphocytes 2.0 K/uL (0.7-4.9) 12/19/17 06:05 Absolute Monocytes 0.9 K/uL (0.1-1.3) 12/19/17 06:05 Absolute Eosinophils 0.0 K/uL (0-0.5) 12/19/17 06:05 Absolute Basophils 0.0 K/uL (0-0.5) 12/19/17 06:05 Sodium 140 mmol/L (136-145) 12/19/17 06:05 Potassium 4.6 mmol/L (3.5-5.1) 12/19/17 06:05 Chloride 101 mmol/L (98-107) 12/19/17 06:05 Carbon Dioxide 36 mmol/L (21-32) H 12/19/17 06:05 BUN 15 mg/dL (7-18) 12/19/17 06:05 Creatinine 0.70 mg/dL (0.55-1.3) 12/19/17 06:05 Estimated GFR 83 mL/min (=/>90) L 12/19/17 06:05 Glucose 109 mg/dL (74-106) H 12/19/17 06:05 Calcium 8.9 mg/dL (8.5-10.1) 12/19/17 06:05 Magnesium 2.1 mg/dL (1.8-2.4) 12/14/17 06:00 Albumin 2.8 g/dL (3.4-5.0) L 12/19/17 06:05 Prealbumin 22.7 mg/dL (20-40) 12/19/17 06:05 Urine Color Yellow 12/15/17 05:24 Urine Appearance Cloudy 12/15/17 05:24 Urine pH 5.0 (5.0-7.0) 12/15/17 05:24 Ur Specific [place] 1.015 (1.005-1.030) 12/15/17 05:24 Urine Ketones Negative (NEG) 12/15/17 05:24 Urine Blood Negative (NEG) 12/15/17 05:24 Urine Nitrite Positive (NEG) H 12/15/17 05:24 Urine Bilirubin Negative (NEG) 12/15/17 05:24 Urine Urobilinogen 0.2 mg/dL (0.2-1.0) 12/15/17 05:24 Ur Leukocyte Esterase 3+ (NEG) H 12/15/17 05:24 Urine RBC None seen /HPF (NONE SEEN) 12/15/17 05:24 Urine WBC 20-50 /HPF (<5) H 12/15/17 05:24 Ur Squamous Epith Cells 5-10 /HPF (NONE SEEN) H 12/15/17 05:24 Urine Bacteria >50 /HPF (<20) H 12/15/17 05:24 Urine Culture Reflexed Not needed 12/15/17 05:24 Urine Glucose Negative (NEG) 12/15/17 05:24 Urine Total Protein Negative (NEG) 12/15/17 05:24 Weight: 379 lb 3 oz Wound Present: No Closed Surgical Incision Present: No Negative Pressure Wound Therapy Present: No Physician Update: She has four broken ribs on the left which is fairly well managed with lidoderm patch and gabapentin. She is making fair progress overally. She is at minimum to moderate assitance with physical and occupational therapy. She is on soft chopped meats with mechanical soft diet due to no dentures and poor eating habits. Medical Issues: C. Diff (+), for repeat test Pain Issues: Lidoderm 2 patches Daily. Percocet 5/325mg Q4H PRN Comment: multiple abrasions and bruises on extremities Functional Improvement: Patient is progressing as expected w/ therapy goals. Patient requires VC for motivation w/ therapy. Functional Improvement Occupational Therapy: GOOD PROGRESS REQUIRING MIN ASSIST TO SBA FOR SET UP OF ITEMS. Speech Therapy Update: Swallow WFL. Patient is tolerating mechanical soft chopped diet with regular liquids well; no s/s of aspiration. She is following swallow precautions independenty now: seating @ 90 degrees, small bites and sips and slow rate for intake. Summary: Patient's care plan and care home goals have been reviewed and revised as necessary. Please see the Rehabilitation Signature page for all necessary signatures.
[2017-12-20] MEDS: METOPROLOL TAR 50 MG TAB PO SCH (11:17)
--- NOTE | 2017-12-20 11:28 | FAST ---
ENCOUNTER DATE AND TIME: 12/20/2017 08:00 (CDT) NAME ELIJAH ORETGA DATE OF : 1950 DATE OF ADMISSION: 12/13/2017 18:47 (CDT) PHONE: AGE: 67 SSN# [id number] GENDER: Female ENCOUNTER PHYSICIAN: Dr. Pancho De Santiago M.D. ADMISSION DIAGNOSIS: - Medically Complex Conditions 17 - Other Medically Complex Conditions (17.9) colitis. hypertension. chronic Afib. CHF systolic. COPD. Anxiety. EATING: Activity did not occur on this shift EATING - SCORE: 0-UNK GROOMING: Wash, rinse, and dry face Wash, rinse, and dry hands GROOMING - STEP 1: Does the patient require assistance when grooming? No. GROOMING - SCORE: 7-IND BATHING: Abdomen Buttocks Chest Left arm Left lower leg and foot Left upper leg Perineal area Right arm Right lower leg and foot Right upper leg BATHING - STEP 1: Does the patient require assistance when bathing? Yes. BATHING - STEP 2: Does the patient require the assistance of a helper? Yes. BATHING - STEP 3: How much assistance does the patient require from the helper? Only supervision, cuing, coaxing, instr uctions, encouragement BATHING - SCORE: 5-SUP DRESSING - UPPER BODY: Bra (three steps) T-shirt/pullover shirt (four steps) ARTICLES SCORE Total number of steps: 7 DRESSING - UPPER BODY - STEP 1: Does the patient require help when dressing above the waist? Yes. DRESSING - UPPER BODY - STEP 2: Does the patient require the assistance of a helper? Yes. DRESSING - UPPER BODY - STEP 3: Does the helper touch the patient while dressing? Yes. DRESSING - UPPER BODY - STEP 4: How many of the total steps does the patient complete on his/her own? 6 DRESSING - UPPER BODY - SCORE: 4-MIN DRESSING - LOWER BODY: Sock - Left foot (one step) Sock - Right foot (one step) ARTICLES SCORE Total number of steps: 2 DRESSING - LOWER BODY - STEP 1: Does the patient require help when dressing below the waist? Yes. DRESSING - LOWER BODY - STEP 2: Does the patient require the assistance of a helper? Yes. DRESSING - LOWER BODY - STEP 3: Does the helper touch the patient while dressing? Yes. DRESSING - LOWER BODY - STEP 4: How many of the total steps does the patient complete on his/her own? 0 DRESSING - LOWER BODY - STEP 5: Does patient require total assistance for dressing below the waist such as the helper holding clothin g and performing basically all the activities? No. DRESSING - LOWER BODY - SCORE: 2-MAX TOILETING: TOILETING - STEP 1: Does the patient require assistance with toileting? Yes. TOILETING - STEP 2: Does the patient require the assistance of a helper? Yes. TOILETING - STEP 3: How much assistance does the patient require from the helper? Hands-on assistance from the helper TOILETING - STEP 4: Of the 3 tasks: 1) Adjusting clothing prior to use, 2) Cleansing of perineal area, 3) Adjusting clot brooks after use; How many tasks does the patient perform WITHOUT assistance of the helper? Two tasks TOILETING - SCORE: 3-MOD BLADDER MANAGEMENT: Activity did not occur on this shift BLADDER MANAGEMENT - SCORE: 7-IND BOWEL MANAGEMENT: Activity did not occur on this shift BOWEL MANAGEMENT - SCORE: 7-IND TRANSFERS: BED, CHAIR, WHEELCHAIR: TRANSFERS: BED, CHAIR, WHEELCHAIR - STEP 1: Does the patient require assistance with bed, chair, or wheelchair transfers? Yes. TRANSFERS: BED, CHAIR, WHEELCHAIR - STEP 2: Does the patient require the assistance of a helper? Yes. TRANSFERS: BED, CHAIR, WHEELCHAIR - STEP 3: How much assistance does the patient require from the helper? Lifting of the legs TRANSFERS: BED, CHAIR, WHEELCHAIR - STEP 4: How many legs does the patient require the helper to lift? both legs TRANSFERS: BED, CHAIR, WHEELCHAIR - SCORE: 3-MOD TRANSFERS: TOILET: TRANSFERS: TOILET - STEP 1: Does the patient require assistance with toilet transfers? Yes. TRANSFERS: TOILET - STEP 2: Does the patient require the assistance of a helper? Yes. TRANSFERS: TOILET - STEP 3: How much assistance does the patient require from the helper? Patient performs half or more of the tr ansferring tasks TRANSFERS: TOILET - STEP 4: Does the patient need only incidental help such as contact guard or steadying during toilet transfer? Yes. TRANSFERS: TOILET - SCORE: 4-MIN TRANSFERS: SHOWER: TRANSFERS: SHOWER - STEP 1: Does the patient require assistance with shower transfers? Yes. TRANSFERS: SHOWER - STEP 2: Does the patient require the assistance of a helper? Yes. TRANSFERS: SHOWER - STEP 3: How much assistance does the patient require from the helper? Only incidental help such as contact gu arding or steadying during shower transfers, or help to lift one leg into the shower TRANSFERS: SHOWER - SCORE: 4-MIN TRANSFERS: TUB: Activity did not occur on this shift TRANSFERS: TUB - SCORE: 0-UNK LOCOMOTION: WALK: Activity did not occur on this shift LOCOMOTION: WALK - SCORE: 0-UNK LOCOMOTION: WHEELCHAIR: Activity did not occur on this shift LOCOMOTION: WHEELCHAIR - SCORE: 0-UNK LOCOMOTION: STAIRS: Activity did not occur on this shift LOCOMOTION: STAIRS - SCORE: 0-UNK COMPREHENSION: COMPREHENSION - SCORE: 0-UNK EXPRESSION EXPRESSION: TYPE: Non-Vocal EXPRESSION - STEP 1: Does the patient require help expressing complex and abstract ideas (such as current events, finances , discharge planning, medical issues, relationships, etc)? No. EXPRESSION - STEP 2: Does the patient need extra time, require an assistive device (such as augmentive communication syste m or a communication board), OR does s/he have mild difficulty expressing complex and abstract ideas (including mild dysarthria or mild word-find problems)? No. EXPRESSION - SCORE: 7-IND SOCIAL INTERACTION: SOCIAL INTERACTION - STEP 1: Does the patient require a helper to interact with others in social and therapeutic situations? No. SOCIAL INTERACTION - STEP 2: Does the patient need extra time in social situations, OR does s/he interact with staff, other patien ts, and family members ONLY in structured environments, OR does s/he require medication for social in teraction? No. SOCIAL INTERACTION - SCORE: 7-IND PROBLEM SOLVING: PROBLEM SOLVING - STEP 1: Does the patient need help to solve complex problems such as managing a checking account or confronti ng interpersonal problems? No. PROBLEM SOLVING - STEP 2: Does the patient require extra time to make decisions or solve problems, OR does s/he have slight dif ficulty reading, initiating, or self-correcting in unfamiliar situations? No. PROBLEM SOLVING - SCORE: 7-IND MEMORY: MEMORY - STEP 1: Does the patient need help to remember frequently encountered people, daily routines, and executing r equests? No. MEMORY - STEP 2: Does the patient have slight difficulty recognizing frequently encountered people, daily routines, or executing requests without the need for repetition or using self-initiated or environmental cues to remember? No. MEMORY - SCORE: 7-IND SIGNATURE PANEL: The following modified sections: Eating - Score, Grooming - Score, Bathing - Score, Dressing - Upper Body - Score, Dressing - Lower Body - Score, Toileting - Score, Transfers: Bed, Chair, Wheelchair - S core, Transfers: Toilet - Score, Transfers: Shower - Score, Transfers: Tub - Score, Comprehension - S core, Expression - Score, Social Interaction - Score, Problem Solving - Score, Memory - Score were [e lectronically] signed by RIDGE Granado on SatDec 20 2017 11:26:57 T-0500 (Formerly [facility], later [facility])
--- NOTE | 2017-12-20 15:05 | FAST ---
ENCOUNTER DATE AND TIME: 12/20/2017 08:00 (CDT) NAME ELIJAH ORTEGA DATE OF : 1950 DATE OF ADMISSION: 12/13/2017 18:47 (CDT) PHONE: AGE: 67 SSN# [id number] GENDER: Female ENCOUNTER PHYSICIAN: Dr. Pancho De Santiago M.D. ADMISSION DIAGNOSIS: - Medically Complex Conditions 17 - Other Medically Complex Conditions (17.9) colitis. hypertension. chronic Afib. CHF systolic. COPD. Anxiety. EATING: Activity did not occur on this shift EATING - SCORE: 0-UNK GROOMING: Activity did not occur on this shift GROOMING - SCORE: 0-UNK BATHING: Activity did not occur on this shift BATHING - SCORE: 0-UNK DRESSING - UPPER BODY: Activity did not occur on this shift Patient is not dressing in public clothing ARTICLES SCORE Total number of steps: 0 DRESSING - UPPER BODY - SCORE: 0-UNK DRESSING - LOWER BODY: Activity did not occur on this shift Patient is not dressing in public clothing ARTICLES SCORE Total number of steps: 0 DRESSING - LOWER BODY - SCORE: 0-UNK TOILETING: Activity did not occur on this shift TOILETING - SCORE: 0-UNK BLADDER MANAGEMENT: Activity did not occur on this shift BLADDER MANAGEMENT - SCORE: 7-IND BOWEL MANAGEMENT: Activity did not occur on this shift BOWEL MANAGEMENT - SCORE: 7-IND TRANSFERS: BED, CHAIR, WHEELCHAIR: TRANSFERS: BED, CHAIR, WHEELCHAIR - STEP 1: Does the patient require assistance with bed, chair, or wheelchair transfers? Yes. TRANSFERS: BED, CHAIR, WHEELCHAIR - STEP 2: Does the patient require the assistance of a helper? Yes. TRANSFERS: BED, CHAIR, WHEELCHAIR - STEP 3: How much assistance does the patient require from the helper? Lifting of the legs TRANSFERS: BED, CHAIR, WHEELCHAIR - STEP 4: How many legs does the patient require the helper to lift? both legs TRANSFERS: BED, CHAIR, WHEELCHAIR - SCORE: 3-MOD TRANSFERS: TOILET: TRANSFERS: TOILET - STEP 1: Does the patient require assistance with toilet transfers? Yes. TRANSFERS: TOILET - STEP 2: Does the patient require the assistance of a helper? Yes. TRANSFERS: TOILET - STEP 3: How much assistance does the patient require from the helper? Only supervision, cuing, coaxing, OR he lp to set out transfer equipment or to lock brakes and/or lift foot rests TRANSFERS: TOILET - SCORE: 5-SUP TRANSFERS: SHOWER: Activity did not occur on this shift TRANSFERS: SHOWER - SCORE: 0-UNK TRANSFERS: TUB: Activity did not occur on this shift TRANSFERS: TUB - SCORE: 0-UNK LOCOMOTION: WALK: LOCOMOTION: WALK - STEP 1: Does the patient need help to walk 150 feet? Yes. LOCOMOTION: WALK - STEP 2: How much assistance does the patient require to walk a minimum of 150 feet? Only supervision, cuing, or coaxing LOCOMOTION: WALK - SCORE: 5-SUP LOCOMOTION: WHEELCHAIR: Activity did not occur on this shift LOCOMOTION: WHEELCHAIR - SCORE: 0-UNK LOCOMOTION: STAIRS: Activity did not occur on this shift LOCOMOTION: STAIRS - SCORE: 0-UNK COMPREHENSION: COMPREHENSION - SCORE: 0-UNK EXPRESSION EXPRESSION - SCORE: 0-UNK SOCIAL INTERACTION: SOCIAL INTERACTION - SCORE: 0-UNK PROBLEM SOLVING: PROBLEM SOLVING - SCORE: 0-UNK MEMORY: MEMORY - SCORE: 0-UNK SIGNATURE PANEL: The following modified sections: Transfers: Bed, Chair, Wheelchair - Score, Transfers: Toilet - Score , Locomotion: Walk - Score, Locomotion: Wheelchair - Score, Locomotion: Stairs - Score were [chung salcedo] signed by Ruth Morris PTA on SatDec 20 2017 15:04:09 GMT-0500 (Central Daylight Time)
[2017-12-20] MEDS: PROMETHAZINE 25 MG TABLET PO PRN (20:32)
[2017-12-21] MEDS: Oxycodone HCl/Acetaminophen 1 TAB TAB PO PRN ×5 (02:09→20:13)
--- NOTE | 2017-12-21 02:12 | FAST ---
SHIFT START DATE/TIME: 12/20/2017 19:00 (CDT) SHIFT END DATE/TIME: 12/21/2017 07:00 (CDT) NAME ELIJAH ORTEGA DATE OF : 1950 DATE OF ADMISSION: 12/13/2017 18:47 (CDT) PHONE: AGE: 67 N# [id number] GENDER: Female ENCOUNTER PHYSICIAN: Dr. Pancho eD Santiago M.D. ADMISSION DIAGNOSIS: - Medically Complex Conditions 17 - Other Medically Complex Conditions (17.9) colitis. hypertension. chronic Afib. CHF systolic. COPD. Anxiety. EATING: Activity did not occur on this shift EATING - SCORE: 0-UNK GROOMING: Wash, rinse, and dry face Wash, rinse, and dry hands GROOMING - STEP 1: Does the patient require assistance when grooming? Yes. GROOMING - STEP 2: Does the patient require the assistance of a helper? Yes. GROOMING - STEP 3: How much assistance does the patient require from the helper? Only prior equipment preparation/set up from the helper GROOMING - SCORE: 5-SUP BATHING: Activity did not occur on this shift BATHING - SCORE: 0-UNK DRESSING - UPPER BODY: Patient is not dressing in public clothing ARTICLES SCORE Total number of steps: 0 DRESSING - UPPER BODY - SCORE: 0-UNK DRESSING - LOWER BODY: Patient is not dressing in public clothing ARTICLES SCORE Total number of steps: 0 DRESSING - LOWER BODY - SCORE: 0-UNK TOILETING: TOILETING - STEP 1: Does the patient require assistance with toileting? Yes. TOILETING - STEP 2: Does the patient require the assistance of a helper? Yes. TOILETING - STEP 3: How much assistance does the patient require from the helper? Hands-on assistance from the helper TOILETING - STEP 4: Of the 3 tasks: 1) Adjusting clothing prior to use, 2) Cleansing of perineal area, 3) Adjusting clot brooks after use; How many tasks does the patient perform WITHOUT assistance of the helper? Two tasks TOILETING - SCORE: 3-MOD BLADDER MANAGEMENT: BLADDER MANAGEMENT - STEP 1: Does the patient control the bladder completely and intentionally without equipment or devices or med ications, and is always continent? No. BLADDER MANAGEMENT - STEP 2: Does the patient require the assistance of a helper? Yes. BLADDER MANAGEMENT - STEP 3: How much assistance does the patient require from the helper? Patient requires contact assistance fro m the helper BLADDER MANAGEMENT - STEP 4: How much contact assistance does the patient require from the helper? Patient requires minimal assist ance to maintain an external device - by positioning, and the patient performs 75% or more of bladder management tasks, while the helper provides less than 25% of the assistance to position patient on / off bedpan BLADDER MANAGEMENT - SCORE: 4-MIN BOWEL MANAGEMENT: Activity did not occur on this shift BOWEL MANAGEMENT - SCORE: 7-IND TRANSFERS: BED, CHAIR, WHEELCHAIR: TRANSFERS: BED, CHAIR, WHEELCHAIR - STEP 1: Does the patient require assistance with bed, chair, or wheelchair transfers? Yes. TRANSFERS: BED, CHAIR, WHEELCHAIR - STEP 2: Does the patient require the assistance of a helper? Yes. TRANSFERS: BED, CHAIR, WHEELCHAIR - STEP 3: How much assistance does the patient require from the helper? Lifting of the legs TRANSFERS: BED, CHAIR, WHEELCHAIR - STEP 4: How many legs does the patient require the helper to lift? both legs TRANSFERS: BED, CHAIR, WHEELCHAIR - SCORE: 3-MOD TRANSFERS: TOILET: TRANSFERS: TOILET - STEP 1: Does the patient require assistance with toilet transfers? Yes. TRANSFERS: TOILET - STEP 2: Does the patient require the assistance of a helper? Yes. TRANSFERS: TOILET - STEP 3: How much assistance does the patient require from the helper? Patient performs half or more of the tr ansferring tasks TRANSFERS: TOILET - STEP 4: Does the patient need only incidental help such as contact guard or steadying during toilet transfer? No. Patient needs more than incidental help TRANSFERS: TOILET - SCORE: 3-MOD TRANSFERS: SHOWER: Activity did not occur on this shift TRANSFERS: SHOWER - SCORE: 0-UNK TRANSFERS: TUB: Activity did not occur on this shift TRANSFERS: TUB - SCORE: 0-UNK LOCOMOTION: WALK: Activity did not occur on this shift LOCOMOTION: WALK - SCORE: 0-UNK LOCOMOTION: WHEELCHAIR: Activity did not occur on this shift LOCOMOTION: WHEELCHAIR - SCORE: 0-UNK COMPREHENSION: COMPREHENSION: TYPE: Both COMPREHENSION - STEP 1: Does the patient require help to understand complex and abstract ideas (such as current events, finan sebastian, discharge planning, medical issues, relationships, etc)? No. COMPREHENSION - STEP 2: Does the patient need extra time, require an assistive device (such as glasses for visual comprehensi on or a hearing aid for auditory comprehension) or does s/he have mild difficulty understanding compl ex and abstract information? Yes. COMPREHENSION - SCORE: 6-LUIS ARMANDO EXPRESSION EXPRESSION: TYPE: Both EXPRESSION - STEP 1: Does the patient require help expressing complex and abstract ideas (such as current events, finances , discharge planning, medical issues, relationships, etc)? No. EXPRESSION - STEP 2: Does the patient need extra time, require an assistive device (such as augmentive communication syste m or a communication board), OR does s/he have mild difficulty expressing complex and abstract ideas (including mild dysarthria or mild word-find problems)? Yes. EXPRESSION - SCORE: 6-LUIS ARMANDO SOCIAL INTERACTION: SOCIAL INTERACTION - STEP 1: Does the patient require a helper to interact with others in social and therapeutic situations? No. SOCIAL INTERACTION - STEP 2: Does the patient need extra time in social situations, OR does s/he interact with staff, other patien ts, and family members ONLY in structured environments, OR does s/he require medication for social in teraction? Yes, patient needs extra time SOCIAL INTERACTION - SCORE: 6-LUIS ARMANDO PROBLEM SOLVING: PROBLEM SOLVING - STEP 1: Does the patient need help to solve complex problems such as managing a checking account or confronti ng interpersonal problems? No. PROBLEM SOLVING - STEP 2: Does the patient require extra time to make decisions or solve problems, OR does s/he have slight dif ficulty reading, initiating, or self-correcting in unfamiliar situations? Yes, patient needs extra ti me. PROBLEM SOLVING - SCORE: 6-LUIS ARMANDO MEMORY: MEMORY - STEP 1: Does the patient need help to remember frequently encountered people, daily routines, and executing r equests? No. MEMORY - STEP 2: Does the patient have slight difficulty recognizing frequently encountered people, daily routines, or executing requests without the need for repetition or using self-initiated or environmental cues to remember? Yes. MEMORY - SCORE: 6-LUIS ARMANDO
[2017-12-21] MEDS: FUROSEMIDE 40 MG TABLET PO SCH (04:25)
[2017-12-21] MEDS: PANTOPRAZOLE 40MG TABLET PO SCH (07:02)
[2017-12-21] MEDS ORDERED: GABAPENTIN 100 MG CAP ONE (07:42)
[2017-12-21] MEDS: ARFORMOTEROL TARTRATE 15 MCG/2 ML VIAL.NEB NEB SCH ×2 (07:53→20:29)
[2017-12-21] MEDS: PROMOD 30 ML DOSE PO SCH ×2 (08:00→20:18)
[2017-12-21] MEDS: LIDOCAINE 5% PATCH TOP SCH (08:46)
[2017-12-21] MEDS: ASPIRIN EC 81 MG TAB PO SCH (08:47)
[2017-12-21] MEDS: CRANBERRY FRUIT EXTRACT 200 MG CAP PO SCH ×2 (08:47→20:13)
[2017-12-21] MEDS: LISINOPRIL 20 MG TAB PO SCH (08:47)
[2017-12-21] MEDS: APIXABAN 2.5 MG TABLET PO SCH ×2 (08:48→20:13)
[2017-12-21] MEDS: METOPROLOL TAR 50 MG TAB PO SCH (08:48)
[2017-12-21] MEDS: predniSONE 20 MG TAB PO SCH (08:48)
[2017-12-21] MEDS: SERTRALINE HCL 50 MG TAB PO SCH (08:48)
[2017-12-21] MEDS: ALBUTEROL INHALER 60 PUFF/8 GM IH SCH ×4 (08:50→20:20)
[2017-12-21] MEDS: CIPROFLOXACIN 0.3% ML OPHTH OPTH SCH ×2 (08:50→20:19)
[2017-12-21] MEDS: GABAPENTIN 300 MG CAP PO SCH ×2 (10:33→20:12)
[2017-12-21] MEDS: AMLODIPINE 5 MG TAB PO SCH (10:33)
[2017-12-21] MEDS: clonazePAM 1 MG TAB PO PRN (13:45)
--- NOTE | 2017-12-21 16:02 | FAST ---
SHIFT START DATE/TIME: 12/21/2017 07:00 (CDT) SHIFT END DATE/TIME: 12/21/2017 19:00 (CDT) NAME ELIJAH ORTEGA DATE OF : 1950 DATE OF ADMISSION: 12/13/2017 18:47 (CDT) PHONE: AGE: 67 N# [id number] GENDER: Female ENCOUNTER PHYSICIAN: Dr. Pancho De Santiago M.D. ADMISSION DIAGNOSIS: - Medically Complex Conditions 17 - Other Medically Complex Conditions (17.9) colitis. hypertension. chronic Afib. CHF systolic. COPD. Anxiety. EATING: EATING - STEP 1: Does the patient require assistance when eating? Yes. EATING - STEP 2: Does the patient require the assistance of a helper? No, patient only requires an assistive device, O R s/he takes more than reasonable time to eat, OR there is a safety concern, OR s/he requires modifie d food consistency EATING - SCORE: 6-LUIS ARMANDO GROOMING: Comb/brush hair Wash, rinse, and dry face Wash, rinse, and dry hands GROOMING - STEP 1: Does the patient require assistance when grooming? Yes. GROOMING - STEP 2: Does the patient require the assistance of a helper? No. The patient only requires an assistive devic e, OR takes more than reasonable time to groom, OR there is a concern for safety as the patient groom s GROOMING - SCORE: 6-LUIS ARMANDO BATHING: Activity did not occur on this shift BATHING - SCORE: 0-UNK DRESSING - UPPER BODY: T-shirt/pullover shirt (four steps) ARTICLES SCORE Total number of steps: 4 DRESSING - UPPER BODY - STEP 1: Does the patient require help when dressing above the waist? Yes. DRESSING - UPPER BODY - STEP 2: Does the patient require the assistance of a helper? No. Patient only requires an assistive device, s uch as a button hook, velcro, or bakery deliverer. OR s/he takes more than reasonable time as s/he dresses the upper body. OR there is a concern for safety when s/he dresses the upper body DRESSING - UPPER BODY - SCORE: 6-LUIS ARMANDO DRESSING - LOWER BODY: Underwear (three steps) ARTICLES SCORE Total number of steps: 3 DRESSING - LOWER BODY - STEP 1: Does the patient require help when dressing below the waist? Yes. DRESSING - LOWER BODY - STEP 2: Does the patient require the assistance of a helper? No. Patient requires an assistive device such as a bakery deliverer. OR s/he takes more than reasonable time as s/he dresses the lower body, OR there is a con cern for safety when s/he dresses the lower body DRESSING - LOWER BODY - SCORE: 6-LUIS ARMANDO TOILETING: TOILETING - STEP 1: Does the patient require assistance with toileting? Yes. TOILETING - STEP 2: Does the patient require the assistance of a helper? Yes. TOILETING - STEP 3: How much assistance does the patient require from the helper? Only supervision TOILETING - SCORE: 5-SUP BLADDER MANAGEMENT: BLADDER MANAGEMENT - STEP 1: Does the patient control the bladder completely and intentionally without equipment or devices or med ications, and is always continent? No. BLADDER MANAGEMENT - STEP 2: Does the patient require the assistance of a helper? No, patient only requires extra time BLADDER MANAGEMENT - SCORE: 6-LUIS ARMANDO BLADDER MANAGEMENT - FREQUENCY OF ACCIDENTS: BLADDER MANAGEMENT(FA) - STEP 1: How many accidents has the patient had during the current shift? 0 BOWEL MANAGEMENT: Activity did not occur on this shift BOWEL MANAGEMENT - SCORE: 7-IND TRANSFERS: BED, CHAIR, WHEELCHAIR: TRANSFERS: BED, CHAIR, WHEELCHAIR - STEP 1: Does the patient require assistance with bed, chair, or wheelchair transfers? Yes. TRANSFERS: BED, CHAIR, WHEELCHAIR - STEP 2: Does the patient require the assistance of a helper? No. Patient only requires an assistive device fo r bed, chair, wheelchair transfers such as a sliding board, grab bar, or brace, OR s/he takes more th an reasonable time, OR there is a safety concern when s/he performs the transfers TRANSFERS: BED, CHAIR, WHEELCHAIR - SCORE: 6-LUIS ARMANDO TRANSFERS: TOILET: TRANSFERS: TOILET - STEP 1: Does the patient require assistance with toilet transfers? Yes. TRANSFERS: TOILET - STEP 2: Does the patient require the assistance of a helper? Yes. TRANSFERS: TOILET - STEP 3: How much assistance does the patient require from the helper? Only supervision, cuing, coaxing, OR he lp to set out transfer equipment or to lock brakes and/or lift foot rests TRANSFERS: TOILET - SCORE: 5-SUP TRANSFERS: SHOWER: Activity did not occur on this shift TRANSFERS: SHOWER - SCORE: 0-UNK TRANSFERS: TUB: Activity did not occur on this shift TRANSFERS: TUB - SCORE: 0-UNK LOCOMOTION: WALK: Activity did not occur on this shift LOCOMOTION: WALK - SCORE: 0-UNK LOCOMOTION: WHEELCHAIR: Activity did not occur on this shift LOCOMOTION: WHEELCHAIR - SCORE: 0-UNK COMPREHENSION: COMPREHENSION: TYPE: Both COMPREHENSION - STEP 1: Does the patient require help to understand complex and abstract ideas (such as current events, finan sebastian, discharge planning, medical issues, relationships, etc)? No. COMPREHENSION - STEP 2: Does the patient need extra time, require an assistive device (such as glasses for visual comprehensi on or a hearing aid for auditory comprehension) or does s/he have mild difficulty understanding compl ex and abstract information? Yes. COMPREHENSION - SCORE: 6-LUIS ARMANDO EXPRESSION EXPRESSION: TYPE: Both EXPRESSION - STEP 1: Does the patient require help expressing complex and abstract ideas (such as current events, finances , discharge planning, medical issues, relationships, etc)? No. EXPRESSION - STEP 2: Does the patient need extra time, require an assistive device (such as augmentive communication syste m or a communication board), OR does s/he have mild difficulty expressing complex and abstract ideas (including mild dysarthria or mild word-find problems)? Yes. EXPRESSION - SCORE: 6-LUIS ARMANDO SOCIAL INTERACTION: SOCIAL INTERACTION - STEP 1: Does the patient require a helper to interact with others in social and therapeutic situations? No. SOCIAL INTERACTION - STEP 2: Does the patient need extra time in social situations, OR does s/he interact with staff, other patien ts, and family members ONLY in structured environments, OR does s/he require medication for social in teraction? Yes, patient needs extra time SOCIAL INTERACTION - SCORE: 6-LUIS ARMANDO PROBLEM SOLVING: PROBLEM SOLVING - STEP 1: Does the patient need help to solve complex problems such as managing a checking account or confronti ng interpersonal problems? No. PROBLEM SOLVING - STEP 2: Does the patient require extra time to make decisions or solve problems, OR does s/he have slight dif ficulty reading, initiating, or self-correcting in unfamiliar situations? Yes, patient needs extra ti me. PROBLEM SOLVING - SCORE: 6-LUIS ARMANDO MEMORY: MEMORY - STEP 1: Does the patient need help to remember frequently encountered people, daily routines, and executing r equests? No. MEMORY - STEP 2: Does the patient have slight difficulty recognizing frequently encountered people, daily routines, or executing requests without the need for repetition or using self-initiated or environmental cues to remember? Yes. MEMORY - SCORE: 6-LUIS ARMANDO SIGNATURE PANEL: The following modified sections: Eating - Score, Grooming - Score, Bathing - Score, Dressing - Upper Body - Score, Dressing - Lower Body - Score, Toileting - Score, Bladder Management - Score, Bowel Man agement - Score, Transfers: Bed, Chair, Wheelchair - Score, Transfers: Toilet - Score, Transfers: Yuli wer - Score, Transfers: Tub - Score, Locomotion: Walk - Score, Locomotion: Wheelchair - Score, Compre hension - Score, Expression - Score, Social Interaction - Score, Problem Solving - Score, Memory - Sc ore were [electronically] signed by Jose GuzmanNGauri on Sat Dec 21 2017 16:00:42 T-0500 (Centra l Daylight Time)
[2017-12-21] MEDS: DIPHENHYDRAMINE 25 MG TAB/CAP PO PRN (20:22)
[2017-12-21 20:54] VITALS: O2SAT 100
[2017-12-22] MEDS: Oxycodone HCl/Acetaminophen 1 TAB TAB PO PRN ×5 (00:08→21:11)
--- NOTE | 2017-12-22 02:30 | FAST ---
SHIFT START DATE/TIME: 12/21/2017 19:00 (CDT) SHIFT END DATE/TIME: 12/22/2017 07:00 (CDT) NAME ELIJAH ORTEGA DATE OF : 1950 DATE OF ADMISSION: 12/13/2017 18:47 (CDT) PHONE: AGE: 67 N# [id number] GENDER: Female ENCOUNTER PHYSICIAN: Dr. Pancho De Santiago M.D. ADMISSION DIAGNOSIS: - Medically Complex Conditions 17 - Other Medically Complex Conditions (17.9) colitis. hypertension. chronic Afib. CHF systolic. COPD. Anxiety. EATING: Activity did not occur on this shift EATING - SCORE: 0-UNK GROOMING: Wash, rinse, and dry hands GROOMING - STEP 1: Does the patient require assistance when grooming? Yes. GROOMING - STEP 2: Does the patient require the assistance of a helper? Yes. GROOMING - STEP 3: How much assistance does the patient require from the helper? Only prior equipment preparation/set up from the helper GROOMING - SCORE: 5-SUP BATHING: Activity did not occur on this shift BATHING - SCORE: 0-UNK DRESSING - UPPER BODY: Patient is not dressing in public clothing ARTICLES SCORE Total number of steps: 0 DRESSING - UPPER BODY - SCORE: 0-UNK DRESSING - LOWER BODY: Patient is not dressing in public clothing ARTICLES SCORE Total number of steps: 0 DRESSING - LOWER BODY - SCORE: 0-UNK TOILETING: TOILETING - STEP 1: Does the patient require assistance with toileting? Yes. TOILETING - STEP 2: Does the patient require the assistance of a helper? Yes. TOILETING - STEP 3: How much assistance does the patient require from the helper? Hands-on assistance from the helper TOILETING - STEP 4: Of the 3 tasks: 1) Adjusting clothing prior to use, 2) Cleansing of perineal area, 3) Adjusting clot brooks after use; How many tasks does the patient perform WITHOUT assistance of the helper? Two tasks TOILETING - SCORE: 3-MOD BLADDER MANAGEMENT: BLADDER MANAGEMENT - STEP 1: Does the patient control the bladder completely and intentionally without equipment or devices or med ications, and is always continent? No. BLADDER MANAGEMENT - STEP 2: Does the patient require the assistance of a helper? Yes. BLADDER MANAGEMENT - STEP 3: How much assistance does the patient require from the helper? Only set-up of equipment - such as plac ing it within reach of the patient or emptying a device - to maintain either satisfactory voiding pat tern or managing an external device, such as an absorbent pad, ileal device, or catheter BLADDER MANAGEMENT - SCORE: 5-SUP BOWEL MANAGEMENT: Activity did not occur on this shift BOWEL MANAGEMENT - SCORE: 7-IND TRANSFERS: BED, CHAIR, WHEELCHAIR: TRANSFERS: BED, CHAIR, WHEELCHAIR - STEP 1: Does the patient require assistance with bed, chair, or wheelchair transfers? Yes. TRANSFERS: BED, CHAIR, WHEELCHAIR - STEP 2: Does the patient require the assistance of a helper? Yes. TRANSFERS: BED, CHAIR, WHEELCHAIR - STEP 3: How much assistance does the patient require from the helper? Lifting of the patient TRANSFERS: BED, CHAIR, WHEELCHAIR - STEP 4: Does the helper lift the patient ONLY up? ONLY down? Up AND Down? ONLY up. TRANSFERS: BED, CHAIR, WHEELCHAIR - SCORE: 3-MOD TRANSFERS: TOILET: TRANSFERS: TOILET - STEP 1: Does the patient require assistance with toilet transfers? Yes. TRANSFERS: TOILET - STEP 2: Does the patient require the assistance of a helper? Yes. TRANSFERS: TOILET - STEP 3: How much assistance does the patient require from the helper? Patient performs half or more of the tr ansferring tasks TRANSFERS: TOILET - STEP 4: Does the patient need only incidental help such as contact guard or steadying during toilet transfer? Yes. TRANSFERS: TOILET - SCORE: 4-MIN TRANSFERS: SHOWER: Activity did not occur on this shift TRANSFERS: SHOWER - SCORE: 0-UNK TRANSFERS: TUB: Activity did not occur on this shift TRANSFERS: TUB - SCORE: 0-UNK LOCOMOTION: WALK: Activity did not occur on this shift LOCOMOTION: WALK - SCORE: 0-UNK LOCOMOTION: WHEELCHAIR: Activity did not occur on this shift LOCOMOTION: WHEELCHAIR - SCORE: 0-UNK COMPREHENSION: COMPREHENSION: TYPE: Both COMPREHENSION - STEP 1: Does the patient require help to understand complex and abstract ideas (such as current events, finan sebastian, discharge planning, medical issues, relationships, etc)? No. COMPREHENSION - STEP 2: Does the patient need extra time, require an assistive device (such as glasses for visual comprehensi on or a hearing aid for auditory comprehension) or does s/he have mild difficulty understanding compl ex and abstract information? Yes. COMPREHENSION - SCORE: 6-LUIS ARMANDO EXPRESSION EXPRESSION: TYPE: Both EXPRESSION - STEP 1: Does the patient require help expressing complex and abstract ideas (such as current events, finances , discharge planning, medical issues, relationships, etc)? No. EXPRESSION - STEP 2: Does the patient need extra time, require an assistive device (such as augmentive communication syste m or a communication board), OR does s/he have mild difficulty expressing complex and abstract ideas (including mild dysarthria or mild word-find problems)? Yes. EXPRESSION - SCORE: 6-LUIS ARMANDO SOCIAL INTERACTION: SOCIAL INTERACTION - STEP 1: Does the patient require a helper to interact with others in social and therapeutic situations? No. SOCIAL INTERACTION - STEP 2: Does the patient need extra time in social situations, OR does s/he interact with staff, other patien ts, and family members ONLY in structured environments, OR does s/he require medication for social in teraction? Yes, patient requires medication for social interaction SOCIAL INTERACTION - SCORE: 6-LUIS ARMANDO PROBLEM SOLVING: PROBLEM SOLVING - STEP 1: Does the patient need help to solve complex problems such as managing a checking account or confronti ng interpersonal problems? Yes. PROBLEM SOLVING - STEP 2: Does the patient solve basic routine problems half or more of the time? Yes. PROBLEM SOLVING - STEP 3: How often does the patient need help to solve basic routine problems? 10%-24% of the time PROBLEM SOLVING - SCORE: 4-MIN MEMORY: MEMORY - STEP 1: Does the patient need help to remember frequently encountered people, daily routines, and executing r equests? No. MEMORY - STEP 2: Does the patient have slight difficulty recognizing frequently encountered people, daily routines, or executing requests without the need for repetition or using self-initiated or environmental cues to remember? No. MEMORY - SCORE: 7-IND SIGNATURE PANEL: The following modified sections: Eating - Score, Grooming - Score, Dressing - Upper Body - Score, Jose ssing - Lower Body - Score, Toileting - Score, Bladder Management - Score, Bowel Management - Score, Transfers: Bed, Chair, Wheelchair - Score, Transfers: Toilet - Score, Transfers: Shower - Score, Kramer sfers: Tub - Score, Locomotion: Walk - Score, Locomotion: Wheelchair - Score, Comprehension - Score, Expression - Score, Social Interaction - Score, Problem Solving - Score, Memory - Score were [electro nically] signed by Sandra Don CNA on Sun Dec 22 2017 02:22:27 GMT-0500 (Central Daylight Time)
[2017-12-22] MEDS: FUROSEMIDE 40 MG TABLET PO SCH (05:20)
[2017-12-22] MEDS: PANTOPRAZOLE 40MG TABLET PO SCH (07:00)
[2017-12-22] MEDS: CRANBERRY FRUIT EXTRACT 200 MG CAP PO SCH ×2 (08:00→20:28)
[2017-12-22] MEDS: ARFORMOTEROL TARTRATE 15 MCG/2 ML VIAL.NEB NEB SCH ×2 (08:00→20:20)
[2017-12-22] MEDS: GABAPENTIN 300 MG CAP PO SCH ×2 (08:31→20:28)
[2017-12-22] MEDS: AMLODIPINE 5 MG TAB PO SCH (08:32)
[2017-12-22] MEDS: APIXABAN 2.5 MG TABLET PO SCH ×2 (08:32→20:28)
[2017-12-22] MEDS: LISINOPRIL 20 MG TAB PO SCH (08:32)
[2017-12-22] MEDS: ASPIRIN EC 81 MG TAB PO SCH (08:33)
[2017-12-22] MEDS: SERTRALINE HCL 50 MG TAB PO SCH (08:33)
[2017-12-22] MEDS: predniSONE 20 MG TAB PO SCH (08:33)
[2017-12-22] MEDS: LIDOCAINE 5% PATCH TOP SCH (08:34)
[2017-12-22] MEDS: PROMOD 30 ML DOSE PO SCH ×2 (09:52→20:29)
[2017-12-22] MEDS: ALBUTEROL INHALER 60 PUFF/8 GM IH SCH ×4 (09:52→20:29)
[2017-12-22] MEDS: CIPROFLOXACIN 0.3% ML OPHTH OPTH SCH ×2 (09:54→20:28)
[2017-12-22] MEDS: METOPROLOL TAR 50 MG TAB PO SCH (09:54)
[2017-12-22] MEDS: clonazePAM 1 MG TAB PO PRN (11:41)
[2017-12-22] MEDS: DIPHENHYDRAMINE 25 MG TAB/CAP PO PRN (20:31)
[2017-12-23] MEDS: Oxycodone HCl/Acetaminophen 1 TAB TAB PO PRN ×4 (01:05→12:29)
--- NOTE | 2017-12-23 02:04 | FAST ---
SHIFT START DATE/TIME: 12/22/2017 19:00 (CDT) SHIFT END DATE/TIME: 12/23/2017 07:00 (CDT) NAME ELIJAH ORTEGA DATE OF : 1950 DATE OF ADMISSION: 12/13/2017 18:47 (CDT) PHONE: AGE: 67 N# [id number] GENDER: Female ENCOUNTER PHYSICIAN: Dr. Pancho De Santiago M.D. ADMISSION DIAGNOSIS: - Medically Complex Conditions 17 - Other Medically Complex Conditions (17.9) colitis. hypertension. chronic Afib. CHF systolic. COPD. Anxiety. EATING: Activity did not occur on this shift EATING - SCORE: 0-UNK GROOMING: Wash, rinse, and dry hands GROOMING - STEP 1: Does the patient require assistance when grooming? Yes. GROOMING - STEP 2: Does the patient require the assistance of a helper? Yes. GROOMING - STEP 3: How much assistance does the patient require from the helper? Only prior equipment preparation/set up from the helper GROOMING - SCORE: 5-SUP BATHING: Activity did not occur on this shift BATHING - SCORE: 0-UNK DRESSING - UPPER BODY: Patient is not dressing in public clothing ARTICLES SCORE Total number of steps: 0 DRESSING - UPPER BODY - SCORE: 0-UNK DRESSING - LOWER BODY: Patient is not dressing in public clothing ARTICLES SCORE Total number of steps: 0 DRESSING - LOWER BODY - SCORE: 0-UNK TOILETING: TOILETING - STEP 1: Does the patient require assistance with toileting? Yes. TOILETING - STEP 2: Does the patient require the assistance of a helper? Yes. TOILETING - STEP 3: How much assistance does the patient require from the helper? Hands-on assistance from the helper TOILETING - STEP 4: Of the 3 tasks: 1) Adjusting clothing prior to use, 2) Cleansing of perineal area, 3) Adjusting clot brooks after use; How many tasks does the patient perform WITHOUT assistance of the helper? Two tasks TOILETING - SCORE: 3-MOD BLADDER MANAGEMENT: BLADDER MANAGEMENT - STEP 1: Does the patient control the bladder completely and intentionally without equipment or devices or med ications, and is always continent? No. BLADDER MANAGEMENT - STEP 2: Does the patient require the assistance of a helper? Yes. BLADDER MANAGEMENT - STEP 3: How much assistance does the patient require from the helper? Only set-up of equipment - such as plac ing it within reach of the patient or emptying a device - to maintain either satisfactory voiding pat tern or managing an external device, such as an absorbent pad, ileal device, or catheter BLADDER MANAGEMENT - SCORE: 5-SUP BOWEL MANAGEMENT: BOWEL MANAGEMENT - STEP 1: Does the patient control bowels completely and intentionally without equipment devices or medications AND is always continent? No. BOWEL MANAGEMENT - STEP 2: Does the patient require the assistance of a helper? Yes. BOWEL MANAGEMENT - STEP 3: How much assistance does the patient require from the helper? Patient requires supervision, stand by, cueing, coaxing, or setup of equipment - placing within reach of patient and emptying device / bedpa nd or BSC bucket - to maintain either satisfactory bowel pattern or managing an external device such as an absorbent pad, colostomy bag / ileostomy bag BOWEL MANAGEMENT - SCORE: 5-SUP TRANSFERS: BED, CHAIR, WHEELCHAIR: TRANSFERS: BED, CHAIR, WHEELCHAIR - STEP 1: Does the patient require assistance with bed, chair, or wheelchair transfers? Yes. TRANSFERS: BED, CHAIR, WHEELCHAIR - STEP 2: Does the patient require the assistance of a helper? Yes. TRANSFERS: BED, CHAIR, WHEELCHAIR - STEP 3: How much assistance does the patient require from the helper? Lifting of the legs TRANSFERS: BED, CHAIR, WHEELCHAIR - STEP 4: How many legs does the patient require the helper to lift? both legs TRANSFERS: BED, CHAIR, WHEELCHAIR - SCORE: 3-MOD TRANSFERS: TOILET: TRANSFERS: TOILET - STEP 1: Does the patient require assistance with toilet transfers? Yes. TRANSFERS: TOILET - STEP 2: Does the patient require the assistance of a helper? Yes. TRANSFERS: TOILET - STEP 3: How much assistance does the patient require from the helper? Patient performs half or more of the tr ansferring tasks TRANSFERS: TOILET - STEP 4: Does the patient need only incidental help such as contact guard or steadying during toilet transfer? Yes. TRANSFERS: TOILET - SCORE: 4-MIN TRANSFERS: SHOWER: Activity did not occur on this shift TRANSFERS: SHOWER - SCORE: 0-UNK TRANSFERS: TUB: Activity did not occur on this shift TRANSFERS: TUB - SCORE: 0-UNK LOCOMOTION: WALK: Activity did not occur on this shift LOCOMOTION: WALK - SCORE: 0-UNK LOCOMOTION: WHEELCHAIR: Activity did not occur on this shift LOCOMOTION: WHEELCHAIR - SCORE: 0-UNK COMPREHENSION: COMPREHENSION: TYPE: Both COMPREHENSION - STEP 1: Does the patient require help to understand complex and abstract ideas (such as current events, finan sebastian, discharge planning, medical issues, relationships, etc)? No. COMPREHENSION - STEP 2: Does the patient need extra time, require an assistive device (such as glasses for visual comprehensi on or a hearing aid for auditory comprehension) or does s/he have mild difficulty understanding compl ex and abstract information? Yes. COMPREHENSION - SCORE: 6-LUIS ARMANDO EXPRESSION EXPRESSION: TYPE: Both EXPRESSION - STEP 1: Does the patient require help expressing complex and abstract ideas (such as current events, finances , discharge planning, medical issues, relationships, etc)? No. EXPRESSION - STEP 2: Does the patient need extra time, require an assistive device (such as augmentive communication syste m or a communication board), OR does s/he have mild difficulty expressing complex and abstract ideas (including mild dysarthria or mild word-find problems)? No. EXPRESSION - SCORE: 7-IND SOCIAL INTERACTION: SOCIAL INTERACTION - STEP 1: Does the patient require a helper to interact with others in social and therapeutic situations? No. SOCIAL INTERACTION - STEP 2: Does the patient need extra time in social situations, OR does s/he interact with staff, other patien ts, and family members ONLY in structured environments, OR does s/he require medication for social in teraction? Yes, patient needs extra time SOCIAL INTERACTION - SCORE: 6-LUIS ARMANDO PROBLEM SOLVING: PROBLEM SOLVING - STEP 1: Does the patient need help to solve complex problems such as managing a checking account or confronti ng interpersonal problems? Yes. PROBLEM SOLVING - STEP 2: Does the patient solve basic routine problems half or more of the time? Yes. PROBLEM SOLVING - STEP 3: How often does the patient need help to solve basic routine problems? 10%-24% of the time PROBLEM SOLVING - SCORE: 4-MIN MEMORY: MEMORY - STEP 1: Does the patient need help to remember frequently encountered people, daily routines, and executing r equests? No. MEMORY - STEP 2: Does the patient have slight difficulty recognizing frequently encountered people, daily routines, or executing requests without the need for repetition or using self-initiated or environmental cues to remember? Yes. MEMORY - SCORE: 6-LUIS ARMANDO SIGNATURE PANEL: The following modified sections: Eating - Score, Grooming - Score, Dressing - Upper Body - Score, Jose ssing - Lower Body - Score, Toileting - Score, Bladder Management - Score, Bowel Management - Score, Transfers: Bed, Chair, Wheelchair - Score, Transfers: Toilet - Score, Transfers: Shower - Score, Kramer sfers: Tub - Score, Locomotion: Walk - Score, Locomotion: Wheelchair - Score, Comprehension - Score, Expression - Score, Social Interaction - Score, Problem Solving - Score, Memory - Score were [electro nically] signed by Sandra Don CNA on SatDec 23 2017 01:56:32 GMT-0500 (Central Daylight Time)
[2017-12-23] MEDS: FUROSEMIDE 40 MG TABLET PO SCH (05:17)
[2017-12-23] MEDS: PANTOPRAZOLE 40MG TABLET PO SCH (06:30)
[2017-12-23] MEDS: ARFORMOTEROL TARTRATE 15 MCG/2 ML VIAL.NEB NEB SCH (08:00)
[2017-12-23] MEDS: CIPROFLOXACIN 0.3% ML OPHTH OPTH SCH (08:00)
[2017-12-23] MEDS: APIXABAN 2.5 MG TABLET PO SCH (08:45)
[2017-12-23] MEDS: AMLODIPINE 5 MG TAB PO SCH (08:45)
[2017-12-23] MEDS: LISINOPRIL 20 MG TAB PO SCH (08:45)
[2017-12-23] MEDS: CRANBERRY FRUIT EXTRACT 200 MG CAP PO SCH (08:45)
[2017-12-23] MEDS: GABAPENTIN 300 MG CAP PO SCH (08:45)
[2017-12-23] MEDS: PROMOD 30 ML DOSE PO SCH (08:46)
[2017-12-23] MEDS: METOPROLOL TAR 50 MG TAB PO SCH (08:46)
[2017-12-23] MEDS: SERTRALINE HCL 50 MG TAB PO SCH (08:46)
[2017-12-23] MEDS: ASPIRIN EC 81 MG TAB PO SCH (08:46)
[2017-12-23] MEDS: predniSONE 20 MG TAB PO SCH (08:46)
[2017-12-23] MEDS: ALBUTEROL INHALER 60 PUFF/8 GM IH SCH ×2 (08:47→12:27)
[2017-12-23] MEDS: LIDOCAINE 5% PATCH TOP SCH (08:47)
[2017-12-23 08:48] VITALS: BP 136/57
[2017-12-23 09:10] VITALS: TEMP 97.2
[2017-12-23] MEDS: clonazePAM 1 MG TAB PO PRN (12:29)
== END 2017-12-23 14:25 | disposition home health service (06) | DRG 392 ==
LOC: 5TH 18:47
PROVIDERS: ADMIT Psychiatry & Neurology Neurology with Special Qualifications in Child Neurology; ATTEND Psychiatry & Neurology Neurology with Special Qualifications in Child Neurology
DX: K52.9 Noninfective gastroenteritis and colitis, unspecified (principal); E87.2 Acidosis; I50.20 Unspecified systolic (congestive) heart failure; J45.909 Unspecified asthma, uncomplicated; I10 Essential (primary) hypertension; I48.2 Chronic atrial fibrillation; J44.9 Chronic obstructive pulmonary disease, unspecified
CPT/HCPCS: 36415; 80048; 81001; 82040; 83735; 84134; 85025; 87077; 87086; 87088; 87186; 87493; J0744; J7512; J7605

== ENCOUNTER 2018-01-17 18:18 | Inpatient (IN) | payer OTHER ==
[2018-01-17 19:15] LABS: Protime INR 1.09
[2018-01-17 19:16] LABS: Absolute Lymphocytes (CBC) 2.1 K/uL (0.7-4.9); Absolute Monocytes 0.8 K/uL (0.1-1.3); Absolute Neutrophil 7.1 K/uL (1.8-8.0); Basophils % 0.5 % (0-1.3); Eosinophils % 1.1 % (0-4.4); Hematocrit 40.4 % (36.0-45.0); Lymphocytes % 20.6 % (15.3-44.8); MCH 28.2 pg (27.0-35.0); MCV 87.3 fL (80-100); MPV 7.5 fL (7.6-11.3); Monocytes % 8.3 % (3.3-12.3); RBC Red Blood Cell Count 4.62 M/uL (3.86-4.86)
[2018-01-17 19:30] LABS: ALT/SGPT 16 U/L (12-78); AST/SGOT 22 U/L (15-37); Albumin 3.3 g/dL (3.4-5.0); Alkaline Phosphatase 83 U/L (45-117); BUN Blood Urea Nitrogen 8 mg/dL (7-18); Bicarbonate 29 mmol/L (21-32); Bilirubin Direct 0.1 mg/dL (0-0.2); Bilirubin Total 0.3 mg/dL (0.2-1.0); Glucose Level 115 mg/dL (74-106); Magnesium 1.8 mg/dL (1.8-2.4); NT PRO-BNP 1073 pg/mL (<125); Potassium 4.3 mmol/L (3.5-5.1); Protein, Total 6.9 g/dL (6.4-8.2); Sodium Level 142 mmol/L (136-145); Troponin (Emerg Dept Use Only) < 0.02 ng/mL (0.0-0.045)
[2018-01-17] MEDS ORDERED: IPRATROPIUM BROM 0.5MG/2.5ML ONE (19:33)
[2018-01-17] MEDS ORDERED: ALBUTEROL 2.5 MG/3 ML NEB SOL ONE (19:33)
[2018-01-17] MEDS ORDERED: ASPIRIN 81 MG CHEWABLE TABLET ONE (19:33)
[2018-01-17] MEDS ORDERED: ONDANSETRON 4 MG/2 ML VIAL ONE (19:34)
--- NOTE | 2018-01-17 19:54 | RAD REPORT ---
EXAM DESCRIPTION: Vikash Single View01/17/2018 7:47 pm CLINICAL HISTORY: sob COMPARISON: October 2017 FINDINGS: The lungs appear clear of acute infiltrate. The heart is normal size IMPRESSION: No acute abnormalities displayed
[2018-01-17] MEDS ORDERED: FUROSEMIDE 20 MG/ 2ML VIAL ONE (19:56)
[2018-01-17] MEDS ORDERED: ACETAMINOPHEN 500 MG TAB PO PRN (20:41)
[2018-01-17] MEDS ORDERED: METOPROLOL TAR 25 MG TAB PO ONE (20:47)
--- NOTE | 2018-01-17 20:48 | ER ---
Nurse's Notes [facility] Name: Amy Velasquez Age: 67 yrs Sex: Female : 1950 Arrival Date: 01/17/2018 Time: 18:22 Bed 4 Private MD: Lucho Catalan Diagnosis: Chest pain, unspecified;Unspecified combined systolic (congestive) and diastolic (congestive) heart failure Presentation: 01/17 18:33 Presenting complaint: Patient states: SHORTNESS OF BREATH x2 DAYS. Transition of care: bp patient was not received from another setting of care. Onset of symptoms is unknown. Risk Assessment: Do you want to hurt yourself or someone else? Patient reports no desire to harm self or others. Initial Sepsis Screen: Does the patient meet any 2 criteria? HR > 90 bpm. No. Patient's initial sepsis screen is negative. Does the patient have a suspected source of infection? No. Patient's initial sepsis screen is negative. Care prior to arrival: None. 18:33 Method Of Arrival: Wheelchair bp 18:33 Acuity: BHARTI 2 bp Triage Assessment: 18:39 General: Appears distressed, uncomfortable, obese, Behavior is cooperative, appropriate bp for age, agitated, anxious. Pain: Denies pain. EENT: No deficits noted. Neuro: Level of Consciousness is awake, alert, obeys commands, Oriented to person, place, time, situation, Appropriate for age. Cardiovascular: Rhythm is sinus tachycardia. Respiratory: Reports shortness of breath at rest on exertion Onset: The symptoms/episode began/occurred 2 DAYS, the patient has moderate shortness of breath. GI: No signs and/or symptoms were reported involving the gastrointestinal system. : No signs and/or symptoms were reported regarding the genitourinary system. Derm: No deficits noted. Musculoskeletal: Circulation, motion, and sensation intact. Range of motion: intact in all extremities. Historical: - Allergies: 18:39 Amitriptyline; bp 18:39 Cipro; bp 18:39 Morphine (rash, Itching); bp 18:39 Phenobarbital; bp - Home Meds: 18:39 amlodipine 5 mg tab 1 tab once daily [Active]; aspirin 81 mg Oral chew 1 tab once daily bp [Active]; Cheratussin AC 10-100 mg/5 mL Oral liqd 10 mL every 4 hours [Active]; clonazepam 1 mg Oral tab 1 tab once daily [Active]; gabapentin 400 mg Oral cap 1 cap 3 times per day [Active]; furosemide 20 mg Oral tab 1 tab once daily [Active]; nystatin 100,000 unit/gram Topical crea 3 times per day [Active]; sertraline 50 mg Oral tab 3 tabs once daily [Active]; Ventolin Rotahaler/Rotacaps Inhl four times a day [Active]; prednisone 20 mg Oral tab 1 tab 2 times per day [Active]; oxycodone-acetaminophen 10-325 mg Oral tab 1 tab every 6 hours for Pain [Active]; Nexium 40 mg Oral cpDR 1 cap once daily [Active]; metoprolol tartrate 50 mg Oral tab 1 tab once daily [Active]; lisinopril 40 mg Oral tab 1 tab twice a day [Active]; - PMHx: 18:39 ADD/ADHD; Anxiety; Asthma; Atrial Fib; CANCER, SKIN; COPD; CHF; Degenerative disc bp disease; Hernia; Hypertension; - Immunization history:: Adult Immunizations up to date. - Social history:: Smoking status: Patient/guardian denies using tobacco. - Ebola Screening: : Patient negative for fever greater than or equal to 101.5 degrees Fahrenheit, and additional compatible Ebola Virus Disease symptoms Patient denies exposure to infectious person Patient denies travel to an Ebola-affected area in the 21 days before illness onset No symptoms or risks identified at this time. Screenin:48 Abuse screen: Denies threats or abuse. Denies injuries from another. Nutritional bp screening: No deficits noted. Tuberculosis screening: No symptoms or risk factors identified. Fall Risk None identified. Assessment: 18:42 General: SEE TRIAGE NOTE. Cardiovascular: Rhythm is sinus tachycardia. Respiratory: bp Airway is patent Respiratory effort is labored, gasping, Respiratory pattern is hyperventilation tachypnea Breath sounds are diminished. 18:48 Reassessment: UNABLE TO OBTAIN PIV ACCESS, PROVIDER INFORMED. bp Vital Signs: 18:39 BP 137 / 102; Pulse 106; Resp 32; Temp 97.5; Pulse Ox 97% on 2 lpm NC; Weight 163.29 bp kg; Height 5 ft. 3 in. (160.02 cm); 20:19 BP 165 / 87; Pulse 87; Resp 24; Pulse Ox 97% on 2 lpm NC; ak1 20:57 BP 166 / 80; Pulse 102; Resp 24; Temp 98; Pulse Ox 96% on 2 lpm NC; Pain 5/10; ak1 18:39 Body Mass Index 63.77 (163.29 kg, 160.02 cm) bp ED Course: 18:22 Patient arrived in ED. em 18:30 You Jorge PA is PHCP. cp 18:30 Francis Mcintyre MD is Attending Physician. cp 18:34 Triage completed. bp 18:39 Arm band placed on left wrist. bp 18:43 Radiology exam delayed due to IV insertion attempt and/or patient not having mh1 appropriate IV at this time. 18:45 Melinda Caraballo RN is Primary Nurse. tw2 18:45 Missed attempt(s): 22 gauge in left forearm. Bleeding controlled, band aid applied, tw2 catheter tip intact. Missed attempt(s): 24 gauge in right hand. notified SHAD Ramey of missed attempts and need of IV access at this time.. Bleeding controlled, band aid applied, catheter tip intact. 18:48 Patient has correct armband on for positive identification. Placed in gown. Bed in low bp position. Call light in reach. Side rails up X2. Adult w/ patient. 19:40 Lucho Catalan MD is Private Physician. cp 19:47 XRAY Chest (1 view) In Process Unspecified. EDMS 20:47 Danielle Marley MD is Hospitalizing Provider. cp 21:07 No provider procedures requiring assistance completed. Patient admitted, IV remains in ak1 place. 21:11 Inserted 18 gauge 10 cm midline to left upper basilic vein on first attempt. Line with fc good blood return and flushes well. Administered Medications: 19:35 Drug: Albuterol - atroVENT (3:1) (2.5 mg - 0.5 mg) 3 ml Route: Nebulizer; ak1 19:46 Follow up: Response: No adverse reaction ak1 19:35 Drug: Aspirin Chewable Tablet 324 mg Route: PO; ak1 19:46 Follow up: Response: No adverse reaction ak1 19:36 Drug: Zofran 4 mg Route: IVP; Site: right forearm; ak1 19:46 Follow up: Response: No adverse reaction ak1 19:55 Drug: Lasix 20 mg Route: IVP; Site: right forearm; jd3 20:47 Follow up: Response: No adverse reaction ak1 20:55 Drug: Nitroglycerin 0.4 mg Route: Sublingual; ak1 21:14 Follow up: Response: No adverse reaction ak1 20:55 Drug: fentaNYL (PF) 25 mcg Route: IVP; Site: right forearm; ak1 21:14 Follow up: Response: No adverse reaction ak1 Outcome: 20:48 Decision to Hospitalize by Provider. cp 20:56 Condition: stable ak1 21:07 Instructed on the need for admit. ak1 21:51 Patient left the ED. ak1 21:56 Admitted to Med/surg accompanied by tech, via stretcher, room 207, with oxygen, with ak1 chart, Report called to Aurea KULKARNI Signatures: Dispatcher [employer] EDPaulina Xiao mh1 Omaira Davis, RN RN fc Memo Payne, CASTING MACHINE SET UP OPERATOR CASTING MACHINE SET UP OPERATOR em Danay Sun RN RN ak1 You Jorge PA PA cp Wise, Tara, RN RN 2 Charlie Scruggs RN RN jd3 Tanvir Alvarez RN RN bp
--- NOTE | 2018-01-17 20:48 | EDPHYS ---
Physician Documentation [facility] Name: Amy Velasquez Age: 67 yrs Sex: Female : 1950 Arrival Date: 01/17/2018 Time: 18:22 Bed 4 Private MD: Lucho Catalan ED Physician Francis Mcintyre HPI: 01/17 18:40 This 67 yrs old Female presents to ER via Wheelchair with complaints of cp Shortness Of Breath. 18:40 The patient has shortness of breath at rest, while talking. Onset: The symptoms/episode cp began/occurred 2 day(s) ago. Duration: The symptoms are continuous, and are steadily getting worse. Associated signs and symptoms: Pertinent positives: chest pain, non-productive cough, Pertinent negatives: diaphoresis, fever, hemoptysis, vomiting. Severity of symptoms: in the emergency department the symptoms are unchanged despite home interventions. The patient has experienced similar episodes in the past, multiple times. Historical: - Allergies: 18:39 Amitriptyline; bp 18:39 Cipro; bp 18:39 Morphine (rash, Itching); bp 18:39 Phenobarbital; bp - Home Meds: 18:39 amlodipine 5 mg tab 1 tab once daily [Active]; aspirin 81 mg Oral chew 1 tab once daily bp [Active]; Cheratussin AC 10-100 mg/5 mL Oral liqd 10 mL every 4 hours [Active]; clonazepam 1 mg Oral tab 1 tab once daily [Active]; gabapentin 400 mg Oral cap 1 cap 3 times per day [Active]; furosemide 20 mg Oral tab 1 tab once daily [Active]; nystatin 100,000 unit/gram Topical crea 3 times per day [Active]; sertraline 50 mg Oral tab 3 tabs once daily [Active]; Ventolin Rotahaler/Rotacaps Inhl four times a day [Active]; prednisone 20 mg Oral tab 1 tab 2 times per day [Active]; oxycodone-acetaminophen 10-325 mg Oral tab 1 tab every 6 hours for Pain [Active]; Nexium 40 mg Oral cpDR 1 cap once daily [Active]; metoprolol tartrate 50 mg Oral tab 1 tab once daily [Active]; lisinopril 40 mg Oral tab 1 tab twice a day [Active]; - PMHx: 18:39 ADD/ADHD; Anxiety; Asthma; Atrial Fib; CANCER, SKIN; COPD; CHF; Degenerative disc bp disease; Hernia; Hypertension; - Immunization history:: Adult Immunizations up to date. - Social history:: Smoking status: Patient/guardian denies using tobacco. - Ebola Screening: : Patient negative for fever greater than or equal to 101.5 degrees Fahrenheit, and additional compatible Ebola Virus Disease symptoms Patient denies exposure to infectious person Patient denies travel to an Ebola-affected area in the 21 days before illness onset No symptoms or risks identified at this time. ROS: 18:45 Constitutional: Negative for body aches, chills, fever, poor PO intake. cp 18:45 Eyes: Negative for injury, pain, redness, and discharge. cp 18:45 ENT: Negative for drainage from ear(s), ear pain, sore throat, difficulty swallowing, difficulty handling secretions. 18:45 Cardiovascular: Positive for chest pain. 18:45 Respiratory: Positive for cough, shortness of breath. 18:45 Abdomen/GI: Negative for vomiting, diarrhea, constipation, black/tarry stool, rectal bleeding. 18:45 : Negative for urinary symptoms. 18:45 Skin: Negative for cellulitis, rash. 18:45 Neuro: Negative for altered mental status, headache, syncope, near syncope, weakness. 18:45 All other systems are negative. Exam: 18:35 ECG was reviewed by the Attending Physician. cp 18:48 Head/Face: Normocephalic, atraumatic. Eyes: Pupils equal round and reactive to light, cp extra-ocular motions intact. Lids and lashes normal. Conjunctiva and sclera are non-icteric and not injected. Cornea within normal limits. Periorbital areas with no swelling, redness, or edema. ENT: Nares patent. No nasal discharge, no septal abnormalities noted. Tympanic membranes are normal and external auditory canals are clear. Oropharynx with no redness, swelling, or masses, exudates, or evidence of obstruction, uvula midline. Mucous membranes moist. Neck: Trachea midline, no thyromegaly or masses palpated, and no cervical lymphadenopathy. Supple, full range of motion without nuchal rigidity, or vertebral point tenderness. No Meningismus. Chest/axilla: Normal chest wall appearance and motion. Nontender with no deformity. No lesions are appreciated. 18:48 Constitutional: The patient appears alert, awake, non-diaphoretic, non-toxic, well developed, well nourished, in obvious distress, mildly distressed, morbid obesity 18:48 Cardiovascular: Rate: tachycardic, Rhythm: regular, Edema: mild bilateral lower legs, cp JVD: is not appreciated. 18:48 Respiratory: mild respiratory distress is noted, Respirations: labored breathing, that is mild, tachypnea, that is mild, Breath sounds: decreased breath sounds, that are mild, throughout, stridor, is not appreciated, wheezing: is not appreciated. 18:48 Abdomen/GI: Inspection: obese Palpation: abdomen is soft and non-tender, in all quadrants. 18:48 Back: pain, is absent, ROM is normal. 18:48 Skin: cellulitis, is not appreciated, no rash present. 18:48 Neuro: Orientation: to person, place \T\ time. Mentation: lucid, able to follow commands, Cerebellar function: is grossly normal, Motor: moves all fours, strength is normal, Sensation: is normal. Vital Signs: 18:39 BP 137 / 102; Pulse 106; Resp 32; Temp 97.5; Pulse Ox 97% on 2 lpm NC; Weight 163.29 bp kg; Height 5 ft. 3 in. (160.02 cm); 20:19 BP 165 / 87; Pulse 87; Resp 24; Pulse Ox 97% on 2 lpm NC; ak1 20:57 BP 166 / 80; Pulse 102; Resp 24; Temp 98; Pulse Ox 96% on 2 lpm NC; Pain 5/10; ak1 18:39 Body Mass Index 63.77 (163.29 kg, 160.02 cm) bp MDM: 18:44 Patient medically screened. cp 19:00 Differential diagnosis: asthma, Bronchitis CHF exacerbation, Chronic Obstructive cp Pulmonary Disease pneumonia, pulmonary edema, Pulmonary Embolism Sepsis. 20:05 Data reviewed: vital signs, nurses notes, lab test result(s), EKG, radiologic studies, cp plain films, and as a result, I will admit patient. 20:05 Test interpretation: by ED physician or midlevel provider: ECG, plain radiologic cp studies. Counseling: I had a detailed discussion with the patient and/or guardian regarding: the historical points, exam findings, and any diagnostic results supporting the discharge/admit diagnosis, lab results, radiology results. 20:35 Physician consultation: Danielle Marley MD was contacted at 20:30, regarding admission, cp to the telemetry unit. patient's condition. 01/17 18:31 Order name: Basic Metabolic Panel; Complete Time: 19:42 cp 01/17 20:00 Interpretation: Normal except: GLUC 115; GFR 72. 01/17 18:31 Order name: CBC with Diff; Complete Time: 19:42 cp 01/17 20:00 Interpretation: Normal except: MPV 7.5. cp 01/17 18:31 Order name: LFT's; Complete Time: 19:42 cp 01/17 18:31 Order name: Magnesium; Complete Time: 19:42 cp 01/17 18:31 Order name: NT PRO-BNP; Complete Time: 19:42 cp 01/17 18:31 Order name: PT-INR; Complete Time: 19:42 01/17 18:31 Order name: Troponin (emerg Dept Use Only); Complete Time: 19:42 cp 01/17 20:45 Order name: Comprehensive Metabolic Panel [facility] 01/17 20:45 Order name: Comprehensive Metabolic Panel [facility] 01/17 20:45 Order name: Magnesium [facility] 01/17 20:45 Order name: Magnesium [facility] 01/17 20:45 Order name: Phosphorus [facility] 01/17 20:46 Order name: Troponin I [facility] 01/17 20:51 Order name: ABG Arterial Blood Gas [facility] 01/17 18:31 Order name: XRAY Chest (1 view); Complete Time: 20:00 01/17 18:31 Order name: EKG; Complete Time: 18:32 01/17 18:31 Order name: Cardiac monitoring; Complete Time: 19:36 01/17 18:31 Order name: EKG - Nurse/Tech; Complete Time: 19:22 cp 01/17 18:31 Order name: IV Saline Lock; Complete Time: 19:22 01/17 18:31 Order name: Labs collected and sent; Complete Time: 19:23 cp 01/17 18:31 Order name: O2 Per Protocol; Complete Time: 19:23 01/17 18:31 Order name: O2 Sat Monitoring; Complete Time: 19:23 01/17 20:51 Order name: ABG Arterial Blood Gas EDMS EC:35 Rate is 89 beats/min. Rhythm is regular. WA interval is normal. QRS interval is normal. cp QT interval is normal. Interpreted by me. Reviewed by me. Administered Medications: 19:35 Drug: Albuterol - atroVENT (3:1) (2.5 mg - 0.5 mg) 3 ml Route: Nebulizer; ak1 19:46 Follow up: Response: No adverse reaction ak1 19:35 Drug: Aspirin Chewable Tablet 324 mg Route: PO; ak1 19:46 Follow up: Response: No adverse reaction ak1 19:36 Drug: Zofran 4 mg Route: IVP; Site: right forearm; ak1 19:46 Follow up: Response: No adverse reaction ak1 19:55 Drug: Lasix 20 mg Route: IVP; Site: right forearm; jd3 20:47 Follow up: Response: No adverse reaction ak1 20:55 Drug: Nitroglycerin 0.4 mg Route: Sublingual; ak1 21:14 Follow up: Response: No adverse reaction ak1 20:55 Drug: fentaNYL (PF) 25 mcg Route: IVP; Site: right forearm; ak1 21:14 Follow up: Response: No adverse reaction ak1 Disposition: 01/17/18 20:48 Hospitalization ordered by Danielle Marley for Observation. Preliminary diagnosis are Chest pain, unspecified, Unspecified combined systolic (congestive) and diastolic (congestive) heart failure. - Bed requested for Telemetry/MedSurg (observation). - Status is Observation. ak1 - Condition is Stable. - Problem is new. - Symptoms have improved. UTI on Admission? No Addendum: 01/23/2018 07:46 Co-signature as Attending Physician, Francis Mcintyre MD. r n Signatures: Dispatcher [employer] EDOR Francis Mcintyre MD MD rn Krenek, Amber RN RN ak1 You Jorge PA PA cp Charlie Scruggs RN RN jd3 Peltier, Brian RN RN bp Corrections: (The following items were deleted from the chart) 01/17 21:03 20:48 Hospitalization Ordered by Danielle Marley MD for Observation. Preliminary cp diagnosis is Chest pain, unspecified; Unspecified combined systolic (congestive) and diastolic (congestive) heart failure. Bed requested for Telemetry/MedSurg (observation). Status is Observation. Condition is Stable. Problem is new. Symptoms have improved. UTI on Admission? No. cp 21:51 21:03 01/17/2018 20:48 Hospitalization Ordered by Danielle aMrley MD for Observation. ak1 Preliminary diagnosis is Chest pain, unspecified; Unspecified combined systolic (congestive) and diastolic (congestive) heart failure. Bed requested for Telemetry/MedSurg (observation). Status is Observation. Condition is Stable. Problem is new. Symptoms have improved. UTI on Admission? No. cp
[2018-01-17] MEDS ORDERED: ALBUTEROL 2.5 MG/3 ML NEB SOL NEB PRN (20:50)
[2018-01-17] MEDS ORDERED: FENTANYL CITR 100 MCG/2 ML ONE (20:57)
[2018-01-17] MEDS ORDERED: NITROGLYCERIN 0.4 MG/TAB SL ONE (20:58)
[2018-01-17] MEDS ORDERED: APIXABAN 2.5 MG TABLET PO SCH (21:00)
[2018-01-17] MEDS: GABAPENTIN 400 MG CAP PO SCH (22:52)
[2018-01-17] MEDS: clonazePAM 1 MG TAB PO PRN (22:53)
[2018-01-17] MEDS: NA CHLORIDE 0.9% 1,000 ML IV SCH (22:59)
[2018-01-17] MEDS: ONDANSETRON 4 MG/2 ML VIAL IV PRN (23:05)
[2018-01-18 01:12] LABS: Urine Appearance CLOUDY; Urine Bilirubin NEGATIVE (NEG); Urine Blood 1+ (NEG); Urine Color YELLOW; Urine Glucose NEGATIVE (NEG); Urine Protein NEGATIVE (NEG); Urine Urobilinogen 0.2 mg/dL (0.2-1.0)
[2018-01-18 01:14] LABS: Urine Microscopic Reflex ORDER UMIC
[2018-01-18] MEDS: IPRATROPIUM BROM 0.5MG/2.5ML NEB SCH ×3 (01:17→22:00)
[2018-01-18] MEDS: Oxycodone HCl/Acetaminophen 1 TAB TAB PO PRN ×5 (01:47→18:00)
[2018-01-18 02:18] LABS: Urine Bacteria LOADED /HPF (<20); Urine Culture Reflex Order REFLEXED; Urine RBC <5 /HPF (NONE SEEN)
[2018-01-18 05:35] LABS: Arterial Blood Carboxyhemoglob 1.4 % (0-1.5); Blood Gas Oxyhemoglobin 95.5 % (94-97); Blood O2 Saturation 97.3 % (92-98.5)
[2018-01-18] MEDS: PANTOPRAZOLE 40MG TABLET PO SCH (05:49)
[2018-01-18] MEDS: METHYLPREDNISOLONE 125 MG INJ IV SCH ×4 (06:35→23:03)
[2018-01-18 06:38] LABS: Absolute Lymphocytes (CBC) 2.3 K/uL (0.7-4.9); Absolute Neutrophil 6.3 K/uL (1.8-8.0); Basophils % 0.6 % (0-1.3); Eosinophils % 1.7 % (0-4.4); Hematocrit 38.5 % (36.0-45.0); Lymphocytes % 23.7 % (15.3-44.8); MCH 29.1 pg (27.0-35.0); MCV 87.5 fL (80-100); MPV 7.7 fL (7.6-11.3); Monocytes % 9.9 % (3.3-12.3)
[2018-01-18 06:43] LABS: Albumin 3.3 g/dL (3.4-5.0); Bilirubin Total 0.3 mg/dL (0.2-1.0); Magnesium 2.1 mg/dL (1.8-2.4); Phosphorus 4.1 mg/dL (2.5-4.9); Potassium 3.8 mmol/L (3.5-5.1); Protein, Total 6.5 g/dL (6.4-8.2); Thyroid Stimulating Hormone 2.28 uIU/mL (0.360-3.740)
[2018-01-18] MEDS ORDERED: POTASSIUM 25 MEQ EFFERV TAB PO ONE (07:55)
[2018-01-18] MEDS: ARFORMOTEROL TARTRATE 15 MCG/2 ML VIAL.NEB NEB SCH ×2 (08:34→19:26)
[2018-01-18] MEDS ORDERED: ENOXAPARIN 40 MG/0.4 ML SQ SCH (09:00)
[2018-01-18] MEDS ORDERED: FUROSEMIDE 40 MG TABLET PO SCH (09:00)
[2018-01-18] MEDS: AMLODIPINE 5 MG TAB PO SCH (10:02)
[2018-01-18] MEDS: SERTRALINE HCL 100 MG TAB PO SCH (10:02)
[2018-01-18] MEDS: GABAPENTIN 400 MG CAP PO SCH ×2 (10:02→20:49)
[2018-01-18] MEDS: ASPIRIN 81 MG CHEWABLE TABLET PO SCH (10:02)
[2018-01-18] MEDS: ENOXAPARIN 40 MG/0.4 ML SQ SCH (10:03)
[2018-01-18] MEDS: METOPROLOL TAR 50 MG TAB PO SCH (10:07)
[2018-01-18] MEDS: PROCHLORPERAZINE 5 MG TAB PO PRN ×2 (11:47→21:05)
[2018-01-18] MEDS: levoFLOXacin 750 MG TAB PO SCH (11:48)
[2018-01-18] MEDS: clonazePAM 1 MG TAB PO PRN (12:24)
--- NOTE | 2018-01-18 12:27 | EKG ---
Test Date: 2018-01-17 Test Time: 18:30:30 Cw Operator: ALEXIS MEASUREMENT RESULTS: Intervals: Rate: 89 NM: 184 QRSD: 80 QT: 378 QTc: 459 [place]: P: 87 NM: 184 QRS: 10 T: 70 INTERPRETIVE STATEMENTS: Normal sinus rhythm Possible Anterior infarct, age undetermined Abnormal ECG Compared to ECG 11/12/2017 13:32:41 Myocardial infarct finding now present Electronically Signed On 01-18-18 12:25:43 CDT by Pollo Pinto
--- NOTE | 2018-01-18 15:27 | PN ---
History: The patient currently lying in bed. She looks comfortable, except seem to be short of maria g th. She is unable to go to the bathroom. She had burning when she urinated earlier. UA was positiv e. She was not started on IV antibiotic yet. She had nausea earlier and she received Zofran. Review of Systems: Otherwise negative. Physical Examination: Vital Signs: Blood pressure is 129/59, respiratory rate 20, pulse 71, temperature 97.4, the patient is saturating 96% on 2 L nasal cannula. General: The patient is alert, oriented x3. Does not look in any distress. HEENT: Atraumatic, normocephalic. PERRLA. Oral mucosa is moist. Neck: Supple. No JVD. No carotid bruits. Chest: Clear to auscultation with expiratory wheezing. Heart: Regular rate and rhythm. S1, S2 normal. No gallop or murmur. Abdomen: Soft, nontender. No masses. No hepatosplenomegaly. Positive bowel sounds. Extremities: No clubbing, cyanosis, or edema. Neurologic: Grossly intact. Laboratory Data: Today showed CBC within normal. Chemistry within normal. GFR of 62. BNP of 935. Troponin is 3.3, TSH 2.28. UA was positive. Urine culture is pending. Assessment And Plan: 1.Chronic obstructive pulmonary disease exacerbation versus congestive heart failure. Elevated B-ty pe natriuretic peptide. I will continue patient on steroid and nebulizer. I will check echocardiogr am, and I will continue the patient on Lasix 40, but I will switch it to IV. 2.Chest pain, resolved. We will check cardiac enzymes. 3.?Urinary tract infection. The patient will be started on Levaquin to cover chronic obstructive pu lmonary disease exacerbation as well as a possible urinary tract infection. 4.Nausea. She will be on Zofran and Compazine. 5.Depression. She will continue on Zoloft. 6.Deep vein thrombosis prophylaxis, on Lovenox. 7.Hypothyroidism. The patient will need physical therapy with PT/OT. MT/MODL Voice ID: [id number] Report ID: [id number]
[2018-01-18] MEDS: FUROSEMIDE 40 MG/4 ML VIAL IV SCH (17:09)
[2018-01-18] MEDS: ONDANSETRON 4 MG/2 ML VIAL IV PRN (17:10)
--- NOTE | 2018-01-18 18:41 | P.HP ---
Certification for Inpatient Patient admitted to: Inpatient With expected LOS: >2 Midnights Patient will require the following post-hospital care: None Practitioner: I am a practitioner with admitting privileges, knowledge of patient current condition, hospital course, and medical plan of care. Services: Services provided to patient in accordance with Admission requirements found in Title 42 Section 412.3 of the Code of Federal Regulations Patient History Date of Service: 01/17/18 Reason for admission: COPD exacerbation History of Present Illness: Patient is a 67-year-old female who came to the hospital with difficulty breathing. Patient was recently discharged from rehabilitation. Patient was found to have a resistant infection and was discharged home with weeks of antibiotics. She is not really sure exactly what this was but medication was called in for her. Patient had been doing well and has been ambulating. She has had workup being done around the house. Suddenly she started getting short of breath and coughing over the last 24 hr. Her symptoms gradually worsened and she came into the emergency room for further evaluation. This which worsened has a longstanding history of respiratory problems. She had asthma and then she smoked and has developed COPD. She also had morbid obesity-her body mass index is 62.8. She has obesity hypoventilation syndrome. She does not use her CPAP regularly. Blood gases were not done on arrival. However, we will go ahead and admit her to the hospital for further evaluation. Allergies amitriptyline HCl [From Elavil] Allergy (Intermediate, Verified 01/17/18 23:57) Nausea/Vomiting ciprofloxacin [From Cipro] Allergy (Intermediate, Verified 01/17/18 23:57) Rash metronidazole Allergy (Verified 01/17/18 23:57) Itching morphine Allergy (Verified 01/17/18 23:57) Itching phenobarbital Allergy (Verified 01/17/18 23:57) Itching/Hives/Rash Home Medications: Albuterol Inhaler [Ventolin Inhaler*] 2 puff IH QIDP PRN 11/12/17 Amlodipine [Norvasc*] 5 mg PO DAILY 11/12/17 Aspirin 81 mg PO DAILY 11/12/17 Esomeprazole Mag Trihydrate [Nexium] 1 cap PO DAILY 11/12/17 Furosemide [Lasix*] 40 mg PO DAILY 11/12/17 Gabapentin [Neurontin*] 400 mg PO BID 11/12/17 Metoprolol Tartrate [Lopressor*] 50 mg PO DAILY 11/12/17 Oxycodone HCl/Acetaminophen [Endocet 10-325 mg Tablet] 1 each PO Q4H PRN Sertraline [Zoloft*] 100 mg PO DAILY 11/12/17 hydrOXYzine pamoate [Hydroxyzine Pamoate] 1 tab PO BID PRN 11/13/17 Promethazine HCl 25 mg PO BIDP PRN 12/15/17 clonazePAM [Klonopin*] 1 mg PO BID PRN #50 tab 12/23/17 Budesonide/Formoterol Fumarate [Symbicort 160-4.5 Mcg Inhaler] 2 puff IH BID Lisinopril 40 mg PO BID 01/17/18 - Past Medical/Surgical History Has patient received pneumonia vaccine in the past: Yes Diabetic: No -: HTN -: COPD -: CHF, diastolic dysfunction -: GERD -: Morbid obesity -: Anxiety -: DDD, DJD lumbar spine, chronic pain -: Melanoma removed from back -: History of Liver tumor -: Chronic back pain-Pain management-Dr. Herron -: Depression with anxiety -: Hernia -: Left ovarian tumor removal -: Hysterectomy -: Hernia Repair Psychosocial/ Personal History: , Disabled, 5 children - Family History Father Medical History: Heart disease, Hypertension, Diabetes, Cancer, Liver disease Mother Medical History: Heart disease, Hypertension, Diabetes, Cancer Sister Medical History: Heart disease, Hypertension, Diabetes Brother Medical History: Hypertension - Social History Smoking Status: Former smoker Alcohol use: No CD- Drugs: No Caffeine use: Yes Place of Residence: Home Review of Systems 10-point ROS is otherwise unremarkable Physical Examination - Vital Signs Temperature: 98.3 F Blood Pressure: 157/75 Pulse: 84 Respirations: 20 Pulse Ox (%): 92 - Physical Exam General: Alert, In no apparent distress, Oriented x3 HEENT: Atraumatic, PERRLA, Mucous membr. moist/pink, EOMI, Sclerae nonicteric Neck: Supple, 2+ carotid pulse no bruit, No LAD, Without JVD or thyroid abnormality Respiratory: Expiratory wheezes Cardiovascular: Regular rate/rhythm, Normal S1 S2 Gastrointestinal: Normal bowel sounds, Soft and benign, Non-distended, No tenderness Musculoskeletal: No clubbing, No swelling, No tenderness Integumentary: No rashes Neurological: Normal speech, Normal tone, Sensation intact, Cranial nerves 3-12 intact, Normal affect, Abnormal strength Lymphatics: No axilla or inguinal lymphadenopathy - Studies Laboratory Data (last 24 hrs) 01/17/18 19:00: PT 12.9 H, INR 1.09 01/17/18 19:00: WBC 10.2, Hgb 13.0, Hct 40.4, Plt Count 306 01/17/18 19:00: Sodium 142, Potassium 4.3, BUN 8, Creatinine 0.80, Glucose 115 H , Magnesium 1.8, Total Bilirubin 0.3, AST 22, ALT 16, Alkaline Phosphatase 83 Assessment & Plan - Problems (Diagnosis) (1) COPD with acute exacerbation Current Visit: Yes Status: Acute (2) Colitis Onset Date: 03/27/16 Current Visit: No Status: Acute (3) Chronic use of steroids Current Visit: No Status: Chronic (4) Depression with anxiety Onset Date: 11/13/17 Current Visit: No Status: Chronic (5) Hypertension Onset Date: 03/27/16 Current Visit: No Status: Chronic Qualifiers: (6) Morbid obesity Onset Date: 03/26/17 Current Visit: No Status: Chronic (7) Obstructive sleep apnea Onset Date: 11/13/17 Current Visit: No Status: Suspected - Plan -nebs, steroids, and antibiotics -O2 per protocol. -repeat CXR and check ABGs -outpatient pulmonary function testing/and sleep study -pulmonary consultation if symptoms worsen -monitor for any signs of fever and resistant infection Discharge Plan: Home Plan to discharge in: Greater than 2 days - Advance Directives Does patient have a Living Will: No Does patient have a Durable POA for Healthcare: No - Code Status/Comfort Care Code Status Assessed: Yes Code Status: Full Code Critical Care: No Time Spent Managing PTS Care (In Minutes): 50
[2018-01-18] MEDS ORDERED: METHYLPREDNISOLONE 125 MG INJ IV SCH (20:00)
[2018-01-18] MEDS ORDERED: ALBUTEROL 2.5 MG/3 ML NEB SOL NEB SCH (22:00)
[2018-01-18] MEDS: hydrOXYzine HCl 25 MG TAB PO PRN (22:23)
[2018-01-18] MEDS: FENTANYL CITR 100 MCG/2 ML IV PRN (23:03)
[2018-01-19] MEDS: clonazePAM 1 MG TAB PO PRN ×2 (00:35→13:13)
[2018-01-19] MEDS: IPRATROPIUM BROM 0.5MG/2.5ML NEB SCH ×4 (01:17→19:10)
[2018-01-19] MEDS: Oxycodone HCl/Acetaminophen 1 TAB TAB PO PRN ×4 (03:03→20:08)
[2018-01-19] MEDS: METHYLPREDNISOLONE 125 MG INJ IV SCH ×3 (05:08→17:21)
[2018-01-19] MEDS: NA CHLORIDE 0.9% 1,000 ML IV SCH (05:09)
[2018-01-19 06:43] LABS: Hematocrit 39.4 % (36.0-45.0); MCH 28.5 pg (27.0-35.0); MCV 87.3 fL (80-100); MPV 7.6 fL (7.6-11.3); RBC Red Blood Cell Count 4.51 M/uL (3.86-4.86)
[2018-01-19 07:13] LABS: Bilirubin Total 0.2 mg/dL (0.2-1.0); Potassium 4.3 mmol/L (3.5-5.1); Protein, Total 6.7 g/dL (6.4-8.2)
[2018-01-19] MEDS: ARFORMOTEROL TARTRATE 15 MCG/2 ML VIAL.NEB NEB SCH ×2 (07:35→19:10)
[2018-01-19] MEDS: PANTOPRAZOLE 40MG TABLET PO SCH (07:39)
[2018-01-19] MEDS: ENOXAPARIN 40 MG/0.4 ML SQ SCH (09:31)
[2018-01-19] MEDS: AMLODIPINE 5 MG TAB PO SCH (09:31)
[2018-01-19] MEDS: METOPROLOL TAR 50 MG TAB PO SCH (09:31)
[2018-01-19] MEDS: FUROSEMIDE 40 MG/4 ML VIAL IV SCH ×2 (09:31→17:21)
[2018-01-19] MEDS: ASPIRIN 81 MG CHEWABLE TABLET PO SCH (09:31)
[2018-01-19] MEDS: SERTRALINE HCL 100 MG TAB PO SCH (09:31)
[2018-01-19] MEDS: GABAPENTIN 400 MG CAP PO SCH ×2 (09:31→20:08)
[2018-01-19] MEDS: levoFLOXacin 750 MG TAB PO SCH (09:31)
[2018-01-19] MEDS ORDERED: HYDRALAZINE HCL 20 MG/ML VIAL IV PRN (10:05)
--- NOTE | 2018-01-19 14:55 | PN ---
Subjective: Currently, the patient lying in bed. She looks comfortable. She continued to have shor tness of breath. She has no chest pain. No abdominal pain. Her dysuria improved, but she had a Fol ey catheter now. She thought that she had subjective fever earlier. No cough, no sputum. Her echoc ardiogram is not done yet. Subjective: Vital signs: Currently; blood pressure is 166/74, respiratory rate 16, pulse 77, temper ature 98.1, temperature max 98.3. General: The patient is alert and oriented x3. Does not look in any distress. HEENT: Atraumatic, normocephalic. PERRLA. Oral mucosa is moist. Neck: Supple. No JVD. Chest: Clear to auscultation with basilar crackles. There is no expiratory wheezing. Heart: Regular rate and rhythm. S1, S2 normal. No gallop. Abdomen: Soft, nontender. No masses. Obese. Positive bowel sounds. Extremities: No clubbing, no cyanosis. +1 edema, with lymphedema. There is no calf tenderness. Neurologic: Grossly intact. Cranial nerve exam 2 through 12 intact. Normal sensation. Normal refl exes. Normal muscle strength. Laboratory Data: Labs today showed CBC within normal. Chemistry within normal. Glucose around 280. BMP is still at 1000. TSH of 2.2. Free T4 of 1.28. Assessment And Plan: 1.Chronic obstructive pulmonary disease exacerbation versus congestive heart failure exacerbation. The patient continued to have some dyspnea. She is on Lasix, steroid, and nebulizer. BNP slightly e levated. Echocardiogram ordered yesterday, but still pending. I will continue with Lasix 40 and I w ill switch it to twice a day instead once. 2.Chest pain, resolved. Cardiac enzymes all negative. Chest x-ray can be done as outpatient or can be done as an outpatient if echocardiogram will show any signs of ischemia or hypokinesis. 3.Urinary tract infection. Microbiology culture still pending, but UA was positive. The patient is on Levaquin 750 mg once a day. 4.Nausea, improved with Zofran. 5.Chest x-ray in the morning repeat. 6.Hypothyroidism. Continue on Synthroid. TSH is normal. 7.Deep veinous thrombosis prophylaxis, on Lovenox. 8.Depression. Continue on Zoloft. 9.PT/OT for discharge plan when the patient is ready to be discharged, if her shortness of breath im proved overnight. GIACOMO/LUIS MIGUEL Voice ID: [id number] Report ID: [id number]
[2018-01-19] MEDS: hydrOXYzine HCl 25 MG TAB PO PRN (22:54)
[2018-01-20] MEDS: METHYLPREDNISOLONE 125 MG INJ IV SCH ×5 (00:12→23:51)
[2018-01-20] MEDS: FENTANYL CITR 100 MCG/2 ML IV PRN ×2 (01:06→23:52)
[2018-01-20] MEDS: PANTOPRAZOLE 40MG TABLET PO SCH (05:31)
[2018-01-20] MEDS: Oxycodone HCl/Acetaminophen 1 TAB TAB PO PRN ×4 (05:33→19:24)
[2018-01-20] MEDS: ENOXAPARIN 40 MG/0.4 ML SQ SCH (08:57)
[2018-01-20] MEDS: ASPIRIN 81 MG CHEWABLE TABLET PO SCH (08:57)
[2018-01-20] MEDS: FUROSEMIDE 40 MG/4 ML VIAL IV SCH ×2 (08:57→17:38)
[2018-01-20] MEDS: GABAPENTIN 400 MG CAP PO SCH ×2 (08:58→22:22)
[2018-01-20] MEDS: SERTRALINE HCL 100 MG TAB PO SCH (08:58)
[2018-01-20] MEDS: AMLODIPINE 10 MG TAB PO SCH (08:59)
[2018-01-20] MEDS: IPRATROPIUM BROM 0.5MG/2.5ML NEB SCH ×4 (09:00→19:49)
[2018-01-20] MEDS: ARFORMOTEROL TARTRATE 15 MCG/2 ML VIAL.NEB NEB SCH ×2 (09:00→19:46)
[2018-01-20] MEDS ORDERED: Levofloxacin 750mg IV 750 MG/150 ML BAG IV SCH (09:00)
[2018-01-20] MEDS: METOPROLOL TAR 50 MG TAB PO SCH (09:01)
--- NOTE | 2018-01-20 09:26 | RAD REPORT ---
EXAM DESCRIPTION: RAD - Chest Pa And Lat (2 Views) - 01/20/2018 8:25 am CLINICAL HISTORY: chf Chest pain. COMPARISON: Chest Single View dated 01/17/2018; Chest Single View dated 11/14/2017; Chest Single View dated 11/13/2017; Chest Single View dated 11/12/2017 FINDINGS: The lungs are clear. Heart is moderately enlarged in size. No displaced fractures. IMPRESSION: Moderate cardiomegaly.
[2018-01-20] MEDS ORDERED: levoFLOXacin 750 MG TAB PO SCH (10:00)
--- NOTE | 2018-01-20 11:38 | P.PN ---
Subjective Date of Service: 01/20/18 Chief Complaint: COPD exacerbation Patient seen and examined at bedside. No family at bedside. Case discussed with nursing staff. Patient resting in bed on nasal cannula, no acute distress. Reports improved shortness of breath and states that chest pain has resolved. States that she was worried about her but bladder/urine when she came in. Reports abdominal fullness though denies any increased urination or foul- smelling urine. Patient does have a Song in place as she was having trouble getting up and going to the bathroom. Review of Systems As noted above Physical Examination - Vital Signs Temperature: 97.8 F Blood Pressure: 184/81 Pulse: 75 Respirations: 20 Pulse Ox (%): 94 - Physical Exam General: Alert, In no apparent distress, Oriented x3 HEENT: Atraumatic, PERRLA, EOMI Neck: Supple, JVD not distended Respiratory: Clear to auscultation bilaterally, Normal air movement Cardiovascular: Regular rate/rhythm, Normal S1 S2 Gastrointestinal: Normal bowel sounds, No tenderness Musculoskeletal: No tenderness Integumentary: No rashes Neurological: Normal speech, Normal tone, Normal affect Assessment And Plan - Current Problems (Diagnosis) (1) UTI (urinary tract infection) Onset Date: 10/06/15 Current Visit: No Status: Acute Plan: Patient with a history of recurrent UTIs. Discharged about a month ago on oral Levaquin for UTI and oral Flagyl for C. diff. 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 She returns with a possible urinary tract infection, ESBL resistant to Levaquin. Patient also has a Song catheter in as she was not able to walk to the bathroom. Will go ahead and discontinue Song catheter, recent the catheterized urine sample. Discontinue Levaquin and switched to IV Zosyn. Will follow up with cultures and make antibiotic adjustments as needed. Qualifiers: Urinary tract infection type: acute cystitis Hematuria presence: without hematuria Qualified Code(s): N30.00 - Acute cystitis without hematuria (2) COPD with acute exacerbation Current Visit: Yes Status: Acute Plan: Patient at baseline with breathing, on oxygen via nasal cannula. Repeat chest x -ray with no acute abnormalities. Will continue steroids and breathing treatments. Dyspnea resolved and now at baseline, will continue to monitor (3) Acute on chronic diastolic CHF (congestive heart failure) Onset Date: 07/26/17 Current Visit: No Status: Acute Plan: Patient currently being diuresed with IV Lasix, twice a day. Will continue IV diuresis. Echo pending (4) Depression with anxiety Onset Date: 11/13/17 Current Visit: No Status: Chronic Plan: Continue home Zoloft. Stable at this time. (5) Chest pain Onset Date: 02/20/16 Current Visit: No Status: Acute Plan: Resolved Qualifiers: Chest pain type: unspecified Qualified Code(s): R07.9 - Chest pain, unspecified (6) Hypertension Onset Date: 03/27/16 Current Visit: No Status: Chronic Plan: Continue home medications. Hydralazine p.r.n. ordered Qualifiers:
[2018-01-20] MEDS ORDERED: PIPER/TAZO/NS 3.375gm 3.375 GM/100 ML BAG IVPB SCH (12:00)
[2018-01-20] MEDS: hydrOXYzine HCl 25 MG TAB PO PRN ×2 (12:33→23:52)
[2018-01-20] MEDS: clonazePAM 1 MG TAB PO PRN (12:33)
[2018-01-20] MEDS: Meropenem 1,000 MG in NA CHLORIDE 0.9% 100 ML IV SCH ×3 (13:49→23:52)
[2018-01-20] MEDS: NA CHLORIDE 0.9% 1,000 ML IV SCH (14:26)
[2018-01-21] MEDS: IPRATROPIUM BROM 0.5MG/2.5ML NEB SCH ×4 (01:46→20:00)
[2018-01-21] MEDS: PANTOPRAZOLE 40MG TABLET PO SCH (05:51)
[2018-01-21] MEDS: METHYLPREDNISOLONE 125 MG INJ IV SCH ×4 (05:51→23:06)
[2018-01-21] MEDS: Oxycodone HCl/Acetaminophen 1 TAB TAB PO PRN ×5 (05:51→23:05)
[2018-01-21] MEDS: ARFORMOTEROL TARTRATE 15 MCG/2 ML VIAL.NEB NEB SCH ×2 (08:46→20:00)
[2018-01-21] MEDS: FUROSEMIDE 40 MG/4 ML VIAL IV SCH (09:00)
[2018-01-21] MEDS: Meropenem 1,000 MG in NA CHLORIDE 0.9% 100 ML IV SCH ×2 (09:17→17:32)
[2018-01-21] MEDS: ASPIRIN 81 MG CHEWABLE TABLET PO SCH (09:18)
[2018-01-21] MEDS: AMLODIPINE 10 MG TAB PO SCH (09:18)
[2018-01-21] MEDS: METOPROLOL TAR 50 MG TAB PO SCH (09:18)
[2018-01-21] MEDS: SERTRALINE HCL 100 MG TAB PO SCH (09:18)
[2018-01-21] MEDS: GABAPENTIN 400 MG CAP PO SCH ×2 (09:18→21:20)
[2018-01-21] MEDS: ENOXAPARIN 40 MG/0.4 ML SQ SCH (09:20)
[2018-01-21] MEDS: clonazePAM 1 MG TAB PO PRN (09:50)
[2018-01-21 12:09] LABS: Absolute Lymphocytes (CBC) 0.8 K/uL (0.7-4.9); Absolute Monocytes 0.4 K/uL (0.1-1.3); Absolute Neutrophil 8.5 K/uL (1.8-8.0); Basophils % 0.3 % (0-1.3); Eosinophils % 0.3 % (0-4.4); Hematocrit 37.9 % (36.0-45.0); Lymphocytes % 7.8 % (15.3-44.8); MCH 28.3 pg (27.0-35.0); MCV 86.6 fL (80-100); MPV 8.7 fL (7.6-11.3); Monocytes % 4.1 % (3.3-12.3); RBC Red Blood Cell Count 4.38 M/uL (3.86-4.86)
[2018-01-21 12:19] LABS: Albumin 2.8 g/dL (3.4-5.0); Bilirubin Total 0.2 mg/dL (0.2-1.0); Potassium 4.4 mmol/L (3.5-5.1); Protein, Total 6.2 g/dL (6.4-8.2)
[2018-01-21 13:32] LABS: Blood Morphology Comment NOT SEEN (NOT SEEN); Platelet Estimate ADEQ; Urine White Blood Cell Casts OK
[2018-01-21] MEDS: FUROSEMIDE 40 MG TABLET PO SCH (17:30)
--- NOTE | 2018-01-21 18:42 | P.PN ---
Subjective Date of Service: 01/21/18 Chief Complaint: COPD exacerbation Patient seen and examined at bedside. No family at bedside. Case discussed with nursing staff. Patient resting in bed on nasal cannula, no acute distress. Reports improved shortness of breath and states that chest pain has resolved. States that she was worried about her but bladder/urine when she came in. Reports abdominal fullness though denies any increased urination or foul- smelling urine. Review of Systems As noted a above Physical Examination - Vital Signs Temperature: 97.6 F Blood Pressure: 140/73 Pulse: 79 Respirations: 20 Pulse Ox (%): 96 - Physical Exam General: Alert, In no apparent distress HEENT: Atraumatic, PERRLA, EOMI Neck: Supple, JVD not distended Respiratory: Clear to auscultation bilaterally, Normal air movement Cardiovascular: Regular rate/rhythm, Normal S1 S2 Gastrointestinal: Normal bowel sounds, No tenderness Musculoskeletal: No tenderness Integumentary: No rashes Neurological: Normal speech, Normal tone, Normal affect Lymphatics: No axilla or inguinal lymphadenopathy - Studies Medications List Reviewed: Yes Assessment And Plan - Current Problems (Diagnosis) (1) UTI (urinary tract infection) Onset Date: 10/06/15 Current Visit: No Status: Acute Plan: Patient with a history of recurrent UTIs. Discharged about a month ago on oral Levaquin for UTI and oral Flagyl for C. diff. Patient states that she did not orange picker these prescriptions and has not taken any antibiotics since she has been discharged from the last visit. She returns with a possible urinary tract infection, ESBL resistant to Levaquin. Patient also has a Song catheter in as she was not able to walk to the bathroom. Will go ahead and discontinue Song catheter, recent the catheterized urine sample. Discontinue Levaquin and switched to IV Zosyn. Will follow up with cultures and make antibiotic adjustments as needed. Qualifiers: Urinary tract infection type: acute cystitis Hematuria presence: without hematuria Qualified Code(s): N30.00 - Acute cystitis without hematuria (2) COPD with acute exacerbation Onset Date: 01/20/18 Current Visit: Yes Status: Acute Plan: Patient at baseline with breathing, on oxygen via nasal cannula. Repeat chest x -ray with no acute abnormalities. Will continue steroids and breathing treatments. Dyspnea resolved and now at baseline, will continue to monitor (3) Acute on chronic diastolic CHF (congestive heart failure) Onset Date: 07/26/17 Current Visit: No Status: Acute Plan: Patient currently being diuresed with IV Lasix, twice a day. Will continue IV diuresis. Echo pending (4) Depression with anxiety Onset Date: 11/13/17 Current Visit: No Status: Chronic Plan: Continue home Zoloft. Stable at this time. (5) Chest pain Onset Date: 02/20/16 Current Visit: No Status: Acute Plan: Resolved Qualifiers: Chest pain type: unspecified Qualified Code(s): R07.9 - Chest pain, unspecified (6) Hypertension Onset Date: 03/27/16 Current Visit: No Status: Chronic Plan: Continue home medications. Hydralazine p.r.n. ordered Qualifiers:
[2018-01-21] MEDS: ONDANSETRON 4 MG/2 ML VIAL IV PRN (21:20)
[2018-01-21] MEDS: NA CHLORIDE 0.9% 1,000 ML IV SCH (23:04)
[2018-01-22] MEDS: clonazePAM 1 MG TAB PO PRN (00:46)
[2018-01-22] MEDS: Meropenem 1,000 MG in NA CHLORIDE 0.9% 100 ML IV SCH ×3 (00:47→16:15)
[2018-01-22] MEDS: ONDANSETRON 4 MG/2 ML VIAL IV PRN (02:23)
[2018-01-22] MEDS: FENTANYL CITR 100 MCG/2 ML IV PRN (02:40)
[2018-01-22] MEDS: IPRATROPIUM BROM 0.5MG/2.5ML NEB SCH ×3 (04:50→14:00)
[2018-01-22 05:14] VITALS: O2SAT 98
[2018-01-22] MEDS: METHYLPREDNISOLONE 125 MG INJ IV SCH ×3 (05:36→17:30)
[2018-01-22] MEDS: PANTOPRAZOLE 40MG TABLET PO SCH (05:38)
[2018-01-22] MEDS: Oxycodone HCl/Acetaminophen 1 TAB TAB PO PRN ×3 (05:42→16:15)
[2018-01-22 06:22] LABS: Absolute Lymphocytes (CBC) 0.6 K/uL (0.7-4.9); Absolute Monocytes 0.3 K/uL (0.1-1.3); Absolute Neutrophil 6.5 K/uL (1.8-8.0); Basophils % 0.1 % (0-1.3); Hematocrit 37.4 % (36.0-45.0); Lymphocytes % 8.1 % (15.3-44.8); MCH 28.5 pg (27.0-35.0); MCV 86.8 fL (80-100); MPV 7.9 fL (7.6-11.3); Monocytes % 4.6 % (3.3-12.3)
[2018-01-22 06:37] LABS: Albumin 2.9 g/dL (3.4-5.0); Bilirubin Total 0.2 mg/dL (0.2-1.0); Potassium 4.2 mmol/L (3.5-5.1); Protein, Total 6.2 g/dL (6.4-8.2)
[2018-01-22 06:50] VITALS: BMI 62.6
--- NOTE | 2018-01-22 07:02 | RAD REPORT ---
EXAM DESCRIPTION: RAD - Chest Single View - 01/22/2018 4:18 am CLINICAL HISTORY: PICC line placement A preliminary report was provided at the time of the study and reviewed prior to final report. COMPARISON: January 20 FINDINGS: Portable chest was obtained following placement of a right upper extremity PICC line. The catheter tip is in the mid SVC. Shallow inspiration accentuates vasculature and lung markings. Significant vascular or parenchymal ch lauren doubtful.
[2018-01-22] MEDS: ARFORMOTEROL TARTRATE 15 MCG/2 ML VIAL.NEB NEB SCH (08:00)
[2018-01-22] MEDS: ENOXAPARIN 40 MG/0.4 ML SQ SCH (08:58)
[2018-01-22] MEDS: SERTRALINE HCL 100 MG TAB PO SCH (08:59)
[2018-01-22] MEDS: METOPROLOL TAR 50 MG TAB PO SCH (09:00)
[2018-01-22] MEDS: GABAPENTIN 400 MG CAP PO SCH (09:00)
[2018-01-22] MEDS: ASPIRIN 81 MG CHEWABLE TABLET PO SCH (09:00)
[2018-01-22] MEDS: FUROSEMIDE 40 MG TABLET PO SCH ×2 (09:00→16:14)
[2018-01-22] MEDS: AMLODIPINE 10 MG TAB PO SCH (09:01)
[2018-01-22 12:45] VITALS: BP 137/71
[2018-01-22] MEDS: PROCHLORPERAZINE 5 MG TAB PO PRN (14:24)
--- NOTE | 2018-01-22 17:07 | P.DS ---
Admission Date: 01/17/18 Discharge Date: 01/22/18 Disposition: AL HOME/HOME HEALTH CARE Discharge Condition: GOOD Reason for Admission: COPD exacerbation - Problems (1) UTI (urinary tract infection) Onset Date: 10/06/15 Current Visit: No Status: Acute Qualifiers: Urinary tract infection type: acute cystitis Hematuria presence: without hematuria Qualified Code(s): N30.00 - Acute cystitis without hematuria (2) COPD with acute exacerbation Onset Date: 01/20/18 Current Visit: Yes Status: Acute (3) Acute on chronic diastolic CHF (congestive heart failure) Onset Date: 07/26/17 Current Visit: No Status: Acute (4) Depression with anxiety Onset Date: 11/13/17 Current Visit: No Status: Chronic (5) Chest pain Onset Date: 02/20/16 Current Visit: No Status: Acute Qualifiers: Chest pain type: unspecified Qualified Code(s): R07.9 - Chest pain, unspecified (6) Hypertension Onset Date: 03/27/16 Current Visit: No Status: Chronic Qualifiers: Brief History of Present Illness: Patient is a 67-year-old female who came to the hospital with difficulty breathing. Patient was recently discharged from rehabilitation. Patient was found to have a resistant infection and was discharged home with weeks of antibiotics. She is not really sure exactly what this was but medication was called in for her. Patient had been doing well and has been ambulating. She has had workup being done around the house. Suddenly she started getting short of breath and coughing over the last 24 hr. Her symptoms gradually worsened and she came into the emergency room for further evaluation. This which worsened has a longstanding history of respiratory problems. She had asthma and then she smoked and has developed COPD. She also had morbid obesity-her body mass index is 62.8. She has obesity hypoventilation syndrome. She does not use her CPAP regularly. Blood gases were not done on arrival. However, we will go ahead and admit her to the hospital for further evaluation. Hospital Course: (1) UTI (urinary tract infection),ESBL E.Coli, Patient with a history of recurrent UTIs. Discharged about a month ago on oral Levaquin for UTI and oral Flagyl for C. diff. 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 She returns with a urinary tract infection , ESBL resistant to Levaquin. Patient also has a Song catheter placed as she was not able to walk to the bathroom. Her Song catheter was discontinued. Her Levaquin was discontinued and she was switched to IV meropenem. A PICC line was placed and she will continue IV meropenem for 2 weeks via home health. She was educated on completing IV antibiotic course. (2) COPD with acute exacerbation Patient remains stable at her baseline, on oxygen via nasal cannula. Repeat chest x-ray without any acute abnormalities. She was continued on her steroids and breathing treatments. No medication changes made on discharge. (3) Acute on chronic diastolic CHF (congestive heart failure) Patient was initially diuresed with IV Lasix, twice a day. Patient refused IV Lasix that was making her urinate too much and she was unable to make it to the bathroom and did not like the feeling. Switched over to oral Lasix, will continue home oral Lasix dose at discharge. (4) Depression with anxiety Patient remains stable from this point of view. She was continued on her home medications. No medication dosage changes made at discharge. (5) Hypertension She remains stable on her home medications. No changes made to home medication dosages Vital Signs/Physical Exam: Temp Pulse Resp BP Pulse Ox 97.6 F 68 20 137/71 95 01/22/18 12:00 01/22/18 16:14 01/22/18 12:00 01/22/18 16:14 01/22/18 12:00 General: Alert, In no apparent distress HEENT: Atraumatic, PERRLA, EOMI Neck: Supple, JVD not distended Respiratory: Clear to auscultation bilaterally, Normal air movement Cardiovascular: Regular rate/rhythm, Normal S1 S2 Gastrointestinal: Normal bowel sounds, No tenderness Musculoskeletal: No tenderness Integumentary: No rashes Neurological: Normal speech, Normal tone, Normal affect Lymphatics: No axilla or inguinal lymphadenopathy Laboratory Data at Discharge: WBC 7.4 K/uL (4.3-10.9) D 01/22/18 06:07 Hgb 12.3 g/dL (12.0-15.0) 01/22/18 06:07 Hct 37.4 % (36.0-45.0) 01/22/18 06:07 Plt Count 240 K/uL (152-406) 01/22/18 06:07 PT 12.9 SECONDS (9.5-12.5) H 01/17/18 19:00 INR 1.09 01/17/18 19:00 Sodium 137 mmol/L (136-145) 01/22/18 06:07 Potassium 4.2 mmol/L (3.5-5.1) 01/22/18 06:07 BUN 27 mg/dL (7-18) H 01/22/18 06:07 Creatinine 0.70 mg/dL (0.55-1.3) 01/22/18 06:07 Glucose 224 mg/dL (74-106) H 01/22/18 06:07 Phosphorus 4.1 mg/dL (2.5-4.9) 01/18/18 05:52 Magnesium 2.1 mg/dL (1.8-2.4) 01/18/18 05:52 Total Bilirubin 0.2 mg/dL (0.2-1.0) 01/22/18 06:07 AST 10 U/L (15-37) L 01/22/18 06:07 ALT 17 U/L (12-78) 01/22/18 06:07 Alkaline Phosphatase 86 U/L (45-117) 01/22/18 06:07 Troponin I < 0.02 ng/mL (0.0-0.045) 01/18/18 23:33 Home Medications: Albuterol Inhaler [Ventolin Inhaler*] 2 puff IH QIDP PRN 11/12/17 Amlodipine [Norvasc*] 5 mg PO DAILY 11/12/17 Aspirin 81 mg PO DAILY 11/12/17 Esomeprazole Mag Trihydrate [Nexium] 1 cap PO DAILY 11/12/17 Furosemide [Lasix*] 40 mg PO DAILY 11/12/17 Gabapentin [Neurontin*] 400 mg PO BID 11/12/17 Metoprolol Tartrate [Lopressor*] 50 mg PO DAILY 11/12/17 Oxycodone HCl/Acetaminophen [Endocet 10-325 mg Tablet] 1 each PO Q4H PRN Sertraline [Zoloft*] 100 mg PO DAILY 11/12/17 hydrOXYzine pamoate [Hydroxyzine Pamoate] 1 tab PO BID PRN 11/13/17 Promethazine HCl 25 mg PO BIDP PRN 12/15/17 clonazePAM [Klonopin*] 1 mg PO BID PRN #50 tab 12/23/17 Budesonide/Formoterol Fumarate [Symbicort 160-4.5 Mcg Inhaler] 2 puff IH BID Lisinopril 40 mg PO BID 01/17/18 Meropenem [Merrem] 1,000 mg IV Q8H 14 Days vial 01/22/18 New Medications: Meropenem [Merrem] 1,000 mg IV Q8H 14 Days vial Patient Discharge Instructions: Please follow up with the primary care physician in 1 week. He were diagnosed with the urinary tract infection, with ESBL and needs to be on IV antibiotics for 2 weeks. Diet: AHA Activity: Ad leti Time spent managing pt's care (in minutes): 55
[2018-01-22 17:18] VITALS: TEMP 96.8
== END 2018-01-22 18:05 | disposition home health service (06) | DRG 689 ==
LOC: ER 18:18 → ERHOLD 20:42 → 2ND 21:21
PROVIDERS: ADMIT Hospitalist; ATTEND Family Medicine
PROC: 02HV33Z Insertion of Infusion Device into Superior Vena Cava, Percutaneous Approach (ICD-10-PCS; principal; 2018-01-22)
PROC: B548ZZA Ultrasonography of Superior Vena Cava, Guidance (ICD-10-PCS; 2018-01-22)
DX: N30.00 Acute cystitis without hematuria (principal); I50.33 Acute on chronic diastolic (congestive) heart failure; J44.1 Chronic obstructive pulmonary disease with (acute) exacerbation; Z68.44 Body mass index [BMI] 60.0-69.9, adult; E66.2 Morbid (severe) obesity with alveolar hypoventilation; I11.0 Hypertensive heart disease with heart failure; F32.9 Major depressive disorder, single episode, unspecified; F41.9 Anxiety disorder, unspecified; R07.9 Chest pain, unspecified; B96.29 Other Escherichia coli [E. coli] as the cause of diseases classified elsewhere; Z16.31 Resistance to antiparasitic drug(s); Z88.1 Allergy status to other antibiotic agents; Z88.5 Allergy status to narcotic agent; Z88.8 Allergy status to other drugs, medicaments and biological substances; E03.9 Hypothyroidism, unspecified; K21.9 Gastro-esophageal reflux disease without esophagitis; Z87.891 Personal history of nicotine dependence; K52.9 Noninfective gastroenteritis and colitis, unspecified
CPT/HCPCS: 36415; 71045; 71046; 80048; 80053; 80076; 81003; 81015; 82805; 83735; 83880; 84100; 84439; 84443; 84484; 85025; 85027; 85610; 87077; 87086; 87088; 87186; 93005; 94640; 94760; 96374; 96375; 97163; 99285; J0360; J1650; J1940; J2405; J2543; J2930; J3010; J7030; J7605

== ENCOUNTER 2018-01-30 15:29 | Emergency (ER) | payer OTHER ==
[2018-01-30 16:06] LABS: Absolute Lymphocytes (CBC) 0.8 K/uL (0.7-4.9); Absolute Monocytes 0.2 K/uL (0.1-1.3); Absolute Neutrophil 10.7 K/uL (1.8-8.0); Basophils % 0.1 % (0-1.3); Eosinophils % 0.2 % (0-4.4); Hematocrit 37.4 % (36.0-45.0); Lymphocytes % 7.1 % (15.3-44.8); MCH 28.2 pg (27.0-35.0); MCV 88.2 fL (80-100); MPV 7.5 fL (7.6-11.3); Monocytes % 1.7 % (3.3-12.3); RBC Red Blood Cell Count 4.24 M/uL (3.86-4.86)
[2018-01-30] MEDS ORDERED: ONDANSETRON 4 MG/2 ML VIAL ONE (16:07)
[2018-01-30] MEDS ORDERED: FENTANYL CITR 100 MCG/2 ML ONE (16:07)
[2018-01-30 16:16] LABS: Protime INR 0.99
[2018-01-30 17:20] LABS: Blood Morphology Comment NOTED (NOT SEEN); Platelet Estimate ADEQ; Urine White Blood Cell Casts 0
[2018-01-30 17:21] LABS: Hypochromasia 1+
--- NOTE | 2018-01-30 17:31 | RAD REPORT ---
EXAM DESCRIPTION: CT - Head C Spine Cap Charlotte Robert - 01/30/2018 5:17 pm CLINICAL HISTORY: Fall, head and neck injury, loss of consciousness, headache, neck pain, back pain and abdomen pain COMPARISON: CT head December 10, CT abdomen and pelvis February 2016 TECHNIQUE: Axial [address] head images were obtained. Axial [address] cervical spine images were obtaine d with sagittal and coronal reconstruction images reviewed. During dynamic enhancement of 100mL non-i onic contrast, axial 5 mm images of the chest, abdomen and pelvis were obtained. All CT scans are performed using dose optimization technique as appropriate and may include automated exposure control or mA/KV adjustment according to patient size. FINDINGS: No intracranial hemorrhage, mass or edema. No midline shift or abnormal fluid collection. Mastoid air cells and paranasal sinuses are clear. No skull fracture. No significant change from c omparison. CT cervical spine imaging shows normal height. No suspicious alignment abnormality. Disc space narrow ing is seen at multiple levels throughout the cervical spine. Minimal subluxation of C3 is believed t o be secondary to facet degenerative change. No paraspinal mass or hematoma seen. Central canal detai l is inherently limited. Concerns for traumatic disc herniation or traumatic cord injury can be furth er addressed with MR imaging. CT chest shows no pneumothorax, pulmonary contusion or pleural fluid collection. No mediastinal hemat kim and the aorta and pulmonary arteries are unremarkable. No chest will mass or abnormal axillary fi nding. No acute rib fracture seen. Patient has multiple old anterior left rib fractures. CT abdomen and pelvis show no injury to solid abdominal viscera. Gallbladder and biliary tree are unr emarkable. No bowel injury or significant finding. No free air, free fluid or abnormal stranding. No urinary bladder abnormality. Bony degenerative change present throughout the thoracic spine, lumbar spine and pelvis. No acute fin ding evident. IMPRESSION: No hemorrhage, edema or acute CT Head finding. Cervical spine degenerative change with no acute finding identifiable. No acute CT chest finding. No significant CT Abdomen and Pelvis finding.
[2018-01-30] MEDS ORDERED: LIDOCAINE 1% W/EPI 1:100,000 MDV 50 ML VIAL ONE (18:16)
[2018-01-30] MEDS ORDERED: HYDROCODONE/APAP 7.5/325 MG TAB ONE (18:19)
[2018-01-30] MEDS ORDERED: TETANUS & DIPHTHERIA TOX,ADULT 0.5 ML VIAL ONE (19:23)
--- NOTE | 2018-01-30 19:23 | EDPHYS ---
Physician Documentation [facility] Name: Amy Velasquez Age: 67 yrs Sex: Female : 1950 Arrival Date: 01/30/2018 Time: 15:32 Bed 4 Private MD: ED Physician Padilla Mak HPI: 01/30 15:35 This 67 yrs old Female presents to ER via Unassigned with complaints of Fall cp Injury. 15:35 Details of fall: The patient fell from a height, down approximately 3 stairs, from an cp upright position, while walking, and struck a concrete surface. Onset: The symptoms/episode began/occurred just prior to arrival. 15:35 Associated injuries: The patient sustained injury to the head, laceration, of the scalp.cp 15:35 EMS reports patient experienced LOC for unknown duration. cp Historical: - Allergies: 15:41 Amitriptyline; hb 15:41 Cipro; hb 15:41 Morphine (rash, Itching); hb 15:41 Phenobarbital; hb - Home Meds: 15:41 amlodipine 5 mg tab 1 tab once daily [Active]; aspirin 81 mg Oral chew 1 tab once daily hb [Active]; Cheratussin AC 10-100 mg/5 mL Oral liqd 10 mL every 4 hours [Active]; clonazepam 1 mg Oral tab 1 tab once daily [Active]; furosemide 20 mg Oral tab 1 tab once daily [Active]; gabapentin 400 mg Oral cap 1 cap 3 times per day [Active]; lisinopril 40 mg Oral tab 1 tab twice a day [Active]; metoprolol tartrate 50 mg Oral tab 1 tab once daily [Active]; Nexium 40 mg Oral cpDR 1 cap once daily [Active]; nystatin 100,000 unit/gram Topical crea 3 times per day [Active]; oxycodone-acetaminophen 10-325 mg Oral tab 1 tab every 6 hours for Pain [Active]; prednisone 20 mg Oral tab 1 tab 2 times per day [Active]; sertraline 50 mg Oral tab 3 tabs once daily [Active]; Ventolin Rotahaler/Rotacaps Inhl four times a day [Active]; - PMHx: 15:41 Anxiety; Asthma; Atrial Fib; CANCER, SKIN; CHF; COPD; Degenerative disc disease; hb Hernia; Hypertension; ADD/ADHD; - Immunization history:: Adult Immunizations up to date. - Social history:: Smoking status: Patient/guardian denies using tobacco. - Ebola Screening: : No symptoms or risks identified at this time. ROS: 15:40 Constitutional: Negative for fever. cp 15:40 Respiratory: Negative for cough, wheezing. cp 15:40 Abdomen/GI: Negative for vomiting. 15:40 Back: Positive for pain at rest, pain with movement, of the lumbar area. 15:40 Skin: Positive for laceration(s), of the scalp. 15:40 Neuro: Positive for loss of consciousness, seizure activity, Negative for altered mental status. 15:40 All other systems are negative. Exam: 15:47 Constitutional: The patient appears in no acute distress, alert, awake, cp non-diaphoretic, well developed, well nourished, morbid obesity 15:47 Head/face: Noted is a laceration(s), that is deep, that is jagged, of the occipital cp area. 15:47 Eyes: Periorbital structures: appear normal, Pupils: equal, round, and reactive to light and accomodation, Extraocular movements: intact throughout, Conjunctiva: normal, no exudate, no injection, Sclera: no appreciated abnormality, Lids and lashes: appear normal, bilaterally. 15:47 ENT: External ear(s): are unremarkable, Ear canal(s): are normal, clear, TM's: dullness, bilaterally, Nose: is normal, Mouth: Lips: moist, Oral mucosa: pink and intact, moist, Posterior pharynx: is normal, airway is patent, no erythema, no exudate, Voice: is normal. 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 15:47 Cardiovascular: Rate: normal, Rhythm: regular, Pulses: Pulses are 2+ in right radial artery and left radial artery. 15:47 Respiratory: the patient does not display signs of respiratory distress, Respirations: normal, no use of accessory muscles, no retractions, no splinting, no tachypnea, labored breathing, is not present, Breath sounds: are clear throughout, no decreased breath sounds, no stridor, no wheezing. 15:47 Abdomen/GI: Inspection: obese Bowel sounds: active, all quadrants, Palpation: abdomen is soft and non-tender, in all quadrants, rebound tenderness, is not appreciated, involuntary guarding, is not appreciated. 15:47 Back: pain, that is moderate, of the lumbar area, Straight leg raises: of both lower extremities does not illicit pain. 15:47 Musculoskeletal/extremity: Exam is negative for decreased range of motion, deformity, injury. 15:47 Skin: cellulitis, is not appreciated, no rash present. 15:47 Neuro: Orientation: to person, place \T\ time. Mentation: is normal, Cerebellar function: is grossly normal, Motor: moves all fours, strength is normal, Sensation: is normal. Vital Signs: 15:41 BP 135 / 70; Pulse 96; Resp 20; Temp 98.2; Pulse Ox 90% on 3 lpm NC; Weight 165 kg (R); hb Pain 9/10; 16:19 BP 138 / 76; Pulse 97; Resp 12; Pulse Ox 92% on 3 lpm NC; ph 17:27 BP 127 / 85; Pulse 92; Resp 16; Pulse Ox 94% on 3 lpm NC; ph 18:30 BP 130 / 90; Pulse 94; Resp 16; Pulse Ox 98% on R/A; ph 19:33 BP 120 / 76; Pulse 92; Resp 20; Temp 98.3; Pulse Ox 97% on R/A; Pain 5/10; tl1 [place] Coma Score: 15:38 Eye Response: spontaneous(4). Verbal Response: oriented(5). Motor Response: obeys hb commands(6). Total: 15. 16:19 Eye Response: spontaneous(4). Verbal Response: oriented(5). Motor Response: obeys ph commands(6). Total: 15. 17:27 Eye Response: spontaneous(4). Verbal Response: oriented(5). Motor Response: obeys ph commands(6). Total: 15. 18:30 Eye Response: spontaneous(4). Verbal Response: oriented(5). Motor Response: obeys ph commands(6). Total: 15. 19:33 Eye Response: spontaneous(4). Verbal Response: oriented(5). Motor Response: obeys tl1 commands(6). Total: 15. Trauma Score (Adult): 15:38 Eye Response: spontaneous(1); Verbal Response: oriented(1); Motor Response: obeys hb commands(2); Systolic BP: > 89 mm Hg(4); Respiratory Rate: 10 to 29 per min(4); Nam Score: 15; Trauma Score: 12 16:19 Eye Response: spontaneous(1); Verbal Response: oriented(1); Motor Response: obeys ph commands(2); Systolic BP: > 89 mm Hg(4); Respiratory Rate: 10 to 29 per min(4); [place] Score: 15; Trauma Score: 12 17:27 Eye Response: spontaneous(1); Verbal Response: oriented(1); Motor Response: obeys ph commands(2); Systolic BP: > 89 mm Hg(4); Respiratory Rate: 10 to 29 per min(4); [place] Score: 15; Trauma Score: 12 18:30 Eye Response: spontaneous(1); Verbal Response: oriented(1); Motor Response: obeys ph commands(2); Systolic BP: > 89 mm Hg(4); Respiratory Rate: 10 to 29 per min(4); [place] Score: 15; Trauma Score: 12 Laceration: 18:48 Wound Repair of 7cm ( 2.8in ) subcutaneous laceration to scalp. Irregularly shaped.. cp Distal neuro/vascular/tendon intact. Anesthesia: Local anesthetic administered with 8 mls of 1% lidocaine w/ Epi. Wound prep: Moderate cleansing by me, Wound irrigation by me. Skin closed with 9 1-0 Vidal using staple gun. Dressed with 4x4's, Kerlix. Patient tolerated well. MDM: 15:57 Patient medically screened. cp 16:00 Differential diagnosis: closed head injury, contusion, fracture, laceration, multiple cp trauma. 19:21 Data reviewed: vital signs, nurses notes, lab test result(s), radiologic studies, CT cp scan. 19:21 Counseling: I had a detailed discussion with the patient and/or guardian regarding: the cp historical points, exam findings, and any diagnostic results supporting the discharge/admit diagnosis, lab results, radiology results, to return to the emergency department if symptoms worsen or persist or if there are any questions or concerns that arise at home. Response to treatment: the patient's symptoms have markedly improved after treatment, and as a result, I will discharge patient. Special discussion: Based on the patient's history, exam and DX evaluation, there is no indication for emergent intervention or inpatient TX. It is understood by the patient/guardian that if the SXs persist or worsen they need to return immediately for re-evaluation. 01/30 15:38 Order name: Basic Metabolic Panel; Complete Time: 16:38 cp 01/30 16:40 Interpretation: Normal except: GLUC 161; GFR 72. cp 01/30 15:38 Order name: CBC with Diff; Complete Time: 17:37 cp 01/30 16:38 Interpretation: Normal except: WBC 11.7; MCHC 31.9; MPV 7.5; IHSAN% 90.9; LYM% 7.1; MN% cp 1.7; NEUT A 10.7. 01/30 15:38 Order name: Creatinine for Radiology; Complete Time: 16:38 cp 01/30 15:38 Order name: Type And Screen; Complete Time: 17:37 cp 01/30 15:38 Order name: PT-INR; Complete Time: 16:38 cp 01/30 15:38 Order name: Ptt, Activated; Complete Time: 16:38 cp 01/30 15:38 Order name: CT Traumagram (Head C Spine CAP W Con); Complete Time: 17:37 cp 01/30 15:38 Order name: Labs collected and sent; Complete Time: 15:53 cp 01/30 16:22 Order name: CBC Smear Scan; Complete Time: 17:37 EDMS 01/30 18:08 Order name: Wound Care: please clean and irrigate wound; Complete Time: 19:00 cp 01/30 18:09 Order name: Misc. Order: staple gun to bedside; Complete Time: 19:00 cp 01/30 18:46 Order name: Wound dressing; Complete Time: 19:18 cp 01/30 18:46 Order name: Misc. Order: ambulate patient; Complete Time: 19:34 cp Administered Medications: 16:08 Drug: fentaNYL (PF) 25 mcg Route: IVP; Site: PICC; ph 16:50 Follow up: Response: No adverse reaction; Pain is decreased ph 16:09 Drug: Zofran 4 mg Route: IVP; Site: PICC; ph 16:50 Follow up: Response: No adverse reaction; Nausea is decreased ph 18:15 Drug: Hydrocodone-Acetaminophen (7.5 mg-325 mg) 1 tabs Route: PO; ph 18:59 Follow up: Response: No adverse reaction ph 19:34 Follow up: Response: No adverse reaction; Marked relief of symptoms; Pain is decreased tl1 18:20 Drug: Lidocaine-Epinephrine -1%: (1:100,000) 5 ml Volume: 20 ml; Route: Infiltration; ph 18:59 Follow up: Response: No adverse reaction ph 19:18 Drug: Tetanus-Diphtheria Toxoid Adult 0.5 ml {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 Exp: tl1 03/12/2020. Lot #: [id number]. } Route: IM; Site: left deltoid; 19:35 Follow up: Response: No adverse reaction; No change in condition tl1 Disposition: 20:00 Chart complete. cp Disposition: 01/30/18 19:22 Discharged to Home. Impression: Fall on and from stairs and steps, Laceration without foreign body of scalp, Concussion with loss of consciousness of unspecified duration. - Condition is Stable. - Discharge Instructions: Concussion, Adult, Head Injury, Adult, Laceration Care, Adult. - Medication Reconciliation Form, Thank You Letter, Antibiotic Education, Prescription Opioid Use form. - Follow up: Private Physician; When: 48 Hours; Reason: Wound Recheck. - Problem is new. - Symptoms have improved. Addendum: 02/01/2018 04:09 Co-signature as Attending Physician, Padilla Mak MD I agree with the assessment and w a plan of care. Signatures: Dispatcher [employer] EDBeverly Mcgill RN RN aa1 Sonia Quintero RN RN tl1 Sailaja Vaca RN RN ph Page, Corey, PA PA cp Baxter, Heather, RN RN Padilla Mak MD MD wa Corrections: (The following items were deleted from the chart) 01/30 19:47 19:22 01/30/2018 19:22 Discharged to Home. Impression: Fall on and from stairs and aa1 steps; Laceration without foreign body of scalp; Concussion with loss of consciousness of unspecified duration. Condition is Stable. Forms are Medication Reconciliation Form, Thank You Letter, Antibiotic Education, Prescription Opioid Use. Follow up: Private Physician; When: 48 Hours; Reason: Wound Recheck. Problem is new. Symptoms have improved. cp
--- NOTE | 2018-01-30 19:23 | ER ---
Nurse's Notes [facility] Name: Amy Velasquez Age: 67 yrs Sex: Female : 1950 Arrival Date: 01/30/2018 Time: 15:32 Bed 4 Private MD: Diagnosis: Fall on and from stairs and steps;Laceration without foreign body of scalp;Concussion with loss of consciousness of unspecified duration Presentation: 01/30 15:34 Presenting complaint: EMS states: Fall from approx 2 feet up stairs, landed supine on hb concrete. + LOC, takes ASA and heparin. Pt does not recall fall, c/o head, neck, and back pain 01/01. C collar and backboard in place. Care prior to arrival: Bleeding of injury controlled. Cervical collar in place. Placed on backboard. Mechanism of Injury: Fall down 3 steps. Trauma event details: Injury occurred in the [facility], Injury occurred: at home. Injury occurred: January 30, 2018. 15:34 Acuity: BHARTI 2 hb 15:34 Method Of Arrival: EMS: [facility] 16:17 Transition of care: patient was not received from another setting of care. Onset of ph symptoms was January 30, 2018. Risk Assessment: Do you want to hurt yourself or someone else? Patient reports no desire to harm self or others. Initial Sepsis Screen: Does the patient meet any 2 criteria? No. Patient's initial sepsis screen is negative. Does the patient have a suspected source of infection? No. Patient's initial sepsis screen is negative. Trauma Activation: Alert Physician: ED Physician; Name: ; Notified At: ; Arrived At: Physician: General Surgeon; Name: ; Notified At: ; Arrived At: Physician: Radiology; Name: ; Notified At: ; Arrived At: Physician: Respiratory; Name: ; Notified At: ; Arrived At: Physician: Lab; Name: ; Notified At: ; Arrived At: Historical: - Allergies: 15:41 Amitriptyline; hb 15:41 Cipro; hb 15:41 Morphine (rash, Itching); hb 15:41 Phenobarbital; hb - Home Meds: 15:41 amlodipine 5 mg tab 1 tab once daily [Active]; aspirin 81 mg Oral chew 1 tab once daily hb [Active]; Cheratussin AC 10-100 mg/5 mL Oral liqd 10 mL every 4 hours [Active]; clonazepam 1 mg Oral tab 1 tab once daily [Active]; furosemide 20 mg Oral tab 1 tab once daily [Active]; gabapentin 400 mg Oral cap 1 cap 3 times per day [Active]; lisinopril 40 mg Oral tab 1 tab twice a day [Active]; metoprolol tartrate 50 mg Oral tab 1 tab once daily [Active]; Nexium 40 mg Oral cpDR 1 cap once daily [Active]; nystatin 100,000 unit/gram Topical crea 3 times per day [Active]; oxycodone-acetaminophen 10-325 mg Oral tab 1 tab every 6 hours for Pain [Active]; prednisone 20 mg Oral tab 1 tab 2 times per day [Active]; sertraline 50 mg Oral tab 3 tabs once daily [Active]; Ventolin Rotahaler/Rotacaps Inhl four times a day [Active]; - PMHx: 15:41 Anxiety; Asthma; Atrial Fib; CANCER, SKIN; CHF; COPD; Degenerative disc disease; hb Hernia; Hypertension; ADD/ADHD; - Immunization history:: Adult Immunizations up to date. - Social history:: Smoking status: Patient/guardian denies using tobacco. - Ebola Screening: : No symptoms or risks identified at this time. Screenin:41 Abuse screen: Denies threats or abuse. Denies injuries from another. Nutritional hb screening: No deficits noted. Tuberculosis screening: No symptoms or risk factors identified. Fall Risk Total Omer Fall Scale indicates High Risk Score (45 or more points). Fall prevention measures have been instituted. Side Rails Up X 2 Frequent Obs/Assessments Occuring As available patient and family educated on Fall Prevention Program and Strategies. Primary Survey: 15:39 A: Airway: patent, Oxygen via nasal cannula at 3 liters per minute. Oral cavity: clear. hb Breathing/Chest: Respiratory pattern: regular, Respiratory effort: spontaneous, unlabored, Breath sounds: clear, bilaterally. Chest inspection: symmetrical rise and fall of the chest. Circulation: Pulses: palpable . Skin color: pink, Skin temperature: warm, dry. Disability Alert. 19:01 Reassessment Breathing/Chest Respiratory pattern Regular Circulation Color [place] ph Temperature Warm Dry Disability Alert. Assessment: 16:00 General: Appears in no apparent distress. uncomfortable, obese, Behavior is calm, ph cooperative, appropriate for age. Pain: Complains of pain in occipital area, neck, low back, and lora knees Pain currently is 9 out of 10 on a pain scale. Neuro: Level of Consciousness is awake, alert, obeys commands, Oriented to person, place, time, situation, Reports dizziness, headache. Cardiovascular: Capillary refill < 3 seconds in bilateral fingers. Respiratory: Airway is patent Respiratory effort is even, unlabored, Respiratory pattern is regular, symmetrical. GI: Reports nausea, Patient currently denies abdominal pain, vomiting. Derm: Skin is healthy with good turgor, Skin is pink, warm \T\ dry. Musculoskeletal: Circulation, motion, and sensation intact. Range of motion: intact in all extremities. Injury Description: Laceration sustained to occipital area is will fully assess wound when c-collar is removed. 16:40 Reassessment: Patient appears in no apparent distress at this time. Patient and/or ph family updated on plan of care and expected duration. Pain level reassessed. Patient is alert, oriented x 3, equal unlabored respirations, skin warm/dry/pink. Pt reports that overall pain level has decreased from 9/10 down to 7/10, also reports that nausea has improved, c-collar remains in place, awaiting CT scan. 16:52 Reassessment: Pt taken to CT via stretcher. ph 17:27 Reassessment: Patient appears in no apparent distress at this time. Patient and/or ph family updated on plan of care and expected duration. Pain level reassessed. Patient is alert, oriented x 3, equal unlabored respirations, skin warm/dry/pink. Pt returned from CT, VSS, family at bedside, awaiting CT results, c-collar remains in place. Vital Signs: 15:41 BP 135 / 70; Pulse 96; Resp 20; Temp 98.2; Pulse Ox 90% on 3 lpm NC; Weight 165 kg (R); hb Pain 9/10; 16:19 BP 138 / 76; Pulse 97; Resp 12; Pulse Ox 92% on 3 lpm NC; ph 17:27 BP 127 / 85; Pulse 92; Resp 16; Pulse Ox 94% on 3 lpm NC; ph 18:30 BP 130 / 90; Pulse 94; Resp 16; Pulse Ox 98% on R/A; ph 19:33 BP 120 / 76; Pulse 92; Resp 20; Temp 98.3; Pulse Ox 97% on R/A; Pain 5/10; tl1 Nam Coma Score: 15:38 Eye Response: spontaneous(4). Verbal Response: oriented(5). Motor Response: obeys hb commands(6). Total: 15. 16:19 Eye Response: spontaneous(4). Verbal Response: oriented(5). Motor Response: obeys ph commands(6). Total: 15. 17:27 Eye Response: spontaneous(4). Verbal Response: oriented(5). Motor Response: obeys ph commands(6). Total: 15. 18:30 Eye Response: spontaneous(4). Verbal Response: oriented(5). Motor Response: obeys ph commands(6). Total: 15. 19:33 Eye Response: spontaneous(4). Verbal Response: oriented(5). Motor Response: obeys tl1 commands(6). Total: 15. Trauma Score (Adult): 15:38 Eye Response: spontaneous(1); Verbal Response: oriented(1); Motor Response: obeys hb commands(2); Systolic BP: > 89 mm Hg(4); Respiratory Rate: 10 to 29 per min(4); [place] Score: 15; Trauma Score: 12 16:19 Eye Response: spontaneous(1); Verbal Response: oriented(1); Motor Response: obeys ph commands(2); Systolic BP: > 89 mm Hg(4); Respiratory Rate: 10 to 29 per min(4); Nam Score: 15; Trauma Score: 12 17:27 Eye Response: spontaneous(1); Verbal Response: oriented(1); Motor Response: obeys ph commands(2); Systolic BP: > 89 mm Hg(4); Respiratory Rate: 10 to 29 per min(4); Nam Score: 15; Trauma Score: 12 18:30 Eye Response: spontaneous(1); Verbal Response: oriented(1); Motor Response: obeys ph commands(2); Systolic BP: > 89 mm Hg(4); Respiratory Rate: 10 to 29 per min(4); Nam Score: 15; Trauma Score: 12 ED Course: 15:32 Patient arrived in ED. hb 15:35 You Jorge PA is PHCP. cp 15:35 Allan Lindsay MD is Attending Physician. cp 15:38 Triage completed. hb 15:39 Radiology exam delayed due to lab results not completed at this time. (BUN/Creatinine). vr 15:42 Arm band placed on right wrist. hb 15:57 Radiology exam delayed due to lab results not completed at this time. (BUN/Creatinine). vr 16:07 Sailaja Vaca, RN is Primary Nurse. ph 16:09 Accessed PICC line. using per hospital protocol. Clean \T\ dry. Dressing intact. Good ph blood return. Flushes easily. Oxygen administration via nasal cannula \T\ 3L/min. 16:11 Patient has correct armband on for positive identification. Bed in low position. Call ph light in reach. Side rails up X2. print shop stenographer on. Pulse ox on. NIBP on. Door closed. Lights dimmed. Warm blanket given. Head of bed elevated. 16:18 Thermoregulation: warm blanket given to patient. ph 16:19 Radiology exam delayed due to lab results not completed at this time. (BUN/Creatinine). vr 17:17 CT Traumagram (Head C Spine CAP W Con) In Process Unspecified. EDMS 18:25 Assist provider with laceration repair on occipital area using sarah. Set up tray. ph Performed by Padilla Mak MD. 18:48 Padilla Mak MD is Attending Physician. cp Administered Medications: 16:08 Drug: fentaNYL (PF) 25 mcg Route: IVP; Site: PICC; ph 16:50 Follow up: Response: No adverse reaction; Pain is decreased ph 16:09 Drug: Zofran 4 mg Route: IVP; Site: PICC; ph 16:50 Follow up: Response: No adverse reaction; Nausea is decreased ph 18:15 Drug: Hydrocodone-Acetaminophen (7.5 mg-325 mg) 1 tabs Route: PO; ph 18:59 Follow up: Response: No adverse reaction ph 19:34 Follow up: Response: No adverse reaction; Marked relief of symptoms; Pain is decreased tl1 18:20 Drug: Lidocaine-Epinephrine -1%: (1:100,000) 5 ml Volume: 20 ml; Route: Infiltration; ph 18:59 Follow up: Response: No adverse reaction ph 19:18 Drug: Tetanus-Diphtheria Toxoid Adult 0.5 ml {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 Exp: tl1 03/12/2020. Lot #: [id number]. } Route: IM; Site: left deltoid; 19:35 Follow up: Response: No adverse reaction; No change in condition tl1 Intake: 16:18 PO: 0ml; Total: 0ml. ph Output: 16:18 Urine: 0ml; Total: 0ml. ph Outcome: 19:22 Discharge ordered by . cp 19:47 Patient left the ED. aa1 Signatures: Dispatcher [employer] EDMS Beverly Suero RN RN aa1 Shwetha Cisneros Tonya RN RN tl1 Sailaja Vaca RN RN You Buckner PA PA cp Baxter, Heather RN RN hb
[2018-01-30 20:16] VITALS: BP 120/76; TEMP 98.3; O2SAT 97
== END 2018-01-30 19:47 | disposition home or self-care (01) ==
LOC: ER 15:29
PROC: 0JQ00ZZ Repair Scalp Subcutaneous Tissue and Fascia, Open Approach (ICD-10-PCS; principal; 2018-01-30)
DX: S01.01XA Laceration without foreign body of scalp, initial encounter (principal); S06.0X9A Concussion with loss of consciousness of unspecified duration, initial encounter; W10.9XXA Fall (on) (from) unspecified stairs and steps, initial encounter; Y93.9 Activity, unspecified; Y92.9 Unspecified place or not applicable; Z23 Encounter for immunization; Z79.82 Long term (current) use of aspirin; Z88.5 Allergy status to narcotic agent; Z88.8 Allergy status to other drugs, medicaments and biological substances; I10 Essential (primary) hypertension; I48.91 Unspecified atrial fibrillation; J45.909 Unspecified asthma, uncomplicated; I50.9 Heart failure, unspecified
CPT/HCPCS: 12002; 36415; 70450; 71260; 72125; 74177; 80048; 85025; 85610; 85730; 86850; 86900; 86901; 90714; 96374; 96375; 99285; J2405; J3010; Q9967

== ENCOUNTER 2018-04-04 19:52 | Observation (INO) | payer OTHER ==
[2018-04-04] MEDS ORDERED: ALBUTEROL 2.5 MG/3 ML NEB SOL ONE (20:50)
[2018-04-04] MEDS ORDERED: predniSONE 20 MG TAB ONE (20:51)
[2018-04-04] MEDS ORDERED: IPRATROPIUM BROM 0.5MG/2.5ML ONE (20:51)
--- NOTE | 2018-04-04 20:51 | RAD REPORT ---
EXAM DESCRIPTION: RAD - Chest Single View - 04/04/2018 8:41 pm CLINICAL HISTORY: SOB Chest pain. COMPARISON: Chest Single View dated 01/22/2018; Chest Pa And Lat (2 Views) dated 01/20/2018; Chest S ed View dated 01/17/2018; Chest Single View dated 11/14/2017 FINDINGS: Portable technique limits examination quality. Mild interstitial pulmonary edema. The heart is mildly enlarged in size. No displaced fractures. IMPRESSION: Mild CHF.
[2018-04-04 21:30] LABS: Absolute Monocytes 0.9 K/uL (0.1-1.3); Absolute Neutrophil 6.4 K/uL (1.8-8.0); Basophils % 0.7 % (0-1.3); Eosinophils % 1.9 % (0-4.4); Hematocrit 38.6 % (36.0-45.0); Lymphocytes % 28.6 % (15.3-44.8); MPV 7.7 fL (7.6-11.3); Monocytes % 8.2 % (3.3-12.3); RBC Red Blood Cell Count 4.42 M/uL (3.86-4.86)
[2018-04-04 21:37] LABS: Protime INR 1.05
[2018-04-04 21:50] LABS: ALT/SGPT 22 U/L (12-78); AST/SGOT 17 U/L (15-37); Albumin 3.4 g/dL (3.4-5.0); Alkaline Phosphatase 86 U/L (45-117); BUN Blood Urea Nitrogen 9 mg/dL (7-18); Bicarbonate 31 mmol/L (21-32); Bilirubin Direct < 0.1 mg/dL (0-0.2); Bilirubin Total 0.3 mg/dL (0.2-1.0); Glucose Level 97 mg/dL (74-106); NT PRO-BNP 1291 pg/mL (<125); Potassium 3.6 mmol/L (3.5-5.1); Protein, Total 6.7 g/dL (6.4-8.2); Sodium Level 143 mmol/L (136-145); Troponin (Emerg Dept Use Only) < 0.02 ng/mL (0.0-0.045)
[2018-04-04] MEDS ORDERED: NITROGLYCERIN 1 GM PKT TD ONE (22:08)
[2018-04-04] MEDS ORDERED: FUROSEMIDE 40 MG/4 ML VIAL ONE (22:09)
--- NOTE | 2018-04-04 23:25 | EDPHYS ---
Physician Documentation [facility] Name: Amy Velasquez Age: 67 yrs Sex: Female : 1950 Arrival Date: 04/04/2018 Time: 19:54 Bed 13 Private MD: Lucho Catalan ED Physician You Dao HPI: 04/04 20:30 This 67 yrs old Female presents to ER via Wheelchair with complaints of pm1 Breathing Difficulty, Fever. 20:30 The patient has shortness of breath at rest. Onset: The symptoms/episode began/occurred pm1 today. Duration: The symptoms are continuous. The patient's shortness of breath is aggravated by exertion, light activity, is alleviated by nothing. Associated signs and symptoms: Pertinent positives: chest pain, non-productive cough, dizziness, fever, Pertinent negatives: diaphoresis, nausea, vomiting. Severity of symptoms: in the emergency department the symptoms are worse. The patient has experienced similar episodes in the past, multiple times. The patient has not recently seen a physician. Historical: - Allergies: 20:05 Amitriptyline; fc 20:05 Cipro; fc 20:05 Morphine (rash, Itching); fc 20:05 Phenobarbital; fc - Home Meds: 20:05 amlodipine 5 mg tab 1 tab once daily [Active]; aspirin 81 mg Oral chew 1 tab once daily fc [Active]; Cheratussin AC 10-100 mg/5 mL Oral liqd 10 mL prn [Active]; clonazepam 1 mg Oral tab 1 tab once daily [Active]; furosemide 20 mg Oral tab 1 tab once daily [Active]; gabapentin 400 mg Oral cap 1 cap 3 times per day [Active]; lisinopril 40 mg Oral tab 1 tab twice a day [Active]; metoprolol tartrate 50 mg Oral tab 1 tab once daily [Active]; Nexium 40 mg Oral cpDR 1 cap once daily [Active]; nystatin 100,000 unit/gram Topical crea 3 times per day [Active]; oxycodone-acetaminophen 10-325 mg Oral tab 1 tab every 6 hours for Pain [Active]; prednisone 20 mg Oral tab 1 tab 2 times per day [Active]; sertraline 50 mg Oral tab 3 tabs once daily [Active]; Ventolin Rotahaler/Rotacaps Inhl four times a day [Active]; - PMHx: 20:05 ADD/ADHD; Anxiety; Atrial Fib; CANCER, SKIN; Asthma; COPD; Degenerative disc disease; fc Hernia; Hypertension; CHF; - PSHx: 20:05 Hernia repair; Tubal ligation; Hysterectomy; fc - Immunization history:: Last tetanus immunization: up to date Pneumococcal vaccine is up to date, Flu vaccine is up to date. - Social history:: Smoking status: Patient/guardian denies using tobacco, Patient/guardian denies using alcohol. - Ebola Screening: : Patient negative for fever greater than or equal to 101.5 degrees Fahrenheit, and additional compatible Ebola Virus Disease symptoms Patient denies exposure to infectious person Patient denies travel to an Ebola-affected area in the 21 days before illness onset. ROS: 20:30 Constitutional: Negative for fever, chills, and weight loss, Eyes: Negative for injury, pm1 pain, redness, and discharge, Neck: Negative for injury, pain, and swelling. 20:30 Abdomen/GI: Negative for abdominal pain, nausea, vomiting, diarrhea, and constipation, Back: Negative for injury and pain, : Negative for injury, bleeding, discharge, and swelling, MS/Extremity: Negative for injury and deformity, Skin: Negative for injury, rash, and discoloration, Neuro: Negative for headache, weakness, numbness, tingling, and seizure. 20:30 ENT: Positive for sore throat, Negative for ear pain. 20:30 Cardiovascular: Positive for chest pain, edema, Negative for palpitations. 20:30 Respiratory: Positive for cough, shortness of breath. Exam: 20:30 Constitutional: This is a well developed, well nourished patient who is awake, alert, pm1 and in no acute distress. Head/Face: Normocephalic, atraumatic. Eyes: Pupils equal round and reactive to light, extra-ocular motions intact. Lids and lashes normal. Conjunctiva and sclera are non-icteric and not injected. Cornea within normal limits. Periorbital areas with no swelling, redness, or edema. ENT: Nares patent. No nasal discharge, no septal abnormalities noted. Tympanic membranes are normal and external auditory canals are clear. Oropharynx with no redness, swelling, or masses, exudates, or evidence of obstruction, uvula midline. Mucous membranes moist. Neck: Trachea midline, no thyromegaly or masses palpated, and no cervical lymphadenopathy. Supple, full range of motion without nuchal rigidity, or vertebral point tenderness. No Meningismus. Chest/axilla: Normal chest wall appearance and motion. Nontender with no deformity. No lesions are appreciated. Cardiovascular: Regular rate and rhythm with a normal S1 and S2. No gallops, murmurs, or rubs. Normal PMI, no JVD. No pulse deficits. 20:30 Abdomen/GI: Soft, non-tender, with normal bowel sounds. No distension or tympany. No guarding or rebound. No evidence of tenderness throughout. Back: No spinal tenderness. No costovertebral tenderness. Full range of motion. Skin: Warm, dry with normal turgor. Normal color with no rashes, no lesions, and no evidence of cellulitis. MS/ Extremity: Pulses equal, no cyanosis. Neurovascular intact. Full, normal range of motion. 20:30 Respiratory: the patient does not display signs of respiratory distress, Respirations: normal, Breath sounds: wheezing: is heard diffusely. 20:30 Neuro: Orientation: is normal, Motor: is normal, moves all fours. Vital Signs: 20:00 Weight 163.29 kg (R); Height 5 ft. 3 in. (160.02 cm) (R); Pain 7/10; fc 20:05 BP 170 / 77; Pulse 70; Resp 24; Temp 98.5(O); Pulse Ox 93% on R/A; fc 21:30 BP 147 / 79; Pulse 91; Resp 18; Pulse Ox 96% on R/A; jb4 22:00 BP 151 / 96; Pulse 88; Resp 16; Pulse Ox 96% on 2 lpm NC; jb4 23:40 BP 147 / 86; Pulse 86; Resp 17; Pulse Ox 94% on 2 lpm NC; jb4 04/05 01:00 BP 138 / 88; Pulse 83; Resp 16; Pulse Ox 93% on 2 lpm NC; jb4 02:00 BP 127 / 75; Pulse 81; Resp 16; Pulse Ox 95% on 2 lpm NC; jb4 03:00 BP 128 / 80; Pulse 78; Resp 17; Pulse Ox 95% on 2 lpm NC; jb4 04/04 20:00 Body Mass Index 63.77 (163.29 kg, 160.02 cm) fc MDM: 04/04 20:18 Patient medically screened. pm1 23:23 Data reviewed: vital signs. Data interpreted: Pulse oximetry: on room air is 96 %. pm1 Interpretation: normal. Counseling: I had a detailed discussion with the patient and/or guardian regarding: the historical points, exam findings, and any diagnostic results supporting the discharge/admit diagnosis, lab results, radiology results, the need for further work-up and treatment in the hospital. 04/04 20:23 Order name: Basic Metabolic Panel; Complete Time: 22:09 pm04/04 20:23 Order name: CBC with Diff; Complete Time: 21:46 pm1 04/04 20:23 Order name: LFT's; Complete Time: 22:09 pm1 04/04 20:23 Order name: Magnesium; Complete Time: 22:09 pm04/04 20:23 Order name: NT PRO-BNP; Complete Time: 22:09 pm1 04/04 20:23 Order name: PT-INR; Complete Time: 21:46 pm04/04 20:23 Order name: Troponin (emerg Dept Use Only); Complete Time: 22:09 pm04/04 20:23 Order name: XRAY Chest (1 view); Complete Time: 20:57 pm1 04/04 20:23 Order name: Flu; Complete Time: 21:46 pm1 04/04 20:23 Order name: Strep; Complete Time: 21:46 pm1 04/04 20:23 Order name: Blood Culture Adult (2) pm1 04/04 20:23 Order name: Procalcitonin; Complete Time: 22:29 pm1 04/04 21:23 Order name: Lactate; Complete Time: 22:09 ar5 04/04 21:28 Order name: Throat Culture EDUT 04/04 20:23 Order name: EKG; Complete Time: 20:24 pm1 04/04 20:23 Order name: Cardiac monitoring; Complete Time: 20:39 pm1 04/04 20:23 Order name: EKG - Nurse/Tech; Complete Time: 20:39 pm1 04/04 20:23 Order name: IV Saline Lock; Complete Time: 21:49 pm1 04/04 20:23 Order name: Labs collected and sent; Complete Time: 21:49 pm04/04 20:23 Order name: O2 Per Protocol; Complete Time: 20:39 pm1 04/04 20:23 Order name: O2 Sat Monitoring; Complete Time: 20:39 pm1 Administered Medications: 20:45 Drug: Albuterol - atroVENT (3:1) (2.5 mg - 0.5 mg) 3 ml Route: Nebulizer; jb4 21:05 Follow up: Response: No adverse reaction jb4 20:45 Drug: predniSONE 60 mg Route: PO; jb4 21:05 Follow up: Response: No adverse reaction jb4 22:10 Not Given (Patient Refused): Lasix 40 mg IVP once jb4 22:10 Drug: Nitro-Bid Ointment 2 % 1 inches Route: Transdermal; Site: anterior chest wall; jb4 22:40 Follow up: Response: No adverse reaction; Pain is decreased jb4 23:45 Drug: Lasix 40 mg Route: IVP; Site: right upper arm; jb4 04/05 00:30 Follow up: Response: No adverse reaction jb4 Disposition: 04/04/18 23:24 Hospitalization ordered by Jennifer Antoine for Observation. Preliminary diagnosis is Acute combined systolic (congestive) and diastolic (congestive) heart failure. - Bed requested for Telemetry/MedSurg (observation). - Status is Observation. jb4 - Condition is Stable. - Problem is new. - Symptoms have improved. UTI on Admission? No Addendum: 04/08/2018 06:50 Co-signature as Attending Physician, You Dao MD I agree with the assessment and c alfaro plan of care. Signatures: Dispatcher [employer] EDMS Twila Turner RN RN kl Anderson, Corey, MD MD cha Chretien, Felicia, RN RN fc Marinas, Patrick, NP ECONOMETRICS PROFESSOR pm1 Errol Najera RN RN jb4 Corrections: (The following items were deleted from the chart) 04/05 01:04/04 23:24 Hospitalization Ordered by Jennifer Antoine MD for Observation. Preliminary kl diagnosis is Acute combined systolic (congestive) and diastolic (congestive) heart failure. Bed requested for Telemetry/MedSurg (observation). Status is Observation. Condition is Stable. Problem is new. Symptoms have improved. UTI on Admission? No. pm1 04/05 03:41 01:28 04/04/2018 23:24 Hospitalization Ordered by Jennifer Antoine MD for Observation. jb4 Preliminary diagnosis is Acute combined systolic (congestive) and diastolic (congestive) heart failure. Bed requested for Telemetry/MedSurg (observation). Status is Observation. Condition is Stable. Problem is new. Symptoms have improved. UTI on Admission? No. kl
--- NOTE | 2018-04-04 23:25 | ER ---
Nurse's Notes [facility] Name: Amy Velasquez Age: 67 yrs Sex: Female : 1950 Arrival Date: 04/04/2018 Time: 19:54 Bed 13 Private MD: Lucho Catalan Diagnosis: Acute combined systolic (congestive) and diastolic (congestive) heart failure Presentation: 04/04 20:00 Presenting complaint: Patient states: that she is having trouble breathing and has a fc fever. Unable to take a deep breath. Home health nurse states that her roomair o2 was 88% and was wheezing bad. Also complaining of sore throat but no cough. Transition of care: patient was not received from another setting of care. Onset of symptoms was April 01, 2018. Risk Assessment: Do you want to hurt yourself or someone else? Patient reports no desire to harm self or others. Care prior to arrival: Medication(s) given: Tylenol, last at 1800. 20:00 Method Of Arrival: Wheelchair fc 20:00 Acuity: BHARTI 3 fc 20:00 Initial Sepsis Screen: Does the patient meet any 2 criteria? No. Patient's initial jb4 sepsis screen is negative. Does the patient have a suspected source of infection? No. Patient's initial sepsis screen is negative. Historical: - Allergies: 20:05 Amitriptyline; fc 20:05 Cipro; fc 20:05 Morphine (rash, Itching); fc 20:05 Phenobarbital; fc - Home Meds: 20:05 amlodipine 5 mg tab 1 tab once daily [Active]; aspirin 81 mg Oral chew 1 tab once daily fc [Active]; Cheratussin AC 10-100 mg/5 mL Oral liqd 10 mL prn [Active]; clonazepam 1 mg Oral tab 1 tab once daily [Active]; furosemide 20 mg Oral tab 1 tab once daily [Active]; gabapentin 400 mg Oral cap 1 cap 3 times per day [Active]; lisinopril 40 mg Oral tab 1 tab twice a day [Active]; metoprolol tartrate 50 mg Oral tab 1 tab once daily [Active]; Nexium 40 mg Oral cpDR 1 cap once daily [Active]; nystatin 100,000 unit/gram Topical crea 3 times per day [Active]; oxycodone-acetaminophen 10-325 mg Oral tab 1 tab every 6 hours for Pain [Active]; prednisone 20 mg Oral tab 1 tab 2 times per day [Active]; sertraline 50 mg Oral tab 3 tabs once daily [Active]; Ventolin Rotahaler/Rotacaps Inhl four times a day [Active]; - PMHx: 20:05 ADD/ADHD; Anxiety; Atrial Fib; CANCER, SKIN; Asthma; COPD; Degenerative disc disease; fc Hernia; Hypertension; CHF; - PSHx: 20:05 Hernia repair; Tubal ligation; Hysterectomy; fc - Immunization history:: Last tetanus immunization: up to date Pneumococcal vaccine is up to date, Flu vaccine is up to date. - Social history:: Smoking status: Patient/guardian denies using tobacco, Patient/guardian denies using alcohol. - Ebola Screening: : Patient negative for fever greater than or equal to 101.5 degrees Fahrenheit, and additional compatible Ebola Virus Disease symptoms Patient denies exposure to infectious person Patient denies travel to an Ebola-affected area in the 21 days before illness onset. Screenin:40 Abuse screen: Denies threats or abuse. Nutritional screening: No deficits noted. jb4 Tuberculosis screening: No symptoms or risk factors identified. Fall Risk IV access (20 points). Ambulatory Aid- Crutches/Cane/Walker (15 pts). Total Omer Fall Scale indicates Low Risk Score (25-44 pts). Fall prevention measures have been instituted. Side Rails Up X 2 Placed close to Nursing Station Frequent Obs/Assesments occuring Family Present and informed to notify staff if they need to leave bedside As available Patient and Family Educated on Fall Prevention Program and strategies. Assessment: 20:40 General: Appears in no apparent distress. uncomfortable, Behavior is cooperative, jb4 anxious. Pain: Complains of pain in chest Pain radiates to back Pain currently is 7 out of 10 on a pain scale. Quality of pain is described as pressure, electrical shocks. Neuro: Level of Consciousness is awake, alert, obeys commands. Cardiovascular: Heart tones S1 S2 present Patient's skin is warm and dry. Rhythm is sinus rhythm. Respiratory: Airway is patent Respiratory effort is even, labored, Respiratory pattern is regular, symmetrical, Breath sounds are clear bilaterally. GI: No signs and/or symptoms were reported involving the gastrointestinal system. : No signs and/or symptoms were reported regarding the genitourinary system. EENT: No signs and/or symptoms were reported regarding the EENT system. Derm: Skin is intact, Skin is pink, warm \T\ dry. Musculoskeletal: Circulation, motion, and sensation intact. 21:45 Reassessment: Patient appears in no apparent distress at this time. Patient and/or jb4 family updated on plan of care and expected duration. Pain level reassessed. Cardiovascular: Patient's skin is warm and dry. Rhythm is sinus rhythm. Respiratory: Airway is patent Respiratory effort is even, labored, Respiratory pattern is regular, symmetrical. 22:45 Reassessment: Patient appears in no apparent distress at this time. Patient and/or jb4 family updated on plan of care and expected duration. Pain level reassessed. Patient is alert, oriented x 3, equal unlabored respirations, skin warm/dry/pink. Cardiovascular: Patient's skin is warm and dry. Rhythm is sinus rhythm. 04/05 00:00 Reassessment: Patient appears in no apparent distress at this time. Patient and/or jb4 family updated on plan of care and expected duration. Pain level reassessed. Patient is alert, oriented x 3, equal unlabored respirations, skin warm/dry/pink. Cardiovascular: Patient's skin is warm and dry. Rhythm is sinus rhythm. 01:00 Reassessment: Patient appears in no apparent distress at this time. Patient and/or jb4 family updated on plan of care and expected duration. Pain level reassessed. Patient is alert, oriented x 3, equal unlabored respirations, skin warm/dry/pink. 02:00 Reassessment: Patient appears in no apparent distress at this time. Patient and/or jb4 family updated on plan of care and expected duration. Pain level reassessed. Patient is alert, oriented x 3, equal unlabored respirations, skin warm/dry/pink. 03:00 Reassessment: Patient appears in no apparent distress at this time. Patient and/or jb4 family updated on plan of care and expected duration. Pain level reassessed. Patient is alert, oriented x 3, equal unlabored respirations, skin warm/dry/pink. Vital Signs: 04/04 20:00 Weight 163.29 kg (R); Height 5 ft. 3 in. (160.02 cm) (R); Pain 7/10; fc 20:05 BP 170 / 77; Pulse 70; Resp 24; Temp 98.5(O); Pulse Ox 93% on R/A; fc 21:30 BP 147 / 79; Pulse 91; Resp 18; Pulse Ox 96% on R/A; jb4 22:00 BP 151 / 96; Pulse 88; Resp 16; Pulse Ox 96% on 2 lpm NC; jb4 23:40 BP 147 / 86; Pulse 86; Resp 17; Pulse Ox 94% on 2 lpm NC; jb4 04/05 01:00 BP 138 / 88; Pulse 83; Resp 16; Pulse Ox 93% on 2 lpm NC; jb4 02:00 BP 127 / 75; Pulse 81; Resp 16; Pulse Ox 95% on 2 lpm NC; jb4 03:00 BP 128 / 80; Pulse 78; Resp 17; Pulse Ox 95% on 2 lpm NC; jb4 04/04 20:00 Body Mass Index 63.77 (163.29 kg, 160.02 cm) ED Course: 04/04 19:54 Patient arrived in ED. es 19:54 Lucho Catalan MD is Private Physician. es 20:00 Arm band placed on Patient placed in an exam room, on a stretcher. fc 20:00 Patient has correct armband on for positive identification. Placed in gown. Bed in low jb4 position. Call light in reach. Side rails up X2. residential monitor on. Pulse ox on. NIBP on. 20:02 Triage completed. fc 20:16 Blayne Crocker NP is PHCP. pm1 20:16 You Dao MD is Attending Physician. pm1 20:37 Errol Najera RN is Primary Nurse. jb4 20:43 XRAY Chest (1 view) In Process Unspecified. EDMS 21:24 Inserted 18 gauge 10 cm midline to right upper basilic vein on first attempt. Line with fc good blood return and flushes well. 23:23 Jennifer Antoine MD is Hospitalizing Provider. pm1 04/05 03:00 No provider procedures requiring assistance completed. Patient admitted, IV remains in jb4 place. Administered Medications: 04/04 20:45 Drug: Albuterol - atroVENT (3:1) (2.5 mg - 0.5 mg) 3 ml Route: Nebulizer; jb4 21:05 Follow up: Response: No adverse reaction jb4 20:45 Drug: predniSONE 60 mg Route: PO; jb4 21:05 Follow up: Response: No adverse reaction jb4 22:10 Not Given (Patient Refused): Lasix 40 mg IVP once jb4 22:10 Drug: Nitro-Bid Ointment 2 % 1 inches Route: Transdermal; Site: anterior chest wall; jb4 22:40 Follow up: Response: No adverse reaction; Pain is decreased jb4 23:45 Drug: Lasix 40 mg Route: IVP; Site: right upper arm; jb4 04/05 00:30 Follow up: Response: No adverse reaction jb4 Outcome: 04/04 23:24 Decision to Hospitalize by Provider. pm1 04/05 03:00 Admitted to Tele accompanied by nurse, via stretcher, room 406, with oxygen, with jb4 chart, Report called to SHAD Swenson Condition: stable Discharge instructions given to patient, Instructed on the need for admit, Demonstrated understanding of instructions. 03:41 Patient left the ED. jb4 Signatures: Dispatcher [employer] Sandra Atkinson Felicia, RN RN Blayne Tim, JOSE ASPHALT PAVER OPERATOR pm1 Errol Najera RN RN jb4
[2018-04-05] MEDS ORDERED: IPRATROPIUM BROM 0.5MG/2.5ML NEB PRN (03:57)
[2018-04-05] MEDS ORDERED: ACETAMINOPHEN 500 MG TAB PO PRN (03:57)
[2018-04-05] MEDS ORDERED: ALBUTEROL 2.5 MG/3 ML NEB SOL NEB PRN (03:57)
[2018-04-05] MEDS ORDERED: ONDANSETRON 4 MG/2 ML VIAL IV PRN (03:57)
[2018-04-05] MEDS ORDERED: POTASSIUM 25 MEQ EFFERV TAB PO ONE (04:01)
[2018-04-05] MEDS ORDERED: POTASSIUM CL SA 10 MEQ TAB PO ONE (04:03)
--- NOTE | 2018-04-05 04:34 | P.HP ---
Certification for Inpatient Patient admitted to: Observation With expected LOS: <2 Midnights Practitioner: I am a practitioner with admitting privileges, knowledge of patient current condition, hospital course, and medical plan of care. Services: Services provided to patient in accordance with Admission requirements found in Title 42 Section 412.3 of the Code of Federal Regulations Patient History Date of Service: 04/05/18 Reason for admission: CHF exacerbation History of Present Illness: Ms Velasquez is a 67 years old woman with multiple medical problems including obesity, HTN, Chronic diastolic CHF, last ECHO 11/09 showing normal LV function wit EF 60-69%, on home oxygen as needed at night, chronic back pain, came to ED complaining of low grade fever and increasing SOB. She denied cough. The patient was evaluated today by home health today, and was found hypoxic, about 88% after she went to the restroom. She also states that her LE are more swollen than usual. Lab work shows normal WBC count, no fever, BP 177/75. CXR shows mild CHF. Allergies amitriptyline HCl [From Elavil] Allergy (Intermediate, Verified 04/05/18 03:22) Nausea/Vomiting ciprofloxacin [From Cipro] Allergy (Intermediate, Verified 04/05/18 03:22) Rash metronidazole Allergy (Verified 04/05/18 03:22) Itching morphine Allergy (Verified 04/05/18 03:22) Itching phenobarbital Allergy (Verified 04/05/18 03:22) Itching/Hives/Rash Home medications list reviewed: Yes Home Medications: Albuterol Inhaler [Ventolin Inhaler*] 2 puff IH Q4H PRN 11/12/17 Aspirin 81 mg PO DAILY 11/12/17 Esomeprazole Mag Trihydrate [Nexium] 1 cap PO DAILY 11/12/17 Furosemide [Lasix*] 40 mg PO DAILY 11/12/17 Gabapentin [Neurontin*] 400 mg PO BID 11/12/17 Metoprolol Tartrate [Lopressor*] 50 mg PO DAILY 11/12/17 Oxycodone HCl/Acetaminophen [Endocet 10-325 mg Tablet] 1 each PO Q4H PRN Sertraline [Zoloft*] 200 mg PO DAILY 11/12/17 clonazePAM [Klonopin*] 1 mg PO BID PRN #50 tab 12/23/17 Budesonide/Formoterol Fumarate [Symbicort 160-4.5 Mcg Inhaler] 2 puff IH BID Lisinopril 40 mg PO BID 01/17/18 - Past Medical/Surgical History Has patient received pneumonia vaccine in the past: No Diabetic: No -: HTN -: COPD -: CHF, diastolic dysfunction -: GERD -: Morbid obesity -: Anxiety -: DDD, DJD lumbar spine, chronic pain -: skin cancer -: History of Liver tumor -: Chronic back pain-Pain management-Dr. Herron -: Depression with anxiety -: Hernia -: Left ovarian tumor removal -: Hysterectomy -: Hernia Repair -: Lymphoma Left leg removed -: Melanoma removed from back Psychosocial/ Personal History: , Disabled, 5 children - Family History Father -: Heart disease, Hypertension, Diabetes, Cancer, Liver disease Mother -: Heart disease, Hypertension, Diabetes, Cancer Sister -: Heart disease, Hypertension, Diabetes Brother -: Hypertension - Social History Smoking Status: Never smoker Alcohol use: No CD- Drugs: No Caffeine use: Yes Place of Residence: Home Review of Systems 10-point ROS is otherwise unremarkable Physical Examination - Vital Signs Temperature: 97.8 F Blood Pressure: 173/79 Pulse: 89 Respirations: 20 Pulse Ox (%): 96 - Physical Exam General: Alert, In no apparent distress HEENT: Atraumatic, PERRLA, Mucous membr. moist/pink, EOMI, Sclerae nonicteric Neck: Supple, 2+ carotid pulse no bruit, No LAD, Without JVD or thyroid abnormality Respiratory: Clear to auscultation bilaterally, Diminished Cardiovascular: Normal S1 S2, No gallops Gastrointestinal: Normal bowel sounds, No tenderness Musculoskeletal: No tenderness, Swelling (LE 1+ bilateral) Integumentary: No rashes Neurological: Normal speech, Normal strength at 5/5 x4 extr, Normal tone, Normal affect Lymphatics: No axilla or inguinal lymphadenopathy - Studies Laboratory Data (last 24 hrs) 04/04/18 21:00: PT 12.4, INR 1.05 04/04/18 21:00: WBC 10.5, Hgb 12.4, Hct 38.6, Plt Count 227 04/04/18 21:00: Sodium 143, Potassium 3.6, BUN 9, Creatinine 0.71, Glucose 97, Magnesium 2.0, Total Bilirubin 0.3, AST 17, ALT 22, Alkaline Phosphatase 86 Microbiology Data (last 24 hrs): 04/04/18 20:32 Nasopharnyx Influenza Type A Antigen Screen - Final 04/04/18 20:32 Nasopharnyx Influenza Type B Antigen Screen - Final 04/04/18 20:32 Throat Group A Streptococcus Rapid Screen - Final Assessment and Plan - Problems (Diagnosis) (1) Acute on chronic diastolic CHF (congestive heart failure) Onset Date: 07/26/17 Current Visit: No Status: Acute (2) Dyspnea Onset Date: 06/19/17 Current Visit: No Status: Acute Qualifiers: Dyspnea type: shortness of breath Qualified Code(s): R06.02 - Shortness of breath; R06.00 - Dyspnea, unspecified; R06.01 - Orthopnea (3) COPD (chronic obstructive pulmonary disease) Onset Date: 03/26/17 Current Visit: No Status: Chronic Qualifiers: COPD type: unspecified COPD Qualified Code(s): J44.9 - Chronic obstructive pulmonary disease, unspecified (4) Obesity Current Visit: No Status: Chronic Qualifiers: Obesity type: unspecified obesity type Obesity classification: adult class 3 (BMI >= 40) Body mass index: BMI 60.0-69.9 - Plan Will admit the patient due to acute on chronic diastolic CHF, continue IV lasix. She may go home in AM if symptoms improved. - Advance Directives Does patient have a Living Will: No Does patient have a Durable POA for Healthcare: No - Code Status/Comfort Care Code Status Assessed: Yes Code Status: Full Code
[2018-04-05] MEDS: Oxycodone HCl/Acetaminophen 1 TAB TAB PO PRN ×4 (05:03→20:05)
[2018-04-05 05:41] LABS: Urine Appearance CLEAR; Urine Bilirubin NEGATIVE (NEG); Urine Blood NEGATIVE (NEG); Urine Color YELLOW; Urine Glucose NEGATIVE (NEG); Urine Protein NEGATIVE (NEG); Urine Specific Gravity <=1.005 (1.005-1.030); Urine Urobilinogen 0.2 mg/dL (0.2-1.0); Urine pH 5.5 (5.0-7.0)
[2018-04-05 05:48] LABS: Urine Microscopic Reflex ORDER UMIC
[2018-04-05 06:16] LABS: Urine Bacteria 20-50 /HPF (<20); Urine Culture Reflex Order REFLEXED; Urine RBC NONE SEEN /HPF (NONE SEEN)
--- NOTE | 2018-04-05 06:37 | EKG ---
Test Date: 2018-04-04 Test Time: 20:22:04 Cartography Technician: GIACOMO MEASUREMENT RESULTS: Intervals: Rate: 71 [place]: 188 QRSD: 70 QT: 368 QTc: 399 [place]: P: 75 NJ: 188 QRS: 12 T: 80 INTERPRETIVE STATEMENTS: Normal sinus rhythm Anterior infarct, age undetermined Abnormal ECG Compared to ECG 01/17/2018 18:30:30 No significant changes Electronically Signed On 04-05-18 06:37:20 SMALL ELECTRIC ENGINE TECHNICIAN by Krystian Charles
[2018-04-05] MEDS ORDERED: PNEUMOCOCCAL VACCINE 0.5 ML IMVAC ONE (08:00)
[2018-04-05] MEDS: FUROSEMIDE 40 MG/4 ML VIAL IV SCH (09:36)
[2018-04-05] MEDS: ENOXAPARIN 40 MG/0.4 ML SQ SCH (09:36)
--- NOTE | 2018-04-05 14:11 | PN ---
Date of Progress Note: 04/05/2018 Subjective: The patient is seen and examined. Chart reviewed, and case discussed with RN. The lakisha ent is still having some shortness of breath. Medications: List reviewed. Code Status: Full. Physical Examination: Vital signs: Temperature 97.5, heart rate 69, blood pressure 179/74, respirations 20, O2 of 98% on 2 L via nasal cannula. General: Awake, alert, oriented x3. An elderly female, morbidly obese, ill-appearing. CV: S1 and S2. Regular rate and rhythm. Peripheral pulses weak bilaterally. Respiratory: Diminished breath sounds. Some wheezing heard. No tachypnea. Gastrointestinal: Abdomen is soft, nontender, nondistended. Positive bowel sounds. Obese. Extremities: No clubbing or cyanosis. The patient has lower extremity edema. Neurologic: Nonfocal. Laboratory Data: Troponin less than 0.02 x3. Blood culture is pending. Influenza screen negative. Group A strep screen is also negative. Chest x-ray personally reviewed, shows mild CHF. Assessment: A 67-year-old female with: 1.Yoxqa-hk-cibqutv diastolic heart failure, improving. Continue diuresis. 2.Dyspnea. The patient is on supplemental oxygen, usually uses 2 L at home. 3.Chronic respiratory failure. The patient on home oxygen. 4.Chronic obstructive pulmonary disease, chronic bronchitis. We will continue nebulizer treatments. 5.Obesity, morbid, BMI 63. 6.Essential hypertension, stable. 7.Gastroesophageal reflux disease without esophagitis. Continue PPI. 8.Generalized anxiety disorder. 9.Generalized osteoarthritis. 10.Gastrointestinal and deep venous thrombosis prophylaxis addressed. Plan: Continue diuretics. Likely discharge in a.m. if continues to improve. /MODL Voice ID: [id number] Report ID: [id number]
[2018-04-05] MEDS: METOPROLOL TAR 50 MG TAB PO SCH (14:52)
[2018-04-05 15:20] VITALS: O2SAT 98
[2018-04-05] MEDS: clonazePAM 1 MG TAB PO PRN (21:02)
[2018-04-05] MEDS: LISINOPRIL 20 MG TAB PO SCH (21:02)
[2018-04-05] MEDS: GABAPENTIN 400 MG CAP PO SCH (21:02)
[2018-04-06] MEDS: Oxycodone HCl/Acetaminophen 1 TAB TAB PO PRN ×3 (01:13→10:31)
[2018-04-06] MEDS ORDERED: PANTOPRAZOLE 40MG TABLET PO SCH (06:30)
[2018-04-06 07:02] LABS: Absolute Lymphocytes (CBC) 2.6 K/uL (0.7-4.9); Absolute Monocytes 0.9 K/uL (0.1-1.3); Absolute Neutrophil 5.3 K/uL (1.8-8.0); Basophils % 0.3 % (0-1.3); Eosinophils % 1.2 % (0-4.4); Hematocrit 37.7 % (36.0-45.0); Lymphocytes % 29.5 % (15.3-44.8); MPV 7.5 fL (7.6-11.3); Monocytes % 9.7 % (3.3-12.3)
[2018-04-06 07:17] VITALS: BMI 65.4
[2018-04-06 07:23] LABS: Potassium 3.6 mmol/L (3.5-5.1)
[2018-04-06 08:18] VITALS: BP 131/59; TEMP 97.1
[2018-04-06] MEDS ORDERED: SERTRALINE HCL 100 MG TAB PO SCH (09:00)
[2018-04-06] MEDS ORDERED: ASPIRIN 81 MG CHEWABLE TABLET PO SCH (09:00)
[2018-04-06] MEDS: ENOXAPARIN 40 MG/0.4 ML SQ SCH (09:21)
[2018-04-06] MEDS: METOPROLOL TAR 50 MG TAB PO SCH (09:22)
[2018-04-06] MEDS: FUROSEMIDE 40 MG/4 ML VIAL IV SCH (09:22)
[2018-04-06] MEDS: GABAPENTIN 400 MG CAP PO SCH (09:22)
[2018-04-06] MEDS: clonazePAM 1 MG TAB PO PRN (09:22)
[2018-04-06] MEDS: LISINOPRIL 20 MG TAB PO SCH (09:22)
--- NOTE | 2018-04-07 12:19 | DS ---
Date of Discharge: 04/06/2018 Discharge Diagnoses: 1.Acute on chronic diastolic heart failure. 2.Dyspnea. 3.Chronic obstructive pulmonary disease, chronic bronchitis. 4.Morbid obesity. Body mass index is 65. Hospital Course: The patient is a 67-year-old female, who comes in with shortness of breath. The valerie mack was thought to have acute on chronic diastolic heart failure. Her recent echocardiogram showed an EF of 60-69%, The patient is home O2 dependent secondary to her COPD and CHF. The patient's ches t x-ray shows some mild CHF. Her blood pressure was uncontrolled. She was also hypoxic. She was di uresed and responded well to diuretics. Her blood pressure improved. Her breathing also improved. Her cardiac enzymes were negative. The patient otherwise remained stable. Her cultures did not show any growth. Influenza screen was also negative. She did not have any further temperature spikes. She was not septic. Procalcitonin and lactate were negative. The patient was then cleared for disch arge. She was back to her baseline. She was sent home in a stable condition. She lives with her so n. Activity: Fall precautions. No strenuous activity. Medications: As per medication reconciliation list. Followup: Follow up with primary care physician in 2-3 days. Return to ER for worsening condition. Diet: Low-sodium, fluid-restricted diet. Physical Examination: General: Awake, alert, oriented x3. Morbidly obese, elderly female. CV: S1, S2. Peripheral pulses present. Respiratory: Moving air well bilaterally. Abdomen: Abdomen is soft, nontender, nondistended. Positive bowel sounds. Extremities: No clubbing, cyanosis, or edema. Neurologic: Nonfocal. SA/MODL Voice ID: [id number] Report ID: [id number]
== END 2018-04-06 12:16 | disposition home or self-care (01) ==
LOC: ER 19:52 → ERHOLD 04-05 01:15 → 4TH 04-05 03:02
PROVIDERS: ADMIT Internal Medicine; ATTEND Internal Medicine
DX: I11.0 Hypertensive heart disease with heart failure (principal); I50.33 Acute on chronic diastolic (congestive) heart failure; J44.9 Chronic obstructive pulmonary disease, unspecified; E66.01 Morbid (severe) obesity due to excess calories; Z68.44 Body mass index [BMI] 60.0-69.9, adult; J96.10 Chronic respiratory failure, unspecified whether with hypoxia or hypercapnia; K21.9 Gastro-esophageal reflux disease without esophagitis; M15.9 Polyosteoarthritis, unspecified
CPT/HCPCS: 36415 ×2; 71045; 80048 ×2; 80076; 83605; 83735; 83880; 84145; 84484 ×4; 85025 ×2; 85610; 87040 ×2; 87070; 87077; 87081; 87086; 87088; 87186; 87804 ×2; 93005; 94640; 94760 ×4; 96374; 99285; G0378 ×2; J1650 ×2; J1940 ×3; J2405; 81003; 81015; J7512

== ENCOUNTER 2018-04-15 11:11 | Observation (INO) | payer OTHER ==
[2018-04-15] MEDS ORDERED: METHYLPREDNISOLONE 125 MG INJ ONE (11:48)
--- NOTE | 2018-04-15 12:24 | RAD REPORT ---
EXAM DESCRIPTION: RAD - Chest Single View - 04/15/2018 12:17 pm CLINICAL HISTORY: DYSPNEA Chest pain. COMPARISON: Chest Single View dated 04/04/2018; Chest Single View dated 01/22/2018; Chest Pa And Lat (2 Views) dated 01/20/2018; Chest Single View dated 01/17/2018 FINDINGS: Portable technique limits examination quality. Mild interstitial pulmonary edema is seen. Heart is moderately enlarged. No displaced fractures.Aorti c atherosclerosis. IMPRESSION: Mild CHF versus volume overload.
[2018-04-15 12:49] LABS: Absolute Lymphocytes (CBC) 1.7 K/uL (0.7-4.9); Absolute Monocytes 0.8 K/uL (0.1-1.3); Absolute Neutrophil 11.3 K/uL (1.8-8.0); Basophils % 0.4 % (0-1.3); Eosinophils % 0.5 % (0-4.4); Hematocrit 45.7 % (36.0-45.0); Lymphocytes % 12.1 % (15.3-44.8); MPV 7.8 fL (7.6-11.3); Monocytes % 5.7 % (3.3-12.3); RBC Red Blood Cell Count 5.31 M/uL (3.86-4.86)
[2018-04-15 12:51] LABS: Blood Morphology Comment NOT SEEN (NOT SEEN); Platelet Estimate ADEQ; Urine White Blood Cell Casts OK
[2018-04-15] MEDS ORDERED: LEVALBUTEROL 1.25 MG/3 ML NEB ONE ×2 (13:01→13:03)
[2018-04-15 13:04] LABS: BUN Blood Urea Nitrogen 14 mg/dL (7-18); Bicarbonate 31 mmol/L (21-32); Glucose Level 105 mg/dL (74-106); NT PRO-BNP 806 pg/mL (<125); Potassium 3.2 mmol/L (3.5-5.1); Sodium Level 142 mmol/L (136-145); Troponin (Emerg Dept Use Only) < 0.02 ng/mL (0.0-0.045)
--- NOTE | 2018-04-15 13:24 | EKG ---
Test Date: 2018-04-15 Test Time: 11:34:49 [employer] Barista: VINNIE MEASUREMENT RESULTS: Intervals: Rate: 84 NH: 164 QRSD: 84 QT: 384 QTc: 453 [place]: P: 64 NH: 164 QRS: -11 T: 77 INTERPRETIVE STATEMENTS: Sinus rhythm with premature atrial complexes Otherwise normal ECG Compared to ECG 04/04/2018 20:22:04 Atrial premature complex(es) now present Myocardial infarct finding no longer present Electronically Signed On 04-15-18 13:23:56 RETAIL ACCOUNT SPECIALIST by Pollo Pinto
[2018-04-15] MEDS ORDERED: ONDANSETRON 4 MG/2 ML VIAL ONE (13:31)
[2018-04-15] MEDS ORDERED: HYDROCODONE/APAP 10/325 TAB ONE (13:36)
--- NOTE | 2018-04-15 14:23 | ER ---
Nurse's Notes [facility] Name: Amy Velasquez Age: 67 yrs Sex: Female : 1950 Arrival Date: 04/15/2018 Time: 11:13 Bed 4 Private MD: Lucho Catalan Diagnosis: Pulmonary edema;Chronic obstructive pulmonary disease, unspecified;Dyspnea, unspecified Presentation: 04/15 11:32 Presenting complaint: Patient states: Seen at PCP today and sent to ED for breathing ph difficulty and high heart rate, pt c/o SOB and L sided chest pain that radiates to back, reports hx of COPD and A-fib. Transition of care: patient was not received from another setting of care. Onset of symptoms was April 15, 2018. Risk Assessment: Do you want to hurt yourself or someone else? Patient reports no desire to harm self or others. Initial Sepsis Screen: Does the patient meet any 2 criteria? RR > 20 per min. 11:32 Method Of Arrival: Wheelchair ph 11:32 Acuity: BHARTI 3 ph Historical: - Allergies: 11:35 Amitriptyline; ph 11:35 Cipro; ph 11:35 Morphine (rash, Itching); ph 11:35 Phenobarbital; ph - Home Meds: 11:35 amlodipine 5 mg tab 1 tab once daily [Active]; aspirin 81 mg Oral chew 1 tab once daily ph [Active]; Cheratussin AC 10-100 mg/5 mL Oral liqd 10 mL PRN [Active]; clonazepam 1 mg Oral tab 1 tab once daily [Active]; furosemide 20 mg Oral tab 1 tab once daily [Active]; gabapentin 400 mg Oral cap 1 cap 3 times per day [Active]; lisinopril 40 mg Oral tab 1 tab twice a day [Active]; metoprolol tartrate 50 mg Oral tab 1 tab once daily [Active]; Nexium 40 mg Oral cpDR 1 cap once daily [Active]; nystatin 100,000 unit/gram Topical crea 3 times per day [Active]; oxycodone-acetaminophen 10-325 mg Oral tab 1 tab every 6 hours for Pain [Active]; prednisone 20 mg Oral tab 1 tab 2 times per day [Active]; sertraline 50 mg Oral tab 3 tabs once daily [Active]; Ventolin Rotahaler/Rotacaps Inhl four times a day [Active]; - PMHx: 11:35 ADD/ADHD; Anxiety; Asthma; Atrial Fib; CANCER, SKIN; CHF; COPD; Degenerative disc ph disease; Hernia; Hypertension; - PSHx: 11:35 Hernia repair; Tubal ligation; Hysterectomy; ph - Immunization history:: Adult Immunizations unknown. - Ebola Screening: : No symptoms or risks identified at this time. - Family history:: not pertinent. - Social history:: Smoking status: Patient/guardian denies using tobacco. - Hospitalizations: : No recent hospitalization is reported. Screenin:15 Abuse screen: Denies threats or abuse. Denies injuries from another. Nutritional hb screening: No deficits noted. Tuberculosis screening: No symptoms or risk factors identified. Fall Risk Total Omer Fall Scale indicates Low Risk Score (25-44 pts). Fall prevention measures have been instituted. Side Rails Up X 2 Frequent Obs/Assesments occuring Family Present and informed to notify staff if they need to leave bedside As available Patient and Family Educated on Fall Prevention Program and strategies. Assessment: 11:30 General: Appears in no apparent distress. Behavior is calm, cooperative. Pain: Denies hb pain. Neuro: Level of Consciousness is awake, alert, obeys commands, Oriented to person, place, time, situation. Cardiovascular: Heart tones S1 S2 present Capillary refill < 3 seconds Patient's skin is warm and dry. Rhythm is sinus tachycardia. Respiratory: Airway is patent Trachea midline Respiratory effort is mildly labored Respiratory pattern is tachypnea Breath sounds with wheezes. GI: No signs and/or symptoms were reported involving the gastrointestinal system. : No signs and/or symptoms were reported regarding the genitourinary system. EENT: No signs and/or symptoms were reported regarding the EENT system. Derm: No signs and/or symptoms reported regarding the dermatologic system. Skin is pink, warm \T\ dry. Musculoskeletal: No signs and/or symptoms reported regarding the musculoskeletal system. 12:30 Reassessment: Patient appears in no apparent distress at this time. No changes from hb previously documented assessment. Patient and/or family updated on plan of care and expected duration. Pain level reassessed. 13:30 Reassessment: Patient appears in no apparent distress at this time. No changes from hb previously documented assessment. Patient and/or family updated on plan of care and expected duration. Pain level reassessed. 14:00 Reassessment: Patient appears in no apparent distress at this time. No changes from hb previously documented assessment. Patient and/or family updated on plan of care and expected duration. Pain level reassessed. 15:00 Reassessment: Patient appears in no apparent distress at this time. No changes from hb previously documented assessment. Patient and/or family updated on plan of care and expected duration. Pain level reassessed. 16:00 Reassessment: Patient appears in no apparent distress at this time. No changes from hb previously documented assessment. Patient and/or family updated on plan of care and expected duration. Pain level reassessed. Vital Signs: 11:35 BP 148 / 98; Pulse 83; Resp 36; Temp 97.8; Pulse Ox 94% on R/A; Weight 167.83 kg; ph Height 5 ft. 4 in. (162.56 cm); Pain 7/10; 12:39 BP 169 / 92; Pulse 82; Resp 15; Pulse Ox 96% ; sv 13:54 BP 161 / 94; Pulse 115; Resp 22; Pulse Ox 95% ; sv 14:27 BP 169 / 93; Pulse 117; Resp 23; Pulse Ox 95% ; sv 14:28 Pain 6/10; sv 15:30 BP 156 / 86; Pulse 99; Resp 21; Pulse Ox 97% on R/A; hb 16:15 BP 177 / 95; Pulse 99; Resp 21; Pulse Ox 97% on R/A; hb 11:35 Body Mass Index 63.51 (167.83 kg, 162.56 cm) ph ED Course: 11:13 Patient arrived in ED. sb2 11:13 Lucho Catalan MD is Private Physician. sb2 11:20 Francis Mcintyre MD is Attending Physician. rn 11:34 Triage completed. ph 11:35 Arm band placed on Patient placed in an exam room, on a stretcher, on threat monitoring analyst, ph on pulse oximetry. 11:43 EKG done, by specimen technician. reviewed by Francis Mcintyre MD. dt2 11:45 Patient has correct armband on for positive identification. Placed in gown. Bed in low hb position. Call light in reach. Side rails up X2. 12:08 Inserted saline lock: 24 gauge in left ,using aseptic technique. shoulder. sv 12:14 X-ray completed. Portable x-ray completed in exam room. jb2 12:18 XRAY CXR (1 view) In Process Unspecified. EDMS 12:48 Jeanne Zuniga, RN is Primary Nurse. 14:22 Geovanna Ca MD is Hospitalizing Provider. rn Administered Medications: 12:08 Drug: SOLU-Medrol 125 mg Route: IVP; Site: left upper arm; sv 13:01 Follow up: Response: No adverse reaction hb 12:35 Drug: Xopenex (3) 1.25 mg Route: Inhalation; hb 13:32 Follow up: Response: No adverse reaction hb 13:31 Drug: [place] 10 mg-325 mg 1 tabs Route: PO; hb 14:28 Follow up: Pain 6/10 Adult; Response: No adverse reaction sv Outcome: 14:23 Decision to Hospitalize by Provider. rn 16:32 Patient left the ED. sv Signatures: Dispatcher [employer] EDND Elva Mclaughlin RN RN Elbert Jiménez jb2 Francis Mcintyre MD MD rn Hall, Patricia, RN RN Jeanne Zuniga, RN Elba Rossi sb2 Fransisca Michelle dt2
--- NOTE | 2018-04-15 14:24 | EDPHYS ---
Physician Documentation [facility] Name: Amy Velasquez Age: 67 yrs Sex: Female : 1950 Arrival Date: 04/15/2018 Time: 11:13 Bed 4 Private MD: Lucho Catalan ED Physician Francis Mcintyre HPI: 04/15 11:42 This 67 yrs old Female presents to ER via Wheelchair with complaints of rn Breathing Difficulty. 11:42 The patient has shortness of breath at rest. Onset: The symptoms/episode began/occurred rn 3 day(s) ago. Duration: The symptoms are continuous. The patient's shortness of breath is aggravated by exertion, light activity, talking, walking. Severity of symptoms: At their worst the symptoms were moderate in the emergency department the symptoms are unchanged. The patient has experienced similar episodes in the past. The patient has not recently seen a physician. Reports went to pcp office today for sob, sent here because of elevated HR and dyspnea.. Historical: - Allergies: 11:35 Amitriptyline; ph 11:35 Cipro; ph 11:35 Morphine (rash, Itching); ph 11:35 Phenobarbital; ph - Home Meds: 11:35 amlodipine 5 mg tab 1 tab once daily [Active]; aspirin 81 mg Oral chew 1 tab once daily ph [Active]; Cheratussin AC 10-100 mg/5 mL Oral liqd 10 mL PRN [Active]; clonazepam 1 mg Oral tab 1 tab once daily [Active]; furosemide 20 mg Oral tab 1 tab once daily [Active]; gabapentin 400 mg Oral cap 1 cap 3 times per day [Active]; lisinopril 40 mg Oral tab 1 tab twice a day [Active]; metoprolol tartrate 50 mg Oral tab 1 tab once daily [Active]; Nexium 40 mg Oral cpDR 1 cap once daily [Active]; nystatin 100,000 unit/gram Topical crea 3 times per day [Active]; oxycodone-acetaminophen 10-325 mg Oral tab 1 tab every 6 hours for Pain [Active]; prednisone 20 mg Oral tab 1 tab 2 times per day [Active]; sertraline 50 mg Oral tab 3 tabs once daily [Active]; Ventolin Rotahaler/Rotacaps Inhl four times a day [Active]; - PMHx: 11:35 ADD/ADHD; Anxiety; Asthma; Atrial Fib; CANCER, SKIN; CHF; COPD; Degenerative disc ph disease; Hernia; Hypertension; - PSHx: 11:35 Hernia repair; Tubal ligation; Hysterectomy; ph - Immunization history:: Adult Immunizations unknown. - Ebola Screening: : No symptoms or risks identified at this time. - Family history:: not pertinent. - Social history:: Smoking status: Patient/guardian denies using tobacco. - Hospitalizations: : No recent hospitalization is reported. ROS: 11:42 Constitutional: Negative for fever, chills, and weight loss, Eyes: Negative for injury, rn pain, redness, and discharge, Neck: Negative for injury, pain, and swelling, Cardiovascular: Negative for chest pain, palpitations, and edema, Respiratory: + sob and cough Abdomen/GI: Negative for abdominal pain, nausea, vomiting, diarrhea, and constipation, MS/Extremity: Negative for injury and deformity, Skin: Negative for injury, rash, and discoloration, Neuro: Negative for headache, weakness, numbness, tingling, and seizure. Exam: 11:42 Constitutional: Overweight female with moderate respiratory distress Head/Face: rn Normocephalic, atraumatic. ENT: no stridor, MMM Cardiovascular: Regular rate and rhythm with a normal S1 and S2. No gallops, murmurs, or rubs. Normal PMI, no JVD. No pulse deficits. Respiratory: + faint exp wheezing, + tachypnea without retractions, speaking 2-3 word sentences Abdomen/GI: Soft, non-tender, with normal bowel sounds. No distension or tympany. No guarding or rebound. No evidence of tenderness throughout. MS/ Extremity: Pulses equal, no cyanosis. Neurovascular intact. Full, normal range of motion. Equal circumference. + bilateral non-pitting edema Neuro: Awake and alert, GCS 15, oriented to person, place, time, and situation. Cranial nerves II-XII grossly intact. Motor strength 5/5 in all extremities. Sensory grossly intact. Cerebellar exam normal. Normal gait. 12:41 ECG was reviewed by the Attending Physician. rn Vital Signs: 11:35 BP 148 / 98; Pulse 83; Resp 36; Temp 97.8; Pulse Ox 94% on R/A; Weight 167.83 kg; ph Height 5 ft. 4 in. (162.56 cm); Pain 7/10; 12:39 BP 169 / 92; Pulse 82; Resp 15; Pulse Ox 96% ; sv 13:54 BP 161 / 94; Pulse 115; Resp 22; Pulse Ox 95% ; sv 14:27 BP 169 / 93; Pulse 117; Resp 23; Pulse Ox 95% ; sv 14:28 Pain 6/10; sv 15:30 BP 156 / 86; Pulse 99; Resp 21; Pulse Ox 97% on R/A; hb 16:15 BP 177 / 95; Pulse 99; Resp 21; Pulse Ox 97% on R/A; hb 11:35 Body Mass Index 63.51 (167.83 kg, 162.56 cm) ph MDM: 11:20 Patient medically screened. rn 14:21 Differential diagnosis: Bronchitis CHF exacerbation, Chronic Obstructive Pulmonary rn Disease Myocardial Infarction pneumonia, Pneumothorax pulmonary edema. Data reviewed: vital signs, nurses notes, lab test result(s), EKG, radiologic studies, plain films, and as a result, I will admit patient. Counseling: I had a detailed discussion with the patient and/or guardian regarding: the historical points, exam findings, and any diagnostic results supporting the discharge/admit diagnosis, lab results, radiology results, the need for further work-up and treatment in the hospital. Response to treatment: the patient's symptoms have mildly improved after treatment, and as a result, I will admit patient. Admission orders: after a detailed discussion of the patient's condition and case, the admit orders are written by me. ED course: Pt with mild improvement, able to eat, but still winded and tachycardic, admitted to Dr. Ca for further care COPD/CHF exacerbation.. 04/15 11:37 Order name: Blood Culture Adult (2) rn 04/15 11:37 Order name: BMP; Complete Time: 13:20 rn 04/15 11:37 Order name: CBC with Diff; Complete Time: 13:20 rn 04/15 11:37 Order name: NT PRO-BNP; Complete Time: 13:20 rn 04/15 11:37 Order name: Troponin (emerg Dept Use Only); Complete Time: 13:20 rn 04/15 12:52 Order name: CBC Smear Scan; Complete Time: 13:20 EDMS 04/15 11:37 Order name: XRAY CXR (1 view); Complete Time: 12:35 rn 04/15 11:37 Order name: EKG; Complete Time: 11:38 rn 04/15 11:37 Order name: Cardiac monitoring; Complete Time: 12:49 rn 04/15 11:37 Order name: EKG - Nurse/Tech; Complete Time: 12:49 rn 04/15 11:37 Order name: IV Saline Lock; Complete Time: 12:49 rn 04/15 11:37 Order name: Labs collected and sent; Complete Time: 12:49 rn 04/15 11:37 Order name: O2 Per Protocol; Complete Time: 12:49 rn 04/15 11:37 Order name: O2 Sat Monitoring; Complete Time: 12:49 rn EC:41 Rate is 84 beats/min. Rhythm is regular. QRS [place] is Normal. [place] interval is normal. QRS rn interval is normal. QT interval is normal. No Q waves. T waves are Normal. No ST changes noted. Clinical impression: Normal ECG. Interpreted by me. Administered Medications: 12:08 Drug: SOLU-Medrol 125 mg Route: IVP; Site: left upper arm; sv 13:01 Follow up: Response: No adverse reaction hb 12:35 Drug: Xopenex (3) 1.25 mg Route: Inhalation; hb 13:32 Follow up: Response: No adverse reaction hb 13:31 Drug: [place] 10 mg-325 mg 1 tabs Route: PO; hb 14:28 Follow up: Pain 6/10 Adult; Response: No adverse reaction sv Disposition: 04/15/18 14:23 Hospitalization ordered by Geovanna Ca for Inpatient Admission. Preliminary diagnosis are Pulmonary edema, Chronic obstructive pulmonary disease, unspecified, Dyspnea, unspecified. - Bed requested for Telemetry/MedSurg (Inpatient). - Status is Inpatient Admission. sv - Condition is Stable. - Problem is new. - Symptoms have improved. UTI on Admission? No Signatures: Dispatcher [employer] EDDelisa Diaz Stephanie, RN Francis Menchaca MD MD rn Hall, Patricia, RN RN Jeanne Zuniga RN RN Corrections: (The following items were deleted from the chart) 15:21 14:23 Hospitalization Ordered by Geovanna Ca MD for Inpatient Admission. Preliminary bd diagnosis is Pulmonary edema; Chronic obstructive pulmonary disease, unspecified; Dyspnea, unspecified. Bed requested for Telemetry/MedSurg (Inpatient). Status is Inpatient Admission. Condition is Stable. Problem is new. Symptoms have improved. UTI on Admission? No. rn 16:32 15:21 04/15/2018 14:23 Hospitalization Ordered by Geovanna Ca MD for Inpatient sv Admission. Preliminary diagnosis is Pulmonary edema; Chronic obstructive pulmonary disease, unspecified; Dyspnea, unspecified. Bed requested for Telemetry/MedSurg (Inpatient). Status is Inpatient Admission. Condition is Stable. Problem is new. Symptoms have improved. UTI on Admission? No. bd
[2018-04-15] MEDS ORDERED: FENTANYL CITR 100 MCG/2 ML IV ONE (16:05)
[2018-04-15] MEDS ORDERED: ACETAMINOPHEN 500 MG TAB PO PRN (16:41)
[2018-04-15] MEDS ORDERED: ONDANSETRON 4 MG/2 ML VIAL IV PRN (16:41)
--- NOTE | 2018-04-15 17:48 | P.HP ---
Certification for Inpatient Patient admitted to: Observation With expected LOS: <2 Midnights Patient will require the following post-hospital care: Home Health Services Practitioner: I am a practitioner with admitting privileges, knowledge of patient current condition, hospital course, and medical plan of care. Services: Services provided to patient in accordance with Admission requirements found in Title 42 Section 412.3 of the Code of Federal Regulations Patient History Date of Service: 04/15/18 Reason for admission: SOB History of Present Illness: Pt is a 67 yo F with PMHx of COPD, CHF who was recently discharged from the hospital for respiratory distress. Patient comes in with worsening SOB, cough with sputum production. Low grade fever. No ill contacts. No chest pain. Patient does report some anxiety. Pts symptoms are constant, moderate and progressively worsening. In the ER pts workup showed to be tachycardic, tachypneic BNP elevated. CXR showed pulmonary edema. WBC 13.8. Referred for admission. Allergies amitriptyline HCl [From Elavil] Allergy (Intermediate, Verified 04/05/18 03:22) Nausea/Vomiting ciprofloxacin [From Cipro] Allergy (Intermediate, Verified 04/05/18 03:22) Rash metronidazole Allergy (Verified 04/05/18 03:22) Itching morphine Allergy (Verified 04/05/18 03:22) Itching phenobarbital Allergy (Verified 04/05/18 03:22) Itching/Hives/Rash Home medications list reviewed: Yes Home Medications: Albuterol Inhaler [Ventolin Inhaler*] 2 puff IH Q4H PRN 11/12/17 Aspirin 81 mg PO DAILY 11/12/17 Esomeprazole Mag Trihydrate [Nexium] 1 cap PO DAILY 11/12/17 Furosemide [Lasix*] 40 mg PO DAILY 11/12/17 Gabapentin [Neurontin*] 400 mg PO BID 11/12/17 Metoprolol Tartrate [Lopressor*] 50 mg PO DAILY 11/12/17 Oxycodone HCl/Acetaminophen [Endocet 10-325 mg Tablet] 1 each PO Q4H PRN Sertraline [Zoloft*] 200 mg PO DAILY 11/12/17 clonazePAM [Klonopin*] 1 mg PO BID PRN #50 tab 12/23/17 Budesonide/Formoterol Fumarate [Symbicort 160-4.5 Mcg Inhaler] 2 puff IH BID Lisinopril 40 mg PO BID 01/17/18 predniSONE [Deltasone*] 10 mg PO BID #14 tab 04/06/18 - Past Medical/Surgical History Diabetic: No -: HTN -: COPD -: CHF, diastolic dysfunction -: GERD -: Morbid obesity -: Anxiety -: DDD, DJD lumbar spine, chronic pain -: skin cancer -: History of Liver tumor -: Chronic back pain-Pain management-Dr. Herron -: Depression with anxiety -: Hernia -: Left ovarian tumor removal -: Hysterectomy -: Hernia Repair -: Lymphoma Left leg removed -: Melanoma removed from back Psychosocial/ Personal History: , Disabled, 5 children - Family History Father -: Heart disease, Hypertension, Diabetes, Cancer, Liver disease Mother -: Heart disease, Hypertension, Diabetes, Cancer Sister -: Heart disease, Hypertension, Diabetes Brother -: Hypertension - Social History Smoking Status: Former smoker Alcohol use: No CD- Drugs: No Caffeine use: Yes Review of Systems 10-point ROS is otherwise unremarkable Respiratory: As per HPI Physical Examination - Vital Signs Temperature: 97.8 F Blood Pressure: 177/95 Pulse: 99 Respirations: 21 - Physical Exam General: Alert, Oriented x3, Acute distress, Obese HEENT: Atraumatic, PERRLA, Mucous membr. moist/pink, EOMI, Sclerae nonicteric Neck: Supple, 2+ carotid pulse no bruit Respiratory: Diminished, Expiratory wheezes, Other (tachypneic ) Cardiovascular: Normal pulses, Regular rate/rhythm, Normal S1 S2, Edema Gastrointestinal: Normal bowel sounds, Soft and benign, Non-distended, No tenderness Musculoskeletal: No clubbing, No tenderness Integumentary: No rashes, No erythema Neurological: Normal speech, Normal strength at 5/5 x4 extr, Normal tone, Cranial nerves 3-12 intact, Normal affect - Studies Laboratory Data (last 24 hrs) 04/15/18 12:28: WBC 13.8 H D, Hgb 14.5, Hct 45.7 H D, Plt Count 286 04/15/18 12:28: Sodium 142, Potassium 3.2 L, BUN 14, Creatinine 0.92, Glucose 105 Imagings Data: CXR: CHF pattern Assessment and Plan - Problems (Diagnosis) (1) Acute on chronic diastolic CHF (congestive heart failure) Onset Date: 07/26/17 Current Visit: No Status: Acute (2) COPD with acute exacerbation Onset Date: 01/20/18 Current Visit: No Status: Acute (3) Dyspnea Onset Date: 04/23/14 Current Visit: No Status: Acute Qualifiers: Dyspnea type: shortness of breath Qualified Code(s): R06.02 - Shortness of breath; R06.00 - Dyspnea, unspecified; R06.01 - Orthopnea (4) Atrial fibrillation Onset Date: 11/13/17 Current Visit: No Status: Chronic Qualifiers: Atrial fibrillation type: chronic Qualified Code(s): I48.2 - Chronic atrial fibrillation (5) Chronic back pain Onset Date: 03/26/17 Current Visit: No Status: Chronic Qualifiers: Back pain location: back pain in unspecified location Back pain laterality : midline Qualified Code(s): M54.9 - Dorsalgia, unspecified; G89.29 - Other chronic pain; G89.29 - Other chronic pain (6) Depression with anxiety Onset Date: 11/13/17 Current Visit: No Status: Chronic (7) Hypertension Onset Date: 03/27/16 Current Visit: No Status: Chronic Qualifiers: Hypertension type: essential hypertension (8) Morbid obesity Onset Date: 03/26/17 Current Visit: No Status: Chronic (9) Obstructive sleep apnea Onset Date: 11/13/17 Current Visit: No Status: Suspected - Plan Admit pt to Med/surg as observation Nebulizer treatments IV steroids prophylactic Abx for acute bronchitis IV lasix Monitor I/Os Daily wts Blood cultures Discharge Plan: Home - Advance Directives Does patient have a Living Will: No Does patient have a Durable POA for Healthcare: No - Code Status/Comfort Care Code Status Assessed: Yes
[2018-04-15] MEDS ORDERED: OXYCODONE HCL PO PRN (18:20)
[2018-04-15] MEDS ORDERED: ACETAMINOPHEN PO PRN (18:20)
[2018-04-15] MEDS: FUROSEMIDE 40 MG/4 ML VIAL IV SCH (18:25)
[2018-04-15] MEDS: ENOXAPARIN 40 MG/0.4 ML SQ SCH (18:25)
[2018-04-15] MEDS: PIPER/TAZO/NS 3.375gm 3.375 GM/100 ML BAG IVPB SCH (18:28)
[2018-04-15] MEDS: ALBUTEROL 2.5 MG/3 ML NEB SOL NEB SCH (20:00)
[2018-04-15] MEDS: IPRATROPIUM BROM 0.5MG/2.5ML NEB SCH (20:00)
[2018-04-15] MEDS: Oxycodone HCl/Acetaminophen 1 TAB TAB PO PRN (20:57)
[2018-04-15] MEDS: GABAPENTIN 400 MG CAP PO SCH (20:58)
[2018-04-15] MEDS ORDERED: INFLUENZA VACCINE (for 3y+) 0.5 ML DOSE IMVAC ONE (21:00)
[2018-04-15] MEDS ORDERED: PNEUMOCOCCAL VACCINE 0.5 ML IMVAC ONE (21:00)
[2018-04-15] MEDS ORDERED: HOME MED 1 EA UNK (Budesonide/Formoterol Fumarate [Symbicort 160-4.5 Mcg Inhaler] 2 PUFF) IH SCH (21:00)
[2018-04-15] MEDS: METHYLPREDNISOLONE 40 MG INJ IV SCH (21:15)
[2018-04-15] MEDS: clonazePAM 1 MG TAB PO PRN (21:15)
[2018-04-16] MEDS: Oxycodone HCl/Acetaminophen 1 TAB TAB PO PRN ×4 (00:44→18:22)
[2018-04-16] MEDS: PIPER/TAZO/NS 3.375gm 3.375 GM/100 ML BAG IVPB SCH ×2 (00:45→08:52)
[2018-04-16 06:23] LABS: Absolute Lymphocytes (CBC) 1.4 K/uL (0.7-4.9); Absolute Monocytes 0.4 K/uL (0.1-1.3); Absolute Neutrophil 8.1 K/uL (1.8-8.0); Basophils % 0.3 % (0-1.3); Eosinophils % 0.2 % (0-4.4); Hematocrit 38.9 % (36.0-45.0); Monocytes % 3.9 % (3.3-12.3)
[2018-04-16 06:47] LABS: Albumin 3.1 g/dL (3.4-5.0); Bilirubin Total 0.2 mg/dL (0.2-1.0); Protein, Total 6.4 g/dL (6.4-8.2)
[2018-04-16] MEDS ORDERED: ZOLPIDEM TARTRATE 5 MG TABLET PO PRN (08:21)
[2018-04-16] MEDS: IPRATROPIUM BROM 0.5MG/2.5ML NEB SCH ×3 (08:39→19:50)
[2018-04-16] MEDS: ALBUTEROL 2.5 MG/3 ML NEB SOL NEB SCH (08:39)
[2018-04-16] MEDS: ARFORMOTEROL TARTRATE 15 MCG/2 ML VIAL.NEB NEB SCH ×2 (08:51→19:50)
[2018-04-16] MEDS: ENOXAPARIN 40 MG/0.4 ML SQ SCH (08:53)
[2018-04-16] MEDS: LISINOPRIL 20 MG TAB PO SCH (08:53)
[2018-04-16] MEDS: ASPIRIN 81 MG CHEWABLE TABLET PO SCH (08:54)
[2018-04-16] MEDS: SERTRALINE HCL 100 MG TAB PO SCH (08:54)
[2018-04-16] MEDS: FUROSEMIDE 40 MG/4 ML VIAL IV SCH ×2 (08:54→17:31)
[2018-04-16] MEDS: GABAPENTIN 400 MG CAP PO SCH ×2 (08:55→20:55)
[2018-04-16] MEDS: POTASSIUM CL SA 10 MEQ TAB PO SCH (08:55)
[2018-04-16] MEDS: METOPROLOL TAR 50 MG TAB PO SCH (08:55)
--- NOTE | 2018-04-16 08:55 | P.CNS ---
Date of Consult: 04/16/18 Chief Complaint: SOB History of Present Illness: Patient is 67 years of age with a history of COPD has been sick for about 2 weeks shortness of breath cough using oxygen at home complaining of shortness of breath on minimal exertion. She had a low-grade fever productive cough the history of COPD uses Symbicort on a p.r.n. basis also complained of some edema patient is on diuretics I suspect she has sleep apnea and complains of loud snoring excessive daytime somnolence Allergies amitriptyline HCl [From Elavil] Allergy (Intermediate, Verified 04/05/18 03:22) Nausea/Vomiting ciprofloxacin [From Cipro] Allergy (Intermediate, Verified 04/05/18 03:22) Rash metronidazole Allergy (Verified 04/05/18 03:22) Itching morphine Allergy (Verified 04/05/18 03:22) Itching phenobarbital Allergy (Verified 04/05/18 03:22) Itching/Hives/Rash Home Medications: Albuterol Inhaler [Ventolin Inhaler*] 2 puff IH Q4H PRN 11/12/17 Aspirin 81 mg PO DAILY 11/12/17 Esomeprazole Mag Trihydrate [Nexium] 1 cap PO DAILY 11/12/17 Furosemide [Lasix*] 40 mg PO DAILY 11/12/17 Gabapentin [Neurontin*] 400 mg PO BID 11/12/17 Metoprolol Tartrate [Lopressor*] 50 mg PO DAILY 11/12/17 Oxycodone HCl/Acetaminophen [Endocet 10-325 mg Tablet] 1 each PO Q4H PRN Sertraline [Zoloft*] 200 mg PO DAILY 11/12/17 clonazePAM [Klonopin*] 1 mg PO BID PRN #50 tab 12/23/17 Budesonide/Formoterol Fumarate [Symbicort 160-4.5 Mcg Inhaler] 2 puff IH BID Lisinopril 40 mg PO BID 01/17/18 predniSONE [Deltasone*] 10 mg PO BID #14 tab 04/06/18 - Past Medical/Surgical History Diabetic: No -: HTN -: COPD -: CHF, diastolic dysfunction -: GERD -: Morbid obesity -: Anxiety -: DDD, DJD lumbar spine, chronic pain -: skin cancer -: History of Liver tumor -: Chronic back pain-Pain management-Dr. Herron -: Depression with anxiety -: Hernia -: Left ovarian tumor removal -: Hysterectomy -: Hernia Repair -: Lymphoma Left leg removed -: Melanoma removed from back Psychosocial/ Personal History: , Disabled, 5 children - Family History Father Medical History: Heart disease, Hypertension, Diabetes, Cancer, Liver disease Mother Medical History: Heart disease, Hypertension, Diabetes, Cancer Sister Medical History: Heart disease, Hypertension, Diabetes Brother Medical History: Hypertension - Social History Smoking Status: Current some day smoker Alcohol use: No CD- Drugs: No Caffeine use: Yes Place of Residence: Home Review of Systems 10-point ROS is otherwise unremarkable General: Weakness Respiratory: Cough, Shortness of Breath Cardiovascular: Edema Physical Examination Temp Pulse Resp BP Pulse Ox 96.8 F 75 19 168/79 H 94 04/16/18 04:00 04/16/18 04:00 04/16/18 04:00 04/16/18 04:00 04/16/18 04:00 General: Alert, Oriented x3, Mild distress Neck: Supple Respiratory: Clear to auscultation bilaterally Cardiovascular: No edema, Regular rate/rhythm, Normal S1 S2 Gastrointestinal: Normal bowel sounds, Soft and benign Musculoskeletal: No clubbing Laboratory Data (last 24 hrs) 04/15/18 12:28: WBC 13.8 H D, Hgb 14.5, Hct 45.7 H D, Plt Count 286 04/15/18 12:28: Sodium 142, Potassium 3.2 L, BUN 14, Creatinine 0.92, Glucose 105 - Problems (1) COPD with acute exacerbation Onset Date: 01/20/18 Current Visit: No Status: Acute Plan: Patient is 67 years of age with a history of COPD non compliant with a bronchodilator claimed this is too expensive patient has samples of Symbicort no evidence of sepsis chest x-rays clear apart from some cardiomegaly white count is was mildly elevated was normal labs unremarkable elevated BNP patient' s oxygenation is satisfactory patient can be discharged home on prednisone 10 mg twice a day for about 5-7 days continue with Augmentin as she has an exacerbation with change in sputum color and worsening shortness of breath she will need outpatient follow up with me in needs an outpatient pulmonary function testing patient should be discharged home on Advair give her a sample of the dual air from the hospital room-air saturation satisfactory Dc Song catheter (2) Sleep apnea Current Visit: Yes Status: Acute Plan: Patient is mildly hypoxic hypercapnic high risk for sleep apnea will need an outpatient sleep study tsh was normal in December last year Qualifiers: Sleep apnea type: unspecified type Qualified Code(s): G47.30 - Sleep apnea , unspecified
[2018-04-16] MEDS: METHYLPREDNISOLONE 40 MG INJ IV SCH (08:56)
[2018-04-16] MEDS: PANTOPRAZOLE 40MG TABLET PO SCH (08:56)
[2018-04-16] MEDS ORDERED: ALBUTEROL 2.5 MG/3 ML NEB SOL NEB PRN (08:57)
[2018-04-16] MEDS ORDERED: HOME MED 1 EA UNK (Esomeprazole Mag Trihydrate [Nexium] 1 CAP) PO SCH (09:00)
[2018-04-16] MEDS: AMOX/K CLAV 875 MG TAB PO SCH ×2 (09:51→20:55)
[2018-04-16] MEDS: predniSONE 20 MG TAB PO SCH ×2 (09:52→20:55)
[2018-04-16 11:17] LABS: Arterial Blood Carboxyhemoglob 0.8 % (0-1.5); Blood Gas Oxyhemoglobin 94.7 % (94-97); Blood O2 Saturation 96.6 % (92-98.5)
--- NOTE | 2018-04-16 12:40 | PN ---
Date of Progress Note: 04/16/2018 Subjective: The patient is seen and examined. Chart reviewed, and case discussed with RN. The lakisha ent is still complaining of significant shortness of breath, getting very anxious. Medications: List reviewed. Physical Examination: Vital Signs: Temperature 96.9, heart rate 67, blood pressure 176/72, respirations 20, O2 of 97% on 2 L via nasal cannula. General: Awake, alert, oriented x3. An elderly female, ill-appearing, morbidly obese. CV: S1, S2. Regular rate and rhythm. Peripheral pulses present. Respiratory: Diminished breath sounds. Wheezing heard throughout. Some rhonchi are present. The p atient is slightly tachypneic. No use of accessory muscles. Gastrointestinal: Abdomen is soft, nontender, nondistended. Positive bowel sounds. Extremities: No clubbing or cyanosis. The patient has peripheral edema. Neuro: Cranial nerves 2 through 12 intact grossly. No focal neurological deficit. Speech is normal . Laboratory Data: Sodium 140, potassium 4, chloride 103, CO2 of 30, BUN 19, creatinine 0.9, glucose 2 23. Lactate is 1.6, calcium 8.7, albumin 3.1. WBC 10, H and H 12.6 and 38.9, platelets 254. Blood cultures pending. Assessment: A 67-year-old female with: 1.Uuqsb-fy-xxxlbyy diastolic heart failure. Continue with diuretics. Monitor I's and O's. 2.Chronic obstructive pulmonary disease with acute exacerbation. Continue steroids, breathing treat ments. We will switch breathing treatments to p.r.n. 3.Dyspnea secondary to above, improved. Continue supplemental oxygen. 4.Chronic respiratory failure. The patient is on O2, mainly at night. 5.Atrial fibrillation, chronic. Resume home medications. 6.Chronic back pain, midline, without sciatica. 7.Depression with anxiety. Continue benzodiazepines. 8.Essential hypertension, stable. 9.Morbid obesity, BMI 57. 10.Obstructive sleep apnea. We will continue CPAP at night. 11.Gastrointestinal and deep venous thrombosis prophylaxis addressed. Plan: Follow up on cultures. Continue antibiotics. Pulmonology consult. The patient's second admi ssion within the past month. Likely discharge in the next 24 to 48 hours depending on clinical respo nse. SA/MODL Voice ID: [id number] Report ID: [id number]
[2018-04-16 13:08] LABS: Urine Appearance CLEAR; Urine Bilirubin NEGATIVE (NEG); Urine Blood NEGATIVE (NEG); Urine Color YELLOW; Urine Glucose NEGATIVE (NEG); Urine Protein NEGATIVE (NEG); Urine Specific Gravity 1.015 (1.005-1.030); Urine Urobilinogen 0.2 mg/dL (0.2-1.0)
[2018-04-16 13:22] LABS: Urine Bacteria 20-50 /HPF (<20); Urine Culture Reflex Order REFLEXED; Urine RBC <5 /HPF (NONE SEEN)
[2018-04-16] MEDS: OXYCODONE HCL 5 MG TAB PO PRN ×2 (14:38→22:57)
[2018-04-16] MEDS: clonazePAM 1 MG TAB PO PRN (14:38)
[2018-04-17] MEDS: IPRATROPIUM BROM 0.5MG/2.5ML NEB SCH ×3 (01:20→14:20)
[2018-04-17] MEDS: Oxycodone HCl/Acetaminophen 1 TAB TAB PO PRN ×3 (02:44→18:54)
[2018-04-17 05:22] VITALS: BMI 58.8
[2018-04-17 06:32] LABS: Absolute Lymphocytes (CBC) 1.2 K/uL (0.7-4.9); Absolute Monocytes 0.5 K/uL (0.1-1.3); Absolute Neutrophil 8.9 K/uL (1.8-8.0); Basophils % 0.2 % (0-1.3); Hematocrit 38.9 % (36.0-45.0); Lymphocytes % 11.6 % (15.3-44.8); MPV 7.6 fL (7.6-11.3); RBC Red Blood Cell Count 4.51 M/uL (3.86-4.86)
[2018-04-17 06:39] LABS: Bilirubin Total 0.2 mg/dL (0.2-1.0); Potassium 4.5 mmol/L (3.5-5.1); Protein, Total 6.1 g/dL (6.4-8.2)
[2018-04-17] MEDS: ARFORMOTEROL TARTRATE 15 MCG/2 ML VIAL.NEB NEB SCH (07:40)
[2018-04-17] MEDS: OXYCODONE HCL 5 MG TAB PO PRN (08:37)
[2018-04-17] MEDS: ENOXAPARIN 40 MG/0.4 ML SQ SCH (08:37)
[2018-04-17] MEDS: ASPIRIN 81 MG CHEWABLE TABLET PO SCH (08:37)
[2018-04-17] MEDS: POTASSIUM CL SA 10 MEQ TAB PO SCH (08:38)
[2018-04-17] MEDS: SERTRALINE HCL 100 MG TAB PO SCH (08:38)
[2018-04-17] MEDS: PANTOPRAZOLE 40MG TABLET PO SCH (08:38)
[2018-04-17] MEDS: clonazePAM 1 MG TAB PO PRN (08:38)
[2018-04-17] MEDS: GABAPENTIN 400 MG CAP PO SCH (08:39)
[2018-04-17] MEDS: FUROSEMIDE 40 MG/4 ML VIAL IV SCH ×2 (08:39→17:00)
[2018-04-17] MEDS: predniSONE 20 MG TAB PO SCH (08:39)
[2018-04-17] MEDS: AMOX/K CLAV 875 MG TAB PO SCH (08:39)
[2018-04-17] MEDS: METOPROLOL TAR 50 MG TAB PO SCH (08:40)
[2018-04-17] MEDS: LISINOPRIL 20 MG TAB PO SCH (08:40)
[2018-04-17] MEDS ORDERED: DULERA 200/5 (MOMETASONE/FORMOTEROL) INHALER IH SCH (09:00)
[2018-04-17 17:55] VITALS: TEMP 97.7
--- NOTE | 2018-04-17 18:41 | RAD REPORT ---
EXAM DESCRIPTION: CT - CTHCSPWOC - 04/17/2018 5:54 pm CLINICAL HISTORY: Trauma, head and neck injury. fall, trauma, pain.r/out fracture, bleed COMPARISON: CT HEAD CSPINE MPR WO CONTRAST dated 06/16/2015 TECHNIQUE: Axial 5 mm thick images of the head were obtained. Axial 2 mm thick images of the cervical spine were obtained with sagittal and coronal reconstruction images generated and reviewed. All CT scans are performed using dose optimization technique as appropriate and may include automated exposure control or mA/KV adjustment according to patient size. FINDINGS: CT HEAD WITHOUT CONTRAST: No acute hemorrhage, hydrocephalus or extra-axial collection is identified.No areas of brain edema or midline shift. The paranasal sinuses and mastoids are clear.The calvarium is intact. CT CERVICAL SPINE WITHOUT CONTRAST: No fracture or subluxation.No prevertebral soft tissues swelling is identified. IMPRESSION: No acute intracranial or cervical spine findings.
[2018-04-17 20:27] VITALS: BP 144/86
[2018-04-17 20:32] VITALS: O2SAT 2
--- NOTE | 2018-04-18 11:56 | DS ---
Date of Discharge: 04/17/2018 Consultants: Dr. Barron with Pulmonology. Admitting Diagnoses: 1. Xuikl-dj-bsafiqs diastolic heart failure. 2. Chronic obstructive pulmonary disease with acute exacerbation. 3. Dyspnea. 4. Atrial fibrillation, chronic. 5. Chronic back pain, midline, without sciatica. 6. Depression with anxiety. 7. Essential hypertension. 8. Morbid obesity. 9. Obstructive sleep apnea. Discharge Diagnoses: 1. Oxccp-mu-ikubfgn diastolic heart failure, improved. 2. Acute chronic obstructive pulmonary disease exacerbation. 3. Dyspnea, resolving. The patient at 93% on room air with exertion. 4. Obstructive sleep apnea. The patient uses oxygen at nighttime. 5. Atrial fibrillation, chronic. 6. Chronic back pain, midline, without sciatica. 7. Depression with anxiety. 8. Essential hypertension. 9. Insomnia. 10. Morbid obesity, BMI 57. Hospital Course: The patient is a 67-year-old female who was recently discharged from the hospital, comes in with respiratory distress, found to be fluid overloaded, wheezing, and was admitted for COPD and CHF exacerbation. The patient was treated with IV diuretics and nebulizer treatments. The patient 's other chronic medical conditions remained stable. The patient was seen by Dr. Barron with Pulmonology, who adjusted her inhalers. The patient does have history of noncompliance with her inhalers. She was given sample of Dulera while in the hospital. The patient's potassium was replaced. Her white count normalized. The patient's blood culture showed no growth. Sputum culture did not show any growth either. The patient did have mild UTI with 1+ leukocyte esterase and some bacteria, however, urine culture showed no growth. She did receive dose of antibiotics in the ER. The patient was then cleared for discharge. She would be going home on Augmentin, steroid taper, and Advair. Rest of the medications, as per medication reconciliation list. Followup: Follow up with primary care physician in 2 to 3 days. Follow up with hot roll inspector, Dr. Barron, in 2 weeks. Return to ER for worsening condition. Diet: Diabetic. Activity: No strenuous activity. Physical Examination: General: Awake, alert, oriented x3, morbidly obese female, in no acute distress. CV: S1, S2. No murmurs. Respiratory: Moving air well bilaterally. Some wheezing heard. Gastrointestinal: Abdomen is soft, nontender, nondistended. Positive bowel sounds. Extremities: No clubbing, cyanosis, or edema. Neuro: Nonfocal. ADDENDUM: Patient had fall prior to DC. She was in a hurry to use the restroom before her came up , she put on her regular socks (took off the hospital non slip socks) and fell and hit her head on her way to the bathroom. Patient was assessed. CT head and c spine were done. She had minimal pain. Imaging studies were negative for acute bleed or fracture. Patient was then DC home SA/MODArnaldo Voice ID: [id number] Report ID: [id number] BRENDA
== END 2018-04-17 20:11 | disposition home health service (06) ==
LOC: ER 11:11 → ERHOLD 14:58 → 2ND 16:17
PROVIDERS: ADMIT Family Medicine; ATTEND Family Medicine
DX: I11.0 Hypertensive heart disease with heart failure (principal); I50.33 Acute on chronic diastolic (congestive) heart failure; J44.1 Chronic obstructive pulmonary disease with (acute) exacerbation; G47.33 Obstructive sleep apnea (adult) (pediatric); I48.2 Chronic atrial fibrillation; N39.0 Urinary tract infection, site not specified; M54.9 Dorsalgia, unspecified; F41.8 Other specified anxiety disorders; G47.00 Insomnia, unspecified; E66.01 Morbid (severe) obesity due to excess calories; Z68.43 Body mass index [BMI] 50.0-59.9, adult; Z23 Encounter for immunization
CPT/HCPCS: 36415 ×2; 70450; 71045; 72125; 80048; 80053 ×2; 81001; 82805; 83605; 83880; 84484; 85025 ×3; 87040 ×3; 87070; 87088; 87205; 90670; 93005; 94760 ×6; 96374; 97162; 99285; G0008; G0009; G0378 ×2; J1650 ×3; J1940 ×4; J2405; J2543; J2920; J2930; J3010; J7605 ×2; Q2035; 87086; J7512

== ENCOUNTER 2018-06-06 18:17 | Inpatient (IN) | payer OTHER ==
[2018-06-06] MEDS ORDERED: ALBUTEROL 2.5 MG/3 ML NEB SOL ONE (19:02)
[2018-06-06] MEDS ORDERED: NA CHLORIDE 0.9% 1,000 ML ONE (19:02)
[2018-06-06] MEDS ORDERED: METHYLPREDNISOLONE 125 MG INJ ONE (19:02)
[2018-06-06] MEDS ORDERED: IPRATROPIUM BROM 0.5MG/2.5ML ONE (19:02)
--- NOTE | 2018-06-06 19:21 | ER ---
Nurse's Notes [facility] Name: Amy Velasquez Age: 67 yrs Sex: Female : 1950 Arrival Date: 06/06/2018 Time: 18:21 Bed 30 Private MD: Lucho Catalan Diagnosis: Dyspnea;Chronic obstructive pulmonary disease with (acute) exacerbation;Obesity, unspecified;Hypoxemia;Urinary tract infection, site not specified;Cellulitis and acute lymphangitis of other parts of limb Presentation: 06/06 18:23 Presenting complaint: Patient states: SOB, fever Tmax 101, RLE swelling and redness x 1 sv day. Transition of care: patient was not received from another setting of care. Onset of symptoms was June 05, 2018. Care prior to arrival: None. 18:23 Method Of Arrival: Wheelchair sv 18:23 Acuity: BHARTI 3 sv 19:40 Risk Assessment: Do you want to hurt yourself or someone else? Patient reports no rv desire to harm self or others. Initial Sepsis Screen: Does the patient meet any 2 criteria? No. Patient's initial sepsis screen is negative. Does the patient have a suspected source of infection? No. Patient's initial sepsis screen is negative. Triage Assessment: 19:41 General: Appears in no apparent distress. uncomfortable. Respiratory: Reports shortness rv of breath at rest Onset: The symptoms/episode began/occurred gradually, the patient has mild shortness of breath. Historical: - Allergies: 18:24 Amitriptyline; sv 18:24 Cipro; sv 18:24 Morphine (rash, Itching); sv 18:24 Phenobarbital; sv - PMHx: 18:24 ADD/ADHD; Anxiety; Asthma; Atrial Fib; CANCER, SKIN; CHF; COPD; Degenerative disc sv disease; Hernia; Hypertension; - PSHx: 18:24 Hernia repair; Tubal ligation; Hysterectomy; sv - Immunization history:: Adult Immunizations up to date. - Social history:: Smoking status: unknown. - Ebola Screening: : Patient negative for fever greater than or equal to 101.5 degrees Fahrenheit, and additional compatible Ebola Virus Disease symptoms Patient denies exposure to infectious person Patient denies travel to an Ebola-affected area in the 21 days before illness onset. Screenin:40 Abuse screen: Denies threats or abuse. Denies injuries from another. Nutritional rv screening: No deficits noted. Tuberculosis screening: No symptoms or risk factors identified. Fall Risk No fall in past 12 months (0 pts). Secondary diagnosis (15 points) impaired mobility, No IV (0 pts). Ambulatory Aid- Crutches/Cane/Walker (15 pts). Gait- Impaired (20 pts.). Mental Status- Oriented to own ability (0 pts). Total Omer Fall Scale indicates High Risk Score (45 or more points). Fall prevention measures have been instituted. Side Rails Up X 2 Placed Close to Nursing Station Frequent Obs/Assessments Occuring Family Present and informed to notify staff if the need to leave the bedside As available patient and family educated on Fall Prevention Program and Strategies. Assessment: 19:39 General: Appears in no apparent distress. uncomfortable, obese, Behavior is calm, rv cooperative. Pain: Complains of pain in right leg. Neuro: Level of Consciousness is awake, alert, obeys commands, Oriented to person, place, time, situation. Cardiovascular: Rhythm is regular. Respiratory: Airway is patent Respiratory effort is labored, Breath sounds with wheezes bilaterally. GI: No signs and/or symptoms were reported involving the gastrointestinal system. : No signs and/or symptoms were reported regarding the genitourinary system. EENT: No signs and/or symptoms were reported regarding the EENT system. Derm: Skin is intact. Musculoskeletal: No signs and/or symptoms reported regarding the musculoskeletal system. 20:00 Reassessment: Patient appears in no apparent distress at this time. Patient and/or rv family updated on plan of care and expected duration. Pain level reassessed. Patient is alert, oriented x 3, equal unlabored respirations, skin warm/dry/pink. Vital Signs: 18:24 BP 124 / 93; Pulse 81; Resp 26; Temp 98.4; Pulse Ox 94% ; Weight 165.11 kg; Height 5 sv ft. 3 in. (160.02 cm); 19:00 BP 146 / 68 LA; Pulse 91; Resp 20 S; Pulse Ox 98% on R/A; rv 20:00 BP 149 / 77 LA; Pulse 89; Resp 16 S; Pulse Ox 99% on R/A; rv 20:30 BP 138 / 78 LA; Pulse 88; Resp 14 S; Pulse Ox 98% on 2 lpm NC; rv 21:00 BP 150 / 75 LA; Pulse 91; Resp 15 S; Pulse Ox 95% on 2 lpm NC; rv 18:24 Body Mass Index 64.48 (165.11 kg, 160.02 cm) sv ED Course: 18:21 Patient arrived in ED. mr 18:22 Lucho Catalan MD is Private Physician. mr 18:23 Triage completed. sv 18:24 Arm band placed on. sv 18:50 Urine collected: clean catch specimen, clear, raheel colored, Amount Voided: 10mL EKG jp3 done, by ED staff, reviewed by You Dao MD. 18:55 You Dao MD is Attending Physician. phoebe 19:10 Inserted saline lock: 20 gauge in right forearm, using aseptic technique. Blood rv collected. 19:16 Danielle Marley MD is Hospitalizing Provider. phoebe 19:42 Patient has correct armband on for positive identification. Bed in low position. Call rv light in reach. Side rails up X2. Adult w/ patient. case monitor on. Pulse ox on. NIBP on. 20:01 Ultrasound completed. Patient tolerated well. sg3 20:01 US Extremity Venous W Compression Reed In Process Unspecified. EDMS 20:05 Urine Culture Sent. jp3 20:14 XRAY Chest (1 view) In Process Unspecified. EDMS 21:36 No provider procedures requiring assistance completed. Patient admitted, IV remains in rv place. intact. Administered Medications: 19:00 Drug: Albuterol - atroVENT (3:1) (2.5 mg - 0.5 mg) 3 ml Route: Nebulizer; rv 20:25 Follow up: Response: Marked relief of symptoms rv 19:20 Drug: SOLU-Medrol 125 mg Route: IVP; Site: right forearm; rv 20:26 Follow up: Response: Marked relief of symptoms rv 19:30 Drug: NS 0.9% 1000 ml Route: IV; Rate: 125 ml/hr; Site: right forearm; rv 20:25 Follow up: IV Status: Infusion continued upon admission rv 19:30 Drug: Pepcid 20 mg Route: IVP; Site: right forearm; rv 20:26 Follow up: Response: No adverse reaction rv 19:30 Drug: Zosyn 3.375 grams Route: IVPB; Infused Over: 60 mins; Site: right forearm; rv 21:04 Follow up: IV Status: Completed infusion rv 19:30 Drug: Lovenox 100 mg Route: Sub-Q; Site: right lower abdomen; rv 20:26 Follow up: Response: No adverse reaction rv 20:15 Drug: fentaNYL (PF) 50 mcg Route: IVP; Site: right forearm; rv 21:04 Follow up: Response: No adverse reaction; Pain is decreased rv 20:45 Drug: vancoMYCIN 1 grams Route: IVPB; Infused Over: 2 hrs; Site: right forearm; rv 21:37 Follow up: IV Status: Infusion continued upon admission rv 21:00 Drug: Zofran 4 mg Route: IVP; Site: right forearm; rv 21:37 Follow up: Response: Nausea is decreased rv Outcome: 19:20 Decision to Hospitalize by Provider. phoebe 21:36 Admitted to Tele accompanied by nurse, via stretcher, room 409, with chart, Report rv called to CHUCK KULKARNI 21:36 Condition: good 21:36 Instructed on the need for admit, Demonstrated understanding of instructions. 22:04 Patient left the ED. rv Signatures: Dispatcher [employer] Elva Bonilla, You Huertas RN, MD MD cha Rivera, Mary mr Godinez, Sarah sg3 Jairo Grant RN RN rv Pisarski, Jacob jp3
--- NOTE | 2018-06-06 19:21 | EDPHYS ---
Physician Documentation [facility] Name: Amy Velasquez Age: 67 yrs Sex: Female : 1950 Arrival Date: 06/06/2018 Time: 18:21 Bed 30 Private MD: Lucho Catalan ED Physician You Dao HPI: 06/06 19:12 This 67 yrs old Female presents to ER via Wheelchair with complaints of phoebe Breathing Difficulty, Fever, Leg Swelling. 19:12 The patient has shortness of breath with light activity. Onset: The symptoms/episode phoebe began/occurred 2 day(s) ago. The patient's shortness of breath is aggravated by nothing. Associated signs and symptoms: Pertinent positives: non-productive cough. Severity of symptoms: At their worst the symptoms were moderate. The patient has experienced similar episodes in the past, several times. Historical: - Allergies: 18:24 Amitriptyline; sv 18:24 Cipro; sv 18:24 Morphine (rash, Itching); sv 18:24 Phenobarbital; sv - PMHx: 18:24 ADD/ADHD; Anxiety; Asthma; Atrial Fib; CANCER, SKIN; CHF; COPD; Degenerative disc sv disease; Hernia; Hypertension; - PSHx: 18:24 Hernia repair; Tubal ligation; Hysterectomy; sv - Immunization history:: Adult Immunizations up to date. - Social history:: Smoking status: unknown. - Ebola Screening: : Patient negative for fever greater than or equal to 101.5 degrees Fahrenheit, and additional compatible Ebola Virus Disease symptoms Patient denies exposure to infectious person Patient denies travel to an Ebola-affected area in the 21 days before illness onset. ROS: 19:13 Constitutional: Negative for fever, chills, and weight loss, Eyes: Negative for injury, phoebe pain, redness, and discharge, ENT: Negative for injury, pain, and discharge, Neck: Negative for injury, pain, and swelling, Cardiovascular: Negative for chest pain, palpitations, and edema, Abdomen/GI: Negative for abdominal pain, nausea, vomiting, diarrhea, and constipation, Back: Negative for injury and pain, : Negative for injury, bleeding, discharge, and swelling, Neuro: Negative for headache, weakness, numbness, tingling, and seizure, Psych: Negative for depression, anxiety, suicide ideation, homicidal ideation, and hallucinations, Allergy/Immunology: Negative for hives, rash, and allergies, Endocrine: Negative for neck swelling, polydipsia, polyuria, polyphagia, and marked weight changes, Hematologic/Lymphatic: Negative for swollen nodes, abnormal bleeding, and unusual bruising. 19:13 Respiratory: Positive for cough, with green sputum, dyspnea on exertion, shortness of breath, on exertion. 19:13 Abdomen/GI: Positive for abdominal distension. 19:13 MS/extremity: Positive for pain, swelling, tenderness, of the right leg. Exam: 19:13 Constitutional: This is a well developed, well nourished patient who is awake, alert, phoebe and in no acute distress. Head/Face: Normocephalic, atraumatic. Eyes: Pupils equal round and reactive to light, extra-ocular motions intact. Lids and lashes normal. Conjunctiva and sclera are non-icteric and not injected. Cornea within normal limits. Periorbital areas with no swelling, redness, or edema. ENT: Nares patent. No nasal discharge, no septal abnormalities noted. Tympanic membranes are normal and external auditory canals are clear. Oropharynx with no redness, swelling, or masses, exudates, or evidence of obstruction, uvula midline. Mucous membranes moist. Neck: Trachea midline, no thyromegaly or masses palpated, and no cervical lymphadenopathy. Supple, full range of motion without nuchal rigidity, or vertebral point tenderness. No Meningismus. Chest/axilla: Normal chest wall appearance and motion. Nontender with no deformity. No lesions are appreciated. Cardiovascular: Regular rate and rhythm with a normal S1 and S2. No gallops, murmurs, or rubs. Normal PMI, no JVD. No pulse deficits. Abdomen/GI: Soft, non-tender, with normal bowel sounds. No distension or tympany. No guarding or rebound. No evidence of tenderness throughout. Back: No spinal tenderness. No costovertebral tenderness. Full range of motion. Neuro: Awake and alert, GCS 15, oriented to person, place, time, and situation. Cranial nerves II-XII grossly intact. Motor strength 5/5 in all extremities. Sensory grossly intact. Cerebellar exam normal. Normal gait. Psych: Awake, alert, with orientation to person, place and time. Behavior, mood, and affect are within normal limits. 19:13 Respiratory: mild respiratory distress is noted, Respirations: labored breathing, that is mild, that is moderate, Breath sounds: decreased breath sounds, rhonchi, wheezing: inspiratory expiratory 19:13 Abdomen/GI: Inspection: distension, Bowel sounds: normal, Liver: no appreciated palpable abnormalities, Hernia: not appreciated. 19:13 Musculoskeletal/extremity: ROM: full active range of motion, full passive range of motion, Circulation is intact in all extremities. Sensation intact. Compartment Syndrome exam of affected extremity: is normal. DVT Exam: swelling, tenderness, erythema, increased warmth, that is moderate, of the right leg, of the right leg. Vital Signs: 18:24 BP 124 / 93; Pulse 81; Resp 26; Temp 98.4; Pulse Ox 94% ; Weight 165.11 kg; Height 5 sv ft. 3 in. (160.02 cm); 19:00 BP 146 / 68 LA; Pulse 91; Resp 20 S; Pulse Ox 98% on R/A; rv 20:00 BP 149 / 77 LA; Pulse 89; Resp 16 S; Pulse Ox 99% on R/A; rv 20:30 BP 138 / 78 LA; Pulse 88; Resp 14 S; Pulse Ox 98% on 2 lpm NC; rv 21:00 BP 150 / 75 LA; Pulse 91; Resp 15 S; Pulse Ox 95% on 2 lpm NC; rv 18:24 Body Mass Index 64.48 (165.11 kg, 160.02 cm) sv MDM: 18:44 Patient medically screened. 06/06 18:43 Order name: Basic Metabolic Panel; Complete Time: 19:57 06/06 18:43 Order name: CBC with Diff; Complete Time: 19:57 06/06 18:43 Order name: LFT's; Complete Time: 19:57 06/06 18:43 Order name: Magnesium; Complete Time: 19:57 06/06 18:43 Order name: NT PRO-BNP; Complete Time: 19:57 06/06 18:43 Order name: PT-INR; Complete Time: 19:57 06/06 18:43 Order name: Troponin (emerg Dept Use Only); Complete Time: 19:57 06/06 18:43 Order name: Blood Culture Adult (2) 06/06 18:43 Order name: Procalcitonin 06/06 18:43 Order name: Lactate; Complete Time: 19:57 [facility] 06/06 18:43 Order name: Lipase; Complete Time: 19:57 [facility] 06/06 18:43 Order name: Urine Culture [facility] 06/06 18:43 Order name: Influenza Screen (a \T\ B); Complete Time: 19:57 [facility] 06/06 19:01 Order name: Urine Dipstick--Ancillary (enter results) sc 06/06 18:43 Order name: XRAY Chest (1 view) [facility] 06/06 18:43 Order name: EKG; Complete Time: 18:53 [facility] 06/06 18:43 Order name: Cardiac monitoring; Complete Time: 19:59 [facility] 06/06 18:43 Order name: EKG - Nurse/Tech; Complete Time: 18:47 [facility] 06/06 18:43 Order name: IV Saline Lock; Complete Time: 21:16 [facility] 06/06 18:43 Order name: Labs collected and sent; Complete Time: 21:16 [facility] 06/06 19:08 Order name: US Extremity Venous W Compression Reed [facility] 06/06 18:43 Order name: O2 Per Protocol; Complete Time: 21:16 [facility] 06/06 18:43 Order name: O2 Sat Monitoring; Complete Time: 21:16 [facility] 06/06 18:43 Order name: Urine Dipstick-Ancillary (obtain specimen); Complete Time: 18:47 [facility] Administered Medications: 19:00 Drug: Albuterol - atroVENT (3:1) (2.5 mg - 0.5 mg) 3 ml Route: Nebulizer; rv 20:25 Follow up: Response: Marked relief of symptoms rv 19:20 Drug: SOLU-Medrol 125 mg Route: IVP; Site: right forearm; rv 20:26 Follow up: Response: Marked relief of symptoms rv 19:30 Drug: NS 0.9% 1000 ml Route: IV; Rate: 125 ml/hr; Site: right forearm; rv 20:25 Follow up: IV Status: Infusion continued upon admission rv 19:30 Drug: Pepcid 20 mg Route: IVP; Site: right forearm; rv 20:26 Follow up: Response: No adverse reaction rv 19:30 Drug: Zosyn 3.375 grams Route: IVPB; Infused Over: 60 mins; Site: right forearm; rv 21:04 Follow up: IV Status: Completed infusion rv 19:30 Drug: Lovenox 100 mg Route: Sub-Q; Site: right lower abdomen; rv 20:26 Follow up: Response: No adverse reaction rv 20:15 Drug: fentaNYL (PF) 50 mcg Route: IVP; Site: right forearm; rv 21:04 Follow up: Response: No adverse reaction; Pain is decreased rv 20:45 Drug: vancoMYCIN 1 grams Route: IVPB; Infused Over: 2 hrs; Site: right forearm; rv 21:37 Follow up: IV Status: Infusion continued upon admission rv 21:00 Drug: Zofran 4 mg Route: IVP; Site: right forearm; rv 21:37 Follow up: Response: Nausea is decreased rv Disposition: 06/06/18 19:20 Hospitalization ordered by Danielle Marley for Inpatient Admission. Preliminary diagnosis are Dyspnea, Chronic obstructive pulmonary disease with (acute) exacerbation, Obesity, unspecified, Hypoxemia, Urinary tract infection, site not specified, Cellulitis and acute lymphangitis of other parts of limb. - Bed requested for Telemetry/MedSurg (Inpatient). - Status is Inpatient Admission. rv - Condition is Stable. - Problem is new. - Symptoms have improved. UTI on Admission? Yes Signatures: Dispatcher [employer] EDElva Rowan RN Paulina Son RN RN mw Anderson, Corey, MD MD cha Rittger, Kevin, MD MD kdr Therrien, Shelly, COOKIE MIXER HELPER-C COOKIE MIXER HELPER-Csnw Jairo Grant RN RN rv Corrections: (The following items were deleted from the chart) 19:22 19:20 Hospitalization Ordered by Danielle Marley MD for Inpatient Admission. Preliminary phoebe diagnosis is Dyspnea; Chronic obstructive pulmonary disease with (acute) exacerbation; Obesity, unspecified; Hypoxemia; Urinary tract infection, site not specified. Bed requested for Telemetry/MedSurg (Inpatient). Status is Inpatient Admission. Condition is Stable. Problem is new. Symptoms have improved. UTI on Admission? Yes. phoebe 20:49 19:22 06/06/2018 19:20 Hospitalization Ordered by Danielle Marley MD for Inpatient mw Admission. Preliminary diagnosis is Dyspnea; Chronic obstructive pulmonary disease with (acute) exacerbation; Obesity, unspecified; Hypoxemia; Urinary tract infection, site not specified; Cellulitis and acute lymphangitis of other parts of limb. Bed requested for Telemetry/MedSurg (Inpatient). Status is Inpatient Admission. Condition is Stable. Problem is new. Symptoms have improved. UTI on Admission? Yes. [facility] 22:04 20:49 06/06/2018 19:20 Hospitalization Ordered by Danielle Marley MD for Inpatient rv Admission. Preliminary diagnosis is Dyspnea; Chronic obstructive pulmonary disease with (acute) exacerbation; Obesity, unspecified; Hypoxemia; Urinary tract infection, site not specified; Cellulitis and acute lymphangitis of other parts of limb. Bed requested for Telemetry/MedSurg (Inpatient). Status is Inpatient Admission. Condition is Stable. Problem is new. Symptoms have improved. UTI on Admission? Yes. mw
[2018-06-06] MEDS ORDERED: ENOXAPARIN 100 MG/ML SYR SQ ONE (19:38)
[2018-06-06] MEDS ORDERED: PIPER/TAZO/NS 3.375gm 3.375 GM/100 ML BAG ONE (19:38)
[2018-06-06] MEDS ORDERED: NA CHLORIDE 0.9% 250 ML ONE ×2 (19:38→19:39)
[2018-06-06] MEDS ORDERED: FAMOTIDINE 20 MG/2 ML VIAL IV ONE (19:38)
[2018-06-06] MEDS ORDERED: VANCOMYCIN 1 GM/VIAL ONE (19:38)
[2018-06-06 19:40] LABS: Absolute Lymphocytes (CBC) 2.3 K/uL (0.7-4.9); Absolute Neutrophil 8.6 K/uL (1.8-8.0); Basophils % 0.6 % (0-1.3); Eosinophils % 1.5 % (0-4.4); Hematocrit 38.8 % (36.0-45.0); Lymphocytes % 18.7 % (15.3-44.8); MPV 7.6 fL (7.6-11.3); RBC Red Blood Cell Count 4.44 M/uL (3.86-4.86)
[2018-06-06 19:41] LABS: Protime INR 1.1
[2018-06-06 19:54] LABS: ALT/SGPT 17 U/L (12-78); AST/SGOT 13 U/L (15-37); Albumin 3.2 g/dL (3.4-5.0); Alkaline Phosphatase 80 U/L (45-117); BUN Blood Urea Nitrogen 18 mg/dL (7-18); Bicarbonate 32 mmol/L (21-32); Bilirubin Direct < 0.1 mg/dL (0-0.2); Bilirubin Total 0.5 mg/dL (0.2-1.0); Glucose Level 87 mg/dL (74-106); Lipase 46 U/L (73-393); Magnesium 2.1 mg/dL (1.8-2.4); NT PRO-BNP 1299 pg/mL (<125); Potassium 4.1 mmol/L (3.5-5.1); Protein, Total 6.9 g/dL (6.4-8.2); Sodium Level 141 mmol/L (136-145); Troponin (Emerg Dept Use Only) < 0.02 ng/mL (0.0-0.045)
[2018-06-06 20:17] LABS: Urine Blood TRACE (NEG); Urine Glucose NEGATIVE (NEG); Urine Protein TRACE (NEG); Urine Specific Gravity 1.025 (1.005-1.030); Urine pH 5.5 (5.0-7.0)
[2018-06-06] MEDS ORDERED: FENTANYL CITR 100 MCG/2 ML ONE (20:20)
--- NOTE | 2018-06-06 20:29 | RAD REPORT ---
EXAM DESCRIPTION: USExtrem Venous W Compress Bil06/06/2018 8:02 pm CLINICAL HISTORY: Bilateral leg pain COMPARISON: May 2017 FINDINGS: The examination is limited secondary to body habitus. The common femoral, superficial femoral, popliteal and posterior tibial veins bilaterally are saida sible and demonstrate augmentation. Doppler demonstrates good flow. IMPRESSION: No gross evidence of a deep veinous thrombosis
--- NOTE | 2018-06-06 20:31 | RAD REPORT ---
EXAM DESCRIPTION: Vikash Single View06/06/2018 8:13 pm CLINICAL HISTORY: Cough COMPARISON: March 2018 FINDINGS: The lungs appear clear of acute infiltrate. The heart is mildly enlarged IMPRESSION: No acute abnormalities displayed
[2018-06-06] MEDS ORDERED: ACETAMINOPHEN 500 MG TAB PO PRN (20:39)
[2018-06-06] MEDS ORDERED: hydrOXYzine HCl 25 MG TAB PO PRN (22:59)
[2018-06-06] MEDS: TEMAZEPAM 15 MG CAP PO PRN (23:50)
[2018-06-06] MEDS: OXYCODONE HCL 5 MG TAB PO SCH (23:50)
[2018-06-06] MEDS: ACETAMINOPHEN 325 MG TABLET PO SCH (23:53)
[2018-06-07] MEDS: FUROSEMIDE 40 MG/4 ML VIAL IV SCH ×3 (01:17→18:16)
[2018-06-07] MEDS: METHYLPREDNISOLONE 40 MG INJ IV SCH ×3 (01:17→18:16)
[2018-06-07] MEDS: ALBUTEROL 2.5 MG/3 ML NEB SOL NEB SCH ×4 (01:26→20:15)
[2018-06-07] MEDS: IPRATROPIUM BROM 0.5MG/2.5ML NEB SCH ×4 (01:26→20:15)
[2018-06-07] MEDS: clonazePAM 1 MG TAB PO PRN ×2 (02:52→14:46)
[2018-06-07 03:26] LABS: Urine Appearance CLEAR; Urine Bilirubin NEGATIVE (NEG); Urine Blood 1+ (NEG); Urine Color YELLOW; Urine Glucose 3+ (NEG); Urine Protein NEGATIVE (NEG); Urine Urobilinogen 0.2 mg/dL (0.2-1.0); Urine pH 5.5 (5.0-7.0)
[2018-06-07 03:28] LABS: Urine Microscopic Reflex ORDER UMIC
[2018-06-07] MEDS: OXYCODONE HCL 5 MG TAB PO SCH ×6 (03:31→22:31)
[2018-06-07] MEDS: ACETAMINOPHEN 325 MG TABLET PO SCH ×6 (03:31→22:31)
[2018-06-07 03:52] LABS: Urine Bacteria <20 /HPF (<20); Urine Culture Reflex Order NOT NEEDED; Urine RBC <5 /HPF (NONE SEEN)
[2018-06-07] MEDS ORDERED: VANCOMYCIN 1 GM in NA CHLORIDE 0.9% 250 ML IVPB SCH (05:00)
[2018-06-07] MEDS: AMPICILLIN/SULBACT 3 GM in NA CHLORIDE 0.9% 100 ML IVPB SCH ×3 (05:00→18:19)
[2018-06-07] MEDS: PANTOPRAZOLE 40MG TABLET PO SCH (06:01)
[2018-06-07] MEDS ORDERED: AMPICILLIN/SULBACTAM 3GM/VIAL ONE (06:02)
[2018-06-07] MEDS ORDERED: NA CHLORIDE 0.9% 0 ML ONE (06:05)
[2018-06-07 06:08] LABS: Hematocrit 36.3 % (36.0-45.0); Lymphocytes % 4.4 % (15.3-44.8); MPV 7.9 fL (7.6-11.3); RBC Red Blood Cell Count 4.15 M/uL (3.86-4.86)
[2018-06-07 06:09] LABS: Absolute Lymphocytes (CBC) 0.6 K/uL (0.7-4.9); Absolute Monocytes 0.1 K/uL (0.1-1.3); Absolute Neutrophil 12.4 K/uL (1.8-8.0); Basophils % 0.2 % (0-1.3); Monocytes % 1.1 % (3.3-12.3)
[2018-06-07] MEDS ORDERED: NA CHLORIDE 0.9% 100 ML IV ONE (06:10)
[2018-06-07 06:28] LABS: Albumin 2.9 g/dL (3.4-5.0); Bilirubin Total 0.2 mg/dL (0.2-1.0); Phosphorus 3.3 mg/dL (2.5-4.9); Potassium 4.9 mmol/L (3.5-5.1); Protein, Total 6.4 g/dL (6.4-8.2)
[2018-06-07] MEDS ORDERED: GLUCAGON 1 MG/VIAL IM PRN (06:56)
[2018-06-07] MEDS ORDERED: INSULIN 70/30 100 UNITS/ML SQ ONE (06:56)
[2018-06-07] MEDS ORDERED: D50W 25 GM/50 ML SYRINGE IV PRN (06:56)
[2018-06-07 07:53] LABS: Blood Morphology Comment NOT SEEN (NOT SEEN); Platelet Estimate ADEQ; Platelets, Giant RARE
[2018-06-07] MEDS ORDERED: VANCOMYCIN 2 GM in NA CHLORIDE 0.9% 500 ML IVPB SCH (08:00)
[2018-06-07] MEDS: HOME MED 1 EA UNK (Fluticasone/Salmeterol [Advair 250-50 Diskus] 1 EACH) IH SCH ×2 (09:00→21:00)
[2018-06-07] MEDS ORDERED: HYDROXYZINE HCL 10 MG/5 ML SYRUP UD PO PRN (09:00)
[2018-06-07] MEDS ORDERED: FUROSEMIDE 40 MG TABLET PO SCH (09:00)
--- NOTE | 2018-06-07 09:22 | EKG ---
Test Date: 2018-06-06 Test Time: 18:43:31 Clinical Trials Systems Administrator: MEASUREMENT RESULTS: Intervals: Rate: 79 MI: 168 QRSD: 80 QT: 386 QTc: 442 [place]: P: 62 MI: 168 QRS: 55 T: 37 INTERPRETIVE STATEMENTS: Sinus rhythm with premature atrial complexes Otherwise normal ECG Compared to ECG 04/15/2018 11:34:49 No significant changes Electronically Signed On 06-07-18 09:21:27 CDT by Pollo Pinto
[2018-06-07] MEDS: GABAPENTIN 400 MG CAP PO SCH ×2 (09:26→20:36)
[2018-06-07] MEDS: METOPROLOL TAR 50 MG TAB PO SCH (09:26)
[2018-06-07] MEDS: SERTRALINE HCL 100 MG TAB PO SCH (09:26)
[2018-06-07] MEDS: ASPIRIN 81 MG CHEWABLE TABLET PO SCH (09:26)
[2018-06-07] MEDS: LISINOPRIL 20 MG TAB PO SCH ×2 (09:26→20:36)
[2018-06-07] MEDS: ENOXAPARIN 40 MG/0.4 ML SQ SCH (09:27)
--- NOTE | 2018-06-07 13:54 | P.HP ---
Certification for Inpatient Patient admitted to: Inpatient With expected LOS: >2 Midnights Patient will require the following post-hospital care: None Practitioner: I am a practitioner with admitting privileges, knowledge of patient current condition, hospital course, and medical plan of care. Services: Services provided to patient in accordance with Admission requirements found in Title 42 Section 412.3 of the Code of Federal Regulations Patient History Date of Service: 06/06/18 Reason for admission: Shortness of breath History of Present Illness: Patient is a 67-year-old female who came to the hospital with difficulty breathing. The patient has a history of COPD and CHF. Patient's chest x-ray showed some pulmonary edema. Patient was tachypneic and hypoxic. Patient has had frequent admissions for similar complaints. she is not completely compliant with her diet and medication regimen. At this time patient will need further evaluation. Patient will be admitted to the hospital for further evaluation. Allergies amitriptyline HCl [From Elavil] Allergy (Intermediate, Verified 06/06/18 22:46) Nausea/Vomiting ciprofloxacin [From Cipro] Allergy (Intermediate, Verified 06/06/18 22:46) Rash metronidazole Allergy (Verified 06/06/18 22:46) Itching morphine Allergy (Verified 06/06/18 22:46) Itching phenobarbital Allergy (Verified 06/06/18 22:46) Itching/Hives/Rash Home Medications: Albuterol Inhaler [Ventolin Inhaler*] 2 puff IH Q4H PRN 11/12/17 Aspirin 81 mg PO DAILY 11/12/17 Esomeprazole Mag Trihydrate [Nexium] 1 cap PO DAILY 11/12/17 Furosemide [Lasix*] 40 mg PO DAILY 11/12/17 Gabapentin [Neurontin*] 400 mg PO BID 11/12/17 Metoprolol Tartrate [Lopressor*] 50 mg PO DAILY 11/12/17 Oxycodone HCl/Acetaminophen [Endocet 10-325 mg Tablet] 1 each PO Q4H 11/12/17 Sertraline [Zoloft*] 200 mg PO DAILY 11/12/17 clonazePAM [Klonopin*] 1 mg PO BID PRN #50 tab 12/23/17 Lisinopril 40 mg PO BID 01/17/18 Fluticasone/Salmeterol [Advair 250-50 Diskus] 1 each IH BID #1 blst.w.dev Hydroxyzine HCl [Atarax] 20 mg PO BID PRN 06/06/18 - Past Medical/Surgical History Has patient received pneumonia vaccine in the past: Yes Diabetic: No -: HTN -: COPD -: CHF, diastolic dysfunction -: GERD -: Morbid obesity -: Anxiety -: DDD, DJD lumbar spine, chronic pain -: skin cancer -: History of Liver tumor -: Chronic back pain-Pain management-Dr. Herron -: Depression with anxiety -: Hernia -: Left ovarian tumor removal -: Hysterectomy -: Hernia Repair -: Lymphoma Left leg removed -: Melanoma removed from back Psychosocial/ Personal History: , Disabled, 5 children - Family History Father Medical History: Heart disease, Hypertension, Diabetes, Cancer, Liver disease Mother Medical History: Heart disease, Hypertension, Diabetes, Cancer Sister Medical History: Heart disease, Hypertension, Diabetes Brother Medical History: Hypertension - Social History Smoking Status: Never smoker Alcohol use: No CD- Drugs: No Caffeine use: Yes Place of Residence: Home Review of Systems 10-point ROS is otherwise unremarkable Physical Examination - Vital Signs Temperature: 96.6 F Blood Pressure: 155/66 Pulse: 76 Respirations: 16 Pulse Ox (%): 89 - Physical Exam General: Alert, In no apparent distress, Oriented x3, Obese HEENT: Atraumatic, PERRLA, Mucous membr. moist/pink, EOMI, Sclerae nonicteric Neck: Supple, 2+ carotid pulse no bruit, No LAD, Without JVD or thyroid abnormality Respiratory: Diminished, Crackles/rales Cardiovascular: Regular rate/rhythm, Normal S1 S2, Systolic murmur Gastrointestinal: Normal bowel sounds, Soft and benign, Non-distended, No tenderness Musculoskeletal: No tenderness, Swelling Integumentary: No rashes Neurological: Normal speech, Normal tone, Cranial nerves 3-12 intact, Normal affect, Abnormal gait, Abnormal strength Lymphatics: No axilla or inguinal lymphadenopathy - Studies Laboratory Data (last 24 hrs) 06/06/18 19:10: PT 12.9 H, INR 1.10 06/06/18 19:10: WBC 12.1 H, Hgb 12.3, Hct 38.8, Plt Count 217 06/06/18 19:10: Sodium 141, Potassium 4.1, BUN 18, Creatinine 0.98, Glucose 87, Magnesium 2.1, Total Bilirubin 0.5, AST 13 L, ALT 17, Alkaline Phosphatase 80, Lipase 46 L Microbiology Data (last 24 hrs): 06/06/18 19:15 Nasopharnyx Influenza Type A Antigen Screen - Final 06/06/18 19:15 Nasopharnyx Influenza Type B Antigen Screen - Final Assessment & Plan - Problems (Diagnosis) (1) Acute on chronic diastolic CHF (congestive heart failure) Onset Date: 07/26/17 Current Visit: No Status: Acute (2) Atrial fibrillation, new onset Onset Date: 12/18/16 Current Visit: No Status: Acute (3) COPD with exacerbation Onset Date: 02/20/16 Current Visit: No Status: Acute (4) Dyspnea Onset Date: 04/23/14 Current Visit: No Status: Acute Qualifiers: Dyspnea type: shortness of breath Qualified Code(s): R06.02 - Shortness of breath; R06.00 - Dyspnea, unspecified; R06.01 - Orthopnea (5) Elevated blood sugar Current Visit: No Status: Acute (6) Depression with anxiety Onset Date: 11/13/17 Current Visit: No Status: Chronic (7) Hypertension Onset Date: 03/27/16 Current Visit: No Status: Chronic Qualifiers: Hypertension type: essential hypertension (8) Morbid obesity Onset Date: 03/26/17 Current Visit: No Status: Chronic (9) Sleep apnea Onset Date: 12/18/16 Current Visit: No Status: Chronic Qualifiers: Sleep apnea type: unspecified type (10) Obstructive sleep apnea Onset Date: 11/13/17 Current Visit: No Status: Suspected - Plan 1. Echocardiogram has been done over the last 6 months and will review 2. nebs, steroids, and antibiotics 3. We will start patient on a Beta jina 4. Cardiology consultation if symptoms worsen 5. Aggressive diuresis 6. Strict I's and O's 7. Repeat CXR 8. Daily weights 9. Education regarding diet and treatment of congestive heart failure Discharge Plan: Home Plan to discharge in: Greater than 2 days - Advance Directives Does patient have a Living Will: Yes Does patient have a Durable POA for Healthcare: Yes - Code Status/Comfort Care Code Status Assessed: Yes Code Status: Full Code Critical Care: No Time Spent Managing PTS Care (In Minutes): 45
--- NOTE | 2018-06-07 14:09 | P.HP ---
Certification for Inpatient Patient admitted to: Inpatient With expected LOS: >2 Midnights Patient will require the following post-hospital care: None Practitioner: I am a practitioner with admitting privileges, knowledge of patient current condition, hospital course, and medical plan of care. Services: Services provided to patient in accordance with Admission requirements found in Title 42 Section 412.3 of the Code of Federal Regulations Patient History Date of Service: 06/06/18 Reason for admission: Shortness of breath History of Present Illness: Patient is a 67-year-old female who came to the hospital with difficulty breathing. The patient has a history of COPD and CHF. Patient's chest x-ray showed some pulmonary edema. Patient was tachypneic and hypoxic. Patient has had frequent admissions for similar complaints. she is not completely compliant with her diet and medication regimen. At this time patient will need further evaluation. Patient will be admitted to the hospital for further evaluation. Allergies amitriptyline HCl [From Elavil] Allergy (Intermediate, Verified 06/06/18 22:46) Nausea/Vomiting ciprofloxacin [From Cipro] Allergy (Intermediate, Verified 06/06/18 22:46) Rash metronidazole Allergy (Verified 06/06/18 22:46) Itching morphine Allergy (Verified 06/06/18 22:46) Itching phenobarbital Allergy (Verified 06/06/18 22:46) Itching/Hives/Rash Home Medications: RX: Albuterol Inhaler [Ventolin Inhaler*] 2 puff IH Q4H PRN 11/12/17 RX: Aspirin 81 mg PO DAILY 11/12/17 RX: Esomeprazole Mag Trihydrate [Nexium] 1 cap PO DAILY 11/12/17 RX: Furosemide [Lasix*] 40 mg PO DAILY 11/12/17 RX: Gabapentin [Neurontin*] 400 mg PO BID 11/12/17 RX: Metoprolol Tartrate [Lopressor*] 50 mg PO DAILY 11/12/17 RX: Oxycodone HCl/Acetaminophen [Endocet 10-325 mg Tablet] 1 each PO Q4H RX: Sertraline [Zoloft*] 200 mg PO DAILY 11/12/17 RX: clonazePAM [Klonopin*] 1 mg PO BID PRN #50 tab 12/23/17 RX: Lisinopril 40 mg PO BID 01/17/18 Fluticasone/Salmeterol [Advair 250-50 Diskus] 1 each IH BID #1 blst.w.dev RX: Hydroxyzine HCl [Atarax] 20 mg PO BID PRN 06/06/18 - Past Medical/Surgical History Has patient received pneumonia vaccine in the past: Yes Diabetic: No -: HTN -: COPD -: CHF, diastolic dysfunction -: GERD -: Morbid obesity -: Anxiety -: DDD, DJD lumbar spine, chronic pain -: skin cancer -: History of Liver tumor -: Chronic back pain-Pain management-Dr. Herron -: Depression with anxiety -: Hernia -: Left ovarian tumor removal -: Hysterectomy -: Hernia Repair -: Lymphoma Left leg removed -: Melanoma removed from back Psychosocial/ Personal History: , Disabled, 5 children - Family History Father Medical History: Heart disease, Hypertension, Diabetes, Cancer, Liver disease Mother Medical History: Heart disease, Hypertension, Diabetes, Cancer Sister Medical History: Heart disease, Hypertension, Diabetes Brother Medical History: Hypertension - Social History Smoking Status: Never smoker Alcohol use: No CD- Drugs: No Caffeine use: Yes Place of Residence: Home Review of Systems 10-point ROS is otherwise unremarkable Physical Examination - Vital Signs Temperature: 96.6 F Blood Pressure: 155/66 Pulse: 76 Respirations: 16 Pulse Ox (%): 89 - Physical Exam General: Alert, In no apparent distress, Oriented x3, Obese HEENT: Atraumatic, PERRLA, Mucous membr. moist/pink, EOMI, Sclerae nonicteric Neck: Supple, 2+ carotid pulse no bruit, No LAD, Without JVD or thyroid abnormality Respiratory: Crackles/rales, Expiratory wheezes Cardiovascular: Regular rate/rhythm, Normal S1 S2, Systolic murmur Gastrointestinal: Normal bowel sounds, Soft and benign, Non-distended, No tenderness Musculoskeletal: No tenderness, Swelling Integumentary: No rashes Neurological: Normal speech, Normal tone, Sensation intact, Cranial nerves 3-12 intact, Normal affect Lymphatics: No axilla or inguinal lymphadenopathy - Studies Laboratory Data (last 24 hrs) 06/06/18 19:10: PT 12.9 H, INR 1.10 06/06/18 19:10: WBC 12.1 H, Hgb 12.3, Hct 38.8, Plt Count 217 06/06/18 19:10: Sodium 141, Potassium 4.1, BUN 18, Creatinine 0.98, Glucose 87, Magnesium 2.1, Total Bilirubin 0.5, AST 13 L, ALT 17, Alkaline Phosphatase 80, Lipase 46 L Microbiology Data (last 24 hrs): 06/06/18 19:15 Nasopharnyx Influenza Type A Antigen Screen - Final 06/06/18 19:15 Nasopharnyx Influenza Type B Antigen Screen - Final Assessment & Plan - Problems (Diagnosis) (1) Acute on chronic diastolic CHF (congestive heart failure) Onset Date: 07/26/17 Current Visit: No Status: Acute (2) Atrial fibrillation, new onset Onset Date: 12/18/16 Current Visit: No Status: Acute (3) COPD with exacerbation Onset Date: 02/20/16 Current Visit: No Status: Acute (4) Dyspnea Onset Date: 04/23/14 Current Visit: No Status: Acute Qualifiers: Dyspnea type: shortness of breath Qualified Code(s): R06.02 - Shortness of breath; R06.00 - Dyspnea, unspecified; R06.01 - Orthopnea (5) Elevated blood sugar Current Visit: No Status: Acute (6) Depression with anxiety Onset Date: 11/13/17 Current Visit: No Status: Chronic (7) Hypertension Onset Date: 03/27/16 Current Visit: No Status: Chronic Qualifiers: Hypertension type: essential hypertension (8) Morbid obesity Onset Date: 03/26/17 Current Visit: No Status: Chronic (9) Sleep apnea Onset Date: 12/18/16 Current Visit: No Status: Chronic Qualifiers: Sleep apnea type: unspecified type (10) Obstructive sleep apnea Onset Date: 11/13/17 Current Visit: No Status: Suspected - Plan 1. Echocardiogram has been done over the last 6 months and will review 2. nebs, steroids, and antibiotics 3. We will start patient on a Beta jina 4. Cardiology consultation if symptoms worsen 5. Aggressive diuresis 6. Strict I's and O's 7. Repeat CXR 8. Daily weights 9. Education regarding diet and treatment of congestive heart failure - Advance Directives Does patient have a Living Will: Yes Does patient have a Durable POA for Healthcare: Yes - Code Status/Comfort Care Code Status: Full Code Critical Care: No Time Spent Managing PTS Care (In Minutes): 45
--- NOTE | 2018-06-07 17:50 | P.PN ---
Subjective Date of Service: 06/07/18 Chief Complaint: Shortness of breath Patient seen and examined at bedside. No family at bedside. Chart reviewed and case discussed with nursing staff. Reports improved breathing Continues to endorse lower extremity cellulitis/pain and swelling. Review of Systems 10-point ROS is otherwise unremarkable Physical Examination - Vital Signs Temperature: 96.6 F Blood Pressure: 155/66 Pulse: 76 Respirations: 16 Pulse Ox (%): 89 - Physical Exam General: Alert, Oriented x3, Mild distress HEENT: Atraumatic, PERRLA, EOMI Neck: Supple, JVD not distended Respiratory: Diminished, Expiratory wheezes Cardiovascular: Regular rate/rhythm, Normal S1 S2, Edema (2+ pitting edema bilaterally) Gastrointestinal: Normal bowel sounds, No tenderness Musculoskeletal: No tenderness Integumentary: Rash(es) Neurological: Normal speech, Normal tone, Normal affect - Studies Laboratory Data (last 24 hrs) 06/06/18 19:10: PT 12.9 H, INR 1.10 06/06/18 19:10: WBC 12.1 H, Hgb 12.3, Hct 38.8, Plt Count 217 06/06/18 19:10: Sodium 141, Potassium 4.1, BUN 18, Creatinine 0.98, Glucose 87, Magnesium 2.1, Total Bilirubin 0.5, AST 13 L, ALT 17, Alkaline Phosphatase 80, Lipase 46 L Microbiology Data (last 24 hrs): 06/06/18 19:15 Nasopharnyx Influenza Type A Antigen Screen - Final 06/06/18 19:15 Nasopharnyx Influenza Type B Antigen Screen - Final Assessment And Plan - Plan Dyspnea Acute on chronic diastolic CHF (congestive heart failure) Echocardiogram has been done over the last 6 months and will review Aggressive diuresis Strict I's and O's Repeat chest x-ray tomorrow Daily weights Atrial fibrillation, new onset Continue beta-jina Ofelia cardiology if symptoms worsen COPD with exacerbation nebs, steroids, and antibiotics Lower extremity cellulitis Continue IV antibiotics Will continue to monitor markings Depression with anxiety Stable Restart home medications Hypertension Will restart home medication Morbid obesity Obstructive sleep apnea Patient will need outpatient sleep study DVT prophylaxis: Lovenox GI prophylaxis: None Diet: Heart healthy/fluid restriction Disposition: Pending symptomatic improvement
[2018-06-07] MEDS: TEMAZEPAM 15 MG CAP PO PRN (23:38)
[2018-06-08] MEDS: FUROSEMIDE 40 MG/4 ML VIAL IV SCH ×3 (00:39→16:44)
[2018-06-08] MEDS: METHYLPREDNISOLONE 40 MG INJ IV SCH ×3 (00:40→16:44)
[2018-06-08] MEDS: ONDANSETRON 4 MG/2 ML VIAL IV PRN ×2 (00:42→22:21)
[2018-06-08] MEDS: ALBUTEROL 2.5 MG/3 ML NEB SOL NEB SCH ×4 (01:20→19:39)
[2018-06-08] MEDS: IPRATROPIUM BROM 0.5MG/2.5ML NEB SCH ×4 (01:20→19:39)
[2018-06-08] MEDS: ACETAMINOPHEN 325 MG TABLET PO SCH ×6 (03:00→22:24)
[2018-06-08] MEDS: OXYCODONE HCL 5 MG TAB PO SCH ×6 (03:00→22:22)
[2018-06-08] MEDS: clonazePAM 1 MG TAB PO PRN ×3 (03:58→22:21)
[2018-06-08] MEDS: AMPICILLIN/SULBACT 3 GM in NA CHLORIDE 0.9% 100 ML IVPB SCH ×6 (05:21→23:50)
[2018-06-08] MEDS: PANTOPRAZOLE 40MG TABLET PO SCH (05:21)
[2018-06-08 08:40] LABS: Albumin 3.1 g/dL (3.4-5.0); Bilirubin Total 0.2 mg/dL (0.2-1.0); Potassium 4.8 mmol/L (3.5-5.1); Protein, Total 6.7 g/dL (6.4-8.2)
[2018-06-08] MEDS: HOME MED 1 EA UNK (Fluticasone/Salmeterol [Advair 250-50 Diskus] 1 EACH) IH SCH ×2 (09:00→21:00)
[2018-06-08] MEDS: VANCOMYCIN 2 GM in NA CHLORIDE 0.9% 500 ML IVPB SCH (09:17)
[2018-06-08] MEDS: ENOXAPARIN 40 MG/0.4 ML SQ SCH (09:18)
[2018-06-08] MEDS: GABAPENTIN 400 MG CAP PO SCH ×2 (09:18→21:22)
[2018-06-08] MEDS: LISINOPRIL 20 MG TAB PO SCH ×2 (09:19→21:19)
[2018-06-08] MEDS: METOPROLOL TAR 50 MG TAB PO SCH (09:20)
[2018-06-08] MEDS: SERTRALINE HCL 100 MG TAB PO SCH (09:20)
[2018-06-08] MEDS: ASPIRIN 81 MG CHEWABLE TABLET PO SCH (09:21)
--- NOTE | 2018-06-08 15:42 | P.PN ---
Subjective Date of Service: 06/08/18 Chief Complaint: Shortness of breath Patient seen and examined at bedside. No family at bedside. Chart reviewed and case discussed with nursing staff. Reports improved breathing Continues to endorse lower extremity cellulitis/pain and swelling. Review of Systems 10-point ROS is otherwise unremarkable Physical Examination - Vital Signs Temperature: 98.0 F Blood Pressure: 156/72 Pulse: 83 Respirations: 20 Pulse Ox (%): 98 - Physical Exam General: Alert, Oriented x3, Mild distress HEENT: Atraumatic, PERRLA, EOMI Neck: Supple, JVD not distended Respiratory: Clear to auscultation bilaterally, Normal air movement Cardiovascular: Regular rate/rhythm, Normal S1 S2 Gastrointestinal: Normal bowel sounds, No tenderness Musculoskeletal: No tenderness Integumentary: Skin breakdown, Skin lesion, Tenderness/swelling, Erythema Neurological: Normal speech, Normal tone, Normal affect Assessment And Plan - Plan Dyspnea Acute on chronic diastolic CHF (congestive heart failure) Echocardiogram has been done over the last 6 months and will review Aggressive diuresis Strict I's and O's Daily weights Atrial fibrillation, new onset Continue beta-jina Will consult cardiology if symptoms worsen COPD with exacerbation nebs, steroids, and antibiotics Lower extremity cellulitis Continue IV antibiotics Will continue to monitor markings Depression with anxiety Stable Restart home medications Hypertension Will restart home medication Morbid obesity Obstructive sleep apnea Patient will need outpatient sleep study DVT prophylaxis: Lovenox GI prophylaxis: None Diet: Heart healthy/fluid restriction Disposition: Pending symptomatic improvement
[2018-06-08] MEDS: MUPIROCIN 2% OINT 22GM TUBE TOP SCH (21:17)
[2018-06-08] MEDS: TEMAZEPAM 15 MG CAP PO PRN (22:15)
[2018-06-08] MEDS ORDERED: METOPROLOL TAR 25 MG TAB PO ONE (23:19)
[2018-06-09] MEDS: FUROSEMIDE 40 MG/4 ML VIAL IV SCH ×3 (00:14→16:46)
[2018-06-09] MEDS: METHYLPREDNISOLONE 40 MG INJ IV SCH ×3 (00:14→16:47)
[2018-06-09] MEDS: ALBUTEROL 2.5 MG/3 ML NEB SOL NEB SCH ×5 (01:20→20:30)
[2018-06-09] MEDS: IPRATROPIUM BROM 0.5MG/2.5ML NEB SCH ×5 (01:20→20:30)
[2018-06-09] MEDS: OXYCODONE HCL 5 MG TAB PO SCH ×6 (03:09→22:16)
[2018-06-09] MEDS: ACETAMINOPHEN 325 MG TABLET PO SCH ×6 (03:10→22:17)
[2018-06-09] MEDS: METOPROLOL TAR 25 MG TAB PO SCH ×3 (05:47→18:18)
[2018-06-09] MEDS: AMPICILLIN/SULBACT 3 GM in NA CHLORIDE 0.9% 100 ML IVPB SCH (05:48)
[2018-06-09] MEDS: PANTOPRAZOLE 40MG TABLET PO SCH (06:32)
--- NOTE | 2018-06-09 07:30 | EKG ---
Test Date: 2018-06-08 Test Time: 12:33:47 Glass Curvature Gauger: DEANNA MEASUREMENT RESULTS: Intervals: Rate: 76 AK: 166 QRSD: 88 QT: 378 QTc: 425 [place]: P: 85 AK: 166 QRS: 58 T: 45 INTERPRETIVE STATEMENTS: Sinus rhythm with premature ventricular complexes Otherwise normal ECG Compared to ECG 06/06/2018 18:43:31 PVC s now present Electronically Signed On 06-09-18 07:30:09 CDT by Krystian Charles
[2018-06-09] MEDS: ENOXAPARIN 40 MG/0.4 ML SQ SCH (08:05)
[2018-06-09] MEDS: LISINOPRIL 20 MG TAB PO SCH ×2 (08:05→20:17)
[2018-06-09] MEDS: SERTRALINE HCL 100 MG TAB PO SCH (08:06)
[2018-06-09] MEDS: GABAPENTIN 400 MG CAP PO SCH ×2 (08:06→20:17)
[2018-06-09] MEDS: ASPIRIN 81 MG CHEWABLE TABLET PO SCH (08:06)
[2018-06-09] MEDS: MUPIROCIN 2% OINT 22GM TUBE TOP SCH ×2 (08:07→20:16)
[2018-06-09] MEDS: VANCOMYCIN 2 GM in NA CHLORIDE 0.9% 500 ML IVPB SCH (08:08)
[2018-06-09] MEDS: HOME MED 1 EA UNK (Fluticasone/Salmeterol [Advair 250-50 Diskus] 1 EACH) IH SCH ×2 (08:10→20:17)
--- NOTE | 2018-06-09 11:46 | RAD REPORT ---
EXAM DESCRIPTION: Vikash Elliott And Leslie (2 Views)06/09/2018 11:38 am CLINICAL HISTORY: Cough COMPARISON: June 06 FINDINGS: Several areas of subsegmental atelectasis have developed within the lungs bilaterally. Remainder of the lungs are clear. Heart is mildly enlarged
[2018-06-09] MEDS: CEFTRIAXONE/SWI 1gm 1 GM/10 ML SYR IV SCH ×2 (11:47→20:18)
[2018-06-09] MEDS: clonazePAM 1 MG TAB PO PRN ×2 (11:50→23:39)
--- NOTE | 2018-06-09 12:20 | EKG ---
Test Date: 2018-06-08 Test Time: 23:10:04 Truck Sales Representative: RT MEASUREMENT RESULTS: Intervals: Rate: 71 MI: 166 QRSD: 86 QT: 370 QTc: 402 [place]: P: 80 MI: 166 QRS: 21 T: 52 INTERPRETIVE STATEMENTS: Normal sinus rhythm Cannot rule out Anterior infarct, age undetermined Abnormal ECG Compared to ECG 06/08/2018 12:33:47 Myocardial infarct finding now present Ventricular premature complex(es) no longer present Electronically Signed On 06-09-18 12:19:44 CDT by Krystian Charles
--- NOTE | 2018-06-09 17:19 | P.PN ---
Subjective Date of Service: 06/09/18 Chief Complaint: Shortness of breath Subjective: Improving Patient seen and examined at bedside. No family at bedside. Chart reviewed and case discussed with nursing staff. Reports improved breathing though still getting short of breath with exertion Continues to endorse lower extremity cellulitis/pain and swelling. Review of Systems 10-point ROS is otherwise unremarkable Physical Examination - Vital Signs Temperature: 97.7 F Blood Pressure: 156/77 Pulse: 63 Respirations: 18 Pulse Ox (%): 98 - Physical Exam General: Alert, In no apparent distress, Oriented x3, Other (Morbidly obese) HEENT: Atraumatic, PERRLA, EOMI Neck: Supple, JVD not distended Respiratory: Normal air movement, Expiratory wheezes Cardiovascular: Regular rate/rhythm, Normal S1 S2 Gastrointestinal: Normal bowel sounds, No tenderness Musculoskeletal: No tenderness Integumentary: No rashes Neurological: Normal speech, Normal tone, Normal affect - Studies Microbiology Data (last 24 hrs): 06/06/18 18:35 Clean Catch Urine [place] Count - Final BETWEEN 10,000 & 100,000 CFU/ML 06/06/18 18:35 Clean Catch Urine - Final Escherichia Coli Assessment And Plan - Plan Dyspnea Acute on chronic diastolic CHF (congestive heart failure) Echocardiogram has been done over the last 6 months and will review Aggressive diuresis Strict I's and O's Daily weights Atrial fibrillation, new onset Continue beta-jina Will consult cardiology if symptoms worsen COPD with exacerbation nebs, steroids, and antibiotics Lower extremity cellulitis Continue IV antibiotics Will continue to monitor markings Depression with anxiety Stable Restart home medications Hypertension Will restart home medication Morbid obesity Obstructive sleep apnea Patient will need outpatient sleep study DVT prophylaxis: Lovenox GI prophylaxis: None Diet: Heart healthy/fluid restriction Disposition: Pending symptomatic improvement
[2018-06-09 18:06] LABS: Absolute Lymphocytes (CBC) 0.8 K/uL (0.7-4.9); Absolute Monocytes 0.7 K/uL (0.1-1.3); Absolute Neutrophil 9.4 K/uL (1.8-8.0); Basophils % 0.1 % (0-1.3); Hematocrit 36.6 % (36.0-45.0); Lymphocytes % 7.3 % (15.3-44.8); MPV 7.9 fL (7.6-11.3); Monocytes % 6.8 % (3.3-12.3); RBC Red Blood Cell Count 4.19 M/uL (3.86-4.86)
[2018-06-09 18:18] LABS: Albumin 3.2 g/dL (3.4-5.0); Bilirubin Total 0.2 mg/dL (0.2-1.0); Potassium 5.1 mmol/L (3.5-5.1); Protein, Total 6.9 g/dL (6.4-8.2)
[2018-06-09] MEDS: ONDANSETRON 4 MG/2 ML VIAL IV PRN (19:19)
[2018-06-10] MEDS: METHYLPREDNISOLONE 40 MG INJ IV SCH ×3 (00:16→17:00)
[2018-06-10] MEDS: FUROSEMIDE 40 MG/4 ML VIAL IV SCH ×3 (00:16→17:08)
[2018-06-10] MEDS: OXYCODONE HCL 5 MG TAB PO SCH ×6 (02:27→22:45)
[2018-06-10] MEDS: ACETAMINOPHEN 325 MG TABLET PO SCH ×6 (02:28→22:45)
[2018-06-10] MEDS: IPRATROPIUM BROM 0.5MG/2.5ML NEB SCH ×4 (02:45→19:21)
[2018-06-10] MEDS: ALBUTEROL 2.5 MG/3 ML NEB SOL NEB SCH ×4 (02:45→19:21)
[2018-06-10 04:57] VITALS: BMI 67.4
[2018-06-10] MEDS: METOPROLOL TAR 25 MG TAB PO SCH ×2 (06:25→17:09)
[2018-06-10] MEDS: PANTOPRAZOLE 40MG TABLET PO SCH (06:25)
[2018-06-10] MEDS: HOME MED 1 EA UNK (Fluticasone/Salmeterol [Advair 250-50 Diskus] 1 EACH) IH SCH ×2 (09:00→21:00)
[2018-06-10] MEDS: CEFTRIAXONE/SWI 1gm 1 GM/10 ML SYR IV SCH ×2 (09:19→22:44)
[2018-06-10] MEDS: VANCOMYCIN 2 GM in NA CHLORIDE 0.9% 500 ML IVPB SCH ×2 (09:19→11:18)
[2018-06-10] MEDS: ENOXAPARIN 40 MG/0.4 ML SQ SCH (09:19)
[2018-06-10] MEDS: LISINOPRIL 20 MG TAB PO SCH ×2 (09:20→22:44)
[2018-06-10] MEDS: ASPIRIN 81 MG CHEWABLE TABLET PO SCH (09:21)
[2018-06-10] MEDS: SERTRALINE HCL 100 MG TAB PO SCH (09:21)
[2018-06-10] MEDS: GABAPENTIN 400 MG CAP PO SCH ×2 (09:21→22:43)
[2018-06-10] MEDS: MUPIROCIN 2% OINT 22GM TUBE TOP SCH ×2 (09:22→22:46)
[2018-06-10 19:19] LABS: Absolute Lymphocytes (CBC) 0.7 K/uL (0.7-4.9); Absolute Monocytes 0.7 K/uL (0.1-1.3); Absolute Neutrophil 8.8 K/uL (1.8-8.0); Basophils % 0.1 % (0-1.3); Eosinophils % 0.1 % (0-4.4); Hematocrit 36.9 % (36.0-45.0); Lymphocytes % 6.6 % (15.3-44.8); Monocytes % 6.5 % (3.3-12.3); RBC Red Blood Cell Count 4.23 M/uL (3.86-4.86)
[2018-06-10 19:28] LABS: Albumin 2.8 g/dL (3.4-5.0); Bilirubin Total 0.1 mg/dL (0.2-1.0); Potassium 4.8 mmol/L (3.5-5.1); Protein, Total 6.3 g/dL (6.4-8.2)
--- NOTE | 2018-06-10 21:21 | PN ---
History: The patient is seen and examined. Chart reviewed and case discussed with RN. The patient was adamant regarding not switching her home health to 1 that has a CHF program. She has had multipl e visits to the hospital due to her CHF, largely due to noncompliance and other lack of education wit h her health process. Medications: List reviewed. Code Status: Full. Physical Examination: Vital Signs: Temperature 97.7, heart rate 60, blood pressure 177/75, respirations 16, O2 98% on 3 L via nasal cannula. General: Awake, alert, oriented x3. Elderly female, morbid obesity, BMI 67. CV: S1, S2. Regular rate and rhythm. Peripheral pulses present. Respiratory: Moving air well at the apices. Diminished breath sounds at the bases. No wheezing. N o use of accessory muscles. Gastrointestinal: Abdomen is soft, nontender, nondistended. Positive bowel sounds. No guarding or rigidity. Extremities: No clubbing or cyanosis. The patient has diffuse peripheral edema. Skin: Erythema of the lower extremities. Neurologic: Nonfocal. Cranial nerves 2-12 intact grossly. Speech is normal. Laboratory Data: Creatinine is 1.03. WBC pending. Urine culture growing Escherichia coli. Influen za screen is negative. Blood cultures, coagulase-negative Staph, which is likely contaminant. Chest x-ray from 06/09/2018, personally reviewed, shows areas of subsegmental atelectasis within the lungs bilaterally. Remainder of the lungs are clear. Assessment And Plan: A 67-year-old female with: 1.Acute on chronic diastolic heart failure. The last known EF is from October 2017 shows EF of 60-69 %. We will continue with diuresis, fluid restriction and sodium restriction. We will monitor I's an d O's. 2.New onset atrial fibrillation. Continue beta-jina. We will need to follow up outpatient with Cardiology. The patient is on aspirin. Currently back in sinus rhythm. 3.Chronic obstructive pulmonary disease with acute exacerbation. We will continue antibiotics, ster oids and nebulizer treatments, improving. Chest x-ray shows clear lungs other than scattered subsegm ental atelectasis. 4.Lower extremity cellulitis. Continue IV antibiotics and monitor for improvement. 5.Acute cystitis without hematuria. Urine culture growing out Escherichia coli. We will continue w ith IV antibiotics. 6.Depression with anxiety, stable. 7.Morbid obesity, BMI 67. 8.Essential hypertension. 9.Obstructive sleep apnea. The patient will need sleep study as an outpatient to qualify for CPAP. 10.Deep vein thrombosis prophylaxis with Lovenox. Plan: The patient refused to change her home health to an agency that has a CHF program. The roger t has had multiple episodes and readmissions to the hospital. She is noncompliant, has some social i ssues as well and difficulty getting to doctor's appointments due to her medical condition and super morbid obesity. We will work with social services technician to adjust her current home health. Likely discharge in the next 24-48 hours depending on clinical response. /LUIS MIGUEL Voice ID: [id number] Report ID: [id number]
[2018-06-10] MEDS: clonazePAM 1 MG TAB PO PRN (22:47)
[2018-06-11] MEDS: IPRATROPIUM BROM 0.5MG/2.5ML NEB SCH ×2 (01:30→08:43)
[2018-06-11] MEDS: ALBUTEROL 2.5 MG/3 ML NEB SOL NEB SCH ×2 (01:30→08:43)
[2018-06-11] MEDS: FUROSEMIDE 40 MG/4 ML VIAL IV SCH ×2 (01:40→09:13)
[2018-06-11] MEDS: METHYLPREDNISOLONE 40 MG INJ IV SCH ×2 (01:40→09:14)
[2018-06-11] MEDS: OXYCODONE HCL 5 MG TAB PO SCH ×3 (02:27→11:29)
[2018-06-11] MEDS: ACETAMINOPHEN 325 MG TABLET PO SCH ×3 (02:27→11:00)
[2018-06-11] MEDS: METOPROLOL TAR 25 MG TAB PO SCH (06:40)
[2018-06-11] MEDS: PANTOPRAZOLE 40MG TABLET PO SCH (06:40)
[2018-06-11 06:41] LABS: Absolute Lymphocytes (CBC) 0.8 K/uL (0.7-4.9); Absolute Monocytes 0.5 K/uL (0.1-1.3); Absolute Neutrophil 8.4 K/uL (1.8-8.0); Basophils % 0.2 % (0-1.3); Hematocrit 38.6 % (36.0-45.0); Lymphocytes % 7.8 % (15.3-44.8); MPV 8.2 fL (7.6-11.3); Monocytes % 5.2 % (3.3-12.3); RBC Red Blood Cell Count 4.44 M/uL (3.86-4.86)
[2018-06-11 06:58] LABS: Magnesium 2.2 mg/dL (1.8-2.4); Phosphorus 3.1 mg/dL (2.5-4.9)
[2018-06-11 07:00] LABS: Albumin 2.9 g/dL (3.4-5.0); Bilirubin Total 0.2 mg/dL (0.2-1.0); Potassium 4.6 mmol/L (3.5-5.1); Protein, Total 6.3 g/dL (6.4-8.2)
[2018-06-11] MEDS: HOME MED 1 EA UNK (Fluticasone/Salmeterol [Advair 250-50 Diskus] 1 EACH) IH SCH (09:00)
[2018-06-11] MEDS: SERTRALINE HCL 100 MG TAB PO SCH (09:14)
[2018-06-11] MEDS: ASPIRIN 81 MG CHEWABLE TABLET PO SCH (09:14)
[2018-06-11] MEDS: LISINOPRIL 20 MG TAB PO SCH (09:14)
[2018-06-11] MEDS: GABAPENTIN 400 MG CAP PO SCH (09:14)
[2018-06-11] MEDS: MUPIROCIN 2% OINT 22GM TUBE TOP SCH (09:15)
[2018-06-11] MEDS: ENOXAPARIN 40 MG/0.4 ML SQ SCH (09:15)
[2018-06-11] MEDS: CEFTRIAXONE/SWI 1gm 1 GM/10 ML SYR IV SCH (09:19)
[2018-06-11] MEDS: VANCOMYCIN 2 GM in NA CHLORIDE 0.9% 500 ML IVPB SCH (09:19)
[2018-06-11 09:35] VITALS: O2SAT 94
[2018-06-11] MEDS: clonazePAM 1 MG TAB PO PRN (11:33)
[2018-06-11 12:30] VITALS: BP 144/66; TEMP 98
--- NOTE | 2018-06-12 13:27 | DS ---
Date of Discharge: 06/11/2018 Consultants: None. Admitting Diagnoses: 1.Acute on chronic diastolic heart failure. 2.New onset atrial fibrillation. 3.Chronic obstructive pulmonary disease with exacerbation, acute. 4.Dyspnea. 5.Elevated blood sugar levels. 6.Depression with anxiety. 7.Essential hypertension. 8.Morbid obesity, BMI 67. 9.Obstructive sleep apnea. Discharge Diagnoses: 1.Acute on chronic diastolic heart failure, EF of 60% to 69%. 2.New-onset atrial fibrillation, currently back in sinus rhythm. 3.Chronic obstructive pulmonary disease with acute exacerbation, improved. 4.Lower extremity cellulitis, resolved. 5.Acute cystitis without hematuria secondary to Escherichia coli. 6.Depression with anxiety. 7.Morbid obesity, BMI 67. 8.Essential hypertension, stable. 9.Obstructive sleep apnea. The patient needs outpatient sleep study. Hospital Course: The patient is a 67-year-old female, who has had multiple admissions to the [facility] due to her difficulty breathing. She has COPD, CHF, is noncompliant with her fluid restriction and sodium restriction, comes in with hypoxia, tachypnea, shortness of breath. She was found to have ac chuy on chronic exacerbation of her CHF and chronic obstructive pulmonary disease. Chest x-ray showed subsegmental atelectasis, otherwise clear lungs. Her Doppler was negative for DVT in both legs. Dasia zuniga did have some erythema and was found to have cellulitis of the lower extremities. She was started on broad-spectrum IV antibiotics and cultures were obtained, which did not show any growth. Her flu screen was also negative. She did have a UTI secondary to Escherichia coli, which was treated with I V antibiotics. The patient's white count normalized. Her condition improved. The patient was back to her baseline. She was also started on nebulizer treatments and steroids for her COPD. The roger t was then cleared for discharge. She was recommended to switch to home health agency that has a CHF program, however, she adamantly refused. She understands the risks of having a home health that hernandez s not have a CHF program, which would be more beneficial for her in order to prevent further CHF exac erbations. Her current home health agency wished to change, was contacted, and requested to make phoebe nges to her treatment regimen including monitoring her daily weights, calling her daily to ask about her weight, assisting in fluid restriction and sodium restriction diet. Awaiting her daily contactin g her PCP if she has more than 3 pounds weight gain and discharged to take an extra dose of Lasix and to report to her PCP to manage her CHF and keep her out of the hospital. The patient was then disch arged home with home health in a stable condition. Activity: Fall precautions. Followup: Follow up with primary care physician in 2 to 3 days. Follow up with Cardiology in 1 to 2 weeks. Return to ER for worsening condition. Medications: As per medication reconciliation list. Physical Examination: General: Awake, alert, and oriented x3. Morbidly obese female. CV: S1, S2. Regular rate and rhythm. Peripheral pulses are present. Respiratory: Diminished breath sounds at the bases. No wheezing or stridor. Gastrointestinal: Abdomen is soft, nontender, nondistended. Positive bowel sounds. Extremities: No clubbing or cyanosis. The patient has peripheral edema 3+ bilateral lower extremiti es. Skin: Chronic venous stasis changes. No further erythema of the lower extremities. Neurologic: Nonfocal. Total time spent discharging the patient was 45 minutes. FLYNN Voice ID: [id number] Report ID: [id number]
== END 2018-06-11 12:52 | disposition home health service (06) | DRG 292 ==
LOC: ER 18:17 → ERHOLD 20:53 → 4TH 21:29
PROVIDERS: ADMIT Hospitalist; ATTEND Family Medicine
DX: I11.0 Hypertensive heart disease with heart failure (principal); J44.1 Chronic obstructive pulmonary disease with (acute) exacerbation; N30.00 Acute cystitis without hematuria; Z68.44 Body mass index [BMI] 60.0-69.9, adult; L03.116 Cellulitis of left lower limb; L03.115 Cellulitis of right lower limb; I50.33 Acute on chronic diastolic (congestive) heart failure; I48.91 Unspecified atrial fibrillation; B96.20 Unspecified Escherichia coli [E. coli] as the cause of diseases classified elsewhere; F32.9 Major depressive disorder, single episode, unspecified; F41.9 Anxiety disorder, unspecified; E66.01 Morbid (severe) obesity due to excess calories; G47.33 Obstructive sleep apnea (adult) (pediatric); Z91.11 Patient's noncompliance with dietary regimen
CPT/HCPCS: 36415; 71045; 71046; 80048; 80053; 80076; 80202; 81003; 81015; 82565; 82962; 83036; 83605; 83690; 83735; 83880; 84100; 84145; 84484; 85025; 85610; 87040; 87077; 87086; 87088; 87186; 87205; 87804; 93005; 93970; 94640; 96365; 96372; 96375; 97116; 97161; 97530; 99285; J0295; J0696; J1650; J1940; J2405; J2543; J2920; J2930; J3010; J7030

== ENCOUNTER 2018-08-13 18:46 | Inpatient (IN) | payer OTHER ==
--- NOTE | 2018-08-13 19:40 | RAD REPORT ---
EXAM DESCRIPTION: RAD - Chest Single View - 08/13/2018 7:32 pm CLINICAL HISTORY: DYSPNEA Chest pain. COMPARISON: Chest Pa And Lat (2 Views) dated 06/09/2018; Chest Single View dated 06/06/2018; Chest Sin gle View dated 04/15/2018; Chest Single View dated 04/04/2018 FINDINGS: Portable technique limits examination quality. The lungs are underinflated with vascular crowding. The heart is moderately enlarged in size. No disp laced fractures.
[2018-08-13] MEDS ORDERED: FUROSEMIDE 20 MG/ 2ML VIAL ONE (20:04)
[2018-08-13] MEDS ORDERED: FUROSEMIDE 40 MG/4 ML VIAL ONE (20:04)
[2018-08-13 20:21] LABS: Absolute Lymphocytes (CBC) 2.3 K/uL (0.7-4.9); Absolute Neutrophil 8.1 K/uL (1.8-8.0); Basophils % 0.6 % (0-1.3); Eosinophils % 3.4 % (0-4.4); Hematocrit 38.8 % (36.0-45.0); Lymphocytes % 19.2 % (15.3-44.8); MPV 7.2 fL (7.6-11.3); Monocytes % 8.6 % (3.3-12.3); RBC Red Blood Cell Count 4.48 M/uL (3.86-4.86)
[2018-08-13 20:45] LABS: BUN Blood Urea Nitrogen 14 mg/dL (7-18); Bicarbonate 29 mmol/L (21-32); Glucose Level 92 mg/dL (74-106); NT PRO-BNP 939 pg/mL (<125); Protime INR 1.02; Sodium Level 142 mmol/L (136-145); Troponin (Emerg Dept Use Only) < 0.02 ng/mL (0.0-0.045)
[2018-08-13 20:57] LABS: Urine Blood 1+ (NEG); Urine Glucose NEGATIVE (NEG); Urine Protein 1+ (NEG); Urine Specific Gravity 1.015 (1.005-1.030); Urine pH 5.5 (5.0-7.0)
[2018-08-13 21:01] LABS: Urine Bacteria >50 /HPF (<20); Urine Culture Reflex Order REFLEXED; Urine RBC <5 /HPF (NONE SEEN)
[2018-08-13] MEDS ORDERED: CEFTRIAXONE/SWI 1gm 1 GM/10 ML SYR ONE (21:44)
--- NOTE | 2018-08-13 23:01 | ER ---
Nurse's Notes [facility] Name: Amy Velasquez Age: 68 yrs Sex: Female : 1950 Arrival Date: 08/13/2018 Time: 18:49 Bed 13 Private MD: Lucho Catalan Diagnosis: Heart failure;Hypoxemia;Cystitis Presentation: 08/13 19:01 Presenting complaint: SOB, sore throat, night sweats, blood in urine, and pain with hb urination x 2 days. Transition of care: patient was not received from another setting of care. Onset of symptoms was August 11, 2018. Risk Assessment: Do you want to hurt yourself or someone else? Patient reports no desire to harm self or others. Care prior to arrival: None. 19:01 Method Of Arrival: Wheelchair hb 19:01 Acuity: BHARTI 3 hb 19:10 Initial Sepsis Screen: Does the patient meet any 2 criteria? No. Patient's initial fc sepsis screen is negative. Does the patient have a suspected source of infection? No. Patient's initial sepsis screen is negative. Historical: - Allergies: 19:03 Amitriptyline; hb 19:03 Cipro; hb 19:03 Morphine (rash, Itching); hb 19:03 Phenobarbital; hb - PMHx: 19:03 ADD/ADHD; Anxiety; Asthma; Atrial Fib; CANCER, SKIN; CHF; COPD; Degenerative disc hb disease; Hernia; Hypertension; - PSHx: 19:03 Hernia repair; Tubal ligation; Hysterectomy; hb - Immunization history:: Adult Immunizations up to date. - Social history:: Smoking status: Patient/guardian denies using tobacco. - Ebola Screening: : No symptoms or risks identified at this time. Screenin:30 Abuse screen: Denies threats or abuse. Nutritional screening: No deficits noted. fc Tuberculosis screening: No symptoms or risk factors identified. Fall Risk Fall in past 12 months (25 points). Secondary diagnosis (15 points) impaired mobility, IV access (20 points). Ambulatory Aid- Crutches/Cane/Walker (15 pts). Gait- Weak (10 pts.). Mental Status- Overestimates/Forgets Limitations (15 pts.). Total Omer Fall Scale indicates High Risk Score (45 or more points). Fall prevention measures have been instituted. Side Rails Up X 2 Placed Close to Nursing Station Frequent Obs/Assessments Occuring Family Present and informed to notify staff if the need to leave the bedside As available patient and family educated on Fall Prevention Program and Strategies. Assessment: 19:15 General: Appears in no apparent distress. comfortable, obese, Behavior is calm, aa1 cooperative, appropriate for age. Pain: Complains of pain in suprapubic area Pain began 2-3 days ago. Neuro: Level of Consciousness is awake, alert, obeys commands, Oriented to person, place, time, situation, Moves all extremities. Full function Speech is normal. Cardiovascular: Denies chest pain, diaphoresis, palpitations, Heart tones S1 S2 present Rhythm is regular. Respiratory: Reports shortness of breath on exertion Airway is patent Respiratory effort is even, unlabored, Respiratory pattern is regular, symmetrical, Breath sounds are clear bilaterally. Denies cough. GI: Reports nausea. : Reports burning with urination, inability to void, pain in suprapubic area. EENT: No signs and/or symptoms were reported regarding the EENT system. Derm: Skin is intact, is healthy with good turgor, Skin is pink, warm \T\ dry. Musculoskeletal: Circulation, motion, and sensation intact. Capillary refill < 3 seconds, Range of motion: intact in all extremities. 19:32 Reassessment: Patient appears in no apparent distress at this time. Patient is alert, aa1 oriented x 3, equal unlabored respirations, skin warm/dry/pink. Pt requesting to be placed on O2. Reports she normally uses O2 at 2L PRN at home. RA O2 sat at this time 94% which increased to 97% on 2L NC. 20:15 Reassessment: Patient appears in no apparent distress at this time. Patient and/or aa1 family updated on plan of care and expected duration. Pain level reassessed. Patient is alert, oriented x 3, equal unlabored respirations, skin warm/dry/pink. 2nd IV attempt unsuccessful; per MD will hold lasix and wait for lab results to determine if IV is needed. 21:24 Reassessment: Patient appears in no apparent distress at this time. Patient and/or aa1 family updated on plan of care and expected duration. Pain level reassessed. Patient is alert, oriented x 3, equal unlabored respirations, skin warm/dry/pink. Per MD will go ahead and attempt IV access and additional labs. Charge nurse to attempt midline. 22:30 Reassessment: Patient appears in no apparent distress at this time. Patient and/or aa1 family updated on plan of care and expected duration. Pain level reassessed. Patient is alert, oriented x 3, equal unlabored respirations, skin warm/dry/pink. Pt to be admitted to hospital. 23:05 Reassessment: Patient appears in no apparent distress at this time. Patient and/or aa1 family updated on plan of care and expected duration. Pain level reassessed. Patient is alert, oriented x 3, equal unlabored respirations, skin warm/dry/pink. Awaiting bed assignment for admission. 23:30 Reassessment: Pt requesting to take one of her Percocet that she has in her purse; Dr. del Rivera notified and reports pt may take one of her pills from her personal supply at this time. Vital Signs: 19:02 BP 142 / 75; Pulse 80; Resp 20; Temp 97.4; Pulse Ox 91% on R/A; Weight 169.64 kg; hb Height 5 ft. 4 in. (162.56 cm); Pain 7/10; 20:00 BP 155 / 82; Pulse 71; Resp 18; Pulse Ox 97% on 2 lpm NC; aa1 21:00 BP 146 / 73; Pulse 78; Resp 18; Pulse Ox 97% on 2 lpm NC; aa1 22:15 BP 128 / 59; Pulse 73; Resp 18; Pulse Ox 100% on 2 lpm NC; aa1 23:30 BP 146 / 77; Pulse 64; Resp 18; Temp 97.7; Pulse Ox 99% on 2 lpm NC; Pain 8/10; aa1 08/14 00:15 BP 156 / 80; Pulse 66; Resp 18; Temp 97.5; Pulse Ox 99% on 2 lpm NC; Pain 5/10; aa1 08/13 19:02 Body Mass Index 64.20 (169.64 kg, 162.56 cm) hb ED Course: 08/13 18:49 Patient arrived in ED. mr 18:49 Lucho Catalan MD is Private Physician. mr 19:02 Triage completed. hb 19:02 Arm band placed on. hb 19:08 Felice Rivera MD is Attending Physician. gs 19:32 XRAY Chest (1 view) In Process Unspecified. EDMS 19:32 Oxygen administration via nasal cannula \T\ 2L/min. aa1 19:48 Beverly Chanel, RN is Primary Nurse. aa1 20:13 Initial lab(s) drawn, by me, sent to lab. Missed attempt(s): 20 gauge in right upper aa1 arm. Bleeding controlled, band aid applied, catheter tip intact. 20:17 EKG done, by ED staff, reviewed by Felice Rivera MD. aa1 20:20 Song cath inserted, using sterile technique, 16 Fr., by me, balloon inflated, to aa1 gravity drainage, urine specimen collected. returned raheel urine. Patient tolerated well. 21:40 Initial lab(s) drawn, by me, sent to lab. First set of blood cultures drawn by me. fc Inserted 18 gauge 10 cm midline to right upper basilic vein on first attempt. Has good blood return and flushes well. 21:50 Second set of blood cultures drawn by me. fc 22:30 Patient has correct armband on for positive identification. Bed in low position. Call fc light in reach. Side rails up X2. 22:59 Danielle Marley MD is Hospitalizing Provider. 08/14 00:02 No provider procedures requiring assistance completed. Patient admitted, IV remains in aa1 place. Administered Medications: 08/13 21:29 CANCELLED (Duplicate Order): Rocephin - (cefTRIAXone) 1 grams IVPB once over 30 mins; aa1 (mix in 50 mL NS) 21:52 Drug: Rocephin 1 grams Route: IV; Rate: calculated rate; Site: right upper arm; aa1 21:57 Follow up: IV Status: Completed infusion aa1 22:04 Drug: Lasix 60 mg Route: IVP; Site: right upper arm; aa1 23:05 Follow up: Response: No adverse reaction aa1 Outcome: 23:01 Decision to Hospitalize by Provider. 08/14 00:00 [facility], room [facility], with chart, Report fc called to Juliette KULKARNI Condition: good Discharge instructions given to patient, significant other, Instructed on discharge instructions, the need for admit. 00:35 Patient left the ED. aa1 Signatures: Dispatcher [employer] EDBeverly Man RN RN aa1 Chavez, Donita mr Susan, Omaira, RN RN Jeanne Kohler RN RN Felice Santa MD MD gs
--- NOTE | 2018-08-13 23:01 | EDPHYS ---
Physician Documentation [facility] Name: Amy Velasquez Age: 68 yrs Sex: Female : 1950 Arrival Date: 08/13/2018 Time: 18:49 Bed 13 Private MD: Lucho Catalan ED Physician Felice Rivera HPI: 08/13 22:55 This 68 yrs old Female presents to ER via Wheelchair with complaints of gs Breathing Difficulty, Urinary Problem. 22:55 The patient has shortness of breath at rest. Onset: The symptoms/episode began/occurred gs 2 day(s) ago, and became worse and became persistent. Duration: The symptoms are continuous. The patient's shortness of breath is aggravated by exertion, is alleviated by nothing. Associated signs and symptoms: Pertinent negatives: non-productive cough, productive cough, diaphoresis. Associated signs and symptoms: Pertinent negatives: fever. Severity of symptoms: At their worst the symptoms were severe in the emergency department the symptoms are unchanged. The patient has experienced similar episodes in the past, multiple times. The patient has not recently seen a physician. Historical: - Allergies: 19:03 Amitriptyline; hb 19:03 Cipro; hb 19:03 Morphine (rash, Itching); hb 19:03 Phenobarbital; hb - PMHx: 19:03 ADD/ADHD; Anxiety; Asthma; Atrial Fib; CANCER, SKIN; CHF; COPD; Degenerative disc hb disease; Hernia; Hypertension; - PSHx: 19:03 Hernia repair; Tubal ligation; Hysterectomy; hb - Immunization history:: Adult Immunizations up to date. - Social history:: Smoking status: Patient/guardian denies using tobacco. - Ebola Screening: : No symptoms or risks identified at this time. ROS: 22:55 : Positive for hematuria. gs 22:55 All other systems are negative. Exam: 22:55 Head/Face: Normocephalic, atraumatic. Eyes: Pupils equal round and reactive to light, gs extra-ocular motions intact. Lids and lashes normal. Conjunctiva and sclera are non-icteric and not injected. Cornea within normal limits. Periorbital areas with no swelling, redness, or edema. ENT: Nares patent. No nasal discharge, no septal abnormalities noted. Tympanic membranes are normal and external auditory canals are clear. Oropharynx with no redness, swelling, or masses, exudates, or evidence of obstruction, uvula midline. Mucous membranes moist. Neck: Trachea midline, no thyromegaly or masses palpated, and no cervical lymphadenopathy. Supple, full range of motion without nuchal rigidity, or vertebral point tenderness. No Meningismus. Chest/axilla: Normal chest wall appearance and motion. Nontender with no deformity. No lesions are appreciated. Cardiovascular: Regular rate and rhythm with a normal S1 and S2. No gallops, murmurs, or rubs. Normal PMI, no JVD. No pulse deficits. 22:55 Abdomen/GI: Soft, non-tender, with normal bowel sounds. No distension or tympany. No guarding or rebound. No evidence of tenderness throughout. Back: No spinal tenderness. No costovertebral tenderness. Full range of motion. 22:55 Skin: Warm, dry with normal turgor. Normal color with no rashes, no lesions, and no evidence of cellulitis. MS/ Extremity: Pulses equal, no cyanosis. Neurovascular intact. Full, normal range of motion. Neuro: Awake and alert, GCS 15, oriented to person, place, time, and situation. Cranial nerves II-XII grossly intact. Motor strength 5/5 in all extremities. Sensory grossly intact. Cerebellar exam normal. Normal gait. 22:55 Constitutional: The patient appears alert, awake. 22:55 Cardiovascular: Edema: 2+ edema to level of left midcalf and right midcalf. 22:55 Respiratory: moderate respiratory distress is noted, Respirations: tachypnea, Breath sounds: rales, are located in both bases. Vital Signs: 19:02 BP 142 / 75; Pulse 80; Resp 20; Temp 97.4; Pulse Ox 91% on R/A; Weight 169.64 kg; hb Height 5 ft. 4 in. (162.56 cm); Pain 7/10; 20:00 BP 155 / 82; Pulse 71; Resp 18; Pulse Ox 97% on 2 lpm NC; aa1 21:00 BP 146 / 73; Pulse 78; Resp 18; Pulse Ox 97% on 2 lpm NC; aa1 22:15 BP 128 / 59; Pulse 73; Resp 18; Pulse Ox 100% on 2 lpm NC; aa1 23:30 BP 146 / 77; Pulse 64; Resp 18; Temp 97.7; Pulse Ox 99% on 2 lpm NC; Pain 8/10; aa1 08/14 00:15 BP 156 / 80; Pulse 66; Resp 18; Temp 97.5; Pulse Ox 99% on 2 lpm NC; Pain 5/10; aa1 08/13 19:02 Body Mass Index 64.20 (169.64 kg, 162.56 cm) hb MDM: 08/13 19:14 Patient medically screened. 22:55 Differential diagnosis: CHF exacerbation, Chronic Obstructive Pulmonary Disease gs Myocardial Infarction pneumonia. Data reviewed: vital signs, nurses notes, old medical records, lab test result(s), EKG, radiologic studies. Data interpreted: Pulse oximetry: on is 90 %. Counseling: I had a detailed discussion with the patient and/or guardian regarding: the historical points, exam findings, and any diagnostic results supporting the discharge/admit diagnosis, lab results, radiology results, the need for outpatient follow up. 08/13 19:21 Order name: Basic Metabolic Panel; Complete Time: : 08/13 19:21 Order name: CBC with Diff; Complete Time: 20: 08/13 19:21 Order name: Magnesium; Complete Time: 21: 08/13 19:21 Order name: NT PRO-BNP; Complete Time: : 08/13 19:21 Order name: PT-INR; Complete Time: : 08/13 19:21 Order name: Troponin (emerg Dept Use Only); Complete Time: : 08/13 19:35 Order name: Urine Microscopic Only; Complete Time: : 08/13 20:47 Order name: Urine Dipstick--Ancillary (enter results); Complete Time: 21:22 ar5 08/13 21:03 Order name: Urine Culture [facility] 08/13 21:24 Order name: Lactate; Complete Time: 22:32 08/13 21:24 Order name: Blood Culture* 08/13 23:16 Order name: Comprehensive Metabolic Panel [facility] 08/13 23:16 Order name: Comprehensive Metabolic Panel [facility] 08/13 23:16 Order name: Magnesium [facility] 08/13 19:21 Order name: XRAY Chest (1 view); Complete Time: 20:28 08/13 19:21 Order name: EKG; Complete Time: 19:22 08/13 19:21 Order name: Cardiac monitoring; Complete Time: 19:49 08/13 19:21 Order name: EKG - Nurse/Tech; Complete Time: 20:28 08/13 19:21 Order name: IV Saline Lock; Complete Time: 23:05 08/13 19:21 Order name: Labs collected and sent; Complete Time: 20:28 08/13 19:21 Order name: O2 Per Protocol; Complete Time: 19:49 08/13 19:21 Order name: O2 Sat Monitoring; Complete Time: 19:49 08/13 19:35 Order name: Urine Dipstick-Ancillary (obtain specimen); Complete Time: 20:28 08/13 23:16 Order name: NPO EDMS 08/13 23:16 Order name: Magnesium EDMS 08/13 23:16 Order name: NT PRO-BNP EDPR 08/13 23:16 Order name: NT PRO-BNP EDMS Administered Medications: 21:29 CANCELLED (Duplicate Order): Rocephin - (cefTRIAXone) 1 grams IVPB once over 30 mins; aa1 (mix in 50 mL NS) 21:52 Drug: Rocephin 1 grams Route: IV; Rate: calculated rate; Site: right upper arm; aa1 21:57 Follow up: IV Status: Completed infusion aa1 22:04 Drug: Lasix 60 mg Route: IVP; Site: right upper arm; aa1 23:05 Follow up: Response: No adverse reaction aa1 Disposition: 22:55 Critical Care:. Disposition: 08/13/18 23:01 Hospitalization ordered by Danielle Marley for Inpatient Admission. Preliminary diagnosis are Heart failure, Hypoxemia, Cystitis. - Bed requested for Telemetry/MedSurg (Inpatient). - Status is Inpatient Admission. aa1 - Condition is Stable. - Problem is new. - Symptoms have improved. UTI on Admission? No Critical care time excluding procedures: 22:55 Critical care time: Bedside Care: 10 minutes, Consultation: 10 minutes, Family gs Intervention: 10 minutes. Total time: 30 minutes Signatures: Dispatcher [facility] EDPR Paulina Yanez RN RN Beverly Chanel RN RN aa1 Jeanne Zuniga RN RN Felice Rivera MD MD Corrections: (The following items were deleted from the chart) 21:29 21:24 Rocephin - (cefTRIAXone) 1 grams IVPB once over 30 mins; (mix in 50 mL NS) aa1 ordered. 23:33 23:01 Hospitalization Ordered by Danielle Marley MD for Inpatient Admission. Preliminary mw diagnosis is Heart failure; Hypoxemia; Cystitis. Bed requested for Telemetry/MedSurg (Inpatient). Status is Inpatient Admission. Condition is Stable. Problem is new. Symptoms have improved. UTI on Admission? No. 08/14 00:35 08/13 23:33 08/13/2018 23:01 Hospitalization Ordered by Danielle Marley MD for Inpatient aa1 Admission. Preliminary diagnosis is Heart failure; Hypoxemia; Cystitis. Bed requested for Telemetry/MedSurg (Inpatient). Status is Inpatient Admission. Condition is Stable. Problem is new. Symptoms have improved. UTI on Admission? No. mw
[2018-08-13] MEDS ORDERED: ONDANSETRON 4 MG/2 ML VIAL IV PRN (23:11)
[2018-08-13] MEDS ORDERED: ACETAMINOPHEN 500 MG TAB PO PRN (23:11)
[2018-08-13] MEDS ORDERED: NA CHLORIDE 0.9% 1,000 ML IV SCH (23:45)
[2018-08-14 00:58] VITALS: BMI 63.3
[2018-08-14] MEDS: FUROSEMIDE 40 MG/4 ML VIAL IV SCH ×3 (01:35→16:26)
[2018-08-14] MEDS ORDERED: clonazePAM 1 MG TAB PO PRN (01:43)
[2018-08-14] MEDS ORDERED: HYDROXYZINE HCL PO PRN (01:43)
[2018-08-14] MEDS: IPRATROPIUM BROM 0.5MG/2.5ML NEB SCH ×4 (01:50→20:00)
[2018-08-14] MEDS: ALBUTEROL 2.5 MG/3 ML NEB SOL NEB SCH ×4 (01:50→20:00)
[2018-08-14] MEDS ORDERED: TEMAZEPAM 15 MG CAP PO ONE (02:28)
[2018-08-14 05:15] LABS: Absolute Lymphocytes (CBC) 2.6 K/uL (0.7-4.9); Absolute Monocytes 1.1 K/uL (0.1-1.3); Basophils % 0.6 % (0-1.3); Eosinophils % 4.4 % (0-4.4); Hematocrit 36.8 % (36.0-45.0); Lymphocytes % 23.1 % (15.3-44.8); MPV 7.6 fL (7.6-11.3); Monocytes % 9.7 % (3.3-12.3); RBC Red Blood Cell Count 4.27 M/uL (3.86-4.86)
[2018-08-14 05:29] LABS: Albumin 3.1 g/dL (3.4-5.0); Bilirubin Total 0.2 mg/dL (0.2-1.0); Magnesium 1.8 mg/dL (1.8-2.4); Potassium 3.5 mmol/L (3.5-5.1)
[2018-08-14] MEDS ORDERED: Oxycodone HCl/Acetaminophen 1 TAB TAB PO SCH (06:00)
[2018-08-14] MEDS ORDERED: OXYCODONE HCL PO SCH (06:00)
[2018-08-14] MEDS ORDERED: OXYCODONE HCL 5 MG TAB PO SCH (06:00)
[2018-08-14] MEDS ORDERED: ACETAMINOPHEN PO SCH (06:00)
--- NOTE | 2018-08-14 08:08 | P.HP ---
Certification for Inpatient Patient admitted to: Observation With expected LOS: <2 Midnights Patient will require the following post-hospital care: None Practitioner: I am a practitioner with admitting privileges, knowledge of patient current condition, hospital course, and medical plan of care. Services: Services provided to patient in accordance with Admission requirements found in Title 42 Section 412.3 of the Code of Federal Regulations Patient History Date of Service: 08/13/18 Reason for admission: Shortness of breath History of Present Illness: Patient is a 68-year-old female who came into the hospital with difficulty breathing. Patient was found to have COPD and CHF exacerbation. Patient has a longstanding history of repeat admission for similar issues. Patient is morbidly obese with a BMI greater than 60. she has almost 70 years old. Her long-term prognosis is very poor. She is going to rehab on multiple occasions over the last year and a half. She had really developed increasing her strength. At her age and with her numerous comorbidities I am not sure that she qualifies to see a bariatric physician either. I anticipate she will have recurrent hospitalizations in the near future as a lot of her chronic issues are worsening. She was diuresed and given nebs as well as steroids in the emergency room. She will be admitted to the hospital for further evaluation. Allergies amitriptyline HCl [From Elavil] Allergy (Intermediate, Verified 06/06/18 22:46) Nausea/Vomiting ciprofloxacin [From Cipro] Allergy (Intermediate, Verified 06/06/18 22:46) Rash metronidazole Allergy (Verified 06/06/18 22:46) Itching morphine Allergy (Verified 06/06/18 22:46) Itching phenobarbital Allergy (Verified 06/06/18 22:46) Itching/Hives/Rash Home Medications: Albuterol Inhaler [Ventolin Inhaler*] 2 puff IH Q4H PRN 11/12/17 Aspirin 81 mg PO DAILY 11/12/17 Esomeprazole Mag Trihydrate [Nexium] 1 cap PO DAILY 11/12/17 Gabapentin [Neurontin*] 400 mg PO BID 11/12/17 Oxycodone HCl/Acetaminophen [Endocet 10-325 mg Tablet] 1 each PO Q4H 11/12/17 Sertraline [Zoloft*] 200 mg PO DAILY 11/12/17 clonazePAM [Klonopin*] 1 mg PO BID PRN #50 tab 12/23/17 Lisinopril 40 mg PO BID 01/17/18 Hydroxyzine HCl [Atarax] 20 mg PO BID PRN 06/06/18 Mupirocin Oint [Bactroban 2% Ointment*] 1 appl TOP BID #1 tube 06/11/18 Fluticasone/Salmeterol [Advair 250-50 Diskus] 2 puff IH BID 08/14/18 Furosemide [Lasix*] 40 mg PO DAILY 08/14/18 Metoprolol Tartrate [Lopressor*] 50 mg PO BID 08/14/18 - Past Medical/Surgical History Has patient received pneumonia vaccine in the past: Yes Diabetic: No -: HTN -: COPD -: CHF, diastolic dysfunction -: GERD -: Morbid obesity -: Anxiety -: DDD, DJD lumbar spine, chronic pain -: skin cancer -: History of Liver tumor -: Chronic back pain-Pain management-Dr. Herron -: Depression with anxiety -: Hernia, UTI: ESBL -: Left ovarian tumor removal -: Hysterectomy -: Hernia Repair -: Lymphoma Left leg removed -: Melanoma removed from back Psychosocial/ Personal History: , Disabled, 5 children - Family History Father Medical History: Heart disease, Hypertension, Diabetes, Cancer, Liver disease Mother Medical History: Heart disease, Hypertension, Diabetes, Cancer Sister Medical History: Heart disease, Hypertension, Diabetes Brother Medical History: Hypertension - Social History Smoking Status: Former smoker Alcohol use: No CD- Drugs: No Caffeine use: Yes Place of Residence: Home Review of Systems 10-point ROS is otherwise unremarkable Physical Examination - Vital Signs Temperature: 97.2 F Blood Pressure: 101/49 Pulse: 51 Respirations: 16 Pulse Ox (%): 97 - Physical Exam General: Alert, In no apparent distress, Oriented x3, Obese HEENT: Atraumatic, PERRLA, Mucous membr. moist/pink, EOMI, Sclerae nonicteric Neck: Supple, 2+ carotid pulse no bruit, Other (thick neck) Respiratory: Diminished, Crackles/rales, Expiratory wheezes Cardiovascular: Regular rate/rhythm, Normal S1 S2, Systolic murmur Gastrointestinal: Normal bowel sounds, Soft and benign, Non-distended, No tenderness Musculoskeletal: No clubbing, No swelling, No tenderness Integumentary: Skin lesion, Other ( Multiple skin lesions) Neurological: Normal speech, Normal tone, Sensation intact, Cranial nerves 3-12 intact, Normal affect, Abnormal gait, Abnormal strength Lymphatics: No axilla or inguinal lymphadenopathy - Studies Laboratory Data (last 24 hrs) 08/13/18 20:13: PT 12.0, INR 1.02 08/13/18 20:13: WBC 11.9 H, Hgb 12.3, Hct 38.8, Plt Count 236 08/13/18 20:13: Sodium 142, Potassium 4.0, BUN 14, Creatinine 0.74, Glucose 92, Magnesium 2.0 Assessment & Plan - Problems (Diagnosis) (1) Dyspnea Onset Date: 04/23/14 Current Visit: No Status: Acute Qualifiers: (2) Acute on chronic diastolic CHF (congestive heart failure) Onset Date: 07/26/17 Current Visit: No Status: Acute (3) COPD with acute exacerbation Onset Date: 01/20/18 Current Visit: No Status: Acute (4) Morbid obesity with BMI of 60.0-69.9, adult Current Visit: Yes Status: Acute (5) Renal insufficiency Current Visit: No Status: Acute (6) UTI (urinary tract infection) Onset Date: 10/06/15 Current Visit: No Status: Acute Qualifiers: (7) Atrial fibrillation Onset Date: 11/13/17 Current Visit: No Status: Chronic Qualifiers: (8) Chronic use of steroids Onset Date: 01/20/18 Current Visit: No Status: Chronic (9) Depression with anxiety Onset Date: 11/13/17 Current Visit: No Status: Chronic (10) Hypertension Onset Date: 03/27/16 Current Visit: No Status: Chronic Qualifiers: (11) Obstructive sleep apnea Onset Date: 11/13/17 Current Visit: No Status: Suspected - Plan Plan: 1. Continue with gentle diuresing 2. Continue with nebs, O2 per protocol, IV steroids 3. BiPAP at night 4. Will probably benefit from calorie restriction as that may be the only way she can get her BMI to go down. She will need aggressive dietary intervention long-term as her prognosis with a BMI of greater than 60 and she is approaching 70 years of age is very poor 5. continue to monitor labs and await urine culture 6. continue cardiac meds for rate control 7. history of ESBL E coli and will put on contact isolation pending cultures 8. GI and DVT prophylaxis Discharge Plan: Home Plan to discharge in: 24 Hours - Advance Directives Does patient have a Living Will: No Does patient have a Durable POA for Healthcare: No - Code Status/Comfort Care Code Status Assessed: Yes Code Status: Full Code Critical Care: No Time Spent Managing PTS Care (In Minutes): 45
[2018-08-14] MEDS: METOPROLOL TAR 50 MG TAB PO SCH ×2 (09:00→20:33)
[2018-08-14] MEDS ORDERED: CEFTRIAXONE 1 GM/NS 50 ML 1 GM/50 ML BAG IV SCH (09:00)
[2018-08-14] MEDS ORDERED: SALMETEROL IH SCH (09:00)
[2018-08-14] MEDS ORDERED: FLUTICASONE IH SCH (09:00)
[2018-08-14] MEDS ORDERED: CEFTRIAXONE/SWI 1gm 1 GM/10 ML SYR IV SCH (09:00)
[2018-08-14] MEDS ORDERED: FUROSEMIDE 40 MG/4 ML VIAL IV ONE (09:42)
[2018-08-14] MEDS: MUPIROCIN 2% OINT 22GM TUBE TOP SCH ×2 (10:02→20:32)
[2018-08-14] MEDS: SERTRALINE HCL 100 MG TAB PO SCH (10:03)
[2018-08-14] MEDS: LISINOPRIL 20 MG TAB PO SCH ×2 (10:03→20:33)
[2018-08-14] MEDS: ASPIRIN 81 MG CHEWABLE TABLET PO SCH (10:04)
[2018-08-14] MEDS: GABAPENTIN 400 MG CAP PO SCH ×2 (10:04→20:34)
[2018-08-14] MEDS: ENOXAPARIN 40 MG/0.4 ML SQ SCH (10:04)
[2018-08-14 10:59] LABS: Arterial Blood Carboxyhemoglob 1.3 % (0-1.5); Blood Gas Oxyhemoglobin 94.7 % (94-97); Blood O2 Saturation 96.6 % (92-98.5)
--- NOTE | 2018-08-14 11:07 | P.PN ---
Subjective Date of Service: 08/14/18 Chief Complaint: Shortness of breath Patient seen and examined at bedside with RN. Chart reviewed. Case discussed with patient at bedside along with case management charge nurse. This morning patient complains of having generalized weakness along with not feeling well. Denies having any nausea vomiting abdominal pain or any other associated symptoms Review of Systems 10-point ROS is otherwise unremarkable Physical Examination - Vital Signs Temperature: 97.2 F Blood Pressure: 101/49 Pulse: 51 Respirations: 16 Pulse Ox (%): 97 - Physical Exam General: Alert, Oriented x3, Mild distress, Obese Respiratory: Normal air movement, Expiratory wheezes, Inspiratory wheezes Cardiovascular: Regular rate/rhythm, Normal S1 S2 Gastrointestinal: Normal bowel sounds, No tenderness Musculoskeletal: No tenderness Integumentary: No rashes Neurological: Normal speech, Normal tone, Normal affect Lymphatics: No axilla or inguinal lymphadenopathy - Studies Laboratory Data (last 24 hrs) 08/13/18 20:13: PT 12.0, INR 1.02 08/13/18 20:13: WBC 11.9 H, Hgb 12.3, Hct 38.8, Plt Count 236 08/13/18 20:13: Sodium 142, Potassium 4.0, BUN 14, Creatinine 0.74, Glucose 92, Magnesium 2.0 Medications List Reviewed: Yes Assessment And Plan - Current Problems (Diagnosis) (1) Respiratory distress Current Visit: Yes Status: Acute Plan: Acute respiratory distress most likely secondary to COPD exacerbation secondary to hypercapnia -currently patient placed on BiPAP will wean as tolerated -does use home oxygenation at 2 L of cannula -pulmonology consulted. Awaiting recommendations at this time (2) Acute on chronic diastolic CHF (congestive heart failure) Onset Date: 07/26/17 Current Visit: No Status: Acute Plan: Acute on chronic diastolic heart failure due to noncompliance with fluid restriction and diet -fluid restriction, low sodium and daily weights -IV Lasix 40 mg b.i.d. for right now (3) COPD with acute exacerbation Onset Date: 01/20/18 Current Visit: No Status: Acute Plan: COPD exacerbation most likely secondary to noncompliance with medication -BiPAP, and duo nebs, steroids -will wean off of BiPAP as tolerated to oxygen 2 L nasal cannula which she uses at home -pulmonology consulted awaiting recommendations (4) UTI (urinary tract infection) Onset Date: 10/06/15 Current Visit: No Status: Acute Plan: UA with possibility of UTI -urine culture pending at this time -past history of ESBL -patient may be a chronic colonizer. Currently with no symptoms. -will monitor closely Qualifiers: Urinary tract infection type: acute cystitis Hematuria presence: without hematuria Qualified Code(s): N30.00 - Acute cystitis without hematuria (5) Chronic back pain Onset Date: 03/26/17 Current Visit: No Status: Chronic Plan: Currently takes oxycodone hydroxide seen and other pain medication at home. On hold right now due to current respiratory status Qualifiers: Back pain location: back pain in unspecified location Back pain laterality : midline Qualified Code(s): M54.9 - Dorsalgia, unspecified; G89.29 - Other chronic pain; G89.29 - Other chronic pain (6) Hypertension Onset Date: 03/27/16 Current Visit: No Status: Chronic Qualifiers: Hypertension type: essential hypertension (7) Obstructive sleep apnea Onset Date: 11/13/17 Current Visit: No Status: Chronic Plan: Structure sleep apnea currently patient does not use any CPAP noninvasive positive at home. Only use oxygen at night. (8) Morbid obesity with BMI of 60.0-69.9, adult Current Visit: Yes Status: Chronic Discharge Plan: Home Plan to discharge in: 48 Hours - Code Status/Comfort Care Code Status Assessed: Yes Critical Care: No
[2018-08-14] MEDS ORDERED: POTASSIUM CL SA 10 MEQ TAB PO ONE (13:21)
[2018-08-14] MEDS ORDERED: TRAMADOL HCL 50 MG TAB PO ONE (13:21)
[2018-08-14] MEDS ORDERED: MAGNESIUM SULFATE 1 gm IVPB 1 GM/100 ML BAG IV ONE (13:34)
[2018-08-14] MEDS ORDERED: IBUPROFEN 200 MG TAB PO ONE (13:42)
[2018-08-14] MEDS ORDERED: HYDROXYZINE HCL 10 MG/5 ML SYRUP UD PO PRN (15:11)
--- NOTE | 2018-08-14 16:33 | EKG ---
Test Date: 2018-08-13 Test Time: 20:13:55 Supervisor [place]: TASH MEASUREMENT RESULTS: Intervals: Rate: 69 CT: 170 QRSD: 82 QT: 420 QTc: 450 [place]: P: 92 CT: 170 QRS: 13 T: 59 INTERPRETIVE STATEMENTS: Normal sinus rhythm Normal ECG Compared to ECG 06/08/2018 23:10:04 Myocardial infarct finding no longer present Electronically Signed On 08-14-18 16:31:39 CDT by Krystian Charles
[2018-08-15] MEDS: ALBUTEROL 2.5 MG/3 ML NEB SOL NEB SCH ×3 (01:20→13:49)
[2018-08-15] MEDS: IPRATROPIUM BROM 0.5MG/2.5ML NEB SCH ×3 (01:20→13:49)
[2018-08-15 07:48] VITALS: O2SAT 99
[2018-08-15] MEDS: FUROSEMIDE 40 MG/4 ML VIAL IV SCH (08:09)
[2018-08-15] MEDS: ENOXAPARIN 40 MG/0.4 ML SQ SCH (08:09)
[2018-08-15] MEDS: ASPIRIN 81 MG CHEWABLE TABLET PO SCH (08:10)
[2018-08-15] MEDS: MUPIROCIN 2% OINT 22GM TUBE TOP SCH (08:10)
[2018-08-15] MEDS: GABAPENTIN 400 MG CAP PO SCH (08:10)
[2018-08-15] MEDS: SERTRALINE HCL 100 MG TAB PO SCH (08:10)
[2018-08-15] MEDS: LISINOPRIL 20 MG TAB PO SCH (08:10)
[2018-08-15] MEDS: METOPROLOL TAR 50 MG TAB PO SCH (08:10)
--- NOTE | 2018-08-15 10:25 | P.CNS ---
Date of Consult: 08/15/18 Reason for Consult: REsp failure Chief Complaint: Shortness of breath History of Present Illness: This 68 years of age admitted with shortness of breath denies any cough sputum hemoptysis fever chills chest pain apparently urinalysis was abnormal admitted to the hospital she has a history of presumed obstructive airways disease and is compliant with her bronchodilators normal echocardiogram last year denies any lower extremity edema complains of loud snoring excessive daytime somnolence symptoms very suggestive of sleep apnea in fact she never scheduled her sleep study high risk Allergies amitriptyline HCl [From Elavil] Allergy (Intermediate, Verified 06/06/18 22:46) Nausea/Vomiting ciprofloxacin [From Cipro] Allergy (Intermediate, Verified 06/06/18 22:46) Rash metronidazole Allergy (Verified 06/06/18 22:46) Itching morphine Allergy (Verified 06/06/18 22:46) Itching phenobarbital Allergy (Verified 06/06/18 22:46) Itching/Hives/Rash Home Medications: Albuterol Inhaler [Ventolin Inhaler*] 2 puff IH Q4H PRN 11/12/17 Aspirin 81 mg PO DAILY 11/12/17 Esomeprazole Mag Trihydrate [Nexium] 1 cap PO DAILY 11/12/17 Gabapentin [Neurontin*] 400 mg PO BID 11/12/17 Oxycodone HCl/Acetaminophen [Endocet 10-325 mg Tablet] 1 each PO Q4H 11/12/17 Sertraline [Zoloft*] 200 mg PO DAILY 11/12/17 Lisinopril 40 mg PO BID 01/17/18 Hydroxyzine HCl [Atarax] 20 mg PO BID PRN 06/06/18 Mupirocin Oint [Bactroban 2% Ointment*] 1 appl TOP BID #1 tube 06/11/18 Fluticasone/Salmeterol [Advair 250-50 Diskus] 2 puff IH BID 08/14/18 Furosemide [Lasix*] 40 mg PO DAILY 08/14/18 Metoprolol Tartrate [Lopressor*] 50 mg PO BID 08/14/18 Amox/Clavulanate [Augmentin 500-125 mg Tab*] 500 mg PO BID #14 tab 08/15/18 - Past Medical/Surgical History Diabetic: No -: HTN -: COPD -: CHF, diastolic dysfunction -: GERD -: Morbid obesity -: Anxiety -: DDD, DJD lumbar spine, chronic pain -: skin cancer -: History of Liver tumor -: Chronic back pain-Pain management-Dr. Herron -: Depression with anxiety -: Hernia, UTI: ESBL -: Left ovarian tumor removal -: Hysterectomy -: Hernia Repair -: Lymphoma Left leg removed -: Melanoma removed from back Psychosocial/ Personal History: , Disabled, 5 children - Family History Father Medical History: Heart disease, Hypertension, Diabetes, Cancer, Liver disease Mother Medical History: Heart disease, Hypertension, Diabetes, Cancer Sister Medical History: Heart disease, Hypertension, Diabetes Brother Medical History: Hypertension - Social History Smoking Status: Unknown if ever smoked Alcohol use: No CD- Drugs: No Caffeine use: Yes Place of Residence: Home Review of Systems 10-point ROS is otherwise unremarkable General: Weakness Respiratory: Shortness of Breath Physical Examination Temp Pulse Resp BP Pulse Ox 97.0 F 68 20 149/63 H 99 08/15/18 08:00 08/15/18 08:10 08/15/18 08:00 08/15/18 08:10 08/15/18 08:00 General: Alert, In no apparent distress, Oriented x3 Neck: Supple Respiratory: Clear to auscultation bilaterally Cardiovascular: No edema, Regular rate/rhythm, Abnormal S3 Gastrointestinal: Normal bowel sounds, Soft and benign Musculoskeletal: No clubbing, No swelling - Problems (1) Sleep apnea Current Visit: Yes Status: Acute Plan: Patient is 68 years of age morbidly obese admitted with worsening dyspnea and chest x-ray no change she is mildly hypercapnic mildly hypoxic labs unremarkable patient will need to be scheduled again for a sleep study (2) COPD (chronic obstructive pulmonary disease) Current Visit: Yes Status: Acute Plan: Is a mention of COPD although she has has not really smoked possibly obesity induced asthma patient will need PFTs as an outpatient Qualifiers: Emphysema type: unspecified
--- NOTE | 2018-08-15 10:35 | RAD REPORT ---
EXAM DESCRIPTION: RAD - Chest Single View - 08/15/2018 9:56 am CLINICAL HISTORY: Failure/volume overload, shortness of breath COMPARISON: August 13 TECHNIQUE: AP portable chest image was obtained 0955 hours . FINDINGS: No new mass or consolidation of the lung parenchyma. Chronic interstitial lung disease is still present. No vascular engorgement. Heart size remains upper normal. No measurable pleural effusi on and no pneumothorax. No acute bony abnormality seen. No acute aortic findings suspected. IMPRESSION: No new or progressive finding. No significant change from the August 13 examination.
--- NOTE | 2018-08-15 10:48 | P.DS ---
Admission Date: 08/14/18 Discharge Date: 08/15/18 Disposition: ROUTINE DISCHARGE Discharge Condition: FAIR Reason for Admission: Shortness of breath Consultations: Pulmonology - Problems (1) Respiratory distress Current Visit: Yes Status: Acute (2) Acute on chronic diastolic CHF (congestive heart failure) Onset Date: 07/26/17 Current Visit: No Status: Acute (3) COPD with acute exacerbation Onset Date: 01/20/18 Current Visit: No Status: Acute (4) UTI (urinary tract infection) Onset Date: 10/06/15 Current Visit: No Status: Acute Qualifiers: Urinary tract infection type: acute cystitis Hematuria presence: without hematuria Qualified Code(s): N30.00 - Acute cystitis without hematuria (5) Chronic back pain Onset Date: 03/26/17 Current Visit: No Status: Chronic Qualifiers: Back pain location: back pain in unspecified location Back pain laterality : midline Qualified Code(s): M54.9 - Dorsalgia, unspecified; G89.29 - Other chronic pain; G89.29 - Other chronic pain (6) Hypertension Onset Date: 03/27/16 Current Visit: No Status: Chronic Qualifiers: Hypertension type: essential hypertension (7) Obstructive sleep apnea Onset Date: 11/13/17 Current Visit: No Status: Chronic (8) Morbid obesity with BMI of 60.0-69.9, adult Current Visit: Yes Status: Chronic Brief History of Present Illness: Patient is a 68-year-old female who came into the hospital with difficulty breathing. Patient was found to have COPD and CHF exacerbation. Patient has a longstanding history of repeat admission for similar issues. Patient is morbidly obese with a BMI greater than 60. she has almost 70 years old. Her long-term prognosis is very poor. She is going to rehab on multiple occasions over the last year and a half. She had really developed increasing her strength. At her age and with her numerous comorbidities I am not sure that she qualifies to see a bariatric physician either. I anticipate she will have recurrent hospitalizations in the near future as a lot of her chronic issues are worsening. She was diuresed and given nebs as well as steroids in the emergency room. She will be admitted to the hospital for further evaluation. Hospital Course: Overall during the hospital stay patient remained stable. Patient was initially admitted to the hospital for acute respiratory failure most likely secondary to CHF versus COPD exacerbation secondary to hypercapnia. Patient was started on BiPAP along with Lasix IV. Patient had marked improvement in her symptoms and was successfully weaned off of BiPAP to oxygen that she uses at home. Patient was also on DuoNeb steroids and pulmonology was consulted. Pulmonology agreed with the plan above. Once patient had improvement in her symptoms she was also switched over to oral Lasix here in the hospital. Patient at that time was educated on the need to get sleep study done to get hers sleep apnea diagnosed in to get CPAP at home for nighttime. Patient demonstrated understanding and at that time was discharged home under stable condition. Patient also has a history of noncompliance with her pain medication along with medication for CHF. Patient was educated extensively regarding that as well. Patient does have high mortality and morbidity due to noncompliance with medication along with other comorbid conditions. Patient will benefit from having frequent visits to the primary care provider office along with having he CHF exacerbation. Plan along with COPD plan that she can use at home to make sure that she is staying on track with her weight along with breathing exercises. Patient also had a urine culture done here in the hospital which was positive for Klebsiella which was sensitive to Augmentin and thus she was prescribed that on discharge. Patient was discharged home under stable condition and was asked to follow up with primary care provider along with pulmonology in about 1-2 days post discharge Vital Signs/Physical Exam: Temp Pulse Resp BP Pulse Ox 97.0 F 68 20 149/63 H 99 08/15/18 08:00 08/15/18 08:10 08/15/18 08:00 08/15/18 08:10 08/15/18 08:00 General: Alert, In no apparent distress, Obese HEENT: Atraumatic, PERRLA, EOMI Neck: Supple, JVD not distended Respiratory: Normal air movement, Expiratory wheezes, Inspiratory wheezes Cardiovascular: Regular rate/rhythm, Normal S1 S2 Gastrointestinal: Normal bowel sounds, No tenderness Musculoskeletal: No tenderness Integumentary: No rashes Neurological: Normal speech, Normal tone, Normal affect Lymphatics: No axilla or inguinal lymphadenopathy Laboratory Data at Discharge: WBC 11.3 K/uL (4.3-10.9) H 08/14/18 04:45 Hgb 11.7 g/dL (12.0-15.0) L 08/14/18 04:45 Hct 36.8 % (36.0-45.0) 08/14/18 04:45 Plt Count 250 K/uL (152-406) 08/14/18 04:45 PT 12.0 SECONDS (9.5-12.5) 08/13/18 20:13 INR 1.02 08/13/18 20:13 Sodium 143 mmol/L (136-145) 08/14/18 04:45 Potassium 3.5 mmol/L (3.5-5.1) 08/14/18 04:45 BUN 15 mg/dL (7-18) 08/14/18 04:45 Creatinine 0.96 mg/dL (0.55-1.3) 08/14/18 04:45 Glucose 122 mg/dL (74-106) H 08/14/18 04:45 Magnesium 1.8 mg/dL (1.8-2.4) 08/14/18 04:45 Total Bilirubin 0.2 mg/dL (0.2-1.0) 08/14/18 04:45 AST 15 U/L (15-37) 08/14/18 04:45 ALT 19 U/L (12-78) 08/14/18 04:45 Alkaline Phosphatase 74 U/L (45-117) 08/14/18 04:45 Home Medications: Albuterol Inhaler [Ventolin Inhaler*] 2 puff IH Q4H PRN 11/12/17 Aspirin 81 mg PO DAILY 11/12/17 Esomeprazole Mag Trihydrate [Nexium] 1 cap PO DAILY 11/12/17 Gabapentin [Neurontin*] 400 mg PO BID 11/12/17 Oxycodone HCl/Acetaminophen [Endocet 10-325 mg Tablet] 1 each PO Q4H 11/12/17 Sertraline [Zoloft*] 200 mg PO DAILY 11/12/17 Lisinopril 40 mg PO BID 01/17/18 Hydroxyzine HCl [Atarax] 20 mg PO BID PRN 06/06/18 Mupirocin Oint [Bactroban 2% Ointment*] 1 appl TOP BID #1 tube 06/11/18 Fluticasone/Salmeterol [Advair 250-50 Diskus] 2 puff IH BID 08/14/18 Furosemide [Lasix*] 40 mg PO DAILY 08/14/18 Metoprolol Tartrate [Lopressor*] 50 mg PO BID 08/14/18 Amox/Clavulanate [Augmentin 500-125 mg Tab*] 500 mg PO BID #14 tab 08/15/18 New Medications: Amox/Clavulanate [Augmentin 500-125 mg Tab*] 500 mg PO BID #14 tab Patient Discharge Instructions: Please f.u with PCP And Cardiology in 1 to 2 week post discharge. New medication. Augmentin 500mg BID for 7 days for UTI. You will need to Get outpt Sleep Study done to get CPAP at home. Diet: Regular Activity: Ad leti Followup: Alex Barron MD [ACTIVE - CAN ADMIT] - 1 Week Pollo Pinto MD [ACTIVE - CAN ADMIT] - 1 Week
[2018-08-15 13:36] VITALS: BP 180/73; TEMP 97.7
[2018-08-15] MEDS ORDERED: AMOX/K CLAV 500 MG TAB PO SCH (21:00)
[2018-08-15] MEDS ORDERED: OXYCODONE *CR* 10 MG TAB PO SCH (21:00)
[2018-08-16] MEDS ORDERED: FUROSEMIDE 40 MG TABLET PO SCH (09:00)
== END 2018-08-15 14:50 | disposition home health service (06) | DRG 291 ==
LOC: ER 18:46 → ERHOLD 23:30 → 4TH 08-14 00:02 → OBSVTOIN 08-14 16:09
PROVIDERS: ADMIT Hospitalist; ATTEND Family Medicine
DX: I11.0 Hypertensive heart disease with heart failure (principal); J96.02 Acute respiratory failure with hypercapnia; J44.1 Chronic obstructive pulmonary disease with (acute) exacerbation; Z68.44 Body mass index [BMI] 60.0-69.9, adult; N30.00 Acute cystitis without hematuria; I50.33 Acute on chronic diastolic (congestive) heart failure; E66.01 Morbid (severe) obesity due to excess calories; Z91.14 Patient's other noncompliance with medication regimen; B96.1 Klebsiella pneumoniae [K. pneumoniae] as the cause of diseases classified elsewhere; N28.9 Disorder of kidney and ureter, unspecified; F41.8 Other specified anxiety disorders; G47.33 Obstructive sleep apnea (adult) (pediatric); K21.9 Gastro-esophageal reflux disease without esophagitis; G89.29 Other chronic pain; M54.9 Dorsalgia, unspecified; Z79.51 Long term (current) use of inhaled steroids; Z79.82 Long term (current) use of aspirin; Z87.891 Personal history of nicotine dependence
CPT/HCPCS: 36415; 51702; 71045; 80048; 80053; 81003; 81015; 82805; 82962; 83605; 83735; 83880; 84484; 85025; 85610; 87040; 87077; 87086; 87088; 87186; 93005; 94660; 94760; 96365; 96367; 96374; 96375; 97163; 99285; G0378; J0696; J1650; J1940; J3475; J7030

== ENCOUNTER 2018-09-25 21:06 | Emergency (ER) | payer OTHER ==
[2018-09-25] MEDS ORDERED: IPRATROPIUM BROM 0.5MG/2.5ML ONE (21:54)
[2018-09-25] MEDS ORDERED: ALBUTEROL 2.5 MG/3 ML NEB SOL ONE (21:54)
[2018-09-25 22:28] LABS: Absolute Lymphocytes (CBC) 3.1 K/uL (0.7-4.9); Basophils % 0.4 % (0-1.3); Eosinophils % 4.4 % (0-4.4); Hematocrit 38.4 % (36.0-45.0); Lymphocytes % 31.5 % (15.3-44.8); MPV 7.7 fL (7.6-11.3); Monocytes % 7.3 % (3.3-12.3); RBC Red Blood Cell Count 4.44 M/uL (3.86-4.86)
[2018-09-25 22:31] LABS: Protime INR 1.01
--- NOTE | 2018-09-25 22:32 | RAD REPORT ---
EXAM DESCRIPTION: Vikash Single View09/25/2018 9:58 pm CLINICAL HISTORY: Chest pain COMPARISON: July 2018 FINDINGS: The lungs appear clear of acute infiltrate. The heart is mildly enlarged IMPRESSION: No acute abnormalities displayed
[2018-09-25 22:47] LABS: ALT/SGPT 20 U/L (12-78); AST/SGOT 19 U/L (15-37); Albumin 3.4 g/dL (3.4-5.0); Alkaline Phosphatase 76 U/L (45-117); BUN Blood Urea Nitrogen 15 mg/dL (7-18); Bicarbonate 35 mmol/L (21-32); Bilirubin Direct < 0.1 mg/dL (0-0.2); Bilirubin Total 0.3 mg/dL (0.2-1.0); Glucose Level 100 mg/dL (74-106); NT PRO-BNP 699 pg/mL (<125); Potassium 3.6 mmol/L (3.5-5.1); Protein, Total 6.7 g/dL (6.4-8.2); Sodium Level 143 mmol/L (136-145); Troponin (Emerg Dept Use Only) < 0.02 ng/mL (0.0-0.045)
[2018-09-25] MEDS ORDERED: KETOROLAC 30 MG/ML INJ ONE (23:05)
[2018-09-25] MEDS ORDERED: ONDANSETRON 4 MG/2 ML VIAL ONE (23:05)
[2018-09-25 23:50] LABS: Urine Blood TRACE (NEG); Urine Glucose NEGATIVE (NEG); Urine Protein NEGATIVE (NEG); Urine Specific Gravity 1.015 (1.005-1.030); Urine pH 6.5 (5.0-7.0)
[2018-09-26 00:01] LABS: Urine Bacteria >50 /HPF (<20); Urine Culture Reflex Order REFLEXED; Urine RBC <5 /HPF (NONE SEEN)
[2018-09-26] MEDS ORDERED: CEFTRIAXONE/SWI 1gm 1 GM/10 ML SYR ONE (00:26)
[2018-09-26] MEDS ORDERED: FUROSEMIDE 40 MG/4 ML VIAL ONE (00:26)
[2018-09-26] MEDS ORDERED: ONDANSETRON 4 MG/2 ML VIAL ONE (00:26)
[2018-09-26] MEDS ORDERED: HYDROCODONE/APAP 10/325 TAB ONE (00:57)
--- NOTE | 2018-09-26 03:44 | EDPHYS ---
Physician Documentation [facility] Name: Amy Velasquez Age: 68 yrs Sex: Female : 1950 Arrival Date: 09/25/2018 Time: 21:11 Bed 18 Private MD: ED Physician Felice Rivera HPI: 09/25 21:45 This 68 yrs old Female presents to ER via Wheelchair with complaints of cp Breathing Difficulty. 21:45 The patient has shortness of breath at rest. cp 21:45 Onset: The symptoms/episode began/occurred today. cp 21:45 Duration: The symptoms are continuous, and are steadily getting worse. cp 21:45 Associated signs and symptoms: Pertinent positives: chest pain, right lower leg pain, cp Pertinent negatives: productive cough, diaphoresis, dizziness, fever, hemoptysis. 21:45 Severity of symptoms: in the emergency department the symptoms are unchanged despite cp home interventions. The patient has experienced similar episodes in the past. Historical: - Allergies: 21:28 Phenobarbital; ak1 21:28 Morphine (rash, Itching); ak1 21:28 Cipro; ak1 21:28 Amitriptyline; ak1 - Home Meds: 21:28 Advair Diskus 250-50 mcg/dose Inhl dsdv 1 puff 2 times per day for Prevention of ak1 Bronchospasm with Chronic Bronchitis [Active]; amlodipine 5 mg tab 1 tab once daily [Active]; aspirin 81 mg Oral chew 1 tab once daily [Active]; Cheratussin AC 10-100 mg/5 mL Oral liqd 10 mL PRN [Active]; clonazepam 1 mg Oral tab 1 tab once daily [Active]; furosemide 20 mg Oral tab 1 tab once daily [Active]; gabapentin 400 mg Oral cap 1 cap 3 times per day [Active]; lisinopril 40 mg Oral tab 1 tab twice a day [Active]; metoprolol tartrate 50 mg Oral tab 1 tab once daily [Active]; Nexium 40 mg Oral cpDR 1 cap once daily [Active]; Albuterol Inhl [Active]; nystatin 100,000 unit/gram Topical crea 3 times per day [Active]; prednisone 20 mg Oral tab 1 tab 2 times per day [Active]; sertraline 50 mg Oral tab 3 tabs once daily [Active]; oxycodone-acetaminophen 10-325 mg Oral tab 1 tab every 6 hours for Pain [Active]; Ventolin Rotahaler/Rotacaps Inhl four times a day [Active]; - PMHx: 21:28 ADD/ADHD; Anxiety; Asthma; Atrial Fib; CANCER, SKIN; CHF; COPD; Degenerative disc ak1 disease; Hernia; Hypertension; - PSHx: 21:28 Hysterectomy; Tubal ligation; Hernia repair; ak1 - Immunization history:: Adult Immunizations unknown. - Social history:: Smoking status: Patient/guardian denies using tobacco. - Ebola Screening: : No symptoms or risks identified at this time. ROS: 21:55 Constitutional: Negative for body aches, chills, fever, poor PO intake. cp 21:55 Cardiovascular: Positive for chest pain, edema, Negative for palpitations. cp 21:55 Respiratory: Positive for shortness of breath, at rest. Negative for cough, wheezing. 21:55 Abdomen/GI: Negative for abdominal pain, nausea, vomiting, and diarrhea. 21:55 MS/extremity: Positive for pain, of the right leg, Negative for injury or acute deformity. 21:55 Skin: Negative for rash. 21:55 Neuro: Negative for altered mental status, headache, syncope, weakness. 21:55 All other systems are negative. Exam: 21:30 ECG was reviewed by the Attending Physician. cp 22:05 Constitutional: The patient appears in no acute distress, alert, awake, cp non-diaphoretic, non-toxic, well developed, well nourished, morbidly obese 22:05 Head/Face: Normocephalic, atraumatic. Eyes: Pupils equal round and reactive to light, cp extra-ocular motions intact. Lids and lashes normal. Conjunctiva and sclera are non-icteric and not injected. Cornea within normal limits. Periorbital areas with no swelling, redness, or edema. ENT: Nares patent. No nasal discharge, no septal abnormalities noted. Tympanic membranes are normal and external auditory canals are clear. Oropharynx with no redness, swelling, or masses, exudates, or evidence of obstruction, uvula midline. Mucous membranes moist. Chest/axilla: Normal chest wall appearance and motion. Nontender with no deformity. No lesions are appreciated. 22:05 Cardiovascular: Rate: normal, Rhythm: regular, JVD: is not appreciated. 22:05 Respiratory: the patient does not display signs of respiratory distress, Respirations: labored breathing, that is mild, Breath sounds: decreased breath sounds, that are mild, throughout, stridor, is not appreciated, wheezing: is not appreciated. 22:05 Abdomen/GI: Inspection: obese Bowel sounds: active, all quadrants, Palpation: abdomen is soft and non-tender, in all quadrants. 22:05 Skin: rash can be described as erythematous, papular, on the right lower leg. 22:05 Neuro: Orientation: to person, place \T\ time. Mentation: is normal, Motor: moves all fours, strength is normal. 09/26 03:10 ECG was reviewed by the Attending Physician. cp Vital Signs: 09/25 21:23 BP 144 / 89; Pulse 94; Resp 24; Temp 98.1; Pulse Ox 91% on R/A; Weight 169.64 kg (R); ak1 Height 5 ft. 4 in. (162.56 cm) (R); Pain 8/10; 21:23 Pulse Ox 96% on 4 lpm NC; ak1 22:33 BP 138 / 73; Pulse 103; Resp 16 S; Pulse Ox 99% on 2 lpm NC; ca1 23:31 BP 141 / 60; Pulse 102; Resp 14 S; Temp 98.9(O); Pulse Ox 97% on 2 lpm NC; ca1 09/26 00:30 BP 145 / 59; Pulse 100; Resp 15 S; Temp 98.2(O); Pulse Ox 100% on R/A; ca1 01:30 BP 115 / 66; Pulse 96; Resp 17 S; Pulse Ox 93% on R/A; cc3 02:00 BP 117 / 72; Pulse 100; Resp 19; Pulse Ox 92% on R/A; lp1 03:00 BP 99 / 58; Pulse 96; Resp 12 S; Pulse Ox 93% on R/A; cc3 03:50 BP 104 / 47; Pulse 96; Resp 15 S; Temp 98.4(O); Pulse Ox 94% on R/A; cc3 09/25 21:23 Body Mass Index 64.20 (169.64 kg, 162.56 cm) ak1 09/25 21:23 pt uses 2.5L via NC at home ak1 MDM: 21:17 Patient medically screened. cp 22:00 Differential diagnosis: CHF exacerbation, Chronic Obstructive Pulmonary Disease cp pneumonia, Pneumothorax Sepsis Unstable Angina. 09/26 03:00 Antibiotic administration: The patient is discharged and will get outpatient cp antibiotics. 03:42 Data reviewed: vital signs, nurses notes, lab test result(s), EKG, radiologic studies, cp plain films, ultrasound. 03:42 Test interpretation: by ED physician or midlevel provider: ECG, plain radiologic cp studies. 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 ED course: VSS. Symptoms improved with treatment. Will discharge to home for continued monitoring. 09/25 21:31 Order name: Basic Metabolic Panel; Complete Time: 23:59 cp 09/25 23:59 Interpretation: Normal except: CO2 35; GFR 66. cp 09/25 21:31 Order name: CBC with Diff; Complete Time: 23:59 cp 09/26 00:00 Interpretation: Normal except: MCHC 31.4. cp 09/25 21:31 Order name: LFT's; Complete Time: 23:59 cp 09/25 21:31 Order name: Magnesium; Complete Time: 23:59 cp 09/25 21:31 Order name: NT PRO-BNP; Complete Time: 23:59 cp 09/26 01:58 Interpretation: Abnormal: NT PRO-BNP 699. cp 09/25 21:31 Order name: PT-INR; Complete Time: 23:59 cp 09/25 21:31 Order name: Troponin (emerg Dept Use Only); Complete Time: 23:59 cp 09/25 21:31 Order name: XRAY Chest (1 view); Complete Time: 23:59 cp 09/25 22:28 Order name: Urine Microscopic Only; Complete Time: 00:03 cp 09/26 00:03 Interpretation: Normal except: UWBC >50; UBACT >50. cp 09/25 23:32 Order name: Urine Dipstick--Ancillary (enter results); Complete Time: 23:59 ar5 09/26 00:00 Interpretation: Normal except: UBLD TRACE; U NIT POSITIVE; UESTR 2+. cp 09/26 00:05 Order name: Urine Culture EDMS 09/26 00:11 Order name: US Extremity Venous Unilateral Ltd; Complete Time: 10:30 cp 09/25 21:31 Order name: EKG; Complete Time: 21:32 cp 09/25 21:31 Order name: Cardiac monitoring; Complete Time: 21:37 cp 09/25 21:31 Order name: EKG - Nurse/Tech; Complete Time: 21:37 cp 09/25 21:31 Order name: IV Saline Lock; Complete Time: 22:53 cp 09/25 21:31 Order name: Labs collected and sent; Complete Time: 22:31 cp 09/25 21:31 Order name: O2 Per Protocol; Complete Time: 21:37 cp 09/25 21:31 Order name: O2 Sat Monitoring; Complete Time: 21:37 cp 09/25 22:28 Order name: Urine Dipstick-Ancillary (obtain specimen); Complete Time: 23:30 cp EC/04 21:30 Rate is 92 beats/min. Rhythm is regular. TX interval is normal. QRS interval is normal. cp QT interval is normal. T waves are Flattened in lead aVL. Interpreted by me. Reviewed by me. 09/26 03:10 Rate is 99 beats/min. Rhythm is regular. TX interval is normal. QRS interval is normal. cp QT interval is normal. Interpreted by me. Reviewed by me. Administered Medications: 09/25 21:35 Drug: Albuterol - atroVENT (3:1) (2.5 mg - 0.5 mg) 3 ml Route: Nebulizer; ca1 23:30 Follow up: Response: No adverse reaction; Marked relief of symptoms ca1 22:40 Drug: Zofran 4 mg Route: IVP; Site: right upper arm; ca1 23:30 Follow up: Response: No adverse reaction; Nausea is decreased ca1 22:45 Drug: TORadol 30 mg Route: IVP; Site: right upper arm; ca1 23:31 Follow up: Response: No adverse reaction; Pain is decreased ca1 09/26 00:11 Drug: Zofran 4 mg Route: IVP; Site: right upper arm; ca1 00:52 Follow up: Response: No adverse reaction; Nausea is decreased ca1 00:15 Drug: Rocephin 1 grams Route: IV; Rate: bolus; Site: right upper arm; ca1 00:26 Drug: Lasix 40 mg Route: IVP; Site: right upper arm; ca1 00:40 Drug: [place] 10 mg-325 mg 1 tabs Route: PO; ca1 01:10 Follow up: Response: No adverse reaction; Pain is decreased cc3 Disposition: 03:45 Chart complete. cp Disposition: 09/26/18 03:43 Discharged to Home. Impression: Urinary tract infection, site not specified, Unspecified combined systolic (congestive) and diastolic (congestive) heart failure, Pain in right leg, Shortness of breath. - Condition is Stable. - Discharge Instructions: Shortness of Breath, Urinary Tract Infection, Adult. - Prescriptions for Zofran 4 mg Oral Tablet - take 1 tablet by ORAL route every 12 hours As needed; 20 tablet. Albuterol Sulfate 2.5 mg /3 mL (0.083 %) Inhalation Solution for Nebulization - inhale 1 unit by NEBULIZATION route every 8 hours As needed; 1 box. Suprax 400 mg Oral tablet - take 1 tablet by ORAL route once daily for 10 days; 10 tablet. - Medication Reconciliation Form, Thank You Letter, Antibiotic Education, Prescription Opioid Use form. - Follow up: Private Physician; When: 2 - 3 days; Reason: Recheck today's complaints. - Problem is an acute exacerbation. - Symptoms have improved. Addendum: 09/29/2018 18:16 Co-signature as Attending Physician, Felice Rivera MD. g s Signatures: Dispatcher [employer] EDLA Danay Sun RN RN ak1 You Jorge PA PA cp Blayne Crocker, FIELD CARE COORDINATOR FIELD CARE COORDINATOR pm1 Felice Rivera MD MD gs Cordel, Charlene cc3 Peggy Sanchez RN RN ca1 Corrections: (The following items were deleted from the chart) 09/26 04:03 03:43 09/26/2018 03:43 Discharged to Home. Impression: Urinary tract infection, site cc3 not specified; Unspecified combined systolic (congestive) and diastolic (congestive) heart failure; Pain in right leg; Shortness of breath. Condition is Stable. Forms are Medication Reconciliation Form, Thank You Letter, Antibiotic Education, Prescription Opioid Use. Follow up: Private Physician; When: 2 - 3 days; Reason: Recheck today's complaints. Problem is an acute exacerbation. Symptoms have improved. 09/27 02:09/26 03:00 Data reviewed: vital signs, nurses notes, lab test result(s), EKG, cp radiologic studies, plain films, 09/27 02:09/26 03:00 Test interpretation: by ED physician or midlevel provider: ECG, plain cp radiologic studies, 09/27 02:09/26 03:00 Counseling: I had a detailed discussion with the patient and/or guardian cp regarding: the historical points, exam findings, and any diagnostic results supporting the discharge/admit diagnosis, lab results, radiology results, to return to the emergency department if symptoms worsen or persist or if there are any questions or concerns that arise at home, 09/27 02:09/26 03:00 Response to treatment: the patient's symptoms have markedly improved after cp treatment, 09/27 02:09/26 03:00 ED course: VSS. Symptoms improved with treatment. Will discharge to home cp for continued monitoring. 09/27 03:09/25 21:45 Associated signs and symptoms: Pertinent positives: chest pain, Pertinent cp negatives: productive cough, fever, hemoptysis, cp
--- NOTE | 2018-09-26 03:44 | ER ---
Nurse's Notes [facility] Name: Amy Velasquez Age: 68 yrs Sex: Female : 1950 Arrival Date: 09/25/2018 Time: 21:11 Bed 18 Private MD: Diagnosis: Urinary tract infection, site not specified;Unspecified combined systolic (congestive) and diastolic (congestive) heart failure;Pain in right leg;Shortness of breath Presentation: 09/25 21:24 Presenting complaint: Patient states: chest pain this morning. 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 pt c/o SOB but did not come with portable oxygen tank where she uses 2.5L NC at home. Transition of care: patient was not received from another setting of care. Onset of symptoms was September 25, 2018. Risk Assessment: Do you want to hurt yourself or someone else? Patient reports no desire to harm self or others. Care prior to arrival: None. 21:24 Acuity: BHARTI 3 ak1 21:24 Method Of Arrival: Wheelchair ak1 21:29 Initial Sepsis Screen: Does the patient meet any 2 criteria? No. Patient's initial ak1 sepsis screen is negative. Does the patient have a suspected source of infection? No. Patient's initial sepsis screen is negative. Triage Assessment: 21:28 General: Appears uncomfortable, obese, Behavior is cooperative, anxious. ak1 21:29 Respiratory: Reports shortness of breath at rest on exertion Onset: The ak1 symptoms/episode began/occurred at an unknown time. the patient has mild shortness of breath. Historical: - Allergies: 21:28 Phenobarbital; ak1 21:28 Morphine (rash, Itching); ak1 21:28 Cipro; ak1 21:28 Amitriptyline; ak1 - Home Meds: 21:28 Advair Diskus 250-50 mcg/dose Inhl dsdv 1 puff 2 times per day for Prevention of ak1 Bronchospasm with Chronic Bronchitis [Active]; amlodipine 5 mg tab 1 tab once daily [Active]; aspirin 81 mg Oral chew 1 tab once daily [Active]; Cheratussin AC 10-100 mg/5 mL Oral liqd 10 mL PRN [Active]; clonazepam 1 mg Oral tab 1 tab once daily [Active]; furosemide 20 mg Oral tab 1 tab once daily [Active]; gabapentin 400 mg Oral cap 1 cap 3 times per day [Active]; lisinopril 40 mg Oral tab 1 tab twice a day [Active]; metoprolol tartrate 50 mg Oral tab 1 tab once daily [Active]; Nexium 40 mg Oral cpDR 1 cap once daily [Active]; Albuterol Inhl [Active]; nystatin 100,000 unit/gram Topical crea 3 times per day [Active]; prednisone 20 mg Oral tab 1 tab 2 times per day [Active]; sertraline 50 mg Oral tab 3 tabs once daily [Active]; oxycodone-acetaminophen 10-325 mg Oral tab 1 tab every 6 hours for Pain [Active]; Ventolin Rotahaler/Rotacaps Inhl four times a day [Active]; - PMHx: 21:28 ADD/ADHD; Anxiety; Asthma; Atrial Fib; CANCER, SKIN; CHF; COPD; Degenerative disc ak1 disease; Hernia; Hypertension; - PSHx: 21:28 Hysterectomy; Tubal ligation; Hernia repair; ak1 - Immunization history:: Adult Immunizations unknown. - Social history:: Smoking status: Patient/guardian denies using tobacco. - Ebola Screening: : No symptoms or risks identified at this time. Screenin:29 Abuse screen: Denies threats or abuse. Denies injuries from another. Nutritional ak1 screening: No deficits noted. Tuberculosis screening: No symptoms or risk factors identified. Fall Risk Gait- Weak (10 pts.). Assessment: 21:30 General: Appears in no apparent distress. uncomfortable, obese, Behavior is ca1 cooperative, appropriate for age. Pain: Complains of pain in chest Pain does not radiate. Pain currently is 8 out of 10 on a pain scale. Pain began 1 day ago. Is intermittent. Neuro: Level of Consciousness is awake, alert, obeys commands, Oriented to person, place, time, situation. Cardiovascular: Heart tones S1 S2 present Capillary refill < 3 seconds Patient's skin is warm and dry. Rhythm is sinus rhythm. Respiratory: Reports shortness of breath at rest Airway is patent Respiratory effort is even, labored, Respiratory pattern is regular, symmetrical, Breath sounds are clear bilaterally. GI: Abdomen is round non-distended, Bowel sounds present X 4 quads. Abd is soft and non tender X 4 quads. : No deficits noted. No signs and/or symptoms were reported regarding the genitourinary system. EENT: No deficits noted. No signs and/or symptoms were reported regarding the EENT system. Derm: Skin is fragile, is thin, Skin is pink, warm \T\ dry. Musculoskeletal: Circulation, motion, and sensation intact. Capillary refill < 3 seconds, Range of motion: intact in all extremities. 21:52 Reassessment: Patient appears in no apparent distress at this time. Patient and/or ca1 family updated on plan of care and expected duration. Pain level reassessed. Patient is alert, oriented x 3, equal unlabored respirations, skin warm/dry/pink. 22:33 Reassessment: Patient appears in no apparent distress at this time. Patient is alert, ca1 oriented x 3, equal unlabored respirations, skin warm/dry/pink. 23:31 Reassessment: Patient appears in no apparent distress at this time. Patient and/or ca1 family updated on plan of care and expected duration. Pain level reassessed. Patient is alert, oriented x 3, equal unlabored respirations, skin warm/dry/pink. 07/05 00:09 Reassessment: Patient appears in no apparent distress at this time. Pt c/o nausea. ca1 Notified provider. 00:44 Reassessment: Patient appears in no apparent distress at this time. Patient and/or ca1 family updated on plan of care and expected duration. Pain level reassessed. Patient is alert, oriented x 3, equal unlabored respirations, skin warm/dry/pink. Pt c/o pain at back and legs. Asked for pain meds. Notified provider. 01:10 Reassessment: Patient appears in no apparent distress at this time. Patient and/or cc3 family updated on plan of care and expected duration. Pain level reassessed. Patient is alert, oriented x 3, equal unlabored respirations, skin warm/dry/pink. Patient denies pain at this time. 02:40 Reassessment: Patient appears in no apparent distress at this time. Patient and/or cc3 family updated on plan of care and expected duration. Pain level reassessed. Patient is alert, oriented x 3, equal unlabored respirations, skin warm/dry/pink. Patient complains of left side chest heaviness, ECG done and shown to Dr. Rivera, no new orders made. 03:20 Reassessment: Patient appears in no apparent distress at this time. Patient and/or cc3 family updated on plan of care and expected duration. Pain level reassessed. Patient is alert, oriented x 3, equal unlabored respirations, skin warm/dry/pink. Patient taken to ultrasound department by the electroencephalographic technician by stretcher. Patient denies pain at this time. Patient states symptoms have improved. 03:40 Reassessment: Patient appears in no apparent distress at this time. Patient and/or cc3 family updated on plan of care and expected duration. Pain level reassessed. Patient is alert, oriented x 3, equal unlabored respirations, skin warm/dry/pink. Patient came back from ultrasound department, awaiting result. 04:00 Reassessment: Patient appears in no apparent distress at this time. Patient and/or cc3 family updated on plan of care and expected duration. Pain level reassessed. Patient is alert, oriented x 3, equal unlabored respirations, skin warm/dry/pink. PA Page discharged the patient home with prescriptions given. IV cannula removed and patient left ER vitally stable by wheelchair escorted by SHAD Chan and the patient's family. Patient denies pain at this time. Patient states feeling better. Vital Signs: 09/25 21:23 BP 144 / 89; Pulse 94; Resp 24; Temp 98.1; Pulse Ox 91% on R/A; Weight 169.64 kg (R); ak1 Height 5 ft. 4 in. (162.56 cm) (R); Pain 8/10; 21:23 Pulse Ox 96% on 4 lpm NC; ak1 22:33 BP 138 / 73; Pulse 103; Resp 16 S; Pulse Ox 99% on 2 lpm NC; ca1 23:31 BP 141 / 60; Pulse 102; Resp 14 S; Temp 98.9(O); Pulse Ox 97% on 2 lpm NC; ca1 07/05 00:30 BP 145 / 59; Pulse 100; Resp 15 S; Temp 98.2(O); Pulse Ox 100% on R/A; ca1 01:30 BP 115 / 66; Pulse 96; Resp 17 S; Pulse Ox 93% on R/A; cc3 02:00 BP 117 / 72; Pulse 100; Resp 19; Pulse Ox 92% on R/A; lp1 03:00 BP 99 / 58; Pulse 96; Resp 12 S; Pulse Ox 93% on R/A; cc3 03:50 BP 104 / 47; Pulse 96; Resp 15 S; Temp 98.4(O); Pulse Ox 94% on R/A; cc3 09/25 21:23 Body Mass Index 64.20 (169.64 kg, 162.56 cm) ak1 09/25 21:23 pt uses 2.5L via NC at home ak1 ED Course: 21:11 Patient arrived in ED. es 21:17 You Jorge PA is PHCP. cp 21:17 Felice Rivera MD is Attending Physician. cp 21:23 Arm band placed on Patient placed in an exam room, on a stretcher, on manager cardiac cath, ak1 on pulse oximetry, Patient notified of wait time. 21:25 Triage completed. ak1 21:29 Patient has correct armband on for positive identification. Bed in low position. Call ak1 light in reach. Side rails up X2. Adult w/ patient. quality assurance monitor chassis on. Pulse ox on. NIBP on. 21:30 Warm blanket given. Pillow given. ca1 21:37 Peggy Sanchez, RN is Primary Nurse. ca1 21:56 XRAY Chest (1 view) In Process Unspecified. EDMS 22:07 Missed attempt(s): 22 gauge in left antecubital area. lt1 22:40 No provider procedures requiring assistance completed. Inserted saline lock: 24 gauge ca1 in right upper arm, using aseptic technique. 23:31 Straight cath inserted, using sterile technique, 16 Fr. Specimen obtained. Returned ca1 cloudy urine. Patient tolerated well. 09/26 01:08 Report given to Regi Carmichael RN. cc3 03:38 US Extremity Venous Unilateral Ltd In Process Unspecified. EDMS 04:00 IV discontinued, intact, bleeding controlled, No redness/swelling at site. Pressure cc3 dressing applied. Administered Medications: 09/25 21:35 Drug: Albuterol - atroVENT (3:1) (2.5 mg - 0.5 mg) 3 ml Route: Nebulizer; ca1 23:30 Follow up: Response: No adverse reaction; Marked relief of symptoms ca1 22:40 Drug: Zofran 4 mg Route: IVP; Site: right upper arm; ca1 23:30 Follow up: Response: No adverse reaction; Nausea is decreased ca1 22:45 Drug: TORadol 30 mg Route: IVP; Site: right upper arm; ca1 23:31 Follow up: Response: No adverse reaction; Pain is decreased ca1 09/26 00:11 Drug: Zofran 4 mg Route: IVP; Site: right upper arm; ca1 00:52 Follow up: Response: No adverse reaction; Nausea is decreased ca1 00:15 Drug: Rocephin 1 grams Route: IV; Rate: bolus; Site: right upper arm; ca1 00:26 Drug: Lasix 40 mg Route: IVP; Site: right upper arm; ca1 00:40 Drug: Ideal 10 mg-325 mg 1 tabs Route: PO; ca1 01:10 Follow up: Response: No adverse reaction; Pain is decreased cc3 Outcome: 03:43 Discharge ordered by MD. cp 04:00 Discharged to home via wheelchair, with family. cc3 04:00 Condition: stable 04:00 Discharge instructions given to patient, Instructed on discharge instructions, follow up and referral plans. medication usage, Demonstrated understanding of instructions, follow-up care, medications, Prescriptions given X 3. 04:03 Patient left the ED. cc3 Addendum: 10/01/2018 13:37 Addendum: Culture Results: Positive urine culture. Bacteria is resistant to, has s s intermediate sensitivity, or is not tested against prescribed antibiotics. Report given to NICKI for further evaluation and then to machine heel seat laster for follow up with patient. Phone call Attempt #1 Augmentin 875 mg PO BID x7 days # 14 called in to pharmacy of choice, [facility] in [place]. Signatures: Dispatcher [employer] EDUT Sandra Choe Shelby, RN RN ss Rocio Engel RN RN lp1 Danay Sun RN RN ak1 You Jorge PA PA Regi Velasco cc3 Peggy Sanchez RN RN ca1 Ofelia Kramer lt1 Corrections: (The following items were deleted from the chart) 09/25 21:55 21:52 General: Appears in no apparent distress. uncomfortable, obese, Behavior is ca1 cooperative, appropriate for age, ca1 21:55 21:52 General: Appears in no apparent distress. uncomfortable, obese, Behavior is ca1 cooperative, appropriate for age, ca1 21:56 21:52 Pain: Complains of pain in chest Pain does not radiate. Pain currently is 8 out ca1 of 10 on a pain scale. Pain began 1 day ago. Is intermittent, ca1 : 21:52 Neuro: Level of Consciousness is awake, alert, obeys commands, Oriented to ca1 person, place, time, situation, ca1 : 21:52 Cardiovascular: Heart tones S1 S2 present Capillary refill < 3 seconds Patient's ca1 skin is warm and dry. Rhythm is sinus rhythm ca1 : 21:52 Respiratory: Reports shortness of breath at rest Airway is patent Respiratory ca1 effort is even, labored, Respiratory pattern is regular, symmetrical, Breath sounds are clear bilaterally. ca1 21: 21:52 GI: Abdomen is round non-distended, Bowel sounds present X 4 quads. Abd is soft ca1 and non tender X 4 quads. ca1 : 21:52 : No deficits noted. No signs and/or symptoms were reported regarding the ca1 genitourinary system. ca1 : 21:52 EENT: No deficits noted. No signs and/or symptoms were reported regarding the ca1 EENT system. ca1 : 21:52 Derm: Skin is fragile, is thin, Skin is pink, warm \T\ dry. ca1 ca1 21: 21:52 Musculoskeletal: Circulation, motion, and sensation intact. Capillary refill < 3 ca1 seconds, Range of motion: intact in all extremities, ca1 21:56 21:40 General: Appears in no apparent distress. uncomfortable, obese, Behavior is ca1 cooperative, appropriate for age, ca1 23:32 22:33 BP 138 / 73; Pulse 103bpm; Resp 16bpm; Pulse Ox 99% 2 lpm Nasal Cannula; ca1 ca1
[2018-09-26 04:22] VITALS: TEMP 98.2
[2018-09-26 04:24] VITALS: BP 99/58; O2SAT 93
--- NOTE | 2018-09-26 08:00 | RAD REPORT ---
EXAM DESCRIPTION: [facility] Ven[facility] Uni Ltd09/26/2018 3:38 am CLINICAL HISTORY: Right leg pain COMPARISON: May 2018 FINDINGS: Right common femoral, superficial femoral, popliteal and right posterior tibial veins are compressible and demonstrate augmentation. Doppler demonstrates good flow. IMPRESSION: No evidence of deep venous thrombosis involving the right lower extremity.
--- NOTE | 2018-09-26 08:53 | EKG ---
Test Date: 2018-09-25 Test Time: 21:23:24 Supervisor Refractory Products: TASH MEASUREMENT RESULTS: Intervals: Rate: 92 IL: 170 QRSD: 80 QT: 370 QTc: 457 [place]: P: 70 IL: 170 QRS: 31 T: 60 INTERPRETIVE STATEMENTS: Sinus rhythm with occasional premature ventricular complexes Possible Anterior infarct, age undetermined Abnormal ECG Compared to ECG 08/13/2018 20:13:55 Ventricular premature complex(es) now present Myocardial infarct finding now present Electronically Signed On 09-26-18 08:52:34 CDT by Pollo Pinto
--- NOTE | 2018-09-26 08:53 | EKG ---
Test Date: 2018-09-26 Test Time: 02:59:20 Ca[place]ic Room Attendant: PRABHU MEASUREMENT RESULTS: Intervals: Rate: 99 DC: 176 QRSD: 84 QT: 372 QTc: 477 [place]: P: 79 DC: 176 QRS: 38 T: 61 INTERPRETIVE STATEMENTS: Normal sinus rhythm Possible Anterior infarct, age undetermined Abnormal ECG Compared to ECG 08/13/2018 20:13:55 Myocardial infarct finding now present Electronically Signed On 09-26-18 08:52:30 CDT by Pollo Pinto
== END 2018-09-26 04:03 | disposition home or self-care (01) ==
LOC: ER 21:06
DX: N39.0 Urinary tract infection, site not specified (principal); I50.40 Unspecified combined systolic (congestive) and diastolic (congestive) heart failure; R06.02 Shortness of breath; I10 Essential (primary) hypertension; I48.91 Unspecified atrial fibrillation; F41.9 Anxiety disorder, unspecified; Z79.82 Long term (current) use of aspirin; Z85.828 Personal history of other malignant neoplasm of skin; Z88.1 Allergy status to other antibiotic agents; Z88.4 Allergy status to anesthetic agent; Z88.5 Allergy status to narcotic agent; Z88.8 Allergy status to other drugs, medicaments and biological substances
CPT/HCPCS: 93005 ×2; 87088; 85025; 87086; 80048; 36415; 83735; 85610; 80076; 87077; 87186; 84484; 83880; 71045; 93971; 94640; 51702; 96375; 96374; 99285; J1940; J0696; J2405 ×2; 81003; 81015

== ENCOUNTER 2019-04-30 10:54 | Emergency (ER) | payer OTHER ==
--- NOTE | 2019-04-30 12:05 | EKG ---
Test Date: 2019-04-30 Test Time: 11:04:52 Senior Benefits Manager: TOSHIA MEASUREMENT RESULTS: Intervals: Rate: 93 HI: 214 QRSD: 70 QT: 356 QTc: 442 [place]: P: 33 HI: 214 QRS: -20 T: 50 INTERPRETIVE STATEMENTS: Sinus rhythm with 1st degree AV block Anterior infarct, age undetermined Abnormal ECG Compared to ECG 09/26/2018 02:59:20 First degree AV block now present Myocardial infarct finding still present Electronically Signed On 04-30-19 12:04:22 AIRCRAFT ASSEMBLER by Krystian Charles
[2019-04-30] MEDS ORDERED: ALBUTEROL 2.5 MG/3 ML NEB SOL ONE (12:12)
--- NOTE | 2019-04-30 12:21 | RAD REPORT ---
EXAM DESCRIPTION: RAD - Chest Pa And Lat (2 Views) - 04/30/2019 11:51 am CLINICAL HISTORY: COUGH, chest and abdominal pain COMPARISON: Chest Single View dated 09/25/2018 TECHNIQUE: Frontal and lateral views of the chest were obtained. FINDINGS: The lungs are underinflated which limits assessment. Lung parenchymal pattern is not clear ly different from comparison. No significant failure or volume overload findings. Heart size is nor mal and central vasculature is within normal limits. No pleural effusion or pneumothorax seen. No a cute bony finding noted. No aortic abnormality. IMPRESSION: Limited shallow inspiration portable study without acute cardiopulmonary finding. No significant change from comparison.
[2019-04-30 12:46] LABS: Basophils % 0.5 % (0-1.3); Hematocrit 45.3 % (36.0-45.0); Lymphocytes % 21.2 % (15.3-44.8); MPV 7.6 fL (7.6-11.3); RBC Red Blood Cell Count 5.21 M/uL (3.86-4.86)
[2019-04-30] MEDS ORDERED: LIDOCAINE VISCOUS 2% SOLN 15 ML UDC ONE ×2 (12:46→15:43)
[2019-04-30 13:05] LABS: BUN Blood Urea Nitrogen 12 mg/dL (7-18); Bicarbonate 32 mmol/L (21-32); Glucose Level 95 mg/dL (74-106); Potassium 4.4 mmol/L (3.5-5.1); Sodium Level 140 mmol/L (136-145); Troponin (Emerg Dept Use Only) < 0.02 ng/mL (0.0-0.045)
[2019-04-30] MEDS ORDERED: PIPER/TAZO/NS 3.375gm 3.375 GM/100 ML BAG ONE (13:37)
--- NOTE | 2019-04-30 13:41 | ER ---
Nurse's Notes [facility] Name: Amy Velasquez Age: 68 yrs Sex: Female : 1950 Arrival Date: 04/30/2019 Time: 10:56 Bed 24 Private MD: Lucho Catalan Diagnosis: Urinary tract infection, site not specified;Chronic obstructive pulmonary disease, unspecified;Abrasion of thigh Presentation: 04/30 10:59 Presenting complaint: Patient states: i hurt all over, my joints and everything, my tw2 chest hurts when i get to get up off the bed, when i cough it hurts in my back and kidneys and bladder hurt, i have had a bad uti and, i cough up white foam and i have to use up my inhalers, this has been going on about 5 days. Transition of care: patient was not received from another setting of care. Onset of symptoms was April 30, 2019. Risk Assessment: Do you want to hurt yourself or someone else? Patient reports no desire to harm self or others. Initial Sepsis Screen: Does the patient meet any 2 criteria? HR > 90 bpm. No. Patient's initial sepsis screen is negative. Does the patient have a suspected source of infection? No. Patient's initial sepsis screen is negative. Care prior to arrival: None. 10:59 Method Of Arrival: Wheelchair tw2 10:59 Acuity: BHARTI 3 tw2 Triage Assessment: 11:01 General: Appears in no apparent distress. obese, unkempt, Behavior is calm, tw2 cooperative, appropriate for age. Pain: Complains of pain in "all over". Respiratory: Reports shortness of breath at rest on exertion cough that is productive, pain with cough pain with movement Onset: The symptoms/episode began/occurred 5 days now, the patient has mild shortness of breath. Historical: - Allergies: 11:05 Amitriptyline; tw2 11:05 Cipro; tw2 11:05 Morphine (rash, Itching); tw2 11:05 Phenobarbital; tw2 - Home Meds: 11:05 Advair Diskus 250-50 mcg/dose Inhl dsdv 1 puff 2 times per day for Prevention of tw2 Bronchospasm with Chronic Bronchitis [Active]; Albuterol Inhl [Active]; amlodipine 5 mg tab 1 tab once daily [Active]; aspirin 81 mg Oral chew 1 tab once daily [Active]; Cheratussin AC 10-100 mg/5 mL Oral liqd 10 mL PRN [Active]; clonazepam 1 mg Oral tab 1 tab once daily [Active]; furosemide 20 mg Oral tab 1 tab once daily [Active]; gabapentin 400 mg Oral cap 1 cap 3 times per day [Active]; lisinopril 40 mg Oral tab 1 tab twice a day [Active]; metoprolol tartrate 50 mg Oral tab 1 tab once daily [Active]; Nexium 40 mg Oral cpDR 1 cap once daily [Active]; nystatin 100,000 unit/gram Topical crea 3 times per day [Active]; Ventolin Rotahaler/Rotacaps Inhl four times a day [Active]; sertraline 50 mg Oral tab 3 tabs once daily [Active]; prednisone 20 mg Oral tab 1 tab 2 times per day [Active]; oxycodone-acetaminophen 10-325 mg Oral tab 1 tab every 6 hours for Pain [Active]; - PMHx: 11:05 Hypertension; COPD; CANCER, SKIN; Atrial Fib; Asthma; ADD/ADHD; CHF; Degenerative disc tw2 disease; Anxiety; Hernia; - PSHx: 11:05 Hernia repair; Hysterectomy; Tubal ligation; tw2 - Immunization history:: Adult Immunizations. - Coronavirus screen:: The patient has NOT traveled to [place], [place], or [place] in the past 14 days. - Social history:: Smoking status: . - Ebola Screening: : Patient denies travel to an Ebola-affected area in the 21 days before illness onset. Screenin:58 Abuse screen: Denies threats or abuse. Nutritional screening: No deficits noted. tw2 Tuberculosis screening: No symptoms or risk factors identified. Fall Risk Secondary diagnosis (15 points) impaired mobility. Assessment: 12:01 General: Appears in no apparent distress. comfortable, Behavior is calm, cooperative. mg2 Pain: Complains of pain in chest. Neuro: Level of Consciousness is awake, alert, obeys commands, Oriented to person, place, time, situation. Cardiovascular: Reports chest pain, shortness of breath. Respiratory: Airway is patent Respiratory effort is even, unlabored. : Reports foul odor urine. EENT: No deficits noted. Derm: Skin is intact, is healthy with good turgor, Skin is pink, warm \\T\\ dry. normal. Musculoskeletal: Circulation, motion, and sensation intact. Capillary refill < 3 seconds. 13:00 Cardiovascular: Rhythm is sinus rhythm. Respiratory: Breath sounds are clear. mg2 13:30 Reassessment: Patient appears in no apparent distress at this time. Patient and/or mg2 family updated on plan of care and expected duration. Pain level reassessed. Patient is alert, oriented x 3, equal unlabored respirations, skin warm/dry/pink. 14:18 Reassessment: patient for dc after completing the antbiotic for an hour. mg2 14:30 Reassessment: Patient appears in no apparent distress at this time. Patient and/or mg2 family updated on plan of care and expected duration. Pain level reassessed. Patient is alert, oriented x 3, equal unlabored respirations, skin warm/dry/pink. Vital Signs: 11:02 BP 160 / 99; Pulse 98; Resp 20; Temp 97.6(TE); Pulse Ox 97% on R/A; Weight 167.83 kg tw2 (R); Height 5 ft. 4 in. (162.56 cm); Pain 8/10; 12:30 BP 155 / 78; Pulse 90; Resp 20; Pulse Ox 97% on 2 lpm NC; mg2 13:30 BP 145 / 80; Pulse 90; Resp 18; Pulse Ox 98% on 2 lpm NC; mg2 14:30 BP 135 / 78; Pulse 90; Resp 18; Pulse Ox 98% on 2 lpm NC; mg2 15:46 BP 141 / 68; Pulse 85; Resp 19; Pulse Ox 97% on R/A; mg2 11:02 Body Mass Index 63.51 (167.83 kg, 162.56 cm) tw2 ED Course: 10:56 Patient arrived in ED. mr 10:56 Lucho Catalan MD is Private Physician. mr 11:01 Triage completed. tw2 11:01 Arm band placed on. tw2 11:03 EKG completed in triage. Results shown to . tw2 11:36 Call light in reach. Adult w/ patient. pt in w/c at this time per her request. tw2 11:41 [facility] Dodd [facility]-C [facility]. snw 11:41 Francis Mcintyre MD is Attending Physician. snw 12:02 No provider procedures requiring assistance completed. mg2 12:07 Sumeet Mulligan, RN is Primary Nurse. mg2 12:45 Inserted saline lock: 24 gauge in left forearm, using aseptic technique. Blood mg2 collected. 13:22 Urine collected: clean catch specimen, clear, arheel colored. jp3 13:22 Urine Culture Sent. jp3 13:22 Urine Microscopic Only Sent. jp3 13:23 Troponin (emerg Dept Use Only) Sent. jp3 13:23 CBC with Diff Sent. jp3 13:23 Chem 7 Sent. jp3 13:23 Blood Culture* Sent. jp3 13:33 Lucho Catalan MD is Referral Physician. snw 15:47 IV discontinued, intact, bleeding controlled, No redness/swelling at site. Pressure mg2 dressing applied. Administered Medications: 12:11 Drug: Albuterol 2.5 mg Route: Inhalation; mg2 13:20 Drug: Viscous Lidocaine Liquid (4 %) 5 ml Route: Mucous Membrane; mg2 14:04 Drug: Zosyn 3.375 grams Route: IVPB; Infused Over: 60 mins; Site: left forearm; mg2 15:45 Follow up: Response: No adverse reaction; IV Status: Completed infusion mg2 15:40 Drug: Viscous Lidocaine Liquid (4 %) 5 ml {Note: topical to pain areas .} Route: Mucous ls4 Membrane; Outcome: 13:33 Discharge ordered by MD. snw 15:47 Discharged to home via wheelchair, with family. mg2 15:47 Condition: stable 15:47 Discharge instructions given to patient, family, Instructed on discharge instructions, follow up and referral plans. medication usage, Demonstrated understanding of instructions, follow-up care, medications, Prescriptions given X 2. 15:47 Patient left the ED. mg2 Addendum: 05/03/2019 07:21 Addendum: Culture Results: Positive urine culture. No further action required. Bacteria e b sensitive to prescribed antibiotic. Signatures: Tamera Dodd, RAEANN WALLPAPER HANGER HELPER-Csnw Donita Chavez mr Melinda Caraballo, RN RN tw2 Maira Villarreal Michele, RN RN mg2 Chris Mejia jp3 Ethel Vela RN RN ls4
--- NOTE | 2019-04-30 13:42 | EDPHYS ---
Physician Documentation [facility] Name: Amy Velasquez Age: 68 yrs Sex: Female : 1950 Arrival Date: 04/30/2019 Time: 10:56 Bed 24 Private MD: Lucho Catalan ED Physician Francis Mcintyre HPI: 04/30 12:47 This 68 yrs old Female presents to ER via Wheelchair with complaints of snw Breathing Difficulty, Chest Pain. 12:47 The patient has shortness of breath with light activity. Onset: The symptoms/episode snw began/occurred gradually. Duration: The symptoms are continuous. Associated signs and symptoms: Pertinent positives: productive cough, malaise, fatigue. Severity of symptoms: At their worst the symptoms were moderate. The patient has experienced similar episodes in the past. It is unknown whether or not the patient has recently seen a physician. 12:[address] Catalan. snw Historical: - Allergies: 11:05 Amitriptyline; tw2 11:05 Cipro; tw2 11:05 Morphine (rash, Itching); tw2 11:05 Phenobarbital; tw2 - Home Meds: 11:05 Advair Diskus 250-50 mcg/dose Inhl dsdv 1 puff 2 times per day for Prevention of tw2 Bronchospasm with Chronic Bronchitis [Active]; Albuterol Inhl [Active]; amlodipine 5 mg tab 1 tab once daily [Active]; aspirin 81 mg Oral chew 1 tab once daily [Active]; Cheratussin AC 10-100 mg/5 mL Oral liqd 10 mL PRN [Active]; clonazepam 1 mg Oral tab 1 tab once daily [Active]; furosemide 20 mg Oral tab 1 tab once daily [Active]; gabapentin 400 mg Oral cap 1 cap 3 times per day [Active]; lisinopril 40 mg Oral tab 1 tab twice a day [Active]; metoprolol tartrate 50 mg Oral tab 1 tab once daily [Active]; Nexium 40 mg Oral cpDR 1 cap once daily [Active]; nystatin 100,000 unit/gram Topical crea 3 times per day [Active]; Ventolin Rotahaler/Rotacaps Inhl four times a day [Active]; sertraline 50 mg Oral tab 3 tabs once daily [Active]; prednisone 20 mg Oral tab 1 tab 2 times per day [Active]; oxycodone-acetaminophen 10-325 mg Oral tab 1 tab every 6 hours for Pain [Active]; - PMHx: 11:05 Hypertension; COPD; CANCER, SKIN; Atrial Fib; Asthma; ADD/ADHD; CHF; Degenerative disc tw2 disease; Anxiety; Hernia; - PSHx: 11:05 Hernia repair; Hysterectomy; Tubal ligation; tw2 - Immunization history:: Adult Immunizations. - Coronavirus screen:: The patient has NOT traveled to [place], [place], or [place] in the past 14 days. - Social history:: Smoking status: . - Ebola Screening: : Patient denies travel to an Ebola-affected area in the 21 days before illness onset. ROS: 12:44 Eyes: Negative for injury, pain, redness, and discharge, ENT: Negative for injury, snw pain, and discharge, Neck: Negative for injury, pain, and swelling, Cardiovascular: Negative for chest pain, palpitations, and edema. 12:44 Abdomen/GI: Negative for abdominal pain, nausea, vomiting, diarrhea, and constipation. 12:44 Neuro: Negative for headache, weakness, numbness, tingling, and seizure, Psych: Negative for depression, anxiety, suicide ideation, homicidal ideation, and hallucinations. 12:44 Constitutional: Positive for body aches, fatigue, malaise, poor PO intake. 12:44 Respiratory: Positive for cough, with white sputum. 12:44 Back: Positive for chronic lower back pain. 12:44 : Positive for urinary symptoms, foul smelling urine. 12:44 MS/extremity: Positive for states she needs bilateral knee replacement . 12:44 Skin: Positive for avulsion, of the left upper thigh. Exam: 12:42 Head/Face: Normocephalic, atraumatic. Eyes: Pupils equal round and reactive to light, snw extra-ocular motions intact. Lids and lashes normal. Conjunctiva and sclera are non-icteric and not injected. Cornea within normal limits. Periorbital areas with no swelling, redness, or edema. ENT: Nares patent. No nasal discharge, no septal abnormalities noted. Tympanic membranes are normal and external auditory canals are clear. Oropharynx with no redness, swelling, or masses, exudates, or evidence of obstruction, uvula midline. Mucous membranes moist. Neck: Trachea midline, no thyromegaly or masses palpated, and no cervical lymphadenopathy. Supple, full range of motion without nuchal rigidity, or vertebral point tenderness. No Meningismus. Chest/axilla: Normal chest wall appearance and motion. Nontender with no deformity. No lesions are appreciated. Cardiovascular: Regular rate and rhythm with a normal S1 and S2. No gallops, murmurs, or rubs. Normal PMI, no JVD. No pulse deficits. Back: No spinal tenderness. No costovertebral tenderness. Full range of motion. Neuro: Awake and alert, GCS 15, oriented to person, place, time, and situation. Cranial nerves II-XII grossly intact. Motor strength 5/5 in all extremities. Sensory grossly intact. Cerebellar exam normal. Normal gait. Psych: Awake, alert, with orientation to person, place and time. Behavior, mood, and affect are within normal limits. 12:42 Constitutional: The patient appears alert, awake, obese, pale. 12:42 Respiratory: the patient does not display signs of respiratory distress, Respirations: prolonged exhalation, shallow respirations, Breath sounds: are clear throughout. 12:42 Abdomen/GI: Inspection: obese Bowel sounds: normal, Palpation: mild abdominal tenderness, in the right lower quadrant. 12:42 Skin: Appearance: Color: pale, Temperature: normal temperature, Moisture: normal moisture, open, abraded area to medial, anterior left thigh. Vital Signs: 11:02 BP 160 / 99; Pulse 98; Resp 20; Temp 97.6(TE); Pulse Ox 97% on R/A; Weight 167.83 kg tw2 (R); Height 5 ft. 4 in. (162.56 cm); Pain 8/10; 12:30 BP 155 / 78; Pulse 90; Resp 20; Pulse Ox 97% on 2 lpm NC; mg2 13:30 BP 145 / 80; Pulse 90; Resp 18; Pulse Ox 98% on 2 lpm NC; mg2 14:30 BP 135 / 78; Pulse 90; Resp 18; Pulse Ox 98% on 2 lpm NC; mg2 15:46 BP 141 / 68; Pulse 85; Resp 19; Pulse Ox 97% on R/A; mg2 11:02 Body Mass Index 63.51 (167.83 kg, 162.56 cm) tw2 MDM: 11:43 Patient medically screened. snw 13:35 Data reviewed: vital signs, nurses notes. Data interpreted: Pulse oximetry: on room air snw is 97 %. Interpretation: normal. Counseling: I had a detailed discussion with the patient and/or guardian regarding: the historical points, exam findings, and any diagnostic results supporting the discharge/admit diagnosis, the presence of at least one elevated blood pressure reading (>120/80) during this emergency department visit, lab results, radiology results, the need for outpatient follow up, to return to the emergency department if symptoms worsen or persist or if there are any questions or concerns that arise at home. Special discussion: Based on the patient's history, exam, and Dx evaluation, there is no indication for emergent intervention or inpatient Tx. It is understood by the patient/guardian that if the Sx's persist or worsen they need to return immediately for re-evaluation. Based on the patient's Hx, exam, and Dx evaluation, there is no indication for emergent surgery or inpatient Tx. It is understood by the patient/guardian that if the Sx's persist or worsen they need to return immediately for re-evaluation. Based on the history and exam findings, there is no indication for further emergent testing or inpatient evaluation. I discussed with the patient/guardian the need to see the primary care provider for further evaluation of the symptoms. 04/30 12:20 Order name: Urine Culture w 04/30 12:20 Order name: Urine Microscopic Only snw 04/30 12:20 Order name: CBC with Diff snw 04/30 12:20 Order name: Blood Culture* w 04/30 12:20 Order name: Chem 7 w 04/30 12:20 Order name: Troponin (emerg Dept Use Only) snw 04/30 11:15 Order name: Chest Pa And Lat (2 Views) XRAY w 04/30 12:49 Order name: CBC with Automated Diff; Complete Time: 12:49 EDMS 04/30 13:09 Order name: Basic Metabolic Panel; Complete Time: 13:11 EDMS 04/30 13:09 Order name: Troponin (Emerg Dept Use Only); Complete Time: 13:11 EDMS 04/30 13:39 Order name: Urine Dipstick--Ancillary (enter results) em1 04/30 13:55 Order name: Urine Microscopic Only; Complete Time: 13:55 EDMS 04/30 14:57 Order name: Blood Culture [facility] 04/30 11:15 Order name: EKG; Complete Time: 11:16 snw 04/30 11:15 Order name: EKG - Nurse/Tech; Complete Time: 12:03 snw 04/30 12:20 Order name: Urine Dipstick-Ancillary (obtain specimen); Complete Time: 13:20 snw Administered Medications: 12:11 Drug: Albuterol 2.5 mg Route: Inhalation; mg2 13:20 Drug: Viscous Lidocaine Liquid (4 %) 5 ml Route: Mucous Membrane; mg2 14:04 Drug: Zosyn 3.375 grams Route: IVPB; Infused Over: 60 mins; Site: left forearm; mg2 15:45 Follow up: Response: No adverse reaction; IV Status: Completed infusion mg2 15:40 Drug: Viscous Lidocaine Liquid (4 %) 5 ml {Note: topical to pain areas .} Route: Mucous ls4 Membrane; Disposition: 16:32 Co-signature as Attending Physician, Francis Mcintyre MD. rn Disposition: 04/30/19 13:33 Discharged to Home. Impression: Urinary tract infection, site not specified, Chronic obstructive pulmonary disease, unspecified, Abrasion of thigh. - Condition is Stable. - Discharge Instructions: Abrasion, Chronic Obstructive Pulmonary Disease, Hypertension, Urinary Tract Infection, Adult, Rehydration, Adult. - Prescriptions for Augmentin 875- 125 mg Oral Tablet - take 1 tablet by ORAL route every 12 hours for 10 days; 20 tablet. Bactroban 2 % Topical Ointment - Apply to affected area 1 application by TOPICAL route every 12 hours; 15 gram. - Medication Reconciliation Form, Thank You Letter, Antibiotic Education, Prescription Opioid Use form. - Follow up: Lucho Catalan MD; When: 1 week; Reason: Recheck today's complaints, Continuance of care, Re-evaluation by your physician. Follow up: Emergency Department; When: As needed; Reason: Worsening of condition. - Problem is new. - Symptoms are unchanged. Signatures: Dispatcher [employer] [facility] Tamera Dodd, KNURLING MACHINE TENDER-C KNURLING MACHINE TENDER-Csnw Francis Mcintyre MD MD rn Melinda Caraballo RN RN tw2 Sumeet Mulligan RN RN mg2 Ethel Vela RN RN ls4 Corrections: (The following items were deleted from the chart) 13:35 13:33 04/30/2019 13:33 Discharged to Home. Impression: Urinary tract infection, site snw not specified; Chronic obstructive pulmonary disease, unspecified. Condition is Stable. Forms are Medication Reconciliation Form, Thank You Letter, Antibiotic Education, Prescription Opioid Use. Follow up: Lucho Catalan; When: 1 week; Reason: Recheck today's complaints, Continuance of care, Re-evaluation by your physician. Follow up: Emergency Department; When: As needed; Reason: Worsening of condition. Problem is new. Symptoms are unchanged. snw 15:47 13:35 04/30/2019 13:33 Discharged to Home. Impression: Urinary tract infection, site mg2 not specified; Chronic obstructive pulmonary disease, unspecified; Abrasion of thigh. Condition is Stable. Discharge Instructions: Abrasion, Chronic Obstructive Pulmonary Disease, Hypertension, Urinary Tract Infection, Adult, Rehydration, Adult. Prescriptions for Augmentin 875-125 mg Oral Tablet - take 1 tablet by ORAL route every 12 hours for 10 days; 20 tablet, Bactroban 2 % Topical Ointment - Apply to affected area 1 application by TOPICAL route every 12 hours; 15 gram. and Forms are Medication Reconciliation Form, Thank You Letter, Antibiotic Education, Prescription Opioid Use. Follow up: Lucho Catalan; When: 1 week; Reason: Recheck today's complaints, Continuance of care, Re-evaluation by your physician. Follow up: Emergency Department; When: As needed; Reason: Worsening of condition. Problem is new. Symptoms are unchanged. snw
[2019-04-30 13:53] LABS: Calcium Oxalate Crystals- Ur FEW (NONE SEEN); Urine Bacteria 20-50 /HPF (<20); Urine Culture Reflex Order NOT NEEDED; Urine Mucus 1+ /HPF (NONE SEEN); Urine RBC <5 /HPF (NONE SEEN)
[2019-04-30] MEDS ORDERED: ONDANSETRON 4 MG (ODT) TAB ONE (15:09)
[2019-04-30 16:06] VITALS: TEMP 97.6
[2019-04-30 16:10] VITALS: BP 141/68; O2SAT 97
[2019-04-30 18:59] LABS: Urine Blood TRACE (NEG); Urine Glucose NEGATIVE (NEG); Urine Protein TRACE (NEG); Urine Specific Gravity >1.030 (1.005-1.030)
== END 2019-04-30 15:47 | disposition home or self-care (01) ==
LOC: ER 10:54
DX: J44.9 Chronic obstructive pulmonary disease, unspecified (principal); N39.0 Urinary tract infection, site not specified; S70.312A Abrasion, left thigh, initial encounter; X58.XXXA Exposure to other specified factors, initial encounter; Z88.1 Allergy status to other antibiotic agents; Z88.6 Allergy status to analgesic agent; I10 Essential (primary) hypertension; I48.91 Unspecified atrial fibrillation; I50.9 Heart failure, unspecified
CPT/HCPCS: 96365; 93005; 87040; 87088; 85025; 87086; 80048; 36415; 87077 ×2; 87186 ×2; 84484; 71046; 99285; 96366; J2543; 81003; 81015

== ENCOUNTER 2019-08-03 13:03 | Emergency (ER) | payer OTHER ==
[2019-08-03] MEDS ORDERED: ALBUTEROL 2.5 MG/3 ML NEB SOL ONE (13:53)
[2019-08-03 14:49] LABS: Absolute Lymphocytes (CBC) 2.4 K/uL (0.7-4.9); Basophils % 0.5 % (0-1.3); Hematocrit 43.2 % (36.0-45.0); MPV 8.1 fL (7.6-11.3); RBC Red Blood Cell Count 4.98 M/uL (3.86-4.86)
[2019-08-03 14:53] LABS: Protime INR 1.03
[2019-08-03 15:02] LABS: ALT/SGPT 14 U/L (12-78); AST/SGOT 16 U/L (15-37); Albumin 2.8 g/dL (3.4-5.0); Alkaline Phosphatase 78 U/L (45-117); BUN Blood Urea Nitrogen 14 mg/dL (7-18); Bicarbonate 33 mmol/L (21-32); Bilirubin Direct 0.1 mg/dL (0-0.2); Bilirubin Total 0.4 mg/dL (0.2-1.0); Glucose Level 100 mg/dL (74-106); Magnesium 2.3 mg/dL (1.8-2.4); NT PRO-BNP 2494 pg/mL (<125); Potassium 4.8 mmol/L (3.5-5.1); Protein, Total 6.3 g/dL (6.4-8.2); Sodium Level 141 mmol/L (136-145); Troponin (Emerg Dept Use Only) < 0.02 ng/mL (0.0-0.045)
[2019-08-03] MEDS ORDERED: HYDROCODONE/APAP 10/325 TAB ONE (15:21)
[2019-08-03] MEDS ORDERED: predniSONE 20 MG TAB ONE (15:21)
[2019-08-03] MEDS ORDERED: CEFTRIAXONE/SWI 1gm 1 GM/10 ML SYR ONE (15:21)
--- NOTE | 2019-08-03 15:22 | RAD REPORT ---
EXAM DESCRIPTION: Vikash Single View08/03/2019 3:05 pm CLINICAL HISTORY: Chest pain COMPARISON: April 2019 FINDINGS: The lungs appear clear of acute infiltrate. The heart is normal size IMPRESSION: No acute abnormalities displayed
[2019-08-03] MEDS ORDERED: ONDANSETRON 4 MG (ODT) TAB ONE (15:25)
--- NOTE | 2019-08-03 16:49 | ER ---
Nurse's Notes [facility] Name: Amy Velasquez Age: 69 yrs Sex: Female : 1950 Arrival Date: 08/03/2019 Time: 13:05 Bed 14 Private MD: Diagnosis: Urinary tract infection, site not specified;Chronic obstructive pulmonary disease with (acute) exacerbation Presentation: 08/02 13:11 Chief complaint: Patient states: Chest pain started Saturday night, comes and goes. SOB ca1 with chest pain. Reports foul smelling urine, reports flank pain on both sides, reports suprapubic pain. Reports burning with urination. Denies fever. Coronavirus screen: Proceed with normal triage. Patient denies a cough. Patient reports shortness of breath or difficulty breathing. Patient denies measured and/or subjective temperature greater than 100.4F prior to today's visit. Patient denies travel on a cruise ship or to a country the [facility] currently lists as an affected area. Patient denies contact with known and/or suspected case of COVID-19. Ebola Screen: Patient negative for fever greater than or equal to 101.5 degrees Fahrenheit, and additional compatible Ebola Virus Disease symptoms Patient denies exposure to infectious person. Patient denies travel to an Ebola-affected area in the 21 days before illness onset. No symptoms or risks identified at this time. Initial Sepsis Screen: Does the patient meet any 2 criteria? No. Patient's initial sepsis screen is negative. Does the patient have a suspected source of infection? No. Patient's initial sepsis screen is negative. Risk Assessment: Do you want to hurt yourself or someone else? Patient reports no desire to harm self or others. Onset of symptoms was August 03, 2019. 13:11 Method Of Arrival: Wheelchair ca1 13:11 Acuity: BHARTI 3 ca1 Triage Assessment: 14:07 General: Appears in no apparent distress. comfortable, Behavior is calm, cooperative. ls4 14:07 Neuro: No deficits noted. Cardiovascular: No deficits noted. Cardiovascular: Reports ls4 None. Respiratory: Airway is patent Respiratory effort is even, unlabored, Respiratory pattern is regular. Historical: - Allergies: 13:15 Amitriptyline; ca1 13:15 Cipro; ca1 13:15 Morphine (rash, Itching); ca1 13:15 Phenobarbital; ca1 - PMHx: 13:15 ADD/ADHD; Anxiety; Asthma; Atrial Fib; CANCER, SKIN; CHF; COPD; Degenerative disc ca1 disease; Hernia; Hypertension; - PSHx: 13:15 Hernia repair; Hysterectomy; Tubal ligation; ca1 - Immunization history:: Adult Immunizations up to date, Pneumococcal vaccine is up to date, Flu vaccine is up to date. - Social history:: Smoking status: Patient denies any tobacco usage or history of. Screenin:28 Abuse screen: Denies threats or abuse. Denies injuries from another. Nutritional ls4 screening: No deficits noted. Tuberculosis screening: No symptoms or risk factors identified. Fall Risk None identified. Assessment: 15:30 Pain: Complains of pain in suprapubic area, right lower quadrant and left lower ls4 quadrant. Neuro: No deficits noted. Cardiovascular: Denies chest pain. Respiratory: Reports shortness of breath on exertion Breath sounds are diminished. GI: Bowel sounds present X 4 quads. Abd is soft and non tender X 4 quads. Reports cramping, intolerance of fluids, intolerance of food, nausea, Pain is 9 out of 10 on a pain scale. Vital Signs: 13:11 BP 129 / 73; Pulse 102; Resp 20 S; Temp 98.7(O); Pulse Ox 93% on R/A; Weight 166.47 kg ca1 (R); Height 5 ft. 4 in. (162.56 cm) (R); Pain 9/10; 13:11 Body Mass Index 62.99 (166.47 kg, 162.56 cm) ca1 ED Course: 13:05 Patient arrived in ED. ag5 13:13 Triage completed. ca1 13:15 Arm band placed on right wrist. ca1 13:24 Melinda Caraballo, SHAD is Primary Nurse. tw2 13:25 Blayne Crocker NP is PHCP. pm1 13:25 You Dao MD is Attending Physician. pm1 14:01 Patient has correct armband on for positive identification. Bed in low position. Call ls4 light in reach. Side rails up X 1. environmental monitoring specialist on. Pulse ox on. NIBP on. 14:07 First set of blood cultures drawn BY ME, done in L ARM. lt1 14:12 Inserted saline lock: 22 gauge in left forearm, using aseptic technique. lt1 15:05 XRAY Chest (1 view) In Process Unspecified. EDMS 17:59 Urine Culture Sent. lt1 17:59 Straight cath inserted, using sterile technique, 16 Fr. Specimen obtained. Returned lt1 raheel urine. Patient tolerated well. 19:01 No provider procedures requiring assistance completed. IV discontinued, intact, tw2 bleeding controlled, No redness/swelling at site. Pressure dressing applied. Administered Medications: 14:02 Drug: Albuterol 2.5 mg Route: Inhalation; ls4 15:26 Drug: Rocephin 1 grams Route: IV; Rate: calculated rate; Site: left antecubital; ls4 15:26 Drug: predniSONE 60 mg Route: PO; ls4 15:30 Follow up: Response: No adverse reaction tw2 15:28 Drug: Zofran (Ondansetron) 4 mg Route: PO; ls4 15:30 Follow up: Response: No adverse reaction tw2 15:28 Drug: [place] 10 mg-325 mg 1 tabs Route: PO; ls4 16:00 Follow up: Response: No adverse reaction; Pain is decreased; RASS: Alert and Calm (0) tw2 Outcome: 16:48 Discharge ordered by MD. pm1 17:00 Condition: PT DISCHARGE DELAYED, AWAITING URINE SPECIMEN AND RIDE. ls4 19:01 Patient left the ED. ls4 19:01 Discharged to home via wheelchair. tw2 19:01 Condition: stable 19:01 Discharge instructions given to patient, Instructed on discharge instructions, follow up and referral plans. no drinking with medication, no driving heavy equipment, medication usage, Demonstrated understanding of instructions, follow-up care, medications, Prescriptions given X 4. Addendum: 08/07/2019 07:48 Addendum: Culture Results: Positive urine culture. No further action required. Bacteria e b sensitive to prescribed antibiotic. Signatures: Dispatcher [employer] EDMS Blayne Crocker NP CEMENTING BULK MATERIAL OPERATOR pm1 Melinda Caraballo RN RN tw2 Maira Villarreal Lisa, RN RN ls4 Peggy Sanchez RN RN [facility] Luis Mcguire 5 Ofelia Kramer lt1 Corrections: (The following items were deleted from the chart) 08/03 15:37 05 19:01 Discharge instructions given to patient, Instructed on discharge ls4 instructions, follow up and referral plans. no drinking with medication, no driving heavy equipment, medication usage, Demonstrated understanding of instructions, follow-up care, medications, Prescriptions given X 4, tw2 08/03 15:37 15:36 Condition: PT DISCHARGE DELAYED, AWAITING URINE SPECIMEN AND RIDE. ls4 ls4
--- NOTE | 2019-08-03 16:50 | EDPHYS ---
Physician Documentation [facility] Name: Amy Velasquez Age: 69 yrs Sex: Female : 1950 Arrival Date: 08/03/2019 Time: 13:05 Bed 14 Private MD: ALEXA Physician You Dao HPI: 08/02 13:49 This 69 yrs old Female presents to ER via Wheelchair with complaints of Chest pm1 Pain, Dysuria. 13:49 The patient or guardian reports chest pain that is located primarily in the mid-sternal pm1 area. Onset: 2 day(s) ago. The pain does not radiate. Associated signs and symptoms: Pertinent positives: suprapubic pain, flank pain, burning with urination, shortness of breath, Pertinent negatives: diaphoresis, dizziness, headache, nausea, palpitations, vomiting, diarrhea. The chest pain is described as aching. Modifying factors: The symptoms are alleviated by nothing. the symptoms are aggravated by nothing. The patient has experienced similar episodes in the past, several times. Historical: - Allergies: 13:15 Amitriptyline; ca1 13:15 Cipro; ca1 13:15 Morphine (rash, Itching); ca1 13:15 Phenobarbital; ca1 - PMHx: 13:15 ADD/ADHD; Anxiety; Asthma; Atrial Fib; CANCER, SKIN; CHF; COPD; Degenerative disc ca1 disease; Hernia; Hypertension; - PSHx: 13:15 Hernia repair; Hysterectomy; Tubal ligation; ca1 - Immunization history:: Adult Immunizations up to date, Pneumococcal vaccine is up to date, Flu vaccine is up to date. - Social history:: Smoking status: Patient denies any tobacco usage or history of. ROS: 13:49 Constitutional: Negative for fever, chills, and weight loss. pm1 13:49 MS/Extremity: Negative for injury and deformity, Skin: Negative for injury, rash, and discoloration, Neuro: Negative for headache, weakness, numbness, tingling, and seizure. 13:49 Cardiovascular: Positive for chest pain, Negative for edema, palpitations. 13:49 Respiratory: Positive for shortness of breath, Negative for cough. 13:49 Abdomen/GI: Positive for abdominal pain, of the suprapubic area, Negative for nausea, vomiting, and diarrhea. 13:49 Back: Positive for flank pain, bilaterally. 13:49 : Positive for burning with urination. Exam: 13:49 Constitutional: This is a well developed, well nourished patient who is awake, alert, pm1 and in no acute distress. Head/Face: Normocephalic, atraumatic. Chest/axilla: Normal chest wall appearance and motion. Nontender with no deformity. No lesions are appreciated. 13:49 Back: No spinal tenderness. No costovertebral tenderness. Full range of motion. Skin: Warm, dry with normal turgor. Normal color with no rashes, no lesions, and no evidence of cellulitis. MS/ Extremity: Pulses equal, no cyanosis. Neurovascular intact. Full, normal range of motion. 13:49 Cardiovascular: Exam negative for acute changes, Rate: tachycardic, actual rate is 102 bpm, Rhythm: regular, Pulses: no pulse deficits are appreciated. 13:49 Respiratory: Exam negative for acute changes, respiratory distress, shortness of breath, wheezing, the patient does not display signs of respiratory distress, Respirations: normal. 13:49 Abdomen/GI: Inspection: obese Palpation: abdomen is soft and non-tender, in all quadrants, mass, is not appreciated, rebound tenderness, is not appreciated. 13:49 Neuro: Exam negative for acute changes, Orientation: is normal, Mentation: is normal, Motor: moves all fours. Vital Signs: 13:11 BP 129 / 73; Pulse 102; Resp 20 S; Temp 98.7(O); Pulse Ox 93% on R/A; Weight 166.47 kg ca1 (R); Height 5 ft. 4 in. (162.56 cm) (R); Pain 9/10; 13:11 Body Mass Index 62.99 (166.47 kg, 162.56 cm) ca1 MDM: 13:26 Patient medically screened. pm1 16:45 Data reviewed: vital signs. Data interpreted: Pulse oximetry: on room air is 93 %. pm1 Interpretation: baseline for patient with hx of COPD. 16:45 Counseling: I had a detailed discussion with the patient and/or guardian regarding: the pm1 historical points, exam findings, and any diagnostic results supporting the discharge/admit diagnosis, lab results, radiology results, the need for outpatient follow up, a family practitioner, to return to the emergency department if symptoms worsen or persist or if there are any questions or concerns that arise at home. 08/02 13:23 Order name: Basic Metabolic Panel; Complete Time: 15:05 [facility] 08/02 13:23 Order name: CBC with Diff; Complete Time: 14:59 [facility] 08/02 13:23 Order name: LFT's; Complete Time: 15:05 [facility] 08/02 13:23 Order name: Magnesium; Complete Time: 15:05 [facility] 08/02 13:23 Order name: NT PRO-BNP; Complete Time: 15:05 [facility] 08/02 13:23 Order name: PT-INR; Complete Time: 15:05 [facility] 08/02 13:23 Order name: Troponin (emerg Dept Use Only); Complete Time: 15:05 [facility] 08/02 13:23 Order name: XRAY Chest (1 view); Complete Time: 15:27 [facility] 08/02 13:34 Order name: Blood Culture Adult (2) pm1 08/02 17:33 Order name: Urine Culture 08/02 17:41 Order name: Urine Dipstick--Ancillary (enter results) em1 08/02 13:23 Order name: EKG; Complete Time: 13:24 [facility] 08/02 13:23 Order name: Cardiac monitoring; Complete Time: 13:44 [facility] 08/02 13:23 Order name: EKG - Nurse/Tech; Complete Time: 13:45 [facility] 08/02 13:23 Order name: IV Saline Lock; Complete Time: 13:44 [facility] 08/02 13:23 Order name: Labs collected and sent; Complete Time: 13:44 [facility] 08/02 13:23 Order name: O2 Per Protocol; Complete Time: 13:44 [facility] 08/02 13:23 Order name: O2 Sat Monitoring; Complete Time: 13:44 [facility] 08/02 13:23 Order name: Urine Dipstick-Ancillary (obtain specimen); Complete Time: 17:59 ca1 Administered Medications: 14:02 Drug: Albuterol 2.5 mg Route: Inhalation; ls4 15:26 Drug: Rocephin 1 grams Route: IV; Rate: calculated rate; Site: left antecubital; ls4 15:26 Drug: predniSONE 60 mg Route: PO; ls4 15:30 Follow up: Response: No adverse reaction tw2 15:28 Drug: Zofran (Ondansetron) 4 mg Route: PO; ls4 15:30 Follow up: Response: No adverse reaction tw2 15:28 Drug: [place] 10 mg-325 mg 1 tabs Route: PO; ls4 16:00 Follow up: Response: No adverse reaction; Pain is decreased; RASS: Alert and Calm (0) tw2 Disposition: 20:11 Co-signature as Attending Physician, You Dao MD I agree with the assessment and phoebe plan of care. Disposition: 08/03/19 16:48 Discharged to Home. Impression: Chronic obstructive pulmonary disease with (acute) exacerbation, Urinary tract infection, site not specified. - Condition is Stable. - Discharge Instructions: Urinary Tract Infection, Adult, Chronic Obstructive Pulmonary Disease Exacerbation. - Prescriptions for Augmentin 875- 125 mg Oral Tablet - take 1 tablet by ORAL route every 12 hours for 10 days; 20 tablet. Prednisone 20 mg Oral Tablet - take 3 tablet by ORAL route once daily for 5 days; 15 tablet. Albuterol Sulfate 90 mcg/actuation - inhale 1-2 puff by INHALATION route every 4-6 hours; 1 Inhaler. Zofran ODT 4 mg Oral tablet,disintegrating - place 1 tablet by TRANSLINGUAL route every 8 hours As needed; 20 tablet. - Medication Reconciliation Form, Thank You Letter, Antibiotic Education, Prescription Opioid Use form. - Follow up: Emergency Department; When: As needed; Reason: Worsening of condition. Follow up: Private Physician; When: 2 - 3 days; Reason: Recheck today's complaints, Continuance of care, Re-evaluation by your physician. - Problem is new. - Symptoms have improved. Signatures: Dispatcher [employer] EDMO You Dao MD MD cha Marinas, Patrick, JOSE STEAMFITTER APPRENTICE pm1 Ethel Vela RN RN ls4 Peggy Sanchez RN RN ca1 Melinda Caraballo RN tw2 Corrections: (The following items were deleted from the chart) 19:01 16:48 08/03/2019 16:48 Discharged to Home. Impression: Chronic obstructive pulmonary ls4 disease with (acute) exacerbationUrinary tract infection, site not specified. Condition is Stable. Forms are Medication Reconciliation Form, Thank You Letter, Antibiotic Education, Prescription Opioid Use. Follow up: Emergency Department; When: As needed; Reason: Worsening of condition. Follow up: Private Physician; When: 2 - 3 days; Reason: Recheck today's complaints, Continuance of care, Re-evaluation by your physician. Problem is new. Symptoms have improved. pm1
[2019-08-03 17:46] LABS: Urine Blood 2+ (NEG); Urine Glucose NEGATIVE (NEG); Urine Protein 1+ (NEG); Urine Specific Gravity 1.025 (1.005-1.030)
--- NOTE | 2019-08-03 18:44 | EKG ---
Test Date: 2019-08-03 Test Time: 13:37:49 Speech Therapist Early Intervention: TASH MEASUREMENT RESULTS: Intervals: Rate: 94 NC: 172 QRSD: 78 QT: 362 QTc: 452 Holmes: P: 51 NC: 172 QRS: -33 T: 62 INTERPRETIVE STATEMENTS: Normal sinus rhythm Left axis deviation Cannot rule out Anterior infarct, age undetermined Abnormal ECG Compared to ECG 04/30/2019 11:04:52 Left-axis deviation now present First degree AV block no longer present Myocardial infarct finding still present Electronically Signed On 08-03-19 18:43:51 CDT by Pollo Pinto
[2019-08-03 19:07] VITALS: BP 129/73; TEMP 98.7; O2SAT 93
== END 2019-08-03 19:01 | disposition home or self-care (01) ==
LOC: ER 13:03
DX: J44.1 Chronic obstructive pulmonary disease with (acute) exacerbation (principal); N39.0 Urinary tract infection, site not specified; I10 Essential (primary) hypertension; Z85.828 Personal history of other malignant neoplasm of skin; Z88.1 Allergy status to other antibiotic agents; Z88.5 Allergy status to narcotic agent; Z88.8 Allergy status to other drugs, medicaments and biological substances
CPT/HCPCS: 93005; 87040 ×2; 87088; 85025; 87086; 80048; 36415; 83735; 85610; 80076; 87077; 87186; 81003; 84484; 83880; 71045; 51702; 96374; 99285; J0696; J7512

== ENCOUNTER 2019-11-01 14:06 | Inpatient (IN) | payer OTHER ==
[2019-11-01 14:27] LABS: Arterial Blood Carboxyhemoglob 1.9 % (0-1.5); Blood Gas Oxyhemoglobin 94.1 % (94-97); Blood O2 Saturation 96.6 % (92-98.5)
[2019-11-01] MEDS ORDERED: FUROSEMIDE 40 MG/4 ML VIAL ONE (14:57)
[2019-11-01 15:00] LABS: Basophils % 0.4 % (0-1.3); Lymphocytes % 4.4 % (15.3-44.8); MPV 8.6 fL (7.6-11.3); Protime INR 1.24; RBC Red Blood Cell Count 5.03 M/uL (3.86-4.86)
[2019-11-01 15:13] LABS: ALT/SGPT 17 U/L (12-78); AST/SGOT 23 U/L (15-37); Alkaline Phosphatase 74 U/L (45-117); BUN Blood Urea Nitrogen 19 mg/dL (7-18); Bicarbonate 26 mmol/L (21-32); Bilirubin Direct 0.3 mg/dL (0-0.2); Bilirubin Total 0.9 mg/dL (0.2-1.0); Glucose Level 158 mg/dL (74-106); Magnesium 1.7 mg/dL (1.8-2.4); NT PRO-BNP 5770 pg/mL (<125); Protein, Total 6.5 g/dL (6.4-8.2); Sodium Level 143 mmol/L (136-145); Troponin (Emerg Dept Use Only) < 0.02 ng/mL (0.0-0.045)
--- NOTE | 2019-11-01 15:32 | RAD REPORT ---
EXAM DESCRIPTION: RAD - Chest Single View - 11/01/2019 3:13 pm CLINICAL HISTORY: DYSPNEA Chest pain. COMPARISON: Chest Single View dated 08/03/2019; Chest Pa And Lat (2 Views) dated 04/30/2019; Chest Sing le View dated 09/25/2018; Chest Single View dated 08/15/2018 FINDINGS: Portable technique limits examination quality. Mild interstitial pulmonary edema suspected. The heart is moderately enlarged in size. No displaced f ractures. IMPRESSION: Mild CHF.
--- NOTE | 2019-11-01 15:39 | EDPHYS ---
Physician Documentation [facility] Name: Amy Velasquez Age: 69 yrs Sex: Female : 1950 Arrival Date: 11/01/2019 Time: 14:10 Bed 4 Private MD: ED Physician Francis Mcintyre HPI: 10/31 15:14 This 69 yrs old Female presents to ER via EMS with complaints of Shortness Of jr8 Breath. 15:14 The patient has shortness of breath at rest. Onset: The symptoms/episode began/occurred jr8 acutely, today. Duration: The symptoms are continuous, and are steadily getting worse. The patient's shortness of breath is aggravated by talking. Associated signs and symptoms: The patient has no apparent associated signs or symptoms. Severity of symptoms: At their worst the symptoms were severe in the emergency department the symptoms have improved moderately. The patient has experienced similar episodes in the past, a few times. The patient has not recently seen a physician. Historical: - Allergies: 14:22 Morphine (rash, Itching); bp 14:22 Phenobarbital; bp 14:22 Cipro; bp 14:22 Amitriptyline; bp - Home Meds: 14:22 oxycodone-acetaminophen 10-325 mg Oral tab 1 tab every 6 hours for Pain [Active]; bp sertraline 50 mg Oral tab 3 tabs once daily [Active]; metoprolol tartrate 50 mg Oral tab 1 tab once daily [Active]; furosemide 20 mg Oral tab 1 tab once daily [Active]; - PMHx: 14:22 ADD/ADHD; Anxiety; Asthma; Atrial Fib; CANCER, SKIN; CHF; COPD; Degenerative disc bp disease; Hernia; Hypertension; - Immunization history:: Adult Immunizations unknown. - Social history:: Smoking status: Patient reports the use of cigarette tobacco products, unknown amount. ROS: 15:36 Eyes: Negative for injury, pain, redness, and discharge, ENT: Negative for injury, jr8 pain, and discharge, Neck: Negative for injury, pain, and swelling, Cardiovascular: Negative for chest pain, palpitations, and edema, Abdomen/GI: Negative for abdominal pain, nausea, vomiting, diarrhea, and constipation, Back: Negative for injury and pain, MS/Extremity: Negative for injury and deformity, Skin: Negative for injury, rash, and discoloration, Neuro: Negative for headache, weakness, numbness, tingling, and seizure. 15:36 Respiratory: Positive for dyspnea on exertion, orthopnea, shortness of breath. Exam: 15:36 Cardiovascular: Rate: tachycardic, Rhythm: regular, Pulses: Pulses are 2+ in right jr8 radial artery and left radial artery. Heart sounds: normal, Edema: 2+ edema to level of left midcalf, left ankle, left foot, right midcalf, right ankle and right foot. 15:36 Respiratory: mild respiratory distress is noted, Respirations: tachypnea, that is mild, Breath sounds: rales, that are mild, are located in both bases. 15:36 Eyes: Pupils equal round and reactive to light, extra-ocular motions intact. Lids and jr8 lashes normal. Conjunctiva and sclera are non-icteric and not injected. Cornea within normal limits. Periorbital areas with no swelling, redness, or edema. ENT: Nares patent. No nasal discharge, no septal abnormalities noted. Tympanic membranes are normal and external auditory canals are clear. Oropharynx with no redness, swelling, or masses, exudates, or evidence of obstruction, uvula midline. Mucous membranes moist. Neck: Trachea midline, no thyromegaly or masses palpated, and no cervical lymphadenopathy. Supple, full range of motion without nuchal rigidity, or vertebral point tenderness. No Meningismus. Abdomen/GI: Soft, non-tender, with normal bowel sounds. No distension or tympany. No guarding or rebound. No evidence of tenderness throughout. Back: No spinal tenderness. No costovertebral tenderness. Full range of motion. Skin: Warm, dry with normal turgor. Normal color with no rashes, no lesions, and no evidence of cellulitis. MS/ Extremity: Pulses equal, no cyanosis. Neurovascular intact. Full, normal range of motion. Neuro: Awake and alert, GCS 15, oriented to person, place, time, and situation. Cranial nerves II-XII grossly intact. Motor strength 5/5 in all extremities. Sensory grossly intact. Vital Signs: 14:10 BP 114 / 74; Pulse 118; Resp 32; Temp 97; Pulse Ox 99% on 15% CPAP; bp 14:36 BP 122 / 94; Pulse 110; Resp 14; Pulse Ox 100% ; bp 15:24 BP 126 / 81; Pulse 111; Resp 24; Pulse Ox 98% on 30% BiPAP; bp 17:14 BP 116 / 69; Pulse 100; Resp 18; Pulse Ox 100% ; bp MDM: 14:13 Patient medically screened. [facility] 15:38 Data reviewed: vital signs, nurses notes, lab test result(s), EKG, radiologic studies, [facility] plain films. Data interpreted: Pulse oximetry: on room air is 98 %. Interpretation: normal. Counseling: I had a detailed discussion with the patient and/or guardian regarding: the historical points, exam findings, and any diagnostic results supporting the discharge/admit diagnosis, lab results, radiology results, the need for further work-up and treatment in the hospital. 10/31 14:14 Order name: Basic Metabolic Panel [facility] 10/31 14:14 Order name: CBC with Diff [facility] 10/31 14:14 Order name: LFT's [facility] 10/31 14:14 Order name: Magnesium [facility] 10/31 14:14 Order name: NT PRO-BNP [facility] 10/31 14:14 Order name: PT-INR [facility] 10/31 14:14 Order name: Troponin (emerg Dept Use Only) [facility] 10/31 14:14 Order name: ABG [facility] 10/31 14:32 Order name: ABG Arterial Blood Gas; Complete Time: 14:40 EDMS 10/31 14:43 Order name: Influenza Screen (A EDNE 10/31 15:11 Order name: Protime (+INR); Complete Time: 15:12 EDMS 10/31 15:15 Order name: Basic Metabolic Panel; Complete Time: 15:28 EDMS 10/31 15:15 Order name: Liver (Hepatic) Function; Complete Time: 15:28 EDMS 10/31 14:14 Order name: XRAY Chest (1 view) [facility] 10/31 14:14 Order name: BIPAP [facility] 10/31 15:15 Order name: Troponin (Emerg Dept Use Only); Complete Time: 15:28 EDMS 10/31 15:15 Order name: NT PRO-BNP; Complete Time: 15:28 EDMS 10/31 15:15 Order name: Magnesium; Complete Time: 15:28 EDMS 10/31 15:24 Order name: CBC with Automated Diff; Complete Time: 15:55 EDMS 10/31 15:32 Order name: RAD; Complete Time: 15:34 EDMS 10/31 15:35 Order name: Procalcitonin [facility] 10/31 15:35 Order name: Blood Culture Adult (2) [facility] 10/31 15:35 Order name: Lactate [facility] 10/31 15:36 Order name: Urine Microscopic Only [facility] 10/31 15:52 Order name: CBC Smear Scan; Complete Time: 15:55 EDNE 10/31 16:22 Order name: Lactate; Complete Time: 15:26 EDNE 10/31 17:43 Order name: Procalcitonin; Complete Time: 15:26 EDNE 10/31 14:14 Order name: EKG; Complete Time: 14:15 [facility] 10/31 14:14 Order name: Cardiac monitoring; Complete Time: 14:43 [facility] 10/31 14:14 Order name: EKG - Nurse/Tech; Complete Time: 14:37 [facility] 10/31 14:14 Order name: IV Saline Lock; Complete Time: 14:37 [facility] 10/31 14:14 Order name: Labs collected and sent; Complete Time: 14:43 [facility] 10/31 14:14 Order name: O2 Per Protocol; Complete Time: 14:43 [facility] 10/31 14:14 Order name: O2 Sat Monitoring; Complete Time: 14:43 Administered Medications: 14:30 Drug: Lasix 40 mg Route: IVP; Site: right hand; bp 14:53 Follow up: Response: No adverse reaction bp 16:05 Drug: Zosyn 3.375 grams Route: IVPB; Infused Over: 60 mins; Site: right hand; bp 16:56 Follow up: IV Status: Completed infusion; IV Intake: 100ml bp Disposition: 19:03 Co-signature as Attending Physician, Francis Mcintyre MD. rn Disposition: 11/01/19 15:39 Hospitalization ordered by Prince Sherley for Inpatient Admission. Preliminary diagnosis are Acute combined systolic (congestive) and diastolic (congestive) heart failure, Chronic obstructive pulmonary disease with (acute) exacerbation, Elevated white blood cell count. - Bed requested for Telemetry/MedSurg (Inpatient). - Status is Inpatient Admission. bp - Condition is Fair. - Problem is new. - Symptoms have improved. Signatures: Dispatcher [employer] [facility] Francis Mcintyre MD MD rn Roszak, Josh, PA PA jr8 Tomy Grady, RN RN ja1 Tanvir Alvarez, RN RN bp Corrections: (The following items were deleted from the chart) 16:49 15:39 Hospitalization Ordered by Prince Sherley KINNEY for Inpatient Admission. Preliminary ja1 diagnosis is Acute combined systolic (congestive) and diastolic (congestive) heart failure; Chronic obstructive pulmonary disease with (acute) exacerbation; Elevated white blood cell count. Bed requested for Telemetry/MedSurg (Inpatient). Status is Inpatient Admission. Condition is Fair. Problem is new. Symptoms have improved. jr8 18:31 16:49 11/01/2019 15:39 Hospitalization Ordered by Prince Sherley KINNEY for Inpatient bp Admission. Preliminary diagnosis is Acute combined systolic (congestive) and diastolic (congestive) heart failure; Chronic obstructive pulmonary disease with (acute) exacerbation; Elevated white blood cell count. Bed requested for Telemetry/MedSurg (Inpatient). Status is Inpatient Admission. Condition is Fair. Problem is new. Symptoms have improved. ja1
--- NOTE | 2019-11-01 15:39 | ER ---
Nurse's Notes [facility] Name: Amy Velasquez Age: 69 yrs Sex: Female : 1950 Arrival Date: 11/01/2019 Time: 14:10 Bed 4 Private MD: Diagnosis: Acute combined systolic (congestive) and diastolic (congestive) heart failure;Chronic obstructive pulmonary disease with (acute) exacerbation;Elevated white blood cell count Presentation: 10/31 14:10 Chief complaint: EMS states: SEVERE RESPIRATORY DISTRESS, SPO2 70 AT HOME. Coronavirus bp screen: At this time, the client does not indicate any symptoms associated with coronavirus-19. Ebola Screen: No symptoms or risks identified at this time. Initial Sepsis Screen: Does the patient meet any 2 criteria? RR > 20 per min. Altered Mental Status. No. Patient's initial sepsis screen is negative. Does the patient have a suspected source of infection? No. Patient's initial sepsis screen is negative. Risk Assessment: Do you want to hurt yourself or someone else? Patient reports no desire to harm self or others. Onset of symptoms is unknown. Care prior to arrival: Assisted ventilation, IV initiated. 22 GA, in the right hand. 14:10 Method Of Arrival: EMS: [facility] bp 14:10 Acuity: BHARTI 2 bp Triage Assessment: 14:22 General: Appears distressed, uncomfortable, obese, Behavior is cooperative, appropriate bp for age, agitated. Pain: Complains of pain in NONE. EENT: No deficits noted. Neuro: No deficits noted. Cardiovascular: Rhythm is sinus tachycardia. Respiratory: Reports shortness of breath at rest on exertion since YESTERDAY Onset: The symptoms/episode began/occurred yesterday, the patient has severe shortness of breath. GI: No signs and/or symptoms were reported involving the gastrointestinal system. : No signs and/or symptoms were reported regarding the genitourinary system. Derm: No deficits noted. Musculoskeletal: No deficits noted. Historical: - Allergies: 14:22 Morphine (rash, Itching); bp 14:22 Phenobarbital; bp 14:22 Cipro; bp 14:22 Amitriptyline; bp - Home Meds: 14:22 oxycodone-acetaminophen 10-325 mg Oral tab 1 tab every 6 hours for Pain [Active]; bp sertraline 50 mg Oral tab 3 tabs once daily [Active]; metoprolol tartrate 50 mg Oral tab 1 tab once daily [Active]; furosemide 20 mg Oral tab 1 tab once daily [Active]; - PMHx: 14:22 ADD/ADHD; Anxiety; Asthma; Atrial Fib; CANCER, SKIN; CHF; COPD; Degenerative disc bp disease; Hernia; Hypertension; - Immunization history:: Adult Immunizations unknown. - Social history:: Smoking status: Patient reports the use of cigarette tobacco products, unknown amount. Screenin:10 Abuse screen: Denies threats or abuse. Denies injuries from another. Nutritional bp screening: No deficits noted. Tuberculosis screening: No symptoms or risk factors identified. Fall Risk None identified. Assessment: 14:30 General: SEE TRIAGE NOTE. Cardiovascular: Rhythm is sinus tachycardia. Respiratory: bp Airway is patent Respiratory effort is labored, Onset: The symptoms/episode began/occurred yesterday. GI: No signs and/or symptoms were reported involving the gastrointestinal system. 15:25 Reassessment: PT REQUIRING REORIENTATION TO NOT REMOVE BIPAP. RT PAGED FOR FITMENT bp CHECK. Respiratory: Patient placed on BiPAP: Inspiratory Pressure: 14 Expiratory (EPAP) Pressure: 7 FiO2%: 30 Respiratory Rate: 14. Vital Signs: 14:10 BP 114 / 74; Pulse 118; Resp 32; Temp 97; Pulse Ox 99% on 15% CPAP; bp 14:36 BP 122 / 94; Pulse 110; Resp 14; Pulse Ox 100% ; bp 15:24 BP 126 / 81; Pulse 111; Resp 24; Pulse Ox 98% on 30% BiPAP; bp 17:14 BP 116 / 69; Pulse 100; Resp 18; Pulse Ox 100% ; bp ED Course: 14:10 Patient arrived in ED. bp 14:10 Patient has correct armband on for positive identification. Bed in low position. Call bp light in reach. Side rails up X2. monitor technician on. Pulse ox on. NIBP on. 14:13 Alan Alves PA is PHCP. jr8 14:13 Francis Mcintyre MD is Attending Physician. jr8 14:17 Triage completed. bp 14:22 Arm band placed on. EKG completed in triage. Results shown to MD. bp 14:35 Maintain EMS IV. Dressing intact. Good blood return noted. Site clean \T\ dry. Gauge \T\ bp site: 22G R HAND. 14:42 Tanvir Alvarez, RN is Primary Nurse. bp 15:38 Prince Lepe MD is Hospitalizing Provider. jr8 16:05 Inserted saline lock: 22 gauge in left antecubital area, using aseptic technique. bp 16:55 No provider procedures requiring assistance completed. Patient admitted, IV remains in bp place. 18:30 Song cath inserted, using sterile technique, 16 Fr., by ne, balloon inflated, to aa5 gravity drainage, urine specimen collected. returned cloudy urine. Patient tolerated poorly. Administered Medications: 14:30 Drug: Lasix 40 mg Route: IVP; Site: right hand; bp 14:53 Follow up: Response: No adverse reaction bp 16:05 Drug: Zosyn 3.375 grams Route: IVPB; Infused Over: 60 mins; Site: right hand; bp 16:56 Follow up: IV Status: Completed infusion; IV Intake: 100ml bp Intake: 16:56 IV: 100ml; Total: 100ml. bp Outcome: 15:39 Decision to Hospitalize by Provider. jr8 17:09 Admitted to Med/surg accompanied by tech, via stretcher, room 232, with oxygen, with bp chart, Report called to SHELDON KULKARNI 17:09 Condition: stable 17:09 Instructed on the need for admit. 18:31 Patient left the ED. bp Signatures: Yasmeen Gee, RN RN aa5 Alan Alves PA PA jr8 Tanvir Alvarez, RN RN bp Corrections: (The following items were deleted from the chart) 15:26 15:24 Pulse 111bpm; Resp 24bpm; Pulse Ox 98% 02 30% BiPAP; bp bp
[2019-11-01 15:50] LABS: Urine White Blood Cell Casts OK
[2019-11-01 15:51] LABS: Anisocytosis 1+; Blood Morphology Comment NOTED (NOT SEEN); Platelet Estimate ADEQ; Poikilocytosis 1+
--- NOTE | 2019-11-01 16:01 | P.HP ---
Certification for Inpatient Patient admitted to: Inpatient With expected LOS: >2 Midnights Patient will require the following post-hospital care: None Practitioner: I am a practitioner with admitting privileges, knowledge of patient current condition, hospital course, and medical plan of care. Services: Services provided to patient in accordance with Admission requirements found in Title 42 Section 412.3 of the Code of Federal Regulations Patient History Date of Service: 11/01/19 Reason for admission: CHF exacerbation History of Present Illness: 69-year-old female with history of chronic diastolic congestive heart failure, COPD, hypertension, hyperlipidemia, GERD, morbid obesity presents emergency department for worsening shortness of breath. EMS reports that when they arrived on scene her room air saturation was in the 70s. Patient was placed on CPAP and brought to the emergency department. En route to the hospital she received 40 mg of Lasix IV. Upon arrival to the emergency department see H was there over to BiPAP at 35% FiO2 which she is tolerating well. Patient received an additional 40 mg Lasix IV at this time. Patient reports that she has been feeling increasingly short of breath over the last few days. ABG within normal limits at this time. Patient also noted to have white blood cell count of 22. Patient with history of urinary tract infection with ESBL. Urine results pending at this time. Patient be admitted for further evaluation and management. When I saw the patient in the emergency department she was awake, alert, oriented x4. Patient was on BiPAP but was able to answer some simple questions. Patient does not appear septic at this time, blood pressure within normal limits. No fever noted. Allergies amitriptyline HCl [From Elavil] Allergy (Intermediate, Verified 06/06/18 22:46) Nausea/Vomiting ciprofloxacin [From Cipro] Allergy (Intermediate, Verified 06/06/18 22:46) Rash metronidazole Allergy (Verified 06/06/18 22:46) Itching morphine Allergy (Verified 06/06/18 22:46) Itching phenobarbital Allergy (Verified 06/06/18 22:46) Itching/Hives/Rash Home Medications: Albuterol Inhaler [Ventolin Inhaler*] 2 puff IH Q4H PRN 11/12/17 Aspirin 81 mg PO DAILY 11/12/17 Esomeprazole Mag Trihydrate [Nexium] 1 cap PO DAILY 11/12/17 Gabapentin [Neurontin*] 400 mg PO BID 11/12/17 Oxycodone HCl/Acetaminophen [Endocet 10-325 mg Tablet] 1 each PO Q4H 11/12/17 Sertraline [Zoloft*] 200 mg PO DAILY 11/12/17 lisinopriL [Lisinopril] 40 mg PO BID 01/17/18 Hydroxyzine HCl [Atarax] 20 mg PO BID PRN 06/06/18 Mupirocin Oint [Bactroban 2% Ointment*] 1 appl TOP BID #1 tube 06/11/18 Fluticasone/Salmeterol [Advair 250-50 Diskus] 2 puff IH BID 08/14/18 Furosemide [Lasix*] 40 mg PO DAILY 08/14/18 Metoprolol Tartrate [Lopressor*] 50 mg PO BID 08/14/18 Amox/Clavulanate [Augmentin 500-125 mg Tab*] 500 mg PO BID #14 tab 08/15/18 - Past Medical/Surgical History Diabetic: No -: Hypertension -: COPD -: Chronic diastolic congestive heart failure -: GERD -: Morbid obesity -: Anxiety -: DDD, DJD lumbar spine, chronic pain -: skin cancer -: History of Liver tumor -: Chronic back pain-Pain management-Dr. Herron -: Depression with anxiety -: Hernia, UTI: ESBL -: Left ovarian tumor removal -: Hysterectomy -: Hernia Repair -: Lymphoma Left leg removed -: Melanoma removed from back Psychosocial/ Personal History: , Disabled, 5 children - Family History Father -: Heart disease, Hypertension, Diabetes, Cancer, Liver disease Mother -: Heart disease, Hypertension, Diabetes, Cancer Sister -: Heart disease, Hypertension, Diabetes Brother -: Hypertension - Social History Smoking Status: Unknown if ever smoked Alcohol use: No CD- Drugs: No Caffeine use: Yes Place of Residence: Home Review of Systems Respiratory: Cough, Shortness of Breath Cardiovascular: Edema Physical Examination - Physical Exam General: Alert, In no apparent distress, Oriented x3, Obese HEENT: Atraumatic, Normocephalic Neck: Supple Respiratory: Diminished (Bilaterally) Cardiovascular: Regular rate/rhythm, Normal S1 S2, Edema (Bilateral lower extre mity edema) Gastrointestinal: Normal bowel sounds, Soft and benign Neurological: Normal speech, Normal strength at 5/5 x4 extr, Normal tone - Studies Laboratory Data (last 24 hrs) 11/01/19 14:35: PT 14.6 H, INR 1.24 11/01/19 14:35: WBC 22.4 H*, Hgb 13.9, Hct 43.0, Plt Count 175 11/01/19 14:35: Sodium 143, Potassium 4.0, BUN 19 H, Creatinine 1.34 H, Glucose 158 H, Magnesium 1.7 L D, Total Bilirubin 0.9, AST 23, ALT 17, Alkaline Phosphatase 74 Assessment and Plan - Plan Assessment Acute respiratory failure with hypoxia secondary to Acute on chronic diastolic congestive heart failure with volume overload Leukocytosis suspect either early pneumonia or urinary tract infection COPD Hypertension GERD Obesity Plan Acute respiratory failure with hypoxia secondary to Acute on chronic diastolic congestive heart failure with volume overload: Cardiology and pulmonology consult in place. Will continue with IV Lasix for diuresis 40 mg q. 8. Patient currently on BiPAP, respiratory therapy consult in place, will continue the BiPAP at this time. Patient remained on telemetry throughout this hospitalization. DVT prophylaxis with Lovenox 40 mg subcutaneous once daily. Leukocytosis suspect either early pneumonia or urinary tract infection: Blood cultures, urine cultures obtained. Chest x-ray shows mild overload pattern without focal pneumonia findings. Patient with history of ESBL in the urine. Obtaining urine specimen now. Will follow up on culture results. Will start patient on Levaquin at this time. COPD: Patient has history of COPD, room air saturations today at home were in the 70s but this is more likely related to acute CHF exacerbation. Will provide patient with inhalers for as needed use during hospitalization and steroids. Hypertension: Obtain and continue patient's home medications. GERD: Obtain and continue patient's home medications. Obesity: Address lifestyle changes. Discharge Plan: Home Plan to discharge in: Greater than 2 days - Advance Directives Does patient have a Living Will: No Does patient have a Durable POA for Healthcare: No - Code Status/Comfort Care Code Status Assessed: Yes (Patient is full code) Critical Care: No Time Spent Managing Pts Care (In Minutes): 55
[2019-11-01] MEDS ORDERED: PIPER/TAZO/NS 3.375gm 3.375 GM/100 ML BAG ONE (16:29)
[2019-11-01] MEDS ORDERED: Levofloxacin500mg IV 500 MG/100 ML BAG IV SCH (17:08)
[2019-11-01] MEDS ORDERED: ALBUTEROL INHALER 60 PUFF/8 GM IH PRN (17:08)
[2019-11-01] MEDS: FUROSEMIDE 40 MG/4 ML VIAL IV SCH (17:08)
[2019-11-01 19:29] LABS: Urine Appearance TURBID; Urine Bilirubin NEGATIVE (NEG); Urine Blood 2+ (NEG); Urine Color YELLOW; Urine Glucose NEGATIVE (NEG); Urine Protein 2+ (NEG); Urine Urobilinogen 0.2 mg/dL (0.2-1.0); Urine pH 5.5 (5.0-7.0)
[2019-11-01 20:18] LABS: Urine Microscopic Reflex NO UMIC
[2019-11-01 20:20] LABS: Urine Bacteria >50 /HPF (<20); Urine Culture Reflex Order REFLEXED; Urine RBC >50 /HPF (NONE SEEN)
[2019-11-01] MEDS: ONDANSETRON 4 MG/2 ML VIAL IV PRN (20:31)
[2019-11-01] MEDS: DULERA 100/5 (MOMETASONE/FORMOTEROL) INHALER IH SCH (21:00)
[2019-11-01] MEDS ORDERED: AZITHROMYCIN IV 500 MG in NA CHLORIDE 0.9% 250 ML IVPB SCH (22:00)
[2019-11-01] MEDS ORDERED: CEFTRIAXONE 1 GM/NS 50 ML 1 GM/50 ML BAG IV SCH (22:00)
[2019-11-01] MEDS ORDERED: AZITHROMYCIN 500 MG INJ IVPB ONE (22:45)
[2019-11-01] MEDS ORDERED: NA CHLORIDE 0.9% 250 ML ONE (22:52)
[2019-11-01] MEDS: CEFTRIAXONE/SWI 1gm 1 GM/10 ML SYR IV SCH (22:56)
[2019-11-02] MEDS: FUROSEMIDE 40 MG/4 ML VIAL IV SCH ×4 (00:33→21:00)
[2019-11-02 04:40] LABS: Absolute Lymphocytes (CBC) 1.4 K/uL (0.7-4.9); Basophils % 0.4 % (0-1.3); Hematocrit 40.7 % (36.0-45.0); MPV 8.6 fL (7.6-11.3); RBC Red Blood Cell Count 4.69 M/uL (3.86-4.86)
[2019-11-02 04:49] LABS: Potassium 4.3 mmol/L (3.5-5.1)
[2019-11-02] MEDS: DULERA 100/5 (MOMETASONE/FORMOTEROL) INHALER IH SCH ×2 (09:00→20:59)
[2019-11-02] MEDS: ENOXAPARIN 40 MG/0.4 ML SQ SCH (10:06)
--- NOTE | 2019-11-02 12:58 | P.CNS ---
Date of Consult: 11/02/19 Chief Complaint: CHF exacerbation History of Present Illness: Patient is 69 years of age currently on BiPAP multiple medical problems diastolic heart failure COPD hypertension presented with worsening shortness of breath low oxygen saturation was admitted started on Lasix currently on BiPAP what gases satisfactory Allergies amitriptyline HCl [From Elavil] Allergy (Intermediate, Verified 11/01/19 19:29) Nausea/Vomiting ciprofloxacin [From Cipro] Allergy (Intermediate, Verified 11/01/19 19:29) Rash metronidazole Allergy (Verified 11/01/19 19:29) Itching morphine Allergy (Verified 11/01/19 19:29) Itching phenobarbital Allergy (Verified 11/01/19 19:29) Itching/Hives/Rash - Past Medical/Surgical History Diabetic: No -: Hypertension -: COPD -: Chronic diastolic congestive heart failure -: GERD -: Morbid obesity -: Anxiety -: DDD, DJD lumbar spine, chronic pain -: skin cancer -: History of Liver tumor -: Chronic back pain-Pain management-Dr. Herron -: Depression with anxiety -: Hernia, UTI: ESBL -: Left ovarian tumor removal -: Hysterectomy -: Hernia Repair -: Lymphoma Left leg removed -: Melanoma removed from back Psychosocial/ Personal History: , Disabled, 5 children - Family History Father Medical History: Heart disease, Hypertension, Diabetes, Cancer, Liver disease Mother Medical History: Heart disease, Hypertension, Diabetes, Cancer Sister Medical History: Heart disease, Hypertension, Diabetes Brother Medical History: Hypertension - Social History Smoking Status: Current every day smoker Alcohol use: No CD- Drugs: No Caffeine use: Yes Place of Residence: Home Review of Systems is unable to be obtained Physical Examination Temp Pulse Resp BP Pulse Ox 97.0 F 98 H 17 123/53 L 96 11/02/19 04:00 11/02/19 04:00 11/02/19 04:00 11/02/19 04:00 11/02/19 04:00 General: Alert Neck: Supple Respiratory: Clear to auscultation bilaterally Cardiovascular: No edema, Normal S1 S2 Gastrointestinal: Normal bowel sounds, Soft and benign Musculoskeletal: No clubbing Integumentary: No rashes Neurological: Normal gait Laboratory Data (last 24 hrs) 11/01/19 14:35: PT 14.6 H, INR 1.24 11/01/19 14:35: WBC 22.4 H*, Hgb 13.9, Hct 43.0, Plt Count 175 11/01/19 14:35: Sodium 143, Potassium 4.0, BUN 19 H, Creatinine 1.34 H, Glucose 158 H, Magnesium 1.7 L D, Total Bilirubin 0.9, AST 23, ALT 17, Alkaline Phospha tase 74 - Problems (1) Acute on chronic diastolic CHF (congestive heart failure) Onset Date: 07/26/17 Current Visit: No Status: Acute Plan: Patient is 69 years of age admitted with worsening dyspnea renal function is worse blood gases satisfactory white count is elevated chest x-ray shows minimal ILD cultures are pending is a history of ESBL change advisor to nasal cannula oxygen
--- NOTE | 2019-11-02 14:06 | P.PN ---
Subjective Date of Service: 11/02/19 Patient is still lethargic and short of breath. Patient is volume overloaded. Will need to continue to diurese patient aggressively. At the same time we need to monitor renal function closely. Continue with current plan of care at this time. Review of Systems 10-point ROS is otherwise unremarkable Physical Examination - Vital Signs Temperature: 97.0 F Blood Pressure: 123/53 Pulse: 98 Respirations: 17 Pulse Ox (%): 96 - Physical Exam General: Alert, In no apparent distress, Oriented x3 Respiratory: Crackles/rales Cardiovascular: Regular rate/rhythm, Normal S1 S2, Systolic murmur Gastrointestinal: Normal bowel sounds, Soft and benign, Non-distended, No tenderness Musculoskeletal: No tenderness Integumentary: No rashes Neurological: Normal tone, Sensation intact, Cranial nerves 3-12 intact - Studies Laboratory Data (last 24 hrs) 11/01/19 14:35: PT 14.6 H, INR 1.24 11/01/19 14:35: WBC 22.4 H*, Hgb 13.9, Hct 43.0, Plt Count 175 11/01/19 14:35: Sodium 143, Potassium 4.0, BUN 19 H, Creatinine 1.34 H, Glucose 158 H, Magnesium 1.7 L D, Total Bilirubin 0.9, AST 23, ALT 17, Alkaline Phosphatase 74 Medications List Reviewed: Yes Assessment & Plan - Problems (Diagnosis) (1) Obesity hypoventilation syndrome Current Visit: Yes Status: Acute (2) ARF (acute renal failure) Onset Date: 06/20/15 Current Visit: No Status: Acute Qualifiers: (3) Acute on chronic diastolic CHF (congestive heart failure) Onset Date: 07/26/17 Current Visit: No Status: Acute (4) Atrial fibrillation, new onset Onset Date: 12/18/16 Current Visit: No Status: Acute (5) COPD with acute exacerbation Onset Date: 01/20/18 Current Visit: No Status: Acute (6) Dyspnea Onset Date: 12/18/16 Current Visit: No Status: Acute Qualifiers: Dyspnea type: shortness of breath Qualified Code(s): R06.02 - Shortness of breath; R06.00 - Dyspnea, unspecified; R06.01 - Orthopnea (7) Renal insufficiency Current Visit: No Status: Acute (8) Atrial fibrillation Onset Date: 11/13/17 Current Visit: No Status: Chronic Qualifiers: (9) Depression with anxiety Onset Date: 11/13/17 Current Visit: No Status: Chronic (10) Hypertension Onset Date: 03/27/16 Current Visit: No Status: Chronic Qualifiers: Hypertension type: essential hypertension (11) Morbid obesity with BMI of 60.0-69.9, adult Current Visit: No Status: Chronic (12) UTI (urinary tract infection) Current Visit: Yes Status: Acute - Plan 1. Echocardiogram needs to be repeated. Last one was done in 2018 2. Monitor renal function closely 3. Cardiology consultation appreciated 4. Aggressive diuresis 5. Strict I's and O's 6. Repeat CXR 7. Daily weights 8. Physical therapy evaluation 9. Continue with IV antibiotic therapy for UTIs 10. CPAP at night - Advance Directives Does patient have a Living Will: No Does patient have a Durable POA for Healthcare: No
[2019-11-02 21:07] VITALS: BMI 59.1
[2019-11-02] MEDS: ONDANSETRON 4 MG/2 ML VIAL IV PRN (21:15)
[2019-11-02] MEDS: CEFTRIAXONE/SWI 1gm 1 GM/10 ML SYR IV SCH (22:41)
[2019-11-03 05:30] LABS: Absolute Lymphocytes (CBC) 1.4 K/uL (0.7-4.9); Basophils % 0.4 % (0-1.3); Hematocrit 39.1 % (36.0-45.0); Lymphocytes % 8.9 % (15.3-44.8); RBC Red Blood Cell Count 4.49 M/uL (3.86-4.86)
[2019-11-03 05:44] LABS: Magnesium 1.8 mg/dL (1.8-2.4)
[2019-11-03] MEDS ORDERED: MAGNESIUM SULFATE 1 gm IVPB 1 GM/100 ML BAG IV ONE (08:00)
[2019-11-03] MEDS: ENOXAPARIN 40 MG/0.4 ML SQ SCH (08:48)
[2019-11-03] MEDS: DULERA 100/5 (MOMETASONE/FORMOTEROL) INHALER IH SCH ×2 (08:48→20:43)
[2019-11-03] MEDS: OXYCODONE HCL 5 MG TAB PO PRN ×2 (08:48→15:45)
[2019-11-03] MEDS: FUROSEMIDE 40 MG/4 ML VIAL IV SCH ×2 (08:49→20:43)
--- NOTE | 2019-11-03 08:58 | P.PN ---
Subjective Date of Service: 11/03/19 Chief Complaint: Sepsis Subjective: Improving (Patient is improving shortness of breath is a little better blood culture shows gram-negative rods white count is improving) Patient is improving shortness of breath is a little better blood culture shows gram-negative rods white count is improving no history of sleep apnea and patient does not require oxygen at home no prior history of obstructive airways disease Review of Systems General: Weakness Respiratory: Shortness of Breath Physical Examination - Vital Signs Temperature: 98.7 F Blood Pressure: 114/56 Pulse: 81 Respirations: 18 Pulse Ox (%): 98 - Physical Exam General: Alert, Oriented x3 Respiratory: Clear to auscultation bilaterally, Diminished Cardiovascular: No edema, Normal S1 S2 - Studies Medications List Reviewed: Yes Assessment & Plan - Problems (Diagnosis) (1) Acute on chronic diastolic CHF (congestive heart failure) Onset Date: 07/26/17 Current Visit: No Status: Acute Plan: No change continue with present treatment (2) Sepsis Current Visit: Yes Status: Acute Plan: Patient's adult blood cultures are positive for gram-negative traci stage a history of ESBL infection change to meropenem most likely she has ESBL in the blood renal function is little bit better pro calcitonin level is mildly elevated vital signs stable patient is on a bronchodilator may have obese the related obstructive airways disease continue with the inhaler change her over to meropenem high risk for obstructive sleep apnea currently patient has had a sleep study done will have to review the Qualifiers: Sepsis type: sepsis due to unspecified organism
[2019-11-03] MEDS ORDERED: Meropenem 1000 MG/VIAL IV SCH (09:00)
[2019-11-03] MEDS: Meropenem 1,000 MG in NA CHLORIDE 0.9% 100 ML IV SCH ×2 (09:23→20:43)
[2019-11-03] MEDS ORDERED: ALBUMIN HUMAN 25% 100 ML IV ONE (11:33)
--- NOTE | 2019-11-03 21:54 | PN ---
Date of Progress Note: 11/03/2019 Subjective: Ms. Velasquez came in yesterday with [id number] systolic congestive heart failure . Subjectively this morning, she is feeling much better. Physical Examination: Vital Signs: Stable. She is in normal rhythm. Chest: Reveals no rales. Extremities: Revealed mild edema. Cardiac: Revealed regular rhythm and rate without any murmurs, gallops, or rubs. Diagnostic Data: Pending. Impression And Plan: Acute exacerbation of systolic congestive heart failure, improving. Continue p resent regimen. Consider discharge in the next day or two. We will see her in the office in the nex t couple weeks. No change in her medical regimen at this point. TASNEEM/LUIS MIGUEL Voice ID: [id number] Report ID: [id number]
[2019-11-04 04:09] LABS: Absolute Lymphocytes (CBC) 1.3 K/uL (0.7-4.9); Basophils % 0.3 % (0-1.3); Hematocrit 36.6 % (36.0-45.0); MPV 8.5 fL (7.6-11.3); RBC Red Blood Cell Count 4.22 M/uL (3.86-4.86)
[2019-11-04 04:17] LABS: Magnesium 1.7 mg/dL (1.8-2.4); Potassium 3.2 mmol/L (3.5-5.1)
[2019-11-04] MEDS: HYDROMORPHONE HCL 0.5 MG/0.5 ML INJ IV PRN (04:19)
[2019-11-04] MEDS ORDERED: MAGNESIUM SULFATE 1 gm IVPB 1 GM/100 ML BAG IV ONE (06:00)
[2019-11-04] MEDS ORDERED: POTASSIUM 25 MEQ EFFERV TAB PO ONE (06:00)
[2019-11-04] MEDS: ENOXAPARIN 40 MG/0.4 ML SQ SCH (08:49)
[2019-11-04] MEDS: DULERA 100/5 (MOMETASONE/FORMOTEROL) INHALER IH SCH ×2 (08:49→21:39)
[2019-11-04] MEDS: HYDROCODONE/APAP 10/325 TAB PO PRN (09:27)
[2019-11-04] MEDS: Meropenem 1,000 MG in NA CHLORIDE 0.9% 100 ML IV SCH (09:56)
[2019-11-04] MEDS: FUROSEMIDE 40 MG/4 ML VIAL IV SCH ×2 (09:57→21:39)
[2019-11-04] MEDS: PIPER/TAZO/NS 3.375gm 3.375 GM/100 ML BAG IVPB SCH (16:51)
[2019-11-05] MEDS ORDERED: POTASSIUM 25 MEQ EFFERV TAB PO ONE (00:04)
[2019-11-05] MEDS: PIPER/TAZO/NS 3.375gm 3.375 GM/100 ML BAG IVPB SCH ×3 (01:19→17:33)
[2019-11-05] MEDS: HYDROCODONE/APAP 10/325 TAB PO PRN (06:17)
[2019-11-05 06:40] LABS: Magnesium 1.8 mg/dL (1.8-2.4); Potassium 4.1 mmol/L (3.5-5.1)
[2019-11-05] MEDS: DULERA 100/5 (MOMETASONE/FORMOTEROL) INHALER IH SCH ×2 (08:14→21:46)
[2019-11-05] MEDS: FUROSEMIDE 40 MG/4 ML VIAL IV SCH (08:15)
[2019-11-05] MEDS: ENOXAPARIN 40 MG/0.4 ML SQ SCH (08:16)
[2019-11-05] MEDS ORDERED: MAGNESIUM SULFATE 1 gm IVPB 1 GM/100 ML BAG IV ONE (09:00)
[2019-11-05] MEDS: HYDROMORPHONE HCL 0.5 MG/0.5 ML INJ IV PRN ×4 (09:46→21:48)
[2019-11-05] MEDS ORDERED: clonazePAM 1 MG TAB PO PRN (12:35)
--- NOTE | 2019-11-05 12:38 | P.PN ---
Subjective Date of Service: 11/03/19 PATIENT DOING A LITTLE BIT BETTER. STILL NOT REALLY DOING MUCH WITH THERAPY. ENCOURAGE HER TO GET OUT OF BED AND AMBULATE. OTHERWISE NO NEW COMPLAINTS. Review of Systems 10-point ROS is otherwise unremarkable Physical Examination - Vital Signs Temperature: 97.6 F Blood Pressure: 121/53 Pulse: 87 Respirations: 19 Pulse Ox (%): 95 - Physical Exam General: Alert, In no apparent distress, Oriented x3 Respiratory: Crackles/rales Cardiovascular: Regular rate/rhythm, Normal S1 S2, No murmurs Gastrointestinal: Normal bowel sounds, Soft and benign, Non-distended, No tenderness Musculoskeletal: No clubbing, Swelling Neurological: Normal speech, Normal tone, Normal affect Lymphatics: No axilla or inguinal lymphadenopathy - Studies Medications List Reviewed: Yes Assessment & Plan - Problems (Diagnosis) (1) Obesity hypoventilation syndrome Current Visit: Yes Status: Acute (2) ARF (acute renal failure) Onset Date: 06/20/15 Current Visit: No Status: Acute Qualifiers: (3) Acute on chronic diastolic CHF (congestive heart failure) Onset Date: 07/26/17 Current Visit: No Status: Acute (4) Atrial fibrillation, new onset Onset Date: 12/18/16 Current Visit: No Status: Acute (5) COPD with acute exacerbation Onset Date: 01/20/18 Current Visit: No Status: Acute (6) Dyspnea Onset Date: 12/18/16 Current Visit: No Status: Acute Qualifiers: Dyspnea type: shortness of breath Qualified Code(s): R06.02 - Shortness of breath; R06.00 - Dyspnea, unspecified; R06.01 - Orthopnea (7) Renal insufficiency Current Visit: No Status: Acute (8) Atrial fibrillation Onset Date: 11/13/17 Current Visit: No Status: Chronic Qualifiers: (9) Depression with anxiety Onset Date: 11/13/17 Current Visit: No Status: Chronic (10) Hypertension Onset Date: 03/27/16 Current Visit: No Status: Chronic Qualifiers: Hypertension type: essential hypertension Qualified Code(s): I10 - Essential (primary) hypertension (11) Morbid obesity with BMI of 60.0-69.9, adult Current Visit: No Status: Chronic (12) UTI (urinary tract infection) Current Visit: Yes Status: Acute - Plan 1. Echocardiogram needs to be repeated. Last one was done in 2018 2. Monitor renal function closely 3. Cardiology consultation appreciated 4. Aggressive diuresis 5. Strict I's and O's 6. Repeat CXR 7. Daily weights 8. Physical therapy evaluation 9. Continue with IV antibiotic therapy for UTIs 10. CPAP at night - Advance Directives Does patient have a Living Will: No Does patient have a Durable POA for Healthcare: No
--- NOTE | 2019-11-05 12:39 | P.PN ---
Subjective Date of Service: 11/04/19 PATIENT WAS ABLE TO STAND TODAY AND GO TO THE BEDSIDE COMMODE. SHE IS DIURESING AND RENAL FUNCTION HAS IMPROVED. CARDIOLOGY RECOMMENDED 80 MG T.I.D. BUT WE HAVE EACH DECREASED TO 40 Q 12. OTHERWISE, PATIENT IS POSSIBLY STABLE FOR DISCHARGE OVER THE NEXT 48 HR. ENCOURAGE GETTING OUT OF BED AND AMBULATE AND HOPEFULLY WE CAN GET HER HOME IN THE NEXT COUPLE OF DAYS. Physical Examination - Vital Signs Temperature: 97.6 F Blood Pressure: 121/53 Pulse: 87 Respirations: 19 Pulse Ox (%): 95 - Studies Medications List Reviewed: Yes Assessment & Plan - Problems (Diagnosis) (1) Obesity hypoventilation syndrome Status: Acute (2) ARF (acute renal failure) Onset Date: 06/20/15 Status: Acute Qualifiers: (3) Acute on chronic diastolic CHF (congestive heart failure) Onset Date: 07/26/17 Status: Acute (4) Atrial fibrillation, new onset Onset Date: 12/18/16 Status: Acute (5) COPD with acute exacerbation Onset Date: 01/20/18 Status: Acute (6) Dyspnea Onset Date: 12/18/16 Status: Acute Qualifiers: Dyspnea type: shortness of breath Qualified Code(s): R06.02 - Shortness of breath; R06.00 - Dyspnea, unspecified; R06.01 - Orthopnea (7) Renal insufficiency Status: Acute (8) Atrial fibrillation Onset Date: 11/13/17 Status: Chronic Qualifiers: (9) Depression with anxiety Onset Date: 11/13/17 Status: Chronic (10) Hypertension Onset Date: 03/27/16 Status: Chronic Qualifiers: Hypertension type: essential hypertension Qualified Code(s): I10 - Essential (primary) hypertension (11) Morbid obesity with BMI of 60.0-69.9, adult Status: Chronic (12) UTI (urinary tract infection) Status: Acute - Plan 1. Echocardiogram Diastolic dysfunction 2. Monitor renal function closely 3. Cardiology consultation appreciated 4. Continue with Diuresing 5. Strict I's and O's 6. Out of bed and ambulate with physical therapy 7. Daily weights 8. May need to consider a Assisted Facility placement 9. Continue with IV antibiotic therapy for UTIs 10. CPAP at night Discharge Plan: Home Plan to discharge in: Greater than 2 days - Advance Directives Does patient have a Living Will: No Does patient have a Durable POA for Healthcare: No - Code Status/Comfort Care Code Status Assessed: Yes Code Status: Full Code Critical Care: No Time Spent Managing PTS Care (In Minutes): 30
[2019-11-05] MEDS ORDERED: FLUCONAZOLE 200 MG PO SCH (12:45)
[2019-11-05] MEDS ORDERED: FUROSEMIDE 40 MG/4 ML VIAL IV ONE (14:00)
[2019-11-05] MEDS: FLUCONAZOLE 100 MG TAB PO SCH (15:03)
[2019-11-05] MEDS: FUROSEMIDE 40 MG TABLET PO SCH (17:35)
[2019-11-05] MEDS: hydrOXYzine HCL 25 MG TAB PO SCH (21:47)
[2019-11-06] MEDS: PIPER/TAZO/NS 3.375gm 3.375 GM/100 ML BAG IVPB SCH ×2 (01:11→09:17)
[2019-11-06] MEDS ORDERED: METOPROLOL XL 50 MG TAB PO SCH (09:00)
[2019-11-06] MEDS ORDERED: PANTOPRAZOLE 40MG TABLET PO SCH (09:00)
[2019-11-06] MEDS ORDERED: SERTRALINE HCL 100 MG TAB PO SCH (09:00)
[2019-11-06] MEDS ORDERED: HOME MED 1 EA UNK (Esomeprazole Magnesium [Esomeprazole Magnesium] 40 MG) PO SCH (09:00)
[2019-11-06 09:09] VITALS: O2SAT 96
[2019-11-06] MEDS: FUROSEMIDE 40 MG TABLET PO SCH (09:15)
[2019-11-06] MEDS: hydrOXYzine HCL 25 MG TAB PO SCH (09:15)
[2019-11-06] MEDS: ENOXAPARIN 40 MG/0.4 ML SQ SCH (09:16)
[2019-11-06] MEDS: FLUCONAZOLE 100 MG TAB PO SCH (09:16)
[2019-11-06] MEDS: DULERA 100/5 (MOMETASONE/FORMOTEROL) INHALER IH SCH (09:17)
[2019-11-06] MEDS: HYDROMORPHONE HCL 0.5 MG/0.5 ML INJ IV PRN (11:16)
[2019-11-06] MEDS: ONDANSETRON 4 MG/2 ML VIAL IV PRN (13:40)
[2019-11-06] MEDS: HYDROCODONE/APAP 10/325 TAB PO PRN (13:45)
[2019-11-10 13:31] VITALS: BP 121/53; TEMP 97.6
--- NOTE | 2019-11-10 13:37 | P.PN ---
Subjective Date of Service: 11/05/19 Patient is doing much better. Anticipate discharge in the morning. Review of Systems 10-point ROS is otherwise unremarkable Physical Examination - Vital Signs Temperature: 97.6 F Blood Pressure: 121/53 Pulse: 87 Respirations: 19 Pulse Ox (%): 95 - Physical Exam General: Alert, In no apparent distress, Oriented x3 Respiratory: Diminished, Crackles/rales Cardiovascular: Regular rate/rhythm, Normal S1 S2, No murmurs Gastrointestinal: Normal bowel sounds, Soft and benign, Non-distended, No tenderness Musculoskeletal: No clubbing, Swelling - Studies Medications List Reviewed: Yes Assessment & Plan - Problems (Diagnosis) (1) Obesity hypoventilation syndrome Status: Acute (2) ARF (acute renal failure) Onset Date: 06/20/15 Status: Acute Qualifiers: (3) Acute on chronic diastolic CHF (congestive heart failure) Onset Date: 07/26/17 Status: Acute (4) Atrial fibrillation, new onset Onset Date: 12/18/16 Status: Acute (5) COPD with acute exacerbation Onset Date: 01/20/18 Status: Acute (6) Dyspnea Onset Date: 12/18/16 Status: Acute Qualifiers: Dyspnea type: shortness of breath Qualified Code(s): R06.02 - Shortness of breath; R06.00 - Dyspnea, unspecified; R06.01 - Orthopnea (7) Renal insufficiency Status: Acute (8) Atrial fibrillation Onset Date: 11/13/17 Status: Chronic Qualifiers: (9) Depression with anxiety Onset Date: 11/13/17 Status: Chronic (10) Hypertension Onset Date: 03/27/16 Status: Chronic Qualifiers: Hypertension type: essential hypertension Qualified Code(s): I10 - Essential (primary) hypertension (11) Morbid obesity with BMI of 60.0-69.9, adult Status: Chronic (12) UTI (urinary tract infection) Status: Acute - Plan 1. Patient with diastolic dysfunction. Continue diuresis. Adjusted per pulmonary. Anticipate discharge home in the next 24-48 hours. 2. Monitor renal function closely 3. Cardiology consultation appreciated 4. Continue with Diuresing 5. Strict I's and O's 6. Out of bed and ambulate with physical therapy 7. Daily weights 8. GI/DVT prophylaxis Discharge Plan: Home Plan to discharge in: Greater than 2 days - Advance Directives Does patient have a Living Will: No Does patient have a Durable POA for Healthcare: No - Code Status/Comfort Care Code Status: Full Code Critical Care: No Time Spent Managing PTS Care (In Minutes): 30
--- NOTE | 2019-11-10 13:39 | P.DS ---
Discharge Date: 11/06/19 Disposition: ROUTINE DISCHARGE Discharge Condition: GOOD Reason for Admission: Sepsis Consultations: Pulmonary consultation - Problems (1) Obesity hypoventilation syndrome Status: Acute (2) ARF (acute renal failure) Onset Date: 06/20/15 Status: Acute Qualifiers: (3) Acute on chronic diastolic CHF (congestive heart failure) Onset Date: 07/26/17 Status: Acute (4) Atrial fibrillation, new onset Onset Date: 12/18/16 Status: Acute (5) COPD with acute exacerbation Onset Date: 01/20/18 Status: Acute (6) Dyspnea Onset Date: 12/18/16 Status: Acute Qualifiers: Dyspnea type: shortness of breath Qualified Code(s): R06.02 - Shortness of breath; R06.00 - Dyspnea, unspecified; R06.01 - Orthopnea (7) Renal insufficiency Status: Acute (8) Atrial fibrillation Onset Date: 11/13/17 Status: Chronic Qualifiers: (9) Depression with anxiety Onset Date: 11/13/17 Status: Chronic (10) Hypertension Onset Date: 03/27/16 Status: Chronic Qualifiers: Hypertension type: essential hypertension Qualified Code(s): I10 - Essential (primary) hypertension (11) Morbid obesity with BMI of 60.0-69.9, adult Status: Chronic (12) UTI (urinary tract infection) Status: Acute Brief History of Present Illness: Patient is a 69-year-old female who came in with shortness of breath and volume overload. She was severely edematous as she was admitted for diuresis. Hospital Course: Patient was aggressively diuresed. She worked with physical therapy. She is doing much better. At this time patient is stable for discharge. Vital Signs/Physical Exam: Temp Pulse Resp BP Pulse Ox 97.6 F 87 19 121/53 L 95 11/10/19 13:37 11/10/19 13:37 11/10/19 13:37 11/10/19 13:37 11/10/19 13:37 General: Alert, In no apparent distress, Oriented x3 Laboratory Data at Discharge: WBC 10.6 K/uL (4.3-10.9) D 11/04/19 03:54 Hgb 11.8 g/dL (12.0-15.0) L 11/04/19 03:54 Hct 36.6 % (36.0-45.0) 11/04/19 03:54 Plt Count 175 K/uL (152-406) 11/04/19 03:54 PT 14.6 SECONDS (9.5-12.5) H 11/01/19 14:35 INR 1.24 11/01/19 14:35 Sodium 142 mmol/L (136-145) 11/05/19 05:57 Potassium 4.1 mmol/L (3.5-5.1) 11/05/19 05:57 BUN 26 mg/dL (7-18) H 11/05/19 05:57 Creatinine 0.94 mg/dL (0.55-1.3) 11/05/19 05:57 Glucose 97 mg/dL (74-106) 11/05/19 05:57 Magnesium 1.8 mg/dL (1.8-2.4) 11/05/19 05:57 Total Bilirubin 0.9 mg/dL (0.2-1.0) 11/01/19 14:35 AST 23 U/L (15-37) 11/01/19 14:35 ALT 17 U/L (12-78) 11/01/19 14:35 Alkaline Phosphatase 74 U/L (45-117) 11/01/19 14:35 Home Medications: Esomeprazole Magnesium 40 mg PO DAILY 11/03/19 Fluconazole 200 mg PO SEECOM 11/03/19 Furosemide [Lasix*] 40 mg PO BIDL 11/03/19 Lisinopril [Zestril] 40 mg PO DAILY 11/03/19 Metoprolol Succinate [Toprol Xl*] 50 mg PO DAILY 11/03/19 Nitrofuran Macro [Macrobid*] 1 tab PO BID 11/03/19 Sertraline HCl 2 tab PO DAILY 11/03/19 clonazePAM [Clonazepam] 1 mg PO BIDP PRN 11/03/19 hydrOXYzine pamoate [Hydroxyzine Pamoate] 25 mg PO BID 11/03/19 Metolazone [Zaroxolyn] 5 mg PO MO,FR #10 tablet 11/06/19 Pantoprazole [Protonix Tab*] 40 mg PO DAILY #30 tab 11/06/19 Potassium Chloride [K-Dur] 10 meq PO DAILY #30 tab.er.prt 08/14/20 New Medications: Potassium Chloride [K-Dur] 10 meq PO DAILY #30 tab.er.prt Pantoprazole [Protonix Tab*] 40 mg PO DAILY #30 tab Metolazone [Zaroxolyn] 5 mg PO MO,FR #10 tablet Patient Discharge Instructions: OK TO DC IV AND DC HOME. FOLLOW-UP WITH PRIMARY CARE PROVIDER IN 1-2 WEEKS. FOLLOW-UP WITH CARDIOLOGY IN 1-2 WEEKS. FOLLOW-UP WITH BARIATRIC SURGERY IN 1-2 WEEKS. RETURN TO THE ER IF symptoms worsen. CALL or TEXT DR. KIRBY AT [phone] IF ANY QUESTIONS REGARDING HOSPITAL STAY. PLEASE CALL THE FLOOR AT [phone] IF ANY MEDICATION OR NURSING QUESTIONS. Diet: Restrict calorie to 1500kcal/day Activity: Fall precautions Followup: Pollo Pinto MD [ACTIVE - CAN ADMIT] - Time spent managing pt's care (in minutes): 25
== END 2019-11-06 15:58 | disposition home or self-care (01) | DRG 871 ==
LOC: ER 14:06 → ERHOLD 15:47 → 2ND 17:09
PROVIDERS: ADMIT Internal Medicine; ATTEND Hospitalist
DX: A41.9 Sepsis, unspecified organism (principal); J96.01 Acute respiratory failure with hypoxia; I50.33 Acute on chronic diastolic (congestive) heart failure; Z68.44 Body mass index [BMI] 60.0-69.9, adult; E66.2 Morbid (severe) obesity with alveolar hypoventilation; N17.9 Acute kidney failure, unspecified; J44.1 Chronic obstructive pulmonary disease with (acute) exacerbation; N39.0 Urinary tract infection, site not specified; Z16.12 Extended spectrum beta lactamase (ESBL) resistance; I11.0 Hypertensive heart disease with heart failure; E78.5 Hyperlipidemia, unspecified; I48.91 Unspecified atrial fibrillation; F41.8 Other specified anxiety disorders; N28.9 Disorder of kidney and ureter, unspecified; F17.200 Nicotine dependence, unspecified, uncomplicated; K21.9 Gastro-esophageal reflux disease without esophagitis; Z88.1 Allergy status to other antibiotic agents; Z88.5 Allergy status to narcotic agent; Z88.8 Allergy status to other drugs, medicaments and biological substances; Z79.82 Long term (current) use of aspirin; Z79.899 Other long term (current) drug therapy; Z85.828 Personal history of other malignant neoplasm of skin; Z90.710 Acquired absence of both cervix and uterus; Z20.828 Contact with and (suspected) exposure to other viral communicable diseases
CPT/HCPCS: 36415; 51702; 71045; 80048; 80076; 81003; 81015; 82805; 83605; 83735; 83880; 84132; 84145; 84484; 85025; 85610; 87040; 87077; 87086; 87088; 87186; 87205; 93005; 94660; 94760; 96365; 96375; 97110; 97112; 97161; 97530; 99285; J0456; J0696; J1170; J1650; J1940; J2185; J2405; J2543; J3475; J7050; J7606; P9047; U0002

== ENCOUNTER 2020-03-14 15:52 | Inpatient (IN) | payer OTHER ==
[2020-03-14 17:24] LABS: Absolute Lymphocytes (CBC) 2.3 K/uL (0.7-4.9); Basophils % 0.7 % (0-1.3); Hematocrit 38.8 % (36.0-45.0); Lymphocytes % 26.6 % (15.3-44.8); MPV 7.4 fL (7.6-11.3); RBC Red Blood Cell Count 4.41 M/uL (3.86-4.86)
[2020-03-14 17:31] LABS: Protime INR 1.03
--- NOTE | 2020-03-14 17:37 | RAD REPORT ---
EXAM DESCRIPTION: RAD - Chest Single View - 03/14/2020 5:24 pm CLINICAL HISTORY: DYSPNEA Chest pain. COMPARISON: Chest Single View dated 11/01/2019; Chest Single View dated 08/03/2019; Chest Pa And Lat (2 Views) dated 04/30/2019; Chest Single View dated 09/25/2018 FINDINGS: Portable technique limits examination quality. [id number] bilateral interstitial lung opacities may represent pulmonary edema or viral infecti on. The is moderately enlarged in size.
[2020-03-14 17:47] LABS: ALT/SGPT 11 U/L (12-78); AST/SGOT 14 U/L (15-37); Albumin 2.8 g/dL (3.4-5.0); Alkaline Phosphatase 79 U/L (45-117); BUN Blood Urea Nitrogen 10 mg/dL (7-18); Bicarbonate 36 mmol/L (21-32); Bilirubin Direct < 0.1 mg/dL (0-0.2); Bilirubin Total 0.2 mg/dL (0.2-1.0); Glucose Level 93 mg/dL (74-106); NT PRO-BNP 1861 pg/mL (<125); Potassium 4.4 mmol/L (3.5-5.1); Protein, Total 6.2 g/dL (6.4-8.2); Sodium Level 144 mmol/L (136-145); Troponin (Emerg Dept Use Only) < 0.02 ng/mL (0.0-0.045)
[2020-03-14] MEDS ORDERED: FUROSEMIDE 100 MG/10 ML VIAL IV ONE (17:50)
--- NOTE | 2020-03-14 19:27 | ER ---
Nurse's Notes [facility] Name: Amy Velasquez Age: 69 yrs Sex: Female : 1950 Arrival Date: 03/14/2020 Time: 15:53 Bed 5 Private MD: Diagnosis: Acute diastolic (congestive) heart failure;Chronic respiratory failure with hypoxia Presentation: 03/14 15:53 Chief complaint: EMS states: pt from home, o2 dependent on 2.5-3L nc but she had about tw2 10 feet of oxygen tubing at home, family states they called MD and MD told them to send her here, she was tachy when we arrived high 80's low 90's on her oxygen, we placed her on 4L nc by our oxygen and she was 98%, 20g LEFT ac. Coronavirus screen: At this time, the client does not indicate any symptoms associated with coronavirus-19. Ebola Screen: Patient denies travel to an Ebola-affected area in the 21 days before illness onset. Initial Sepsis Screen: Does the patient meet any 2 criteria? HR > 90 bpm. Does the patient have a suspected source of infection? No. Patient's initial sepsis screen is negative. Risk Assessment: Do you want to hurt yourself or someone else? Patient reports no desire to harm self or others. Onset of symptoms was March 14, 2020. 15:53 Method Of Arrival: EMS: [facility] tw2 15:53 Acuity: BHARTI 2 tw2 15:53 Note provider notified of HR at this time. tw2 Triage Assessment: 15:53 General: Appears in no apparent distress. obese, Behavior is calm, cooperative, tw2 appropriate for age. Pain: Complains of pain in b/l knee pain. Respiratory: Reports shortness of breath at rest on exertion Onset: The symptoms/episode began/occurred today, the patient has mild shortness of breath. Historical: - Allergies: 16:00 Amitriptyline; tw2 16:00 Cipro; tw2 16:00 Morphine (rash, Itching); tw2 16:00 Phenobarbital; tw2 - Home Meds: 16:00 sertraline 50 mg Oral tab 3 tabs once daily [Active]; oxycodone-acetaminophen 10-325 mg tw2 Oral tab 1 tab every 6 hours for Pain [Active]; metoprolol tartrate 50 mg Oral tab 1 tab once daily [Active]; furosemide 20 mg Oral tab 1 tab once daily [Active]; - PMHx: 16:00 ADD/ADHD; Anxiety; Asthma; Atrial Fib; CANCER, SKIN; CHF; COPD; Degenerative disc tw2 disease; Hernia; Hypertension; - Immunization history:: Adult Immunizations. - Social history:: Smoking status: . Screenin:00 Abuse screen: Denies threats or abuse. Nutritional screening: No deficits noted. tw2 Tuberculosis screening: No symptoms or risk factors identified. Fall Risk Secondary diagnosis (15 points) impaired mobility. Assessment: 15:53 General: Appears obese, Behavior is calm, cooperative, appropriate for age. Neuro: tw2 Level of Consciousness is awake, alert, obeys commands, Oriented to person, place, situation. Cardiovascular: Heart tones S1 S2 Patient's skin is warm and dry. Rhythm is irregular. Cardiovascular: Edema appears to be swollen with anasarca from stomach down. Respiratory: Reports shortness of breath at rest on exertion Airway is patent Respiratory effort is even, unlabored, Respiratory pattern is regular, symmetrical, Breath sounds are diminished bilaterally. GI: No signs and/or symptoms were reported involving the gastrointestinal system. Abdomen is round obese. EENT: No signs and/or symptoms were reported regarding the EENT system. Derm: Skin is dry, Skin temperature is warm. Musculoskeletal: Circulation, motion, and sensation intact. ROM limited d/t pts anasarca. 16:02 Reassessment: provider at bedside at this time. tw2 17:47 Reassessment: No changes from previously documented assessment. Patient and/or family tw2 updated on plan of care and expected duration. Pain level reassessed. 18:44 Reassessment: No changes from previously documented assessment. Patient and/or family tw2 updated on plan of care and expected duration. Pain level reassessed. 19:30 General: Appears in no apparent distress. Behavior is appropriate for age. Neuro: Level ea of Consciousness is awake, alert, obeys commands, Oriented to person, place, situation. Cardiovascular: Patient's skin is warm and dry. Respiratory: Airway is patent Respiratory effort is even, unlabored, Respiratory pattern is regular, symmetrical. Derm: Skin is dry, Skin temperature is warm. 21:37 Reassessment: Patient and/or family updated on plan of care and expected duration. Pain ea level reassessed. Patient is alert, oriented x 3, equal unlabored respirations, skin warm/dry/pink. 22:17 Reassessment: Patient and/or family updated on plan of care and expected duration. Pain ea level reassessed. Patient is alert, oriented x 3, equal unlabored respirations, skin warm/dry/pink. Report called to receiving nurse on second floor. 22:34 Reassessment: Patient and/or family updated on plan of care and expected duration. Pain ea level reassessed. Patient is alert, oriented x 3, equal unlabored respirations, skin warm/dry/pink. Pt admitted to second floor, pt left ED via stretcher per tech, pt remains on O 2 at 3 L per nasal cannula. Pt tolerating well. Vital Signs: 15:53 BP 135 / 89; Pulse 130; Resp 10; Temp 98.4(TE); Pulse Ox 99% on 3 lpm NC; tw2 16:13 BP 127 / 88; Pulse 138; Resp 28; Pulse Ox 99% on 3 lpm NC; tw2 17:36 BP 87 / 53; Pulse 121; Resp 16; Pulse Ox 100% on 2 lpm NC; tw2 17:38 BP 87 / 42; Pulse 83; Resp 17; Pulse Ox 99% on 2 lpm NC; tw2 18:26 BP 103 / 62; Pulse 117; Resp 21; Pulse Ox 96% on 2 lpm NC; tw2 19:30 BP 143 / 98; Pulse 122; Resp 24; Pulse Ox 96% on 3 lpm NC; rr5 20:30 BP 108 / 82; Pulse 113; Resp 20; Pulse Ox 98% on 3 lpm NC; rr5 21:35 BP 125 / 106; Pulse 115; Resp 20; Pulse Ox 98% on 3 lpm NC; rr5 22:18 BP 122 / 93; Pulse 104; Resp 20; Temp 98.2; Pulse Ox 98% 3 lpm ; ea 17:38 provider aware of bp tw2 ED Course: 15:53 Patient arrived in ED. tw2 15:53 Bed in low position. Call light in reach. Side rails up X2. surveillance monitor on. Pulse tw2 ox on. NIBP on. 15:56 Blayne Crocker NP is PHCP. pm1 15:56 Francis Mcintyre MD is Attending Physician. pm1 15:58 Triage completed. tw2 16:00 Arm band placed on. tw2 16:04 PHCP role handed off by Blayne Crocker NP jr8 16:04 Alan Alves PA is PHCP. jr8 16:07 Melinda Caraballo RN is Primary Nurse. tw2 16:16 EKG done, by ED staff, reviewed by Alan MERRILL. em1 17:22 Missed attempt(s): 24 gauge in right upper arm. Bleeding controlled, band aid applied, tw2 catheter tip intact. Missed attempt(s): 24 gauge in right upper arm. Bleeding controlled, band aid applied, catheter tip intact. Missed attempt(s): 24 gauge in right hand. lab notified of need for blood draw at this time.. Bleeding controlled, band aid applied, catheter tip intact. 17:35 Song cath inserted, using sterile technique, 18 Fr., by oh, balloon inflated, returned iw cloudy urine. 17:45 Maintain EMS IV. Dressing intact. Site clean \T\ dry. Gauge \T\ site: 20 g LEFT ac. tw 2 20:53 Hola Aguilera DO is Hospitalizing Provider. dw 21:30 No provider procedures requiring assistance completed. Patient admitted, IV remains in ea place. Administered Medications: 17:36 Drug: Lasix 40 mg {Note: provider notified of BP 87/53.} Route: IVP; Site: left tw2 antecubital; 21:34 Drug: Lasix 80 mg {Note: BP 126/106.} Route: IVP; Site: left antecubital; rr5 21:37 Follow up: Response: No adverse reaction ea 21:50 CANCELLED (Physician Discretion): Rocephin 1 grams IV at calculated rate once; Given la1 slow IV push per pharmacy instructions Outcome: 19:27 Decision to Hospitalize by Provider. jr8 21:30 Instructed on the need for admit, Demonstrated understanding of instructions. ea 22:27 Admitted to Med/surg accompanied by tech, via stretcher, room 217, with oxygen, with ea chart, Report called to Receiving nurse on second floor 22:27 Condition: stable 22:36 Patient left the ED. ea Signatures: Inessa Amaral RN RN dw Williams, Irene, RN RN iw Martinez, Eric em1 Alan Alves PA PA jr8 Blayne Crocker, EARLY CHILDHOOD AIDE CLASSROOM EARLY CHILDHOOD AIDE CLASSROOM pm1 Melinda Caraballo, RN RN tw2 Laurel Bolaños, RN RN Jaiden Castillo, RN RN rr5 Jose Bai [facility]
--- NOTE | 2020-03-14 19:27 | EDPHYS ---
Physician Documentation [facility] Name: Amy Velasquez Age: 69 yrs Sex: Female : 1950 Arrival Date: 03/14/2020 Time: 15:53 Bed 5 Private MD: ED Physician Francis Mcintyre HPI: 03/14 17:12 This 69 yrs old Female presents to ER via EMS with complaints of Shortness Of jr8 Breath. 17:12 The patient has shortness of breath at rest. Onset: The symptoms/episode began/occurred jr8 gradually, 2 day(s) ago. Duration: The symptoms are continuous. The patient's shortness of breath has no apparent modifying factors. Associated signs and symptoms: The patient has no apparent associated signs or symptoms. Severity of symptoms: At their worst the symptoms were moderate in the emergency department the symptoms are unchanged. It is unknown whether or not the patient has had similar symptoms in the past. The patient has not recently seen a physician. 17:16 Patient reports non compliance with home medications. Increased shortness of breath jr8 while on home oxygen for the past few days that is getting worse . Historical: - Allergies: 16:00 Amitriptyline; tw2 16:00 Cipro; tw2 16:00 Morphine (rash, Itching); tw2 16:00 Phenobarbital; tw2 - Home Meds: 16:00 sertraline 50 mg Oral tab 3 tabs once daily [Active]; oxycodone-acetaminophen 10-325 mg tw2 Oral tab 1 tab every 6 hours for Pain [Active]; metoprolol tartrate 50 mg Oral tab 1 tab once daily [Active]; furosemide 20 mg Oral tab 1 tab once daily [Active]; - PMHx: 16:00 ADD/ADHD; Anxiety; Asthma; Atrial Fib; CANCER, SKIN; CHF; COPD; Degenerative disc tw2 disease; Hernia; Hypertension; - Immunization history:: Adult Immunizations. - Social history:: Smoking status: . ROS: 19:17 Eyes: Negative for injury, pain, redness, and discharge, ENT: Negative for injury, jr8 pain, and discharge, Neck: Negative for injury, pain, and swelling, Cardiovascular: Negative for chest pain, palpitations, and edema, Abdomen/GI: Negative for abdominal pain, nausea, vomiting, diarrhea, and constipation, Back: Negative for injury and pain, MS/Extremity: Negative for injury and deformity, Skin: Negative for injury, rash, and discoloration, Neuro: Negative for headache, weakness, numbness, tingling, and seizure. 19:17 Respiratory: Positive for orthopnea, shortness of breath. Exam: 19:17 Eyes: Pupils equal round and reactive to light, extra-ocular motions intact. Lids and jr8 lashes normal. Conjunctiva and sclera are non-icteric and not injected. Cornea within normal limits. Periorbital areas with no swelling, redness, or edema. ENT: Nares patent. No nasal discharge, no septal abnormalities noted. Tympanic membranes are normal and external auditory canals are clear. Oropharynx with no redness, swelling, or masses, exudates, or evidence of obstruction, uvula midline. Mucous membranes moist. Neck: Trachea midline, no thyromegaly or masses palpated, and no cervical lymphadenopathy. Supple, full range of motion without nuchal rigidity, or vertebral point tenderness. No Meningismus. Cardiovascular: Regular rate and rhythm with a normal S1 and S2. No gallops, murmurs, or rubs. Normal PMI, no JVD. No pulse deficits. Abdomen/GI: Soft, non-tender, with normal bowel sounds. No distension or tympany. No guarding or rebound. No evidence of tenderness throughout. Morbidly obese Skin: Warm, dry with normal turgor. Normal color with no rashes, no lesions, and no evidence of cellulitis. MS/ Extremity: Pulses equal, no cyanosis. Neurovascular intact. Full, normal range of motion. 19:17 Respiratory: mild respiratory distress is noted, Respirations: labored breathing, tachypnea, that is mild, Breath sounds: rales, that are mild, are located in both bases. Vital Signs: 15:53 BP 135 / 89; Pulse 130; Resp 10; Temp 98.4(TE); Pulse Ox 99% on 3 lpm NC; tw2 16:13 BP 127 / 88; Pulse 138; Resp 28; Pulse Ox 99% on 3 lpm NC; tw2 17:36 BP 87 / 53; Pulse 121; Resp 16; Pulse Ox 100% on 2 lpm NC; tw2 17:38 BP 87 / 42; Pulse 83; Resp 17; Pulse Ox 99% on 2 lpm NC; tw2 18:26 BP 103 / 62; Pulse 117; Resp 21; Pulse Ox 96% on 2 lpm NC; tw2 19:30 BP 143 / 98; Pulse 122; Resp 24; Pulse Ox 96% on 3 lpm NC; rr5 20:30 BP 108 / 82; Pulse 113; Resp 20; Pulse Ox 98% on 3 lpm NC; rr5 21:35 BP 125 / 106; Pulse 115; Resp 20; Pulse Ox 98% on 3 lpm NC; rr5 22:18 BP 122 / 93; Pulse 104; Resp 20; Temp 98.2; Pulse Ox 98% 3 lpm ; ea 17:38 provider aware of bp tw2 MDM: 16:04 Patient medically screened. jr8 19:24 Data reviewed: vital signs, nurses notes, lab test result(s), EKG, radiologic studies, jr8 plain films. Data interpreted: Pulse oximetry: on 3L(s) per nasal canula, is 96 %. Interpretation: normal. Counseling: I had a detailed discussion with the patient and/or guardian regarding: the historical points, exam findings, and any diagnostic results supporting the discharge/admit diagnosis, lab results, radiology results, the need for further work-up and treatment in the hospital. 03/14 16:15 Order name: Basic Metabolic Panel [facility] 03/14 16:15 Order name: CBC with Diff [facility] 03/14 16:15 Order name: LFT's [facility] 03/14 16:15 Order name: Magnesium [facility] 03/14 16:15 Order name: NT PRO-BNP [facility] 03/14 16:15 Order name: PT-INR [facility] 03/14 16:15 Order name: Troponin (emerg Dept Use Only) [facility] 03/14 17:25 Order name: CBC with Automated Diff; Complete Time: 17:42 EDMS 03/14 17:39 Order name: Protime (+INR); Complete Time: 17:42 EDMS 03/14 17:47 Order name: Basic Metabolic Panel; Complete Time: 18:36 EDMS 03/14 17:47 Order name: Liver (Hepatic) Function; Complete Time: 18:36 EDMS 03/14 17:47 Order name: Troponin (Emerg Dept Use Only); Complete Time: 18:36 EDMS 03/14 17:47 Order name: NT PRO-BNP; Complete Time: 18:36 EDMS 03/14 16:15 Order name: XRAY Chest (1 view) [facility] 03/14 16:15 Order name: EKG; Complete Time: 16:31 [facility] 03/14 16:15 Order name: Cardiac monitoring; Complete Time: 16:17 [facility] 03/14 16:15 Order name: EKG - Nurse/Tech; Complete Time: 16:16 [facility] 03/14 16:15 Order name: IV Saline Lock; Complete Time: 17:45 [facility] 03/14 16:15 Order name: Labs collected and sent; Complete Time: 17:09 [facility] 03/14 16:15 Order name: O2 Per Protocol; Complete Time: 16:17 [facility] 03/14 16:15 Order name: O2 Sat Monitoring; Complete Time: 16:17 [facility] 03/14 16:15 Order name: Song; Complete Time: 17:44 [facility] 03/14 17:38 Order name: RAD; Complete Time: 17:42 EDMA 03/14 17:47 Order name: Magnesium; Complete Time: 18:36 [facility] 03/14 20:33 Order name: SARS-COV-2 RT PCR [facility] 03/14 22:27 Order name: Urine Dipstick--Ancillary (enter results) tt3 03/14 22:27 Order name: Urine Culture 03/14 21:51 Order name: Urine Dipstick-Ancillary (obtain specimen); Complete Time: 22:27 la1 Administered Medications: 17:36 Drug: Lasix 40 mg {Note: provider notified of BP 87/53.} Route: IVP; Site: left tw2 antecubital; 21:34 Drug: Lasix 80 mg {Note: BP 126/106.} Route: IVP; Site: left antecubital; rr5 21:37 Follow up: Response: No adverse reaction ea 21:50 CANCELLED (Physician Discretion): Rocephin 1 grams IV at calculated rate once; Given la1 slow IV push per pharmacy instructions Disposition: 03/14/20 19:27 Hospitalization ordered by Hola Aguilera for Inpatient Admission. Preliminary diagnosis are Acute diastolic (congestive) heart failure, Chronic respiratory failure with hypoxia. - Bed requested for Telemetry/MedSurg (Inpatient). - Status is Inpatient Admission. ea - Condition is Stable. - Problem is new. - Symptoms have improved. Addendum: 03/20/2020 09:06 Co-signature as Attending Physician, Francis Mcintyre MD. r n Signatures: Dispatcher [employer] [facility] Inessa Amaral RN Francis Rios MD MD rn Roszak, Josh, DESIRAE PA jr8 Enzojean-claude, Jose, [employer]-Cla1 Melinda Caraballo RN RN tw2 Laurel Bolaños RN RN ea Roque, Raymond RN RN rr5 Corrections: (The following items were deleted from the chart) 03/14 19:39 17:43 CORONAVIRUS+MR.LAB.BRZ ordered. EDMA EDMA 20:53 19:27 Hospitalization Ordered by for Inpatient Admission. Preliminary diagnosis is dw Acute diastolic (congestive) heart failure; Chronic respiratory failure with hypoxia. Bed requested for Telemetry/MedSurg (Inpatient). Status is Inpatient Admission. Condition is Stable. Problem is new. Symptoms have improved. jr8 21:50 21:50 Rocephin 1 grams IV at calculated rate once; Given slow IV push per pharmacy la1 instructions ordered. la1 22:36 20:53 03/14/2020 19:27 Hospitalization Ordered by Hola Aguilera DO for Inpatient ea Admission. Preliminary diagnosis is Acute diastolic (congestive) heart failure; Chronic respiratory failure with hypoxia. Bed requested for Telemetry/MedSurg (Inpatient). Status is Inpatient Admission. Condition is Stable. Problem is new. Symptoms have improved. dw
[2020-03-14] MEDS ORDERED: FUROSEMIDE 40 MG/4 ML VIAL ONE (21:47)
--- NOTE | 2020-03-14 22:01 | P.HP ---
Certification for Inpatient Patient admitted to: Inpatient With expected LOS: >2 Midnights Patient will require the following post-hospital care: Home Health Services Practitioner: I am a practitioner with admitting privileges, knowledge of patient current condition, hospital course, and medical plan of care. Services: Services provided to patient in accordance with Admission requirements found in Title 42 Section 412.3 of the Code of Federal Regulations <Jose Bai - Last Filed: 03/14/20 21:54> Patient History Date of Service: 03/14/20 Reason for admission: CHF exacerbation History of Present Illness: 69-year-old female with history of chronic diastolic congestive heart failure, anxiety with depression, atrial fibrillation, COPD, hypertension, morbid obesity presents to the emergency department for shortness of breath. Patient lives at home with her significant other who reports that she has become increasingly weak over the course of the last couple days. Family reports that patient slid out of bed onto the floor approximately 2 days ago and they had to call for lift assist to get her back in bed. Since then patient has not been able to get out of her bed without additional help and she is unstable on her feet. Patient previously that around reasonably well on her own. Patient also on home oxygen but was found to be hypoxic in the 80s on 2.5-3 L per nasal cannula at home. Patient's evaluation in the emergency department revealed moderate fluid volume overload, chest x-ray suggestive of mild to moderate bilateral interstitial lung opacities likely pulmonary edema, patient with significant edema to bilateral lower extremities and is mildly dyspneic. Labs are significant for elevated BNP 1861. Patient also with AFib rapid ventricular response, reports she is not compliant with her home medication metoprolol or Lasix. Patient also the following fluid restrictions at home. ED provider wishes to admit patient for further evaluation and management. When I saw the patient in the ER she was awake, alert, oriented x3. Will be admitted for further evaluation and management. - Past Medical/Surgical History Diabetic: No -: Hypertension -: COPD -: Chronic diastolic congestive heart failure -: GERD -: Morbid obesity -: Anxiety -: DDD, DJD lumbar spine, chronic pain -: skin cancer -: History of Liver tumor -: Chronic back pain-Pain management-Dr. Herron -: Depression with anxiety -: Hernia, UTI: ESBL -: Left ovarian tumor removal -: Hysterectomy -: Hernia Repair -: Lymphoma Left leg removed -: Melanoma removed from back Psychosocial/ Personal History: , Disabled, 5 children - Family History Father -: Heart disease, Hypertension, Diabetes, Cancer, Liver disease Mother -: Heart disease, Hypertension, Diabetes, Cancer Sister -: Heart disease, Hypertension, Diabetes Brother -: Hypertension - Social History Smoking Status: Unknown if ever smoked Alcohol use: No CD- Drugs: No Caffeine use: Yes Place of Residence: Home <Jose Bai - Last Filed: 03/14/20 21:54> Date of Service: 03/15/20 Home medications list reviewed: Yes <Hola Aguilera - Last Filed: 03/15/20 17:39> Allergies amitriptyline HCl [From Elavil] Allergy (Intermediate, Verified 11/01/19 19:29) Nausea/Vomiting ciprofloxacin [From Cipro] Allergy (Intermediate, Verified 11/01/19 19:29) Rash metronidazole Allergy (Verified 11/01/19 19:29) Itching morphine Allergy (Verified 11/01/19 19:29) Itching phenobarbital Allergy (Verified 11/01/19 19:29) Itching/Hives/Rash Home Medications: Esomeprazole Magnesium 40 mg PO DAILY 11/03/19 Fluconazole 200 mg PO SEECOM 11/03/19 Furosemide [Lasix*] 40 mg PO BIDL 11/03/19 Lisinopril [Zestril] 40 mg PO DAILY 11/03/19 Metoprolol Succinate [Toprol Xl*] 50 mg PO DAILY 11/03/19 Nitrofuran Macro [Macrobid*] 1 tab PO BID 11/03/19 Sertraline HCl 2 tab PO DAILY 11/03/19 clonazePAM [Clonazepam] 1 mg PO BIDP PRN 11/03/19 hydrOXYzine pamoate [Hydroxyzine Pamoate] 25 mg PO BID 11/03/19 Pantoprazole [Protonix Tab*] 40 mg PO DAILY #30 tab 11/06/19 Potassium Chloride [K-Dur] 10 meq PO DAILY #30 tab.er.prt 11/06/19 Gabapentin [Neurontin] 400 mg PO TID 03/15/20 Ondansetron HCl [Zofran] 4 mg PO DAILY 03/15/20 Oxycodone HCl/Acetaminophen [Oxycodone-Acetaminophen 10-325] 1 each PO Q4H 03/15/20 Review of Systems 10-point ROS is otherwise unremarkable Respiratory: Cough, Dry, Shortness of Breath Cardiovascular: Edema <Jose Bai - Last Filed: 03/14/20 21:54> Physical Examination - Physical Exam General: Alert, In no apparent distress, Oriented x3 HEENT: Atraumatic, Normocephalic, PERRLA Neck: Supple Respiratory: Diminished (Bilaterally), Crackles/rales (Mild bibasilar) Cardiovascular: Edema (Significant edema bilateral lower extremities), Irregular heart rate/rhythm (Atrial fibrillation rate around 110) Capillary refill: <2 Seconds Gastrointestinal: No ascites, No tenderness, No masses, No rebound, No guarding Musculoskeletal: No contractures, No erythema, No tenderness Integumentary: No tenderness/swelling, No erythema, No warmth Neurological: Normal speech, Normal tone, Normal affect - Studies Laboratory Data (last 24 hrs) 03/14/20 17:07: PT 12.1, INR 1.03 03/14/20 17:07: WBC 8.7, Hgb 11.9 L, Hct 38.8, Plt Count 263 03/14/20 17:07: Sodium 144, Potassium 4.4, BUN 10, Creatinine 0.74, Glucose 93, Magnesium 2.0, Total Bilirubin 0.2, AST 14 L, ALT 11 L, Alkaline Phosphatase 79 <Jose Bai - Last Filed: 03/14/20 21:54> - Studies Laboratory Data (last 24 hrs) 03/14/20 17:07: PT 12.1, INR 1.03 03/14/20 17:07: Sodium 144, Potassium 4.4, BUN 10, Creatinine 0.74, Glucose 93, Magnesium 2.0, Total Bilirubin 0.2, AST 14 L, ALT 11 L, Alkaline Phosphatase 79 <Hola Aguilera - Last Filed: 03/15/20 17:39> Assessment and Plan - Plan Assessment Acute on chronic diastolic congestive heart failure with hypoxia and volume overload Atrial fibrillation with rapid ventricular response Medical Debility and deconditioning COPD Hypertension Depression with anxiety Morbid obesity Plan Acute on chronic diastolic congestive heart failure with hypoxia and volume overload: Continue with IV diuresis, fluid restriction. Monitor on telemetry. Supplemental oxygen as needed. Last echocardiogram shows ejection fraction around 60%. Cardiology consult in place. Atrial fibrillation with rapid ventricular response: Patient not currently on any anti coagulation therapy, continue with metoprolol 50 mg p.o. b.i.d. for rate control. Appreciate further input from Cardiology in regard to need for anticoagulation. Medical Debility and deconditioning: Patient unable to stand or ambulate without assistance per her family and is morbidly obese. Family prefers that she is not placed in a snf but are amendable to inpatient rehab facility or physical therapy at home if this is appropriate. Physical therapy and social work consults in place to determine the best plan of care upon discharge. COPD: Obtain and continue home medications, patient without any wheezing at this time. Dyspnea likely secondary to volume overload. Hypertension: Continue metoprolol, obtain and continue other home medications as appropriate. Depression with anxiety: Obtain and continue home medications. Morbid obesity: Discussed lifestyle changes. Discharge Plan: Home Plan to discharge in: 72 Hours - Advance Directives Does patient have a Living Will: No Does patient have a Durable POA for Healthcare: No - Code Status/Comfort Care Code Status Assessed: Yes (Full code) Critical Care: No Time Spent Managing Pts Care (In Minutes): 55 <Jose Bai - Last Filed: 03/14/20 21:54> - Plan Case discussed in detail with nurse practitioner. Please see progress note for details. Case discussed also in detail with cardiology, pulmonology and nephrology. <Hola Aguilera - Last Filed: 03/15/20 17:39>
[2020-03-14 22:43] LABS: Urine Blood 1+ (NEG); Urine Glucose NEGATIVE (NEG); Urine Protein NEGATIVE (NEG); Urine Specific Gravity 1.025 (1.005-1.030); Urine pH 5.5 (5.0-7.0)
[2020-03-14 23:21] VITALS: BMI 90.2
[2020-03-14] MEDS: Oxycodone HCl/Acetaminophen 1 TAB TAB PO PRN (23:35)
[2020-03-14] MEDS: METOPROLOL TAR 50 MG TAB PO SCH (23:35)
[2020-03-14] MEDS: ONDANSETRON 4 MG/2 ML VIAL IV PRN (23:36)
[2020-03-15] MEDS ORDERED: METOPROLOL TARTRATE 5 MG/5 ML INJ IV ONE (05:20)
[2020-03-15] MEDS ORDERED: METOPROLOL TARTRATE 5 MG/5 ML INJ IV PRN (06:05)
[2020-03-15 06:19] LABS: Absolute Lymphocytes (CBC) 2.4 K/uL (0.7-4.9); Hematocrit 39.3 % (36.0-45.0); Lymphocytes % 22.6 % (15.3-44.8); MPV 8.3 fL (7.6-11.3); RBC Red Blood Cell Count 4.47 M/uL (3.86-4.86)
[2020-03-15] MEDS: METOPROLOL TAR 50 MG TAB PO SCH ×2 (06:29→21:46)
[2020-03-15 06:40] LABS: Magnesium 1.9 mg/dL (1.8-2.4); Potassium 4.6 mmol/L (3.5-5.1); Thyroid Stimulating Hormone 1.91 uIU/mL (0.360-3.740)
[2020-03-15 06:41] LABS: Blood Morphology Comment NOT SEEN (NOT SEEN); Platelet Estimate ADEQ
[2020-03-15] MEDS ORDERED: DIGOXIN 0.25 MG/ML AMP IV SCH (07:00)
[2020-03-15] MEDS: ENOXAPARIN 100 MG/ML SYR SQ SCH ×2 (08:37→21:46)
[2020-03-15] MEDS ORDERED: ENOXAPARIN 40 MG/0.4 ML SQ SCH (09:00)
[2020-03-15] MEDS ORDERED: FUROSEMIDE 40 MG/4 ML VIAL IV SCH (09:00)
--- NOTE | 2020-03-15 12:41 | EKG ---
Test Date: 2020-03-14 Test Time: 16:10:39 Director Business Integration: [place] MEASUREMENT RESULTS: Intervals: Rate: 128 NC: QRSD: 78 QT: 310 QTc: 452 [place]: P: NC: QRS: 68 T: 2 INTERPRETIVE STATEMENTS: Atrial fibrillation with rapid ventricular response with premature ventricular or aberrantly conducted complexes Low voltage QRS Cannot rule out Anterior infarct, age undetermined Abnormal ECG Compared to ECG 11/01/2019 14:30:49 Ventricular premature complex(es) now present Low QRS voltage now present Sinus tachycardia no longer present Myocardial infarct finding still present Electronically Signed On 03-15-20 12:39:38 CONSTRUCTION SUPERINTENDENT by Pollo Pinto
--- NOTE | 2020-03-15 13:57 | ECHO ---
HEIGHT: 5 ft 2 in WEIGHT: 493 lb 0 oz DATE OF STUDY: 03/15/[address]: Pollo Pinto MD 2-DIMENSIONAL: YES M.MODE: YES DOPPLER: YES COLOR FLOW: YES TDS: YES PORTABLE: YES DEFINITY: BUBBLE STUDY: DIAGNOSIS: CONGESTIVE HEART FAILURE CARDIAC HISTORY: CATHERIZATION: SURGERY: PROSTHETIC VALVE: PACEMAKER: MEASUREMENTS (cm) DIASTOLIC (NORMALS) SYSTOLIC (NORMALS) IVSd 1.0 (0.6-1.2) LA Diam 4.1 (1.9-4.0) LVEF 51% LVIDd 3.0 (3.5-5.7) LVIDs 2.3 (2.0-3.5) %FS 25% LVPWd 1.0 (0.6-1.2) Ao Diam (2.0-3.7) 2 DIMENSIONAL ASSESSMENT: RIGHT ATRIUM: NORMAL LEFT ATRIUM: DILATED RIGHT VENTRICLE: NORMAL LEFT VENTRICLE: NORMAL TRICUSPID VALVE: NORMAL MITRAL VALVE: NORMAL PULMONIC VALVE: NORMAL AORTIC VALVE: SCLEROSIS PERICARDIAL EFFUSION: NONE AORTIC ROOT: NORMAL LEFT VENTRICULAR WALL MOTION: NORMAL EJECTION FRACTION AND SIZE DOPPLER/COLOR FLOW: MILD TRICUSPID REGURGITATION. NORMAL RIGHT VENTRICULAR SYSTOLIC PRESSURE COMMENTS: DIASTOLIC DYSFUNCTION. AORTIC SCLEROSIS - NO STENOSIS. LEFT ATRIAL ENLARGEMENT. NORMAL EJECTION FRACTION AND SIZE. TECHNOLOGIST: JANET MANZANARES/ PORTIA DUNAWAY
[2020-03-15] MEDS: PIPER/TAZO/NS 3.375gm 3.375 GM/100 ML BAG IVPB SCH (17:14)
--- NOTE | 2020-03-15 17:38 | P.PN ---
Subjective Date of Service: 03/15/20 Chief Complaint: CHF exacerbation Subjective: Other (Some sedation noted.) Physical Examination - Vital Signs Temperature: 97.6 F Blood Pressure: 129/71 Pulse: 96 Respirations: 16 Pulse Ox (%): 95 - Physical Exam General: Alert, Cooperative HEENT: Atraumatic Neck: Supple Respiratory: Diminished (Bilateral) Cardiovascular: Irregular heart rate/rhythm (AFib rate controlled) Gastrointestinal: Normal bowel sounds Integumentary: Skin breakdown, Tenderness/swelling (Edema to the lower extremities bilateral) Neurological: Normal speech, Normal strength at 5/5 x4 extr, Normal tone, Normal affect - Studies Laboratory Data (last 24 hrs) 03/14/20 17:07: PT 12.1, INR 1.03 03/14/20 17:07: Sodium 144, Potassium 4.4, BUN 10, Creatinine 0.74, Glucose 93, Magnesium 2.0, Total Bilirubin 0.2, AST 14 L, ALT 11 L, Alkaline Phosphatase 79 Medications List Reviewed: Yes Assessment & Plan Discharge Plan: Home Plan to discharge in: Greater than 2 days Physician Review Additional Text: Assessment Acute on chronic diastolic congestive heart failure with hypoxia and volume overload Atrial fibrillation with rapid ventricular response Medical Debility and deconditioning COPD Hypertension Depression with anxiety Morbid obesity Plan Acute on chronic diastolic congestive heart failure with hypoxia and volume overload: Will continue with IV fluid diuresis and fluid restriction. Spoke with nephrology who sees the patient as a PCP. Echo shows diastolic dysfunction. Consult pulmonology to further address her COPD. Wound consultation for her breakdown to the legs. Continue monitor closely. Await further recommendations from specialist. Atrial fibrillation with rapid ventricular response: Continue with anti coagulation therapy. Continue metoprolol. Rate better controlled peer Medical Debility and deconditioning: Wound Care consulted. Patient will require physical therapy. Likely need skilled placement at discharge. COPD: Will provide medication. Pulmonology consulted.. Hypertension: Continue metoprolol, obtain and continue other home medications as appropriate. Depression with anxiety: Obtain and continue home medications. Hold any medication with increase sedation. Morbid obesity: Discussed lifestyle changes. Time Spent Managing Pts Care (In Minutes): 55
[2020-03-15] MEDS ORDERED: HOME MED 1 EA UNK (Oxycodone Hcl/Acetaminophen [Oxycodone-Acetaminophen 10-325] Tablet) PO SCH (17:45)
[2020-03-15] MEDS: ARFORMOTEROL TARTRATE 15 MCG/2 ML VIAL.NEB NEB SCH (19:30)
[2020-03-15] MEDS: OXYCODONE HCL PO SCH (20:00)
[2020-03-15] MEDS: ACETAMINOPHEN PO SCH (20:00)
[2020-03-15] MEDS: JUVEN PACKET PO SCH (21:45)
[2020-03-16] MEDS: PIPER/TAZO/NS 3.375gm 3.375 GM/100 ML BAG IVPB SCH ×2 (01:20→10:10)
[2020-03-16] MEDS: OXYCODONE HCL PO SCH ×2 (04:00)
[2020-03-16] MEDS: ACETAMINOPHEN PO SCH ×2 (04:00)
[2020-03-16 06:06] LABS: Absolute Lymphocytes (CBC) 2.2 K/uL (0.7-4.9); Basophils % 1.4 % (0-1.3); Hematocrit 36.4 % (36.0-45.0); Lymphocytes % 20.5 % (15.3-44.8); MPV 7.6 fL (7.6-11.3); RBC Red Blood Cell Count 4.18 M/uL (3.86-4.86)
[2020-03-16 06:21] LABS: Magnesium 1.9 mg/dL (1.8-2.4); Potassium 5.1 mmol/L (3.5-5.1)
[2020-03-16] MEDS: SERTRALINE HCL 100 MG TAB PO SCH (10:10)
[2020-03-16] MEDS: METOPROLOL TAR 50 MG TAB PO SCH ×2 (10:10→22:48)
[2020-03-16] MEDS: PANTOPRAZOLE 40MG TABLET PO SCH (10:10)
[2020-03-16] MEDS: ENOXAPARIN 100 MG/ML SYR SQ SCH ×2 (10:11→22:48)
[2020-03-16] MEDS: JUVEN PACKET PO SCH ×2 (10:12→21:00)
[2020-03-16] MEDS: Oxycodone HCl/Acetaminophen 1 TAB TAB PO PRN ×2 (10:13→22:52)
[2020-03-16] MEDS: ARFORMOTEROL TARTRATE 15 MCG/2 ML VIAL.NEB NEB SCH ×2 (10:20→20:15)
--- NOTE | 2020-03-16 12:07 | P.CNS ---
Date of Consult: 03/16/20 Reason for Consult: Respiratory failure Chief Complaint: Shortness of breath History of Present Illness: Patient is 69 years of age morbidly obese the triple medical problems admitted to the emergency room with worsening dyspnea lower extremity edema this morning she was hypoxic of breath patient also has in AFib cade virus negative mildly elevated bicarbonate patient does not smoke Allergies amitriptyline HCl [From Elavil] Allergy (Intermediate, Verified 11/01/19 19:29) Nausea/Vomiting ciprofloxacin [From Cipro] Allergy (Intermediate, Verified 11/01/19 19:29) Rash metronidazole Allergy (Verified 11/01/19 19:29) Itching morphine Allergy (Verified 11/01/19 19:29) Itching phenobarbital Allergy (Verified 11/01/19 19:29) Itching/Hives/Rash Home Medications: Esomeprazole Magnesium 40 mg PO DAILY 11/03/19 Fluconazole 200 mg PO SEECOM 11/03/19 Furosemide [Lasix*] 40 mg PO BIDL 11/03/19 Lisinopril [Zestril] 40 mg PO DAILY 11/03/19 Metoprolol Succinate [Toprol Xl*] 50 mg PO DAILY 11/03/19 Nitrofuran Macro [Macrobid*] 1 tab PO BID 11/03/19 Sertraline HCl 2 tab PO DAILY 11/03/19 clonazePAM [Clonazepam] 1 mg PO BIDP PRN 11/03/19 hydrOXYzine pamoate [Hydroxyzine Pamoate] 25 mg PO BID 11/03/19 Pantoprazole [Protonix Tab*] 40 mg PO DAILY #30 tab 11/06/19 Potassium Chloride [K-Dur] 10 meq PO DAILY #30 tab.er.prt 11/06/19 Gabapentin [Neurontin] 400 mg PO TID 03/15/20 Ondansetron HCl [Zofran] 4 mg PO DAILY 03/15/20 Oxycodone HCl/Acetaminophen [Oxycodone-Acetaminophen 10-325] 1 each PO Q4H 03/15/20 - Past Medical/Surgical History Diabetic: No -: Hypertension -: COPD -: Chronic diastolic congestive heart failure -: GERD -: Morbid obesity -: Anxiety -: DDD, DJD lumbar spine, chronic pain -: skin cancer -: History of Liver tumor -: Chronic back pain-Pain management-Dr. Herron -: Depression with anxiety -: Hernia, UTI: ESBL -: Left ovarian tumor removal -: Hysterectomy -: Hernia Repair -: Lymphoma Left leg removed -: Melanoma removed from back Psychosocial/ Personal History: , Disabled, 5 children - Family History Father Medical History: Heart disease, Hypertension, Diabetes, Cancer, Liver disease Mother Medical History: Heart disease, Hypertension, Diabetes, Cancer Sister Medical History: Heart disease, Hypertension, Diabetes Brother Medical History: Hypertension - Social History Smoking Status: Current every day smoker Alcohol use: No CD- Drugs: No Caffeine use: Yes Place of Residence: Home Review of Systems General: Weakness Respiratory: Shortness of Breath Cardiovascular: Edema Physical Examination Temp Pulse Resp BP Pulse Ox 97.8 F 112 H 20 139/84 96 03/16/20 08:00 03/16/20 10:10 03/16/20 10:13 03/16/20 10:10 03/16/20 10:13 General: Alert, Moderate distress HEENT: Atraumatic Neck: Supple Respiratory: Diminished Cardiovascular: Edema, Irregular heart rate/rhythm Gastrointestinal: Normal bowel sounds, Soft and benign - Problems (1) Respiratory failure Current Visit: Yes Status: Acute Plan: Patient is 69 years of age admitted with progressive dyspnea chest x-ray shows some interstitial changes normal kidney function mildly elevated bicarbonate normal white count vital signs oxygenation satisfactory ABGs is still pending I suspect that she has obesity hyperventilation syndrome echocardiogram shows diastolic dysfunction recommend addition of her Diamox with spironolactone also started her on BiPAP continuous pulse ox history of ESBL change to meropenem patient is in AFib change to p.o. Eliquis ABGs ordered Qualifiers: Chronicity: acute on chronic
[2020-03-16] MEDS ORDERED: Meropenem 1000 MG/VIAL IV SCH (12:42)
--- NOTE | 2020-03-16 12:47 | P.PN ---
Subjective Date of Service: 03/16/20 Chief Complaint: Shortness of breath Subjective: Other (Patient more alert today. Still with increase sedation and fatigue.) Physical Examination - Vital Signs Temperature: 97.8 F Blood Pressure: 139/84 Pulse: 112 Respirations: 20 Pulse Ox (%): 96 - Physical Exam General: Alert, Cooperative HEENT: Atraumatic Neck: Supple Respiratory: Diminished (Bilateral. Morbid obesity) Cardiovascular: Irregular heart rate/rhythm (Atrial fibrillation rate controlled) Gastrointestinal: Normal bowel sounds, Other (Large pannus) Integumentary: Other (Breakdown to the lower extremities. Wound care to evaluate the back of the leg.) Neurological: Normal speech, Normal strength at 5/5 x4 extr, Normal tone, Normal affect - Studies Medications List Reviewed: Yes Assessment & Plan Discharge Plan: Other (penitentiary facility) Plan to discharge in: Greater than 2 days Physician Review Additional Text: Assessment Acute on chronic diastolic congestive heart failure with hypoxia and volume overload complicated with hypoventilation obesity syndrome Atrial fibrillation with rapid ventricular response UTI suspect ESBL, urine culture positive for Gram-negative rods Medical Debility and deconditioning COPD Hypertension Depression with anxiety Morbid obesity Plan Acute on chronic diastolic congestive heart failure with hypoxia and volume overload complicated with hypoventilation obesity syndrome: Case discussed with pulmonology. ABG to be checked. Pulmonology recommends to change diuretic therapy to Aldactone and Diamox. Patient may require BiPAP. Patient also with UTI. Patient afebrile. White count normal. Suspect ESBL. Blood culture positive likely contaminant. Discontinue Zosyn. Change to meropenem. Await culture results. Will discuss further with nephrology. Wound care to also evaluate breakdown to the lower extremity. Recheck chest x-ray tomorrow. Social work consulted to help with possible half-way facility placement at discharge. We need her condition to be better to have her work with physical therapy. Atrial fibrillation with rapid ventricular response: Continue with anti coagulation therapy. Continue metoprolol. Rate better controlled UTI suspect ESBL, urine culture positive for Gram-negative rods: IV Zosyn discontinued. Change to meropenem. Await urine culture results. Blood culture positive likely contaminant. Will monitor this closely. Medical Debility and deconditioning: Wound Care consulted. Patient will require physical therapy. Likely need skilled placement at discharge. COPD: Will provide medication. Case discussed with pulmonology. Continue with above plan of care. Hypertension: Continue metoprolol, obtain and continue other home medications as appropriate. Depression with anxiety: Obtain and continue home medications. Hold any medication with increase sedation. Morbid obesity: Discussed lifestyle changes. Time Spent Managing Pts Care (In Minutes): 55
[2020-03-16] MEDS: SPIRONOLACTONE 25 MG TABLET PO SCH (12:51)
[2020-03-16] MEDS: acetaZOLAMIDE 250 MG TAB PO SCH (12:51)
[2020-03-16] MEDS: Meropenem 1,000 MG in NA CHLORIDE 0.9% 100 ML IV SCH ×2 (14:06→22:47)
[2020-03-16 16:22] LABS: Arterial Blood Carboxyhemoglob 1.4 % (0-1.5); Blood O2 Saturation 98.3 % (92-98.5)
[2020-03-16] MEDS: ONDANSETRON 4 MG/2 ML VIAL IV PRN (17:02)
[2020-03-17 04:20] LABS: Absolute Lymphocytes (CBC) 1.9 K/uL (0.7-4.9); Basophils % 0.9 % (0-1.3); Hematocrit 36.2 % (36.0-45.0); Lymphocytes % 23.3 % (15.3-44.8); MPV 7.6 fL (7.6-11.3)
[2020-03-17 04:30] LABS: Magnesium 1.9 mg/dL (1.8-2.4); Potassium 4.2 mmol/L (3.5-5.1)
--- NOTE | 2020-03-17 08:15 | RAD REPORT ---
EXAM DESCRIPTION: Vikash Single View03/17/2020 6:02 am CLINICAL HISTORY: Shortness of breath COMPARISON: March 14 FINDINGS: The bilateral pulmonary opacities have mostly resolved. Heart is mildly enlarged
[2020-03-17] MEDS: ARFORMOTEROL TARTRATE 15 MCG/2 ML VIAL.NEB NEB SCH ×2 (08:55→20:45)
[2020-03-17] MEDS: IPRATROPIUM BROM 0.5MG/2.5ML NEB PRN (08:55)
[2020-03-17] MEDS: SPIRONOLACTONE 25 MG TABLET PO SCH ×2 (10:14→21:20)
[2020-03-17] MEDS: acetaZOLAMIDE 250 MG TAB PO SCH (10:14)
[2020-03-17] MEDS: Meropenem 1,000 MG in NA CHLORIDE 0.9% 100 ML IV SCH (10:15)
[2020-03-17] MEDS: SERTRALINE HCL 100 MG TAB PO SCH (10:15)
[2020-03-17] MEDS: PANTOPRAZOLE 40MG TABLET PO SCH (10:15)
[2020-03-17] MEDS: ENOXAPARIN 100 MG/ML SYR SQ SCH (10:15)
[2020-03-17] MEDS: METOPROLOL TAR 50 MG TAB PO SCH ×2 (10:15→21:20)
[2020-03-17] MEDS: Oxycodone HCl/Acetaminophen 1 TAB TAB PO PRN ×2 (10:16→18:23)
[2020-03-17] MEDS: JUVEN PACKET PO SCH ×2 (10:16→21:00)
--- NOTE | 2020-03-17 11:09 | P.PN ---
Subjective Date of Service: 03/17/20 (Hospitalist) Chief Complaint: Chronic respiratory failure Subjective: Improving (Patient is doing better still complaining of generalized pain discussed with she is bed-bound) Review of Systems General: Weakness Respiratory: Shortness of Breath Physical Examination - Vital Signs Temperature: 97.2 F Blood Pressure: 148/86 Pulse: 84 Respirations: 16 Pulse Ox (%): 97 - Physical Exam General: Alert, Moderate distress Neck: Supple Respiratory: Clear to auscultation bilaterally Cardiovascular: Normal S1 S2, Edema - Studies Medications List Reviewed: Yes Assessment & Plan - Problems (Diagnosis) (1) Respiratory failure Current Visit: Yes Status: Acute Plan: Patient admitted with chronic respiratory failure secondary to COPD knee it is noninvasive posture pressure ventilation to prevent hospital readmission patient will let benefit from a trilogy volume ventilator for nocturnal and daytime uses needed reduce the risk of hospitalization home BiPAP pains is in insufficient due to the severity of the condition probably has underlying diastolic dysfunction he will need bronchodilators at home increase spironolactone to 25 mg twice a day thyroid function tests is normal patient's refuse transferred to her residential Qualifiers: Chronicity: chronic (2) Cystitis Current Visit: Yes Status: Acute Plan: Klebsiella pneumonia isolated from the urine will place change roof bolter to Rocephin and later to Augmentin tomorrow no evidence of active ongoing sepsis Discharge Plan: Home Plan to discharge in: Greater than 2 days Physician Review Additional Text: Assessment Acute on chronic diastolic congestive heart failure with hypoxia and volume overload complicated with hypoventilation obesity syndrome Atrial fibrillation with rapid ventricular response UTI suspect ESBL, urine culture positive for Gram-negative rods Medical Debility and deconditioning COPD Hypertension Depression with anxiety Morbid obesity Plan Acute on chronic diastolic congestive heart failure with hypoxia and volume overload complicated with hypoventilation obesity syndrome: Case discussed with pulmonology. ABG to be checked. Pulmonology recommends to change diuretic therapy to Aldactone and Diamox. Patient may require BiPAP. Patient also with UTI. Patient afebrile. White count normal. Suspect ESBL. Blood culture positive likely contaminant. Discontinue Zosyn. Change to meropenem. Await culture results. Will discuss further with nephrology. Wound care to also evaluate breakdown to the lower extremity. Recheck chest x-ray tomorrow. Social work consulted to help with possible custodial facility placement at discharge. We need her condition to be better to have her work with physical therapy. Atrial fibrillation with rapid ventricular response: Continue with anti coagulation therapy. Continue metoprolol. Rate better controlled UTI suspect ESBL, urine culture positive for Gram-negative rods: IV Zosyn discontinued. Change to meropenem. Await urine culture results. Blood culture positive likely contaminant. Will monitor this closely. Medical Debility and deconditioning: Wound Care consulted. Patient will require physical therapy. Likely need skilled placement at discharge. COPD: Will provide medication. Case discussed with pulmonology. Continue with above plan of care. Hypertension: Continue metoprolol, obtain and continue other home medications as appropriate. Depression with anxiety: Obtain and continue home medications. Hold any medication with increase sedation. Morbid obesity: Discussed lifestyle changes.
[2020-03-17] MEDS: CEFTRIAXONE/SWI 1gm 1 GM/10 ML SYR IV SCH (14:34)
[2020-03-17] MEDS: APIXABAN 5 MG TABLET PO SCH (21:20)
[2020-03-17] MEDS: clonazePAM 1 MG TAB PO PRN (21:20)
[2020-03-18] MEDS: Oxycodone HCl/Acetaminophen 1 TAB TAB PO PRN ×4 (05:00→21:40)
[2020-03-18 05:11] LABS: Potassium 3.9 mmol/L (3.5-5.1)
[2020-03-18] MEDS: IPRATROPIUM BROM 0.5MG/2.5ML NEB PRN ×2 (08:40→20:00)
[2020-03-18] MEDS: ARFORMOTEROL TARTRATE 15 MCG/2 ML VIAL.NEB NEB SCH ×2 (08:40→20:00)
[2020-03-18] MEDS: JUVEN PACKET PO SCH ×2 (09:00→20:40)
[2020-03-18] MEDS: APIXABAN 5 MG TABLET PO SCH ×2 (09:05→20:39)
[2020-03-18] MEDS: CEFTRIAXONE/SWI 1gm 1 GM/10 ML SYR IV SCH (09:05)
[2020-03-18] MEDS: METOPROLOL TAR 50 MG TAB PO SCH ×2 (09:06→20:40)
[2020-03-18] MEDS: SPIRONOLACTONE 25 MG TABLET PO SCH ×2 (09:06→20:39)
[2020-03-18] MEDS: SERTRALINE HCL 100 MG TAB PO SCH (09:06)
[2020-03-18] MEDS: acetaZOLAMIDE 250 MG TAB PO SCH (09:06)
[2020-03-18] MEDS: PANTOPRAZOLE 40MG TABLET PO SCH (09:06)
--- NOTE | 2020-03-18 12:20 | P.PN ---
Subjective Date of Service: 03/18/20 Chief Complaint: Chronic respiratory failure Subjective: Improving (Patient is doing better or worse is unable to get up oxygenation is satisfactory) Review of Systems General: Weakness Respiratory: Shortness of Breath Physical Examination - Vital Signs Temperature: 97.4 F Blood Pressure: 122/83 Pulse: 86 Respirations: 18 Pulse Ox (%): 97 - Physical Exam General: Alert, Oriented x3 Neck: Supple Respiratory: Clear to auscultation bilaterally, Diminished Cardiovascular: Edema Gastrointestinal: Normal bowel sounds, Soft and benign - Studies Medications List Reviewed: Yes Assessment & Plan - Problems (Diagnosis) (1) Respiratory failure Current Visit: Yes Status: Acute Plan: Patient has chronic respiratory failure invasive and later was ordered patient is concerned about the high co-pay [place] the need to go to [facility] or LTAC. Will also try a physical therapy at home oxygenation satisfactory will plan for disc harge continue with spironolactone Qualifiers: Chronicity: chronic (2) Cystitis Current Visit: Yes Status: Acute Plan: Klebsiella pneumonia isolated from the urine will tire changer to Rocephin and later to Augmentin tomorrow no evidence of active ongoing sepsis plan to disch arge on Augmentin Physician Review Additional Text: Assessment Acute on chronic diastolic congestive heart failure with hypoxia and volume overload complicated with hypoventilation obesity syndrome Atrial fibrillation with rapid ventricular response UTI suspect ESBL, urine culture positive for Gram-negative rods Medical Debility and deconditioning COPD Hypertension Depression with anxiety Morbid obesity Plan Acute on chronic diastolic congestive heart failure with hypoxia and volume overload complicated with hypoventilation obesity syndrome: Case discussed with pulmonology. ABG to be checked. Pulmonology recommends to change diuretic therapy to Aldactone and Diamox. Patient may require BiPAP. Patient also with UTI. Patient afebrile. White count normal. Suspect ESBL. Blood culture positive likely contaminant. Discontinue Zosyn. Change to meropenem. Await culture results. Will discuss further with nephrology. Wound care to also evaluate breakdown to the lower extremity. Recheck chest x-ray tomorrow. Social work consulted to help with possible shelter facility placement at discharge. We need her condition to be better to have her work with physical therapy. Atrial fibrillation with rapid ventricular response: Continue with anti coagulation therapy. Continue metoprolol. Rate better controlled UTI suspect ESBL, urine culture positive for Gram-negative rods: IV Zosyn discontinued. Change to meropenem. Await urine culture results. Blood culture positive likely contaminant. Will monitor this closely. Medical Debility and deconditioning: Wound Care consulted. Patient will require physical therapy. Likely need skilled placement at discharge. COPD: Will provide medication. Case discussed with pulmonology. Continue with above plan of care. Hypertension: Continue metoprolol, obtain and continue other home medications as appropriate. Depression with anxiety: Obtain and continue home medications. Hold any medication with increase sedation. Morbid obesity: Discussed lifestyle changes.
[2020-03-18] MEDS: clonazePAM 1 MG TAB PO PRN (12:56)
--- NOTE | 2020-03-18 13:27 | RAD REPORT ---
EXAM DESCRIPTION: Chest Single View CLINICAL HISTORY: 9 years Female, PICC placement COMPARISON: Chest radiograph dated March 17, 2020 FINDINGS/IMPRESSION: Placement of right upper extremity PICC terminating at the cavoatrial junction. Bilateral interstitial opacities No pleural effusion. No pneumothorax. Cardiomegaly and interstitial edema. No acute osseous abnormality. Electronically signed by: Charles Crowell DO 03/18/2020 12:44 AM ACCOUNT SPECIALIST Due to temporary technical issues with the PACS/Fluency reporting system, reports are being signed by the in house radiologists without review as a courtesy to insure prompt reporting. The interpreting radiologist is fully responsible for the content of the report.
[2020-03-19] MEDS: clonazePAM 1 MG TAB PO PRN ×2 (01:44→17:25)
[2020-03-19] MEDS: MEDIHONEY 44 ML TOPICAL TUBE TOP SCH (06:00)
[2020-03-19] MEDS: ARFORMOTEROL TARTRATE 15 MCG/2 ML VIAL.NEB NEB SCH ×2 (09:11→21:15)
[2020-03-19] MEDS: APIXABAN 5 MG TABLET PO SCH ×2 (10:00→19:52)
[2020-03-19] MEDS: PANTOPRAZOLE 40MG TABLET PO SCH (10:00)
[2020-03-19] MEDS: SERTRALINE HCL 100 MG TAB PO SCH (10:00)
[2020-03-19] MEDS: acetaZOLAMIDE 250 MG TAB PO SCH (10:00)
[2020-03-19] MEDS: METOPROLOL TAR 50 MG TAB PO SCH ×2 (10:00→19:51)
[2020-03-19] MEDS: JUVEN PACKET PO SCH ×2 (10:01→19:52)
[2020-03-19] MEDS: SPIRONOLACTONE 25 MG TABLET PO SCH ×2 (10:01→19:51)
[2020-03-19] MEDS: CEFTRIAXONE/SWI 1gm 1 GM/10 ML SYR IV SCH (10:02)
[2020-03-19] MEDS: Oxycodone HCl/Acetaminophen 1 TAB TAB PO PRN ×3 (10:08→19:49)
--- NOTE | 2020-03-19 10:58 | P.PN ---
Subjective Date of Service: 03/19/20 Chief Complaint: Chronic respiratory failure Subjective: Improving (Patient is doing well states that she is unable to walk refuse noninvasive ventilator) Review of Systems General: Weakness Respiratory: Shortness of Breath Physical Examination - Vital Signs Temperature: 97.0 F Blood Pressure: 124/66 Pulse: 82 Respirations: 16 Pulse Ox (%): 91 - Physical Exam General: Alert, Oriented x3 Respiratory: Clear to auscultation bilaterally, Diminished Cardiovascular: Edema Gastrointestinal: Normal bowel sounds, Soft and benign - Studies Medications List Reviewed: Yes Assessment & Plan - Problems (Diagnosis) (1) Respiratory failure Current Visit: Yes Status: Acute Plan: Chronic respiratory failure doing well diffuse noninvasive ventilator will need an outpatient sleep study labs chemistries all reviewed contact social media assistant to decide further disposition patient refused care home will consider [facility] for long-term rehab facility the was discharged back to home with home health Qualifiers: Chronicity: chronic (2) Cystitis Current Visit: Yes Status: Acute Plan: Change to p.o. Augmentin
[2020-03-19] MEDS: AMOX/K CLAV 500 MG TAB PO SCH (19:50)
[2020-03-20] MEDS: Oxycodone HCl/Acetaminophen 1 TAB TAB PO PRN ×4 (03:23→19:58)
[2020-03-20] MEDS: clonazePAM 1 MG TAB PO PRN (06:45)
[2020-03-20] MEDS: SPIRONOLACTONE 25 MG TABLET PO SCH ×2 (08:31→19:59)
[2020-03-20] MEDS: APIXABAN 5 MG TABLET PO SCH ×2 (08:31→19:59)
[2020-03-20] MEDS: acetaZOLAMIDE 250 MG TAB PO SCH (08:31)
[2020-03-20] MEDS: AMOX/K CLAV 500 MG TAB PO SCH ×2 (08:31→19:59)
[2020-03-20] MEDS: SERTRALINE HCL 100 MG TAB PO SCH (08:32)
[2020-03-20] MEDS: METOPROLOL TAR 50 MG TAB PO SCH ×2 (08:32→19:58)
[2020-03-20] MEDS: PANTOPRAZOLE 40MG TABLET PO SCH (08:32)
[2020-03-20] MEDS: MEDIHONEY 44 ML TOPICAL TUBE TOP SCH (08:33)
[2020-03-20] MEDS: JUVEN PACKET PO SCH ×2 (08:33→20:00)
[2020-03-20] MEDS: IPRATROPIUM BROM 0.5MG/2.5ML NEB PRN (09:15)
[2020-03-20] MEDS: ARFORMOTEROL TARTRATE 15 MCG/2 ML VIAL.NEB NEB SCH (09:15)
--- NOTE | 2020-03-20 10:47 | P.PN ---
Subjective Date of Service: 03/20/20 Chief Complaint: Chronic respiratory failure Subjective: Improving (Patient is doing well back to her baseline) Review of Systems General: Weakness Respiratory: Shortness of Breath Physical Examination - Vital Signs Temperature: 97 F Blood Pressure: 116/61 Pulse: 61 Respirations: 20 Pulse Ox (%): 99 - Physical Exam General: Alert, Oriented x3 Respiratory: Clear to auscultation bilaterally Cardiovascular: Edema - Studies Medications List Reviewed: Yes Assessment & Plan - Problems (Diagnosis) (1) Respiratory failure Current Visit: Yes Status: Acute Plan: Chronic stable respiratory failure placement in any he is in a shoe patient does not want to go back home right now wants to be referred to [facility] for rehab he is unable to walk/the refuse noninvasive positive pressure ventilation discuss with social work tomorrow consider home health with physical therapy otherwise patient is on p.o. Augmentin Qualifiers: Chronicity: chronic (2) Cystitis Current Visit: Yes Status: Acute Plan: Change to p.o. Augmentin Physician Review Additional Text: Assessment Acute on chronic diastolic congestive heart failure with hypoxia and volume overload complicated with hypoventilation obesity syndrome Atrial fibrillation with rapid ventricular response UTI suspect ESBL, urine culture positive for Gram-negative rods Medical Debility and deconditioning COPD Hypertension Depression with anxiety Morbid obesity Plan Acute on chronic diastolic congestive heart failure with hypoxia and volume overload complicated with hypoventilation obesity syndrome: Case discussed with pulmonology. ABG to be checked. Pulmonology recommends to change diuretic therapy to Aldactone and Diamox. Patient may require BiPAP. Patient also with UTI. Patient afebrile. White count normal. Suspect ESBL. Blood culture positive likely contaminant. Discontinue Zosyn. Change to meropenem. Await culture results. Will discuss further with nephrology. Wound care to also evaluate breakdown to the lower extremity. Recheck chest x-ray tomorrow. Social work consulted to help with possible [facility] facility placement at discharge. We need her condition to be better to have her work with physical therapy. Atrial fibrillation with rapid ventricular response: Continue with anti coagulation therapy. Continue metoprolol. Rate better controlled UTI suspect ESBL, urine culture positive for Gram-negative rods: IV Zosyn discontinued. Change to meropenem. Await urine culture results. Blood culture positive likely contaminant. Will monitor this closely. Medical Debility and deconditioning: Wound Care consulted. Patient will require physical therapy. Likely need skilled placement at discharge. COPD: Will provide medication. Case discussed with pulmonology. Continue with above plan of care. Hypertension: Continue metoprolol, obtain and continue other home medications as appropriate. Depression with anxiety: Obtain and continue home medications. Hold any medic ation with increase sedation. Morbid obesity: Discussed lifestyle changes.
--- NOTE | 2020-03-20 11:14 | CON ---
Date of Consultation: 03/15/[address] Aguilera on 03/14/2020. I saw the patient on 03/15/2020. Reason For Consultation: Congestive heart failure. History Of Present Illness: Ms. 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 She was hypotensive. Chest x-ray shows possible congestive heart failure. She denied an y chest pain, nausea, vomiting, or diaphoresis. Denied any fever or chills. Has had PND, orthopnea, and pedal edema. Past Medical History: As stated above. Allergies: SHE IS ALLERGIC TO CIPROFLOXACIN, FLAGYL, MORPHINE, AND PHENOBARBITAL. Medications: At home include potassium, Nexium, Lasix, lisinopril, and metoprolol. Physical Examination: Vital Signs: Heart rate was 113, atrial fibrillation. No fever. Blood pressure was 93/51. General: She is alert and oriented x3. HEENT: Negative. Neck: Supple with no bruit. Chest: Revealed rales both bases. Cardiac: Revealed atrial fibrillation. Abdomen: Obese. Extremities: Revealed 2+ edema to the knee. Neurological: She was alert and oriented x2. Pulses were present distally bilaterally. Skin: Moist. Diagnostic Data: As stated earlier. Impression And Plan: 1.Acute on chronic diastolic congestive heart failure. Echocardiogram is pending. 2.Chronic atrial fibrillation. The patient is not on anticoagulation as she should be. I will leav e that up to Dr. Aguilera. 3.Anxiety. 4.Asthma and chronic obstructive pulmonary disease. 5.Hypertension, now hypotensive. 6.Attention deficit disorder. 7.Urinary tract infection and possible sepsis. The patient now is on Lovenox and metoprolol and nee ds to be diuresed. We should also treat her for chronic obstructive pulmonary disease, possible bron chitis, to be treated for her urinary tract infection. We have to be careful with her heart rate and blood pressure. If she remains hypotensive, we should consider a cardioversion. I think Pulmonary should be called as well as echo should be done soon and anticoagulation should be started. We will continue to follow her as needed. TASNEEM/LUIS MIGUEL Voice ID: [id number] Report ID: [id number]
--- NOTE | 2020-03-20 11:38 | PN ---
Date of Progress Note: 03/16/2020 came in with a large pleural effusion, congestive heart failure on 03/14/2020. I saw her on 03/15/2020. Pulmonary consultation has been obtained. Apparently, the effusion is not going to be left alone for this at this point. The patient is being treated with bronchodilators, predniso ne, antibiotics. The plan for home oxygen, diuresis continues. Her TSH was 25 and that needs to be treated with increase of her Synthroid dose. She remains in atrial fibrillation and diastolic conges tive heart failure, coronary artery disease, hypertension, diabetes, and dyslipidemia. All of which are stable at this point. Anticoagulation should be considered. Case was discussed with Dr. Nickerson. We will sign off her case for now. I will be happy to see her as an outpatient. TASNEEM/LUIS MIGUEL Voice ID: [id number] Report ID: [id number]
[2020-03-20 14:53] VITALS: O2SAT 98
[2020-03-20 18:43] VITALS: TEMP 98
[2020-03-20 20:00] VITALS: BP 118/70
--- NOTE | 2020-04-20 12:00 | P.DS ---
Admission Date: 03/14/20 Discharge Date: 04/20/20 [facility] Discharge Condition: FAIR Reason for Admission: Chronic respiratory failure - Problems (1) Respiratory failure Status: Acute Qualifiers: Chronicity: chronic (2) Cystitis Status: Acute Brief History of Present Illness: Patient is 69 years of age morbidly obese the triple medical problems admitted to the emergency room with worsening dyspnea lower extremity edema this morning she was hypoxic of breath patient also has in AFib cade virus negative mildly elevated bicarbonate patient does not smoke Hospital Course: Please see the progress note patient was discharge to a long-term care facility she has chronic respiratory failure and acute over the problem stable at the time of discharge chronic respiratory failure labs reviewed urine culture shows Klebsiella pneumonia which was sensitive patient is very debilitated at baseline Vital Signs/Physical Exam: Temp Pulse Resp BP Pulse Ox 98 F 83 20 118/70 98 03/20/20 16:00 03/20/20 19:59 03/20/20 16:00 03/20/20 19:59 03/20/20 16:00 Laboratory Data at Discharge: WBC 8.1 K/uL (4.3-10.9) D 03/17/20 04:01 Hgb 11.4 g/dL (12.0-15.0) L 03/17/20 04:01 Hct 36.2 % (36.0-45.0) 03/17/20 04:01 Plt Count 223 K/uL (152-406) 03/17/20 04:01 PT 12.1 SECONDS (9.5-12.5) 03/14/20 17:07 INR 1.03 03/14/20 17:07 Sodium 143 mmol/L (136-145) 03/20/20 08:45 Potassium 4.0 mmol/L (3.5-5.1) 03/20/20 08:45 BUN 14 mg/dL (7-18) 03/20/20 08:45 Creatinine 0.68 mg/dL (0.55-1.3) 03/20/20 08:45 Glucose 128 mg/dL (74-106) H 03/20/20 08:45 Magnesium 1.9 mg/dL (1.8-2.4) 03/17/20 04:01 Total Bilirubin 0.2 mg/dL (0.2-1.0) 03/14/20 17:07 AST 14 U/L (15-37) L 03/14/20 17:07 ALT 11 U/L (12-78) L 03/14/20 17:07 Alkaline Phosphatase 79 U/L (45-117) 03/14/20 17:07 Troponin I < 0.02 ng/mL (0.0-0.045) 03/15/20 05:00 Triglycerides 112 mg/dL (<150) 03/15/20 05:50 Cholesterol 130 mg/dL (<200) 03/15/20 05:50 HDL Cholesterol 54 mg/dL (40-60) 03/15/20 05:50 Cholesterol/HDL Ratio 2.41 03/15/20 05:50 Home Medications: Esomeprazole Magnesium 40 mg PO DAILY 11/03/19 Fluconazole 200 mg PO SEECOM 11/03/19 Furosemide [Lasix*] 40 mg PO BIDL 11/03/19 Lisinopril [Zestril] 40 mg PO DAILY 11/03/19 Metoprolol Succinate [Toprol Xl*] 50 mg PO DAILY 11/03/19 Nitrofuran Macro [Macrobid*] 1 tab PO BID 11/03/19 Sertraline HCl 2 tab PO DAILY 11/03/19 clonazePAM [Clonazepam] 1 mg PO BIDP PRN 11/03/19 hydrOXYzine pamoate [Hydroxyzine Pamoate] 25 mg PO BID 11/03/19 Pantoprazole [Protonix Tab*] 40 mg PO DAILY #30 tab 11/06/19 Potassium Chloride [K-Dur] 10 meq PO DAILY #30 tab.er.prt 11/06/19 Gabapentin [Neurontin] 400 mg PO TID 03/15/20 Ondansetron HCl [Zofran] 4 mg PO DAILY 03/15/20 Oxycodone HCl/Acetaminophen [Oxycodone-Acetaminophen 10-325] 1 each PO Q4H 03/15/20 Followup: Unknown,U [Primary Care Provider] -
== END 2020-03-20 22:15 | DRG 291 ==
LOC: ER 15:52 → ERHOLD 20:28 → 2ND 22:20
PROVIDERS: ADMIT Family Medicine; ATTEND Internal Medicine Sleep Medicine
PROC: 5A09557 Assistance with Respiratory Ventilation, Greater than 96 Consecutive Hours, Continuous Positive Airway Pressure (ICD-10-PCS; 2020-03-16)
PROC: 02HV33Z Insertion of Infusion Device into Superior Vena Cava, Percutaneous Approach (ICD-10-PCS; principal; 2020-03-17)
DX: I11.0 Hypertensive heart disease with heart failure (principal); J96.22 Acute and chronic respiratory failure with hypercapnia; J96.21 Acute and chronic respiratory failure with hypoxia; Z68.45 Body mass index [BMI] 70 or greater, adult; E66.2 Morbid (severe) obesity with alveolar hypoventilation; N30.00 Acute cystitis without hematuria; I48.20 Chronic atrial fibrillation, unspecified; I50.33 Acute on chronic diastolic (congestive) heart failure; E78.5 Hyperlipidemia, unspecified; K21.9 Gastro-esophageal reflux disease without esophagitis; F41.8 Other specified anxiety disorders; I25.10 Atherosclerotic heart disease of native coronary artery without angina pectoris; F98.8 Other specified behavioral and emotional disorders with onset usually occurring in childhood and adolescence; F17.200 Nicotine dependence, unspecified, uncomplicated; J44.9 Chronic obstructive pulmonary disease, unspecified; B96.1 Klebsiella pneumoniae [K. pneumoniae] as the cause of diseases classified elsewhere; R53.81 Other malaise; Z91.14 Patient's other noncompliance with medication regimen; Z88.1 Allergy status to other antibiotic agents; Z88.5 Allergy status to narcotic agent; Z88.8 Allergy status to other drugs, medicaments and biological substances; Z79.899 Other long term (current) drug therapy; Z85.828 Personal history of other malignant neoplasm of skin; Z99.81 Dependence on supplemental oxygen; Z90.710 Acquired absence of both cervix and uterus; Z20.828 Contact with and (suspected) exposure to other viral communicable diseases
CPT/HCPCS: 36415; 36569; 51702; 71045; 80048; 80061; 80076; 81003; 82805; 82947; 83735; 83880; 84145; 84439; 84443; 84484; 85025; 85610; 87040; 87077; 87086; 87088; 87186; 87205; 93005; 93306; 94640; 94660; 94760; 96374; 97110; 97112; 97161; 99251; 99285; J0696; J1650; J1940; J2185; J2405; J2543; J7605; U0003

== ENCOUNTER 2021-02-24 13:08 | Inpatient (IN) | payer OTHER ==
--- OUTSIDE RECORDS SUMMARY | 2021-02-24 13:11 | XMS REPORT | Continuity of Care Document ---
:1950 Author Organization [facility] t Address [facility] [place] [address] Care Team Providers Name Role Phone LUPE Attending Clinician Unavailable DR Harley KINNEY Attending Clinician Unavailable AMELIA Admitting Clinician Unavailable DR Harley KINNEY Admitting Clinician Unavailable Payers Payer Name Policy Type Policy Number Effective Date Expiration Date S ource Problems This patient has no known problems. Allergies, Adverse Reactions, Alerts Allergy Allergy Status Severity Reaction(s) Onset Inactive Treating Comm ents Source Name Type Date Date Clinician CIPRO Allergy Active [facility] 03-31 23:20: 56 CIPRO Allergy Active [facility] 07 23:20: 56 AMITRIPT Allergy Active [facility] YLINE - 23:20: 43 AMITRIPT Allergy Active [facility] YLINE 03-31 23:20: 43 MORPHINE Allergy Active [facility] 07 23:20: 30 MORPHINE Allergy Active ENCGEN -07 23:20: 30 PHENOBAR Allergy Active [facility] BITAL - 23:20: 12 PHENOBAR Allergy Active E[facility]GEN BITAL - 23:20: 12 METRONID Allergy Active [facility] AZOLE - 23:20: 01 METRONID Allergy Active [facility] AZOLE 03-31 23:20: 01 Medications This patient has no known medications. Procedures This patient has no known procedures. Encounters Start End Encounter Admission Attending Care Care Encounter Source Date/Time Date/Time Type Type Clinicians Facility Department ID 2020-03-31 2020-04-01 Outpatient READMIGELA SOSAGEN [id number] [facility] 00:00:00 00:00:00 Mike GARCIA 2020-03-22 2020-03-22 Outpatient C NIRMAL [facility] RAD [id number] [facility] 14:58:00 23:59:00 [facility] Results This patient has no known results.
[2021-02-24 14:26] LABS: Absolute Lymphocytes (CBC) 2.6 K/uL (0.7-4.9); Basophils % 1.1 % (0-1.3); Hematocrit 45.2 % (36.0-45.0); Lymphocytes % 23.2 % (15.3-44.8); MPV 7.7 fL (7.6-11.3); RBC Red Blood Cell Count 5.11 M/uL (3.86-4.86)
[2021-02-24 14:42] LABS: Protime INR 1.06
[2021-02-24 14:46] LABS: ALT/SGPT 22 U/L (12-78); AST/SGOT 26 U/L (15-37); Albumin 2.6 g/dL (3.4-5.0); Alkaline Phosphatase 106 U/L (45-117); Amylase 37 U/L (25-115); BUN Blood Urea Nitrogen 17 mg/dL (7-18); Bicarbonate 33 mmol/L (21-32); Bilirubin Direct < 0.1 mg/dL (0-0.2); Bilirubin Total 0.3 mg/dL (0.2-1.0); Creatine Phosphokinase 36 U/L (26-192); Glucose Level 90 mg/dL (74-106); Lipase 33 U/L (73-393); Protein, Total 6.4 g/dL (6.4-8.2); Sodium Level 142 mmol/L (136-145); Troponin (Emerg Dept Use Only) < 0.02 ng/mL (0.0-0.045)
--- NOTE | 2021-02-24 15:16 | RAD REPORT ---
EXAM DESCRIPTION: RAD - Chest Single View - 02/24/2021 3:03 pm CLINICAL HISTORY: COPD COMPARISON: Portable March 2019 TECHNIQUE: AP portable chest image was obtained 02/24/2021 3:03 pm . FINDINGS: Lung volumes are very low. Low lung volumes, large body habitus and under penetrated jason ble technique accentuate heart, vasculature and lung markings. No peripheral mass or consolidations s een. Early interstitial edema or infiltrate could be masked in this setting. Heart and vasculature ar e normal. No measurable pleural effusion and no pneumothorax. No acute bony abnormality seen. No acut e aortic findings suspected. IMPRESSION: Limited portable study with no peripheral mass or consolidation. Above detailed limitations could mask early edema or infiltrate.
[2021-02-24 15:25] LABS: Urine Blood Trace-intact (Negative); Urine Glucose Negative (Negative); Urine Protein Negative (Negative); Urine Specific Gravity >=1.030 (1.005-1.030); Urine pH 5.5 (5.0-7.0)
--- NOTE | 2021-02-24 15:28 | ER ---
Nurse's Notes [facility] Name: Amy Velasquez Age: 70 yrs Sex: Female : 1950 Arrival Date: 02/24/2021 Time: 13:09 Bed 18 Private MD: Diagnosis: Unspecified combined systolic (congestive) and diastolic (congestive) heart failure;COPD/ Chronic obstructive pulmonary disease with (acute) exacerbation;Hypoxemia Presentation: 02/24 13:16 Chief complaint: EMS states: SOB SINCE THANKSGI, WORSE TODAY. Coronavirus screen: bp cough unrelated to allergies, shortness of breath, Client presents with at least one sign or symptom that may indicate coronavirus-19. Standard/surgical mask placed on the client. Provider contacted for isolation considerations. Ebola Screen: No symptoms or risks identified at this time. Initial Sepsis Screen: Does the patient meet any 2 criteria? HR > 90 bpm. No. Patient's initial sepsis screen is negative. Does the patient have a suspected source of infection? No. Patient's initial sepsis screen is negative. Risk Assessment: Do you want to hurt yourself or someone else? Patient reports no desire to harm self or others. Onset of symptoms is unknown. Care prior to arrival: Glucose check: 77. 13:16 Method Of Arrival: EMS: [facility] bp 13:16 Acuity: BHARTI 2 bp Triage Assessment: 13:19 General: Appears distressed, uncomfortable, obese, unkempt, Behavior is cooperative, bp appropriate for age, agitated, anxious. Pain: Denies pain. EENT: No deficits noted. Neuro: Level of Consciousness is awake, alert, obeys commands, Oriented to Appropriate for age. Cardiovascular: Rhythm is sinus tachycardia. Respiratory: Reports shortness of breath cough that is labored breathing Airway is patent Respiratory effort is labored, Respiratory pattern is tachypnea. GI: Abdomen is obese. : No signs and/or symptoms were reported regarding the genitourinary system. Derm: No deficits noted. Musculoskeletal: Swelling present in right leg and left leg. Historical: - Allergies: 13:19 Morphine (rash, Itching); bp 13:19 Phenobarbital; bp 13:19 Cipro; bp 13:19 Amitriptyline; bp - Home Meds: 13:19 furosemide 20 mg Oral tab 1 tab once daily [Active]; metoprolol tartrate 50 mg Oral tab bp 1 tab once daily [Active]; oxycodone-acetaminophen 10-325 mg Oral tab 1 tab every 6 hours for Pain [Active]; sertraline 50 mg Oral tab 3 tabs once daily [Active]; - PMHx: 13:19 ADD/ADHD; Anxiety; Asthma; Atrial Fib; CANCER, SKIN; CHF; COPD; Hernia; Hypertension; bp Degenerative disc disease; - Immunization history:: Client reports having NOT received the Covid vaccine. - Social history:: Smoking status: Patient reports the use of cigarette tobacco products, unknown amount. - Family history:: not pertinent. - Hospitalizations: : No recent hospitalization is reported. Screenin:19 Abuse screen: Denies threats or abuse. Denies injuries from another. Nutritional bp screening: No deficits noted. Tuberculosis screening: No symptoms or risk factors identified. Fall Risk None identified. Assessment: 13:19 General: SEE TRIAGE NOTE. bp 14:28 Reassessment: No changes from previously documented assessment. Patient and/or family bp updated on plan of care and expected duration. Pain level reassessed. UOP PENDING. 16:20 Reassessment: No changes from previously documented assessment. Patient and/or family bp updated on plan of care and expected duration. Pain level reassessed. ADMIT IN PROCESS. 17:13 Reassessment: No changes from previously documented assessment. Patient and/or family bp updated on plan of care and expected duration. Pain level reassessed. ADMIT IN PROCESS. 18:00 Reassessment: No changes from previously documented assessment. Patient and/or family bp updated on plan of care and expected duration. Pain level reassessed. BED ASSIGNED. ADMIT ON HOLD FOR COVID RESULTS. Vital Signs: 13:16 BP 107 / 77; Pulse 129; Resp 32; Temp 97.5; Pulse Ox 85% on R/A; Weight 158.76 kg; bp 14:27 BP 101 / 59; Pulse 91; Resp 13; Pulse Ox 100% on 4 lpm NC; bp 16:20 BP 90 / 31; Pulse 100; Resp 13; Pulse Ox 100% ; bp 17:00 BP 106 / 67; Pulse 115; Resp 9; Pulse Ox 97% on 4 lpm NC; bp 18:00 BP 94 / 67; Pulse 121; Resp 18; Pulse Ox 95% ; bp ED Course: 13:[address] [facility] 13:15 Tanvir Alvarez, RN is Primary Nurse. bp 13:19 Triage completed. bp 13:19 Arm band placed on. bp 13:19 Patient has correct armband on for positive identification. Placed in gown. Bed in low bp position. Call light in reach. Side rails up X2. 13:22 Francis Mcintyre MD is Attending Physician. rn 13:59 case monitor on. Pulse ox on. NIBP on. mh5 13:59 Missed attempt(s): 24 gauge in left hand. forearm. antecubital area. 5 14:00 EKG done, by ED staff, reviewed by Francis Mcintyre MD. 5 14:12 First set of blood cultures drawn by me. kv1 14:15 Initial lab(s) drawn, by me, sent to lab. Inserted saline lock: 20 gauge in left iw antecubital area, using aseptic technique. Blood collected. 14:26 Inserted saline lock: 24 gauge in right hand, using aseptic technique. kv1 14:49 Blood Culture Adult (2) Sent. kv1 14:49 Lactate Sent. kv1 14:49 Procalcitonin Sent. kv1 14:50 Amylase, Serum Sent. kv1 15:03 Chest Single View XRAY In Process Unspecified. EDMS 15:25 Song cath inserted, using sterile technique, 16 Fr., by ny, to gravity drainage, urine kv1 specimen collected. 15:26 Urine Microscopic Only Sent. kv1 15:27 Danielle Marley MD is Hospitalizing Provider. rn 17:52 COVID-19 SARS RT PCR (Document "Date of Onset" if Symptomatic) Sent. bp 19:53 Primary Nurse role handed off by Tanvir Alvarez, RN mw2 Administered Medications: 13:23 CANCELLED (Physician Discretion): NS 0.9% (30 ml/kg) 30 ml/kg IV at bolus once; Sepsis bp Protocol Outcome: 15:28 Decision to Hospitalize by Provider. rn 20:18 Patient left the ED. ld1 Signatures: Dispatcher [employer] EDMS Molly Mcdaniel RN RN Francis Mcintyre MD MD rn Martinez, Maria 5 Tanvir Alvarez, RN RN Chadwick Rodrigez mw2 Jen Vanessa RN RN ld1 Umer Broussard kv1
--- NOTE | 2021-02-24 15:29 | EDPHYS ---
Physician Documentation [facility] Name: Amy Velasquez Age: 70 yrs Sex: Female : 1950 Arrival Date: 02/24/2021 Time: 13:09 Bed 18 Private MD: ED Physician Francis Mcintyre HPI: 02/24 14:11 This 70 yrs old Female presents to ER via EMS with complaints of Shortness of breath. rn 14:11 The patient has shortness of breath at rest, with light activity. Onset: The rn symptoms/episode began/occurred 2 week(s) ago. The patient's shortness of breath is aggravated by exertion, light activity, supine position, talking. Associated signs and symptoms: Pertinent positives: non-productive cough, Pertinent negatives: fever, hemoptysis. Severity of symptoms: At their worst the symptoms were moderate in the emergency department the symptoms are unchanged. The patient has experienced similar episodes in the past. The patient has not recently seen a physician. Patient reports for the last 1 to 2 weeks has been having increased shortness of breath with cough. Reports feels like needs more oxygen. Also reports increased swelling to legs and generalized weakness. No fever. No hemoptysis.. Historical: - Allergies: 13:19 Morphine (rash, Itching); bp 13:19 Phenobarbital; bp 13:19 Cipro; bp 13:19 Amitriptyline; bp - Home Meds: 13:19 furosemide 20 mg Oral tab 1 tab once daily [Active]; metoprolol tartrate 50 mg Oral tab bp 1 tab once daily [Active]; oxycodone-acetaminophen 10-325 mg Oral tab 1 tab every 6 hours for Pain [Active]; sertraline 50 mg Oral tab 3 tabs once daily [Active]; - PMHx: 13:19 ADD/ADHD; Anxiety; Asthma; Atrial Fib; CANCER, SKIN; CHF; COPD; Hernia; Hypertension; bp Degenerative disc disease; - Immunization history:: Client reports having NOT received the Covid vaccine. - Social history:: Smoking status: Patient reports the use of cigarette tobacco products, unknown amount. - Family history:: not pertinent. - Hospitalizations: : No recent hospitalization is reported. ROS: 14:11 Constitutional: Negative for fever, chills, and weight loss, Eyes: Negative for injury, rn pain, redness, and discharge, Neck: Negative for injury, pain, and swelling, Cardiovascular: Negative for chest pain, positive for edema Respiratory: Positive for shortness of breath and cough Abdomen/GI: Negative for abdominal pain, nausea, vomiting, diarrhea, and constipation, : Negative for injury, bleeding, discharge, and swelling, MS/Extremity: Negative for injury and deformity, Skin: Negative for injury, rash, and discoloration, Neuro: Positive for generalized weakness Exam: 14:11 Constitutional: Obese female with moderate tachypnea Head/Face: Normocephalic, rn atraumatic. Eyes: Periorbital areas with no swelling, redness, or edema. Cardiovascular: Tachycardic, irregular. No pulse deficits. Respiratory: Moderate tachypnea, diminished at bases Abdomen/GI: Soft, nontender. Mild erythema and fluid about umbilicus without fluctuance Skin: Warm, dry MS/ Extremity: Pulses equal, no cyanosis. 2+ pitting edema bilateral lower extremity Neuro: Awake and alert, GCS 15 14:42 ECG was reviewed by the Attending Physician. rn Vital Signs: 13:16 BP 107 / 77; Pulse 129; Resp 32; Temp 97.5; Pulse Ox 85% on R/A; Weight 158.76 kg; bp 14:27 BP 101 / 59; Pulse 91; Resp 13; Pulse Ox 100% on 4 lpm NC; bp 16:20 BP 90 / 31; Pulse 100; Resp 13; Pulse Ox 100% ; bp 17:00 BP 106 / 67; Pulse 115; Resp 9; Pulse Ox 97% on 4 lpm NC; bp 18:00 BP 94 / 67; Pulse 121; Resp 18; Pulse Ox 95% ; bp MDM: 13:22 Patient medically screened. rn 15:26 Differential diagnosis: Bronchitis CHF exacerbation, Chronic Obstructive Pulmonary rn Disease Myocardial Infarction pneumonia, Pneumothorax pulmonary edema. Data reviewed: vital signs, nurses notes, lab test result(s), EKG, radiologic studies, plain films, and as a result, I will admit patient. Data interpreted: satellite project site monitor: rate is 91 beats/min, rhythm is normal sinus rhythm, regular, with no ectopy, Interpretation: normal rate, normal rhythm, Pulse oximetry: on room air is 85 %. Interpretation: hypoxia. Counseling: I had a detailed discussion with the patient and/or guardian regarding: the historical points, exam findings, and any diagnostic results supporting the discharge/admit diagnosis, lab results, radiology results, the need for further work-up and treatment in the hospital. Response to treatment: the patient's symptoms have mildly improved after treatment, and as a result, I will admit patient. Admission orders: after a detailed discussion of the patient's condition and case, the admit orders are written by me. 02/24 13:16 Order name: Amylase, Serum bp 02/24 13:16 Order name: Basic Metabolic Panel; Complete Time: 15:16 bp 02/24 13:16 Order name: Blood Culture Adult (2) bp 02/24 13:16 Order name: CBC with Diff; Complete Time: 15:16 bp 02/24 13:16 Order name: CPK; Complete Time: 15:16 bp 02/24 13:16 Order name: Ckmb; Complete Time: 15:16 bp 02/24 13:16 Order name: LFT's; Complete Time: 15:16 bp 02/24 13:16 Order name: Lactate; Complete Time: 15:16 bp 02/24 13:16 Order name: Lipase; Complete Time: 15:16 bp 02/24 13:16 Order name: Procalcitonin; Complete Time: 15:16 bp 02/24 13:16 Order name: Protime (+inr); Complete Time: 15:16 bp 02/24 13:16 Order name: Ptt, Activated; Complete Time: 15:16 bp 02/24 13:16 Order name: Troponin (emerg Dept Use Only); Complete Time: 15:16 bp 02/24 13:16 Order name: Urine Microscopic Only; Complete Time: 16:11 bp 02/24 13:17 Order name: Amylase; Complete Time: 15:16 EDMS 02/24 15:25 Order name: Urine Dipstick-Ancillary; Complete Time: 16:11 EDMS 02/24 16:55 Order name: Comprehensive Metabolic Panel EDMS 02/24 16:55 Order name: Comprehensive Metabolic Panel EDOH 02/24 16:55 Order name: Magnesium EDMS 02/24 16:55 Order name: Magnesium EDMS 02/24 16:55 Order name: NT PRO-BNP EDMS 02/24 16:55 Order name: NT PRO-BNP EDMS 02/24 16:55 Order name: Phosphorus EDOH 02/24 16:55 Order name: Phosphorus EDMS 02/24 16:55 Order name: Troponin I EDMS 02/24 16:55 Order name: Troponin I EDMS 02/24 16:56 Order name: CBC with Automated Diff EDMS 02/24 16:56 Order name: CBC with Automated Diff EDMS 02/24 17:17 Order name: COVID-19 SARS RT PCR (Document "Date of Onset" if Symptomatic) eb 02/24 13:16 Order name: Chest Single View XRAY; Complete Time: 15:17 bp 02/24 13:16 Order name: Accucheck; Complete Time: 13:49 bp 02/24 13:16 Order name: Cardiac monitoring; Complete Time: 13:49 bp 02/24 13:16 Order name: EKG - Nurse/Tech; Complete Time: 13:49 bp 02/24 13:16 Order name: IV Saline Lock - Large Bore; Complete Time: 14:28 bp 02/24 13:16 Order name: Labs collected and sent; Complete Time: 14:28 bp 02/24 13:16 Order name: O2 Per Protocol; Complete Time: 13:49 bp 02/24 13:16 Order name: O2 Sat Monitoring; Complete Time: 13:49 bp 02/24 13:16 Order name: Urine Dipstick-Ancillary (obtain specimen); Complete Time: 15:26 bp 02/24 16:55 Order name: Heart Healthy EDOH 02/24 18:50 Order name: SARS-COV-2 RT PCR; Complete Time: 19:54 EDMS EC:42 Rate is 111 beats/min. Rhythm is irregularly irregular. QRS [place] is Normal. ME interval rn is normal. QRS interval is normal. QT interval is normal. No Q waves. T waves are Normal. No ST changes noted. Clinical impression: Atrial Fibrillation. Interpreted by me. Reviewed by me. Administered Medications: 13:23 CANCELLED (Physician Discretion): NS 0.9% (30 ml/kg) 30 ml/kg IV at bolus once; Sepsis bp Protocol Disposition Summary: 02/24/21 15:28 Hospitalization Ordered Hospitalization Status: Inpatient Admission rn Provider: Danielle Marley rn Location: Telemetry/MedSurg (Inpatient) rn Condition: Stable rn Problem: an acute exacerbation rn Symptoms: have improved rn Bed/Room Type: Standard rn Room Assignment: 209(02/24/21 17:18) eb Diagnosis - Unspecified combined systolic (congestive) and diastolic (congestive) heart failure rn - COPD/ Chronic obstructive pulmonary disease with (acute) exacerbation rn - Hypoxemia rn Forms: - Medication Reconciliation Form rn - SBAR form rn Signatures: Dispatcher [employer] EDYou Monge MD MD cha Nieto, Roman, MD MD rn Peltier, Brian, Maira Carlton RN Corrections: (The following items were deleted from the chart) 13:23 13:16 NS 0.9% (30 ml/kg) 30 ml/kg IV at bolus once; Sepsis Protocol ordered. bp bp 17:18 15:28 rn eb
[2021-02-24 16:01] LABS: Urine Amorphous Sediment TRACE /HPF (NONE SEEN); Urine Bacteria <20 /HPF (<20); Urine Mucus 2+ /HPF (NONE SEEN); Urine RBC <5 /HPF (NONE SEEN)
[2021-02-24] MEDS ORDERED: ALBUTEROL 2.5 MG/3 ML NEB SOL NEB PRN (16:51)
[2021-02-24] MEDS ORDERED: ONDANSETRON 4 MG/2 ML VIAL IV PRN (16:51)
--- NOTE | 2021-02-24 17:07 | P.HP ---
Certification for Inpatient Patient admitted to: Inpatient With expected LOS: >2 Midnights Patient will require the following post-hospital care: None Practitioner: I am a practitioner with admitting privileges, knowledge of patient current condition, hospital course, and medical plan of care. Services: Services provided to patient in accordance with Admission requirements found in Title 42 Section 412.3 of the Code of Federal Regulations Patient History Date of Service: 02/24/21 Reason for admission: Acute CHF exacerbation, diastolic; Acute COPD exacerbation History of Present Illness: Patient is a 70-year-old female came to the hospital with shortness of breath. Patient has a longstanding history of COPD, morbid obesity, chronic pain, and diastolic heart failure. Patient also with generalized weakness which is worsened by her morbid obesity. Patient was short of breath. She was noted to be more weak than she normally has. She has noticed some swelling in her lower extremities. She has recurrent admissions and has been in rehab for her weakness as well. She has a hard time getting out of bed. Her family has to do maximum assistance. Will get physical therapy evaluation. She will be admitted for further evaluation. Allergies amitriptyline HCl [From Elavil] Allergy (Intermediate, Verified 02/24/21 22:48) Nausea/Vomiting ciprofloxacin [From Cipro] Allergy (Intermediate, Verified 02/24/21 22:48) Rash metronidazole Allergy (Verified 02/24/21 22:48) Itching morphine Allergy (Verified 02/24/21 22:48) Itching phenobarbital Allergy (Verified 02/24/21 22:48) Itching/Hives/Rash Home Medications: Esomeprazole Magnesium 40 mg PO DAILY 11/03/19 Fluconazole 200 mg PO SEECOM 11/03/19 Furosemide [Lasix*] 40 mg PO BIDL 11/03/19 Lisinopril [Zestril] 40 mg PO DAILY 11/03/19 Metoprolol Succinate [Toprol Xl*] 50 mg PO DAILY 11/03/19 Nitrofuran Macro [Macrobid*] 1 tab PO BID 11/03/19 Sertraline HCl 2 tab PO DAILY 11/03/19 clonazePAM [Clonazepam] 1 mg PO BIDP PRN 11/03/19 hydrOXYzine pamoate [Hydroxyzine Pamoate] 25 mg PO BID 11/03/19 Pantoprazole [Protonix Tab*] 40 mg PO DAILY #30 tab 11/06/19 Potassium Chloride [K-Dur] 10 meq PO DAILY #30 tab.er.prt 11/06/19 Gabapentin [Neurontin] 400 mg PO TID 03/15/20 Ondansetron HCl [Zofran] 4 mg PO DAILY 03/15/20 Oxycodone HCl/Acetaminophen [Oxycodone-Acetaminophen 10-325] 1 each PO Q4H 03/15/20 - Past Medical/Surgical History Diabetic: No -: Hypertension -: COPD -: Chronic diastolic congestive heart failure -: GERD -: Morbid obesity -: Anxiety -: DDD, DJD lumbar spine, chronic pain -: skin cancer -: History of Liver tumor -: Chronic back pain-Pain management-Dr. Herron -: Depression with anxiety -: Hernia, UTI: ESBL -: Left ovarian tumor removal -: Hysterectomy -: Hernia Repair -: Lymphoma Left leg removed -: Melanoma removed from back Psychosocial/ Personal History: , Disabled, 5 children - Family History Father Medical History: Heart disease, Hypertension, Diabetes, Cancer, Liver disease Mother Medical History: Heart disease, Hypertension, Diabetes, Cancer Sister Medical History: Heart disease, Hypertension, Diabetes Brother Medical History: Hypertension - Social History Alcohol use: No CD- Drugs: No Caffeine use: Yes Review of Systems 10-point ROS is otherwise unremarkable Physical Examination - Vital Signs Temperature: 98 F Blood Pressure: 140/90 Pulse: 100 Respirations: 24 Pulse Ox (%): 85 - Physical Exam General: Alert, In no apparent distress, Confused, Obese HEENT: Atraumatic, PERRLA, Mucous membr. moist/pink, EOMI, Sclerae nonicteric Neck: Supple, 2+ carotid pulse no bruit, No LAD, Without JVD or thyroid abnormality Respiratory: Clear to auscultation bilaterally, Normal air movement Cardiovascular: Regular rate/rhythm, Normal S1 S2 Gastrointestinal: Normal bowel sounds, No tenderness Musculoskeletal: No tenderness Integumentary: No rashes Neurological: Normal speech, Normal tone, Cranial nerves 3-12 intact, Normal affect, Abnormal gait, Abnormal strength Lymphatics: No axilla or inguinal lymphadenopathy - Studies Laboratory Data (last 24 hrs) 02/24/21 14:19: PT 12.2, INR 1.06, APTT 31.7 02/24/21 14:00: WBC 11.40 H, Hgb 14.2, Hct 45.2 H, Plt Count 234 02/24/21 14:00: Sodium 142, Potassium 5.0, BUN 17, Creatinine 0.76, Glucose 90, Total Bilirubin 0.3, AST 26, ALT 22, Alkaline Phosphatase 106, Amylase 37, Lipase 33 L Assessment & Plan - Problems (Diagnosis) (1) Acute on chronic diastolic CHF (congestive heart failure) Onset Date: 07/26/17 Current Visit: No Status: Acute (2) COPD with acute exacerbation Onset Date: 01/20/18 Current Visit: No Status: Acute (3) Dyspnea Onset Date: 04/23/14 Current Visit: No Status: Acute Qualifiers: (4) Obesity hypoventilation syndrome Current Visit: No Status: Acute (5) SOB (shortness of breath) Onset Date: 07/13/16 Current Visit: No Status: Acute (6) Depression with anxiety Onset Date: 11/13/17 Current Visit: No Status: Chronic (7) Hypertension Onset Date: 03/27/16 Current Visit: No Status: Chronic (8) Morbid obesity with BMI of 60.0-69.9, adult Current Visit: No Status: Chronic - Plan 1. Echocardiogram if it has not been performed in the last 6 months 2. We will start patient on an MARIYA inhibitor or an ARB 3. We will start patient on a Beta jina 4. Cardiology consultation 5. Aggressive diuresis 6. Strict I's and O's 7. Daily weights 8. Continue with albuterol and Atrovent nebs 9. Continue with IV steroids 10. Room air O2 sats 11. Repeat chest x-ray in the morning 12. GI and DVT prophylaxis Discharge Plan: Home Plan to discharge in: Greater than 2 days - Advance Directives Does patient have a Living Will: No Does patient have a Durable POA for Healthcare: No
[2021-02-24] MEDS: METHYLPREDNISOLONE 125 MG INJ IV SCH (20:53)
[2021-02-24] MEDS: POTASSIUM 25 MEQ EFFERV TAB PO SCH (20:54)
[2021-02-24] MEDS: FUROSEMIDE 40 MG/4 ML VIAL IV SCH (20:54)
[2021-02-24] MEDS ORDERED: METOPROLOL TARTRATE 5 MG/5 ML INJ IV PRN (22:17)
[2021-02-24] MEDS ORDERED: DIGOXIN 0.25 MG/ML AMP IV ONE ×2 (22:19→22:21)
[2021-02-24] MEDS: Oxycodone HCl/Acetaminophen 1 TAB TAB PO PRN (22:36)
[2021-02-24 23:04] VITALS: BMI 58.2
[2021-02-25] MEDS: METHYLPREDNISOLONE 125 MG INJ IV SCH ×3 (01:22→12:44)
[2021-02-25] MEDS: OXYCODONE HCL 5 MG TAB PO PRN ×4 (04:27→21:18)
[2021-02-25 06:03] LABS: Absolute Lymphocytes (CBC) 1.2 K/uL (0.7-4.9); Basophils % 0.3 % (0-1.3); Hematocrit 44.5 % (36.0-45.0); Lymphocytes % 8.6 % (15.3-44.8); MPV 8.1 fL (7.6-11.3); RBC Red Blood Cell Count 5.01 M/uL (3.86-4.86)
[2021-02-25 06:20] LABS: ALT/SGPT 20 U/L (12-78); AST/SGOT 22 U/L (15-37); Albumin 2.4 g/dL (3.4-5.0); Alkaline Phosphatase 96 U/L (45-117); BUN Blood Urea Nitrogen 20 mg/dL (7-18); Bicarbonate 30 mmol/L (21-32); Bilirubin Total 0.3 mg/dL (0.2-1.0); Glucose Level 175 mg/dL (74-106); Magnesium 1.9 mg/dL (1.8-2.4); NT PRO-BNP 2511 pg/mL (<125); Potassium 5.5 mmol/L (3.5-5.1); Protein, Total 5.9 g/dL (6.4-8.2); Sodium Level 140 mmol/L (136-145); Troponin I < 0.02 ng/mL (0.0-0.045)
[2021-02-25 07:02] LABS: Blood Morphology Comment NOT SEEN (NOT SEEN); Platelet Estimate ADEQ; White Blood Cell Scan OK (OK)
[2021-02-25] MEDS ORDERED: VALSARTAN 80 MG TAB PO SCH (09:00)
[2021-02-25] MEDS: FUROSEMIDE 40 MG/4 ML VIAL IV SCH ×2 (10:47→16:43)
[2021-02-25] MEDS: POTASSIUM 25 MEQ EFFERV TAB PO SCH (10:47)
[2021-02-25] MEDS: ENOXAPARIN 40 MG/0.4 ML SQ SCH (10:47)
[2021-02-25] MEDS: ASPIRIN EC 81 MG TAB PO SCH (10:48)
[2021-02-25] MEDS: CLOPIDOGREL 75 MG TABLET PO SCH (10:48)
[2021-02-25] MEDS: Oxycodone HCl/Acetaminophen 1 TAB TAB PO PRN (12:40)
[2021-02-25] MEDS: predniSONE 20 MG TAB PO SCH (21:20)
[2021-02-26] MEDS: OXYCODONE HCL 5 MG TAB PO PRN ×3 (03:19→21:14)
[2021-02-26 06:15] LABS: Basophils % 0.1 % (0-1.3); Hematocrit 42.1 % (36.0-45.0); Lymphocytes % 9.4 % (15.3-44.8); MPV 7.9 fL (7.6-11.3); RBC Red Blood Cell Count 4.79 M/uL (3.86-4.86)
[2021-02-26 06:35] LABS: Phosphorus 2.5 mg/dL (2.5-4.9); Potassium 4.6 mmol/L (3.5-5.1)
--- NOTE | 2021-02-26 07:58 | RAD REPORT ---
EXAM DESCRIPTION: RAD - Chest Single View - 02/26/2021 7:04 am CLINICAL HISTORY: pneumonia COMPARISON: February 24 TECHNIQUE: AP portable chest image was obtained 02/26/2021 7:04 am . FINDINGS: Lung volumes remain low. Very large body habitus and portable technique accentuates all ch est findings. Cardiomegaly and prominent vasculature again noted. No new mass or consolidation. Suspi cion for mild CHF/volume overload remains. Left base assessment is limited. No measurable pleural eff usion and no pneumothorax. No acute bony abnormality seen. No acute aortic findings suspected. IMPRESSION: As detailed above, this limited portable study is [facility] significant [facility].
[2021-02-26] MEDS: PANTOPRAZOLE 40MG TABLET PO SCH (10:09)
[2021-02-26] MEDS: ENOXAPARIN 40 MG/0.4 ML SQ SCH (10:09)
[2021-02-26] MEDS: SERTRALINE HCL 100 MG TAB PO SCH (10:09)
[2021-02-26] MEDS: ASPIRIN EC 81 MG TAB PO SCH (10:09)
[2021-02-26] MEDS: FUROSEMIDE 40 MG/4 ML VIAL IV SCH ×2 (10:09→17:41)
[2021-02-26] MEDS: predniSONE 20 MG TAB PO SCH ×2 (10:10→21:13)
[2021-02-26] MEDS: METOPROLOL XL 50 MG TAB PO SCH (10:10)
[2021-02-26] MEDS: CLOPIDOGREL 75 MG TABLET PO SCH (10:10)
--- NOTE | 2021-02-26 16:44 | P.PN ---
Subjective Date of Service: 02/25/21 Patient continues to improve. Patient's clinical symptoms are improving. Plan to get patient out of bed and ambulate. Review of Systems 10-point ROS is otherwise unremarkable Physical Examination - Vital Signs Temperature: 97.5 F Blood Pressure: 155/84 Pulse: 79 Respirations: 23 Pulse Ox (%): 98 - Physical Exam General: Alert, In no apparent distress, Obese Respiratory: Diminished, Expiratory wheezes Cardiovascular: Regular rate/rhythm, Normal S1 S2, No murmurs Gastrointestinal: Normal bowel sounds, Soft and benign, Non-distended, No tenderness Musculoskeletal: No clubbing, No swelling, No tenderness Neurological: Sensation intact, Cranial nerves 3-12 intact, Abnormal gait, Abnormal strength - Studies Medications List Reviewed: Yes Assessment & Plan - Problems (Diagnosis) (1) Acute on chronic diastolic CHF (congestive heart failure) Onset Date: 07/26/17 Current Visit: No Status: Acute (2) COPD with acute exacerbation Onset Date: 01/20/18 Current Visit: No Status: Acute (3) Dyspnea Onset Date: 04/23/14 Current Visit: No Status: Acute Qualifiers: (4) Obesity hypoventilation syndrome Current Visit: No Status: Acute (5) SOB (shortness of breath) Onset Date: 07/13/16 Current Visit: No Status: Acute (6) Depression with anxiety Onset Date: 11/13/17 Current Visit: No Status: Chronic (7) Hypertension Onset Date: 03/27/16 Current Visit: No Status: Chronic (8) Morbid obesity with BMI of 60.0-69.9, adult Current Visit: No Status: Chronic - Plan Continue plan of care as mentioned below: 1. Echocardiogram if it has not been performed in the last 6 months 2. Continue with cardiac meds 3. Continue with inhaler therapy 4. Cardiology consultation appreciated 5. Aggressive diuresis 6. Strict I's and O's 7. Daily weights 8. Continue with albuterol and Atrovent nebs 9. Continue with IV steroids 10. Room air O2 sats 11. Repeat chest x-ray in the morning 12. GI and DVT prophylaxis Discharge Plan: Home Plan to discharge in: Greater than 2 days - Advance Directives Does patient have a Living Will: No Does patient have a Durable POA for Healthcare: No - Code Status/Comfort Care Code Status Assessed: Yes Code Status: Full Code Critical Care: No Time Spent Managing PTS Care (In Minutes): 35
--- NOTE | 2021-02-26 16:46 | P.PN ---
Date of Service: 02/26/21 Subjective Patient clinical symptoms are improving. Patient was able to sit on the side of the bed. She does not really ambulate. Plan and discharge back to home with ambulance in a.m. after echocardiogram which is pending. Review of Systems 10-point ROS is otherwise unremarkable Physical Examination - Vital Signs Reviewed - Physical Exam General: Alert, In no apparent distress, Obese Respiratory: Diminished, Expiratory wheezes Cardiovascular: Regular rate/rhythm, Normal S1 S2, No murmurs Gastrointestinal: Normal bowel sounds, Soft and benign, Non-distended, No tenderness Musculoskeletal: No clubbing, No swelling, No tenderness Neurological: Sensation intact, Cranial nerves 3-12 intact, Abnormal gait, Abnormal strength - Studies Medications List Reviewed: Yes Assessment & Plan - Problems (Diagnosis) (1) Acute on chronic diastolic CHF (congestive heart failure) Onset Date: 07/26/17 Current Visit: No Status: Acute (2) COPD with acute exacerbation Onset Date: 01/20/18 Current Visit: No Status: Acute (3) Dyspnea Onset Date: 04/23/14 Current Visit: No Status: Acute Qualifiers: (4) Obesity hypoventilation syndrome Current Visit: No Status: Acute (5) SOB (shortness of breath) Onset Date: 07/13/16 Current Visit: No Status: Acute (6) Depression with anxiety Onset Date: 11/13/17 Current Visit: No Status: Chronic (7) Hypertension Onset Date: 03/27/16 Current Visit: No Status: Chronic (8) Morbid obesity with BMI of 60.0-69.9, adult Current Visit: No Status: Chronic - Plan Continue plan of care as mentioned below: 1. Echocardiogram pending 2. Continue with cardiac meds 3. Continue with inhaler therapy 4. Cardiology consultation appreciated 5. Aggressive diuresis 6. Strict I's and O's 7. Daily weights 8. Continue with albuterol and Atrovent nebs 9. Change to oral steroids 10. Room air O2 sats 11. Repeat chest x-ray in the morning 12. GI and DVT prophylaxis Discharge Plan: Home Plan to discharge in: Greater than 2 days - Advance Directives Does patient have a Living Will: No Does patient have a Durable POA for Healthcare: No - Code Status/Comfort Care Code Status Assessed: Yes Code Status: Full Code Critical Care: No Time Spent Managing PTS Care (In Minutes): 35
--- NOTE | 2021-02-27 06:19 | P.PN ---
Subjective Date of Service: 02/27/21 Primary Care Provider: Dr. Benitez Chief Complaint: Acute CHF exacerbation, diastolic; Acute COPD exacerbation Subjective: Other (Currently on 3 L per nasal cannula. Shortness of breath improved.) Physical Examination - Vital Signs Temperature: 98.5 F Blood Pressure: 115/58 Pulse: 72 Respirations: 16 Pulse Ox (%): 98 - Studies Medications List Reviewed: Yes Assessment & Plan Discharge Plan: Other (retirement facility) Plan to discharge in: 48 Hours Physician Review Additional Text: COVID: negative CXR: COMPARISON: Portable March 2019 TECHNIQUE: AP portable chest image was obtained 02/24/2021 3:03 pm . FINDINGS: Lung volumes are very low. Low lung volumes, large body habitus and under penetrated portable technique accentuate heart, vasculature and lung markings. No peripheral mass or consolidations seen. Early interstitial edema or infiltrate could be masked in this setting. Heart and vasculature are normal. No measurable pleural effusion and no pneumothorax. No acute bony abnormality seen. No acute aortic findings suspected. IMPRESSION: Limited portable study with no peripheral mass or consolidation. Above detailed limitations could mask early edema or infiltrate. Follow up CXR: COMPARISON: February 24 TECHNIQUE: AP portable chest image was obtained 02/26/2021 7:04 am . FINDINGS: Lung volumes remain low. Very large body habitus and portable technique accentuates all chest findings. Cardiomegaly and prominent vasculature again noted. No new mass or consolidation. Suspicion for mild CHF/volume overload remains. Left base assessment is limited. No measurable pleural effusion and no pneumothorax. No acute bony abnormality seen. No acute aortic findings suspected. IMPRESSION: As detailed above, this limited portable study is without significant change from February 24. Physical exam: General: Alert, In no apparent distress, Obese Respiratory: Diminished, Expiratory wheezes Cardiovascular: Regular rate/rhythm, Normal S1 S2, No murmurs Gastrointestinal: Normal bowel sounds, Soft and benign, Non-distended, No tenderness Musculoskeletal: No clubbing, No swelling, No tenderness Neurological: Sensation intact, Cranial nerves 3-12 intact, Abnormal gait, Abnormal strength Impression: Acute on chronic diastolic CHF complicated with COPD exacerbation Obesity hypoventilation syndrome Depression with anxiety Hypertension Morbid obesity, BMI 58 Plan: Continue with IV diuresisLasix 40 mg 1 pill twice daily. Continue 1500 cc/day fluid restriction and low-salt diet. We will continue monitor closely. Continue to wean off oxygen. Physical therapy to assess ambulation. Spoke with patient concerning ambulation. Physical therapy to assess ambulation. Recommend skilled placement. Case discussed at length with patient and daughter. Both seem agreeable to skilled placement. Social work to help with skilled placement referral. Continue with metoprolol. Maintain blood pressure less than 130/80. We will continue to address and monitor. Continue aspirin and Plavix. Continue Zoloft for depression. Patient with chronic pain. Patient remains on oxycodone. Continue Protonix. Continue COPD medication. Patient on prednisone. This will be weaned off. Continue home oxygen at discharge. DVT prophylaxis: Lovenox CODE STATUS: Full code Advance care minutes: Spoke at length with patient and daughter. Patient likely requires skilled placement before going home. Will pursue skilled placement. Social work to help with this. Time Spent Managing Pts Care (In Minutes): 55
[2021-02-27 06:32] LABS: Absolute Lymphocytes (CBC) 1.2 K/uL (0.7-4.9); Basophils % 0.4 % (0-1.3); Hematocrit 44.5 % (36.0-45.0); Lymphocytes % 9.3 % (15.3-44.8); MPV 7.5 fL (7.6-11.3); RBC Red Blood Cell Count 5.04 M/uL (3.86-4.86)
[2021-02-27 06:46] LABS: Magnesium 1.8 mg/dL (1.8-2.4); Phosphorus 2.6 mg/dL (2.5-4.9); Potassium 4.3 mmol/L (3.5-5.1)
[2021-02-27] MEDS: ARFORMOTEROL TARTRATE 15 MCG/2 ML VIAL.NEB NEB SCH ×2 (08:46→20:20)
[2021-02-27] MEDS: ENOXAPARIN 40 MG/0.4 ML SQ SCH (09:01)
[2021-02-27] MEDS: SERTRALINE HCL 100 MG TAB PO SCH (09:01)
[2021-02-27] MEDS: ASPIRIN EC 81 MG TAB PO SCH (09:02)
[2021-02-27] MEDS: predniSONE 20 MG TAB PO SCH ×2 (09:02→20:29)
[2021-02-27] MEDS: OXYCODONE HCL 5 MG TAB PO PRN ×3 (09:02→20:39)
[2021-02-27] MEDS: PANTOPRAZOLE 40MG TABLET PO SCH (09:02)
[2021-02-27] MEDS: CLOPIDOGREL 75 MG TABLET PO SCH (09:02)
[2021-02-27] MEDS: METOPROLOL XL 50 MG TAB PO SCH (09:06)
[2021-02-27] MEDS: FUROSEMIDE 40 MG/4 ML VIAL IV SCH ×2 (09:07→17:25)
--- NOTE | 2021-02-27 18:18 | P.CNS ---
Date of Consult: 02/27/21 Reason for Consult: CHF Requesting Physician: Hola Aguilera Primary Care Provider: Dr. Benitez Chief Complaint: Acute CHF exacerbation, diastolic; Acute COPD exacerbation History of Present Illness: 70 yo WF Obese presented to the ER with moderate, progressive dyspnea in the setting of CHF/ COPD with associated edema. She reports diffuse pain. She reports an umbilical infection. Patient is a 70-year-old female came to the hospital with shortness of breath. Patient has a longstanding history of COPD, morbid obesity, chronic pain, and diastolic heart failure. Patient also with generalized weakness which is worsened by her morbid obesity. Patient was short of breath. She was noted to be more weak than she normally has. She has noticed some swelling in her lower extremities. She has recurrent admissions and has been in rehab for her weakness as well. She has a hard time getting out of bed. Her family has to do maximum assistance. Will get physical therapy evaluation. She will be admitted for further evaluation. 14:11 This 70 yrs old Female presents to ER via EMS with complaints of Shortness of breath. rn 14:11 The patient has shortness of breath at rest, with light activity. Onset: The rn symptoms/episode began/occurred 2 week(s) ago. The patient's shortness of breath is aggravated by exertion, light activity, supine position, talking. Associated signs and symptoms: Pertinent positives: non-productive cough, Pertinent negatives: fever, hemoptysis. Severity of symptoms: At their worst the symptoms were moderate in the emergency department the symptoms are unchanged. The patient has experienced similar episodes in the past. The patient has not recently seen a physician. Patient reports for the last 1 to 2 weeks has been having increased shortness of breath with cough. Reports feels like needs more oxygen. Also reports increased swelling to legs and generalized weakness. No fever. No hemoptysis. Allergies amitriptyline HCl [From Elavil] Allergy (Intermediate, Verified 02/24/21 22:48) Nausea/Vomiting ciprofloxacin [From Cipro] Allergy (Intermediate, Verified 02/24/21 22:48) Rash metronidazole Allergy (Verified 02/24/21 22:48) Itching morphine Allergy (Verified 02/24/21 22:48) Itching phenobarbital Allergy (Verified 02/24/21 22:48) Itching/Hives/Rash Home medications list reviewed: Yes Home Medications: Esomeprazole Magnesium 40 mg PO DAILY 11/03/19 Fluconazole 200 mg PO SEECOM 11/03/19 Furosemide [Lasix*] 40 mg PO BIDL 11/03/19 Lisinopril [Zestril] 40 mg PO DAILY 11/03/19 Metoprolol Succinate [Toprol Xl*] 50 mg PO DAILY 11/03/19 Nitrofuran Macro [Macrobid*] 1 tab PO BID 11/03/19 Sertraline HCl 2 tab PO DAILY 11/03/19 clonazePAM [Clonazepam] 1 mg PO BIDP PRN 11/03/19 hydrOXYzine pamoate [Hydroxyzine Pamoate] 25 mg PO BID 11/03/19 Pantoprazole [Protonix Tab*] 40 mg PO DAILY #30 tab 11/06/19 Potassium Chloride [K-Dur] 10 meq PO DAILY #30 tab.er.prt 11/06/19 Gabapentin [Neurontin] 400 mg PO TID 03/15/20 Ondansetron HCl [Zofran] 4 mg PO DAILY 03/15/20 Oxycodone HCl/Acetaminophen [Oxycodone-Acetaminophen 10-325] 1 each PO Q4H 03/15/20 - Past Medical/Surgical History Diabetic: No -: Hypertension -: COPD -: Chronic diastolic congestive heart failure -: GERD -: Morbid obesity -: Anxiety -: DDD, DJD lumbar spine, chronic pain -: skin cancer -: History of Liver tumor -: Chronic back pain-Pain management-Dr. Herron -: Depression with anxiety -: Hernia, UTI: ESBL -: Left ovarian tumor removal -: Hysterectomy -: Hernia Repair -: Lymphoma Left leg removed -: Melanoma removed from back Psychosocial/ Personal History: , Disabled, 5 children - Family History Father Medical History: Heart disease, Hypertension, Diabetes, Cancer, Liver disease Mother Medical History: Heart disease, Hypertension, Diabetes, Cancer Sister Medical History: Heart disease, Hypertension, Diabetes Brother Medical History: Hypertension - Social History Smoking Status: Current every day smoker Alcohol use: No CD- Drugs: No Caffeine use: Yes Place of Residence: Home Review of Systems 10-point ROS is otherwise unremarkable General: Weakness, Malaise Respiratory: SOB with Excertion Cardiovascular: Edema Integumentary: Lesions Physical Examination Temp Pulse Resp BP Pulse Ox 97.6 F 74 20 117/84 91 02/27/21 15:53 02/27/21 15:53 02/27/21 15:53 02/27/21 15:53 02/27/21 15:53 General: Oriented x3, Cooperative HEENT: Atraumatic Neck: Supple Respiratory: Diminished Cardiovascular: Regular rate/rhythm, Edema Gastrointestinal: Soft and benign, Non-distended Musculoskeletal: No clubbing, No contractures Integumentary: No cyanosis, Skin lesion Neurological: Normal speech Blood work reviewed in the chart. Imagings Data: EXAM DESCRIPTION: RAD - Chest Single View - 02/26/2021 7:04 am CLINICAL HISTORY: pneumonia COMPARISON: February 24 TECHNIQUE: AP portable chest image was obtained 02/26/2021 7:04 am . FINDINGS: Lung volumes remain low. Very large body habitus and portable technique accentuates all chest findings. Cardiomegaly and prominent vasculature again noted. No new mass or consolidation. Suspicion for mild CHF/volume overload remains. Left base assessment is limited. No measurable pleural effusion and no pneumothorax. No acute bony abnormality seen. No acute aortic findings suspected. IMPRESSION: As detailed above, this limited portable study is without significant change from February 24. Conclusions/Impression: Hyperkalemia -Continue Lasix Alkalosis -Start daily Diamox HTN with CHF -Continue Metoprolol Diastolic CHF, A/C -Continue Lasix -Agree with fluid restriction -Low sodium diet Hyperglycemia on prednisone -No sugar diet -Wean prednisone as tolerated Moderate malnutrition -Protein supplementation as tolerated Thank you kindly for the consultation.
[2021-02-27] MEDS ORDERED: acetaZOLAMIDE 250 MG TAB PO ONE (18:30)
[2021-02-27] MEDS: LACTULOSE 20 GM/30 ML UCUP PO PRN (18:36)
[2021-02-28 05:26] LABS: Absolute Lymphocytes (CBC) 1.2 K/uL (0.7-4.9); Basophils % 0.2 % (0-1.3); Lymphocytes % 10.1 % (15.3-44.8); MPV 7.6 fL (7.6-11.3); RBC Red Blood Cell Count 4.96 M/uL (3.86-4.86)
[2021-02-28 05:45] LABS: Magnesium 1.8 mg/dL (1.8-2.4)
--- NOTE | 2021-02-28 06:01 | P.PN ---
Subjective Date of Service: 02/28/21 Primary Care Provider: Dr. Benitez Chief Complaint: Acute CHF exacerbation, diastolic; Acute COPD exacerbation Subjective: Improving, Doing well Physical Examination - Vital Signs Temperature: 97.4 F Blood Pressure: 128/81 Pulse: 81 Respirations: 17 Pulse Ox (%): 96 - Studies Medications List Reviewed: Yes Assessment & Plan Discharge Plan: Other (detention facility) Plan to discharge in: 24 Hours Physician Review Additional Text: COVID: negative CXR: COMPARISON: Portable March 2019 TECHNIQUE: AP portable chest image was obtained 02/24/2021 3:03 pm . FINDINGS: Lung volumes are very low. Low lung volumes, large body habitus and under penetrated portable technique accentuate heart, vasculature and lung markings. No peripheral mass or consolidations seen. Early interstitial edema or infiltrate could be masked in this setting. Heart and vasculature are normal. No measurable pleural effusion and no pneumothorax. No acute bony abnormality seen. No acute aortic findings suspected. IMPRESSION: Limited portable study with no peripheral mass or consolidation. Above detailed limitations could mask early edema or infiltrate. Follow up CXR: COMPARISON: February 24 TECHNIQUE: AP portable chest image was obtained 02/26/2021 7:04 am . FINDINGS: Lung volumes remain low. Very large body habitus and portable technique accentuates all chest findings. Cardiomegaly and prominent vasculature again noted. No new mass or consolidation. Suspicion for mild CHF/volume overload remains. Left base assessment is limited. No measurable pleural effusion and no pneumothorax. No acute bony abnormality seen. No acute aortic findings suspected. IMPRESSION: As detailed above, this limited portable study is without significant change from February 24. Physical exam: General: Alert, In no apparent distress, Obese Respiratory: Diminished, Expiratory wheezes Cardiovascular: Regular rate/rhythm, Normal S1 S2, No murmurs Gastrointestinal: Normal bowel sounds, Soft and benign, Non-distended, No tenderness Musculoskeletal: No clubbing, No swelling, No tenderness Neurological: Sensation intact, Cranial nerves 3-12 intact, Abnormal gait, Abnormal strength Impression: Acute on chronic diastolic CHF complicated with COPD exacerbation Obesity hypoventilation syndrome Depression with anxiety Hypertension Chronic pain GERD Morbid obesity, BMI 58 Plan: Acute on chronic diastolic CHF complicated with COPD exacerbation: Patient doing well overall. Continue work with physical therapy. Patient agreeable to going to skilled facility to continue treatment. Continue with IV diuresisLasix 40 mg 1 pill twice daily. Diamox 500 mg was added by nephrology yesterday. Will discuss with nephrology about medication. Continue 1500 cc/day fluid restri ction and low-salt diet. Continue with COPD medication. Wean off prednisone. Await approval for placement. Hypertension: Continue with metoprolol. Maintain blood pressure less than 130/80. We will continue to address and monitor. Continue aspirin and Plavix. Depression with anxiety: Continue Zoloft for depression. Chronic pain: Patient remains on oxycodone. GERD: Continue Protonix. DVT prophylaxis: Lovenox CODE STATUS: Full code [facility] [id number] minutes: Spoke at length with patient and daughter. Both agreeable to skilled placement. Time Spent Managing Pts Care (In Minutes): 55
[2021-02-28] MEDS: FUROSEMIDE 40 MG/4 ML VIAL IV SCH ×2 (09:22→17:46)
[2021-02-28] MEDS: ASPIRIN EC 81 MG TAB PO SCH (09:22)
[2021-02-28] MEDS: acetaZOLAMIDE 250 MG TAB PO SCH (09:22)
[2021-02-28] MEDS: ENOXAPARIN 40 MG/0.4 ML SQ SCH (09:22)
[2021-02-28] MEDS: predniSONE 20 MG TAB PO SCH ×2 (09:23→21:44)
[2021-02-28] MEDS: SERTRALINE HCL 100 MG TAB PO SCH (09:23)
[2021-02-28] MEDS: METOPROLOL XL 50 MG TAB PO SCH (09:23)
[2021-02-28] MEDS: PANTOPRAZOLE 40MG TABLET PO SCH (09:23)
[2021-02-28] MEDS: CLOPIDOGREL 75 MG TABLET PO SCH (09:23)
[2021-02-28] MEDS: DOCUSATE NA 100 MG CAP PO SCH (09:23)
[2021-02-28] MEDS: ARFORMOTEROL TARTRATE 15 MCG/2 ML VIAL.NEB NEB SCH ×2 (10:28→21:20)
[2021-02-28] MEDS: OXYCODONE HCL 5 MG TAB PO PRN ×3 (12:16→21:44)
[2021-02-28] MEDS: LACTULOSE 20 GM/30 ML UCUP PO PRN (17:51)
[2021-02-28] MEDS: clonazePAM 1 MG TAB PO PRN (21:44)
--- NOTE | 2021-03-01 05:56 | P.PN ---
Subjective Date of Service: 03/01/21 Primary Care Provider: Dr. Benitez Chief Complaint: Acute CHF exacerbation, diastolic; Acute COPD exacerbation Subjective: Improving, Doing well Physical Examination - Vital Signs Temperature: 97.6 F Blood Pressure: 112/64 Pulse: 86 Respirations: 18 Pulse Ox (%): 90 - Studies Medications List Reviewed: Yes Assessment & Plan Discharge Plan: Home (With hospice) Plan to discharge in: 24 Hours Physician Review Additional Text: COVID: negative CXR: COMPARISON: Portable March 2019 TECHNIQUE: AP portable chest image was obtained 02/24/2021 3:03 pm . FINDINGS: Lung volumes are very low. Low lung volumes, large body habitus and under penetrated portable technique accentuate heart, vasculature and lung markings. No peripheral mass or consolidations seen. Early interstitial edema or infiltrate could be masked in this setting. Heart and vasculature are normal. No measurable pleural effusion and no pneumothorax. No acute bony abnormality seen. No acute aortic findings suspected. IMPRESSION: Limited portable study with no peripheral mass or consolidation. Above detailed limitations could mask early edema or infiltrate. Follow up CXR: COMPARISON: February 24 TECHNIQUE: AP portable chest image was obtained 02/26/2021 7:04 am . FINDINGS: Lung volumes remain low. Very large body habitus and portable technique accentuates all chest findings. Cardiomegaly and prominent vasculature again noted. No new mass or consolidation. Suspicion for mild CHF/volume overload remains. Left base assessment is limited. No measurable pleural effusion and no pneumothorax. No acute bony abnormality seen. No acute aortic findings suspected. IMPRESSION: As detailed above, this limited portable study is without significant change from February 24. ECHO 2019: MEASUREMENTS (cm) DIASTOLIC (NORMALS) SYSTOLIC (NORMALS) IVSd 1.0 (0.6-1.2) LA Diam 4.1 (1.9-4.0) LVEF 51% LVIDd 3.0 (3.5-5.7) LVIDs 2.3 (2.0-3.5) %FS 25% LVPWd 1.0 (0.6-1.2) Ao Diam (2.0-3.7) 2 DIMENSIONAL ASSESSMENT: RIGHT ATRIUM: NORMAL LEFT ATRIUM: DILATED RIGHT VENTRICLE: NORMAL LEFT VENTRICLE: NORMAL TRICUSPID VALVE: NORMAL MITRAL VALVE: NORMAL PULMONIC VALVE: NORMAL AORTIC VALVE: SCLEROSIS PERICARDIAL EFFUSION: NONE AORTIC ROOT: NORMAL LEFT VENTRICULAR WALL MOTION: NORMAL EJECTION FRACTION AND SIZE DOPPLER/COLOR FLOW: MILD TRICUSPID REGURGITATION. NORMAL RIGHT VENTRICULAR SYSTOLIC PRESSURE COMMENTS: DIASTOLIC DYSFUNCTION. AORTIC SCLEROSIS NO STENOSIS. LEFT ATRIAL ENLARGEMENT. NORMAL EJECTION FRACTION AND SIZE. Physical exam: General: Alert, In no apparent distress, Obese Respiratory: Diminished, Expiratory wheezes Cardiovascular: Regular rate/rhythm, Normal S1 S2, No murmurs Gastrointestinal: Normal bowel sounds, Soft and benign, Non-distended, No tenderness Musculoskeletal: No clubbing, No swelling, No tenderness Neurological: Sensation intact, Cranial nerves 3-12 intact, Abnormal gait, Abnor mal strength Impression: Acute on chronic diastolic CHF complicated with COPD exacerbation, EF 51% Obesity hypoventilation syndrome Depression with anxiety CAD Hypertension Chronic pain GERD Morbid obesity, BMI 58 Plan: Acute on chronic diastolic CHF complicated with COPD exacerbation, EF 51%: Patient doing well at this time. Will transition to Lasix 40 mg 1 pill twice daily. Continue Diamox 500 mg daily. Continue 1500 cc/day fluid restriction and low-salt diet. Continue treatment for COPD and CHF. Taper off prednisone. Continue Brovana, albuterol and Atrovent. Wean off oxygen to maintain sats above 93%. Patient now wants to go home with hospice. Case discussed with social science research assistant and patient. Will pursue hospice at discharge. Hypertension: Continue with metoprolol XL 50 mg daily. Maintain blood pressure less than 130/80. We will continue to address and monitor. CAD: Continue aspirin and Plavix. Depression with anxiety: Continue Zoloft 200 mg daily and Klonopin 1 mg twice daily as needed for anxiety. Chronic pain: Patient remains on oxycodone 5 mg every 4 hours as needed for pain. GERD: Continue Protonix 40 mg daily. DVT prophylaxis: Lovenox CODE STATUS: Patient remains full code [facility] [id number] minutes: Patient desires hospice at home. Time Spent Managing Pts Care (In Minutes): 55
[2021-03-01 06:14] LABS: Absolute Lymphocytes (CBC) 1.4 K/uL (0.7-4.9); Basophils % 0.2 % (0-1.3); Hematocrit 43.1 % (36.0-45.0); Lymphocytes % 10.2 % (15.3-44.8); MPV 7.6 fL (7.6-11.3); RBC Red Blood Cell Count 4.91 M/uL (3.86-4.86)
[2021-03-01 06:37] LABS: Magnesium 1.9 mg/dL (1.8-2.4); Potassium 3.9 mmol/L (3.5-5.1)
[2021-03-01] MEDS: ASPIRIN EC 81 MG TAB PO SCH (08:29)
[2021-03-01] MEDS: DOCUSATE NA 100 MG CAP PO SCH (08:29)
[2021-03-01] MEDS: SERTRALINE HCL 100 MG TAB PO SCH (08:29)
[2021-03-01] MEDS: FUROSEMIDE 40 MG/4 ML VIAL IV SCH (08:29)
[2021-03-01] MEDS: predniSONE 20 MG TAB PO SCH ×2 (08:29→20:29)
[2021-03-01] MEDS: PANTOPRAZOLE 40MG TABLET PO SCH (08:29)
[2021-03-01] MEDS: CLOPIDOGREL 75 MG TABLET PO SCH (08:29)
[2021-03-01] MEDS: ENOXAPARIN 40 MG/0.4 ML SQ SCH (08:30)
[2021-03-01] MEDS: METOPROLOL XL 50 MG TAB PO SCH (08:30)
[2021-03-01] MEDS: ARFORMOTEROL TARTRATE 15 MCG/2 ML VIAL.NEB NEB SCH ×2 (08:57→20:15)
[2021-03-01] MEDS: acetaZOLAMIDE 250 MG TAB PO SCH (11:06)
[2021-03-01] MEDS: OXYCODONE HCL 5 MG TAB PO PRN ×3 (12:16→20:31)
[2021-03-01] MEDS: FUROSEMIDE 40 MG TABLET PO SCH (16:30)
--- NOTE | 2021-03-01 20:09 | P.PN ---
Date of Service: 02/28/21 Vital Signs Temp Pulse Resp BP Pulse Ox 97.7 F 93 H 20 113/78 97 03/01/21 16:00 03/01/21 16:00 03/01/21 16:00 03/01/21 16:00 03/01/21 16:00 Medications Acetaminophen (Acetaminophen 500 Mg Tab) 500 mg PO Q4HP PRN PRN Reason: TEMP > 100.4' F OR MILD PAIN Acetazolamide (Acetazolamide 250 Mg Tab) 500 mg PO Q24H [facility] Last Admin: 03/01/21 11:06 Dose: 500 mg Documented by: Albuterol Sulfate (Albuterol 2.5 Mg/3 Ml Neb Maggie) 2.5 mg NEB [id number] PRN PRN Reason: SHORTNESS OF BREATH Arformoterol Tartrate (Arformoterol Tartrate 15 Mcg/2 Ml Vial.Neb) 15 mcg NEB BIDRESP [facility] Last Admin: 03/01/21 08:57 Dose: 15 mcg Documented by: Aspirin (Aspirin Ec 81 Mg Tab) 81 mg PO DAILY [facility] Last Admin: 03/01/21 08:29 Dose: 81 mg Documented by: Clonazepam (Clonazepam 1 Mg Tab) 1 mg PO BID PRN PRN Reason: ANXIETY Last Admin: 02/28/21 21:44 Dose: 1 mg Documented by: Clopidogrel Bisulfate (Clopidogrel 75 Mg Tablet) 75 mg PO DAILY [facility] Last Admin: 03/01/21 08:29 Dose: 75 mg Documented by: Docusate Sodium (Docusate Na 100 Mg Cap) 100 mg PO DAILY [facility] Last Admin: 03/01/21 08:29 Dose: 100 mg Documented by: Enoxaparin Sodium (Enoxaparin 40 Mg/0.4 Ml) 40 mg SQ DAILY [facility] Last Admin: 03/01/21 08:30 Dose: 40 mg Documented by: Furosemide (Furosemide 40 Mg Tablet) 40 mg PO BIDL [facility] Last Admin: 03/01/21 16:30 Dose: 40 mg Documented by: Lactulose (Lactulose 20 Gm/30 Ml Ucup) 10 gm PO BID PRN PRN Reason: CONSTIPATION Last Admin: 02/28/21 17:51 Dose: 10 gm Documented by: Metoprolol Succinate (Metoprolol Xl 50 Mg Tab) 50 mg PO DAILY [facility] Last Admin: 03/01/21 08:30 Dose: 50 mg Documented by: Mupirocin (Mupirocin 2% Oint 22gm Tube) 1 appl TOP TID [facility] Ondansetron HCl (Ondansetron 4 Mg/2 Ml Vial) 4 mg IV Q6HP PRN PRN Reason: NAUSEA / VOMITING Oxycodone HCl (Oxycodone Hcl 5 Mg Tab) 5 mg PO Q4H PRN PRN Reason: Pain scale 5-7 (Moderate) Last Admin: 03/01/21 16:30 Dose: 5 mg Documented by: Pantoprazole Sodium (Pantoprazole 40mg Tablet) 40 mg PO DAILY [facility]; Protocol Last Admin: 03/01/21 08:29 Dose: 40 mg Documented by: Prednisone (Prednisone 20 Mg Tab) 20 mg PO BID [facility] Last Admin: 03/01/21 08:29 Dose: 20 mg Documented by: Sertraline HCl (Sertraline Hcl 100 Mg Tab) 200 mg PO DAILY [facility] Last Admin: 03/01/21 08:29 Dose: 200 mg Documented by: Sodium Chloride (Flush Normal Saline 10 Ml) 10 ml IV BID [facility] Last Admin: 03/01/21 08:30 Dose: 10 ml Documented by: Microbiology Results 02/24/21 14:10 Blood - Blood Aerobic Blood Culture - Final No growth in 5 days. 02/24/21 14:10 Blood - Blood Anaerobic Blood Culture - Final No growth in 5 days. 02/24/21 14:00 Blood - Blood Aerobic Blood Culture - Final No growth in 5 days. 02/24/21 14:00 Blood - Blood Anaerobic Blood Culture - Final No growth in 5 days. Assessment/ Plan: Nephrology No dyspnea No chest pain No acute events overnight Vitals, medications, blood work and imaging reviewed in the chart General: Oriented x3, Cooperative HEENT: Atraumatic Neck: Supple Respiratory: Diminished Cardiovascular: Regular rate/rhythm, Edema Gastrointestinal: Soft and benign, Non-distended Musculoskeletal: No clubbing, No contractures Integumentary: No cyanosis, Skin lesion Neurological: Normal speech Blood work reviewed in the chart. Imagings Data: EXAM DESCRIPTION: RAD - Chest Single View - 02/26/2021 7:04 am CLINICAL HISTORY: pneumonia COMPARISON: February 24 TECHNIQUE: AP portable chest image was obtained 02/26/2021 7:04 am . FINDINGS: Lung volumes remain low. Very large body habitus and portable technique accentuates all chest findings. Cardiomegaly and prominent vasculature again noted. No new mass or consolidation. Suspicion for mild CHF/volume overload remains. Left base assessment is limited. No measurable pleural effusion and no pneumothorax. No acute bony abnormality seen. No acute aortic findings suspected. IMPRESSION: As detailed above, this limited portable study is without significant change from February 24. Conclusions/Impression: Hyperkalemia -Continue Lasix Alkalosis -Continue daily Diamox HTN with CHF -Continue Metoprolol Diastolic CHF, A/C -Continue Lasix -Agree with fluid restriction -Low sodium diet Hyperglycemia on prednisone -No sugar diet -Wean prednisone as tolerated Moderate malnutrition -Protein supplementation as tolerated
--- NOTE | 2021-03-01 20:10 | P.PN ---
Date of Service: 03/01/21 Vital Signs Temp Pulse Resp BP Pulse Ox 97.7 F 93 H 20 113/78 97 03/01/21 16:00 03/01/21 16:00 03/01/21 16:00 03/01/21 16:00 03/01/21 16:00 Medications Acetaminophen (Acetaminophen 500 Mg Tab) 500 mg PO Q4HP PRN PRN Reason: TEMP > 100.4' F OR MILD PAIN Acetazolamide (Acetazolamide 250 Mg Tab) 500 mg PO Q24H [facility] Last Admin: 03/01/21 11:06 Dose: 500 mg Documented by: Albuterol Sulfate (Albuterol 2.5 Mg/3 Ml Neb Maggie) 2.5 mg NEB [id number] PRN PRN Reason: SHORTNESS OF BREATH Arformoterol Tartrate (Arformoterol Tartrate 15 Mcg/2 Ml Vial.Neb) 15 mcg NEB BIDRESP [facility] Last Admin: 03/01/21 08:57 Dose: 15 mcg Documented by: Aspirin (Aspirin Ec 81 Mg Tab) 81 mg PO DAILY [facility] Last Admin: 03/01/21 08:29 Dose: 81 mg Documented by: Clonazepam (Clonazepam 1 Mg Tab) 1 mg PO BID PRN PRN Reason: ANXIETY Last Admin: 02/28/21 21:44 Dose: 1 mg Documented by: Clopidogrel Bisulfate (Clopidogrel 75 Mg Tablet) 75 mg PO DAILY [facility] Last Admin: 03/01/21 08:29 Dose: 75 mg Documented by: Docusate Sodium (Docusate Na 100 Mg Cap) 100 mg PO DAILY [facility] Last Admin: 03/01/21 08:29 Dose: 100 mg Documented by: Enoxaparin Sodium (Enoxaparin 40 Mg/0.4 Ml) 40 mg SQ DAILY [facility] Last Admin: 03/01/21 08:30 Dose: 40 mg Documented by: Furosemide (Furosemide 40 Mg Tablet) 40 mg PO BIDL [facility] Last Admin: 03/01/21 16:30 Dose: 40 mg Documented by: Lactulose (Lactulose 20 Gm/30 Ml Ucup) 10 gm PO BID PRN PRN Reason: CONSTIPATION Last Admin: 02/28/21 17:51 Dose: 10 gm Documented by: Metoprolol Succinate (Metoprolol Xl 50 Mg Tab) 50 mg PO DAILY [facility] Last Admin: 03/01/21 08:30 Dose: 50 mg Documented by: Mupirocin (Mupirocin 2% Oint 22gm Tube) 1 appl TOP TID [facility] Ondansetron HCl (Ondansetron 4 Mg/2 Ml Vial) 4 mg IV Q6HP PRN PRN Reason: NAUSEA / VOMITING Oxycodone HCl (Oxycodone Hcl 5 Mg Tab) 5 mg PO Q4H PRN PRN Reason: Pain scale 5-7 (Moderate) Last Admin: 03/01/21 16:30 Dose: 5 mg Documented by: Pantoprazole Sodium (Pantoprazole 40mg Tablet) 40 mg PO DAILY [facility]; Protocol Last Admin: 03/01/21 08:29 Dose: 40 mg Documented by: Prednisone (Prednisone 20 Mg Tab) 20 mg PO BID [facility] Last Admin: 03/01/21 08:29 Dose: 20 mg Documented by: Sertraline HCl (Sertraline Hcl 100 Mg Tab) 200 mg PO DAILY [facility] Last Admin: 03/01/21 08:29 Dose: 200 mg Documented by: Sodium Chloride (Flush Normal Saline 10 Ml) 10 ml IV BID [facility] Last Admin: 03/01/21 08:30 Dose: 10 ml Documented by: Microbiology Results 02/24/21 14:10 Blood - Blood Aerobic Blood Culture - Final No growth in 5 days. 02/24/21 14:10 Blood - Blood Anaerobic Blood Culture - Final No growth in 5 days. 02/24/21 14:00 Blood - Blood Aerobic Blood Culture - Final No growth in 5 days. 02/24/21 14:00 Blood - Blood Anaerobic Blood Culture - Final No growth in 5 days. Assessment/ Plan: Nephrology Improving dyspnea. Good urine output. No chest pain No acute events overnight Vitals, medications, blood work and imaging reviewed in the chart General: Oriented x3, Cooperative HEENT: Atraumatic Neck: Supple Respiratory: Diminished Cardiovascular: Regular rate/rhythm, Edema Gastrointestinal: Soft and benign, Non-distended Musculoskeletal: No clubbing, No contractures Integumentary: No cyanosis, Skin lesion Neurological: Normal speech Blood work reviewed in the chart. Imagings Data: EXAM DESCRIPTION: RAD - Chest Single View - 02/26/2021 7:04 am CLINICAL HISTORY: pneumonia COMPARISON: February 24 TECHNIQUE: AP portable chest image was obtained 02/26/2021 7:04 am . FINDINGS: Lung volumes remain low. Very large body habitus and portable technique accentuates all chest findings. Cardiomegaly and prominent vasculature again noted. No new mass or consolidation. Suspicion for mild CHF/volume overload remains. Left base assessment is limited. No measurable pleural effusion and no pneumothorax. No acute bony abnormality seen. No acute aortic findings suspected. IMPRESSION: As detailed above, this limited portable study is without significant change from February 24. Conclusions/Impression: Hyperkalemia -Continue Lasix Alkalosis -Continue daily Diamox HTN with CHF -Continue Metoprolol Diastolic CHF, A/C -Continue Lasix -Agree with fluid restriction -Low sodium diet Hyperglycemia on prednisone -No sugar diet -Wean prednisone as tolerated Moderate malnutrition -Protein supplementation as tolerated
[2021-03-01] MEDS: clonazePAM 1 MG TAB PO PRN (20:29)
[2021-03-01] MEDS: MUPIROCIN 2% OINT 22GM TUBE TOP SCH (20:30)
[2021-03-02] MEDS: OXYCODONE HCL 5 MG TAB PO PRN ×4 (01:04→19:13)
--- NOTE | 2021-03-02 05:52 | P.DS ---
Admission Date: 02/24/21 Discharge Date: 03/02/21 Primary Care Provider: Dr. Benitez Disposition: HOSPICE-HOME Discharge Condition: GOOD Reason for Admission: Acute CHF exacerbation, diastolic; Acute COPD exacerbation Consultations: Nephrology-Dr. Benitez Procedures: COVID: negative CXR: COMPARISON: Portable March 2019 TECHNIQUE: AP portable chest image was obtained 02/24/2021 3:03 pm . FINDINGS: Lung volumes are very low. Low lung volumes, large body habitus and under penetrated portable technique accentuate heart, vasculature and lung markings. No peripheral mass or consolidations seen. Early interstitial edema or infiltrate could be masked in this setting. Heart and vasculature are normal. No measurable pleural effusion and no pneumothorax. No acute bony abnormality seen. No acute aortic findings suspected. IMPRESSION: Limited portable study with no peripheral mass or consolidation. Above detailed limitations could mask early edema or infiltrate. Follow up CXR: COMPARISON: February 24 TECHNIQUE: AP portable chest image was obtained 02/26/2021 7:04 am . FINDINGS: Lung volumes remain low. Very large body habitus and portable technique accentuates all chest findings. Cardiomegaly and prominent vasculature again noted. No new mass or consolidation. Suspicion for mild CHF/volume overload remains. Left base assessment is limited. No measurable pleural effusion and no pneumothorax. No acute bony abnormality seen. No acute aortic findings suspected. IMPRESSION: As detailed above, this limited portable study is without significant change from February 24. ECHO 2019: MEASUREMENTS (cm) DIASTOLIC (NORMALS) SYSTOLIC (NORMALS) IVSd 1.0 (0.6-1.2) LA Diam 4.1 (1.9-4.0) LVEF 51% LVIDd 3.0 (3.5-5.7) LVIDs 2.3 (2.0-3.5) %FS 25% LVPWd 1.0 (0.6-1.2) Ao Diam (2.0-3.7) 2 DIMENSIONAL ASSESSMENT: RIGHT ATRIUM: NORMAL LEFT ATRIUM: DILATED RIGHT VENTRICLE: NORMAL LEFT VENTRICLE: NORMAL TRICUSPID VALVE: NORMAL MITRAL VALVE: NORMAL PULMONIC VALVE: NORMAL AORTIC VALVE: SCLEROSIS PERICARDIAL EFFUSION: NONE AORTIC ROOT: NORMAL LEFT VENTRICULAR WALL MOTION: NORMAL EJECTION FRACTION AND SIZE DOPPLER/COLOR FLOW: MILD TRICUSPID REGURGITATION. NORMAL RIGHT VENTRICULAR SYSTOLIC PRESSURE COMMENTS: DIASTOLIC DYSFUNCTION. AORTIC SCLEROSIS NO STENOSIS. LEFT ATRIAL ENLARGEMENT. NORMAL EJECTION FRACTION AND SIZE. Medical Problem List: Acute on chronic diastolic CHF complicated with COPD exacerbation on chronic oxygen, EF 51% Obesity hypoventilation syndrome with suspected underlying obstructive sleep apnea Depression with anxiety Chronic renal disease stage III with alkalosis CAD Hypertension Chronic pain GERD Inflammation to the umbilicus Morbid obesity, BMI 58 Brief History of Present Illness: 70-year-old female came to the hospital with shortness of breath. Patient has a longstanding history of COPD, morbid obesity, chronic pain, and diastolic heart failure. Patient also with generalized weakness which is worsened by her morbid obesity. Patient was evaluated emergency room. Patient admitted for CHF exacerbation. Hospital Course: Patient presented with shortness of breath secondary to acute on chronic diastolic CHF complicated with COPD exacerbation. Patient with ejection fraction of 51%. Patient was admitted for treatment. Patient has been hospitalized in the past for similar issues. Patient also with underlying chronic renal disease stage III. Medications were adjusted in the course of her stay. Patient did well with CHF and COPD treatment. Patient was considering skilled placement but preferred to go home with hospice. Home with hospice will be arranged at discharge. Patient has significantly improved. At discharge she will continue with home oxygen to maintain sats above 93%. Patient currently on 1 L per nasal cannula. For her CHF, the patient will continue with the 1500 c c/day fluid restriction and low-salt diet. At discharge she will continue with her current medications of Lasix 40 mg 1 pill twice daily and Diamox 500 mg daily. The patient will also continue with Toprol-XL 50 mg daily. Recommend to monitor her weight daily. If her weight increases by more than 5 pounds further adjustment in medication may be required. Recommend to recheck labBMP in 1 week to monitor her progress. Patient may follow-up with her PCP/nephrology within 1 week as well. Further adjustment in medication can be done by hospice. For her COPD patient has remained stable. As mentioned above patient will continue with home oxygen to maintain sats above 93%. Currently on 1-3 per nasal cannula. At discharge we will continue with prednisone 20 mg 1 pill twice daily for 7 days and 1 pill once daily for 7 days. At discharge the patient may continue with Brovana 1 unit dose twice daily and albuterol 1 unit dose 3 times a day as needed for shortness of breath. Patient may follow-up with pulmonology as an outpatient to further monitor and address. Further adjustment in medication can be done by hospice. Patient with hypertension. Medications have been adjusted. Patient will no longer take lisinopril. Patient previously on lisinopril 40 mg daily. At discharge the patient will continue with Toprol-XL 50 mg daily. Recommend to maintain blood pressure less than 130/80. Further adjustment can be done by hospice or her PCP. Patient with underlying CAD. At discharge patient will continue with aspirin 81 mg daily. Patient with depression with anxiety. At discharge we will continue with her current medications of sertraline 200 mg daily and clonazepam 1 mg 1 pill twice daily as needed for anxiety. Further adjustment can be done by hospice. Patient with chronic pain. Patient previously on Neurontin 4 mg 3 times a day. This was discontinued due to her CHF. At discharge she will continue with oxycodone 10/325 mg 1 pill 4 times a day as needed for pain. Further adjustment can be done by hospice. Patient with underlying GERD. At discharge she will continue with Nexium 40 mg daily. Patient had slight irritation to the umbilicus. This can be cleaned with normal saline daily. Recommend to continue Bactroban ointment twice daily for at least 7 days. Patient with chronic renal disease stage III. Overall stable. Future medications may to be renally dosed. No further use of nonsteroidal anti- inflammatories. Recommend to recheck labBMP in 1 week. Follow-up with nephrology to further monitor and address her medications. Patient with obesity hypoventilation syndrome. Patient with morbid obesity BMI greater than 58. Patient may require evaluation for obstructive sleep apnea. This can be further addressed with pulmonology. Vital Signs/Physical Exam: Temp Pulse Resp BP Pulse Ox 97.5 F 65 19 132/63 97 03/02/21 04:00 03/02/21 04:00 03/02/21 04:00 03/02/21 04:00 03/02/21 04:00 General: Alert, In no apparent distress, Oriented x3, Cooperative HEENT: Atraumatic Neck: Supple Respiratory: Clear to auscultation bilaterally, Other (Currently on 1 to 2 L per nasal cannula) Cardiovascular: Normal pulses, Regular rate/rhythm Gastrointestinal: Normal bowel sounds, No tenderness, No masses, No rebound, No guarding, Other (Patient morbidly obese.) Integumentary: No erythema, No warmth, No cyanosis, Other (Swelling to the lower extremities improved. Irritation to the umbilicus.) Neurological: Normal speech, Normal strength at 5/5 x4 extr, Normal tone, Normal affect Laboratory Data at Discharge: WBC 13.50 K/uL (4.3-10.9) H 03/01/21 05:30 Hgb 13.8 g/dL (12.0-15.0) 03/01/21 05:30 Hct 43.1 % (36.0-45.0) 03/01/21 05:30 Plt Count 220 K/uL (152-406) 03/01/21 05:30 PT 12.2 SECONDS (9.5-12.5) 02/24/21 14:19 INR 1.06 02/24/21 14:19 APTT 31.7 SECONDS (24.3-36.9) 02/24/21 14:19 Sodium 142 mmol/L (136-145) 03/01/21 05:30 Potassium 3.9 mmol/L (3.5-5.1) 03/01/21 05:30 BUN 25 mg/dL (7-18) H 03/01/21 05:30 Creatinine 0.90 mg/dL (0.55-1.3) 03/01/21 05:30 Glucose 134 mg/dL (74-106) H 03/01/21 05:30 Phosphorus 2.6 mg/dL (2.5-4.9) 02/27/21 06:06 Magnesium 1.9 mg/dL (1.8-2.4) 03/01/21 05:30 Total Bilirubin 0.3 mg/dL (0.2-1.0) 02/25/21 05:30 AST 22 U/L (15-37) 02/25/21 05:30 ALT 20 U/L (12-78) 02/25/21 05:30 Alkaline Phosphatase 96 U/L (45-117) 02/25/21 05:30 Troponin I < 0.02 ng/mL (0.0-0.045) 02/25/21 05:30 Amylase 37 U/L (25-115) 02/24/21 14:00 Lipase 33 U/L (73-393) L 02/24/21 14:00 Home Medications: Esomeprazole Magnesium 40 mg PO DAILY 11/03/19 Metoprolol Succinate [Toprol Xl*] 50 mg PO DAILY 11/03/19 Sertraline HCl 2 tab PO DAILY 11/03/19 clonazePAM [Clonazepam] 1 mg PO BIDP PRN 11/03/19 Pantoprazole [Protonix Tab*] 40 mg PO DAILY #30 tab 11/06/19 Oxycodone HCl/Acetaminophen [Oxycodone-Acetaminophen 10-325] 1 each PO Q4H 03/15/20 Albuterol Neb [Proventil 0.083% Neb Soln] 3 ml NEB TID PRN #90 amp 03/02/21 Arformoterol Tartrate [Brovana] 2 ml NEB BIDRESP #60 vial.neb 03/02/21 Aspirin [Aspirin EC 81 MG] 81 mg PO DAILY #90 tablet. 03/02/21 Furosemide [Lasix*] 40 mg PO BIDL #60 tab 03/02/21 Mupirocin Oint [Bactroban 2% Ointment*] 1 appl TOP BID #1 tube 03/02/21 acetaZOLAMIDE [Diamox*] 500 mg PO Q24H #60 tab 03/02/21 predniSONE [Prednisone*] 20 mg PO SEECOM #21 tab 03/02/21 New Medications: Aspirin [Aspirin EC 81 MG] 81 mg PO DAILY #90 tablet. Mupirocin Oint [Bactroban 2% Ointment*] 1 appl TOP BID #1 tube Arformoterol Tartrate [Brovana] 2 ml NEB BIDRESP #60 vial.neb acetaZOLAMIDE [Diamox*] 500 mg PO Q24H #60 tab Furosemide [Lasix*] 40 mg PO BIDL #60 tab predniSONE [Prednisone*] 20 mg PO SEECOM #21 tab Albuterol Neb [Proventil 0.083% Neb Soln] 3 ml NEB TID PRN #90 amp PRN Reason: Shortness Of Breath Physician Discharge Instructions: Patient presented with shortness of breath secondary to acute on chronic diastolic CHF complicated with COPD exacerbation. Patient with ejection fraction of 51%. Patient was admitted for treatment. Patient has been hospitalized in the past for similar issues. Patient also with underlying chronic renal disease stage III. Medications were adjusted in the course of her stay. Patient did well with CHF and COPD treatment. Patient was considering skilled placement but preferred to go home with hospice. Home with hospice will be arranged at discharge. Patient has significantly improved. At discharge she will continue with home oxygen to maintain sats above 93%. Patient currently on 1 L per nasal cannula. For her CHF, the patient will continue with the 1500 cc/day fluid restriction and low-salt diet. At discharge she will continue with her current medications of Lasix 40 mg 1 pill twice daily and Diamox 500 mg daily. The patient will also continue with Toprol-XL 50 mg daily. Recommend to monitor her weight daily. If her weight increases by more than 5 pounds further adjustment in medication may be required. Recommend to recheck labBMP in 1 week to monitor her progress. Patient may follow-up with her PCP/nephrology within 1 week as well. Further adjustment in medication can be done by hospice. For her COPD patient has remained stable. As mentioned above patient will continue with home oxygen to maintain sats above 93%. Currently on 1-3 per nasal cannula. At discharge we will continue with prednisone 20 mg 1 pill twice daily for 7 days and 1 pill once daily for 7 days. At discharge the patient may continue with Brovana 1 unit dose twice daily and albuterol 1 unit dose 3 times a day as needed for shortness of breath. Patient may follow-up with pulmonology as an outpatient to further monitor and address. Further adjustment in medication can be done by hospice. Patient with hypertension. Medications have been adjusted. Patient will no longer take lisinopril. Patient previously on lisinopril 40 mg daily. At discharge the patient will continue with Toprol-XL 50 mg daily. Recommend to maintain blood pressure less than 130/80. Further adjustment can be done by hospice or her PCP. Patient with underlying CAD. At discharge patient will continue with aspirin 81 mg daily. Patient with depression with anxiety. At discharge we will continue with her current medications of sertraline 200 mg daily and clonazepam 1 mg 1 pill twice daily as needed for anxiety. Further adjustment can be done by hospice. Patient with chronic pain. Patient previously on Neurontin 4 mg 3 times a day. This was discontinued due to her CHF. At discharge she will continue with oxycodone 10/325 mg 1 pill 4 times a day as needed for pain. Further adjustment can be done by hospice. Patient with underlying GERD. At discharge she will continue with Nexium 40 mg daily. Patient had slight irritation to the umbilicus. This can be cleaned with normal saline daily. Recommend to continue Bactroban ointment twice daily for at least 7 days. Patient with chronic renal disease stage III. Overall stable. Future medications may to be renally dosed. No further use of nonsteroidal anti- inflammatories. Recommend to recheck labBMP in 1 week. Follow-up with nephrology to further monitor and address her medications. Patient with obesity hypoventilation syndrome. Patient with morbid obesity BMI greater than 58. Patient may require evaluation for obstructive sleep apnea. This can be further addressed with pulmonology. Diet: AHA Activity: Fall precautions Followup: Unknown,U [Primary Care Provider] - Time spent managing pt's care (in minutes): 55
[2021-03-02 06:23] LABS: Absolute Lymphocytes (CBC) 1.5 K/uL (0.7-4.9); Basophils % 0.2 % (0-1.3); Hematocrit 42.3 % (36.0-45.0); Lymphocytes % 9.7 % (15.3-44.8); MPV 7.3 fL (7.6-11.3); RBC Red Blood Cell Count 4.86 M/uL (3.86-4.86)
[2021-03-02 06:37] LABS: Magnesium 2.2 mg/dL (1.8-2.4); Potassium 3.7 mmol/L (3.5-5.1)
[2021-03-02 07:05] LABS: Blood Morphology Comment NOT SEEN (NOT SEEN); Platelet Estimate ADEQ; White Blood Cell Scan OK (OK)
[2021-03-02] MEDS: ARFORMOTEROL TARTRATE 15 MCG/2 ML VIAL.NEB NEB SCH ×2 (08:00→20:00)
[2021-03-02] MEDS ORDERED: POTASSIUM 25 MEQ EFFERV TAB PO ONE (09:00)
[2021-03-02] MEDS: ASPIRIN EC 81 MG TAB PO SCH (09:29)
[2021-03-02] MEDS: CLOPIDOGREL 75 MG TABLET PO SCH (09:29)
[2021-03-02] MEDS: FUROSEMIDE 40 MG TABLET PO SCH ×2 (09:29→17:00)
[2021-03-02] MEDS: predniSONE 20 MG TAB PO SCH ×2 (09:30→21:24)
[2021-03-02] MEDS: SERTRALINE HCL 100 MG TAB PO SCH (09:30)
[2021-03-02] MEDS: PANTOPRAZOLE 40MG TABLET PO SCH (09:30)
[2021-03-02] MEDS: DOCUSATE NA 100 MG CAP PO SCH (09:31)
[2021-03-02] MEDS: MUPIROCIN 2% OINT 22GM TUBE TOP SCH ×3 (09:31→21:25)
[2021-03-02] MEDS: ENOXAPARIN 40 MG/0.4 ML SQ SCH (09:32)
[2021-03-02] MEDS: METOPROLOL XL 50 MG TAB PO SCH (09:33)
[2021-03-02] MEDS: acetaZOLAMIDE 250 MG TAB PO SCH (12:30)
[2021-03-02] MEDS: clonazePAM 1 MG TAB PO PRN (14:54)
[2021-03-02] MEDS: ACETAMINOPHEN 500 MG TAB PO PRN (18:12)
--- NOTE | 2021-03-02 20:20 | P.PN ---
Date of Service: 03/02/21 Vital Signs Temp Pulse Resp BP Pulse Ox 98.2 F 85 18 92/56 L 98 03/02/21 16:00 03/02/21 17:00 03/02/21 19:13 03/02/21 17:00 03/02/21 16:00 Medications Acetaminophen (Acetaminophen 500 Mg Tab) 500 mg PO Q4HP PRN PRN Reason: TEMP > 100.4' F OR MILD PAIN Last Admin: 03/02/21 18:12 Dose: 500 mg Documented by: Acetazolamide (Acetazolamide 250 Mg Tab) 500 mg PO Q24H [facility] Last Admin: 03/02/21 12:30 Dose: 500 mg Documented by: Albuterol Sulfate (Albuterol 2.5 Mg/3 Ml Neb Maggie) 2.5 mg NEB [id number] PRN PRN Reason: SHORTNESS OF BREATH Arformoterol Tartrate (Arformoterol Tartrate 15 Mcg/2 Ml Vial.Neb) 15 mcg NEB BIDRESP [facility] Last Admin: 03/02/21 08:00 Dose: Not Given Documented by: Aspirin (Aspirin Ec 81 Mg Tab) 81 mg PO DAILY [facility] Last Admin: 03/02/21 09:29 Dose: 81 mg Documented by: Clonazepam (Clonazepam 1 Mg Tab) 1 mg PO BID PRN PRN Reason: ANXIETY Last Admin: 03/02/21 14:54 Dose: 1 mg Documented by: Clopidogrel Bisulfate (Clopidogrel 75 Mg Tablet) 75 mg PO DAILY [facility] Last Admin: 03/02/21 09:29 Dose: 75 mg Documented by: Docusate Sodium (Docusate Na 100 Mg Cap) 100 mg PO DAILY [facility] Last Admin: 03/02/21 09:31 Dose: 100 mg Documented by: Enoxaparin Sodium (Enoxaparin 40 Mg/0.4 Ml) 40 mg SQ DAILY [facility] Last Admin: 03/02/21 09:32 Dose: 40 mg Documented by: Furosemide (Furosemide 40 Mg Tablet) 40 mg PO BIDL [facility] Last Admin: 03/02/21 17:00 Dose: Not Given Documented by: Lactulose (Lactulose 20 Gm/30 Ml Ucup) 10 gm PO BID PRN PRN Reason: CONSTIPATION Last Admin: 02/28/21 17:51 Dose: 10 gm Documented by: Metoprolol Succinate (Metoprolol Xl 50 Mg Tab) 50 mg PO DAILY [facility] Last Admin: 12/09/21 09:33 Dose: 50 mg Documented by: Mupirocin (Mupirocin 2% Oint 22gm Tube) 1 appl TOP TID [facility] Last Admin: 03/02/21 14:42 Dose: 1 appl Documented by: Ondansetron HCl (Ondansetron 4 Mg/2 Ml Vial) 4 mg IV Q6HP PRN PRN Reason: NAUSEA / VOMITING Oxycodone HCl (Oxycodone Hcl 5 Mg Tab) 5 mg PO Q4H PRN PRN Reason: Pain scale 5-7 (Moderate) Last Admin: 03/02/21 19:13 Dose: 5 mg Documented by: Pantoprazole Sodium (Pantoprazole 40mg Tablet) 40 mg PO DAILY [facility]; Protocol Last Admin: 03/02/21 09:30 Dose: 40 mg Documented by: Prednisone (Prednisone 20 Mg Tab) 20 mg PO BID [facility] Last Admin: 03/02/21 09:30 Dose: 20 mg Documented by: Sertraline HCl (Sertraline Hcl 100 Mg Tab) 200 mg PO DAILY [facility] Last Admin: 03/02/21 09:30 Dose: 200 mg Documented by: Sodium Chloride (Flush Normal Saline 10 Ml) 10 ml IV BID [facility] Last Admin: 03/02/21 09:00 Dose: 10 ml Documented by: Microbiology Results 02/24/21 14:10 Blood - Blood Aerobic Blood Culture - Final No growth in 5 days. 02/24/21 14:10 Blood - Blood Anaerobic Blood Culture - Final No growth in 5 days. 02/24/21 14:00 Blood - Blood Aerobic Blood Culture - Final No growth in 5 days. 02/24/21 14:00 Blood - Blood Anaerobic Blood Culture - Final No growth in 5 days. Assessment/ Plan: Nephrology No dyspnea. +ODE No chest pain Weakness No acute events overnight Vitals, medications, blood work and imaging reviewed in the chart General: Oriented x3, Cooperative HEENT: Atraumatic Neck: Supple Respiratory: Diminished Cardiovascular: Regular rate/rhythm, Edema Gastrointestinal: Soft and benign, Non-distended Musculoskeletal: No clubbing, No contractures Integumentary: No cyanosis, Skin lesion Neurological: Normal speech Blood work reviewed in the chart. Imagings Data: EXAM DESCRIPTION: RAD - Chest Single View - 02/26/2021 7:04 am CLINICAL HISTORY: pneumonia COMPARISON: February 24 TECHNIQUE: AP portable chest image was obtained 02/26/2021 7:04 am . FINDINGS: Lung volumes remain low. Very large body habitus and portable technique accentuates all chest findings. Cardiomegaly and prominent vasculature again noted. No new mass or consolidation. Suspicion for mild CHF/volume overload remains. Left base assessment is limited. No measurable pleural effusion and no pneumothorax. No acute bony abnormality seen. No acute aortic findings suspected. IMPRESSION: As detailed above, this limited portable study is without significant change from February 24. Conclusions/Impression: Hyperkalemia/ Hypokalemia -Continue Lasix -Start spironolactone Alkalosis -Continue daily Diamox HTN with CHF -Continue Metoprolol Diastolic CHF, A/C -Continue Lasix -Agree with fluid restriction -Low sodium diet Hyperglycemia on prednisone -No sugar diet -Wean prednisone as tolerated Moderate malnutrition -Protein supplementation as tolerated
[2021-03-02] MEDS: SPIRONOLACTONE 25 MG TABLET PO SCH (21:25)
[2021-03-02 21:57] VITALS: O2SAT 97
--- NOTE | 2021-03-03 05:57 | P.DS ---
Admission Date: 02/24/21 Discharge Date: 03/03/21 Primary Care Provider: Dr. Benitez Disposition: HOSPICE-HOME Discharge Condition: GOOD Reason for Admission: Acute CHF exacerbation, diastolic; Acute COPD exacerbation Consultations: Nephrology-Dr. Benitez Procedures: COVID: negative CXR: COMPARISON: Portable March 2019 TECHNIQUE: AP portable chest image was obtained 02/24/2021 3:03 pm . FINDINGS: Lung volumes are very low. Low lung volumes, large body habitus and under penetrated portable technique accentuate heart, vasculature and lung markings. No peripheral mass or consolidations seen. Early interstitial edema or infiltrate could be masked in this setting. Heart and vasculature are normal. No measurable pleural effusion and no pneumothorax. No acute bony abnormality seen. No acute aortic findings suspected. IMPRESSION: Limited portable study with no peripheral mass or consolidation. Above detailed limitations could mask early edema or infiltrate. Follow up CXR: COMPARISON: February 24 TECHNIQUE: AP portable chest image was obtained 02/26/2021 7:04 am . FINDINGS: Lung volumes remain low. Very large body habitus and portable technique accentuates all chest findings. Cardiomegaly and prominent vasculature again noted. No new mass or consolidation. Suspicion for mild CHF/volume overload remains. Left base assessment is limited. No measurable pleural effusion and no pneumothorax. No acute bony abnormality seen. No acute aortic findings suspected. IMPRESSION: As detailed above, this limited portable study is without significant change from February 24. ECHO 2019: MEASUREMENTS (cm) DIASTOLIC (NORMALS) SYSTOLIC (NORMALS) IVSd 1.0 (0.6-1.2) LA Diam 4.1 (1.9-4.0) LVEF 51% LVIDd 3.0 (3.5-5.7) LVIDs 2.3 (2.0-3.5) %FS 25% LVPWd 1.0 (0.6-1.2) Ao Diam (2.0-3.7) 2 DIMENSIONAL ASSESSMENT: RIGHT ATRIUM: NORMAL LEFT ATRIUM: DILATED RIGHT VENTRICLE: NORMAL LEFT VENTRICLE: NORMAL TRICUSPID VALVE: NORMAL MITRAL VALVE: NORMAL PULMONIC VALVE: NORMAL AORTIC VALVE: SCLEROSIS PERICARDIAL EFFUSION: NONE AORTIC ROOT: NORMAL LEFT VENTRICULAR WALL MOTION: NORMAL EJECTION FRACTION AND SIZE DOPPLER/COLOR FLOW: MILD TRICUSPID REGURGITATION. NORMAL RIGHT VENTRICULAR SYSTOLIC PRESSURE COMMENTS: DIASTOLIC DYSFUNCTION. AORTIC SCLEROSIS NO STENOSIS. LEFT ATRIAL ENLARGEMENT. NORMAL EJECTION FRACTION AND SIZE. Medical Problem List: Acute on chronic diastolic CHF complicated with COPD exacerbation on chronic oxygen, EF 51% Obesity hypoventilation syndrome with suspected underlying obstructive sleep apnea Depression with anxiety Chronic renal disease stage III with alkalosis CAD Hypertension Chronic pain GERD Inflammation to the umbilicus Morbid obesity, BMI 58 Brief History of Present Illness: 70-year-old female came to the hospital with shortness of breath. Patient has a longstanding history of COPD, morbid obesity, chronic pain, and diastolic heart failure. Patient also with generalized weakness which is worsened by her morbid obesity. Patient was evaluated emergency room. Patient admitted for CHF exacerbation. Hospital Course: Patient presented with shortness of breath secondary to acute on chronic diastolic CHF complicated with COPD exacerbation. Patient with ejection fraction of 51%. Patient was admitted for treatment. Patient has been hospitalized in the past for similar issues. Patient also with underlying chronic renal disease stage III. Medications were adjusted in the course of her stay. Patient did well with CHF and COPD treatment. Patient was considering skilled placement but preferred to go home with hospice. Home with hospice will be arranged at discharge. Patient has significantly improved. At discharge she will continue with home oxygen to maintain sats above 93%. Patient currently on 1 L per nasal cannula. For her CHF, the patient will continue with the 1500 c c/day fluid restriction and low-salt diet. At discharge she will continue with her current medications of Lasix 40 mg 1 pill twice daily and Diamox 500 mg daily. The patient will also continue with Toprol-XL 50 mg daily. Recommend to monitor her weight daily. If her weight increases by more than 5 pounds further adjustment in medication may be required. Recommend to recheck labBMP in 1 week to monitor her progress. Patient may follow-up with her PCP/nephrology within 1 week as well. Further adjustment in medication can be done by hospice. Discharge was delayed 1 day in preparation for DME at home including a bariatric bed for hospice. For her COPD patient has remained stable. As mentioned above patient will continue with home oxygen to maintain sats above 93%. Currently on 1-3 per nasal cannula. At discharge we will continue with prednisone 20 mg 1 pill twice daily for 7 days and 1 pill once daily for 7 days. At discharge the patient may continue with Brovana 1 unit dose twice daily and albuterol 1 unit dose 3 times a day as needed for shortness of breath. Patient may follow-up with pulmonology as an outpatient to further monitor and address. Further adjustment in m edication can be done by hospice. Patient with hypertension. Medications have been adjusted. Patient will no longer take lisinopril. Patient previously on lisinopril 40 mg daily. At discharge the patient will continue with Toprol-XL 50 mg daily. Recommend to maintain blood pressure less than 130/80. Further adjustment can be done by hospice or her PCP. Patient with underlying CAD. At discharge patient will continue with aspirin 81 mg daily. Patient with depression with anxiety. At discharge we will continue with her current medications of sertraline 200 mg daily and clonazepam 1 mg 1 pill twice daily as needed for anxiety. Further adjustment can be done by hospice. Patient with chronic pain. Patient previously on Neurontin 4 mg 3 times a day. This was discontinued due to her CHF. At discharge she will continue with oxycodone 10/325 mg 1 pill 4 times a day as needed for pain. Further adjustment can be done by hospice. Patient with underlying GERD. At discharge she will continue with Nexium 40 mg daily. Patient had slight irritation to the umbilicus. This can be cleaned with normal saline daily. Recommend to continue Bactroban ointment twice daily for at least 7 days. Patient with chronic renal disease stage III. Overall stable. Future medications may to be renally dosed. No further use of nonsteroidal anti- inflammatories. Recommend to recheck labBMP in 1 week. Follow-up with nephrology to further monitor and address her medications. Patient with obesity hypoventilation syndrome. Patient with morbid obesity BMI greater than 58. Patient may require evaluation for obstructive sleep apnea. This can be further addressed with pulmonology. Vital Signs/Physical Exam: Temp Pulse Resp BP Pulse Ox 97.4 F 81 18 104/56 L 98 03/03/21 04:00 03/03/21 04:00 03/03/21 04:00 03/03/21 04:00 03/03/21 04:00 General: Alert, In no apparent distress, Oriented x3, Cooperative HEENT: Atraumatic Neck: Supple Respiratory: Clear to auscultation bilaterally, Other (Patient on 1 L per nasal cannula) Cardiovascular: Irregular heart rate/rhythm (A. fib rate controlled) Gastrointestinal: Normal bowel sounds, No tenderness, No masses, No rebound, No guarding, Other (Morbid obesity noted) Musculoskeletal: No tenderness, No warmth Neurological: Normal speech, Normal strength at 5/5 x4 extr, Normal tone, Normal affect Lymphatics: Other (Chronic lymphedema) Laboratory Data at Discharge: WBC 15.90 K/uL (4.3-10.9) H D 03/02/21 06:14 Hgb 13.5 g/dL (12.0-15.0) 03/02/21 06:14 Hct 42.3 % (36.0-45.0) 03/02/21 06:14 Plt Count 222 K/uL (152-406) 03/02/21 06:14 PT 12.2 SECONDS (9.5-12.5) 02/24/21 14:19 INR 1.06 02/24/21 14:19 APTT 31.7 SECONDS (24.3-36.9) 02/24/21 14:19 Sodium 143 mmol/L (136-145) 03/02/21 06:14 Potassium 3.7 mmol/L (3.5-5.1) 03/02/21 06:14 BUN 33 mg/dL (7-18) H 03/02/21 06:14 Creatinine 0.85 mg/dL (0.55-1.3) 03/02/21 06:14 Glucose 146 mg/dL (74-106) H 03/02/21 06:14 Phosphorus 2.6 mg/dL (2.5-4.9) 02/27/21 06:06 Magnesium 2.2 mg/dL (1.8-2.4) 03/02/21 06:14 Total Bilirubin 0.3 mg/dL (0.2-1.0) 02/25/21 05:30 AST 22 U/L (15-37) 02/25/21 05:30 ALT 20 U/L (12-78) 02/25/21 05:30 Alkaline Phosphatase 96 U/L (45-117) 02/25/21 05:30 Troponin I < 0.02 ng/mL (0.0-0.045) 02/25/21 05:30 Amylase 37 U/L (25-115) 02/24/21 14:00 Lipase 33 U/L (73-393) L 02/24/21 14:00 Home Medications: Esomeprazole Magnesium 40 mg PO DAILY 11/03/19 Metoprolol Succinate [Toprol Xl*] 50 mg PO DAILY 11/03/19 Sertraline HCl 2 tab PO DAILY 11/03/19 clonazePAM [Clonazepam] 1 mg PO BIDP PRN 11/03/19 Pantoprazole [Protonix Tab*] 40 mg PO DAILY #30 tab 11/06/19 Oxycodone HCl/Acetaminophen [Oxycodone-Acetaminophen 10-325] 1 each PO Q4H 03/15/20 Albuterol Neb [Proventil 0.083% Neb Soln] 3 ml NEB TID PRN #90 amp 03/02/21 Arformoterol Tartrate [Brovana] 2 ml NEB BIDRESP #60 vial.neb 03/02/21 Aspirin [Aspirin EC 81 MG] 81 mg PO DAILY #90 tablet. 03/02/21 Furosemide [Lasix*] 40 mg PO BIDL #60 tab 03/02/21 Mupirocin Oint [Bactroban 2% Ointment*] 1 appl TOP BID #1 tube 03/02/21 acetaZOLAMIDE [Diamox*] 500 mg PO Q24H #60 tab 03/02/21 predniSONE [Prednisone*] 20 mg PO SEECOM #21 tab 03/02/21 New Medications: Aspirin [Aspirin EC 81 MG] 81 mg PO DAILY #90 tablet. Mupirocin Oint [Bactroban 2% Ointment*] 1 appl TOP BID #1 tube Arformoterol Tartrate [Brovana] 2 ml NEB BIDRESP #60 vial.neb acetaZOLAMIDE [Diamox*] 500 mg PO Q24H #60 tab Furosemide [Lasix*] 40 mg PO BIDL #60 tab predniSONE [Prednisone*] 20 mg PO SEECOM #21 tab Albuterol Neb [Proventil 0.083% Neb Soln] 3 ml NEB TID PRN #90 amp PRN Reason: Shortness Of Breath Physician Discharge Instructions: Patient presented with shortness of breath secondary to acute on chronic diastolic CHF complicated with COPD exacerbation. Patient with ejection fraction of 51%. Patient was admitted for treatment. Patient has been hospitalized in the past for similar issues. Patient also with underlying chronic renal disease stage III. Medications were adjusted in the course of her stay. Patient did well with CHF and COPD treatment. Patient was considering skilled placement but preferred to go home with hospice. Home with hospice will be arranged at discharge. Patient has significantly improved. At discharge she will continue with home oxygen to maintain sats above 93%. Patient currently on 1 L per nasal cannula. For her CHF, the patient will continue with the 1500 cc/day fluid restriction and low-salt diet. At discharge she will continue with her current medications of Lasix 40 mg 1 pill twice daily and Diamox 500 mg daily. The patient will also continue with Toprol-XL 50 mg daily. Recommend to monitor her weight daily. If her weight increases by more than 5 pounds further adjustment in medication may be required. Recommend to recheck labBMP in 1 week to monitor her progress. Patient may follow-up with her PCP/nephrology within 1 week as well. Further adjustment in medication can be done by hospice. Discharge was delayed 1 day in preparation for DME at home including bariatric hospital bed. For her COPD patient has remained stable. As mentioned above patient will continue with home oxygen to maintain sats above 93%. Currently on 1-3 per nasal cannula. At discharge we will continue with prednisone 20 mg 1 pill twice daily for 7 days and 1 pill once daily for 7 days. At discharge the patient may continue with Brovana 1 unit dose twice daily and albuterol 1 unit dose 3 times a day as needed for shortness of breath. Patient may follow-up with pulmonology as an outpatient to further monitor and address. Further adjustment in medication can be done by hospice. Patient with hypertension. Medications have been adjusted. Patient will no longer take lisinopril. Patient previously on lisinopril 40 mg daily. At discharge the patient will continue with Toprol-XL 50 mg daily. Recommend to maintain blood pressure less than 130/80. Further adjustment can be done by hospice or her PCP. Patient with underlying CAD. At discharge patient will continue with aspirin 81 mg daily. Patient with depression with anxiety. At discharge we will continue with her current medications of sertraline 200 mg daily and clonazepam 1 mg 1 pill twice daily as needed for anxiety. Further adjustment can be done by hospice. Patient with chronic pain. Patient previously on Neurontin 4 mg 3 times a day. This was discontinued due to her CHF. At discharge she will continue with oxycodone 10/325 mg 1 pill 4 times a day as needed for pain. Further adjustment can be done by hospice. Patient with underlying GERD. At discharge she will continue with Nexium 40 mg daily. Patient had slight irritation to the umbilicus. This can be cleaned with normal saline daily. Recommend to continue Bactroban ointment twice daily for at least 7 days. Patient with chronic renal disease stage III. Overall stable. Future medications may to be renally dosed. No further use of nonsteroidal anti- inflammatories. Recommend to recheck labBMP in 1 week. Follow-up with nephrology to further monitor and address her medications. Patient with obesity hypoventilation syndrome. Patient with morbid obesity BMI greater than 58. Patient may require evaluation for obstructive sleep apnea. This can be further addressed with pulmonology. Diet: AHA Activity: Fall precautions Followup: Unknown,U [Primary Care Provider] - Time spent managing pt's care (in minutes): 55
[2021-03-03] MEDS: ARFORMOTEROL TARTRATE 15 MCG/2 ML VIAL.NEB NEB SCH (08:00)
[2021-03-03] MEDS ORDERED: POTASSIUM CL SA 10 MEQ TAB PO ONE (09:56)
[2021-03-03] MEDS: OXYCODONE HCL 5 MG TAB PO PRN ×2 (10:02→13:59)
[2021-03-03] MEDS: ASPIRIN EC 81 MG TAB PO SCH (10:02)
[2021-03-03] MEDS: DOCUSATE NA 100 MG CAP PO SCH (10:02)
[2021-03-03] MEDS: FUROSEMIDE 40 MG TABLET PO SCH (10:03)
[2021-03-03] MEDS: SPIRONOLACTONE 25 MG TABLET PO SCH (10:03)
[2021-03-03] MEDS: SERTRALINE HCL 100 MG TAB PO SCH (10:03)
[2021-03-03] MEDS: PANTOPRAZOLE 40MG TABLET PO SCH (10:04)
[2021-03-03] MEDS: ENOXAPARIN 40 MG/0.4 ML SQ SCH (10:04)
[2021-03-03] MEDS: CLOPIDOGREL 75 MG TABLET PO SCH (10:05)
[2021-03-03] MEDS: METOPROLOL XL 50 MG TAB PO SCH (10:05)
[2021-03-03] MEDS: predniSONE 20 MG TAB PO SCH (10:05)
[2021-03-03] MEDS: MUPIROCIN 2% OINT 22GM TUBE TOP SCH ×2 (10:05→13:59)
[2021-03-03 12:15] VITALS: BP 120/76; TEMP 97.2
[2021-03-03] MEDS: acetaZOLAMIDE 250 MG TAB PO SCH (12:19)
[2021-03-03] MEDS: ACETAMINOPHEN 500 MG TAB PO PRN (12:24)
--- NOTE | 2021-03-03 18:10 | P.PN ---
Date of Service: 03/03/21 Vital Signs Temp Pulse Resp BP Pulse Ox 97.2 F 74 16 120/76 100 03/03/21 12:00 03/03/21 12:00 03/03/21 12:00 03/03/21 12:00 03/03/21 12:00 Microbiology Results 02/24/21 14:10 Blood - Blood Aerobic Blood Culture - Final No growth in 5 days. 02/24/21 14:10 Blood - Blood Anaerobic Blood Culture - Final No growth in 5 days. 02/24/21 14:00 Blood - Blood Aerobic Blood Culture - Final No growth in 5 days. 02/24/21 14:00 Blood - Blood Anaerobic Blood Culture - Final No growth in 5 days. Assessment/ Plan: Nephrology No dyspnea. +SHIN No chest pain Weakness No acute events overnight Vitals, medications, blood work and imaging reviewed in the chart General: Oriented x3, Cooperative. Obese. HEENT: Atraumatic Neck: Supple Respiratory: Diminished Cardiovascular: Regular rate/rhythm, Edema Gastrointestinal: Soft and benign, Non-distended Musculoskeletal: No clubbing, No contractures Integumentary: No cyanosis, Skin lesion Neurological: Normal speech Blood work reviewed in the chart. Imagings Data: EXAM DESCRIPTION: RAD - Chest Single View - 02/26/2021 7:04 am CLINICAL HISTORY: pneumonia COMPARISON: February 24 TECHNIQUE: AP portable chest image was obtained 02/26/2021 7:04 am . FINDINGS: Lung volumes remain low. Very large body habitus and portable technique accentuates all chest findings. Cardiomegaly and prominent vasculature again noted. No new mass or consolidation. Suspicion for mild CHF/volume overload remains. Left base assessment is limited. No measurable pleural effusion and no pneumothorax. No acute bony abnormality seen. No acute aortic findings suspected. IMPRESSION: As detailed above, this limited portable study is without significant change from February 24. Conclusions/Impression: Hyperkalemia/ Hypokalemia -Continue Lasix -Continue spironolactone Alkalosis -Continue daily Diamox HTN with CHF -Continue Metoprolol Diastolic CHF, A/C -Continue Lasix -Agree with fluid restriction -Low sodium diet Hyperglycemia on prednisone -No sugar diet -Wean prednisone as tolerated Moderate malnutrition -Protein supplementation as tolerated
== END 2021-03-03 15:40 | disposition hospice, home (50) | DRG 291 ==
LOC: ER 13:08 → ERHOLD 16:51 → 2ND 20:04
PROVIDERS: ADMIT Hospitalist; ATTEND Family Medicine
PROC: 5A09557 Assistance with Respiratory Ventilation, Greater than 96 Consecutive Hours, Continuous Positive Airway Pressure (ICD-10-PCS; principal; 2021-02-24)
DX: I13.0 Hypertensive heart and chronic kidney disease with heart failure and stage 1 through stage 4 chronic kidney disease, or unspecified chronic kidney disease (principal); I50.33 Acute on chronic diastolic (congestive) heart failure; J44.1 Chronic obstructive pulmonary disease with (acute) exacerbation; E66.2 Morbid (severe) obesity with alveolar hypoventilation; Z68.44 Body mass index [BMI] 60.0-69.9, adult; E87.3 Alkalosis; E44.0 Moderate protein-calorie malnutrition; N18.30 Chronic kidney disease, stage 3 unspecified; K21.9 Gastro-esophageal reflux disease without esophagitis; G89.29 Other chronic pain; M54.9 Dorsalgia, unspecified; E87.5 Hyperkalemia; L08.82 Omphalitis not of newborn; E87.6 Hypokalemia; I25.10 Atherosclerotic heart disease of native coronary artery without angina pectoris; F41.8 Other specified anxiety disorders; R73.9 Hyperglycemia, unspecified; F17.210 Nicotine dependence, cigarettes, uncomplicated; Z88.5 Allergy status to narcotic agent; Z88.1 Allergy status to other antibiotic agents; Z88.8 Allergy status to other drugs, medicaments and biological substances; Z79.899 Other long term (current) drug therapy; Z85.828 Personal history of other malignant neoplasm of skin; Z90.710 Acquired absence of both cervix and uterus; Z79.52 Long term (current) use of systemic steroids; Z99.81 Dependence on supplemental oxygen; Z20.822 Contact with and (suspected) exposure to COVID-19
CPT/HCPCS: 36415; 51702; 71045; 80048; 80053; 80076; 81003; 81015; 82150; 82550; 82553; 83605; 83690; 83735; 83880; 84100; 84145; 84484; 85025; 85610; 85730; 87040; 93005; 94640; 94760; 97110; 97162; 97530; 99285; J1160; J1650; J1940; J2930; J7512; J7605; U0003